=== PATIENT | male | born 1935 | race Caucasian/White ===

== ENCOUNTER 2018-09-14 08:37 | Inpatient (IN) | payer MEDICARE, OTHER, SELFPAY ==
[2018-09-14] VITALS (10 sets, daily range): BP systolic 147–177; BP diastolic 73–97; PULSE 48–57; RESP 14–16; TEMP 36.1–36.8; O2SAT 94–97; BMI 30.5; BMI 29.3
--- NOTE | 2018-09-14 08:51 | ED.RN ---
off balance, lightheaded with standing. denies while sitting or at rest.
--- NOTE | 2018-09-14 08:58 | CT_ITS ---
STUDY: CT BRAIN WITHOUT CONTRAST REASON FOR EXAM: Male, 82 years old. Dizziness. RADIATION DOSAGE (If Supplied By Facility): CTDIvol = ( 44.99 ) mGy, DLP = ( 846.73 ) mGycm TECHNIQUE: Transaxial CT imaging of the brain was performed without administration of intravenous contrast material. Individualized dose optimization techniques were used for this CT. COMPARISON: None. FINDINGS: Normal soft tissue structures. Normal calvarium. There is mild cerebral atrophy with widening of the extra-axial spaces and ventricular dilatation. Normal white matter tracts of the cerebral hemispheres. Normal basal ganglia and thalami. Normal brainstem. Normal cerebellum. There is no intracranial hemorrhage. There are no findings of an acute ischemic infarction. Dense calcification of the vertebral arteries bilaterally. Atherosclerotic calcification of the cavernous portions of the internal carotid arteries bilaterally. Result thickening of the right maxillary sinus. Partial opacification of the ethmoid sinuses. Mucosal thickening of the sphenoid sinus. CT/Brain/Head without Contrast IMPRESSION: Chronic involutional changes of the brain. Sinusitis as described. Electronically Signed: Martin Chavez MD at 9:34 EST Tel [phone], Service support ,
--- NOTE | 2018-09-14 08:58 | EKG12_ITS ---
Test Reason : DIZZINESS Blood Pressure : / mmHG Vent. Rate : 051 BPM Atrial Rate : 051 BPM P-R Int : 176 ms QRS Dur : 090 ms QT Int : 392 ms P-R-T Axes : 019 -02 037 degrees QTc Int : 361 ms Sinus bradycardia Otherwise normal ECG Confirmed by ALEC WORKMAN, DEVYN ([id number]), international editorial producer NATHALIE DOMINGUEZ ([id number]) on 09/17/2018 9:41:48 AM Referred By: SHANON Confirmed By:DEVYN MICHAEL MD
[2018-09-14 09:23] LABS: Absolute Lymphocyte Count 1.29 X10^3/ul (0.83-4.51); Basophil# 0.04 X10^3/uL; Basophil% 0.8 % (0-1); Eosinophil# 0.37 X10^3/uL; Eosinophils% 7.1 % (0-5); Hematocrit 39.5 % (40-54); Hemoglobin 13.6 g/dl (13.0-16.5); Lymphocyte # 1.29 X10^3/ul (4.0); Lymphocyte % 24.6 % (19-41); Mean Corp Hgb Conc 34.4 g/gl (32-36); Mean Corpuscular Hgb 31.9 pg (27.0-32.0); Mean Corpuscular Volume 92.5 fL (80-94); Mean Platelet Vol. 9.5 fl (6.2-12.0); Monocyte# 0.56 X10^3/uL; Monocyte% 10.7 % (0-10); Neutrophil # 2.97 X10^3/uL (2.7-7.7); Neutrophil % 56.6 % (47-70); POSITIVE COUNT NO; POSITIVE DIFFERENTIAL NO; POSITIVE MORPHOLOGY NO; Platelet Count 185 K/mm3 (150-450); RBC Distribution Width CV 13.5 % (11.6-14.6); RBC Distribution Width SD 44.6 fl (35.1-43.9); Red Blood Count 4.27 M/mm3 (4.6-6.2); White Blood Count 5.2 K/mm3 (4.4-11.0)
--- NOTE | 2018-09-14 09:25 | RAD_ITS ---
STUDY: X-RAY CHEST REASON FOR EXAM: Male, 82 years old. Dizziness. TECHNIQUE: Single AP portable view of the chest. COMPARISON: None. FINDINGS: EKG electrodes are seen. Hyperinflation. There is no demonstrated pleural abnormality. Normal size heart. Normal mediastinum and queta. Normal visualized pulmonary arteries. Normal visualized aortic arch and descending thoracic aorta. Normal visualized thoracic spine. Normal visualized ribs, clavicles, and shoulders. There is no demonstrated abnormality of the visualized soft tissue structures of the upper abdomen. RAD/Chest 1 View IMPRESSION: Normal x-ray examination of the chest. Electronically Signed: Martin Chavez MD at 9:38 EST Tel [phone], Service support ,
[2018-09-14 09:32] LABS: Partial Thromboplast Time 31.8 Seconds (24.1-36.2); Prothrombin Time (Protime)PT. 13.3 SECONDS (11.7-14.9)
[2018-09-14 09:51] LABS: BUN 14 mg/dL (7-18); BUN/Creat Ratio 14.9 RATIO (10-20); Creatinine, Serum 0.94 mg/dL (0.70-1.30); EST Glomerular Filtration Rate 82 mL/min (>60); Est Glom Filt Rate - Afr Amer 99 mL/min (>60); Estimated Creatinine Clearance 64.72 ml/min; Glucose 113 mg/dL (74-106)
[2018-09-14 09:52] LABS: Anion Gap 7 (5-15); Calcium,Total 9.5 mg/dL (8.5-10.1); Chloride 105 mmol/L (98-107); Sodium Level 140 mmol/L (136-145)
--- NOTE | 2018-09-14 10:12 | ED.DCSUM_ITS ---
- ER Visit Summary Date of Service: 09/14/18 Chief Complaint: Lightheaded History of Present Illness: The patient is a 82 M with lightheadedness that started Monday evening. He felt off balance when he stood up, and he has to hold onto something when he walks. Symptoms started Monday evening and then were worse yesterday and then even worse this morning. He attributed it to starting a muscle relaxer that he took Monday and Monday and . He did not take any today, but his symptoms persisted. He called 911 is having trouble getting around. He never had this before. He denies any other associated symptoms like vision changes, weakness, numbness, speech changes, or facial droop. No chest pain. No vertigo symptoms. No hearing changes or ear symptoms. No fevers or recent illness. No neck pain or trauma. Physical Examination: Patient is afebrile. Blood pressure 177/73 and heart rate 55. Otherwise vitals normal. He is alert and oriented and in no acute distress. Head and neck are atraumatic. Neck is nontender. Good range of motion. Cranial nerves grossly intact. Heart regular. Lungs clear. Abdomen soft. Moves all extremities. Good strength and sensation. NIH stroke scale is 0. Patient exhibits ataxia when ambulating. Test Results: EKG showed sinus rhythm at a rate of 51. CBC, BMP, coags, troponin normal. Chest x-ray and CT brain unremarkable except for chronic changes and sinusitis on the CT. Emergency Department Course and Treatment: Patient presents with ataxia. No vertigo symptoms. Normal NIH. I was concerned for stroke. He presents with bradycardia which is new for him. I also considered that this could be related to his medications, but I thought this might be less likely because he stopped taking his muscle relaxer yesterday. His workup was unremarkable except for some sinus bradycardia on the EKG and monitor. He had chronic CT brain changes. He does have objective ataxia. He is doing well when he is sitting down, but he has difficulty ambulating. I called the hospitalist for admission for further care. Treatment Plan: As above Disposition: Admission Impression: 1. Ataxia 2. Bradycardia This note was generated with [employer] software. It may contain incorrect words, spelling, and punctuation that were not noted in review of the chart prior to signing ED Disposition - Plan for ED Patient: Chief Complaint: Dizziness Referrals: Ang Vickers MD [Primary Care Provider] -
--- NOTE | 2018-09-14 10:29 | NURSING ---
PCU OBS DIZZINESS PAINTSIL
--- NOTE | 2018-09-14 10:36 | HP.PCM_ITS ---
Problem List (1) TIA (transient ischemic attack) Status: Acute (2) Hypertension Status: Chronic Qualifiers: Hypertension type: essential hypertension Qualified Code(s): I10 - Essential (primary) hypertension (3) Hyperlipidemia Status: Chronic Qualifiers: Hyperlipidemia type: unspecified Qualified Code(s): E78.5 - Hyperlipidemia, unspecified (4) BPH associated with nocturia Status: Chronic History of Present Illness Date of Admission: 09/14/18 Chief Complaint: Dizziness - 3 days The patient is a 82 year old M with past medical history of hypertension, hyperlipidemia, BPH who comes in with complaints of dizziness ongoing for 3 days. Since his dizziness started 3 nights ago, worse with movement, had problems with his balance. [place] as if he was drunk. Denied any room spinning. Did not have any focal weakness or numbness. Lasted for a few minutes and went away. He had it again a care in the next day. And subsequently on the day of admission. His called the EMS because she was worried that if he falls she will not be able to get him up. At time of examination, patient denied any complaints, says her dizziness has improved. Feels this gone down because he is not moving much. Denied any nausea or dizziness. Denied having any episodes like this before. Denied any recent upper respiratory infection or diarrhea. Denied any ringing in his ears. Vitals in the ED showed a BP of 90 8.1F, heart rate 55, blood pressure 177/73 with respiratory rate 16, SPO2 95% on room air. His admitting blood work showed RBC count 5.2, hemoglobin 13.8, platelet count 185, INR 1.0, APTT 31.8, sodium 140, potassium 4.0, chloride 105, bicarbonate 28, BUN 14, creatinine 0.94. HgBA1c 5.7. Troponins x2-, TSH 1.26. Check CT scan of the brain was negative, chest x-ray was unremarkable. Past Medical History Past Medical History (Chronic Problems): Chronic Problems Hypertension (Chronic) Hyperlipidemia (Chronic) BPH associated with nocturia (Chronic) Allergies No Known Allergies Allergy (Verified 09/14/18 08:45) Home Medications: Ambulatory Orders Medication Instructions Recorded Baclofen 20 mg PO TID PRN PRN 09/14/18 Finasteride 5 mg PO DAILY 09/14/18 Lisinopril/Hydrochlorothiazide 1 each PO DAILY 09/14/18 [Lisinopril-Hctz 20-12.5 mg Tab] Multivitamin [Once Daily] 1 each PO DAILY 09/14/18 Naproxen [Naprosyn] 500 mg PO BID 09/14/18 Simvastatin [Zocor] 40 mg PO QHS 09/14/18 Surgical History: rotator cuff repair - right, total hip arthroplasty - left, total knee arthroplasty - right, tonsillectomy Psychiatric History: No pertinent psych hx Lives: Spouse/ Significant Other Smoking Status: Former smoker Tobacco Use: Non-smoker Alcohol: Heavy Drugs: None - *Family History Maternal History Items: No pertinent history Paternal History Items: Heart Disease - CHF Review of Systems Constitutional: Denies: Anorexia, Chills, Fever, Malaise, Weakness, Weight Change Eyes: Denies: Blurred vision, Cataracts, Conjunctivae Inflammation, Pain, Redness, Vision Change HEENT: Denies: Difficulty Hearing, Difficulty Swallowing, Head Aches, Hearing Changes, Sinus Congestion, Sinus Drainage Cardiovascular: Reports: Light Headedness. Denies: Chest Pain, Claudication, Orthopnea, Palpitations Respiratory: Denies: Cough, Hemoptysis, Shortness of breath at rest, Shortness of breath upon exertion, Sputum production Gastrointestinal: Denies: Abdominal Pain, Constipation, Hematemesis, Hematochezia, Nausea, Vomiting Genitourinary: Denies: Dysuria Musculoskeletal: Denies: Joint Pain, Joint stiffness, Joint swelling, Joint Tenderness Skin: Denies: Rash, Wounds Neurological: Reports: Balance problems. Denies: Focal weakness, Numbness, Tingling Psychiatric: Denies: Anxiety, Depression, Homicidal Ideations, Suicidal Ideations Hematologic/ Lymphatic: Denies: Easy Bruising, Easy Bleeding VTE Information - Inpt Only VTE Present on Admission: No VTE Pharm Prophylaxis ordered?: Yes Patient Problems: Active and Suspected Problems TIA (transient ischemic attack) (Acute) Dizziness (Acute) - Physical Exam General: Alert, Oriented x3, Cooperative HEENT: Atraumatic, PERRLA, EOMI, Normocephalic Neck: Supple, No JVD, Negative Carotid Bruits Lungs: Clear to auscultation, Normal air movement Cardiovascular: Regular rate, No murmurs Abdomen: Bowel Sounds Present, Soft, Non Tender Extremities: No edema, Capillary Refill Less than 3 Seconds Skin: No rashes, No breakdown Musculoskeletal: No Tenderness to Palpation of Joints or Extremities Neurological: Cranial nerves II-XII grossly intact Psych/Mental Status: Normal Affect, Appropriate Vital Signs Temp Pulse Resp BP Pulse Ox 98.1 F 52 L 16 158/75 H 95 09/14/18 08:38 09/14/18 08:57 09/14/18 08:38 09/14/18 08:57 09/14/18 08:38 Oxygen Flow Rate (L/min) 2 Oxygen Delivery Method Nasal Cannula Weight: 96.5 kg Body Mass Index (BMI) 30.5 Laboratory Tests Past 24 Hrs 09/14/18 09/14/18 09/14/18 09:05 09:05 09:05 WBC 5.2 RBC 4.27 L Hgb 13.6 Hct 39.5 L MCV 92.5 MCH 31.9 MCHC 34.4 RDW 13.5 RDW Differential 44.6 H Plt Count 185 MPV 9.5 Immature Gran % (Auto) 0.200 Neut % (Auto) 56.6 Lymph % (Auto) 24.6 [place] % (Auto) 10.7 H Eos % (Auto) 7.1 H Baso % (Auto) 0.8 Absolute Neuts (auto) 3.0 Absolute Lymphs (auto) 1.29 Total Counted Not Reportable PT 13.3 INR 1.0 APTT 31.8 Sodium 140 Potassium 4.0 Chloride 105 Carbon Dioxide 28.0 Anion Gap 7 BUN 14 Creatinine 0.94 Estim Creat Clear Calc 64.72 Est GFR (MDRD) Af Amer 99 Est GFR (MDRD) Non-Af 82 BUN/Creatinine Ratio 14.9 Glucose 113 H Calcium 9.5 Troponin I < 0.015 Assessment/Plan All Active Problems TIA (transient ischemic attack) (Acute) Dizziness (Acute) 82 year old M with past medical history of hypertension, hyperlipidemia, BPH who comes in with complaints of dizziness ongoing for 3 days. Since his dizziness started 3 nights ago, worse with movement, had problems with his balance. [place] as if he was drunk. Denied any room spinning. Did not have any focal weakness or numbness. 1. Dizziness, suspicious for possible posterior circulation CVA vs BPPV, in a patient with multiple risk factors Plan: Admit to PCU, keep on a monitored bed, monitor on telemetry, neurology consult, MRI of the brain, MRA of the head and neck, aspirin 81 mg p.o. daily, monitor. Protocol with NIH SS, 2D echo, PT, OT, ST consults 2. Hypertension, uncontrolled, continue home regimen, her vitals closely 3. Hyperlipidemia, on statin 4. BPH, on finasteride 5. DVT prophylaxis with Lovenox Sc Code Visit OBSV E&M: [id number] Initial observation care L3
--- NOTE | 2018-09-14 10:56 | MRI_ITS ---
STUDY: MRA NECK WITH AND WITHOUT CONTRAST REASON FOR EXAM: Male, 82 years old. Lightheaded and dizziness TECHNIQUE: 3-D nsvo-wl-kdnfec (TOF) imaging was performed in an 1.5 T MRI scanner. 10 ml of Gadavist was administered for the contrast enhanced images. COMPARISON: None. FINDINGS: RIGHT CAROTID ARTERIES: Normal right common carotid artery (CCA). Normal right common carotid bulb. Normal origin of the right internal carotid (ICA) artery without a hemodynamically significant stenosis. Normal visualized cervical portion of the right internal carotid artery. Normal origin of the right external carotid artery (ECA). LEFT CAROTID ARTERIES: Normal left common carotid artery (CCA). Normal left common carotid bulb. Normal origin of the left internal carotid (ICA) artery without a hemodynamically significant stenosis. Normal visualized cervical portion of the left internal carotid artery. Normal origin of the left external carotid artery (ECA). VERTEBRAL ARTERIES: Left vertebral artery is severely narrowed throughout the V3 segment. Right vertebral artery is dominant and normal. MRI/MRA Neck WITH Contrast IMPRESSION: Severely narrowed distal left vertebral artery otherwise unremarkable exam Electronically Signed: Ricardo Copeland MD at 16:59 EST , Service support ,
--- NOTE | 2018-09-14 10:56 | MRI_ITS ---
STUDY: MRA OF THE HEAD WITHOUT CONTRAST REASON FOR EXAM: Male, 82 years old. Lightheaded and dizzy since Monday TECHNIQUE: 3-D hnzb-hn-tzzfym (TOF) imaging was performed with MIPs. The study was performed unenhanced. COMPARISON: CT the brain from today FINDINGS: Normal bilateral petrous carotid arteries. Normal right cavernous carotid artery with a normal supraclinoid bifurcation. Normal left cavernous carotid artery with a normal supraclinoid bifurcation. Normal right A1 segments of the anterior cerebral artery. Normal left A1 segments of the anterior cerebral artery. Normal intact anterior communicating artery (ACOM). Normal bilateral A2 segments of the anterior cerebral arteries. Normal right M1 and M2 segments of the middle cerebral arteries, with a normal M1 bifurcation. Normal left M1 and M2 segments of the middle cerebral arteries, with a normal M1 bifurcation. Normal right posterior communicating artery (PCOM). Normal left posterior communicating artery (PCOM). Narrowed left vertebral artery distally. Right vertebral artery is visualized and appears normal. There is tortuosity with elongation of the basilar artery. The visualized bilateral superior cerebellar (SCA) arteries are normal. Normal bilateral P1, P2 and visualized P3 segments of the posterior cerebral arteries. There is no demonstrated aneurysm of the [place] of [place]. There is no major vessel occlusion or hemodynamically significant stenosis. There is no demonstrated abnormality of the visualized brain. 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 Tortuous basilar artery. Otherwise unremarkable exam. Electronically Signed: Ricardo Copeland MD at 16:23 EST , Service support ,
--- NOTE | 2018-09-14 10:56 | MRI_ITS ---
STUDY: MRI BRAIN WITHOUT CONTRAST REASON FOR EXAM: Male, 82 years old. Lightheaded and dizzy since Monday TECHNIQUE: Standardized multiplanar fat and water weighted pulse sequences were obtained. COMPARISON: CT brain from today FINDINGS: There is mild cerebral atrophy with widening of the extra-axial spaces and ventricular dilatation. There are a limited number of small white matter hyperintensities, distributed throughout the deep white matter tracts of the cerebral hemispheres, consistent with mild chronic white matter ischemic changes. There is no evidence for recent intracranial ischemia or other cause of cytotoxic edema on diffusion weighted imaging (DWI). Normal bilateral basal ganglia. Normal thalami. There is no extra-axial fluid accumulation. Normal flow voids within the major intracranial circulation suggesting patency by spin echo criteria. Normal sella turcica, pituitary gland, infundibular stalk, optic chiasm and hypothalamus. Normal tectal plate and pineal gland. Normal midbrain, ash[place] and medulla. Normal cerebellum. Normal basal cisterns. Normal bilateral temporal bones. Normal bilateral internal auditory canals. Scleral banding left globe. Normal visualized paranasal sinuses. Normal calvarium and skull base. Normal visualized soft tissue structures. Normal visualized upper cervical spine. MRI/Brain without Contrast IMPRESSION: Involutional changes of the brain, as described above. Electronically Signed: Ricardo Copeland MD at 16:15 EST , Service support ,
--- NOTE | 2018-09-14 10:56 | ECHOD_ITS ---
Reason For Study: TIA/CVA Procedure This was a 2D Doppler, Color Flow transthoracic echocardiogram. Exam performed portable in patient room. Left Ventricle Normal LV size. Left ventricular systolic function is normal. The estimated ejection fraction is 60 %. Stage 1 diastolic dysfunction. No regional wall motion abnormalities noted. Right Ventricle Normal RV size. Normal systolic function. Atria Normal left atrium. Normal right atrium. Bubble contrast study negative for right to left interatrial shunt. Mitral Valve Normal mitral valve. Tricuspid Valve Normal tricuspid valve. Aortic Valve Normal aortic valve. Trisinus/trileaflet aortic valve. Pulmonic Valve Normal pulmonic valve. Great Vessels Normal aortic root. The pulmonary artery is normal size. Normal inferior vena cava. Pericardium/Pleural No pericardial effusion. Medication Performed a rapid injection of agitated mix of 9 cc saline and 1cc air to assess for atrial septal defect. MMode/2D Measurements & Calculations LVIDd: 4.7 cm IVSd: 1.6 cm LVOT diam: 2.0 cm LVIDs: 2.5 cm LVPWd: 1.2 cm RVDd: 4.4 cm FS: 45.8 % LVOT area: 3.2 cm2 Ao root diam: 3.8 cm LAV(MOD-bp): 76.5 ml LVAd ap4: 35.8 cm2 LA dimension: 4.9 cm LAV(MOD-bp) Indexed: 36.8 ml/m2 EDV(MOD-sp4): 127.0 ml LAV(MOD-sp2): 71.4 ml EDV(sp4-el): 128.6 ml LAV(MOD-sp4): 75.9 ml LVAs ap4: 17.9 cm2 ESV(MOD-sp4): 40.5 ml ESV(sp4-el): 41.2 ml EF(MOD-sp4): 68.1 % EF(sp4-el): 67.9 % SV(MOD-sp4): 86.4 ml SV(sp4-el): 87.4 ml LA A4 area: 23.1 cm2 RA A4 area: 23.2 cm2 Time Measurements MV dec time: 0.20 sec Doppler Measurements & Calculations MV E max mateo: 79.3 cm/sec Lat Peak E' Mateo: 8.1 cm/sec Med Peak E' Mateo: 6.8 cm/sec MV A max mateo: 64.7 cm/sec E/E' lat: 9.7 E/E' med: 11.6 MV E/A: 1.2 MV V2 max: 86.1 cm/sec MV P1/2t max mateo: 87.6 cm/sec Ao V2 max: 163.1 cm/sec MV max P.0 mmHg MV P1/2t: 69.2 msec Ao max P.6 mmHg MV V2 mean: 45.2 cm/sec MV dec slope: 370.9 cm/sec2 Ao V2 mean: 95.1 cm/sec MV mean P.97 mmHg MVA(P1/2t): 3.2 cm2 Ao mean P.4 mmHg MV V2 VTI: 28.9 cm Ao V2 VTI: 30.1 cm MVA(VTI): 2.5 cm2 SJ(I,D): 2.4 cm2 SJ(V,D): 1.8 cm2 LV V1 max: 91.2 cm/sec SV(LVOT): 73.4 ml PA V2 max: 89.6 cm/sec LV V1 max P.3 mmHg LV V1 mean P.6 mmHg LV V1 mean: 58.5 cm/sec LV V1 VTI: 22.7 cm TR max mateo: 266.3 cm/sec TR max P.4 mmHg Interpretation Summary Normal LV size. Left ventricular systolic function is normal. The estimated ejection fraction is 60 %. Stage 1 diastolic dysfunction. Bubble contrast study negative for right to left interatrial shunt. Ordering Physician: Donna Fowler Referring Physician: Ang Vickers M.D. Performed By: Rodolfo Mcpherson RCS
[2018-09-14 11:40] LABS: Thyroid Stim Hormone (TSH) 1.26 uIU/mL (0.358-3.74)
[2018-09-14 12:03] LABS: Hemoglobin A1c 5.7 % (4.2-6.3)
--- NOTE | 2018-09-14 15:00 | CON.PCM_ITS ---
Problem List (1) Dizziness Status: Acute Reason for Consult Date of Consultation: 09/14/18 Reason for Consultation: Dizziness History of Present Illness: The patient is a 82 year old M with PMH HTN, HLD, BPH admitted with dizziness. Per patient he started feeling dizzy since last night, woke up this morning and later again felt her was dizzy and light headed, felt had balance issues, was wobbly and had to hold to on to things. Denies any room spinning sensation. Denies any focal motor weakness, sensory loss, PERALTA, visual disturbances or speech disturbances, He was recently started on Baclofen for his hip issues and that is the only new medication he is taking per patient. Denies any ear ache or tinnitus. Dizziness occurs while walking per patient. Lives with , denies any frequent falls, dose not use cane or walker to ambulate, does drive and does not need any assistance for his ADLs. CT head done on admission did not report to show anything acute. [] Past Medical History Past Medical History (Chronic Problems): Chronic Problems Hypertension (Chronic) Allergies No Known Allergies Allergy (Verified 09/14/18 08:45) Home Medications: Ambulatory Orders Medication Instructions Recorded Baclofen 20 mg PO TID PRN PRN 09/14/18 Finasteride 5 mg PO DAILY 09/14/18 Lisinopril/Hydrochlorothiazide 1 each PO DAILY 09/14/18 [Lisinopril-Hctz 20-12.5 mg Tab] Multivitamin [Once Daily] 1 each PO DAILY 09/14/18 Naproxen [Naprosyn] 500 mg PO BID 09/14/18 Simvastatin [Zocor] 40 mg PO QHS 09/14/18 Lives: Spouse/ Significant Other Smoking Status: Former smoker Alcohol: None Drugs: None Review of Systems Constitutional: Reports: - - complete ROS negative except as documented in HPI Patient Problems: Active and Suspected Problems TIA (transient ischemic attack) (Acute) Hyperlipidemia (Acute) Dizziness (Acute) - Physical Exam General: Alert HEENT: Normocephalic Neck: Supple Lungs: Clear to auscultation Cardiovascular: Normal S1, Normal S2 Abdomen: Bowel Sounds Present Extremities: No cyanosis Neurological: - - consious, awake, AoA x3, CN 2-12 grossly intact, power 5/5 all 4 extremities, no sensory loss, no cerebellar signs, Reflexes + B/L B/S/T/k/A, gait deferred, No nystagmus, no NR Psych/Mental Status: Normal Affect Vital Signs Temp Pulse Resp BP Pulse Ox 97.7 F L 51 L 16 157/78 H 95 09/14/18 12:09 09/14/18 12:09 09/14/18 12:09 09/14/18 12:09 09/14/18 12:09 Oxygen Flow Rate (L/min) 2 Oxygen Delivery Method Room Air Weight: 92.7 kg Body Mass Index (BMI) 29.3 Laboratory Tests Past 24 Hrs 09/14/18 09/14/18 09/14/18 09:05 09:05 09:05 WBC 5.2 RBC 4.27 L Hgb 13.6 Hct 39.5 L MCV 92.5 MCH 31.9 MCHC 34.4 RDW 13.5 RDW Differential 44.6 H Plt Count 185 MPV 9.5 Immature Gran % (Auto) 0.200 Neut % (Auto) 56.6 Lymph % (Auto) 24.6 [place] % (Auto) 10.7 H Eos % (Auto) 7.1 H Baso % (Auto) 0.8 Absolute Neuts (auto) 3.0 Absolute Lymphs (auto) 1.29 Total Counted Not Reportable PT 13.3 INR 1.0 APTT 31.8 Sodium 140 Potassium 4.0 Chloride 105 Carbon Dioxide 28.0 Anion Gap 7 BUN 14 Creatinine 0.94 Estim Creat Clear Calc 64.72 Est GFR (MDRD) Af Amer 99 Est GFR (MDRD) Non-Af 82 BUN/Creatinine Ratio 14.9 Glucose 113 H Hemoglobin A1c Calcium 9.5 Troponin I < 0.015 TSH 09/14/18 09/14/18 09/14/18 09:05 09:05 12:20 WBC RBC Hgb Hct MCV MCH MCHC RDW RDW Differential Plt Count MPV Immature Gran % (Auto) Neut % (Auto) Lymph % (Auto) [place] % (Auto) Eos % (Auto) Baso % (Auto) Absolute Neuts (auto) Absolute Lymphs (auto) Total Counted PT INR APTT Sodium Potassium Chloride Carbon Dioxide Anion Gap BUN Creatinine Estim Creat Clear Calc Est GFR (MDRD) Af Amer Est GFR (MDRD) Non-Af BUN/Creatinine Ratio Glucose Hemoglobin A1c 5.7 Calcium Troponin I < 0.015 TSH 1.26 Assessment/Plan All Active Problems TIA (transient ischemic attack) (Acute) Hyperlipidemia (Acute) Dizziness (Acute) The patient is a 82 year old M with PMH HTN, HLD, BPH admitted with dizziness. Per patient he started feeling dizzy since last night, woke up this morning and later again felt her was dizzy and light headed, felt had balance issues, was wobbly and had to hold to on to things. Denies any room spinning sensation. Denies any focal motor weakness, sensory loss, PERALTA, visual disturbances or speech disturbances, He was recently started on Baclofen for his hip issues and that is the only new medication he is taking per patient. Denies any ear ache or tinnitus. Dizziness occurs while walking per patient. Lives with , denies any frequent falls, dose not use cane or walker to ambulate, does drive and does not need any assistance for his ADLs. CT head done on admission did not report to show anything acute. Impression Dizziness- R/O posterior circulation stroke vs peripheral etiology Less likely to be TIA Plan -On ASA -Check MRI brain w/o contrast -Check MRA head/neck -Check TTE/LDL/ and Hba1c -Frequent neuro checks -Stroke risk factors discussed and stroke education provided -If neuroimaging negative then would consider vestibular therapy and ENT consult -Orthostatic vitals -Fall precautions -GI/DVT prophylaxis -PT/OT and ST -Further medical management per hospitalist team -Neurology follow up in 4 weeks as outpatient -Please call with questions if any -Thank you for allowing us to participate in patient's are and management Code Visit Inpatient E&M: [id number] Init Hosp L3
[2018-09-14] MEDS: hydroCHLOROthiazide 12.5mg 12.5 MG PO (16:11)
[2018-09-14] MEDS: Finasteride 5 MG Tablet PO (16:11)
[2018-09-14] MEDS: Lisinopril 20 MG Tablet PO (16:11)
[2018-09-14] MEDS: Multivitamins,Therapeutic Tablet 1 TABLET PO (16:11)
[2018-09-14] MEDS: Aspirin 81 MG TAB.CHEW PO (16:16)
[2018-09-14] MEDS: Atorvastatin Calcium 20 MG Tablet PO (21:25)
[2018-09-15 02:18] VITALS: BP 144/76; PULSE 55; RESP 16; TEMP 36.9; O2SAT 97
[2018-09-15 02:21] VITALS: BP 144/76; BP 156/91; BP 157/68; PULSE 55; PULSE 68; PULSE 69
[2018-09-15 02:58] VITALS: PULSE 56
[2018-09-15 06:35] VITALS: BP 158/82; PULSE 55; RESP 16; TEMP 36.9; O2SAT 95
[2018-09-15 06:41] LABS: Anion Gap 4 (5-15); BUN 14 mg/dL (7-18); BUN/Creat Ratio 14.2 RATIO (10-20); Calcium,Total 8.9 mg/dL (8.5-10.1); Chloride 106 mmol/L (98-107); Cholesterol 148 mg/dL (200); Creatinine, Serum 0.99 mg/dL (0.70-1.30); EST Glomerular Filtration Rate 78 mL/min (>60); Est Glom Filt Rate - Afr Amer 94 mL/min (>60); Estimated Creatinine Clearance 61.45 ml/min; Glucose 96 mg/dL (74-106); High Density Lipoprotein 52 mg/dL; Potassium 4.2 mmol/L (3.5-5.1); Sodium Level 139 mmol/L (136-145); Triglycerides 113 mg/dL; Very Low Density Lipoprotein 23 mg/dL (5-40)
[2018-09-15 07:00] VITALS: PULSE 60
[2018-09-15] MEDS: Aspirin 81 MG TAB.CHEW PO (08:30)
[2018-09-15] MEDS: Enoxaparin 40 MG/0.4 ML Syringe SC (08:30)
[2018-09-15] MEDS: hydroCHLOROthiazide 12.5mg 12.5 MG PO (08:30)
[2018-09-15] MEDS: Multivitamins,Therapeutic Tablet 1 TABLET PO (08:30)
[2018-09-15] MEDS: Finasteride 5 MG Tablet PO (08:31)
[2018-09-15] MEDS: Lisinopril 20 MG Tablet PO (08:31)
[2018-09-15 08:33] VITALS: BP 155/88; PULSE 56; RESP 12; TEMP 36.9; O2SAT 97
--- NOTE | 2018-09-15 10:50 | PCM.DC ---
- Discharge Diagnoses Current Active Problems: Current Active and Chronic Problems Hypertension (Chronic) Hyperlipidemia (Chronic) Dizziness (Acute) BPH associated with nocturia (Chronic) You will use the following diet at home:: Cardiac Discharge Activity: Return to Normal Activity Call your doctor if you observe: Numbness or Tingling, Shortness of breath, Dizziness, Fainting spells Allergies/Adverse Reactions: Allergies No Known Allergies Allergy (Verified 09/14/18 08:45) Medications to take at Discharge Finasteride 5 mg PO DAILY 09/14/18 Lisinopril/Hydrochlorothiazide [Lisinopril-Hctz 20-12.5 mg Tab] 1 each PO DAILY 09/14/18 Multivitamin [Once Daily] 1 each PO DAILY 09/14/18 Naproxen [Naprosyn] 500 mg PO BID 09/14/18 Aspirin [Aspirin, Baby] 81 mg PO DAILY@0800 #30 tab.chew 09/15/18 Atorvastatin Calcium 40 mg PO QHS #30 tablet 09/15/18 The following prescriptions were given: Aspirin [Aspirin, Baby] 81 mg PO DAILY@0800 #30 tab.chew Atorvastatin Calcium 40 mg PO QHS #30 tablet Primary Care Physician: Ang Vickers MD [Primary Care Provider] - Please follow up with your Primary Care Physician in: 1 Week Test Results: Test results from this visit will be discussed in further detail at your follow-up appointment, if applicable. Please Follow Up With: Rancho Brown MD When: 4 weeks Please Follow Up With: Guero Ray MD - ENT, When: Next week, as soon as possible Proposed Discharge Date: 09/15/18
--- NOTE | 2018-09-15 10:55 | DCINST_ITS ---
- Discharge Diagnoses Current Active Problems: Current Active and Chronic Problems Hypertension (Chronic) Hyperlipidemia (Chronic) Dizziness (Acute) BPH associated with nocturia (Chronic) You will use the following diet at home:: Cardiac Discharge Activity: Return to Normal Activity Call your doctor if you observe: Numbness or Tingling, Shortness of breath, Dizziness, Fainting spells Allergies/Adverse Reactions: Allergies No Known Allergies Allergy (Verified 09/14/18 08:45) Medications to take at Discharge Finasteride 5 mg PO DAILY 09/14/18 Lisinopril/Hydrochlorothiazide [Lisinopril-Hctz 20-12.5 mg Tab] 1 each PO DAILY 09/14/18 Multivitamin [Once Daily] 1 each PO DAILY 09/14/18 Naproxen [Naprosyn] 500 mg PO BID 09/14/18 Aspirin [Aspirin, Baby] 81 mg PO DAILY@0800 #30 tab.chew 09/15/18 Atorvastatin Calcium 40 mg PO QHS #30 tablet 09/15/18 The following prescriptions were given: Aspirin [Aspirin, Baby] 81 mg PO DAILY@0800 #30 tab.chew Atorvastatin Calcium 40 mg PO QHS #30 tablet Primary Care Physician: Ang Vickers MD [Primary Care Provider] - Please follow up with your Primary Care Physician in: 1 Week Test Results: Test results from this visit will be discussed in further detail at your follow- up appointment, if applicable. Please Follow Up With: Rancho Brown MD When: 4 weeks Please Follow Up With: Guero Ray MD - ENT, When: Next week, as soon as possible Proposed Discharge Date: 09/15/18
--- NOTE | 2018-09-15 14:08 | PCM.DC.SUM ---
<Lisa Howard - Last Filed: 09/15/18 14:14> Discharge Date and Diagnosis Date of Admission: 09/14/18 Date of Discharge: 09/15/18 - Primary Discharge Diagnosis 1. Suspected BPPV, CVA ruled out 2. Distal left vertebral artery stenosis 3. Hypertension 4. Hyperlipidemia 5. BPH - Secondary Discharge Diagnosis Chronic Problems Hypertension (Chronic) Hyperlipidemia (Chronic) BPH associated with nocturia (Chronic) Hospital Course and Treatment Imaging Results: Diagnostic Data Brain CT 09/14/18 08:58 IMPRESSION: Chronic involutional changes of the brain. Sinusitis as described. Electronically Signed: Martin Chavez MD at 9:34 EST Tel [phone], Service support , Chest X-Ray 09/14/18 09:25 IMPRESSION: Normal x-ray examination of the chest. Electronically Signed: Martin Chavez MD at 9:38 EST Tel [phone], Service support , Brain MRI 09/14/18 10:56 IMPRESSION: Involutional changes of the brain, as described above. Electronically Signed: Ricardo Copeland MD at 16:15 EST , Service support , Head MRA 09/14/18 10:56 IMPRESSION: Moderate stenosis distal vertebral artery on the left. Tortuous basilar artery. Otherwise unremarkable exam. Electronically Signed: Ricardo Copeland MD at 16:23 EST , Service support , Neck MRA 09/14/18 10:56 IMPRESSION: Severely narrowed distal left vertebral artery otherwise unremarkable exam Electronically Signed: Ricardo Copeland MD at 16:59 EST , Service support , Dr. Brown- Neurology Operations: None Procedures: 2-D Echocardiogram Summary of Care Provided: The patient is a 82 year old M admitted 09/14/2018 due to dizziness times 3 days. 1. Suspected BPPV, CVA ruled out-MRI of brain without acute infarct. Echocardiogram shows an EF of 60%, stage I diastolic dysfunction. Dizziness reproducible. Neurology suspects peripheral etiology. Patient referred to ENT at discharge for vestibular therapy. Orthostatic vitals negative. Follow-up with neurology in 4 weeks. 2. Distal left vertebral artery stenosis-MRA of neck showed severely narrowed distal left vertebral artery. Patient's statin regimen changed to atorvastatin 40 mg p.o. nightly. 3. Hypertension-elevated on admission, improved. Continue home lisinopril/HCTZ regimen. 4. Hyperlipidemia-continue statin. Changed to atorvastatin as noted above. 5. BPH-continue finasteride regimen. General: Alert, Oriented x3, Cooperative, no acute distress HEENT: Atraumatic, PERRLA, EOMI, Normocephalic Neck: Supple, No JVD, Negative Carotid Bruits Lungs: Clear to auscultation, Normal air movement Cardiovascular: Regular rate, No murmurs Abdomen: Bowel Sounds Present, Soft, Non Tender Extremities: No edema, Capillary Refill Less than 3 Seconds Skin: No rashes, No breakdown Musculoskeletal: No Tenderness to Palpation of Joints or Extremities Neurological: Cranial nerves II-XII grossly intact, neuro grossly intact Psych/Mental Status: Normal Affect, Appropriate Patient seen and examined prior to discharge. Physical assessment as noted above. Patient is stable for discharge with follow up recommendations as noted above. This patient was seen by JANA Driver under the supervision of Dr. Fowler. - Physical Exam Vital Signs Temp Pulse Resp BP Pulse Ox 98.4 F 56 L 12 155/88 H 97 09/15/18 08:33 09/15/18 08:33 09/15/18 08:33 09/15/18 08:33 09/15/18 08:33 Oxygen Flow Rate (L/min) 2 Oxygen Delivery Method Room Air Weight: 205 lb 0.478 oz Body Mass Index (BMI) 29.3 Intake and Output for Last 24 Hours 09/13/18 09/14/18 09/15/18 23:59 23:59 23:59 Intake Total 400 / 400 120 / 120 Output Total 450 / 450 Balance 400 / 400 -330 / -330 Laboratory Tests Past 24 Hrs 09/14/18 09/15/18 15:50 06:05 Sodium 139 Potassium 4.2 Chloride 106 Carbon Dioxide 29.0 Anion Gap 4 L BUN 14 Creatinine 0.99 Estim Creat Clear Calc 61.45 Est GFR (MDRD) Af Amer 94 Est GFR (MDRD) Non-Af 78 BUN/Creatinine Ratio 14.2 Glucose 96 Calcium 8.9 Troponin I 0.017 Triglycerides 113 Cholesterol 148 LDL Cholesterol 73 VLDL Cholesterol 23 HDL Cholesterol 52 Discharge Diet: Low fat/ Low Cholesterol Discharge Activity: Return to Normal Activity Call your doctor if you observe: Numbness or Tingling, Shortness of breath, Dizziness, Fainting spells Home Medications: Medications to take at Discharge Finasteride 5 mg PO DAILY 09/14/18 Lisinopril/Hydrochlorothiazide [Lisinopril-Hctz 20-12.5 mg Tab] 1 each PO DAILY 09/14/18 Multivitamin [Once Daily] 1 each PO DAILY 09/14/18 Naproxen [Naprosyn] 500 mg PO BID 09/14/18 Aspirin [Aspirin, Baby] 81 mg PO DAILY@0800 #30 tab.chew 09/15/18 Atorvastatin Calcium 40 mg PO QHS #30 tablet 09/15/18 Following Prescrptions Were Given to Patient: Aspirin [Aspirin, Baby] 81 mg PO DAILY@0800 #30 tab.chew Atorvastatin Calcium 40 mg PO QHS #30 tablet Primary Care Physician: Ang Vickers MD [Primary Care Provider] - Please follow up with your Primary Care Physician in: 1 Week Please Follow Up With: Rancho Brown MD When: 4 weeks Please Follow Up With: Guero Ray MD When: Next week, as soon as possible Disposition: Home Minutes spent on discharge:: 35 Patient Condition:: Stable Medical Necessity - Tobacco Use Smoking Status: Former smoker Tobacco Use: Non-smoker Meaningful Use Info Meaningful Use Diagnoses (Choose all that apply): None applicable <Donna Fowler - Last Filed: 09/16/18 11:47> Discharge Date and Diagnosis - Secondary Discharge Diagnosis Chronic Problems Hypertension (Chronic) Hyperlipidemia (Chronic) BPH associated with nocturia (Chronic) Hospital Course and Treatment Summary of Care Provided: This patient was seen in conjunction with Lisa Howard NP. I have independently interviewed and examined the patient and reviewed pertinent historical, laboratory, and other data. Please refer to her note for patient's presentation, findings, and recommendations. In summary, The patient is a 82 year old M past medical history of hypertension, hyperlipidemia, BPH who comes in with a 3-day history of dizziness that is worse with movement resulting in problems with his balance. Patient was admitted to the telemetry bed, monitored on telemetry with no acute events. Neurology was consulted. MRI of the brain as well as MRA of the head and neck was essential negative. It did show some incidental distal left vertebral artery stenosis. Patient continued to be mildly dizzy. Was seen by PT and OT. Patient was felt to have possible BPPV. CVA was ruled out. He was given a prescription for follow-up with outpatient vestibular therapy. He was discharged on aspirin and statin. Subjective: The day of discharge, patient was seen and examined. He feels much improved. No acute events overnight. No acute events on telemetry. He has very mild dizziness on working with physical therapy. Discussed patient's negative MRI results in detail with him and his family. All questions were answered. Objective: Physical Exam General: Alert, Oriented x3, Cooperative HEENT: Atraumatic, PERRLA, EOMI, Normocephalic Neck: Supple, No JVD, Negative Carotid Bruits Lungs: Clear to auscultation, Normal air movement Cardiovascular: Regular rate, No murmurs Abdomen: Bowel Sounds Present, Soft, Non Tender Extremities: No edema, Capillary Refill Less than 3 Seconds Skin: No rashes, No breakdown Musculoskeletal: No Tenderness to Palpation of Joints or Extremities Neurological: Cranial nerves II-XII grossly intact Psych/Mental Status: Normal Affect, Appropriate - Physical Exam Vital Signs Temp Pulse Resp BP Pulse Ox 98.4 F 56 L 12 155/88 H 97 09/15/18 08:33 09/15/18 08:33 09/15/18 08:33 09/15/18 08:33 09/15/18 08:33 Oxygen Flow Rate (L/min) 2 Oxygen Delivery Method Room Air Weight: 93 kg Body Mass Index (BMI) 29.3 Intake and Output for Last 24 Hours 09/14/18 09/15/18 09/16/18 23:59 23:59 23:59 Intake Total 400 / 400 120 / 120 Output Total 450 / 450 Balance 400 / 400 -330 / -330 Code Visit OBSV E&M: 57782 Observation care discharge
--- NOTE | 2018-09-15 14:14 | DS.PCM_ITS ---
<Lisa Howard - Last Filed: 09/15/18 14:14> Discharge Date and Diagnosis Date of Admission: 09/14/18 Date of Discharge: 09/15/18 - Primary Discharge Diagnosis 1. Suspected BPPV, CVA ruled out 2. Distal left vertebral artery stenosis 3. Hypertension 4. Hyperlipidemia 5. BPH - Secondary Discharge Diagnosis Chronic Problems Hypertension (Chronic) Hyperlipidemia (Chronic) BPH associated with nocturia (Chronic) Hospital Course and Treatment Imaging Results: Diagnostic Data Brain CT 09/14/18 08:58 IMPRESSION: Chronic involutional changes of the brain. Sinusitis as described. Electronically Signed: Martin Chavez MD at 9:34 EST Tel [phone], Service support , Chest X-Ray 09/14/18 09:25 IMPRESSION: Normal x-ray examination of the chest. Electronically Signed: Martin Chavez MD at 9:38 EST Tel [phone], Service support , Brain MRI 09/14/18 10:56 IMPRESSION: Involutional changes of the brain, as described above. Electronically Signed: Ricardo oCpeland MD at 16:15 EST , Service support , Head MRA 09/14/18 10:56 IMPRESSION: Moderate stenosis distal vertebral artery on the left. Tortuous basilar artery. Otherwise unremarkable exam. Electronically Signed: Ricardo Copeland MD at 16:23 EST , Service support , Neck MRA 09/14/18 10:56 IMPRESSION: Severely narrowed distal left vertebral artery otherwise unremarkable exam Electronically Signed: Ricardo Copeland MD at 16:59 EST , Service support , Dr. Brown- Neurology Operations: None Procedures: 2-D Echocardiogram Summary of Care Provided: The patient is a 82 year old M admitted 09/14/2018 due to dizziness times 3 days. 1. Suspected BPPV, CVA ruled out-MRI of brain without acute infarct. Echocardiogram shows an EF of 60%, stage I diastolic dysfunction. Dizziness reproducible. Neurology suspects peripheral etiology. Patient referred to ENT at discharge for vestibular therapy. Orthostatic vitals negative. Follow-up with neurology in 4 weeks. 2. Distal left vertebral artery stenosis-MRA of neck showed severely narrowed distal left vertebral artery. Patient's statin regimen changed to atorvastatin 40 mg p.o. nightly. 3. Hypertension-elevated on admission, improved. Continue home lisinopril/HCTZ regimen. 4. Hyperlipidemia-continue statin. Changed to atorvastatin as noted above. 5. BPH-continue finasteride regimen. General: Alert, Oriented x3, Cooperative, no acute distress HEENT: Atraumatic, PERRLA, EOMI, Normocephalic Neck: Supple, No JVD, Negative Carotid Bruits Lungs: Clear to auscultation, Normal air movement Cardiovascular: Regular rate, No murmurs Abdomen: Bowel Sounds Present, Soft, Non Tender Extremities: No edema, Capillary Refill Less than 3 Seconds Skin: No rashes, No breakdown Musculoskeletal: No Tenderness to Palpation of Joints or Extremities Neurological: Cranial nerves II-XII grossly intact, neuro grossly intact Psych/Mental Status: Normal Affect, Appropriate Patient seen and examined prior to discharge. Physical assessment as noted above. Patient is stable for discharge with follow up recommendations as noted above. This patient was seen by JANA Driver under the supervision of Dr. Fowler. - Physical Exam Vital Signs Temp Pulse Resp BP Pulse Ox 98.4 F 56 L 12 155/88 H 97 09/15/18 08:33 09/15/18 08:33 09/15/18 08:33 09/15/18 08:33 09/15/18 08:33 Oxygen Flow Rate (L/min) 2 Oxygen Delivery Method Room Air Weight: 205 lb 0.478 oz Body Mass Index (BMI) 29.3 Intake and Output for Last 24 Hours 09/13/18 09/14/18 09/15/18 23:59 23:59 23:59 Intake Total 400 / 400 120 / 120 Output Total 450 / 450 Balance 400 / 400 -330 / -330 Laboratory Tests Past 24 Hrs 09/14/18 09/15/18 15:50 06:05 Sodium 139 Potassium 4.2 Chloride 106 Carbon Dioxide 29.0 Anion Gap 4 L BUN 14 Creatinine 0.99 Estim Creat Clear Calc 61.45 Est GFR (MDRD) Af Amer 94 Est GFR (MDRD) Non-Af 78 BUN/Creatinine Ratio 14.2 Glucose 96 Calcium 8.9 Troponin I 0.017 Triglycerides 113 Cholesterol 148 LDL Cholesterol 73 VLDL Cholesterol 23 HDL Cholesterol 52 Discharge Diet: Low fat/ Low Cholesterol Discharge Activity: Return to Normal Activity Call your doctor if you observe: Numbness or Tingling, Shortness of breath, Dizziness, Fainting spells Home Medications: Medications to take at Discharge Finasteride 5 mg PO DAILY 09/14/18 Lisinopril/Hydrochlorothiazide [Lisinopril-Hctz 20-12.5 mg Tab] 1 each PO DAILY 09/14/18 Multivitamin [Once Daily] 1 each PO DAILY 09/14/18 Naproxen [Naprosyn] 500 mg PO BID 09/14/18 Aspirin [Aspirin, Baby] 81 mg PO DAILY@0800 #30 tab.chew 09/15/18 Atorvastatin Calcium 40 mg PO QHS #30 tablet 09/15/18 Following Prescrptions Were Given to Patient: Aspirin [Aspirin, Baby] 81 mg PO DAILY@0800 #30 tab.chew Atorvastatin Calcium 40 mg PO QHS #30 tablet Primary Care Physician: Ang Vickers MD [Primary Care Provider] - Please follow up with your Primary Care Physician in: 1 Week Please Follow Up With: Rancho Brown MD When: 4 weeks Please Follow Up With: Guero Ray MD When: Next week, as soon as possible Disposition: Home Minutes spent on discharge:: 35 Patient Condition:: Stable Medical Necessity - Tobacco Use Smoking Status: Former smoker Tobacco Use: Non-smoker Meaningful Use Info Meaningful Use Diagnoses (Choose all that apply): None applicable <Donna Fowler - Last Filed: 09/16/18 11:47> Discharge Date and Diagnosis - Secondary Discharge Diagnosis Chronic Problems Hypertension (Chronic) Hyperlipidemia (Chronic) BPH associated with nocturia (Chronic) Hospital Course and Treatment Summary of Care Provided: This patient was seen in conjunction with Lisa Howard NP. I have independently interviewed and examined the patient and reviewed pertinent historical, laboratory, and other data. Please refer to her note for patient's p resentation, findings, and recommendations. In summary, The patient is a 82 year old M past medical history of hypertension, hyperlipidemia, BPH who comes in with a 3-day history of dizziness that is worse with movement resulting in problems with his balance. Patient was admitted to the telemetry bed, monitored on telemetry with no acute events. Neurology was consulted. MRI of the brain as well as MRA of the head and neck was essential negative. It did show some incidental distal left vertebral artery stenosis. Patient continued to be mildly dizzy. Was seen by PT and OT. Patient was felt to have possible BPPV. CVA was ruled out. He was given a prescription for follow-up with outpatient vestibular therapy. He was discharged on aspirin and statin. Subjective: The day of discharge, patient was seen and examined. He feels much improved. No acute events overnight. No acute events on telemetry. He has very mild dizziness on working with physical therapy. Discussed patient's negative MRI results in detail with him and his family. All questions were answered. Objective: Physical Exam General: Alert, Oriented x3, Cooperative HEENT: Atraumatic, PERRLA, EOMI, Normocephalic Neck: Supple, No JVD, Negative Carotid Bruits Lungs: Clear to auscultation, Normal air movement Cardiovascular: Regular rate, No murmurs Abdomen: Bowel Sounds Present, Soft, Non Tender Extremities: No edema, Capillary Refill Less than 3 Seconds Skin: No rashes, No breakdown Musculoskeletal: No Tenderness to Palpation of Joints or Extremities Neurological: Cranial nerves II-XII grossly intact Psych/Mental Status: Normal Affect, Appropriate - Physical Exam Vital Signs Temp Pulse Resp BP Pulse Ox 98.4 F 56 L 12 155/88 H 97 09/15/18 08:33 09/15/18 08:33 09/15/18 08:33 09/15/18 08:33 09/15/18 08:33 Oxygen Flow Rate (L/min) 2 Oxygen Delivery Method Room Air Weight: 93 kg Body Mass Index (BMI) 29.3 Intake and Output for Last 24 Hours 09/14/18 09/15/18 09/16/18 23:59 23:59 23:59 Intake Total 400 / 400 120 / 120 Output Total 450 / 450 Balance 400 / 400 -330 / -330 Code Visit OBSV E&M: 56613 Observation care discharge
--- NOTE | 2018-09-26 10:18 | CASEMGMT ---
Per Dr. Ricardo, pt/family called the hospitalist office with concerns that they cannot get into to see Neurology until December. Dr. Ricardo requested that this RN CM call Neuro office and attempt to get sooner appt for pt at this time. Call to [facility], their PEDIATRIC CRITICAL CARE NURSE recently left and they have a new one hired but they do not have her schedule yet. She states that once they have her schedule they will be able to get pt in to see them in the next 4 weeks but states that they cannot schedule a sooner appt yet for pt at this time. As of now, she states they have pt down for January 02, 2019 but that they will call pt and schedule sooner appt. This RN CM spoke with pt at this time and updated on all, voices understanding. This RN CM did advise pt to keep calling if he does not hear from [facility], pt voices understanding. Dr. Ricardo updated at this time, voices understanding. Gay HUSAIN CM
--- OUTSIDE RECORDS SUMMARY | 2018-11-18 16:07 | XMS RPT_ITS ---
:1935 Author Organization OHIP Care Team Providers Name Role Phone ANG SMITH Referring Unavailable ANG SMITH Attending Unavailable ANG SMITH Referring Unavailable ANG SMITH Referring Unavailable ANG SMITH Attending Unavailable ANG SMITH Attending Unavailable Ang Smith Primary Care Unavailable Paintsil, Dingess Admitting Unavailable Paintsil, Dingess Attending Unavailable Lindy Brownh S. Consulting Unavailable Paintsil, Dingess Admitting Unavailable Jarrodtsil, Dingess Attending Unavailable Ang Smith Primary Care Unavailable Sean Brownnath S. Consulting Unavailable Paintsil, Dingess Consulting Unavailable Paintsil, Dingess Admitting Unavailable DAYRON DriverC Attending Unavailable Ang Smith Primary Care Unavailable Rancho Brown Consulting Unavailable Paintsil, Dingess Consulting Unavailable JANA Driver Attending Unavailable Ang Smith Primary Care Unavailable JANA Driver Referring Unavailable PROBLEMS PROBLEMS DATE TYPE CONDITION / CODE ATTENDING STATUS SOURCE 09/12/2018 Active Unknown / SARAH, Javid [facility] UNK(Unknown) SUSANA [facility] Repository 12/05/2017 Active Other rn long term care NA Active [facility] (current) drug [facility] therapy / Repository Z79.899(ICD-10) PROCEDURES PROCEDURES No Procedure Records FoundRESULTS RESULTS CONSULTATION Observed: 09/21/2018 Status: F Source: [place] 1:49 PM [facility] REPOSITORY [facility] Medical Records Department [address] [place] [address] Consultation 09/14/18 1455 MR#: [id number] Acct: [id number] Name: ELYSE MUNIZ Rep #: [id number] : 1935 82 From: Rancho Brown MD PCP: Ang Smith MD Status: DIS IN Y [facility] Problem List (1) Dizziness Status: Acute Reason for Consult Date of Consultation: 09/14/18 Reason for Consultation: Dizziness History of Present Illness: The patient is a 82 year old M with PMH HTN, HLD, BPH admitted with dizziness. Per patient he started feeling dizzy since last night, woke up this morning and later again felt her was dizzy and light headed, felt had balance issues, was wobbly and had to hold to on to things. Denies any room spinning sensation. Denies any focal motor weakness, sensory loss, PERALTA, visual disturbances or speech disturbances, He was recently started on Baclofen for his hip issues and that is the only new medication he is taking per patient. Denies any ear ache or tinnitus. Dizziness occurs while walking per patient. Lives with , denies any frequent falls, dose not use cane or walker to ambulate, does drive and does not need any assistance for his ADLs. CT head done on admission did not report to show anything acute. [] Past Medical History Past Medical History (Chronic Problems): Chronic Problems Hypertension (Chronic) Allergies No Known Allergies Allergy (Verified 09/14/18 08:45) Home Medications: Ambulatory Orders Medication Instructions Recorded Baclofen 20 mg PO TID PRN PRN 09/14/18 Finasteride 5 mg PO DAILY 09/14/18 Lisinopril/Hydrochlorothiazide 1 each PO DAILY 09/14/18 Lives: Spouse/ Significant Other Smoking Status: Former smoker Alcohol: None Drugs: None Review of Systems Constitutional: Reports: - - complete ROS negative except as documented in HPI Patient Problems: Active and Suspected Problems TIA (transient ischemic attack) (Acute) Hyperlipidemia (Acute) Dizziness (Acute) - Physical Exam General: Alert HEENT: Normocephalic Neck: Supple Lungs: Clear to auscultation Cardiovascular: Normal S1, Normal S2 Abdomen: Bowel Sounds Present Extremities: No cyanosis Neurological: - - consious, awake, AoA x3, CN 2-12 grossly intact, power 5/5 all 4 extremities, no sensory loss, no cerebellar signs, Reflexes + B/L B/S/T/k/A, gait deferred, No nystagmus, no NR Psych/Mental Status: Normal Affect Vital Signs Temp Pulse Resp BP Pulse Ox 97.7 F L 51 L 16 157/78 H 95 09/14/18 12:09 09/14/18 12:09 09/14/18 12:09 09/14/18 12:09 09/14/18 12:09 Oxygen Flow Rate (L/min) 2 Oxygen Delivery Method Room Air Weight: 92.7 kg Body Mass Index (BMI) 29.3 Laboratory Tests Past 24 Hrs WBC 5.2 RBC 4.27 L WBC RBC Hgb Hct MCV Assessment/Plan All Active Problems TIA (transient ischemic attack) (Acute) Hyperlipidemia (Acute) Dizziness (Acute) The patient is a 82 year old M with PMH HTN, HLD, BPH admitted with dizziness. Per patient he started feeling dizzy since last night, woke up this morning and later again felt her was dizzy and light headed, felt had balance issues, was wobbly and had to hold to on to things. Denies any room spinning sensation. Denies any focal motor weakness, sensory loss, PERALTA, visual disturbances or speech disturbances, He was recently started on Baclofen for his hip issues and that is the only new medication he is taking per patient. Denies any ear ache or tinnitus. Dizziness occurs while walking per patient. Lives with , denies any frequent falls, dose not use cane or walker to ambulate, does drive and does not need any assistance for his ADLs. CT head done on admission did not report to show anything acute. Impression Dizziness- R/O posterior circulation stroke vs peripheral etiology Less likely to be TIA Plan -On ASA -Check MRI brain w/o contrast -Check MRA head/neck -Check TTE/LDL/ and Hba1c -Frequent neuro checks -Stroke risk factors discussed and stroke education provided -If neuroimaging negative then would consider vestibular therapy and ENT consult -Orthostatic vitals -Fall precautions -GI/DVT prophylaxis -PT/OT and ST -Further medical management per hospitalist team -Neurology follow up in 4 weeks as outpatient -Please call with questions if any -Thank you for allowing us to participate in patient's are and management Code Visit Inpatient E AND M: [id number] Init Hosp L3 09/21/18 1349 <Electronically signed by Rancho Brown MD> Date Rancho Brown MD Cosigner Signature (if applicable): Date CC: Latoya Brown MD; Ang Smith MD Signed INITAL EVALUATION (1) Observed: 09/19/2018 Status: F Source: [place] - PT 7:09 AM [facility] REPOSITORY [facility] [place] [address] / REHABILITATION SERVICES INITIAL EVALUATION MR#: [id number] Acct: [id number] Name: ELYSE MUNIZ Rep #: [id number] : 1935 82 From: Guero De Los Santos DPT, OCS, CSCS Referring DrWanda: JANA Howard Status: REG RCR Insurance: MEDICARE PART A B COMMERCIAL OTHER Patient's Visit Information ELYSE MUNIZ is a 82 year old M referred to Physical Therapy by JANA Driver with a diagnosis of BPPV. Date of Evaluation: 09/18/18 Physical Therapist: Guero De Los Santos, DPT, OCS, CSCS - Visit Plan Plan: No PT required at this point. No vestibular cause to dizzyness noted, possibly medication induced as he started muscle relaxers prior to onset - Subjective Findings: One week ago got LBP and went to doctor to get muscle relaxers, felt woozy getting up Monday night. alexia went out and had busy day, during the night got worse woozyness/unsteadyness. Went to ER via squad and had HTN. 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 Therapy girls saw him and did Isabella maneuver. Sent for therapy here adn will see ENT next week. Will f/u with his family doctor. Currently feels much better. Used cane for the weekend but has gotten rid of it. 90% BETTER. Steady enough to get around, no falls. Sleeping OK. No spinnign, just unsteady. Activities are pretty normal. says he acannot drive yet. - Objective Walks well adn trasnfers without UE today. C/s AROM is WFL and without symptoms today. - B hallpike. - roll test. Oculomotor is unremarkable: - skew eye deviation. convergence looks OK. pursuit,saccades adn VOR are normal and asymptomatic. - head thrust. Balance is about normal for age or well above normal today on FGA. - Balance Scores Functional Gait Assessment Score: 28 % Disability: 6.6700 CATSIB Score (Max score 120 seconds): 98 - Rehabilitation Potential Physical Therapy Diagnosis: No vestibular cause to dizzyness noted, possibly medication induced as he started muscle relaxers prior to onset - Anticipated Interventions Thank you for the opportunity to evaluate your patient. For Medicare and Medicare HMO plans, please review the plan of care and approve it. It will need to be FAXED BACK to us at [phone] for Medicare purposes. For Medicare only, by signing this I certify the plan of care. Please let me know if there are questions or concerns regarding this plan of care. Physician Signature: Date: <Electronically signed by Guero De Los Santos DPT, OCS, CSCS> 09/19/18 0709 CC: JANA Howard; Ang Smith MD EBG Signed 12 LEAD ELECTROCARDIOGRAM Observed: 09/17/2018 Status: F Source: [place] 9:42 AM [facility] REPOSITORY [facility] Cardiovascular Services [address] [place] [address] 12 Lead EKG 09/14/18 0901 MR#: [id number] Acct: [id number] Name: ELYSE MUNIZ Rep #: [id number] : 1935 82 From: Newton Palmer MD Attending Dr: Donna Fowler MD Status: DIS IN Ordering Dr: Marck Ho MD Date: 09/14/18 Location: [facility] Sex: M C Admitted: 09/14/18 Test Reason : DIZZINESS Blood Pressure : / mmHG Vent. Rate : 051 BPM Atrial Rate : 051 BPM P-R Int : 176 ms QRS Dur : 090 ms QT Int : 392 ms P-R-T Axes : 019 -02 037 degrees QTc Int : 361 ms Sinus bradycardia Otherwise normal ECG Confirmed by ALEC WORKMAN, NEWTON ([id number]), associate editor NATHALIE DOMINGUEZ ([id number]) on 09/17/2018 9:41:48 AM Referred By: SHANON Confirmed By:NEWTON PALMER MD 09/17/18 0941 Date Newton Palmer MD CC: Donna Fowler MD; Marck Ho MD; nAg Smith MD Signed DISCHARGE SUMMARY Observed: 09/16/2018 Status: F Source: [place] 11:48 AM [facility] Medical Records Department [address] [place] [address] Discharge Summary 09/15/18 1408 MR#: [id number] Acct: [id number] Name: ELYSE MUNIZ Rep #: [id number] : 1935 82 From: Lisa BATES PCP: Ang Smith MD Status: DIS IN Y Location: [place] [address] <Lisa Howard - Last Filed: 09/15/18 14:14> Discharge Date and Diagnosis Date of Admission: 09/14/18 Date of Discharge: 09/15/18 - Primary Discharge Diagnosis 1. Suspected BPPV, CVA ruled out 2. Distal left vertebral artery stenosis 3. Hypertension 4. Hyperlipidemia 5. BPH - Secondary Discharge Diagnosis Chronic Problems Hypertension (Chronic) Hyperlipidemia (Chronic) BPH associated with nocturia (Chronic) Hospital Course and Treatment Imaging Results: Diagnostic Data Brain CT 09/14/18 08:58 IMPRESSION: Chronic involutional changes of the brain. Sinusitis as described. Electronically Signed: Martin Chavez MD at 9:34 EST Tel [phone], Service support , Chest X-Ray 09/14/18 09:25 IMPRESSION: Normal x-ray examination of the chest. Electronically Signed: Martin Chavez MD at 9:38 EST Tel [phone], Service support , Brain MRI 09/14/18 10:56 IMPRESSION: Involutional changes of the brain, as described above. Electronically Signed: Ricardo Copeland MD at 16:15 EST , Service support , Head MRA 09/14/18 10:56 IMPRESSION: Moderate stenosis distal vertebral artery on the left. Tortuous basilar artery. Otherwise unremarkable exam. Electronically Signed: Ricardo Copeland MD at 16:23 EST , Service support , Neck MRA 09/14/18 10:56 IMPRESSION: Severely narrowed distal left vertebral artery otherwise unremarkable exam Electronically Signed: Ricardo Copeland MD at 16:59 EST , Service support , Dr. Brown- Neurology Operations: None Procedures: 2-D Echocardiogram Summary of Care Provided: The patient is a 82 year old M admitted 09/14/2018 due to dizziness times 3 days. 1. Suspected BPPV, CVA ruled out-MRI of brain without acute infarct. Echocardiogram shows an EF of 60%, stage I diastolic dysfunction. Dizziness reproducible. Neurology suspects peripheral etiology. Patient referred to ENT at discharge for vestibular therapy. Orthostatic vitals negative. Follow-up with neurology in 4 weeks. 2. Distal left vertebral artery stenosis-MRA of neck showed severely narrowed distal left vertebral artery. Patient's statin regimen changed to atorvastatin 40 mg p.o. nightly. 3. Hypertension-elevated on admission, improved. Continue home lisinopril/HCTZ regimen. 4. Hyperlipidemia-continue statin. Changed to atorvastatin as noted above. 5. BPH-continue finasteride regimen. General: Alert, Oriented x3, Cooperative, no acute distress HEENT: Atraumatic, PERRLA, EOMI, Normocephalic Neck: Supple, No JVD, Negative Carotid Bruits Lungs: Clear to auscultation, Normal air movement Cardiovascular: Regular rate, No murmurs Abdomen: Bowel Sounds Present, Soft, Non Tender Extremities: No edema, Capillary Refill Less than 3 Seconds Skin: No rashes, No breakdown Musculoskeletal: No Tenderness to Palpation of Joints or Extremities Neurological: Cranial nerves II-XII grossly intact, neuro grossly intact Psych/Mental Status: Normal Affect, Appropriate Patient seen and examined prior to discharge. Physical assessment as noted above. Patient is stable for discharge with follow up recommendations as noted above. This patient was seen by JANA Driver under the supervision of Dr. Fowler. - Physical Exam Vital Signs Temp Pulse Resp BP Pulse Ox 98.4 F 56 L 12 155/88 H 97 09/15/18 08:33 09/15/18 08:33 09/15/18 08:33 09/15/18 08:33 09/15/18 08:33 Oxygen Flow Rate (L/min) 2 Oxygen Delivery Method Room Air Weight: 205 lb 0.478 oz Body Mass Index (BMI) 29.3 Intake and Output for Last 24 Hours Intake Total 400 / 400 120 / 120 Output Total 450 / 450 Balance 400 / 400 -330 / -330 Laboratory Tests Past 24 Hrs Sodium 139 Discharge Diet: Low fat/ Low Cholesterol Discharge Activity: Return to Normal Activity Call your doctor if you observe: Numbness or Tingling, Shortness of breath, Dizziness, Fainting spells Home Medications: Medications to take at Discharge Finasteride 5 mg PO DAILY 09/14/18 Lisinopril/Hydrochlorothiazide [Lisinopril-Hctz 20-12.5 mg Tab] 1 each PO DAILY 09/14/18 Multivitamin [Once Daily] 1 each PO DAILY 09/14/18 Naproxen [Naprosyn] 500 mg PO BID 09/14/18 Aspirin [Aspirin, Baby] 81 mg PO DAILY@0800 #30 tab.chew 09/15/18 Atorvastatin Calcium 40 mg PO QHS #30 tablet 09/15/18 Following Prescrptions Were Given to Patient: Aspirin [Aspirin, Baby] 81 mg PO DAILY@0800 #30 tab.chew Atorvastatin Calcium 40 mg PO QHS #30 tablet Primary Care Physician: Ang Smith MD [Primary Care Provider] - Please follow up with your Primary Care Physician in: 1 Week Please Follow Up With: Rancho Brown MD When: 4 weeks Please Follow Up With: Guero Ray MD When: Next week, as soon as possible Disposition: Home Minutes spent on discharge:: 35 Patient Condition:: Stable Medical Necessity - Tobacco Use Smoking Status: Former smoker Tobacco Use: Non-smoker Meaningful Use Info Meaningful Use Diagnoses (Choose all that apply): None applicable <Paintsil,Dingess - Last Filed: 09/16/18 11:47> Discharge Date and Diagnosis - Secondary Discharge Diagnosis Chronic Problems Hypertension (Chronic) Hyperlipidemia (Chronic) BPH associated with nocturia (Chronic) Hospital Course and Treatment Summary of Care Provided: This patient was seen in conjunction with Lisa Howard NP. I have independently interviewed and examined the patient and reviewed pertinent historical, laboratory, and other data. Please refer to her note for patient's presentation, findings, and recommendations. In summary, The patient is a 82 year old M past medical history of hypertension, hyperlipidemia, BPH who comes in with a 3-day history of dizziness that is worse with movement resulting in problems with his balance. Patient was admitted to the telemetry bed, monitored on telemetry with no acute events. Neurology was consulted. MRI of the brain as well as MRA of the head and neck was essential negative. It did show some incidental distal left vertebral artery stenosis. Patient continued to be mildly dizzy. Was seen by PT and OT. Patient was felt to have possible BPPV. CVA was ruled out. He was given a prescription for follow-up with outpatient vestibular therapy. He was discharged on aspirin and statin. Subjective: The day of discharge, patient was seen and examined. He feels much improved. No acute events overnight. No acute events on telemetry. He has very mild dizziness on working with physical therapy. Discussed patient's negative MRI results in detail with him and his family. All questions were answered. Objective: Physical Exam General: Alert, Oriented x3, Cooperative HEENT: Atraumatic, PERRLA, EOMI, Normocephalic Neck: Supple, No JVD, Negative Carotid Bruits Lungs: Clear to auscultation, Normal air movement Cardiovascular: Regular rate, No murmurs Abdomen: Bowel Sounds Present, Soft, Non Tender Extremities: No edema, Capillary Refill Less than 3 Seconds Skin: No rashes, No breakdown Musculoskeletal: No Tenderness to Palpation of Joints or Extremities Neurological: Cranial nerves II-XII grossly intact Psych/Mental Status: Normal Affect, Appropriate - Physical Exam Vital Signs Temp Pulse Resp BP Pulse Ox 98.4 F 56 L 12 155/88 H 97 09/15/18 08:33 09/15/18 08:33 09/15/18 08:33 09/15/18 08:33 09/15/18 08:33 Oxygen Flow Rate (L/min) 2 Oxygen Delivery Method Room Air Weight: 93 kg Body Mass Index (BMI) 29.3 Intake and Output for Last 24 Hours Intake Total 400 / 400 120 / 120 Output Total 450 / 450 Balance 400 / 400 -330 / -330 Code Visit OBSV E AND M: [id number] Observation care discharge 09/15/18 1834 <Electronically signed by Lisa BATES> Date Lisa Howard HORSE RACING ANALYST-C 09/16/18 1148<Electronically signed by Donna Fowler MD> Cosigner Signature (if applicable): Date Donna Fowler MD CC: HORSE RACING ANALYSTUnruly Howard; Donna Fowler MD; Guero Ray MD; Ang Smith MD Signed DISCHARGE INSTRUCTION Observed: 09/15/2018 Status: F Source: [place] 10:58 [facility] REPOSITORY [facility] Medical Records Department [address] [place] [address] Instructions for Home/Discharge Instructions 09/15/18 1050 MR#: [id number] Acct: [id number] Name: ELYSE MUNIZ Eliane Rep #: [id number] : 1935 82 From: Lisa BATES PCP: Ang Smith MD Status: ADM IN - Discharge Diagnoses Current Active Problems: Current Active and Chronic Problems Hypertension (Chronic) Hyperlipidemia (Chronic) Dizziness (Acute) BPH associated with nocturia (Chronic) You will use the following diet at home:: Cardiac Discharge Activity: Return to Normal Activity Call your doctor if you observe: Numbness or Tingling, Shortness of breath, Dizziness, Fainting spells Allergies/Adverse Reactions: Allergies No Known Allergies Allergy (Verified 09/14/18 08:45) Medications to take at Discharge Finasteride 5 mg PO DAILY 09/14/18 Lisinopril/Hydrochlorothiazide [Lisinopril-Hctz 20-12.5 mg Tab] 1 each PO DAILY 09/14/18 Multivitamin [Once Daily] 1 each PO DAILY 09/14/18 Naproxen [Naprosyn] 500 mg PO BID 09/14/18 Aspirin [Aspirin, Baby] 81 mg PO DAILY@0800 #30 tab.chew 09/15/18 Atorvastatin Calcium 40 mg PO QHS #30 tablet 09/15/18 The following prescriptions were given: Aspirin [Aspirin, Baby] 81 mg PO DAILY@0800 #30 tab.chew Atorvastatin Calcium 40 mg PO QHS #30 tablet Primary Care Physician: Ang Smith MD [Primary Care Provider] - Please follow up with your Primary Care Physician in: 1 Week Test Results: Test results from this visit will be discussed in further detail at your follow-up appointment, if applicable. Please Follow Up With: Rancho Brown MD When: 4 weeks Please Follow Up With: Guero Ray MD - ENT, When: Next week, as soon as possible Proposed Discharge Date: 09/15/18 09/15/18 1058 <Electronically signed by Lisa PADGETTC> Date Lisa BATES CC: Latoya Brown MD; Ang Smith MD Signed BASIC METABOLIC Collected: 09/15/2018 Status: F Source: [place] PROFILE (BMP) 6:05 AM [facility] REPOSITORY TYPE CODE TESTS RESULT OUT OF RANGE REFERENCE UNITS LAB L501.0100 74-106 mg/dL Normal GLU 96 Result Comment: Please note revised GLUCOSE reference range effective 2017. LAB L501.1000 7-18 mg/dL Normal BUN 14 LAB L501.1100 0.70-1.30 mg/dL Normal CREAT,SERUM 0.99 Result Comment: The validity of the calculated GFR AND GFRAA in patients over 70 years has not been determined. Clinical correlation is essential. LAB L501.1110 >60 mL/min Normal EST GFR 78 Result Comment: Non- GFR Calc LAB L501.1115 >60 mL/min Normal EST GFR - AA 94 Result Comment: GFR Calc LAB L501.1255 ml/min Normal Estimated CRCL 61.45 LAB L501.1300 10-20 RATIO Normal BUN/CRE 14.2 LAB L501.2200 8.5-10 mg/dL Normal .1 CA 8.9 LAB L501.5300 136-14 mmol/L Normal 5 NA 139 LAB L501.5600 3.5-5. mmol/L Normal 1 K 4.2 LAB L501.5900 98-107 mmol/L Normal CL 106 LAB L501.6100 21.0-3 mmol/L Normal 2.0 CO2 29.0 LAB L501.6200 5-15 Low GAP 4 Performed By: #### L500.2500, L500.4100 #### [facility] [address] [place], [address] LIPID PROFILE Collected: 09/15/2018 Status: F Source: [place] 6:05 AM [facility] REPOSITORY TYPE CODE TESTS RESULT OUT OF RANGE REFERENCE UNITS LAB L501.4900 200 mg/dL Normal CHOL 148 Result Comment: <200 mg/dL Desirable 200-240 mg/dL Borderline >240 mg/dL High Risk LAB L501.5000 mg/dL Normal TRIG 113 Result Comment: The drugs N-Acetylcysteine and Metamizole may falsely depress this assay. Serum Triglycerides Reference Interval Normal <150 mg/dL Borderline high 150 - 199 mg/dL High 200 - 499 mg/dL Very High > or = 500 mg/dL LAB L501.6400 mg/dL Normal HDL 52 Result Comment: The drugs N-Acetylcysteine and Metamizole may falsely depress this assay. Reference Range HDL <40 mg/dL Low HDL Cholesterol HDL >or= 60 mg/dL High HDL Cholesterol LAB L501.6500 0-130 mg/dL Normal LDL 73 LAB L501.6600 5-40 mg/dL Normal VLDL 23 Performed By: #### L500.2500, L500.4100 #### [facility] [address] [facility] [place], [address] HISTORY AND PHYSICAL Observed: 09/14/2018 Status: F Source: [place] EXAM 4:56 PM [facility] REPOSITORY [facility] Medical Records Department [address] [place] [address] History and Physical 09/14/18 1034 MR#: [id number] Acct: [id number] Name: ELYSE MUNIZ Rep #: [id number] : 1935 82 From: Donna Fowler MD PCP: Ang Smith MD Status: ADM IN Y Location: [place] [address] Problem List (1) TIA (transient ischemic attack) Status: Acute (2) Hypertension Status: Chronic Qualifiers: Hypertension type: essential hypertension Qualified Code(s): I10 - Essential (primary) hypertension (3) Hyperlipidemia Status: Chronic Qualifiers: Hyperlipidemia type: unspecified Qualified Code(s): E78.5 - Hyperlipidemia, unspecified (4) BPH associated with nocturia Status: Chronic History of Present Illness Date of Admission: 09/14/18 Chief Complaint: Dizziness - 3 days The patient is a 82 year old M with past medical history of hypertension, hyperlipidemia, BPH who comes in with complaints of dizziness ongoing for 3 days. Since his dizziness started 3 nights ago, worse with movement, had problems with his balance. [place] as if he was drunk. Denied any room spinning. Did not have any focal weakness or numbness. Lasted for a few minutes and went away. He had it again a care in the next day. And subsequently on the day of admission. His called the EMS because she was worried that if he falls she will not be able to get him up. At time of examination, patient denied any complaints, says her dizziness has improved. Feels this gone down because he is not moving much. Denied any nausea or dizziness. Denied having any episodes like this before. Denied any recent upper respiratory infection or diarrhea. Denied any ringing in his ears. Vitals in the ED showed a BP of 90 8.1F, heart rate 55, blood pressure 177/73 with respiratory rate 16, SPO2 95% on room air. His admitting blood work showed RBC count 5.2, hemoglobin 13.8, platelet count 185, INR 1.0, APTT 31.8, sodium 140, potassium 4.0, chloride 105, bicarbonate 28, BUN 14, creatinine 0.94. HgBA1c 5.7. Troponins x2-, TSH 1.26. Check CT scan of the brain was negative, chest x-ray was unremarkable. Past Medical History Past Medical History (Chronic Problems): Chronic Problems Hypertension (Chronic) Hyperlipidemia (Chronic) BPH associated with nocturia (Chronic) Allergies No Known Allergies Allergy (Verified 09/14/18 08:45) Home Medications: Ambulatory Orders Medication Instructions Recorded Baclofen 20 mg PO TID PRN PRN 09/14/18 Finasteride 5 mg PO DAILY 09/14/18 Lisinopril/Hydrochlorothiazide 1 each PO DAILY 09/14/18 Surgical History: rotator cuff repair - right, total hip arthroplasty - left, total knee arthroplasty - right, tonsillectomy Psychiatric History: No pertinent psych hx Lives: Spouse/ Significant Other Smoking Status: Former smoker Tobacco Use: Non-smoker Alcohol: Heavy Drugs: None - *Family History Maternal History Items: No pertinent history Paternal History Items: Heart Disease - CHF Review of Systems Constitutional: Denies: Anorexia, Chills, Fever, Malaise, Weakness, Weight Change Eyes: Denies: Blurred vision, Cataracts, Conjunctivae Inflammation, Pain, Redness, Vision Change HEENT: Denies: Difficulty Hearing, Difficulty Swallowing, Head Aches, Hearing Changes, Sinus Congestion, Sinus Drainage Cardiovascular: Reports: Light Headedness. Denies: Chest Pain, Claudication, Orthopnea, Palpitations Respiratory: Denies: Cough, Hemoptysis, Shortness of breath at rest, Shortness of breath upon exertion, Sputum production Gastrointestinal: Denies: Abdominal Pain, Constipation, Hematemesis, Hematochezia, Nausea, Vomiting Genitourinary: Denies: Dysuria Musculoskeletal: Denies: Joint Pain, Joint stiffness, Joint swelling, Joint Tenderness Skin: Denies: Rash, Wounds Neurological: Reports: Balance problems. Denies: Focal weakness, Numbness, Tingling Psychiatric: Denies: Anxiety, Depression, Homicidal Ideations, Suicidal Ideations Hematologic/ Lymphatic: Denies: Easy Bruising, Easy Bleeding VTE Information - Inpt Only VTE Present on Admission: No VTE Pharm Prophylaxis ordered?: Yes Patient Problems: Active and Suspected Problems TIA (transient ischemic attack) (Acute) Dizziness (Acute) - Physical Exam General: Alert, Oriented x3, Cooperative HEENT: Atraumatic, PERRLA, EOMI, Normocephalic Neck: Supple, No JVD, Negative Carotid Bruits Lungs: Clear to auscultation, Normal air movement Cardiovascular: Regular rate, No murmurs Abdomen: Bowel Sounds Present, Soft, Non Tender Extremities: No edema, Capillary Refill Less than 3 Seconds Skin: No rashes, No breakdown Musculoskeletal: No Tenderness to Palpation of Joints or Extremities Neurological: Cranial nerves II-XII grossly intact Psych/Mental Status: Normal Affect, Appropriate Vital Signs Temp Pulse Resp BP Pulse Ox 98.1 F 52 L 16 158/75 H 95 09/14/18 08:38 09/14/18 08:57 09/14/18 08:38 09/14/18 08:57 09/14/18 08:38 Oxygen Flow Rate (L/min) 2 Oxygen Delivery Method Nasal Cannula Weight: 96.5 kg Body Mass Index (BMI) 30.5 Laboratory Tests Past 24 Hrs Assessment/Plan All Active Problems TIA (transient ischemic attack) (Acute) Dizziness (Acute) 82 year old M with past medical history of hypertension, hyperlipidemia, BPH who comes in with complaints of dizziness ongoing for 3 days. Since his dizziness started 3 nights ago, worse with movement, had problems with his balance. [place] as if he was drunk. Denied any room spinning. Did not have any focal weakness or numbness. 1. Dizziness, suspicious for possible posterior circulation CVA vs BPPV, in a patient with multiple risk factors Plan: Admit to PCU, keep on a monitored bed, monitor on telemetry, neurology consult, MRI of the brain, MRA of the head and neck, aspirin 81 mg p.o. daily, monitor. Protocol with NIH SS, 2D echo, PT, OT, ST consults 2. Hypertension, uncontrolled, continue home regimen, her vitals closely 3. Hyperlipidemia, on statin 4. BPH, on finasteride 5. DVT prophylaxis with Lovenox Sc Code Visit OBSV E AND M: [id number] Initial observation care L3 09/14/18 1656 <Electronically signed by Donna Fowler MD> Date Donna Fowler MD Cosigner Signature: Date (if applicable) CC: Donna Fowler MD; Ang Smith MD Signed TROPONIN-I Collected: 09/14/2018 Status: F Source: [place] 3:50 PM [facility] REPOSITORY Order Comment: 'TROP' Serial specimen #1, #2 or #3: 3 TYPE CODE TESTS RESULT OUT OF RANGE REFERENCE UNITS LAB L501.4010 <0.045 ng/mL Normal 0.017 TROPONIN-I Result Comment: TROPONIN-I EXPECTED VALUES <0.045 Negative 0.045 - 0.590 Consistent with Cardiac Damage > OR = 0.600 Critical Value Not every elevated troponin is indicative of CO. These values should be used with clinical judgement in examining the patient's clinical picture for diagnosis. To establish a diagnosis of CO versus myocardial injury, there must be a demonstrated rise and/or fall in the troponin values, in addition to ischemic symptoms, EKG changes, new regional wall motion abnormality, and/or angiographical evidence. PLEASE NOTE: REFERENCE RANGES EDITED 18 Performed By: #### L501.4010 #### [facility] [address] [facility] [place], [address] EMERGENCY DEPARTMENT Observed: 09/14/2018 Status: F Source: [place] SUMMARY 3:45 PM [facility] REPOSITORY [facility] Medical Records Department [address] [facility] [place] [address] Emergency Department Summary 09/14/18 1008 MR#: [id number] Acct: [id number] Name: ELYSE MUNIZ Rep #: [id number] : 1935 82 From: Marck Ho MD PCP: Ang Smith MD Status: ADM IN - ER Visit Summary Date of Service: 09/14/18 Chief Complaint: Lightheaded History of Present Illness: The patient is a 82 M with lightheadedness that started Monday evening. He felt off balance when he stood up, and he has to hold onto something when he walks. Symptoms started Monday evening and then were worse yesterday and then even worse this morning. He attributed it to starting a muscle relaxer that he took Monday and Monday and . He did not take any today, but his symptoms persisted. He called 911 is having trouble getting around. He never had this before. He denies any other associated symptoms like vision changes, weakness, numbness, speech changes, or facial droop. No chest pain. No vertigo symptoms. No hearing changes or ear symptoms. No fevers or recent illness. No neck pain or trauma. Physical Examination: Patient is afebrile. Blood pressure 177/73 and heart rate 55. Otherwise vitals normal. He is alert and oriented and in no acute distress. Head and neck are atraumatic. Neck is nontender. Good range of motion. Cranial nerves grossly intact. Heart regular. Lungs clear. Abdomen soft. Moves all extremities. Good strength and sensation. NIH stroke scale is 0. Patient exhibits ataxia when ambulating. Test Results: EKG showed sinus rhythm at a rate of 51. CBC, BMP, coags, troponin normal. Chest x-ray and CT brain unremarkable except for chronic changes and sinusitis on the CT. Emergency Department Course and Treatment: Patient presents with ataxia. No vertigo symptoms. Normal NIH. I was concerned for stroke. He presents with bradycardia which is new for him. I also considered that this could be related to his medications, but I thought this might be less likely because he stopped taking his muscle relaxer yesterday. His workup was unremarkable except for some sinus bradycardia on the EKG and monitor. He had chronic CT brain changes. He does have objective ataxia. He is doing well when he is sitting down, but he has difficulty ambulating. I called the hospitalist for admission for further care. Treatment Plan: As above Disposition: Admission Impression: 1. Ataxia 2. Bradycardia This note was generated with [employer] dictation software. It may contain incorrect words, spelling, and punctuation that were not noted in review of the chart prior to signing ED Disposition - Plan for ED Patient: Chief Complaint: Dizziness Referrals: Ang Smith MD [Primary Care Provider] - What to do if you have Problems For any increased pain, shortness of breath, bleeding, nausea or vomiting, chest pain, or any unexpected problems, contact your Primary Care Provider. Call [facility] ([phone]) or report to the closest Emergency Room. Call 911 if necessary. 09/14/18 1545 <Electronically signed by Marck Ho MD> Date Marck Ho MD Cosigner Signature (If Indicated): Date CC: Ang Smith MD ECHOCARDIOGRAM COMPLETE Observed: 09/14/2018 Status: F Source: [place] 2:50 PM [facility] REPOSITORY [facility] Cardiovascular Services [address] [place] [address] Echo Complete 09/14/18 1340 MR#: [id number] Acct: [id number] Name: ELYSE MUNIZ Rep #: [id number] : 1935 82 From: Newton Palmer MD Attending Dr: Donna Fowler MD Status: ADM IN Ordering Dr: Donna Fowler MD Date: 09/14/18 Location: [facility] Sex: M C Admitted: 09/14/18 Reason For Study: TIA/CVA Procedure This was a 2D Doppler, Color Flow transthoracic echocardiogram. Exam performed portable in patient room. Left Ventricle Normal LV size. Left ventricular systolic function is normal. The estimated ejection fraction is 60 %. Stage 1 diastolic dysfunction. No regional wall motion abnormalities noted. Right Ventricle Normal RV size. Normal systolic function. Atria Normal left atrium. Normal right atrium. Bubble contrast study negative for right to left interatrial shunt. Mitral Valve Normal mitral valve. Tricuspid Valve Normal tricuspid valve. Aortic Valve Normal aortic valve. Trisinus/trileaflet aortic valve. Pulmonic Valve Normal pulmonic valve. Great Vessels Normal aortic root. The pulmonary artery is normal size. Normal inferior vena cava. Pericardium/Pleural No pericardial effusion. Medication Performed a rapid injection of agitated mix of 9 cc saline and 1cc air to assess for atrial septal defect. MMode/2D Measurements AND Calculations LVIDd: 4.7 cm IVSd: 1.6 cm LVOT diam: 2.0 cm LVIDs: 2.5 cm LVPWd: 1.2 cm RVDd: 4.4 cm FS: 45.8 % LVOT area: 3.2 cm2 Ao root diam: 3.8 cm LAV(MOD-bp): 76.5 ml LVAd ap4: 35.8 cm2 LA dimension: 4.9 cm LAV(MOD-bp) Indexed: 36.8 ml/m2 EDV(MOD-sp4): 127.0 ml LAV(MOD-sp2): 71.4 ml EDV(sp4-el): 128.6 ml LAV(MOD-sp4): 75.9 ml LVAs ap4: 17.9 cm2 ESV(MOD-sp4): 40.5 ml ESV(sp4-el): 41.2 ml EF(MOD-sp4): 68.1 % EF(sp4-el): 67.9 % SV(MOD-sp4): 86.4 ml SV(sp4-el): 87.4 ml LA A4 area: 23.1 cm2 RA A4 area: 23.2 cm2 Time Measurements MV dec time: 0.20 sec Doppler Measurements AND Calculations MV E max mateo: 79.3 cm/sec Lat Peak E' Mateo: 8.1 cm/sec Med Peak E' Mateo: 6.8 cm/sec MV A max mateo: 64.7 cm/sec E/E' lat: 9.7 E/E' med: 11.6 MV E/A: 1.2 MV V2 max: 86.1 cm/sec MV P1/2t max mateo: 87.6 cm/sec Ao V2 max: 163.1 cm/sec MV max P.0 mmHg MV P1/2t: 69.2 msec Ao max P.6 mmHg MV V2 mean: 45.2 cm/sec MV dec slope: 370.9 cm/sec2 Ao V2 mean: 95.1 cm/sec MV mean P.97 mmHg MVA(P1/2t): 3.2 cm2 Ao mean P.4 mmHg MV V2 VTI: 28.9 cm Ao V2 VTI: 30.1 cm MVA(VTI): 2.5 cm2 SJ(I,D): 2.4 cm2 SJ(V,D): 1.8 cm2 LV V1 max: 91.2 cm/sec SV(LVOT): 73.4 ml PA V2 max: 89.6 cm/sec LV V1 max P.3 mmHg LV V1 mean P.6 mmHg LV V1 mean: 58.5 cm/sec LV V1 VTI: 22.7 cm TR max mateo: 266.3 cm/sec TR max P.4 mmHg Interpretation Summary Normal LV size. Left ventricular systolic function is normal. The estimated ejection fraction is 60 %. Stage 1 diastolic dysfunction. Bubble contrast study negative for right to left interatrial shunt. Ordering Physician: Donna Fowler Referring Physician: Ang Smith M.D. Performed By: Rodolfo Mcpherson RCS 09/14/18 1450 Date Newton Palmer MD CC: Donna Fowler MD; Ang Smith MD Date Dictated: 09/14/18 1340 Date Transcribed: 09/14/181449 Predatory Game Hunter: Signed TROPONIN-I Collected: 09/14/2018 Status: F Source: [place] 12:20 PM [facility] REPOSITORY Order Comment: 'TROP' Serial specimen #1, #2 or #3: 2 TYPE CODE TESTS RESULT OUT OF RANGE REFERENCE UNITS LAB L501.4010 <0.045 ng/mL Normal < 0.015 TROPONIN-I Result Comment: TROPONIN-I EXPECTED VALUES <0.045 Negative 0.045 - 0.590 Consistent with Cardiac Damage > OR = 0.600 Critical Value Not every elevated troponin is indicative of CO. These values should be used with clinical judgement in examining the patient's clinical picture for diagnosis. To establish a diagnosis of CO versus myocardial injury, there must be a demonstrated rise and/or fall in the troponin values, in addition to ischemic symptoms, EKG changes, new regional wall motion abnormality, and/or angiographical evidence. PLEASE NOTE: REFERENCE RANGES EDITED 18 Performed By: #### L501.4010 #### [facility] [address] [place], [address] BRAIN WITHOUT Observed: 09/14/2018 Status: F Source: [place] CONTRAST 10:57 AM [facility] REPOSITORY [facility] Imaging Services [address] [place] [address] Brain without Contrast MR#: [id number] Acct: [id number] Name: ELYSE MUNIZ Rep #: [id number] : 1935 M 82 From: Ricardo Copeland MD PCP: Ang Smith MD Status: ADM IN Study: Brain without Contrast Date of Exam: 09/14/18 Exam# [id number] Ordering Dr: Donna Fowler MD STUDY: MRI BRAIN WITHOUT CONTRAST REASON FOR EXAM: Male, 82 years old. Lightheaded and dizzy since Monday TECHNIQUE: Standardized multiplanar fat and water weighted pulse sequences were obtained. COMPARISON: CT brain from today FINDINGS: There is mild cerebral atrophy with widening of the extra- axial spaces and ventricular dilatation. There are a limited number of small white matter hyperintensities, distributed throughout the deep white matter tracts of the cerebral hemispheres, consistent with mild chronic white matter ischemic changes. There is no evidence for recent intracranial ischemia or other cause of cytotoxic edema on diffusion weighted imaging (DWI). Normal bilateral basal ganglia. Normal thalami. There is no extra-axial fluid accumulation. Normal flow voids within the major intracranial circulation suggesting patency by spin echo criteria. Normal sella turcica, pituitary gland, infundibular stalk, optic chiasm and hypothalamus. Normal tectal plate and pineal gland. Normal midbrain, ash[place] and medulla. Normal cerebellum. Normal basal cisterns. Normal bilateral temporal bones. Normal bilateral internal auditory canals. Scleral banding left globe. Normal visualized paranasal sinuses. Normal calvarium and skull base. Normal visualized soft tissue structures. Normal visualized upper cervical spine. MRI/Brain without Contrast IMPRESSION: Involutional changes of the brain, as described above. Electronically Signed: Ricardo Copeland MD at 16:15 EST , Service support , CC: Donna Fwoler MD; Ang Smith MD Predatory Game Hunter: Signed MRA HEAD ONLY WITHOUT Observed: 09/14/2018 Status: F Source: [place] CONTRAST 10:57 AM [facility] REPOSITORY [facility] Imaging Services [address] [place] [address] MRA Head ONLY without Contrast MR#: [id number] Acct: [id number] Name: ELYSE MUNIZ Rep #: [id number] : 1935 M 82 From: Ricardo Copeland MD PCP: Ang Smith MD Status: ADM IN Study: MRA Head ONLY without Contrast Date of Exam: 09/14/18 Exam# [id number] Ordering Dr: Donna Fowler MD STUDY: MRA OF THE HEAD WITHOUT CONTRAST REASON FOR EXAM: Male, 82 years old. Lightheaded and dizzy since Monday TECHNIQUE: 3-D hftc-rv-ewsmmf (TOF) imaging was performed with MIPs. The study was performed unenhanced. COMPARISON: CT the brain from today FINDINGS: Normal bilateral petrous carotid arteries. Normal right cavernous carotid artery with a normal supraclinoid bifurcation. Normal left cavernous carotid artery with a normal supraclinoid bifurcation. Normal right A1 segments of the anterior cerebral artery. Normal left A1 segments of the anterior cerebral artery. Normal intact anterior communicating artery (ACOM). Normal bilateral A2 segments of the anterior cerebral arteries. Normal right M1 and M2 segments of the middle cerebral arteries, with a normal M1 bifurcation. Normal left M1 and M2 segments of the middle cerebral arteries, with a normal M1 bifurcation. Normal right posterior communicating artery (PCOM). Normal left posterior communicating artery (PCOM). Narrowed left vertebral artery distally. Right vertebral artery is visualized and appears normal. There is tortuosity with elongation of the basilar artery. The visualized bilateral superior cerebellar (SCA) arteries are normal. Normal bilateral P1, P2 and visualized P3 segments of the posterior cerebral arteries. There is no demonstrated aneurysm of the [place] of [place]. There is no major vessel occlusion or hemodynamically significant stenosis. There is no demonstrated abnormality of the visualized brain. 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 Tortuous basilar artery. Otherwise unremarkable exam. Electronically Signed: Ricardo Copeland MD at 16:23 EST , Service support , CC: Donna Fowler MD; Ang Smith MD Predatory Game Hunter: Signed MRA NECK WITH Observed: 09/14/2018 Status: F Source: [place] CONTRAST 10:57 AM [facility] REPOSITORY [facility] Imaging Services [address] [place] [address] MRA Neck WITH Contrast MR#: [id number] Acct: [id number] Name: ELYSE MUNIZ Rep #: [id number] : 1935 M 82 From: Ricardo Copeland MD PCP: Ang Smith MD Status: ADM IN Study: MRA Neck WITH Contrast Date of Exam: 09/14/18 Exam# [id number] Ordering Dr: Donna Fowler MD STUDY: MRA NECK WITH AND WITHOUT CONTRAST REASON FOR EXAM: Male, 82 years old. Lightheaded and dizziness TECHNIQUE: 3-D rhdq-ez-pnucmn (TOF) imaging was performed in an 1.5 T MRI scanner. 10 ml of Gadavist was administered for the contrast enhanced images. COMPARISON: None. FINDINGS: RIGHT CAROTID ARTERIES: Normal right common carotid artery (CCA). Normal right common carotid bulb. Normal origin of the right internal carotid (ICA) artery without a hemodynamically significant stenosis. Normal visualized cervical portion of the right internal carotid artery. Normal origin of the right external carotid artery (ECA). LEFT CAROTID ARTERIES: Normal left common carotid artery (CCA). Normal left common carotid bulb. Normal origin of the left internal carotid (ICA) artery without a hemodynamically significant stenosis. Normal visualized cervical portion of the left internal carotid artery. Normal origin of the left external carotid artery (ECA). VERTEBRAL ARTERIES: Left vertebral artery is severely narrowed throughout the V3 segment. Right vertebral artery is dominant and normal. MRI/MRA Neck WITH Contrast IMPRESSION: Severely narrowed distal left vertebral artery otherwise unremarkable exam Electronically Signed: Ricardo Copeland MD at 16:59 EST , Service support , CC: Donna Fowler MD; Ang Smith MD Predatory Game Hunter: Signed CBC W/DIFF, AUTOMATED Collected: 09/14/2018 Status: F Source: [place] 9:05 AM [facility] REPOSITORY TYPE CODE TESTS RESULT OUT OF RANGE REFERENCE UNITS LAB L100.1000 4.4-11.0 K/mm3 Normal WBC 5.2 LAB L100.1200 4.6-6.2 M/mm3 Low RBC 4.27 LAB L100.1300 13.0-16.5 g/dl Normal HGB 13.6 LAB L100.1400 40-54 % Low HCT 39.5 LAB L100.1500 80-94 fL Normal MCV 92.5 LAB L100.1600 27.0-32.0 pg Normal MCH 31.9 LAB L100.1700 32-36 g/gl Normal MCHC 34.4 LAB L100.1810 11.6-14.6 % Normal RDW CV 13.5 LAB L100.1820 35.1-43.9 fl High RDW SD 44.6 LAB L100.1900 150-450 K/mm3 Normal PLT 185 LAB L100.2000 6.2-12.0 fl Normal MPV 9.5 LAB L100.2100 47-70 % Normal NEUT% 56.6 LAB L100.2200 19-41 % Normal LY% 24.6 LAB L100.2300 0-10 % High MONO% 10.7 LAB L100.2400 0-5 % High EO% 7.1 LAB L100.2500 0-1 % Normal BASO% 0.8 LAB L100.2550 0.0-0.9 % Normal IM GRAN % 0.200 Result Comment: IG% - Immature Granulocytes (promyelocytes, myelocytes and metamyelocytes) > 1% indicates that a LEFT SHIFT is Present. LAB L100.2620 2.0-7.7 X10 3/uL Normal Absolute Neut 3.0 LAB L100.2720 0.83-4.51 X10 3/ul Normal Absolute Lymph 1.29 Performed By: #### L100.0100 #### [facility] [address] [place], [address] PROTHROMBIN TIME W/INR Collected: 09/14/2018 Status: F Source: [place] 9:05 AM [facility] REPOSITORY TYPE CODE TESTS RESULT OUT OF RANGE REFERENCE UNITS LAB L300.4150 11.7-14.9 SECONDS Normal PROTIME 13.3 LAB L300.4200 Normal INR 1.0 Performed By: #### L300.3900, L300.4310 #### [facility] [address] [facility] [place], [address] PARTIAL THROMBOPLAST Collected: 09/14/2018 Status: F Source: [place] TIME 9:05 AM [facility] REPOSITORY TYPE CODE TESTS RESULT OUT OF RANGE REFERENCE UNITS LAB L300.4310 24.1-36.2 Seconds Normal PTT 31.8 Performed By: #### L300.3900, L300.4310 #### [facility] [address] [facility] [facility] [address] BASIC METABOLIC Collected: 09/14/2018 Status: F Source: [place] PROFILE (BMP) 9:05 AM [facility] REPOSITORY TYPE CODE TESTS RESULT OUT OF RANGE REFERENCE UNITS LAB L501.0100 74-106 mg/dL High GLU 113 Result Comment: Fasting Glucose result from 100 to 125 mg/dL suggests IMPAIRED HOMEOSTASIS per A.D.A. criteria. Please note revised GLUCOSE reference range effective 2017. LAB L501.1000 7-18 mg/dL Normal BUN 14 LAB L501.1100 0.70-1.30 mg/dL Normal CREAT,SERUM 0.94 Result Comment: The validity of the calculated GFR AND GFRAA in patients over 70 years has not been determined. Clinical correlation is essential. LAB L501.1110 >60 mL/min Normal EST GFR 82 Result Comment: Non- GFR Calc LAB L501.1115 >60 mL/min Normal EST GFR - AA 99 Result Comment: GFR Calc LAB L501.1255 ml/min Normal Estimated CRCL 64.72 LAB L501.1300 10-20 RATIO Normal BUN/CRE 14.9 LAB L501.2200 8.5-10 mg/dL Normal .1 CA 9.5 LAB L501.5300 136-14 mmol/L Normal 5 NA 140 LAB L501.5600 3.5-5. mmol/L Normal 1 K 4.0 LAB L501.5900 98-107 mmol/L Normal CL 105 LAB L501.6100 21.0-3 mmol/L Normal 2.0 CO2 28.0 LAB L501.6200 5-15 Normal GAP 7 Performed By: #### L500.2500, L501.4010 #### [facility] [address] [facility] [place], [place], [id number] TROPONIN-I Collected: 09/14/2018 Status: F Source: [place] 9:05 AM [facility] REPOSITORY TYPE CODE TESTS RESULT OUT OF RANGE REFERENCE UNITS LAB L501.4010 <0.045 ng/mL Normal < 0.015 TROPONIN-I Result Comment: TROPONIN-I EXPECTED VALUES <0.045 Negative 0.045 - 0.590 Consistent with Cardiac Damage > OR = 0.600 Critical Value Not every elevated troponin is indicative of CO. These values should be used with clinical judgement in examining the patient's clinical picture for diagnosis. To establish a diagnosis of CO versus myocardial injury, there must be a demonstrated rise and/or fall in the troponin values, in addition to ischemic symptoms, EKG changes, new regional wall motion abnormality, and/or angiographical evidence. PLEASE NOTE: REFERENCE RANGES EDITED 18 Performed By: #### L500.2500, L501.4010 #### [facility] [address] [place], [place], [id number] THYROID STIM HORMONE Collected: 09/14/2018 Status: F Source: [place] (TSH) 9:05 AM [facility] REPOSITORY Order Comment: Comments: as add on test TYPE CODE TESTS RESULT OUT OF RANGE REFERENCE UNITS LAB L501.9520 0.358-3.74 uIU/mL Normal TSH 1.26 Performed By: #### L501.9520 #### [facility] [address] [place], [address] HEMOGLOBIN A1C Collected: 09/14/2018 Status: F Source: [place] 9:05 AM [facility] REPOSITORY Order Comment: Comments: as add on test TYPE CODE TESTS RESULT OUT OF RANGE REFERENCE UNITS LAB L501.9985 4.2-6.3 % Normal HGB A1C 5.7 Performed By: #### L501.9985 #### [facility] [address] [place], [address] BRAIN/HEAD WITHOUT Observed: 09/14/2018 Status: F Source: [place] CONTRAST 9:00 AM [facility] REPOSITORY [facility] Imaging Services [address] [place] [address] Brain/Head without Contrast MR#: [id number] Acct: [id number] Name: ELYSE MUNIZ Rep #: [id number] : 1935 M 82 From: Martin Chavez MD PCP: Ang Smith MD Status: REG ER Study: Brain/Head without Contrast Date of Exam: 09/14/18 Exam# [id number] Ordering Dr: Marck Ho MD STUDY: CT BRAIN WITHOUT CONTRAST REASON FOR EXAM: Male, 82 years old. Dizziness. RADIATION DOSAGE (If Supplied By Facility): CTDIvol = ( 44.99 ) mGy, DLP = ( 846.73 ) mGycm TECHNIQUE: Transaxial CT imaging of the brain was performed without administration of intravenous contrast material. Individualized dose optimization techniques were used for this CT. COMPARISON: None. FINDINGS: Normal soft tissue structures. Normal calvarium. There is mild cerebral atrophy with widening of the extra- axial spaces and ventricular dilatation. Normal white matter tracts of the cerebral hemispheres. Normal basal ganglia and thalami. Normal brainstem. Normal cerebellum. There is no intracranial hemorrhage. There are no findings of an acute ischemic infarction. Dense calcification of the vertebral arteries bilaterally. Atherosclerotic calcification of the cavernous portions of the internal carotid arteries bilaterally. Result thickening of the right maxillary sinus. Partial opacification of the ethmoid sinuses. Mucosal thickening of the sphenoid sinus. CT/Brain/Head without Contrast IMPRESSION: Chronic involutional changes of the brain. Sinusitis as described. Electronically Signed: Martin Chavez MD at 9:34 EST Tel [phone], Service support , CC: Marck Ho MD; Ang Smith MD Predatory Game Hunter: Signed CHEST 1 VIEW Observed: 09/14/2018 Status: F Source: [place] 9:00 AM [facility] REPOSITORY [facility] Imaging Services [facility] [place] [address] Chest 1 View MR#: [id number] Acct: [id number] Name: ELYSE MUNIZ Rep #: [id number] : 1935 [facility] From: Martin Chavez MD PCP: Ang Smith MD Status: REG ER Study: Chest 1 View Date of Exam: 09/14/18 Exam# [id number] Ordering Dr: Marck Ho MD STUDY: X-RAY CHEST REASON FOR EXAM: Male, 82 years old. Dizziness. TECHNIQUE: Single AP portable view of the chest. COMPARISON: None. FINDINGS: EKG electrodes are seen. Hyperinflation. There is no demonstrated pleural abnormality. Normal size heart. Normal mediastinum and queta. Normal visualized pulmonary arteries. Normal visualized aortic arch and descending thoracic aorta. Normal visualized thoracic spine. Normal visualized ribs, clavicles, and shoulders. There is no demonstrated abnormality of the visualized soft tissue structures of the upper abdomen. RAD/Chest 1 View IMPRESSION: Normal x-ray examination of the chest. Electronically Signed: Martin Chavez MD at 9:38 EST Tel [phone], Service support , CC: Marck Ho MD; Ang Smith MD Predatory Game Hunter: Signed PROGRESS Observed: 09/12/2018 Status: COMPLETED Source: [place] 12:50 PM [facility] [place] REPOSITORY HNO ID: [id number] Author: Ang Smith Service: (none) Author Type: Physician Type: Progress Notes Filed: 09/12/2018 1:01 PM Note Text: This note was created using Aura XM. Subjective Patient presents with: Right shoulder pain: x4 days Left Hip Pain Elyse Muniz returned from helping a friend reorganize a plant in [place]. He was walking around, moving some things, but did not feel he overdid any thing or hurt himself. He drove back 5 days ago, then woke up with right shoulder ache with certain movements, with increased right shoulder abduction weakness. He had chronic mild weakness in the past from rotator cuff tear 20 years ago. What was more bothersome was that he also developed sharp left posterolateral hip pain aggravated by getting up and standing. Sitting or slight shifts in his trunk forward or backward relieved the pain. He felt the pain was muscular, and he was limping at times. He had not taken any medication for his symptoms. His hypertension was historically controlled. 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 Dx: ICD9: 327.23, ICD10: G47.33 COMPOUNDED PRESCRIPTION replacment cpap machine with heated humifier, replacemnt mask and supplies. set presssure at 6 cm and H2o. ISAAC dx. FOSINOPRIL-HYDROCHLOROTHIAZIDE 20 MG-12.5 MG TAB Take one(1) tablet daily. [facility] medication. ZOCOR 40 MG ORAL TAB Take one(1) tablet daily. MULTIVITAMIN ORAL TAB Take one(1) tablet daily. naproxen (NAPROSYN) 500 mg tablet Take 1 tablet by mouth twice daily with meals for 10 days. Take with food. baclofen (LIORESAL) 20 mg tablet Take 1 tablet by mouth three times daily as needed (muscle spasms). No current facility-administered medications for this visit. Review of Systems Constitutional: Negative for fatigue, fever and unexpected weight change. Gastrointestinal: Negative. Genitourinary: Negative. Musculoskeletal: Positive for arthralgias. Negative for back pain. Skin: Negative. Neurological: Negative for numbness and headaches. Objective BP 148/74 (BP Site: Left Arm, BP Position: Sitting, BP Cuff Size: Regular Adult) Pulse 64 Temp 36.8 ?C (98.2 ?F) (Temporal Artery) Resp 12 Wt 91.6 kg (202 lb) BMI 29.83 kg/m? Physical Exam Constitutional: He is oriented to person, place, and time. No distress. Musculoskeletal: Right shoulder: He exhibits tenderness and decreased strength. He exhibits normal range of motion, no swelling, no crepitus and no deformity. Left hip: He exhibits normal range of motion, normal strength, no tenderness, no bony tenderness, no swelling and no deformity. Lumbar back: He exhibits no tenderness and no pain. Neurological: He is alert and oriented to person, place, and time. He has normal strength. No sensory deficit. Gait abnormal. Antalgic gait. Assessment and Plan 1. Acute pain of left hip - ICD9: 719.45, ICD10: M25.552 (primary diagnosis) Myofascial pain. - NAPROXEN 500 MG TABLET - BACLOFEN 20 MG TABLET Discussed medication dosage, usage, goals of therapy, and side effects. 2. Rotator cuff disorder, right - ICD9: 726.10, ICD10: M67.911 - NAPROXEN 500 MG TABLET - BACLOFEN 20 MG TABLET 3. Essential hypertension - ICD9: 401.9, ICD10: I10 Elevated due to pain. - Recheck BP later. Ang Smith MD CNOV Observed: 09/12/2018 Status: COMPLETED Source: [place] 11:[address] [facility] REPOSITORY Office Visit (INTMWS) ELYSE MUNIZ ([id number]) 1935 M Date Time Provider Department 09/12/18 11:00 AM ANG SMITH During your visit today, we recorded the following information about you: Temperature Pulse Respiration Blood pressure 98.2 degrees 64/minute 12/minute 148/74 Weight 91.6 kg Ang Smith MD 09/12/2018 1:01 PM Signed This note was created using Ortho-tagriter. Subjective Patient presents with: Right shoulder pain: x4 days Left Hip Pain Elyse Muniz returned from helping a friend reorganize a plant in [place]. He was walking around, moving some things, but did not feel he overdid any thing or hurt himself. He drove back 5 days ago, then woke up with right shoulder ache with certain movements, with increased right shoulder abduction weakness. He had chronic mild weakness in the past from rotator cuff tear 20 years ago. What was more bothersome was that he also developed sharp left posterolateral hip pain aggravated by getting up and standing. Sitting or slight shifts in his trunk forward or backward relieved the pain. He felt the pain was muscular, and he was limping at times. He had not taken any medication for his symptoms. His hypertension was historically controlled. 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 Dx: ICD9: 327.23, ICD10: G47.33 COMPOUNDED PRESCRIPTION replacment cpap machine with heated humifier, replacemnt mask and supplies. set presssure at 6 cm and H2o. ISAAC dx. FOSINOPRIL-HYDROCHLOROTHIAZIDE 20 MG-12.5 MG TAB Take one(1) tablet daily. [facility] medication. ZOCOR 40 MG ORAL TAB Take one(1) tablet daily. MULTIVITAMIN ORAL TAB Take one(1) tablet daily. naproxen (NAPROSYN) 500 mg tablet Take 1 tablet by mouth twice daily with meals for 10 days. Take with food. baclofen (LIORESAL) 20 mg tablet Take 1 tablet by mouth three times daily as needed (muscle spasms). No current facility-administered medications for this visit. Review of Systems Constitutional: Negative for fatigue, fever and unexpected weight change. Gastrointestinal: Negative. Genitourinary: Negative. Musculoskeletal: Positive for arthralgias. Negative for back pain. Skin: Negative. Neurological: Negative for numbness and headaches. Objective BP 148/74 (BP Site: Left Arm, BP Position: Sitting, BP Cuff Size: Regular Adult) Pulse 64 Temp 36.8 ?C (98.2 ?F) (Temporal Artery) Resp 12 Wt 91.6 kg (202 lb) BMI 29.83 kg/m? Physical Exam Constitutional: He is oriented to person, place, and time. No distress. Musculoskeletal: Right shoulder: He exhibits tenderness and decreased strength. He exhibits normal range of motion, no swelling, no crepitus and no deformity. Left hip: He exhibits normal range of motion, normal strength, no tenderness, no bony tenderness, no swelling and no deformity. Lumbar back: He exhibits no tenderness and no pain. Neurological: He is alert and oriented to person, place, and time. He has normal strength. No sensory deficit. Gait abnormal. Antalgic gait. Assessment and Plan 1. Acute pain of left hip - ICD9: 719.45, ICD10: M25.552 (primary diagnosis) Myofascial pain. - NAPROXEN 500 MG TABLET - BACLOFEN 20 MG TABLET Discussed medication dosage, usage, goals of therapy, and side effects. 2. Rotator cuff disorder, right - ICD9: 726.10, ICD10: M67.911 - NAPROXEN 500 MG TABLET - BACLOFEN 20 MG TABLET 3. Essential hypertension - ICD9: 401.9, ICD10: I10 Elevated due to pain. - Recheck BP later. Ang Smith MD Referring Provider: SELF [200] Allergies As of Date: 09/12/2018 (No Known Allergies) Date Reviewed: 09/12/2018 Reviewed by: Elaine Jackson LPN - Fully Assessed Reason for Visit: Right shoulder pain [Other] Cmt: x4 days Left Hip Pain [1555] Primary Visit Diagnosis:Acute pain of left hip [M25.552] Other Visit Diagnoses:Rotator cuff disorder, right [M67.911] Essential hypertension [I10] Order(s):naproxen (NAPROSYN) 500 mg tabletTake 1 tablet by mouth twice daily with meals for 10 days. Take with food.Disp: 20 tabletRfl: 0 baclofen (LIORESAL) 20 mg tabletTake 1 tablet by mouth three times daily as needed (muscle spasms).Disp: 21 tabletRfl: 0 Prescriptions as of 09/12/2018 Sig: COMPOUNDED PRESCRIPTION CPAP mask, tubing, and suppli* * COMPOUNDED PRESCRIPTION replacment cpap machine with * * FOSINOPRIL 20 MG-HYDROCHLOROT* Take one(1) tablet daily. [facility]* * ZOCOR 40 MG TABLET Take one(1) tablet daily. * MULTIVITAMIN TABLET Take one(1) tablet daily. NAPROXEN 500 MG TABLET Take 1 tablet by mouth twice * BACLOFEN 20 MG TABLET Take 1 tablet by mouth three * Problem List As Of Date 09/12/2018 Noted Resolved Pure Hypercholesterolemia [E78.00] INVALID FOR* Essential hypertension [I10] INVALID FOR* Diverticulosis of colon (without mention of hem*INVALID FOR*06/07/2017 Unspecified sleep apnea [G47.30] INVALID FOR*05/25/2011 More... 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 Actinic skin damage [L57.8] INVALID FOR*06/07/2017 Other seborrheic keratosis [L82.1] INVALID FOR* Postinflammatory skin changes [R23.4] INVALID FOR*06/07/2017 Prescriptions ordered this encounter Disp Refills Start End NAPROXEN 500 MG TABLET 20 t* 0 09/12/2018 09/22/2018 Route: ORAL Sig: Take 1 tablet by mouth twice daily with meals for 10 days. Take with food. BACLOFEN 20 MG TABLET 21 t* 0 09/12/2018 Route: ORAL Sig: Take 1 tablet by mouth three times daily as needed (muscle spasms). Disposition: Return if symptoms worsen or fail to improve. Follow-up and Disposition History Recorded Encounter Status:Closed by ANG SMITH MD on 09/12/18 PROGRESS Observed: 06/28/2018 Status: COMPLETED Source: [place] 5:11 PM [facility] REPOSITORY HNO ID: [id number] Author: Ang Smith Service: (none) Author Type: Physician Type: Progress Notes Filed: 06/28/2018 5:17 PM Note Text: This note was created using Aura XM. Subjective Elyse Muniz was doing well. [facility] His hypertension was controlled. Lipids improved from last year. He was using his CPAP nightly with good results. 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 Dx: ICD9: 327.23, ICD10: G47.33 COMPOUNDED PRESCRIPTION replacment cpap machine with heated humifier, replacemnt mask and supplies. set presssure at 6 cm and H2o. ISAAC dx. FOSINOPRIL-HYDROCHLOROTHIAZIDE 20 MG-12.5 MG TAB Take one(1) tablet daily. VA medication. ZOCOR 40 MG ORAL TAB Take one(1) tablet daily. MULTIVITAMIN ORAL TAB Take one(1) tablet daily. No current facility-administered medications for this visit. Review of Systems Constitutional: Negative. Respiratory: Negative. Cardiovascular: Negative. Neurological: Negative. Objective BP 120/62 (BP Site: Left Arm, BP Position: Sitting, BP Cuff Size: Large Adult) Pulse 68 Temp 36.4 ?C (97.6 ?F) (Left Tympanic) Resp 18 Wt 92.6 kg (204 lb 3.2 oz) BMI 30.16 kg/m? Physical Exam Constitutional: No distress. Cardiovascular: Normal rate, regular rhythm and normal heart sounds. Exam reveals no gallop. No murmur heard. Pulmonary/Chest: Breath sounds normal. Abdominal: There is no tenderness. Musculoskeletal: He exhibits no edema. Cholesterol, Total (mg/dL) Date Value 06/26/2018 169 05/26/2017 179 HDL Cholesterol (mg/dL) Date Value 06/26/2018 56 05/26/2017 53 LDL Cholesterol (mg/dL) Date Value 06/26/2018 93 05/26/2017 102 Triglyceride (mg/dL) Date Value 06/26/2018 102 05/26/2017 118 Assessment and Plan 1. Essential hypertension - ICD9: 401.9, ICD10: I10 (primary diagnosis) - good control - Continue current medication(s) 2. Pure hypercholesterolemia - ICD9: 272.0, ICD10: E78.00 - good control - Continue current medication. 3. Obstructive sleep apnea - ICD9: 327.23, ICD10: G47.33 Controlled, compliant with CPAP use. Ang Smith MD CNOV Observed: 06/28/2018 Status: COMPLETED Source: [place] 4:[address] [facility] REPOSITORY Office Visit (INTMWS) ELYSE MUNIZ ([id number]) 1935 M Date Time Provider Department 06/28/18 4:20 PM ANG SMITH INTJenniferWS During your visit today, we recorded the following information about you: Temperature Pulse Respiration Blood pressure 97.6 degrees 68/minute 18/minute 120/62 Weight 92.6 kg Ang Smith MD 06/28/2018 5:17 PM Signed This note was created using NoteWriter. Subjective Elyse Muniz was doing well. [facility] His hypertension was controlled. Lipids improved from last year. He was using his CPAP nightly with good results. 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 Dx: ICD9: 327.23, ICD10: G47.33 COMPOUNDED PRESCRIPTION replacment cpap machine with heated humifier, replacemnt mask and supplies. set presssure at 6 cm and H2o. ISAAC dx. FOSINOPRIL-HYDROCHLOROTHIAZIDE 20 MG-12.5 MG TAB Take one(1) tablet daily. VA medication. ZOCOR 40 MG ORAL TAB Take one(1) tablet daily. MULTIVITAMIN ORAL TAB Take one(1) tablet daily. No current facility-administered medications for this visit. Review of Systems Constitutional: Negative. Respiratory: Negative. Cardiovascular: Negative. Neurological: Negative. Objective BP 120/62 (BP Site: Left Arm, BP Position: Sitting, BP Cuff Size: Large Adult) Pulse 68 Temp 36.4 ?C (97.6 ?F) (Left Tympanic) Resp 18 Wt 92.6 kg (204 lb 3.2 oz) BMI 30.16 kg/m? Physical Exam Constitutional: No distress. Cardiovascular: Normal rate, regular rhythm and normal heart sounds. Exam reveals no gallop. No murmur heard. Pulmonary/Chest: Breath sounds normal. Abdominal: There is no tenderness. Musculoskeletal: He exhibits no edema. Cholesterol, Total (mg/dL) Date Value 06/26/2018 169 05/26/2017 179 HDL Cholesterol (mg/dL) Date Value 06/26/2018 56 05/26/2017 53 LDL Cholesterol (mg/dL) Date Value 06/26/2018 93 05/26/2017 102 Triglyceride (mg/dL) Date Value 06/26/2018 102 05/26/2017 118 Assessment and Plan 1. Essential hypertension - ICD9: 401.9, ICD10: I10 (primary diagnosis) - good control - Continue current medication(s) 2. Pure hypercholesterolemia - ICD9: 272.0, ICD10: E78.00 - good control - Continue current medication. 3. Obstructive sleep apnea - ICD9: 327.23, ICD10: G47.33 Controlled, compliant with CPAP use. Ang Smith MD Referring Provider: SELF [200] Allergies As of Date: 06/28/2018 (No Known Allergies) Date Reviewed: 06/28/2018 Reviewed by: Wen Quintero LPN - Fully Assessed Reason for Visit: Recheck [92] Cmt: 6 month follow up labwork Primary Visit Diagnosis:Essential hypertension [I10] Other Visit Diagnoses:Pure hypercholesterolemia [E78.00] Obstructive sleep apnea [G47.33] Prescriptions as of 06/28/2018 Sig: COMPOUNDED PRESCRIPTION CPAP mask, tubing, and suppli* * COMPOUNDED PRESCRIPTION replacment cpap machine with * * FOSINOPRIL 20 MG-HYDROCHLOROT* Take one(1) tablet daily. VA* * ZOCOR 40 MG TABLET Take one(1) tablet daily. * MULTIVITAMIN TABLET Take one(1) tablet daily. Problem List As Of Date 06/28/2018 Noted Resolved Pure Hypercholesterolemia [E78.00] INVALID FOR* Essential hypertension [I10] INVALID FOR* Diverticulosis of colon (without mention of hem*INVALID FOR*06/07/2017 Unspecified sleep apnea [G47.30] INVALID FOR*05/25/2011 More... 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 Actinic skin damage [L57.8] INVALID FOR*06/07/2017 Other seborrheic keratosis [L82.1] INVALID FOR* Postinflammatory skin changes [R23.4] INVALID FOR*06/07/2017 Disposition: Return in about 6 months (around 12/26/2018). Follow-up and Disposition History Recorded Encounter Status:Closed by ANG SMITH MD on 06/28/18 LIPID PANEL, BASIC Collected: 06/26/2018 Status: F Source: [place] 7:48 AM [facility] REPOSIT[facility] TYPE CODE TESTS RESULT OUT OF REFERENCE UNITS RANGE LAB CHOL <200 mg/dL Cholesterol 169 Result Comment: <200 mg/dL, Desirable 200-239 mg/dL, Borderline high >239 mg/dL, High LAB TRIGLY <150 mg/dL Triglyceride 102 Result Comment: <150 mg/dL, Normal 150-199 mg/dL, Borderline high 200-499 mg/dL, High >499 mg/dL, Very high LAB HDL >39 mg/dL HDL-Cholesterol 56 Result Comment: 40-59 mg/dL, Acceptable >59 mg/dL, High: Negative risk factor for coronary heart disease <40 mg/dL, Low: Positive risk factor for coronary heart disease LAB LDL <100 mg/dL LDL-Cholesterol 93 Result Comment: <100 mg/dL, Optimal 100-129 mg/dL, Near optimal/above optimal 130-159 mg/dL, Borderline high 160-189 mg/dL, High >189 mg/dL, Very high Secondary prevention optimal LDL Cholesterol levels are recommended to be < 70 mg/dL LAB NONHDL <130 mg/dL Non HDL Cholesterol 113 Result Comment: <130 mg/dL, Optimal 130-159 mg/dL, Near optimal/above optimal 160-189 mg/dL, Borderline high 190-219 mg/dL, High >219 mg/dL, Very high Secondary prevention optimal non HDL Cholesterol levels are recommended to be < 100 mg/dL LAB FT hrs Fasting Time 12 LAB VLDL <30 mg/dL VLDL Cholesterol 20 LAB TCHDL <5.10 TC:HDL Ratio 3.02 LAB LDLHDL <2.54 LDL:HDL Ratio 1.66 Result Comment: Reference: 1. National Cholesterol Education Program ATP III Guideline At-A-Glance Quick Desk Reference: National Heart, Lung, and Blood [place]. National Institutes of Health. 2001: NIH Publication No. 01-3305. 2. An International Atherosclerosis Society position paper: global recommendations for the management of dyslipidemia: executive summary, Atherosclerosis. 2014: 232(2):410-413. Performed By: #### LIPB #### [facility] [address] [place] [address] CNPTOUTREAINES Observed: 06/12/2018 Status: COMPLETED Source: [place] 12:[address] [facility] REPOSITORY Patient Outreach (FAMPST) ELYSE MUNIZ ([id number]) 1935 M Date Time Provider Department 06/12/18 [facility] During your visit today, we recorded the following information about you: Allergies As of Date: 06/12/2018 (No Known Allergies) Date Reviewed: 12/06/2017 Reviewed by: Elaine Jackson LPN - Fully Assessed Visit Diagnosis:Medication management [Z79.899] Order(s):LIPID PANEL BASIC [SQLIPB] Order #: [id number] FUTURE Prescriptions as of 06/12/2018 Sig: COMPOUNDED PRESCRIPTION CPAP mask, tubing, and suppli* * COMPOUNDED PRESCRIPTION replacment cpap machine with * * FOSINOPRIL 20 MG-HYDROCHLOROT* Take one(1) tablet daily. [facility]* * ZOCOR 40 MG TABLET Take one(1) tablet daily. * MULTIVITAMIN TABLET Take one(1) tablet daily. Problem List As Of Date 06/12/2018 Noted Resolved Pure Hypercholesterolemia [E78.00] INVALID FOR* Essential hypertension [I10] INVALID FOR* Diverticulosis of colon (without mention of hem*INVALID FOR*06/07/2017 Unspecified sleep apnea [G47.30] INVALID FOR*05/25/2011 More... 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 Actinic skin damage [L57.8] INVALID FOR*06/07/2017 Other seborrheic keratosis [L82.1] INVALID FOR* Postinflammatory skin changes [R23.4] INVALID FOR*06/07/2017 Encounter Status:Closed by Mofibo PRODUSER on 07/13/18 PROGRESS Observed: 12/06/2017 Status: COMPLETED Source: [place] 6:24 PM [facility] RE[facility] HNO ID: [id number] Author: Ang Smith Service: (none) Author Type: Physician Type: Progress Notes Filed: 12/06/2017 6:26 PM Note Text: This note was created using Ortho-tagriter. Subjective Elyse Muniz is a 82 year old male here for follow up. He was doing well. He was no longer taking finasteride. All his medications are from the [facility] in [place]. He was asking about PSA testing. I advised him that this is probably being done at the [facility]. His hypertension, lipids, and obstructive sleep apnea were controlled. 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 Dx: ICD9: 327.23, ICD10: G47.33 COMPOUNDED PRESCRIPTION replacment cpap machine with heated humifier, replacemnt mask and supplies. set presssure at 6 cm and H2o. ISAAC dx. FOSINOPRIL-HYDROCHLOROTHIAZIDE 20 MG-12.5 MG TAB Take one(1) tablet daily. [facility] medication. ZOCOR 40 MG ORAL TAB Take one(1) tablet daily. MULTIVITAMIN ORAL TAB Take one(1) tablet daily. No current facility-administered medications for this visit. Review of Systems Constitutional: Negative. Respiratory: Negative. Cardiovascular: Negative. Genitourinary: Negative. Neurological: Negative. Objective BP 132/70 (BP Site: Right Arm, BP Position: Sitting, BP Cuff Size: Regular Adult) Pulse 68 Temp 36.5 ?C (97.7 ?F) (Left Tympanic) Resp 18 Wt 91.2 kg (201 lb) BMI 29.68 kg/m2 Physical Exam Constitutional: He appears well-nourished. Cardiovascular: Normal heart sounds. Exam reveals no gallop. No murmur heard. Pulmonary/Chest: Breath sounds normal. Musculoskeletal: He exhibits no edema. Assessment and Plan ASSESSMENT/PLAN: 1. Essential hypertension - ICD9: 401.9, ICD10: I10 (primary diagnosis) - good control 2. Pure hypercholesterolemia - ICD9: 272.0, ICD10: E78.00 - good control - Continue current medication. 3. BPH with obstruction/lower urinary tract symptoms - ICD9: 600.01, 599.69, ICD10: N40.1, N13.8 Asymptomatic. 4. Obstructive sleep apnea - ICD9: 327.23, ICD10: G47.33 Controlled. See printed instructions or information. Ang Smith MD CNOV Observed: 12/06/2017 Status: COMPLETED Source: [place] 4:[address] [facility] REPOSITORY Office Visit (INTMWS) ELYSE MUNIZ ([id number]) 1935 M Date Time Provider Department 12/06/17 4:40 PM ANG SMITH INTJenniferWS During your visit today, we recorded the following information about you: Temperature Pulse Respiration Blood pressure 97.7 degrees 68/minute 18/minute 132/70 Weight 91.2 kg Ang Smith MD 12/06/2017 5:03 PM Signed Have [facility] lab results and medication record sent here or bring with you when you come for follow up. Ang Smith MD 12/06/2017 6:26 PM Signed This note was created using Ortho-tagriter. Subjective Elyes Muniz is a 82 year old male here for follow up. He was doing well. He was no longer taking finasteride. All [facility] are from [facility] [place]. He was asking about PSA testing. I advised him that this is probably being done at the [facility]. His hypertension, lipids, and obstructive sleep apnea were controlled. 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 Dx: ICD9: 327.23, ICD10: G47.33 COMPOUNDED PRESCRIPTION replacment cpap machine with heated humifier, replacemnt mask and supplies. set presssure at 6 cm and H2o. ISAAC dx. FOSINOPRIL-HYDROCHLOROTHIAZIDE 20 MG-12.5 MG TAB Take one(1) tablet daily. VA medication. ZOCOR 40 MG ORAL TAB Take one(1) tablet daily. MULTIVITAMIN ORAL TAB Take one(1) tablet daily. No current facility-administered medications for this visit. Review of Systems Constitutional: Negative. Respiratory: Negative. Cardiovascular: Negative. Genitourinary: Negative. Neurological: Negative. Objective BP 132/70 (BP Site: Right Arm, BP Position: Sitting, BP Cuff Size: Regular Adult) Pulse 68 Temp 36.5 ?C (97.7 ?F) (Left Tympanic) Resp 18 Wt 91.2 kg (201 lb) BMI 29.68 kg/m2 Physical Exam Constitutional: He appears well-nourished. Cardiovascular: Normal heart sounds. Exam reveals no gallop. No murmur heard. Pulmonary/Chest: Breath sounds normal. Musculoskeletal: He exhibits no edema. Assessment and Plan ASSESSMENT/PLAN: 1. Essential hypertension - ICD9: 401.9, ICD10: I10 (primary diagnosis) - good control 2. Pure hypercholesterolemia - ICD9: 272.0, ICD10: E78.00 - good control - Continue current medication. 3. BPH with obstruction/lower urinary tract symptoms - ICD9: 600.01, 599.69, ICD10: N40.1, N13.8 Asymptomatic. 4. Obstructive sleep apnea - ICD9: 327.23, ICD10: G47.33 Controlled. See printed instructions or information. Ang Smith MD Referring Provider: ANG SMITH [[id number]] Allergies As of Date: 12/06/2017 (No Known Allergies) Date Reviewed: 12/06/2017 Reviewed by: Elaine Jackson LPN - Fully Assessed Reason for Visit: F/U 6 Month [444] Primary Visit Diagnosis:Essential hypertension [I10] Other Visit Diagnoses:Pure hypercholesterolemia [E78.00] BPH with obstruction/lower urinary tract symptoms [N40.1, N13.8] Obstructive sleep apnea [G47.33] Prescriptions as of 12/06/2017 Sig: COMPOUNDED PRESCRIPTION CPAP mask, tubing, and suppli* * COMPOUNDED PRESCRIPTION replacment cpap machine with * * FOSINOPRIL 20 MG-HYDROCHLOROT* Take one(1) tablet daily. VA* * ZOCOR 40 MG TABLET Take one(1) tablet daily. * MULTIVITAMIN TABLET Take one(1) tablet daily. Problem List As Of Date 12/06/2017 Noted Resolved Pure Hypercholesterolemia [E78.00] INVALID FOR* Essential hypertension [I10] INVALID FOR* Diverticulosis of colon (without mention of hem*INVALID FOR*06/07/2017 Unspecified sleep apnea [G47.30] INVALID FOR*05/25/2011 More... 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 Actinic skin damage [L57.8] INVALID FOR*06/07/2017 Other seborrheic keratosis [L82.1] INVALID FOR* Postinflammatory skin changes [R23.4] INVALID FOR*06/07/2017 Other instructions from your clinician: Have [facility] lab results and medication record sent here or bring with you when you come for follow up. Medications Discontinued During This Encounter finasteride (PROSCAR) 5 mg tablet 90 t* 4 12/17/2015 12/06/2017 Route: ORAL Sig: Take 1 tablet by mouth once daily. Disc: Course of therapy completed Disposition: Return in about 6 months (around 06/07/2018). Follow-up and Disposition History Recorded Encounter Status:Closed by ANG SMITH MD on 12/06/17 BASIC METABOLIC PANL Collected: 12/05/2017 Status: F Source: [place] 12:02 PM [facility] REPOSITORY TYPE CODE TESTS RESULT OUT OF REFERENCE UNITS RANGE LAB GLU 74-99 mg/dL Glucose 98 Result Comment: The [place] Diabetes Association (ADA) provides guidance for cutoff values for fasting glucose and random glucose. The ADA defines fasting as no caloric intake for at least 8 hours. Fas ting plasma glucose results between 100 to 125 mg/dL indicate increased risk for diabetes (prediabetes). Fasting plasma glucose results greater than or equal to 126 mg/dL meet the criteria for diagnosis of diabetes. In the absence of unequivocal hyperglycemia, results should be confirmed by repeat testing. In a patient with classic symptoms of hyperglycemia or hyperglycemic crisis, random plasma glucose results greater than or equal to 200 mg/dL meet the criteria for diagnosis of diabetes. Reference: Standards of Medical Care in Diabetes 2016, [place] [employer] Association. Diabetes Care. 2016.39(Suppl 1). LAB BUN 9-24 mg/dL BUN 21 LAB CRET 0.73-1.22 mg/dL Creatinine 1.05 LAB NA 136-144 mmol/L Sodium 138 LAB K 3.7-5.1 mmol/L Potassium 4.6 LAB CL 97-105 mmol/L Chloride 99 LAB CO2 22-30 mmol/L CO2 25 LAB AGAP 9-18 mmol/L Anion Gap 14 LAB CA 8.5-10.2 mg/dL Calcium, Total 9.8 LAB GFRAA eGFR- Amer. >60 LAB GFRNAA . eGFR-All Other Races >60 Result Comment: eGFR (Estimated GFR) Units of measure: mL/min/1.73 meters squared eGFR is derived from the reexpressed MDRD Study equation using the following parameters: serum creatinine, age, gender and race. The creatinine assay has been calibrated to be traceable to IDAK. An eGFR <60 mL/min/1.73m2 for >3 months is consistent with chronic kidney disease. Refer to KDOQI guidelines for clinical interpretation. In patients with unstable renal function, e.g. those with acute kidney injury, the eGFR may not accurately reflect actual GFR. Performed By: #### BMP #### [facility] [address] [place] [address] CAITLINTOUTREACH Observed: 11/21/2017 Status: COMPLETED Source: [place] 12:[address] [facility] REPOSITORY Patient Outreach (INTMWH) ELYSE MUNIZ ([id number]) 1935 M Date Time Provider Department 11/21/17 ANG SMITH [facility] During your visit today, we recorded the following information about you: Allergies As of Date: 11/21/2017 (No Known Allergies) Date Reviewed: 06/07/2017 Reviewed by: Krissy Holden LPN - Fully Assessed Visit Diagnosis:Medication management [Z79.899] Order(s):BASIC METABOLIC PNL [SQBMP] Order #: [id number] FUTURE Prescriptions as of 11/21/2017 Sig: COMPOUNDED PRESCRIPTION CPAP mask, tubing, and suppli* X FINASTERIDE 5 MG TABLET Take 1 tablet by mouth once d* * COMPOUNDED PRESCRIPTION replacment cpap machine with * * FOSINOPRIL 20 MG-HYDROCHLOROT* Take one(1) tablet daily. VA* * ZOCOR 40 MG TABLET Take one(1) tablet daily. * MULTIVITAMIN TABLET Take one(1) tablet daily. Problem List As Of Date 11/21/2017 Noted Resolved Pure Hypercholesterolemia [E78.00] INVALID FOR* Essential hypertension [I10] INVALID FOR* Diverticulosis of colon (without mention of hem*INVALID FOR*06/07/2017 Unspecified sleep apnea [G47.30] INVALID FOR*05/25/2011 More... 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 Actinic skin damage [L57.8] INVALID FOR*06/07/2017 Other seborrheic keratosis [L82.1] INVALID FOR* Postinflammatory skin changes [R23.4] INVALID FOR*06/07/2017 Encounter Status:Closed by AFIA VIDAL on 06/08/18 CNCO Observed: 10/13/2017 Status: COMPLETED Source: [place] 12:00 AM [facility] REPOSITORY Letter Text [address] [place] [address] [phone] 10/13/2017 Elyse Muniz [address] [place] [address] Dear Mr. Muniz: Due to a change in the provider's schedule, it has been necessary to reschedule your appointment. Enclosed please find a new appointment reminder that will replace the one previously sent to you. If this appointment is not convenient for you, please contact our office at [phone]. Thank you for choosing the [facility] as your Healthcare Provider. Sincerely, Appointment Office Department of Internal Medicine Enclosure ALLERGIES ALLERGIES DATE TYPE / CODE NAME / CODE REACTION SEVERITY SOURCE 09/14/2018 Drug No Known Unknown [facility] Allergy/416 Allergies/J05468 Hospital 676447(SNOM 0388(RXNORM) Repository ED CT) Drug NO KNOWN [facility] Class/46410 ALLERGIES Main Critz 1003(SNOMED Repository CT) ENCOUNTERS ENCOUNTERS ADMIT/DISCHARGE ACCOUNT ADMITTING ENCOUNTER LOCATION SOURCE NUMBER CLASS 09/18/2018 [id number] Ambulatory [facility] ing:PT Repository 09/14/2018/09/15/19 [id number] [place] Inpatient [place] 19 Encounter [facility] ing:PCURoom: Repository KEM083Lds: 1 09/14/2018 [id number] [place] Ambulatory BMSBuilding:Nani [place] MS[facility] Repository 09/14/2018 [id number] [place] Ambulatory BMSBuilding:Nani [place] MS[facility] Repository 09/12/2018/09/13/19 [id number] Ambulatory [address] Repository 06/28/2018/06/29/20 [id number] Ambulatory [address] Repository 06/26/2018/06/26/20 [id number] Ambulatory [address] Repository 12/06/2017/12/07/19 [id number] Ambulatory [address] Repository 12/05/2017 [id number] Ambulatory [facility] Repository PAYERS PAYERS ENCOUNTER GUARANTOR PAYER SUBSCRIBER SOURCE 09/18/2018 ELYSE J Primary ELYSE J [place] [id number] [place] Insurance:MEDICARE SHEADOB: [facility] CITLALI KUMAR, PART A BPolicy [id number] [address]Gaq: Number: Repository [id number] () Date:2002-11-26 09/18/2018 Secondary ELYSE J [place] Insurance:GOVERNMENT SHEADOB: Community PERSONNEL [id number] Number: Repository [id number] Date:2018-09-17 [address], [place] [address]MJ: 09/18/2018 Tertiary NOT GIVENUNK [place] Insurance:SELF PAY [facility] Number: Effective Repository Date:2018-09-17 09/14/2018 ELYSE J Primary ELYSE J [place] [id number] [place] Insurance:MEDICARE SHEADOB: [facility], PART A [facility] [id number]-Canonc[facility] [address]Jkb: Number: Repository [id number] (HP) Date:2018-09-14 09/14/2018 Secondary ELYSE J [place] Insurance:GOVERNMENT SHEADOB: [facility] [id number] Hospital Number: Repository [id number] Date:2018-09-14[address], [place] [address]NB: 09/14/2018 Tertiary NOT GIVENUNK [place] Insurance:SELF PAY [facility] Number: Effective Repository Date:2018-09-14 09/14/2018 ELYSE J Primary ELYSE J [place] [id number] [place] Insurance:MEDICARE SHEADOB: [facility], PART A [facility] [id number]-Canonc[facility] [address]Ejc: Number: Repository [id number] (HP) Date:2018-09-14 09/14/2018 Secondary ELYSE J [place] Insurance:GOVERNMENT [facility] [id number] Hospital Number: Repository [id number] Date:2018-09-14 [address], [place] [address]PD: 09/14/2018 Tertiary NOT GIVENUNK [place] Insurance:SELF PAY [facility] Number: Effective Repository Date:2018-09-14 09/14/2018 ELYSE J Primary ELYSE J [place] [id number] [place] Insurance:MEDICARE SHEADOB: [facility], PART A [facility] [id number]-Canonc[facility] [address]Auc: Number: Repository [id number] (HP) Date:2018-09-14 09/14/2018 Secondary ELYSE J [place] Insurance:GOVERNMENT [facility]HEADOB[facility] [id number] Hospital Number: Repository [id number] Date:2018-09-14P [address] [address]NA: 09/14/2018 Tertiary NOT GIVENUNK [place] Insurance:SELF PAY [facility] Number: Effective Repository Date:2018-09-14
== END 2018-09-15 11:19 | disposition home or self-care (01) | DRG 149 ==
LOC: ED 09:10 → PCU 10:48
PROVIDERS: Admitting Provider Internal Medicine; Emergency Provider Emergency Medicine; Family Provider Internal Medicine; PCP Internal Medicine; Visit Provider Internal Medicine
DX: H81.10 Benign paroxysmal vertigo, unspecified ear (principal); I65.02 Occlusion and stenosis of left vertebral artery; E78.5 Hyperlipidemia, unspecified; I10 Essential (primary) hypertension; N40.1 Benign prostatic hyperplasia with lower urinary tract symptoms; R35.1 Nocturia; Z87.891 Personal history of nicotine dependence
CPT/HCPCS: 36415; 70450; 70544; 70548; 70551; 71045; 80048; 80061; 83036; 84443; 84484; 85025; 85610; 85730; 93005; 93306; 97161; 97166; 97802; 99285; A9585; Q9957; A4216

== ENCOUNTER 2018-09-18 15:20 | Outpatient (RCR) | payer MEDICARE, OTHER, SELFPAY ==
[2018-09-14 22:13] VITALS: BMI 29.3
--- NOTE | 2018-09-18 15:57 | HP.PTEVAL_ITS ---
Patient's Visit Information ELYSE MALONEY is a 82 year old M referred to Physical Therapy by JANA Driver with a diagnosis of BPPV. Date of Evaluation: 09/18/18 Physical Therapist: Guero De Los Santos, ORACIOT, OCS, CSCS - Visit Plan Plan: No PT required at this point. No vestibular cause to dizzyness noted, possibly medication induced as he started muscle relaxers prior to onset - Subjective Findings: One week ago got LBP and went to doctor to get muscle relaxers, felt woozy getting up Monday night. alexia went out and had busy day, during the night got worse woozyness/unsteadyness. Went to ER via squad and had HTN. 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 Therapy girls saw him and did Isabella maneuver. Sent for therapy here adn will see ENT next week. Will f/u with his family doctor. Currently feels much better. Used cane for the weekend but has gotten rid of it. 90% BETTER. Steady enough to get around, no falls. Sleeping OK. No spinnign, just unsteady. Activities are pretty normal. says he acannot drive yet. - Objective Walks well adn trasnfers without UE today. C/s AROM is WFL and without symptoms today. - B hallpike. - roll test. Oculomotor is unremarkable: - skew eye deviation. convergence looks OK. pursuit,saccades adn VOR are normal and asymptomatic. - head thrust. Balance is about normal for age or well above normal today on FGA. - Balance Scores Functional Gait Assessment Score: 28 % Disability: 6.6700 CATSIB Score (Max score 120 seconds): 98 - Rehabilitation Potential Physical Therapy Diagnosis: No vestibular cause to dizzyness noted, possibly medication induced as he started muscle relaxers prior to onset - Anticipated Interventions Thank you for the opportunity to evaluate your patient. For Medicare and Medicare HMO plans, please review the plan of care and approve it. It will need to be FAXED BACK to us at [phone] for Medicare purposes. For Medicare only, by signing this I certify the plan of care. Please let me know if there are questions or concerns regarding this plan of care. Physician Signature: ____Date:
--- OUTSIDE RECORDS SUMMARY | 2018-11-20 21:33 | XMS RPT_ITS ---
:1935 Author Organization OHIP Care Team Providers Name Role Phone ANG SMITH Referring Unavailable ANG SMITH Attending Unavailable ANG SMITH Referring Unavailable ANG SMITH Referring Unavailable ANG SMITH Attending Unavailable ANG SMITH Attending Unavailable Ang Smith Primary Care Unavailable [place] Admitting Unavailable [place], [place] Attending Unavailable Lindy Brownh S. Consulting Unavailable [place], [place] Admitting Unavailable Jarrodtsil, [place] Attending Unavailable Ang Smith Primary Care Unavailable Sean Brownnath S. Consulting Unavailable [place], [place] Consulting Unavailable [place], [place] Admitting Unavailable DAYRON DriverC Attending Unavailable Ang Smith Primary Care Unavailable Rancho Brown Consulting Unavailable [place], [place] Consulting Unavailable JANA Driver Attending Unavailable Ang Smith Primary Care Unavailable JANA Driver Referring Unavailable PROBLEMS PROBLEMS DATE TYPE CONDITION / CODE ATTENDING STATUS SOURCE 09/12/2018 Active Unknown / SARAH, Javid [facility] UNK(Unknown) SUSANA [facility] [place] Repository 12/05/2017 Active Other hot oiler NA Active [facility] (current) drug [facility] [place] therapy / Repository Z79.899(ICD-10) PROCEDURES PROCEDURES No Procedure Records FoundRESULTS RESULTS CONSULTATION Observed: 09/21/2018 Status: F Source: [place] 1:49 PM [facility] REPOSITORY [facility] Medical Records Department [address] [place] [address] Consultation 09/14/18 1455 MR#: [id number] Acct: [id number] Name: ELYSE MUNIZ Rep #: [id number] : 1935 82 From: Rancho Brown MD PCP: Ang Smith MD Status: DIS IN Y [id number] Problem List (1) Dizziness Status: Acute Reason [...] management Code Visit Inpatient E AND M: 52383 Init Hosp L3 09/21/18 1349 <Electronically signed by Rancho Brown MD> Date Rancho Brown MD Cosigner Signature (if applicable): Date CC: Latoya Brown MD; Ang Smith MD Signed INITAL EVALUATION (1) Observed: 09/19/2018 Status: F Source: [place] - PT 7:09 AM [facility] REPOSITORY [facility] Physical Therapy [address] [place] [address] / REHABILITATION SERVICES INITIAL EVALUATION MR#: [id number] Acct: [id number] Name: ELYSE MUNIZ Rep #: [id number] : 1935 82 From: Guero De Los [...] to be FAXED BACK to us at [phone] for Medicare purposes. For Medicare only, by [...] 09/17/2018 Status: F Source: [place] 9:42 AM [facility] REPOSITORY [facility] Cardiovascular Services [address] [place] [address] 12 Lead EKG 09/14/18 0901 MR#: [id number] Acct: [id number] Name: ELYSE MUNIZ Rep #: [id number] : 1935 82 From: Newton Palmer MD Attending Dr: Donna Fowler MD Status: DIS IN Ordering Dr: Marck Ho MD Date: 09/14/18 Location: [facility] Sex: M C Admitted: 09/14/18 Test Reason : DIZZINESS Blood Pressure : / mmHG Vent. Rate : 051 BPM Atrial Rate : 051 BPM P-R Int : 176 ms QRS Dur : 090 ms QT Int : 392 ms P-R-T Axes : 019 -02 037 degrees QTc Int : 361 ms Sinus bradycardia Otherwise normal ECG Confirmed by ALEC WORKMAN, NEWTON ([id number]), mapping editor NATHALIE DOMINGUEZ ([id number]) on 09/17/2018 9:41:48 AM Referred By: SHANON Confirmed By:NEWTON PALMER MD 09/17/18 0941 Date Newton Palmer MD CC: Donna Fowler MD; Marck Ho MD; Ang Smith MD Signed DISCHARGE SUMMARY Observed: 09/16/2018 Status: F Source: [place] 11:48 AM [facility] Medical Records Department [address] [place] [address] Discharge Summary 09/15/18 1408 MR#: [id number] Acct: [id number] Name: ELYSE MUNIZ Rep #: [id number] : 1935 82 From: iLsa BATES PCP: Ang Smith MD Status: DIS IN Y Location: [place] [address] <Lisa Howard - Last Filed: 09/15/18 14:14> [...] Martin Chavez MD at 9:34 EST Tel [phone], Service support , Chest X-Ray 09/14/18 09:25 IMPRESSION: Normal x-ray examination of the chest. Electronically Signed: Martin Chavez MD at 9:38 EST Tel [phone], Service support , Brain MRI 09/14/18 10:56 [...] Diagnoses (Choose all that apply): None applicable <[place] - Last Filed: 09/16/18 11:47> Discharge Date [...] -330 Code Visit OBSV E AND M: 31390 Observation care discharge 09/15/18 5065 <Electronically signed by Lisa BATES> Date Lisa Howard SCANNING SUPERVISOR-C 09/16/18 1148<Electronically signed by Donna Fowler MD> Cosigner Signature (if applicable): Date Donna Fowler MD CC: SCANNING SUPERVISORUnruly Howard; Donna Fowler MD; Guero Ray MD; Ang Smith MD Signed DISCHARGE INSTRUCTION Observed: 09/15/2018 Status: F Source: [place] 10:58 [facility] REPOSITORY [facility] Medical Records Department [address] [place] [address] Instructions for Home/Discharge Instructions 09/15/18 1050 MR#: [id number] Acct: [id number] Name: ELYSE MUNIZ Eliane Rep #: [id number] : 1935 82 From: Lisa BATES PCP: [...] F Source: [place] PROFILE (BMP) 6:05 AM [facility] REPOSITORY TYPE CODE TESTS RESULT OUT OF [...] 4 Performed By: #### L500.2500, L500.4100 #### [facility] Laboratory [address] [place], [address] LIPID PROFILE Collected: 09/15/2018 Status: F Source: [place] 6:05 AM [facility] REPOSITORY TYPE CODE TESTS RESULT OUT OF [...] 23 Performed By: #### L500.2500, L500.4100 #### [facility] Laboratory [address] [facility] [place], [address] HISTORY AND PHYSICAL Observed: 09/14/2018 Status: F Source: [place] EXAM 4:56 PM [facility] REPOSITORY [facility] Medical Records Department [address] [place] [address] History and Physical 09/14/18 1034 MR#: [id number] Acct: [id number] Name: ELYSE MUNIZ Rep #: [id number] : 1935 82 From: Donna Fowler MD PCP: Ang Smith MD Status: ADM IN Y Location: [place] [address] Problem List (1) TIA (transient ischemic attack) [...] with movement, had problems with his balance. [place] as if he was drunk. Denied any [...] with movement, had problems with his balance. [place] as if he was drunk. Denied any [...] Sc Code Visit OBSV E AND M: 26854 Initial observation care L3 09/14/18 1656 <Electronically signed by Donna Fowler MD> Date Donna Fowler MD Cosigner Signature: Date (if applicable) CC: Donna Fowler MD; Ang Smith MD Signed TROPONIN-I Collected: 09/14/2018 Status: F Source: [place] 3:50 PM [facility] REPOSITORY Order Comment: 'TROP' Serial specimen #1, #2 or #3: 3 TYPE CODE TESTS RESULT OUT OF RANGE REFERENCE UNITS LAB L501.4010 <0.045 ng/mL Normal 0.017 TROPONIN-I Result Comment: TROPONIN-I EXPECTED VALUES <0.045 Negative 0.045 - 0.590 Consistent with Cardiac Damage > OR = 0.600 Critical Value Not every elevated troponin is indicative of OK. These values should be used with clinical judgement in examining the patient's clinical picture for diagnosis. To establish a diagnosis of OK versus myocardial injury, there must be a demonstrated rise and/or fall in the troponin values, in addition to ischemic symptoms, EKG changes, new regional wall motion abnormality, and/or angiographical evidence. PLEASE NOTE: REFERENCE RANGES EDITED 18 Performed By: #### L501.4010 #### [facility] Laboratory [address] [facility] [place], [address] EMERGENCY DEPARTMENT Observed: 09/14/2018 Status: F Source: [place] SUMMARY 3:45 PM [facility] REPOSITORY [facility] Medical Records Department [address] [facility] [place] [address] Emergency Department Summary 09/14/18 1008 MR#: [id number] Acct: [id number] Name: ELYSE MUNIZ Rep #: [id number] : 1935 82 From: Marck Ho MD [...] 2. Bradycardia This note was generated with Telepo dictation software. It may contain incorrect words, [...] your Primary Care Provider. Call [facility] ([phone]) or report to the closest Emergency Room. Call 911 if necessary. 09/14/18 1545 <Electronically signed by Marck Ho MD> Date Marck Ho MD Cosigner Signature (If Indicated): Date CC: Ang Smith MD ECHOCARDIOGRAM COMPLETE Observed: 09/14/2018 Status: F Source: [place] 2:50 PM [facility] REPOSITORY [facility] Cardiovascular Services [address] [place] [address] Echo Complete 09/14/18 1340 MR#: [id number] Acct: [id number] Name: ELYSE MUNIZ Rep #: [id number] : 1935 82 From: Newton Palmer MD Attending Dr: Donna Fowler MD Status: ADM IN Ordering Dr: Donna Fowler MD Date: 09/14/18 Location: [facility] Sex: M C Admitted: 09/14/18 Reason For [...] Date Dictated: 09/14/18 1340 Date Transcribed: 09/14/181449 Web Systems Developer: Signed TROPONIN-I Collected: 09/14/2018 Status: F Source: [place] 12:20 PM [facility] REPOSITORY Order Comment: 'TROP' Serial specimen #1, #2 or #3: 2 TYPE CODE TESTS RESULT OUT OF RANGE REFERENCE UNITS LAB L501.4010 <0.045 ng/mL Normal < 0.015 TROPONIN-I Result Comment: TROPONIN-I EXPECTED VALUES <0.045 Negative 0.045 - 0.590 Consistent with Cardiac Damage > OR = 0.600 Critical Value Not every elevated troponin is indicative of OK. These values should be used with clinical judgement in examining the patient's clinical picture for diagnosis. To establish a diagnosis of OK versus myocardial injury, there must be a demonstrated rise and/or fall in the troponin values, in addition to ischemic symptoms, EKG changes, new regional wall motion abnormality, and/or angiographical evidence. PLEASE NOTE: REFERENCE RANGES EDITED 18 Performed By: #### L501.4010 #### [facility] Laboratory [address] [place], [address] BRAIN WITHOUT Observed: 09/14/2018 Status: F Source: [place] CONTRAST 10:57 AM [facility] REPOSITORY [facility] Imaging Services [address] [place] [address] Brain without Contrast MR#: [id number] Acct: [id number] Name: ELYSE MUNIZ Rep #: [id number] : 1935 M 82 From: Ricardo Copeland MD PCP: Ang Smith MD Status: ADM IN Study: Brain without Contrast Date of Exam: 09/14/18 Exam# [id number] Ordering Dr: Donna Fowler MD STUDY: MRI [...] CC: Donna Fowler MD; Ang Smith MD Web Systems Developer: Signed MRA HEAD ONLY WITHOUT Observed: 09/14/2018 Status: F Source: [place] CONTRAST 10:57 AM [facility] REPOSITORY [facility] Imaging Services [address] [place] [address] MRA Head ONLY without Contrast MR#: [id number] Acct: [id number] Name: ELYSE MUNIZ Rep #: [id number] : 1935 M 82 From: Ricardo Copeland MD PCP: Ang Smith MD Status: ADM IN Study: MRA Head ONLY without Contrast Date of Exam: 09/14/18 Exam# [id number] Ordering Dr: Donna Fowler MD STUDY: MRA OF THE HEAD WITHOUT CONTRAST REASON FOR EXAM: Male, 82 years old. Lightheaded and dizzy since Monday TECHNIQUE: 3-D qnmm-vy-ztilsz (TOF) imaging was performed with MIPs. The [...] There is no demonstrated aneurysm of the venetie ira of [place]. There is no major vessel occlusion or hemodynamically significant stenosis. There is no demonstrated abnormality of the visualized brain. 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 Tortuous basilar artery. Otherwise unremarkable exam. Electronically Signed: Ricardo Copeland MD at 16:23 EST , Service support , CC: Donna Fowler MD; Ang Smith MD Web Systems Developer: Signed MRA NECK WITH Observed: 09/14/2018 Status: F Source: [place] CONTRAST 10:57 AM [facility] REPOSITORY [facility] Imaging Services [address] [place] [address] MRA Neck WITH Contrast MR#: [id number] Acct: [id number] Name: ELYSE MUNIZ Rep #: [id number] : 1935 M 82 From: Ricardo Copeland MD PCP: Ang Smith MD Status: ADM IN Study: MRA Neck WITH Contrast Date of Exam: 09/14/18 Exam# [id number] Ordering Dr: Donna Fowler MD STUDY: MRA NECK WITH AND WITHOUT CONTRAST REASON FOR EXAM: Male, 82 years old. Lightheaded and dizziness TECHNIQUE: 3-D tsdd-sr-dgnpna (TOF) imaging was performed in an 1.5 [...] CC: Donna Fowler MD; Ang Smith MD Web Systems Developer: Signed CBC W/DIFF, AUTOMATED Collected: 09/14/2018 Status: F Source: [place] 9:05 AM [facility] REPOSITORY TYPE CODE TESTS RESULT OUT OF [...] Lymph 1.29 Performed By: #### L100.0100 #### [facility] Laboratory [address] [place], [address] PROTHROMBIN TIME W/INR Collected: 09/14/2018 Status: F Source: [place] 9:05 AM [facility] REPOSITORY TYPE CODE TESTS RESULT OUT OF RANGE REFERENCE UNITS LAB L300.4150 11.7-14.9 SECONDS Normal PROTIME 13.3 LAB L300.4200 Normal INR 1.0 Performed By: #### L300.3900, L300.4310 #### [facility] Laboratory [address] [facility] [place], [address] PARTIAL THROMBOPLAST Collected: 09/14/2018 Status: F Source: [place] TIME 9:05 AM [facility] REPOSITORY TYPE CODE TESTS RESULT OUT OF RANGE REFERENCE UNITS LAB L300.4310 24.1-36.2 Seconds Normal PTT 31.8 Performed By: #### L300.3900, L300.4310 #### [facility] Laboratory [address] [facility] [address] BASIC METABOLIC Collected: 09/14/2018 Status: F Source: [place] PROFILE (BMP) 9:05 AM [facility] REPOSITORY TYPE CODE TESTS RESULT OUT OF [...] 7 Performed By: #### L500.2500, L501.4010 #### [facility] Laboratory [address] [place], [place], [address] TROPONIN-I Collected: 09/14/2018 Status: F Source: [place] 9:05 AM [facility] REPOSITORY TYPE CODE TESTS RESULT OUT OF RANGE REFERENCE UNITS LAB L501.4010 <0.045 ng/mL Normal < 0.015 TROPONIN-I Result Comment: TROPONIN-I EXPECTED VALUES <0.045 Negative 0.045 - 0.590 Consistent with Cardiac Damage > OR = 0.600 Critical Value Not every elevated troponin is indicative of OK. These values should be used with clinical judgement in examining the patient's clinical picture for diagnosis. To establish a diagnosis of [place] versus myocardial injury, there must be a demonstrated rise and/or fall in the troponin values, in addition to ischemic symptoms, EKG changes, new regional wall motion abnormality, and/or angiographical evidence. PLEASE NOTE: REFERENCE RANGES EDITED 18 Performed By: #### L500.2500, L501.4010 #### [facility] Laboratory [address] [place], [place], [address] THYROID STIM HORMONE Collected: 09/14/2018 Status: F Source: [place] (TSH) 9:05 AM [facility] REPOSITORY Order Comment: Comments: as add on test TYPE CODE TESTS RESULT OUT OF RANGE REFERENCE UNITS LAB L501.9520 0.358-3.74 uIU/mL Normal TSH 1.26 Performed By: #### L501.9520 #### [facility] Laboratory [address] [place], [address] HEMOGLOBIN A1C Collected: 09/14/2018 Status: F Source: [place] 9:05 AM [facility] REPOSITORY Order Comment: Comments: as add on test TYPE CODE TESTS RESULT OUT OF RANGE REFERENCE UNITS LAB L501.9985 4.2-6.3 % Normal HGB A1C 5.7 Performed By: #### L501.9985 #### [facility] Laboratory [address] [place], [address] BRAIN/HEAD WITHOUT Observed: 09/14/2018 Status: F Source: [place] CONTRAST 9:00 AM [facility] REPOSITORY [facility] Imaging Services [address] [place] [address] Brain/Head without Contrast MR#: [id number] Acct: [id number] Name: ELYSE MUNZI Rep #: [id number] : 1935 M 82 From: Martin Chavez MD PCP: Ang Smith MD Status: REG ER Study: Brain/Head without Contrast Date of Exam: 09/14/18 Exam# [id number] Ordering Dr: Marck Ho MD STUDY: CT [...] Martin Chavez MD at 9:34 EST Tel [phone], Service support , CC: Marck Ho MD; Ang Smith MD Web Systems Developer: Signed CHEST 1 VIEW Observed: 09/14/2018 Status: F Source: [place] 9:00 AM [facility] REPOSITORY [facility] Imaging Services [facility] [place] [address] Chest 1 View MR#: [id number] Acct: [id number] Name: ELYSE MUNIZ Rep #: [id number] : 1935 [facility] From: Martin Chavez MD PCP: Ang Smith MD Status: REG ER Study: Chest 1 View Date of Exam: 09/14/18 Exam# [id number] Ordering Dr: Marck Ho MD STUDY: X-RAY [...] Martin Chavez MD at 9:38 EST Tel [phone], Service support , CC: Marck Ho MD; Ang Smith MD Web Systems Developer: Signed PROGRESS Observed: 09/12/2018 Status: COMPLETED Source: [place] 12:50 PM [facility] [place] REPOSITORY HNO ID: [id number] Author: Ang Smith Service: (none) Author Type: Physician Type: Progress Notes Filed: 09/12/2018 1:01 PM Note Text: This note was created using Tablo. Subjective Patient presents with: Right shoulder pain: [...] MD CNOV Observed: 09/12/2018 Status: COMPLETED Source: [place] 11:00 AM [facility] REPOSITORY Office Visit (INTMWS) ELYSE MUNIZ ([id number]) 1935 M Date Time Provider Department 09/12/18 11:00 AM ANG SMITH During your visit today, we recorded the following information about you: Temperature Pulse Respiration Blood pressure 98.2 degrees 64/minute 12/minute 148/74 Weight 91.6 kg Ang Smith MD 09/12/2018 1:01 PM Signed This note was created using GridCureriter. Subjective Patient presents with: Right shoulder pain: [...] 09/12/18 PROGRESS Observed: 06/28/2018 Status: COMPLETED Source: [place] 5:11 PM [facility] REPOSITORY HNO ID: [id number] Author: Ang Smith Service: (none) Author Type: Physician Type: Progress Notes Filed: 06/28/2018 5:17 PM Note Text: This note was created using Tablo. Subjective Elyse Muniz was doing well. His [...] MD CNOV Observed: 06/28/2018 Status: COMPLETED Source: [place] 4:20 PM [facility] REPOSITORY Office Visit (INTMWS) ELYSE MUNIZ ([id number]) 1935 M Date Time Provider Department 06/28/18 [...] PANEL, BASIC Collected: 06/26/2018 Status: F Source: [place] 7:48 AM [facility] REPOSITORY TYPE [...] Desk Reference: National Heart, Lung, and Blood [place]. National Institutes of Health. 2001: NIH Publication No. 01-3305. 2. An International Atherosclerosis Society position paper: global recommendations for the management of dyslipidemia: executive summary, Atherosclerosis. 2014: 232(2):410-413. Performed By: #### LIPB #### [facility] [address] [place] [address] CNPTOUTREAINES Observed: 06/12/2018 Status: COMPLETED Source: [place] 12:00 AM [facility] REPOSITORY Patient Outreach (FAMPST) ELYSE MUNIZ ([id number]) 1935 M Date Time Provider Department 06/12/18 [facility] SMITH [facility] During your visit today, we recorded the following information about you: Allergies As of Date: 06/12/2018 (No Known Allergies) Date Reviewed: 12/06/2017 Reviewed by: Elaine Jackson LPN - Fully Assessed Visit Diagnosis:Medication management [Z79.899] Order(s):LIPID PANEL BASIC [SQLIPB] Order #: [id number] FUTURE Prescriptions as of 06/12/2018 Sig: COMPOUNDED [...] changes [R23.4] INVALID FOR*06/07/2017 Encounter Status:Closed by [employer] PRODUSER on 07/13/18 PROGRESS Observed: 12/06/2017 Status: COMPLETED Source: [place] 6:24 PM [facility] REPOSITORY HNO ID: [id number] Author: Ang Smith Service: (none) Author Type: Physician Type: Progress Notes Filed: 12/06/2017 6:26 PM Note Text: This note was created using GridCureriter. Subjective Elyse Muniz is a 82 year old male here for follow up. He was doing well. He was no longer taking finasteride. All his medications are from the [facility] in [place]. He was asking about PSA testing. I advised him that this is probably being done at the [facility]. His hypertension, lipids, and obstructive sleep apnea [...] MD CNOV Observed: 12/06/2017 Status: COMPLETED Source: [place] 4:40 PM [facility] REPOSITORY Office Visit (INTMWS) ELYSE MUNIZ ([id number]) 1935 M Date Time Provider Department 12/06/17 4:40 PM ANG SMITH INTJenniferWS During your visit today, we recorded the following information about you: Temperature Pulse Respiration Blood pressure 97.7 degrees 68/minute 18/minute 132/70 Weight 91.2 kg Ang Smith MD 12/06/2017 5:03 PM Signed Have [facility] lab results and medication record sent here or bring with you when you come for follow up. Ang Smith MD 12/06/2017 6:26 PM Signed This note was created using GridCureriter. Subjective Elyse Muniz is a 82 year old male here for follow up. He was doing well. He was no longer taking finasteride. All his medications are from the [facility] in [place]. He was asking about PSA testing. I advised him that this is probably being done at the [facility]. His hypertension, lipids, and obstructive sleep apnea [...] Ang Smith MD Referring Provider: ANG SMITH [[id number]] Allergies As of Date: 12/06/2017 (No Known [...] FOR*06/07/2017 Other instructions from your clinician: Have [facility] lab results and medication record sent here [...] METABOLIC PANL Collected: 12/05/2017 Status: F Source: [place] 12:02 PM [facility] REPOSITORY TYPE CODE TESTS RESULT OUT OF REFERENCE UNITS RANGE LAB GLU 74-99 mg/dL Glucose 98 Result Comment: The [place] Diabetes Association (ADA) provides guidance for cutoff [...] Standards of Medical Care in Diabetes 2016, [place] Diabetes Association. Diabetes Care. 2016.39(Suppl 1). LAB [...] has been calibrated to be traceable to IDTN. An eGFR <60 mL/min/1.73m2 for >3 months is consistent with chronic kidney disease. Refer to KDOQI guidelines for clinical interpretation. In patients with unstable renal function, e.g. those with acute kidney injury, the eGFR may not accurately reflect actual GFR. Performed By: #### BMP #### [facility] [address] [place] [address] CAITLINTOUTREACH Observed: 11/21/2017 Status: COMPLETED Source: [place] 12:00 AM [facility] REPOSITORY Patient Outreach (INTMWH) ELYSE MUNIZ ([id number]) 1935 M Date Time Provider Department 11/21/17 ANG SMITH [facility] During your visit today, we recorded the following information about you: Allergies As of Date: 11/21/2017 (No Known Allergies) Date Reviewed: 06/07/2017 Reviewed by: Krissy Holden LPN - Fully Assessed Visit Diagnosis:Medication management [Z79.899] Order(s):BASIC METABOLIC PNL [SQBMP] Order #: [id number] FUTURE Prescriptions as of 11/21/2017 Sig: COMPOUNDED [...] [R23.4] INVALID FOR*06/07/2017 Encounter Status:Closed by AFIA IVDAL on 06/08/18 CNCO Observed: 10/13/2017 Status: COMPLETED Source: [place] 12:00 AM [facility] REPOSITORY Letter Text [address] [place] [address] [phone] 10/13/2017 Elyse Muniz [address] [address] Dear Mr. Muniz: Due to a change in the provider's schedule, it has been necessary to reschedule your appointment. Enclosed please find a new appointment reminder that will replace the one previously sent to you. If this appointment is not convenient for you, please contact our office at [phone]. Thank you for choosing the [facility] as your Healthcare Provider. Sincerely, Appointment Office Department of Internal Medicine Enclosure ALLERGIES ALLERGIES DATE TYPE / CODE NAME / CODE REACTION SEVERITY SOURCE 09/14/2018 Drug No Known Unknown [facility] Allergy/416 Allergies/[id number] Hospital [id number](SNOM 0388(RXNORM) Repository ED CT) Drug NO KNOWN [facility] [facility] Class/73611 ALLERGIES Main [place] 1003(SNOMED Repository CT) ENCOUNTERS ENCOUNTERS ADMIT/DISCHARGE ACCOUNT ADMITTING ENCOUNTER LOCATION SOURCE NUMBER CLASS 09/18/2018 [id number] Ambulatory [facility] ing:PT Repository 09/14/2018/09/15/19 [id number] [place] 19 Encounter [facility] ing:PCURoom: Repository [id number]: 1 09/14/2018 [id number] [place] Ambulatory BMSBuilding:Nani Arnold MS.[facility] Repository 09/14/2018 [id number] [place] Ambulatory BMSBuilding:Nani Arnold MS.[facility] Repository 09/12/2018/09/13/19 [id number] Ambulatory [address] Repository 06/28/2018/06/29/20 [id number] Ambulatory [address] Repository 06/26/2018/06/26/20 [id number] Ambulatory [address] Repository 12/06/2017/12/07/19 [id number] Ambulatory [address] Repository 12/05/2017 [id number] Ambulatory [facility] Repository PAYERS PAYERS ENCOUNTER GUARANTOR PAYER SUBSCRIBER SOURCE 09/18/2018 ELYSE J Primary ELYSE J [place] [id number] DEER Insurance:MEDICARE SHEADOB: [facility] CITLALI KUMAR, PART A BPolicy [id number] [address]Ogo: Number: Repository [id number] () Date:2002-11-26 09/18/2018 Secondary ELYSE J [place] Insurance:GOVERNMENT SHEADOB: Community PERSONNEL [id number] Repository [id number] Date:2018-09-17 [address], [place] [address]RP: 09/18/2018 Tertiary NOT GIVENUNK [place] Insurance:SELF PAY [facility] Number: Effective Repository Date:2018-09-17 09/14/2018 ELYSE J Primary ELYSE J [place] [id number] DEER Insurance:MEDICARE SHEADOB: [facility], PART A [facility] [id number] General Hospital [address]Eob: Number: Repository [id number] (HP) Date:2018-09-14 09/14/2018 Secondary ELYSE J [place] Insurance:GOVERNMENT SHEADOB: [facility] [id number] Hospital Number: Repository [id number] Date:2018-09-14[address], [place] [address]MW: 09/14/2018 Tertiary NOT GIVENUNK [place] Insurance:SELF PAY [facility] Number: Effective Repository Date:2018-09-14 09/14/2018 ELYSE J Primary ELYSE J [place] [id number] DEER Insurance:MEDICARE SHEADOB: [facility], PART A [facility] [id number] General Hospital [address]Vvh: Number: Repository [id number] (HP) Date:2018-09-14 09/14/2018 Secondary ELYSE J [place] Insurance:[facility]ERNMENT [facility] [id number] Hospital Number: Repository [id number] Date:2018-09-14 [address], [place] [address]ZX: 09/14/2018 Tertiary NOT GIVENUNK [place] Insurance:SELF PAY [facility] Number: Effective Repository Date:2018-09-14 09/14/2018 ELYSE J Primary ELYSE J [place] [id number] DEER Insurance:MEDICARE SHEADOB: [facility], PART A [facility] [id number] General Hospital [address]Fvk: Number: Repository [id number] (HP) Date:2018-09-14 09/14/2018 Secondary ELYSE J [place] Insurance:GOVERNMENT [facility]HEADOB[facility] [id number] Hospital Number: Repository [id number] Date:2018-09-14[address] [address]TN: 09/14/2018 Tertiary NOT GIVENUNK [place] Insurance:SELF PAY [facility] Number: Effective Repository Date:2018-09-14
== END 2018-09-18 19:00 | disposition home or self-care (01) ==
LOC: PT 15:20
PROVIDERS: Family Provider Internal Medicine; PCP Internal Medicine; Visit Provider Internal Medicine
DX: H81.10 Benign paroxysmal vertigo, unspecified ear (principal)
CPT/HCPCS: 97161

== ENCOUNTER → 2020-04-10 08:35 | Outpatient (CLI) | payer MEDICARE, OTHER, SELFPAY ==
[2018-09-14 22:13] VITALS: BMI 29.3
--- NOTE | 2020-04-10 09:58 | NEURO ---
NCS and/or EMG Patient Report Ordering Doctor: Elliot Wu DATE OF SERVICE: 04/10/20 Indication: Approximately 5 years of pain and intermittent numbness involving the first 3 digits of the left hand. 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 Evaluate for median neuropathy across the left wrist. Findings: Nerve conduction studies were performed in the left upper extremity. The left median motor study recording the abductor pollicis brevis showed a normal amplitude, prolonged distal latency and mildly slowed conduction velocity. The left ulnar motor study recording the abductor digiti minimi showed a normal amplitude, normal distal latency and normal conduction velocity. No conduction block or focal slowing was present across the elbow. The left median sensory response recording digit two showed a reduced amplitude, prolonged latency and borderline conduction velocity. The left ulnar sensory response recording digit five showed a normal amplitude, latency and conduction velocity. The left radial sensory response recording over the extensor snuff box showed a normal amplitude, latency and conduction velocity. Left median-ulnar mixed palmar latencies showed a normal median latency compared to the ulnar. Needle EMG of the left upper extremity and cervical paraspinal muscles was performed. Active denervation was present in the left abductor pollicis brevis. No denervation was seen in any other muscle. The left abductor pollicis brevis muscle demonstrated motor units which were large amplitude, long duration, and mildly polyphasic with a slightly reduced recruitment pattern. All other motor unit morphology, activation and recruitment patterns were normal. Impression: This is an abnormal study. 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 The pathophysiology primarily demyelination with some secondary axonal loss. These findings would be compatible with a clinical diagnosis of carpal tunnel syndrome. In addition, there is no electrophysiologic evidence of superimposed cervical radiculopathy or other entrapment neuropathy in either upper extremity. Jeffery Drew D.O.
== END ==
PROVIDERS: PCP Internal Medicine; Referring Provider Physician Assistant; Visit Provider Physician Assistant
DX: R20.2 Paresthesia of skin (principal)
CPT/HCPCS: 95886; 95910

== ENCOUNTER → 2020-04-29 08:36 | Outpatient (CLI) | payer MEDICARE, OTHER, SELFPAY ==
[2018-09-14 22:13] VITALS: BMI 29.3
--- NOTE | 2020-04-29 08:39 | EKG12_ITS ---
Test Reason : PRE OP Blood Pressure : / mmHG Vent. Rate : 101 BPM Atrial Rate : 125 BPM P-R Int : 000 ms QRS Dur : 080 ms QT Int : 304 ms P-R-T Axes : 000 005 057 degrees QTc Int : 394 ms Atrial fibrillation with premature ventricular or aberrantly conducted complexes Abnormal ECG Confirmed by ALEC WORKMAN, DEVYN ([id number]), purchasing expeditor LISSY GLEZ ([id number]) on 04/30/2020 11:00:39 AM Referred By: Altaf Zaidi Confirmed By:DEVYN MICHAEL MD
== END ==
PROVIDERS: PCP Internal Medicine; Referring Provider Orthopaedic Surgery; Visit Provider Orthopaedic Surgery
DX: Z01.810 Encounter for preprocedural cardiovascular examination (principal); Z01.818 Encounter for other preprocedural examination
CPT/HCPCS: 93005

== ENCOUNTER 2020-04-29 09:06 | Emergency (ER) | payer MEDICARE, OTHER, SELFPAY ==
[2018-09-14 22:13] VITALS: BMI 29.3
[2020-04-29 09:07] VITALS: BP 159/87; PULSE 108; RESP 18; TEMP 36.6; O2SAT 99; BMI 28.3
--- NOTE | 2020-04-29 09:16 | RAD_ITS ---
STUDY: X-RAY CHEST REASON FOR EXAM: Male, 84 years old. Patient was here for pre surgery screening and they found him in A-FIB, sent him to the ER TECHNIQUE: Single AP portable view of the chest. COMPARISON: Comparison is made with prior examination dated 09/14/2018. FINDINGS: EKG electrodes are seen. Stable minimal increased markings at the left lung base suggests left linear scarring. There is no demonstrated pleural abnormality. There is mild cardiac enlargement. Normal mediastinum and queta. Normal visualized pulmonary arteries. There is atherosclerotic tortuosity of the aortic arch and descending thoracic aorta. Normal visualized thoracic spine. Normal visualized ribs, clavicles, and shoulders. There is no demonstrated abnormality of the visualized soft tissue structures of the upper abdomen. RAD/Chest 1 View (Portable) IMPRESSION: Mild cardiomegaly. Mild stable scarring at the left lung base. Electronically Signed: Martin Chavez, at 9:57 EDT , Service support ,
--- NOTE | 2020-04-29 09:28 | ED.DCSUM_ITS ---
- ER Visit Summary Date of Service: 04/29/20 Chief Complaint: Atrial fibrillation History of Present Illness: The patient is a [address] Vickers. He went to a preop visit today for a left carpal tunnel surgery scheduled in [address] Nieto. He was found to be in atrial fibrillation. Patient does not have a history of this. He denies any associated chest pain or shortness of breath. No nausea or vomiting. He is not experiencing palpitations. Review of systems: General: No fever, chills, cold sweats. Cardiovascular: No chest pain, palpitations. Respiratory: No cough, shortness of breath, dyspnea on exertion. Gastrointestinal: No abdominal pain, nausea, vomiting, diarrhea, melena, or hematochezia. Genitourinary: No dysuria, frequency, hematuria. Skin: No rash. Neuro: No headache, numbness, weakness. Physical Examination: Vitals: Stable. Afebrile. General: Well-nourished and well-developed. Head: Normocephalic atraumatic. Neck: Supple, no lymphadenopathy. No JVD. Nontender. Cardiovascular: Tachycardic irregular rhythm. No murmurs. Respiratory: No respiratory distress. Clear to auscultation bilaterally. Abdominal: Soft, nontender, nondistended, normal bowel sounds. No guarding, rebound, or peritoneal signs. Back: Nontender. Extremities: Nontender, no edema. Skin: Normal color, no rash. Neurologic: Alert and oriented ?3. Cranial nerves II through XII are intact. Normal strength and sensation. Psych: Normal affect. Test Results: EKG shows A. fib at 101 with a PVC and nonspecific ST changes. It is changed from August of last year. At that time he was in sinus rhythm. CBC shows eosinophils of 6. Chem-7 shows a BUN of 19 and glucose 108. TSH is normal. Troponin is negative. Clinical Impression(s) from Imaging Studies Chest X-Ray 04/29/20 09:16 IMPRESSION: Mild cardiomegaly. Mild stable scarring at the left lung base. Electronically Signed: Martin Chavez, at 9:57 EDT , Service support , Emergency Department Course and Treatment: Patient had an IV placed. He was given 5 mg of Lopressor IV and 25 mg of Lopressor p.o. He was given aspirin p.o. heart rate is now in the 70s. However, he remains in atrial fibrillation. Blood pressure is 137/97. Treatment Plan: Patient was discussed with Dr. Palmer. He has a chads 2 score of 2. At this time we will hold anticoagulation. He will be discharged on Toprol- XL 25 mg daily. He scheduled for an appointment with May 08 at 10:45 AM. Return to the emergency department for any worsening symptoms. Disposition: To home in improved and stable condition. Impression: 1. Atrial fibrillation. 2. Mild cardiomegaly. This note was generated with [employer] dictation software. It may contain incorrect words, spelling, and punctuation that were not noted in review of the chart prior to signing ED Disposition - Plan for ED Patient: Instructions: ED Paroxysmal Atrial Flutter Prescriptions: Metoprolol Succinate [Toprol Xl] 25 mg PO DAILY #30 tab.er.24h Referrals: Newton Palmer MD [STAFF PHYSICIAN] - 05/08/20 10:45 am
[2020-04-29 09:37] VITALS: O2SAT 100
[2020-04-29 09:56] LABS: Absolute Lymphocyte Count 1.46 X10^3/uL (0.83-4.51); Absolute Neutrophil Count 4.1 X10^3/uL (2.0-7.7); Basophil# 0.07 X10^3/uL; Eosinophils% 5.9 % (0-5); Hematocrit 40.5 % (40-54); Hemoglobin 14.3 g/dL (13.0-16.5); Lymphocyte # 1.46 X10^3/ul (4.0); Lymphocyte % 21.7 % (19-41); Mean Corp Hgb Conc 35.3 g/dL (32-36); Mean Corpuscular Hgb 32.7 pg (27.0-32.0); Mean Corpuscular Volume 92.7 fL (80-94); Mean Platelet Vol. 9.5 fl (6.2-12.0); Monocyte# 0.66 X10^3/uL; Monocyte% 9.8 % (0-10); NRBC Flagged by Analyzer 0 % (0-5); Platelet Count 194 K/mm3 (150-450); RBC Distribution Width CV 13.2 % (11.6-14.6); Red Blood Count 4.37 M/mm3 (4.6-6.2); White Blood Count 6.7 K/mm3 (4.4-11.0)
[2020-04-29] MEDS: Metoprolol Tartrate 25 MG Tablet PO (09:58)
[2020-04-29] MEDS: Metoprolol Tartrate 5 MG/5 ML Vial IV (09:58)
[2020-04-29] MEDS: Aspirin 81 MG TAB.CHEW 324 MG PO (09:58)
[2020-04-29 10:07] VITALS: BP 137/97; PULSE 71; RESP 16; O2SAT 96
[2020-04-29 10:12] LABS: Anion Gap 4 (5-15); BUN 19 mg/dL (7-18); BUN/Creat Ratio 18.4 RATIO (10-20); Calcium,Total 9.6 mg/dL (8.5-10.1); Chloride 103 mmol/L (98-107); Creatinine, Serum 1.03 mg/dL (0.70-1.30); EST Glomerular Filtration Rate 73 mL/min (>60); Est Glom Filt Rate - Afr Amer 89 mL/min (>60); Estimated Creatinine Clearance 57.09 ml/min; Glucose 108 mg/dL (74-106); Potassium 4.1 mmol/L (3.5-5.1); Sodium Level 137 mmol/L (136-145)
[2020-04-29 10:51] VITALS: BP 137/97; PULSE 71; RESP 16; O2SAT 96
== END 2020-04-29 10:51 | disposition home or self-care (01) ==
LOC: ED 09:32
PROVIDERS: Emergency Provider Emergency Medicine; PCP Internal Medicine
DX: I48.91 Unspecified atrial fibrillation (principal); I51.7 Cardiomegaly; Z79.82 Long term (current) use of aspirin; Z01.810 Encounter for preprocedural cardiovascular examination; Z01.818 Encounter for other preprocedural examination
CPT/HCPCS: 71045; 80048; 84443; 84484; 85025; 93005; 99285; A4216

== ENCOUNTER → 2020-05-15 06:00 | Outpatient (CLI) | payer MEDICARE, OTHER, SELFPAY ==
[2020-05-06 08:51] VITALS: BMI 29.2
--- NOTE | 2020-05-15 06:00 | ECHOD_ITS ---
Reason For Study: AFib/Flutter Procedure This was a 2D Doppler, Color Flow transthoracic echocardiogram. Exam performed in department. Left Ventricle Normal LV size. The estimated ejection fraction is 50 %. Left ventricular systolic function is lower limits of normal. Mid-Posterior: Mildly hypokinetic. Basal inferoseptal: Hypokinetic. Posterior- Basal: Hypokinetic. Mid-Inferior: Mildly hypokinetic. Infero-Basal: Severely Hypokinetic. Right Ventricle Normal RV size. Normal systolic function. Atria The left atrium is mildly enlarged. The right atrium is mildly enlarged. Mitral Valve Mild focal mitral valve calcification. Mild (1+) eccentric mitral valve insufficiency. Tricuspid Valve Normal tricuspid valve. Mild (1+) tricuspid valve insufficiency. Pulmonary artery systolic pressure is 37 mmHg. Aortic Valve Trisinus/trileaflet aortic valve. Great Vessels Normal aortic root. The pulmonary artery is normal size. Normal inferior vena cava. Pericardium/Pleural No pericardial effusion. MMode/2D Measurements & Calculations LVIDd: 4.9 cm IVSd: 0.91 cm Ao root diam: 3.9 cm LVIDs: 3.4 cm LVPWd: 1.2 cm LA dimension: 4.6 cm RVDd: 3.2 cm FS: 31.2 % LAV(MOD-bp): 82.7 ml LA A4 area: 24.1 cm2 RA A4 area: 20.7 cm2 LAV(MOD-bp) Indexed: 39.3 ml/m2 LAV(MOD-sp2): 87.0 ml LAV(MOD-sp4): 77.8 ml Doppler Measurements & Calculations MV E max rachael: 76.0 cm/sec MV V2 max: 87.4 cm/sec MV P1/2t max rachael: 87.1 cm/sec MV max P.1 mmHg MV P1/2t: 62.0 msec MV V2 mean: 46.4 cm/sec MV mean P.0 mmHg MV dec slope: 411.2 cm/sec2 MV V2 VTI: 19.8 cm MVA(P1/2t): 3.5 cm2 Ao V2 max: 106.7 cm/sec LV V1 max: 70.2 cm/sec MR max rachael: 504.7 cm/sec Ao max P.6 mmHg LV V1 max P.0 mmHg MR max P.9 mmHg MR mean rachael: 389.6 cm/sec MR mean P.5 mmHg MR VTI: 174.6 cm PA V2 max: 92.2 cm/sec PI end-d rachael: 124.2 cm/sec TR max rachael: 287.8 cm/sec TR max P.1 mmHg Interpretation Summary Normal LV size. The estimated ejection fraction is 50 %. Left ventricular systolic function is lower limits of normal. The left atrium is mildly enlarged. Mild (1+) eccentric mitral valve insufficiency. Pulmonary artery systolic pressure is 37 mmHg. Ordering Physician: Newton Palmer Referring Physician: Ang Vickers M.D. Performed By: Rodolfo Mcpherson RCS
--- NOTE | 2020-05-15 11:30 | STRESSREP ---
Stress Test Report Pharmacologic myocardial perfusion stress test. 84-year-old man with a history of atrial fibrillation. Stress protocol: Resting EKG demonstrates atrial fibrillation with a rate of 81 bpm normal intervals are noted resting blood pressure is 142/88 mmHg. 0.4 mg of regadenoson was infused per usual protocol. The maximum heart rate attained was 93 bpm which was in atrial fibrillation. The maximum workload was 1 metabolic equivalent. At rest there were no ST or T wave changes noted to suggest abnormal flow reserve and at peak infusion nonspecific ST-T wave changes were noted with no meet the criteria for ischemia. The resting blood pressure was 142/88 with a final blood pressure 130/80 mmHg. Myocardial perfusion protocol. 11.8 mCi of technetium 99m sestamibi was injected at rest. 0.4 mg of regadenoson was infused per usual protocol. At peak infusion 33.3 mCi of technetium 99m sestamibi was injected stress images were obtained stress and rest images were reconstructed and compared in the short axis vertical long horizontal long axis. Gated images were also obtained. Perfusion SPECT analysis: Review of the stress images demonstrate normal perfusion noted in the septum anterior wall and lateral wall. There is a small area of reduced perfusion noted in the inferior wall with mild improvement suggestive of possible mild mid inferior ischemia. The rest of the cross appear to be well perfused. Gated SPECT analysis: The gated ejection fraction is 59%. Conclusion: Abnormal pharmacologic stress test with mild mid inferior ischemia present. Preserved ejection fraction.
== END ==
PROVIDERS: PCP Internal Medicine; Referring Provider Internal Medicine Cardiovascular Disease; Visit Provider Internal Medicine Cardiovascular Disease
DX: I48.91 Unspecified atrial fibrillation (principal); I48.92 Unspecified atrial flutter; R06.00 Dyspnea, unspecified
CPT/HCPCS: 78452; 93017; 93306; A9500; A4216; J2785

== ENCOUNTER 2020-05-25 07:32 | Day surgery (SDC) | payer MEDICARE, OTHER, SELFPAY ==
[2020-05-06 08:51] VITALS: BMI 29.2
[2020-05-22 09:20] VITALS: BMI 29.2
--- NOTE | 2020-05-25 11:03 | CL.D_ITS ---
Patient Name: ELYSE MALONEY Study Date: 05/25/2020 Performing: Newton Palmer MD Ht: 70.07 inches 178 cm : 1935 Wt: 205.03 lbs 93 kg Age: 84 Gender: male BSA: 2.11 PROCEDURE(S) PERFORMED TQ75-ZOP/COR/LV CLINICAL PROFILE AND INDICATIONS Indications: Suspected CAD Heart Failure: None Stress/Imaging Date: 05/15/2020Stress Test with SPECT MPI: Positive Intermediate Risk CAD Presentations: No Sxs, no angina. CONCLUSIONS Moderate calcification noted of the left anterior descending artery. RECOMMENDATIONS Medical therapy Patient can proceed with carpal tunnel surgery. After that the patient will be seen electively, plac ed on anticoagulation, and considered for DC cardioversion DESCRIPTION OF PROCEDURE The patient arrived to the procedure lab. The risks and benefits of the procedure as well as a full d escription of our services here and current unavailability of surgical backup were fully explained to the patient and/or their significant other prior to the catheterization. The Timeout was completed, verifying the correct patient and procedure. The patient's procedural site was prepped and draped in the usual fashion. Local anesthetic was given subcutaneously to right radial region with Lidocaine 2% . Using a modified Seldinger technique, arterial access was obtained via the right radial artery, a 6 Fr sheath was inserted. Left Coronary Artery selective angiography was performed in multiple views u sing a 5 Fr. 4.0 [place] catheter. Right Coronary Artery selective angiography was then performed in mu ltiple views using a 5 Fr. 4.0 [place] catheter. Left Ventriculography was performed in CHAVEZ projection using a 5 Fr. Pigtail catheter. LV to AO pullback pressures were then recorded.The arterial sheath was pulled and a TR Band was applied for hemostasis 9cc air CORONARY ANGIOGRAPHY DOMINANCE: Right Dominant LEFT HEART ASSESSMENT Left Ventricular Ejection Fraction: by LV Gram 55 % Normal LV wall motion Normal Left Ventricular systolic function LEFT MAIN: Mild calcification LEFT ANTERIOR DESCENDING ARTERY: Diffusely diseased up to 60 % MID LAD: Moderate calcification DIAGONAL 1: Proximal - Moderate luminal irregularities up to 50% CIRCUMFLEX ARTERY: Mild luminal irregularities less than 30% RIGHT CORONARY ARTERY: Mild luminal irregularities less than 30% COMPLICATIONS No Complications PROCEDURE MEDICATIONS Fentanyl 50 mcg IV Versed 1 mg IV Oxygen: 2 L/min via nasal cannula Heparin diluted in 23cc Heparinized saline. Patient given 10cc IA of this solution. 05/25/2020 10:36: 17 Verapamil 2.5mg, Ntg 100mcgs, 2000 units of Heparin diluted in 23cc Heparinized saline. Patient give n 10cc IA of this solution. 05/25/2020 10:36:17 SUMMARY OF HEMODYNAMIC DATA Time AIR REST ECG 07:54:17 AO 121/79 (96) SA 10:39:29 LV 128/3, 9 10:48:08 LV 128/0, 5 10:48:13 LV 119/6, 9 10:48:58 LVp 122/8, 12 10:49:09 AOp 130/75 (100) 10:49:14 Signed By Newton Palmer MD On 05/25/2020 11:02:29 Newton Palmer MD
== END 2020-05-25 12:40 | disposition home or self-care (01) ==
LOC: CLSP 07:33
PROVIDERS: PCP Internal Medicine; Referring Provider Internal Medicine Cardiovascular Disease; Visit Provider Internal Medicine Cardiovascular Disease
DX: I25.10 Atherosclerotic heart disease of native coronary artery without angina pectoris (principal); I48.91 Unspecified atrial fibrillation; I10 Essential (primary) hypertension; E78.5 Hyperlipidemia, unspecified; M19.90 Unspecified osteoarthritis, unspecified site; N40.1 Benign prostatic hyperplasia with lower urinary tract symptoms; R35.1 Nocturia; G47.33 Obstructive sleep apnea (adult) (pediatric); Z79.82 Long term (current) use of aspirin; Z79.02 Long term (current) use of antithrombotics/antiplatelets; Z79.899 Other long term (current) drug therapy; Z87.891 Personal history of nicotine dependence; Z96.642 Presence of left artificial hip joint
CPT/HCPCS: 93458; 99152; 99153; J7040; C1769; C1894; Q9967

== ENCOUNTER 2020-07-13 10:24 | Day surgery (SDC) | payer MEDICARE, OTHER, SELFPAY ==
[2020-07-08 15:37] VITALS: BMI 29.2
[2020-07-10 08:33] VITALS: BMI 29.2
--- NOTE | 2020-07-13 06:51 | HP_ITS ---
HPI HPI History of Present Illness Surgical H&P: Yes Details: Pleasant 84-year-old man who was scheduled for carpal tunnel surgery. He was noted on preoperative testing to be in atrial fibrillation with a ventricular response rate of 101 bpm. This was completely unbeknownst to him. An EKG in August 2018 demonstrated him to be in sinus rhythm. He does have evidence of a previous possible TIA, ISAAC with CPAP therapy, hypertension, and hyperlipidemia. He did have an episode of dizziness in 2019. He denies chest, arm, jaw, or neck discomfort. His exercise tolerance is stable. He denies symptoms of CHF, palpitations, lightheadedness, dizziness, near syncope, or syncopal episodes. He denies edema or claudication issues. He denies orthopnea, PND, fever, chills, blood in urine, blood in stool, myalgia, or unexplainable fatigue. Intake Vital Signs 07/08/20 Height 5 ft 10 in 07/08/20 Weight: 204 lb 07/08/20 BP 140/70 H 07/08/20 Blood Pressure Location Lt brachial 07/08/20 Position Sitting 07/08/20 Respiration 14 07/08/20 Pulse 84 07/08/20 Pulse Source Monitor Intake Visit Reasons: 6 wk f/up Allergies No Known Allergies Allergy (Verified 05/06/20 08:51) Medications Finasteride 5 mg PO DAILY 09/14/18 [History Confirmed 07/08/20] Multivitamin [Once Daily] 1 ea PO DAILY 09/14/18 [History Confirmed 07/08/20] simvastatin 40 mg tablet 40 mg PO QHS 05/05/20 [History Confirmed 07/08/20] lisinopril 20 mg-hydrochlorothiazide 12.5 mg tablet 1 tab PO BID tab 05/06/20 [History Confirmed 07/08/20] metoprolol succinate 50 mg tablet,extended release 24 hr 50 mg PO DAILY #90 tab 05/13/20 [Rx Confirmed 07/08/20] aspirin 81 mg chewable tablet 81 mg PO DAILY@0800 #30 tab 05/18/20 [Rx Confirmed 07/08/20] apixaban 5 mg tablet 5 mg PO BID #60 tab 06/15/20 [Rx Confirmed 07/08/20] PFS Medical History Atherosclerotic heart disease of [place] coronary artery without angina pectoris (Chronic) New onset atrial fibrillation (Acute 04/29/20) Essential (primary) hypertension (Chronic) Hyperlipidemia (Chronic) Actinic keratoses (Chronic) BPH associated with nocturia (Chronic) Carpal tunnel syndrome (Chronic) Obstructive sleep apnea (Chronic) Osteoarthritis (Chronic) 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) TIA (transient ischemic attack) (Ruled-out 09/14/18) Surgical History History of left heart catheterization (Resolved 05/25/20) History of repair of rotator cuff (Resolved) History of total knee arthroplasty (Resolved) History of total left hip replacement (Resolved 2011) Family History Father Heart disease Social History (Updated 07/09/20 @ 08:36 by Aguilar Carrion NP, ROOFER APPRENTICE-C) Smoking Status: Former smoker alcohol intake: current ROS Const Const: Negative for fatigue, weakness, body ache, fever(s) or chills ENT ENT: Negative for dizziness Cardio Chest Pain: No Palpitations: No Edema: None Muscle aches with walking: None Resp Respiratory: Negative for SOB with activity, SOB at rest, SOB orthopnea\SOB lying down or paroxysmal nocturnal dyspnea GI GI: Negative nausea, vomiting blood/hematemesis, bright, red blood in stools or black,tarry stools : Negative for hematuria or frequent nighttime urination/ nocturia Musc Musc: Negative for muscle aches/ myalgia Skin Skin: Negative non-healing lesions or rash Neuro Neuro: Negative for dizziness, lightheadedness, near syncope, syncope, orthostatic symptoms or weakness Endo Endo: Negative for fatigue Allergy Allergy/Immunology: Negative for rash Cardiology Exam Const Appearance: cooperative, healthy appearing, comfortable and no acute distress Nutritional Appearance: well nourished and overweight Orientation: alert, awake and oriented x3 Head Head: normal to inspection Ears: hearing grossly normal bilaterally Nose: external nose normal Face and Sinus: face symmetric Mouth: oral mucosae normal Eyes General: appearance normal, both eyes and all related structures Eyelids: eyelids normal EOM: EOM intact bilaterally Neck Neck: normal visual inspection and no JVD Carotids: normal carotid upstroke Chest Chest inspection: normal inspection of the chest, symmetric chest movement and normal respiratory effort; negative cough Auscultation: Bilateral: Clear to Auscultation Cardio Rate: regular rate Rhythm: irregularly irregular Heart sounds: S1 normal and S2 normal; negative rub, gallop or murmur GI GI: normal to inspection Neuro General: alert, awake, oriented x3 and CN's II-XI intact bilaterally Skin Skin: no rashes or lesions noted Extremities Pulses: Normal: Right Posterior Tibial Pulse, Left Posterior Tibial Pulse, Right Radial Pulse, Left Radial Pulse Lower Extremity Edema: None: Bilateral Psych Psychological: normal affect Assessment & Plan 1. New onset atrial fibrillation I48.91 Plan Patient's EKG continues show atrial fibrillation. His rate today was noted be 84 bpm. He has been on oral anticoagulation consistently for a minimum of 3 weeks without interruption. His most recent echocardiogram in April 2020 showed ejection fraction of 50% and mildly enlarged left and right atrium. He is relatively asymptomatic from an atrial fibrillation standpoint. However, he is willing to proceed with cardioversion in an attempt to maintain sinus rhythm. He recent underwent laboratory testing from [facility]. These labs will be requested in preparation of cardioversion. He return to office in approximately 1 month to evaluate overall progress. Orders Orders: 12 Lead EKG performed by [facility] 07/08/20 Cardioversion 07/08/20 2. Atherosclerosis of [place] coronary artery of [place] heart without angina pectoris I25.10 Plan Patient underwent a stress test in April 2020 that was considered to be abnormal. He proceeded to undergo a heart catheterization on 05/25/2020 that showed ejection fraction of 55% and moderate calcification noted of the LAD. No intervention was carried out. Patient denies any chest pain, arm pain, jaw pain, neck pain, shortness of breath, or fatigue suggestive of angina at this time. We will continue to monitor. We will not make any medication regimen changes and will continue risk factor modification. Orders Orders: Cardioversion 07/08/20 3. Essential hypertension I10 Plan Patient's blood pressure is well-controlled. We will continue to monitor. We will not make any medication regimen changes. Orders Orders: Cardioversion 07/08/20 4. Hyperlipidemia, unspecified hyperlipidemia type E78.5 Plan He will continue current statin medication. Orders Orders: Cardioversion 07/08/20 Plan Detail Other Medications New: apixaban 5 mg PO BID 60 tabs 12RF Additional Comments Thank you for allowing us to participate in the patients plan of care, if you have any questions please do not hesitate to call. This note was generated using a voice recognition system and there may be incorrect words, spelling or punctuation that were not noted when reviewing the office note prior to saving. 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 transplanted heart: [place] heart Essential hypertension I10 Hyperlipidemia, unspecified hyperlipidemia type E78.5 ??Hyperlipidemia type: unspecified Coding Level of Care Code Off vis,est,level 4 Diagnoses New onset atrial fibrillation I48.91 Atherosclerosis of [place] coronary artery of [place] heart without angina pectoris I25.10 ??[place] vs. transplanted heart: [place] heart Essential hypertension I10 Hyperlipidemia, unspecified hyperlipidemia type E78.5 ??Hyperlipidemia type: unspecified Supplemental Info Supplemental Information Heart catheterization from 05/25/2020: CONCLUSIONS Moderate calcification noted of the left anterior descending artery. RECOMMENDATIONS Medical therapy Patient can proceed with carpal tunnel surgery. After that the patient will be seen electively, placed on anticoagulation, and considered for DC cardioversion CORONARY ANGIOGRAPHY DOMINANCE: Right Dominant LEFT HEART ASSESSMENT Left Ventricular Ejection Fraction: by LV Gram 55 % Normal LV wall motion Normal Left Ventricular systolic function LEFT MAIN: Mild calcification LEFT ANTERIOR DESCENDING ARTERY: Diffusely diseased up to 60 % MID LAD: Moderate calcification DIAGONAL 1: Proximal - Moderate luminal irregularities up to 50% CIRCUMFLEX ARTERY: Mild luminal irregularities less than 30% RIGHT CORONARY ARTERY: Mild luminal irregularities less than 30% Echocardiogram from 05/15/2020: Interpretation Summary Normal LV size. The estimated ejection fraction is 50 %. Left ventricular systolic function is lower limits of normal. The left atrium is mildly enlarged. Mild (1+) eccentric mitral valve insufficiency. Pulmonary artery systolic pressure is 37 mmHg. Stress test on 05/15/2020: Conclusion: Abnormal pharmacologic stress test with mild mid inferior ischemia present. Preserved ejection fraction. Diagnostics Electrocardiogram 07/08/20 Echocardiogram 05/15/20 Stress Test Nuclear Medicine 05/15/20 Stress Test 05/15/20 Cardiac Catheterization 05/25/20 Chest X-Ray 04/29/20
--- NOTE | 2020-07-13 12:12 | CARDIOVERS ---
Cardioversion Cardioversion: DC cardioversion. 84-year-old man with a history of chronic persistent atrial fibrillation. The patient was brought to the cardiac catheterization lab in the postabsorptive nonsedated state. It was confirmed that the patient had been compliant with his anticoagulation. He was seen by Dr. Wang of the critical care division. Informed consent was obtained. Anterior posterior pads were applied. The patient was then administered 40 mg of intravenous propofol. 200 J of synchronized DC cardioversion energy were applied with prompt reversal to sinus rhythm. EKG confirmed the above. Conclusion: Successful DC cardioversion to sinus rhythm. Continue current medication including anticoagulation. Follow-up in my office.
--- NOTE | 2020-07-13 12:14 | PRO.PCM_ITS ---
Procedure Report Date of Procedure: 07/13/20 CONSCIOUS SEDATION REPORT DATE OF SERVICE: July 13, 2020 BRIEF HISTORY OF PRESENT ILLNESS: The patient is an 84-year-old male who presented to [facility] for an elective outpatient cardioversion due to underlying atrial fibrillation. The patient denies ever having undergone a prior cardioversion. He denies any known adverse reactions to anesthesia in the past. He is systemically anticoagulated on Eliquis. His last surface echocardiogram revealed an ejection fraction of approximately 50%. The patient does have a known history of obstructive sleep apnea, but reports compliance with the use of nocturnal CPAP therapy. PHYSICAL EXAMINATION: VITAL SIGNS: Reviewed and were acceptable. GENERAL: The patient is a male, in no apparent distress, speaking in full sentences. HEENT: Normocephalic, atraumatic. Mucous membranes are moist and pink. Good mouth opening noted. Trachea is midline. Good neck mobility. CHEST: S1, S2 irregularly irregular. No murmurs, rubs or gallops were noted. LUNGS: Clear to auscultation bilaterally without appreciable wheezes, rales or rhonchi. ABDOMEN: Soft, nontender, nondistended. Positive bowel sounds. EXTREMITIES: There is no clubbing, cyanosis or edema. ASA Class: II DESCRIPTION OF PROCEDURE: After confirmation of informed consent, the patient's anesthesia plan was reviewed in detail. Propofol was chosen. Risks and benefits were reviewed and the patient agreed to proceed. At 1202, the patient was given 40 mg of propofol. The patient achieved an appropriate level of sedation and was given a 200 joule synchronized cardioversion by Dr. Palmer at the bedside. This was successful in achieving normal sinus rhythm. The patient was monitored until 1213, at which time he reached his baseline mental status and function. The patient tolerated the procedure well. COMPLICATIONS: None ESTIMATED BLOOD LOSS: None RECOMMENDATIONS: Okay to recover in usual fashion. [id number]: Other Procedure See Report - [id number]
== END 2020-07-13 13:15 | disposition home or self-care (01) ==
LOC: CLSP 10:25
PROVIDERS: PCP Internal Medicine; Referring Provider Internal Medicine Cardiovascular Disease; Visit Provider Internal Medicine Cardiovascular Disease
DX: I48.91 Unspecified atrial fibrillation (principal); I25.10 Atherosclerotic heart disease of native coronary artery without angina pectoris; I10 Essential (primary) hypertension; E78.5 Hyperlipidemia, unspecified; N40.1 Benign prostatic hyperplasia with lower urinary tract symptoms; R35.1 Nocturia; G47.33 Obstructive sleep apnea (adult) (pediatric); Z79.82 Long term (current) use of aspirin; Z79.01 Long term (current) use of anticoagulants; Z87.891 Personal history of nicotine dependence; Z96.642 Presence of left artificial hip joint
CPT/HCPCS: 92960; 93005; J7040

== ENCOUNTER 2021-06-05 08:29 | Emergency (ER) | payer MEDICARE, OTHER, SELFPAY ==
[2021-06-05 08:31] VITALS: BP 142/89; PULSE 83; RESP 16; TEMP 36.1; O2SAT 93; BMI 27.9
--- NOTE | 2021-06-05 09:03 | CT_ITS ---
STUDY: CT BRAIN WITHOUT CONTRAST REASON FOR EXAM: Male, 85 years old. Weakness RADIATION DOSAGE (If Supplied By Facility): CTDIvol = ( 44.99 ) mGy, DLP = ( 829.85 ) mGycm TECHNIQUE: Transaxial CT imaging of the brain was performed without administration of intravenous contrast material. Individualized dose optimization techniques were used for this CT. COMPARISON: No relevant priors. FINDINGS: Normal soft tissue structures. Normal calvarium. There is mild cerebral atrophy with widening of the extra-axial spaces and ventricular dilatation. Normal white matter tracts of the cerebral hemispheres. Normal basal ganglia and thalami. Normal brainstem. Normal cerebellum. There is no intracranial hemorrhage. There are no findings of an acute ischemic infarction. Mucosal thickening of the cross of the right maxillary sinus consistent with chronic sinusitis. CT/Brain/Head without Contrast IMPRESSION: Chronic involutional changes of the brain. Electronically Signed: Eliseo Han MD at 9:56 EDT Tel , Service support ,
--- NOTE | 2021-06-05 09:04 | EKG12_ITS ---
Test Reason : Blood Pressure : / mmHG Vent. Rate : 072 BPM Atrial Rate : 054 BPM P-R Int : 000 ms QRS Dur : 094 ms QT Int : 362 ms P-R-T Axes : 000 -05 029 degrees QTc Int : 396 ms Atrial fibrillation Abnormal ECG Confirmed by ALEC WORKMAN, DEVYN ([id number]), photograph editor LISSY GLEZ ([id number]) on 06/08/2021 9:38:05 AM Referred By: BERNICE Confirmed By:DEVYN MICHAEL MD
--- NOTE | 2021-06-05 09:06 | EX.ED.DYSGE1 ---
HPI History of Present Illness Chief Complaint: Dizziness Informant: patient Onset/Context/Timing Onset: Yesterday Context: Gradual Onset Timing: Continuous Quality: Off balance Location: Generalized Worsened by: Nothing Relieved by: Nothing Narrative Narrative: Patient presents with lightheadedness and off-balance feeling that began last night. Patient states he was helping his son-in-law work on a deck. Patient states he was doing a lot of bending and crawling. Patient states that later that evening he started feeling off balance when he got up to walk to the bathroom. Patient denies any headaches. Patient states nothing makes it worse and nothing makes it better. Patient denies any spinning sensation. Patient denies any tinnitus or hearing changes. 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) TIA (transient ischemic attack) (09/14/18) Home Medications finasteride 5 mg PO DAILY 09/14/18 [History Last Taken 09/13/18] multivitamin 1 ea PO DAILY 09/14/18 [History Last Taken 09/13/18] simvastatin 40 mg tablet 40 mg PO QHS 05/05/20 [History Last Taken Unknown] lisinopril 20 mg-hydrochlorothiazide 12.5 mg tablet 1 tab PO BID tab 05/06/20 [History Last Taken 07/13/20] metoprolol succinate 50 mg tablet,extended release 24 hr 50 mg PO DAILY #90 tab 05/13/20 [Rx Last Taken 07/13/20] aspirin 81 mg chewable tablet 81 mg PO DAILY@0800 #30 tab 05/18/20 [Rx Last Taken 07/13/20] apixaban 5 mg tablet 5 mg PO BID #60 tab 06/15/20 [Rx Last Taken 07/13/20] diazepam 2 mg PO TID PRN PRN #10 tablet 06/05/21 [Rx Last Taken Unknown] tamsulosin [Flomax] 0.4 mg PO DAILY 06/05/21 [History Last Taken Unknown] Allergy/AdvReac Type Severity Reaction Status Date / Time No Known Allergies Allergy Verified 06/05/21 08:31 Family History Father Heart disease Surgical History History of cardioversion (07/13/20) History of carpal tunnel release (10/2020) History of left heart catheterization (05/25/20) History of repair of rotator cuff History of total knee arthroplasty History of total left hip replacement (2011) Social History Smoking Status: Never smoker alcohol intake: current ROS ROS ED Constitutional Constitutional ED: Denies chills or fever(s) Eyes Eyes: Denies blurry vision or change in vision ENT ENT ED: Denies rhinorrhea or sore throat Cardiovascular Cardiovascular: Denies chest pain or palpitations Respiratory/Chest Respiratory/Chest: Denies cough or dyspnea Gastrointestinal Gastrointestinal: Denies nausea or vomiting Genitourinary Genitourinary ED: Denies dysuria or hematuria Musculoskeletal Musculoskeletal: Denies back pain or neck pain Integumentary Denies abscess or rash Neurologic Neurologic: Denies headache(s) or weakness Allergic/Immunologic Allergic/Immunologic ED: Denies mouth swelling or urticaria EXAM Physical Exam Const Vital Signs: 06/05/21 08:31 06/05/21 08:46 06/05/21 09:21 Temperature 97 F L Temperature Source Temporal Pulse Rate 83 Pulse Rate [Lying] 70 Pulse Rate [Sitting] 76 Pulse Rate [Standing] 83 Respiratory Rate 16 Respiratory Effort Normal Non-Labored Respiratory Pattern Normal Blood Pressure 142/89 H Blood Pressure [Lying] 116/78 Blood Pressure [Sitting] 129/87 H Blood Pressure [Standing] 125/86 H Blood Pressure Mean 106 Blood Pressure Mean [Lying] 90 Blood Pressure Mean [Sitting] 101 Blood Pressure Mean [Standing] 99 Pulse Ox 93 Oxygen Delivery Method Room Air 06/05/21 11:52 Temperature Temperature Source Pulse Rate 68 Pulse Rate [Lying] Pulse Rate [Sitting] Pulse Rate [Standing] Respiratory Rate 14 Respiratory Effort Respiratory Pattern Blood Pressure 140/79 H Blood Pressure [Lying] Blood Pressure [Sitting] Blood Pressure [Standing] Blood Pressure Mean 99 Blood Pressure Mean [Lying] Blood Pressure Mean [Sitting] Blood Pressure Mean [Standing] Pulse Ox 98 Oxygen Delivery Method Room Air Positive well nourished and well developed General Appearance ED: well developed HEENT Reports moist mucous membranes Eyes PERRL Eyes Narrative: There is some nystagmus noted with lateral gaze to the right Neck supple and no JVD Resp normal respiratory effort and clear to auscultation bilaterally Cardio regular rate, regular rhythm and no murmurs GI normal to inspection, nondistended, normoactive bowel sounds and non-tender Palpation: soft Extremity normal to inspection General Extremety ED: Negative for edema or tenderness General Extremity: Negative for edema Neuro oriented x3, CN's II-XII intact bilaterally and no sensory deficits noted Neuro Narrative: Savita-Hallpike maneuver was negative. Sensorium / Orientation: alert Motor Exam: strength 5/5 throughout Psych mental status grossly normal Skin no rashes or lesions noted MDM MDM MDM Narrative Medical decision making narrative: Patient was given IV fluids. Patient was given a dose of meclizine here. CT scan of the brain was obtained. There is no acute intracranial abnormality noted. CBC and comprehensive metabolic profile was within normal limits. Patient was still unsteady on his feet. Patient's talked to her daughter who is a nurse and requested that a magnesium test be done. This was ordered and was normal. Patient was given a dose of Valium. Patient was able to stand and ambulate without difficulty. Patient was given a prescription for Valium to take as needed. Patient was instructed to follow-up with his primary care physician in 5 to 7 days. Patient was instructed to stand up slowly. Patient understood and was agreeable with the plan. All questions were answered. Lab Data Attestation: I reviewed the patient's lab results. Labs: Laboratory Results - last 24 hr 06/05/21 06/05/21 06/05/21 08:50 08:50 10:56 WBC 5.9 RBC 4.29 L Hgb 13.6 Hct 40.1 MCV 93.5 MCH 31.7 MCHC 33.9 RDW Std Deviation 44.3 H RDW Coeff of Riccardo 13.0 Plt Count 216 MPV 9.6 Immature Gran % (Auto) 0.500 Neut % (Auto) 57.2 Lymph % (Auto) 24.9 [place] % (Auto) 9.6 Eos % (Auto) 6.8 H Baso % (Auto) 1.0 Absolute Neuts (auto) 3.4 Absolute Lymphs (auto) 1.47 Nucleated RBC % 0 Sodium 138 Potassium 4.3 Chloride 104 Carbon Dioxide 27.0 Anion Gap 7 BUN 22 H Creatinine 1.03 Estim Creat Clear Calc 56.11 Est GFR (MDRD) Af Amer 89 Est GFR (MDRD) Non-Af 73 BUN/Creatinine Ratio 21.4 H Glucose 111 H Calcium 9.6 Magnesium 2.0 Total Bilirubin 0.50 AST 17 ALT 22 Alkaline Phosphatase 87 Troponin I High Sens 16 Total Protein 7.1 Albumin 3.1 L Globulin 4.0 Albumin/Globulin Ratio 0.8 L POC Glucose 06/05/21 12:08 WBC RBC Hgb Hct MCV MCH MCHC RDW Std Deviation RDW Coeff of Riccardo Plt Count MPV Immature Gran % (Auto) Neut % (Auto) Lymph % (Auto) [place] % (Auto) Eos % (Auto) Baso % (Auto) Absolute Neuts (auto) Absolute Lymphs (auto) Nucleated RBC % Sodium Potassium Chloride Carbon Dioxide Anion Gap BUN Creatinine Estim Creat Clear Calc Est GFR (MDRD) Af Amer Est GFR (MDRD) Non-Af BUN/Creatinine Ratio Glucose Calcium Magnesium Total Bilirubin AST ALT Alkaline Phosphatase Troponin I High Sens Total Protein Albumin Globulin Albumin/Globulin Ratio POC Glucose 105 Radiography Diagnostic Testing: Clinical Impression(s) from Imaging Studies Brain CT 06/05/21 09:03 IMPRESSION: Chronic involutional changes of the brain. Electronically Signed: Eliseo Han MD at 9:56 EDT Tel , Service support , EKG Initial EKG: Attestation: I personally reviewed and interpreted this EKG as follows: Interpretation: No Acute Injury Pattern and Atrial Fibrillation (72) Prior EKG tracings: available for review Prior: Unchanged (07/20/2020) Discharge Plan Triage Chief Complaint: Dizziness ED Provider: Guero Escalera Dx/Rx/DC Orders Clinical Impression: Vertigo Instructions: ED Vertigo, Unspecified Prescriptions: New diazepam [diazepam] 2 MG tablet 2 mg PO TID PRN PRN (Reason: Vertigo) Qty: 10 RF: 0 No Action simvastatin 40 mg tablet 40 mg PO QHS RF: 0 multivitamin 1 EACH tablet 1 ea PO DAILY RF: 0 finasteride 5 MG tablet 5 mg PO DAILY RF: 0 lisinopril-hydrochlorothiazide 20-12.5 mg tablet 1 tab PO BID RF: 0 aspirin 81 mg tablet,chewable 81 mg PO DAILY@0800 Qty: 30 RF: 1 tamsulosin [Flomax] 0.4 mg Capsule 0.4 mg PO DAILY RF: 0 metoprolol succinate [Toprol XL] 50 mg tablet extended release 24 hr 50 mg PO DAILY Qty: 90 RF: 3 Eliquis 5 mg tablet 5 mg PO BID Qty: 60 RF: 12 Primary Care Provider: Ang Vickers Referrals: Ang Vickers MD [Primary Care Provider] - 3-5 Days Disposition Disposition: Home, Self Care
[2021-06-05 09:11] LABS: Absolute Lymphocyte Count 1.47 X10^3/uL (0.83-4.51); Absolute Neutrophil Count 3.4 X10^3/uL (2.0-7.7); Basophil# 0.06 X10^3/uL; Eosinophils% 6.8 % (0-5); Hematocrit 40.1 % (40-54); Hemoglobin 13.6 g/dL (13.0-16.5); Lymphocyte # 1.47 X10^3/ul (0.83-4.51); Lymphocyte % 24.9 % (19-41); Mean Corp Hgb Conc 33.9 g/dL (32-36); Mean Corpuscular Hgb 31.7 pg (27.0-32.0); Mean Corpuscular Volume 93.5 fL (80-94); Mean Platelet Vol. 9.6 fl (6.2-12.0); Monocyte# 0.57 X10^3/uL; Monocyte% 9.6 % (0-10); NRBC Flagged by Analyzer 0 % (0-5); Neutrophil # 3.38 X10^3/uL (2.7-7.7); Neutrophil % 57.2 % (47-70); Platelet Count 216 K/mm3 (150-450); RBC Distribution Width SD 44.3 fl (35.1-43.9); Red Blood Count 4.29 M/mm3 (4.6-6.2); White Blood Count 5.9 K/mm3 (4.4-11.0)
[2021-06-05] MEDS: Meclizine HCl 25 MG Tablet PO (09:12)
[2021-06-05 09:21] VITALS: BP 116/78; BP 125/86; BP 129/87; PULSE 70; PULSE 76; PULSE 83
[2021-06-05 09:25] LABS: ALB/GLOB Ratio 0.8 RATIO (0.9-2.4); AST(SGOT) 17 U/L (15-37); Alanine Aminotransfer ALT/SGPT 22 U/L (16-61); Albumin, Serum 3.1 g/dL (3.2-5.0); Alkaline Phosphatase 87 U/L (45-117); Anion Gap 7 (5-15); BUN 22 mg/dL (7-18); BUN/Creat Ratio 21.4 RATIO (10-20); Calcium,Total 9.6 mg/dL (8.5-10.1); Chloride 104 mmol/L (98-107); Creatinine, Serum 1.03 mg/dL (0.70-1.30); EST Glomerular Filtration Rate 73 mL/min (>60); Est Glom Filt Rate - Afr Amer 89 mL/min (>60); Estimated Creatinine Clearance 56.11 ml/min; Glucose 111 mg/dL (74-106); Potassium 4.3 mmol/L (3.5-5.1); Protein, Total 7.1 g/dL (6.4-8.2); Sodium Level 138 mmol/L (136-145); Troponin-I HS 16 pg/mL (3.0-78.0)
--- NOTE | 2021-06-05 11:16 | ED.RN ---
Pt. ambulated in room. Upon standing, reports still feeling lightheaded.
[2021-06-05 11:52] VITALS: BP 140/79; PULSE 68; RESP 14; O2SAT 98
[2021-06-05 12:10] LABS: Bedside Glucose 105 mg/dL (70-110)
[2021-06-05] MEDS: diazePAM 5 MG Tablet PO (12:14)
[2021-06-05 14:23] VITALS: BP 141/68
== END 2021-06-05 14:15 | disposition home or self-care (01) ==
PROVIDERS: Emergency Provider Emergency Medicine; PCP Internal Medicine
DX: R42 Dizziness and giddiness (principal); I25.10 Atherosclerotic heart disease of native coronary artery without angina pectoris; I48.11 Longstanding persistent atrial fibrillation; I10 Essential (primary) hypertension; E78.5 Hyperlipidemia, unspecified; M19.90 Unspecified osteoarthritis, unspecified site; N40.1 Benign prostatic hyperplasia with lower urinary tract symptoms; R35.1 Nocturia; Z79.01 Long term (current) use of anticoagulants; Z79.82 Long term (current) use of aspirin; Z79.899 Other long term (current) drug therapy; G47.33 Obstructive sleep apnea (adult) (pediatric); Z86.73 Personal history of transient ischemic attack (TIA), and cerebral infarction without residual deficits; Z96.642 Presence of left artificial hip joint
CPT/HCPCS: 70450; 80053; 82962; 83735; 84484; 85025; 93005; 96360; 99285; J7030; A4216

== ENCOUNTER 2022-02-08 11:19 | Emergency (ER) | payer MEDICARE, OTHER, SELFPAY ==
[2022-02-08 11:20] VITALS: BP 151/113; PULSE 87; RESP 18; TEMP 36.9; O2SAT 98; BMI 29.4
[2022-02-08 12:27] LABS: Erythrocyte Sedimentation Rate 24 mm/hr (0-20)
[2022-02-08 12:30] LABS: Absolute Neutrophil Count 6.9 X10^3/uL (2.0-7.7); Basophil# 0.04 X10^3/uL; Basophil% 0.4 % (0-1); Eosinophil# 0.23 X10^3/uL; Eosinophils% 2.5 % (0-5); Hematocrit 39.8 % (40-54); Hemoglobin 13.2 g/dL (13.0-16.5); Mean Corp Hgb Conc 33.2 g/dL (32-36); Mean Corpuscular Volume 96.6 fL (80-94); Mean Platelet Vol. 10.7 fl (6.2-12.0); Monocyte# 0.89 X10^3/uL; Monocyte% 9.8 % (0-10); NRBC Flagged by Analyzer 0 % (0-5); Neutrophil # 6.89 X10^3/uL (2.7-7.7); Platelet Count 192 K/mm3 (150-450); RBC Distribution Width CV 14.1 % (11.6-14.6); RBC Distribution Width SD 49.8 fl (35.1-43.9); Red Blood Count 4.12 M/mm3 (4.6-6.2); White Blood Count 9.1 K/mm3 (4.4-11.0)
[2022-02-08 12:36] LABS: Anion Gap 3 (5-15); BUN 16 mg/dL (7-18); BUN/Creat Ratio 17.1 RATIO (10-20); Chloride 104 mmol/L (98-107); Creatinine, Serum 0.94 mg/dL (0.70-1.30); EST Glomerular Filtration Rate 82 mL/min (>60); Est Glom Filt Rate - Afr Amer 99 mL/min (>60); Glucose 93 mg/dL (74-106); Potassium 4.9 mmol/L (3.5-5.1); Sodium Level 135 mmol/L (136-145)
--- NOTE | 2022-02-08 13:37 | EX.ED.DYSGE1 ---
HPI History of Present Illness Chief Complaint: Cellulitis Informant: patient and spouse/S.O. Onset/Context/Timing Onset: Days Context: Gradual Onset Narrative Narrative: Patient presents secondary to cellulitis of his left leg. 8 days ago patient was fishing in [place]. He fell on a wooden dock causing an injury to his left anterior lower banuelos. He has a 7 cm long abrasion. He was seen at urgent care yesterday for surrounding erythema. Tib-fib x-rays were obtained that were unremarkable. He was started on doxycycline. Patient had slight increase in redness today and was brought in for evaluation. He has had no fever. He otherwise feels well. 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) TIA (transient ischemic attack) (09/14/18) Home Medications finasteride 5 mg PO DAILY 09/14/18 [History Last Taken 09/13/18] multivitamin 1 ea PO DAILY 09/14/18 [History Last Taken 09/13/18] simvastatin 40 mg tablet 40 mg PO QHS 05/05/20 [History Last Taken Unknown] lisinopril 20 mg-hydrochlorothiazide 12.5 mg tablet 1 tab PO BID tab 05/06/20 [History Last Taken 07/13/20] metoprolol succinate 50 mg tablet,extended release 24 hr 50 mg PO DAILY #90 tab 05/13/20 [Rx Last Taken 07/13/20] aspirin 81 mg chewable tablet 81 mg PO DAILY@0800 #30 tab 05/18/20 [Rx Last Taken 07/13/20] apixaban 5 mg tablet 5 mg PO BID #60 tab 06/15/20 [Rx Last Taken 07/13/20] diazepam 2 mg PO TID PRN PRN #10 tablet 06/05/21 [Rx Last Taken Unknown] tamsulosin [Flomax] 0.4 mg PO DAILY 06/05/21 [History Last Taken Unknown] Allergy/AdvReac Type Severity Reaction Status Date / Time No Known Allergies Allergy Verified 02/08/22 11:22 Family History Father Heart disease Surgical History History of cardioversion (07/13/20) History of carpal tunnel release (10/2020) History of left heart catheterization (05/25/20) History of repair of rotator cuff History of total knee arthroplasty History of total left hip replacement (2011) Social History Smoking Status: Former smoker alcohol intake: current ROS ROS ED Constitutional Constitutional ED: Denies chills or fever(s) Eyes Eyes: Denies change in vision ENT ENT ED: Denies sore throat Cardiovascular Cardiovascular: Denies chest pain Respiratory/Chest Respiratory/Chest: Denies cough or dyspnea Gastrointestinal Gastrointestinal: Denies abdominal pain, diarrhea, nausea or vomiting Genitourinary Genitourinary ED: Denies dysuria Musculoskeletal Musculoskeletal: Denies back pain or neck pain Integumentary Reports Abrasions and rash Neurologic Neurologic: Denies headache(s) or weakness Allergic/Immunologic Allergic/Immunologic ED: Denies urticaria EXAM Physical Exam Const Vital Signs: 02/08/22 11:20 Temperature 98.4 F Temperature Source Temporal Pulse Rate 87 Respiratory Rate 18 Blood Pressure 151/113 H Blood Pressure Mean 125 Pulse Ox 98 Oxygen Delivery Method Room Air Positive well nourished and well developed General Appearance ED: well developed HEENT Reports moist mucous membranes Eyes PERRL and EOMs intact bilaterally Neck supple Chest Wall inspection of chest normal and palpation of chest normal Resp normal respiratory effort and clear to auscultation bilaterally Cardio regular rate and regular rhythm GI non-tender Palpation: soft Extremity Extremity Narrative: 7 cm long abrasion over the left anterior lower banuelos. Mild serosanguineous drainage. Surrounding erythema measuring 20 x 14 cm. Some ecchymosis is noted on the foot. No bony tenderness. Neuro oriented x3 Sensorium / Orientation: alert Psych mental status grossly normal MDM MDM MDM Narrative Medical decision making narrative: Lab work is obtained. I did review the x-ray results from [facility] urgent care. Lab Data Attestation: I reviewed the patient's lab results. Labs: Laboratory Results - last 24 hr 02/08/22 02/08/22 11:40 11:40 WBC 9.1 RBC 4.12 L Hgb 13.2 Hct 39.8 L MCV 96.6 H MCH 32.0 MCHC 33.2 RDW Std Deviation 49.8 H RDW Coeff of Riccardo 14.1 Plt Count 192 MPV 10.7 Immature Gran % (Auto) 0.300 Neut % (Auto) 76.0 H Lymph % (Auto) 11.0 L Wayne % (Auto) 9.8 Eos % (Auto) 2.5 Baso % (Auto) 0.4 Absolute Neuts (auto) 6.9 Absolute Lymphs (auto) 1.00 Nucleated RBC % 0 ESR 24 H Sodium 135 L Potassium 4.9 Chloride 104 Carbon Dioxide 28.0 Anion Gap 3 L BUN 16 Creatinine 0.94 Estim Creat Clear Calc 60.40 Est GFR (MDRD) Af Amer 99 Est GFR (MDRD) Non-Af 82 BUN/Creatinine Ratio 17.1 Glucose 93 Calcium 10.0 C-React Prot Ext Range 13.50 H Treatment and Re-Evaluation Narrative: Patient has a normal white count with very minimal left shift. Chemistry studies unremarkable. Sed rate is 24 and CRP is 13.5. Patient does have surrounding erythema, however it is mild in intensity. He has only had 24 hours of antibiotics. At this time I have outlined the area of erythema. The wound is cleansed and dressed. He will continue his doxycycline. If the erythema spreads beyond the marked after 48 to 72 hours of antibiotics or he develops fever he is to return. Patient and voiced understanding. Discharge Plan Triage Chief Complaint: Cellulitis ED Provider: Neda Moore Dx/Rx/DC Orders Clinical Impression: Cellulitis Instructions: ED Cellulitis Prescriptions: No Action simvastatin 40 mg tablet 40 mg PO QHS RF: 0 multivitamin 1 EACH tablet 1 ea PO DAILY RF: 0 finasteride 5 MG tablet 5 mg PO DAILY RF: 0 lisinopril-hydrochlorothiazide 20-12.5 mg tablet 1 tab PO BID RF: 0 aspirin 81 mg tablet,chewable 81 mg PO DAILY@0800 Qty: 30 RF: 1 tamsulosin [Flomax] 0.4 mg Capsule 0.4 mg PO DAILY RF: 0 diazepam [diazepam] 2 MG tablet 2 mg PO TID PRN PRN (Reason: Vertigo) Qty: 10 RF: 0 metoprolol succinate [Toprol XL] 50 mg tablet extended release 24 hr 50 mg PO DAILY Qty: 90 RF: 3 Eliquis 5 mg tablet 5 mg PO BID Qty: 60 RF: 12 Primary Care Provider: Ang Vickers Referrals: Ang Vickers MD [Primary Care Provider] - 1 Week Activity Restrictions/Additional Instructions: Area of redness was outlined today. Please continue your antibiotics. If the erythema has extended beyond this line after another 24 to 40 hours of antibiotics you need to be seen again. Please return for thick drainage, increasing redness or pain, fever. Disposition Disposition: Home, Self Care Discharge Date/Time: 02/08/22 14:08
== END 2022-02-08 14:08 | disposition home or self-care (01) ==
PROVIDERS: Emergency Provider Emergency Medicine; PCP Internal Medicine; Visit Provider Emergency Medicine
DX: L03.116 Cellulitis of left lower limb (principal); I48.11 Longstanding persistent atrial fibrillation; S80.812A Abrasion, left lower leg, initial encounter; W18.30XA Fall on same level, unspecified, initial encounter; I25.10 Atherosclerotic heart disease of native coronary artery without angina pectoris; I10 Essential (primary) hypertension; E78.5 Hyperlipidemia, unspecified; G47.33 Obstructive sleep apnea (adult) (pediatric); Z79.82 Long term (current) use of aspirin; Z79.01 Long term (current) use of anticoagulants; Z79.899 Other long term (current) drug therapy; Z86.73 Personal history of transient ischemic attack (TIA), and cerebral infarction without residual deficits; Z87.891 Personal history of nicotine dependence
CPT/HCPCS: 80048; 85025; 85652; 86140; 87040; 99283; A4216

== ENCOUNTER → 2023-10-04 | Outpatient (CLI) | payer MEDICARE, OTHER, SELFPAY ==
[2023-10-04 13:05] LABS: AST(SGOT) 22 U/L (15-37); Alanine Aminotransfer ALT/SGPT 26 U/L (16-61); Albumin, Serum 3.2 g/dL (3.2-5.0); Alkaline Phosphatase 97 U/L (45-117); Bilirubin, Direct 0.29 mg/dL (0.00-0.30); Globulin 3.9 g/dL (2.2-4.2); Protein, Total 7.1 g/dL (6.4-8.2)
== END | disposition home or self-care (01) ==
LOC: LAB 11:27
PROVIDERS: PCP Internal Medicine; Referring Provider Student in an Organized Health Care Education/Training Program; Visit Provider Student in an Organized Health Care Education/Training Program
DX: B35.1 Tinea unguium (principal)
CPT/HCPCS: 36415; 80076

== ENCOUNTER → 2023-11-16 | Outpatient (CLI) | payer MEDICARE, OTHER, SELFPAY ==
--- NOTE | 2023-11-16 12:56 | STRESSREP ---
Stress Test Report Pharmacologic myocardial perfusion stress test. 87-year-old man with a history of coronary disease and atrial fibrillation Resting EKG demonstrates atrial fibrillation with a rate of 63 bpm. Resting blood pressure is 150/98 mmHg. 0.4 mg of regadenoson was infused per usual protocol followed by rapid intravenous saline flush injection. Continuous EKG monitoring was performed. The maximum heart rate was 79 bpm which was 58% of max impacted heart rate the maximum workload was 1 metabolic equivalent. At rest there were no ST or T wave changes noted to suggest ischemia and at peak infusion nonspecific ST changes were noted which did not meet the criteria for ischemia. No clinical angina is noted. The final blood pressure was 140/84 mmHg. Myocardial perfusion protocol. 11 point mCi of technetium 99m sestamibi was injected at rest. 0.4 mg of regadenoson was infused per usual protocol. At peak infusion 33.8 mCi of technetium 99m sestamibi was injected stress images were obtained stress and rest images were reconstructed and compared in the short axis vertical long and horizontal long axis. Gated images were also obtained. Perfusion SPECT analysis: Review of the stress images demonstrate normal uptake of tracer noted in all areas of the myocardium. The resting images similar demonstrated normal uptake of tracer noted in all areas of the myocardium. No areas of reversibility are noted to suggest ischemia and no previous infarct is noted. Gated SPECT analysis: The gated ejection fraction is 56%. Conclusion: Normal pharmacologic myocardial perfusion stress test. Preserved ejection fraction.
== END | disposition home or self-care (01) ==
LOC: CVS 06:01
PROVIDERS: PCP Internal Medicine; Referring Provider Nurse Practitioner Family; Visit Provider Nurse Practitioner Family
DX: I10 Essential (primary) hypertension (principal); I47.29 Other ventricular tachycardia; I48.11 Longstanding persistent atrial fibrillation; I25.10 Atherosclerotic heart disease of native coronary artery without angina pectoris; E78.5 Hyperlipidemia, unspecified
CPT/HCPCS: 78452; 93017; A9500; A4216; J2785

== ENCOUNTER → 2023-11-21 | Outpatient (CLI) | payer MEDICARE, OTHER, SELFPAY ==
--- NOTE | 2023-11-21 12:39 | ECHOD_ITS ---
Reason For Study: SYNCOPE Procedure This was a 2D Doppler, Color Flow transthoracic echocardiogram. Exam performed in department. Left Ventricle Normal LV size. Left ventricular systolic function is normal. The left ventricular ejection fraction is 55 %. No regional wall motion abnormalities noted. Right Ventricle Normal RV size. Normal systolic function. Atria The left atrium is mildly enlarged. There is mild biatrial dilatation. The right atrium is mildly enlarged. Mitral Valve Normal mitral valve. Tricuspid Valve Normal tricuspid valve. Mild tricuspid valve insufficiency. Pulmonary artery systolic pressure is 30 mmHg. Aortic Valve Trisinus/trileaflet aortic valve. Pulmonic Valve Normal pulmonic valve. Great Vessels Normal aortic root. The pulmonary artery is normal size. Normal inferior vena cava. Pericardium/Pleural No pericardial effusion. MMode/2D Measurements & Calculations LVIDd: 4.8 cm IVSd: 1.4 cm LVOT diam: 2.0 cm LVIDs: 3.8 cm LVPWd: 0.93 cm LVOT area: 3.0 cm2 RVDd: 4.2 cm FS: 20.4 % Ao root diam: 3.5 cm LAV(MOD-bp): 90.0 ml LVAd ap4: 28.2 cm2 LAV(MOD-bp) Indexed: 44.5 ml/m2 LVLd ap4: 7.9 cm LAV(MOD-sp2): 103.6 ml EDV(MOD-sp4): 83.8 ml LAV(MOD-sp4): 74.1 ml EDV(sp4-el): 85.2 ml LVAs ap4: 17.9 cm2 LVLs ap4: 6.7 cm ESV(MOD-sp4): 42.5 ml ESV(sp4-el): 40.8 ml EF(MOD-sp4): 49.3 % EF(sp4-el): 52.1 % LVAd ap2: 33.5 cm2 SV(MOD-sp4): 41.3 ml SV(MOD-sp2): 55.3 ml LVLd ap2: 8.6 cm EDV(MOD-sp2): 112.5 ml EDV(sp2-el): 110.2 ml LVAs ap2: 22.1 cm2 LVLs ap2: 7.3 cm ESV(MOD-sp2): 57.1 ml ESV(sp2-el): 56.6 ml EF(MOD-sp2): 49.2 % SV(sp4-el): 44.4 ml LA dimension(2D): 5.8 cm LA A4 area: 23.6 cm2 RA A4 area: 20.3 cm2 TAPSE: 1.9 cm Time Measurements MV dec time: 0.18 sec Doppler Measurements & Calculations MV E max matoe: 71.9 cm/sec Lat Peak E' Mateo: 7.8 cm/sec Med Peak E' Mateo: 6.2 cm/sec E/E' lat: 9.2 E/E' med: 11.7 Ao V2 max: 156.5 cm/sec LV V1 max: 78.9 cm/sec SV(LVOT): 49.0 ml Ao max P.9 mmHg LV V1 max P.5 mmHg Ao V2 mean: 106.0 cm/sec LV V1 mean P.4 mmHg Ao mean P.2 mmHg LV V1 mean: 54.2 cm/sec Ao V2 VTI: 33.0 cm LV V1 VTI: 16.3 cm AV (velocity ratio): 0.50 SJ(I,D): 1.5 cm2 SJ(V,D): 1.5 cm2 PA V2 max: 73.0 cm/sec TR max mateo: 258.0 cm/sec PA max PG (full): 0.44 mmHg TR max P.6 mmHg ECHO/Echo Complete Interpretation Summary Left ventricular systolic function is normal. The left ventricular ejection fraction is 55 %. Normal LV size. There is mild biatrial dilatation. Ordering Physician: Chapis Carlson Referring Physician: Ang Vickers M.D. Performed By: Shweta Bauer RDCS
== END | disposition home or self-care (01) ==
PROVIDERS: PCP Internal Medicine; Referring Provider Nurse Practitioner Family; Visit Provider Nurse Practitioner Family
DX: I25.10 Atherosclerotic heart disease of native coronary artery without angina pectoris (principal); I48.11 Longstanding persistent atrial fibrillation; R55 Syncope and collapse
CPT/HCPCS: 93306

== ENCOUNTER → 2024-04-04 | Outpatient (CLI) | payer MEDICARE, OTHER, SELFPAY ==
[2024-04-04 11:00] LABS: Absolute Lymphocyte Count 1.13 X10^3/uL (0.83-4.51); Absolute Neutrophil Count 6.7 X10^3/uL (2.0-7.7); Basophil# 0.05 X10^3/uL; Basophil% 0.6 % (0-1); Eosinophils% 2.3 % (0-5); Hematocrit 38.2 % (40-54); Hemoglobin 12.7 g/dL (13.0-16.5); Lymphocyte # 1.13 X10^3/ul (0.83-4.51); Lymphocyte % 12.8 % (19-41); Mean Corp Hgb Conc 33.2 g/dL (32-36); Mean Corpuscular Hgb 32.4 pg (27.0-32.0); Mean Corpuscular Volume 97.4 fL (80-94); Mean Platelet Vol. 10.4 fl (6.2-12.0); Monocyte# 0.64 X10^3/uL; Monocyte% 7.3 % (0-10); NRBC Flagged by Analyzer 0 % (0-5); Neutrophil # 6.73 X10^3/uL (2.7-7.7); Neutrophil % 76.4 % (47-70); Platelet Count 185 K/mm3 (150-450); RBC Distribution Width CV 14.6 % (11.6-14.6); RBC Distribution Width SD 52.8 fl (35.1-43.9); Red Blood Count 3.92 M/mm3 (4.6-6.2); White Blood Count 8.8 K/mm3 (4.4-11.0)
[2024-04-04 11:20] LABS: BNP,B-Type NATRIURETIC PEPTIDE 670.7 pg/mL (0-100)
[2024-04-04 11:27] LABS: Anion Gap 1 (5-15); BUN 17 mg/dL (7-18); BUN/Creat Ratio 19.1 RATIO (10-20); Calcium,Total 10.2 mg/dL (8.5-10.1); Chloride 103 mmol/L (98-107); Creatinine, Serum 0.89 mg/dL (0.70-1.30); EST Glomerular Filtration Rate 86 mL/min (>60); Est Glom Filt Rate - Afr Amer 104 mL/min (>60); Glucose 102 mg/dL (74-106); Potassium 4.5 mmol/L (3.5-5.1); Sodium Level 137 mmol/L (136-145); Thyroid Stim Hormone (TSH) 1.12 uIU/mL (0.358-3.74)
== END | disposition home or self-care (01) ==
LOC: LAB 09:56
PROVIDERS: PCP Internal Medicine; Referring Provider Nurse Practitioner Gerontology; Visit Provider Nurse Practitioner Gerontology
DX: R06.09 Other forms of dyspnea (principal); R53.83 Other fatigue
CPT/HCPCS: 36415; 80048; 83880; 84443; 85025

== ENCOUNTER → 2024-04-12 | Outpatient (CLI) | payer MEDICARE, OTHER, SELFPAY ==
[2024-04-12 10:40] LABS: Anion Gap 5 (5-15); BUN 23 mg/dL (7-18); BUN/Creat Ratio 22.8 RATIO (10-20); Calcium,Total 10.1 mg/dL (8.5-10.1); Chloride 106 mmol/L (98-107); Creatinine, Serum 1.01 mg/dL (0.70-1.30); EST Glomerular Filtration Rate 74 mL/min (>60); Est Glom Filt Rate - Afr Amer 90 mL/min (>60); Glucose 103 mg/dL (74-106); Potassium 4.7 mmol/L (3.5-5.1); Sodium Level 139 mmol/L (136-145)
== END | disposition home or self-care (01) ==
LOC: LAB 09:48
PROVIDERS: PCP Internal Medicine; Referring Provider Nurse Practitioner Gerontology; Visit Provider Nurse Practitioner Gerontology
DX: R06.09 Other forms of dyspnea (principal)
CPT/HCPCS: 36415; 80048

== ENCOUNTER 2025-04-01 22:17 | Emergency (ER) | payer MEDICARE, OTHER, SELFPAY ==
[2025-04-01 22:18] VITALS: BP 140/71; PULSE 43; RESP 16; TEMP 36.8; O2SAT 97; BMI 22.6
[2025-04-01 22:25] VITALS: PULSE 70; RESP 18; O2SAT 96
--- OUTSIDE RECORDS SUMMARY | 2025-04-01 22:36 | XMS RPT_ITS | CCD ---
Author Organization [facility] Care Team Providers Care Customer Care Associate Name Role Phone Ang Vickers MD Primary Care Provider Dr. Ang Vickers Primary Care Provider Dr. Ang Vickers Referring Provider Roof CRIMINALIST, CRIMINALIST-C Aguilar Crowder Attending Provider Dr. Ang Vickers Primary Care Provider Dr. Ang Vickers Referring Provider Roof CRIMINALIST, CRIMINALIST-C Aguilar Crowder Attending Provider Dr. Newton Palmer Attending Provider Roof CRIMINALIST, CRIMINALIST-C Aguilar Crowder Referring Provider Roof CRIMINALIST, CRIMINALIST-C Aguilar Crowder Other Provider Ang Vickers MD Primary Care Provider Ang Vickers MD Primary Care Provider [phone] Isadora [employer]FISHING VESSEL DECKHAND, Daniela M Unavailable Roof CRIMINALIST, Aguilar Crowder Attending Unavailable Roof CRIMINALIST, Aguilar Crowder Referring Unavailable Ang Vickers Primary Care Unavailable Roof CRIMINALIST, Aguilar Crowder Attending Unavailable Roof CRIMINALIST, Aguilar Crowder Referring Unavailable Ang Vickers Primary Care Unavailable Ang Vickers Referring Unavailable Meneses AMA, Kristi Attending Unavailable Ang Vickers Primary Care Unavailable Ang Vickers Referring Unavailable Ang Vickers Primary Care Unavailable Roof CRIMINALIST, Aguilar Crowder Attending Unavailable Roof CRIMINALIST, Aguilar Crowder Referring Unavailable Newton Palmer Attending Unavailable Ang Vickers Primary Care Unavailable Roof CRIMINALIST, Aguilar H Consulting Unavailable Newton Palmer Attending Unavailable Vickers, Ang Primary Care Unavailable Vickers, Ang Primary Care Unavailable Gideon CRIMINALIST, Kristi Attending Unavailable Gideon CRIMINALIST, Kristi Referring Unavailable Vickers, Ang Primary Care Unavailable Gideon CRIMINALIST, Kristi Attending Unavailable Gideon CRIMINALIST, Kristi Referring Unavailable VICKERS, SUSANA Primary Care Unavailable QUEENER, MARSHA Referring Unavailable JORDIN, DOMINICK Attending Unavailable VICKERS, SUSANA Primary Care Unavailable QUEENER, MARSHA Referring Unavailable JORDIN, DOMINICK Attending Unavailable VICKERS, SUSANA Primary Care Unavailable QUEENER, MARSHA Referring Unavailable JORDIN, DOMINICK Attending Unavailable VICKERS, SUSANA Primary Care Unavailable QUEENER, MARSHA Referring Unavailable JORDIN, DOMINICK Attending Unavailable VICKERS, SUSANA Primary Care Unavailable QUEENER, MARSHA Referring Unavailable VICKERS, SUSANA Primary Care Unavailable QUEENER, MARSHA Attending Unavailable VICKERS, SUSANA Primary Care Unavailable VICKERS, SUSANA Attending Unavailable VICKERS, SUSANA Primary Care Unavailable YAJAIRA, MARSHA Referring Unavailable VICKERS, SUSANA Primary Care Unavailable VICKERS, SUSANA Attending Unavailable VICKERS, SUSANA Primary Care Unavailable QUEENER, MARSHA Referring Unavailable VICKERS, SUSANA Primary Care Unavailable QUEENER, MARSHA Attending Unavailable VICKERS, SUSANA Primary Care Unavailable VICKERS, SUSANA Attending Unavailable VICKERS, SUSANA Attending Unavailable VICKERS, SUSANA Primary Care Unavailable VICKERS, SUSANA Referring Unavailable VICKERS, SUSANA Primary Care Unavailable VICKERS, SUSANA Primary Care Unavailable BRUCE WALKER Referring Unavailable VICKERS, SUSANA Primary Care Unavailable BRUCE WALKER Attending Unavailable VICKERS, SUSANA Primary Care Unavailable MARLENE OLIVEIRA Attending Unavailable QUEENER, MARSHA Referring Unavailable VICKERS, SUSANA Primary Care Unavailable QUEENER, MARSHA Referring Unavailable DOMINICK CAMPOS Attending Unavailable Allergies Allergy Classification Reported Allergen(s) Allergy Type Date of Onset Reaction(s) Facility Baclofen (1 source) Baclofen Drug Allergy 10-02-2018 Other: See Comments [facility] Work Phone: (20 sources) Baclofen; Translations: [BACLOFEN] Drug Allergy 10-02-2018 Other: See Comments [facility] Work Phone: Medications Current Medications Medication Drug Class(es) Dates Sig (Normalized) Sig (Original) apixaban 5 mg oral tablet (20 sources) Factor Xa Inhibitor Start: 06-11-2020 End: 06-15-2020 take 1 tablet by mouth twice daily Apixaban (Eliquis) 5 mg tablet Active 5 MG PO TWICE A DAY June 15, 2020 10:31am Comment on above: Take 5 mg by mouth t wice daily. atorvastatin 40 mg oral tablet (20 sources) HMG-CoA Reductase Inhibitor Start: 09-28-2022 take 1 tablet by mouth once daily at bedtime for hyperlipidemia atorvastatin (LIPITOR) 40 mg tablet Take 1 tablet by mouth daily at bedtime. For cholesterol. AL medication. 09/28/2022 Active Start: 09-21-2020 End: 09-28-2022 take 1 tablet by mouth once daily at bedtime for hyperlipidemia atorvastatin (LIPITOR) 20 mg tablet Indications: Pure hypercholesterolemia , Atherosclerosis of coronary artery of [place] heart without angina pectoris, unspecified vessel or lesion type Take 1 tablet by mouth daily at bedtime. For cholesterol to replace SIMVASTATIN. 90 tablet 3 09/21/2020 09/28/2022 Discontinued Start: 09-15-2018 End: 05-05-2020 take 40 mg by mouth at bedtime Atorvastatin Discontinu ed 40 MG PO AT BEDTIME September 15, 2018 1:00am May 05, 2020 8:36pm Comment on above: Take 1 tablet by yuli th daily at bedtime. For cholesterol to replace SIMVASTATIN. Take 1 tablet by yuli th daily at bedtime. For cholesterol. AL medication. COMPOUNDED PRESCRIPTION (20 sources) Start: 06-26-2017 COMPOUNDED PRESCRIPTION Indications: Obstructive sleep apnea CPAP mask, tubing, and supplies. Dx: ICD9: 327.23, ICD10: G47.33 1 Each 06/26/2017 Active Start: 06-26-2017 COMPOUNDED PRE SCRIPTION Indications: Obstructive sleep apnea CPAP mask, tubing, and supplies. Dx: ICD9: 327.23, ICD10: G47.33 1 Each 0 06/26/2017 Active Start: 08-16-2010 COMPOUNDED PRE SCRIPTION replacment cpap machine with heated humifier, replacemnt mask and supplies. set presssure at 6 cm and H2o. ISAAC dx. 1 Each 11 08/16/2010 Active Comment on above: replacment cpap mach ine with heated humifier, replacemnt mask and supplies. set presssure at 6 cm and H2o. ISAAC dx. CPAP mask, tubing, a nd supplies. Dx: ICD9: 327.23, ICD10: G47.33 CPAP (20 sources) Start: 09-24-2021 CPAP Indications: Obstructive sleep apnea Initiate CPAP @ 6 cm of water with humidification. Mask (per patient preference) optional chin strap (if indicated) , filters, tubing, humidifier and lifetime supplies. 1 Each 09/24/2021 Active Start: 09-24-2021 CPAP Indicatio ns: Obstructive sleep apnea Initiate CPAP @ 6 cm of water with humidification. Mask (per patient preference) optional chin strap (if indicated) , filters, tubing, humidifier and lifetime supplies. 1 Each 0 09/24/2021 Active Comment on above: Initiate CPAP @ 6 cm of water with humidification. Mask (per patient preference) optional chin strap (if indicated) , filters, tubing, humidifier and lifetime supplies. doxycycline hyclate 100 mg oral tablet (5 sources) Tetracycline-class Drug Start: 02-12-20 End: 02-17-20 take 1 tablet by mouth twice daily doxycycline (VIBRA-TABS) 100 mg tablet Indications: Abrasion of left lower leg with infection, subsequent encounter , Cellulitis of left lower extremity Take 1 tablet by mouth twice daily for 5 days. 10 tablet 0 02/11/2022 02/16/2022 Active Start: 02-07-2022 End: 02-14-2022 take 1 tablet by mouth twice daily doxycycline monohydrate 100 mg tablet Take 1 tablet by mouth twice daily for 7 days. 14 tablet 02/07/2022 02/14/2022 Comment on above: Take 1 tablet by yuli th twice daily for 7 days. Take 1 tablet by yuli th twice daily for 5 days. finasteride 5 mg oral tablet (20 sources) 5-alpha Reductase Inhibitor Start: take 1 tablet by mouth once daily finasteride (PROSCAR) 5 mg tablet Indications: BPH with obstruction/lower urinary tract symptoms Take 1 tablet by mouth once daily. [facility] medication. 01/01/2020 Active Comment on above: Take 1 tablet by yuli th once daily. [facility] medication. furosemide 40 mg oral tablet (20 sources) Loop Diuretic Start: take 1 tablet by mouth every other day furosemide (LASIX) 40 mg tablet Indications: Essential hypertension Take 1 tablet by mouth every other day. 05/20/2024 Active Start: 10-02-2023 take 1 tablet by yuli th every other day Furosemide (Lasix) 20 mg tablet Active 20 MG PO every other day 45 October 02, 2023 10:44am Start: 03-15-2023 End: 09-26-2023 take 1 tablet by mouth once daily Furosemide (Lasix) 20 mg tablet Discontinued 20 MG PO DAILY March 15, 2023 12:00am September 26, 2023 3:04pm Start: 09-28-2022 End: 05-20-2024 take 1 tablet by mouth three times weekly furosemide (LASIX) 20 mg tablet Take 1 tablet by mouth three times a week. Mon, Mon, Monday. [facility] medication. 09/28/2022 05/20/2024 Discontinued (Dosage adjustment) Comment on above: Take 1 tablet by yuli th three times a week. Mon, Mon, Monday. VA medication. iv contrast (will be provided with radiology test) (2 sources) Start: End: 024 inject 1 dose intravenously once iv contrast (will be provided with radiology test) MRI Brain Inject, intravenously, once for 1 dose.No IV access, insert saline lock prior to beginning of sedation, infusion, injection of imaging exam.Discontinue saline lock post exam. If Pt. has a central line or IVAD, may access for administration according to line specific nursing protocol.Once exam is complete flush line and de-access according to line specific nursing protocol in the MR contrast administration guidelines link 1 Each 0 12/05/2023 12/06/2023 Active Comment on above: MRI Brain Inject, in travenously, once for 1 dose.No IV access, insert saline lock prior to beginning of sedation, infusion, injection of imaging exam.Discontinue saline lock post exam. If Pt. has a central line or IVAD, may access for administration according to line specific nursing protocol.Once exam is complete flush line and de-access according to line specific nursing protocol in the MR contrast administration guidelines link lisinopril 40 mg oral tablet (20 sources) Angiotensin Converting Enzyme Inhibitor Start: 023 take 1 tablet by mouth once daily lisinopril (ZESTRIL, PRINIVIL) 40 mg tablet Take 1 tablet by mouth once daily. [facility] medication. 09/28/2022 Active Comment on above: Take 1 tablet by yuli th once daily. [facility] medication. 24 hr metoprolol succinate 100 mg extended release oral tablet (20 sources) beta-Adrenergic Henry Start: take 1 tablet by mouth once daily metoprolol succinate ER (TOPROL XL) 100 mg Indications: Atherosclerosis of [place] coronary artery of [place] heart without angina pectoris Take 1 tablet by mouth once daily. 05/20/2024 Active Start: 11-22-2023 End: 05-20-2024 take 75 mg by mouth once daily metoprolol succinate ER (TOPROL XL) 100 mg Indications: Atherosclerosis of [place] coronary artery of [place] heart without angina pectoris Take 75 mg by mouth once daily. 11/22/2023 05/20/2024 Discontinued Start: 09-26-2023 take 1 tablet by yuli th once daily metoprolol succinate ER (TOPROL XL) 100 mg Indications: Atherosclerosis of [place] coronary artery of [place] heart without angina pectoris Take 1 tablet by mouth once daily. 0 11/22/2023 Active Start: 04-29-2020 End: 05-06-2020 take 25 mg by mouth once daily Metoprolol Succinate Discontinued 25 MG PO DAILY April 29, 2020 12:00am May 06, 2020 9:59am Start: 02-26-2020 End: 09-25-2023 take 1 tablet by mouth once daily metoprolol succinate ER (TOPROL XL) 50 mg 24 hr tablet Indications: Longstanding persistent atrial fibrillation (HCC) Take 100 mg by mouth once daily. 02/26/2020 09/25/2023 Discontinued Start: 02-26-2020 End: 09-26-2023 take 1 tablet by mouth once daily Metoprolol Succinate (Toprol Xl) 50 mg tablet extended release 24 hr Discontinued 50 MG PO DAILY May 13, 2020 1:05pm September 26, 2023 3:04pm Comment on above: Take 1 tablet by yuli th once daily. MULTIVITAMIN ORAL TAB (20 sources) Start: 04-05-2005 take 1 tablet by mouth once daily MULTIVITAMIN ORAL TAB Take one(1) tablet daily. 0 04/05/2005 Active Comment on above: Take one(1) tablet d aily. Multivitamin preparation (4 sources) Start: 09-14-2018 Multivitamin Active 1 EACH PO DAILY September 14, 2018 9:46am Start: 09-14-2018 Multivitamin A ctive 1 EACH PO DAILY September 14, 2018 1:00am Start: 09-14-2018 Multivitamin A ctive 1 EACH PO DAILY September 14, 2018 12:00am tamsulosin hydrochloride 0.4 mg oral capsule (20 sources) alpha-Adrenergic Henry Start: 03-24-2021 take 1 capsule by mouth once daily at bedtime tamsulosin (FLOMAX) 0.4 mg Indications: BPH with obstruction/lower urinary tract symptoms Take 1 capsule by mouth daily at bedtime. 30 capsule 2 03/24/2021 Active Comment on above: Take 1 capsule by mo [facility] daily at bedtime. vit A/vit C/vit E/zinc/copper (PRESERVISION AREDS ORAL) (6 sources) vit A/vit C/vit E/zinc/copper (PRESERVISION AREDS ORAL) Take by mouth. Active Vitamins A,C,F-Ksdu-Vpedln (Preservision Areds) 4,296 mcg-226 mg-90 mg capsule (3 sources) Start: 09-26-2023 take 1 capsule by mouth twice daily Vitamins A,C,G-Btbh-Fqlfym (Preservision Areds) 4,296 mcg-226 mg-90 mg capsule Active 1 CAP PO TWICE A DAY September 26, 2023 1:00am Start: 09-26-2023 take 1 capsule by mo ut twice daily Vitamins A,C,H-Zyjs-Tyiuwu (Preservision Areds) 4,296 mcg-226 mg-90 mg capsule Active 1 CAP PO TWICE A DAY September 26, 2023 12:00am Completed/Discontinued Medications Medication Drug Class(es) Dates Sig (Normalized) Sig (Original) aspirin 81 mg chewable tablet (8 sources) Platelet Aggregation Inhibitor, Nonsteroidal Anti-inflammatory Drug Start: 09-15-2018 End: 03-15-2023 take 81 mg by mouth once daily Aspirin Discontinued 81 MG PO DAILY@0800 30 May 18, 2020 9:56am March 15, 2023 8:33am baclofen 20 mg oral tablet (4 sources) gamma-Aminobutyric Acid-ergic Agonist Start: 09-14-2018 End: 09-15-2018 take 20 mg by mouth three times daily as needed Baclofen Discontinued 20 MG PO 3 TIMES DAILY NEEDED September 14, 2018 1:00am September 15, 2018 11:49am clopidogrel 75 mg oral tablet (4 sources) [id number] Platelet Inhibitor Start: 05-18-2020 End: 05-30-2020 take 1 tablet by mouth once daily Clopidogrel (Plavix) 75 mg tablet Discontinued 75 MG PO DAILY May 18, 2020 12:00am May 30, 2020 4:42pm diazePAM 2 mg oral tablet (4 sources) Benzodiazepine Start: 06-05-2021 End: 09-26-2023 take 2 mg by mouth three times daily as needed Diazepam Discontinued 2 MG PO 3 TIMES DAILY NEEDED June 05, 2021 12:00am September 26, 2023 3:05pm gabapentin 300 mg oral capsule (4 sources) Anti-epileptic Agent Start: 08-17-2020 End: 02-23-2021 take 300 mg by mouth once daily Gabapentin Discontinued 300 MG PO DAILY August 17, 2020 1:00am February 23, 2021 10:41am hydroCHLOROthiazide 12.5 mg / lisinopril 20 mg oral tablet (19 sources) Thiazide Diuretic, Angiotensin Converting Enzyme Inhibitor Start: 05-06-2020 End: 03-15-2023 take 1 tablet by mouth twice daily Lisinopril-Tama chlorothiazide Discontinued 1 TABLET PO TWICE A DAY May 06, 2020 9:38am March 15, 2023 8:32am Start: 01-01-2020 End: 09-28-2022 take 2 tablets by mouth once daily lisinopril-hydrochlorothiazide (PRINZIDE,ZESTORETIC) 20-12.5 mg per tablet Indications: Essential hypertension Take 2 tablets by mouth once daily. AL medication. 01/01/2020 09/28/2022 Discontinued Start: 09-14-2018 End: 05-06-2020 Lisinopril-Hydrochlorothiazi de Discontinued 1 EACH PO DAILY September 14, 2018 1:00am May 06, 2020 9:39am Comment on above: Take 2 tablets by mo [facility] once daily. [facility] medication. LOW-DOSE ASPIRIN ORAL (14 sources) End: 11-22-2023 LOW-DOSE ASPIRIN ORAL Indications: Vertebral artery stenosis, left Take 81 mg by mouth. Patient not taking on regular basis. Dr Palmer 11/22/2023 Discontinued LOW-DOSE ASPIRIN ORAL Indications: Vertebral artery stenosis, left Take 81 mg by mouth. Patient not taking on regular basis. Dr Palmer 0 Active take 81 mg by mouth every other day LOW-DOSE ASPIRIN ORAL Indications: Vertebral artery stenosis, left Take 81 mg by mouth. Every other day. Dr Palmer. 0 Active take 81 mg by mouth once daily L OW-DOSE ASPIRIN ORAL Indications: Vertebral artery stenosis, left Take 81 mg by mouth once daily. 0 Active Comment on above: Take 81 mg by mouth once daily. Take 81 mg by mouth. Every other day. Dr Palmer. Take 81 mg by mouth. Patient not taking on regular basis. Dr Palmer magnesium oxide 400 mg oral tablet (8 sources) Start: 2 End: 3 magnesium oxide 400 mg magnesium tab Indications: Hypomagnesemia Take 420 mg by mouth once daily. 0 02/18/2022 10/26/2022 Discontinued Comment on above: Take 420 mg by mouth once daily. naproxen 500 mg oral tablet (4 sources) Nonsteroidal Anti-inflammatory Drug Start: 9 End: 0 take 500 mg by mouth twice daily Naproxen Discontinued 500 MG PO TWICE A DAY September 14, 2018 1:00am May 05, 2020 8:37pm OTC PRODUCT (20 sources) End: 5 take 1 tablet by mouth twice daily OTC PRODUCT Take 1 tablet by mouth twice daily. PreserVision 11/22/2024 Discontinued take 1 tablet by mouth twice diogo ly OTC PRODUCT Take 1 tablet by mouth twice daily. PreserVision Active take 1 tablet by mouth twice diogo ly OTC PRODUCT Take 1 tablet by mouth twice daily. [facility]er[facility]ision 0 Active Comment on above: Take 1 tablet by yuli th twice daily. PreserVision simvastatin 40 mg oral tablet (8 sources) HMG-CoA Reductase Inhibitor Start: 0 End: 3 take 40 mg by mouth at bedtime Simvastatin Discontinued 40 MG PO AT BEDTIME May 05, 2020 12:00am March 15, 2023 8:32am Start: 09-14-2018 End: 09-15-2018 take 40 mg by mouth at bedtime Simvastatin Discontinue d 40 MG PO AT BEDTIME September 14, 2018 1:00am September 15, 2018 11:49am Problems Active Problems Problem Classification Problem Date Documented Da te Episodic/Chronic Cardiac dysrhythmias (20 sources) Atrial fibrillation; Translations: [Unspecified atrial fibrillation] Onset: 04-29-2020 09-21-2020 Chronic Coronary atherosclerosis and other heart disease (20 sources) Coronary atherosclerosis; Translations: [Atherosclerotic heart disease of [place] coronary artery without angina pectoris] Onset: 09-21-2020 09-21-2020 Chronic Deficiency and other anemia (2 sources) Anemia; Translations: [Anemia, unspecified] Episodic Disorders of lipid metabolism (20 sources) Pure hypercholesterolemia ; Translations: [Pure hypercholesterolemia , unspecified] Onset: 04-05-2005 07-12-2013 Chronic E Codes: Fall (1 source) Fall on same level from slipping, tripping or stumbling ; Translations: [Fall on same level from slipping, tripping and stumbling without subsequent striking against object, initial encounter] Episodic Essential hypertension (20 sources) Essential hypertension; Translations: [Essential (primary) hypertension] Onset: 04-05-2005 01-11-2019 Chronic Hyperplasia of prostate (20 sources) Benign prostatic hypertrophy with outflow obstruction; Translations: [Benign prostatic hyperplasia with lower urinary tract symptoms] Onset: 05-21-2010 06-07-2017 Chronic Immunizations and screening for infectious disease (6 sources) Patient encounter status; Translations: [Encounter for immunization] Episodic Occlusion or stenosis of precerebral arteries (20 sources) Stenosis of left vertebral artery; Translations: [Occlusion and stenosis of left vertebral artery] Onset: 10-08-2018 10-08-2018 Chronic Open wounds of extremities (1 source) Disorder of lower extremity; Translations: [Unspecified open wound, left lower leg, initial encounter] Episodic Other connective tissue disease (1 source) Pain in left lower limb; Translations: [Pain in left leg] Episodic Other connective tissue disease (1 source) Muscle weakness; Translations: [Muscle weakness (generalized)] 01-19-2024 Episodic Other diseases of kidney and ureters (1 source) Renal impairment; Translations: [Disorder of kidney and ureter, unspecified] Episodic Other gastrointestinal disorders (1 source) Diarrhea; Translations: [Diarrhea, unspecified] 06-12-2023 Episodic Other inflammatory condition of skin (20 sources) Chronic lichenoid pityriasis; 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] Onset: 08-15-2010 Resolved: 07-12-2013 07-12-2013 Chronic Other lower respiratory disease (4 sources) Dyspnea on exertion; Translations: [Dyspnea, unspecified] 02-22-2021 Episodic Other male genital disorders (2 sources) Swelling of testicle; Translations: [Other specified disorders of the male genital organs] Episodic Other nervous system disorders (3 sources) Neuropathy; Translations: [Polyneuropathy, unspecified] 12-05-2023 Chronic Other nervous system disorders (1 source) Polyneuropathy, unspecified; Translations: [Neuropathy] Onset: 05-22-2024 Chronic Other nervous system disorders (1 source) Paresthesia; Translations: [Paresthesia of skin] 01-19-2024 Episodic Other nervous system disorders (1 source) Multifactorial gait problem; Translations: [Other abnormalities of gait and mobility] 09-19-2024 Episodic Other nutritional; endocrine; and metabolic disorders (2 sources) Hypercalcemia; Translations: [Hypercalcemia] Chronic Other skin disorders (1 source) Eruption; Translations: [Rash and other nonspecific skin eruption] 01-09-2025 Episodic Other skin disorders (1 source) Rash and other nonspecific skin eruption; Translations: [Rash] Onset: 01-09-2025 Episodic Residual codes; unclassified (20 sources) Obstructive sleep apnea syndrome; Translations: [Obstructive sleep apnea (adult) (pediatric)] Onset: 08-16-2010 08-23-2021 Chronic Residual codes; unclassified (1 source) Other specified health status; Translations: [Other specified conditions influencing health status] Episodic Skin and subcutaneous tissue infections (8 sources) Cellulitis of left lower limb; Translations: [Cellulitis of left lower limb] Episodic Superficial injury; contusion (2 sources) Abrasion, left lower leg, subsequent encounter; Translations: [Other specified aftercare] Episodic Unclassified (1 source) Parkinsonism; Translations: [Parkinsonism, unspecified Parkinsonism type (HCC)] 07-23-2024 Chronic Unclassified (1 source) Longstanding persistent atrial fibrillation; Translations: [Longstanding persistent atrial fibrillation] Onset: 02-08-2024 Unclassified (1 source) Other ventricular tachycardia; Translations: [Other ventricular tachycardia] Onset: 02-08-2024 Past or Other Problems Problem Classification Problem Date Documented Date Episodic/Chronic Allergic reactions (20 sources) Psoriasiform eczema; Translations: [Other specified dermatitis] Onset: 08-15-2010 Resolved: 06-07-2017 07-12-2013 Episodic Conditions associated with dizziness or vertigo (20 sources) Dizziness; Translations: [Dizziness and giddiness] Onset: 05-31-2022 Resolved: 05-20-2024 Episodic Diabetes mellitus without complication (20 sources) Impaired fasting glycemia; Translations: [Impaired fasting glucose] Onset: 02-18-2022 Episodic Diverticulosis and diverticulitis (20 sources) Diverticulosis of colon; Translations: [Diverticulosis of large intestine without perforation or abscess without bleeding] Onset: 04-05-2005 Resolved: 06-07-2017 06-07-2017 Chronic Genitourinary symptoms and ill-defined conditions (2 sources) Proteinuria; Translations: [Proteinuria, unspecified] Onset: 10-09-2024 10-09-2024 Episodic Malaise and fatigue (1 source) Other fatigue; Translations: [Other fatigue] Onset: 04-04-2024 Episodic Other and unspecified benign neoplasm (20 sources) Melanocytic nevus of trunk; Translations: [Melanocytic nevi of trunk] Onset: 08-15-2010 Resolved: 07-12-2013 07-12-2013 Episodic Other and unspecified benign neoplasm (20 sources) Melanocytic nevus of upper limb; Translations: [Melanocytic nevi of unspecified upper limb, including shoulder] Onset: 08-15-2010 Resolved: 07-12-2013 07-12-2013 Episodic Other inflammatory condition of skin (20 sources) Parapsoriasis; 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, unspecified] Onset: 08-15-2010 Resolved: 07-12-2013 07-12-2013 Chronic Other injuries and conditions due to external causes (12 sources) At risk for falls ; Translations: [History of falling] Onset: 05-20-2024 05-20-2024 Episodic Other lower respiratory disease (1 source) Other forms of dyspnea; Translations: [Other forms of dyspnea] Onset: 05-01-2024 Episodic Other nervous system disorders (20 sources) Abnormal gait; Translations: [Unspecified abnormalities of gait and mobility] Onset: 11-22-2023 12-05-2023 Episodic Other nervous system disorders (20 sources) Unsteady when standing; Translations: [Unsteadiness on feet] Onset: 02-07-2024 01-26-2024 Episodic Other nervous system disorders (2 sources) Unspecified abnormalities of gait and mobility; Translations: [Abnormality of gait] Onset: 11-22-2023 Episodic Other nervous system disorders (1 source) Unsteadiness on feet; Translations: [Unsteadiness on feet] Onset: 02-07-2024 Episodic Other nutritional; endocrine; and metabolic disorders (20 sources) Hypomagnesemia; Translations: [Hypomagnesemia] Onset: 02-18-2022 Resolved: 05-24-2023 Chronic Other screening for suspected conditions (not mental disorders or infectious disease) (1 source) Encounter for screening for diabetes mellitus; Translations: [Screening for diabetes mellitus (DM)] Onset: 09-19-2024 Episodic Other skin disorders (20 sources) Actinic keratosis; Translations: [Actinic keratosis] Onset: 08-15-2010 02-18-2013 Episodic Other skin disorders (20 sources) Seborrheic keratosis; Translations: [Other seborrheic keratosis] Onset: 02-19-2013 02-19-2013 Episodic Other skin disorders (20 sources) Solar lentigo; Translations: [Other melanin hyperpigmentation] Onset: 08-15-2010 Resolved: 06-07-2017 06-07-2017 Episodic Other skin disorders (20 sources) Changes in skin texture; Translations: [Other skin changes] Onset: 05-16-2013 Resolved: 06-07-2017 06-07-2017 Episodic Residual codes; unclassified (20 sources) Sleep apnea; Translations: [Sleep apnea, unspecified] Onset: 12-29-2008 Resolved: 05-25-2011 08-23-2021 Chronic Spondylosis; intervertebral disc disorders; other back problems (20 sources) Spinal stenosis of lumbar region; Translations: [Spinal stenosis, lumbar region without neurogenic claudication] Onset: 01-24-2024 01-19-2024 Episodic Syncope (4 sources) Syncope; Translations: [Syncope and collapse] Onset: 02-08-2024 09-26-2023 Episodic Results Test Name Value Interpretation Reference Range Facility [facility] 01-09-2025 CNOV Office Visit (INTMWS ) ELYSE MALONEY ([id number]) 1935 M Date Time Provider Department 01/09/25 10:20 AM ANG VICKERS INTMWS During your visit today, we recorded the following information about you: Temperature Pulse Respiration Blood pressure 97.3 degrees 64/minute 12/minute 130/76 Weight 86.1 kg Ang Vickers MD 01/09/2025 10:44 AM Signed This note was created using [employer]. Subjective Patient presents with: Derm Problem Elyse Maloney is a 89 year old male. Recording using [employer] software for draft documentation of the visit was discussed with the patient/authorized event marketing representative; all questions welcomed and answered. Patient/authorized event marketing representative agreed to proceed Elyse is a 89-year-old male presenting with a discoloration on the right side of his face. Onset of a discoloration on his face approximately 11 days ago, initially noticed by his . The discoloration began as a purple area about the size of a quarter or silver dollar and has since faded in color but spread slightly towards his cheekbone and mouth. He denies any pruritus, pain, or inflammation associated with the discoloration and does not recall any insect bites or trauma to the area. He also denies any recent changes in shaving habits or exposure to irritants. He denies fever or difficulty opening his mouth. Review of Systems Per HPI. 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 furosemide (LASIX) 40 mg tablet Take 1 tablet by mouth every other day. metoprolol succinate ER (TOPROL XL) 100 mg Take 1 tablet by mouth once daily. atorvastatin (LIPITOR) 40 mg tablet Take 1 tablet by mouth daily at bedtime. For cholesterol. VA medication. lisinopril (ZESTRIL, PRINIVIL) 40 mg tablet Take 1 tablet by mouth once daily. VA medication. CPAP Initiate CPAP @ 6 cm of water with humidification. Mask (per patient preference) optional chin strap (if indicated) , filters, tubing, humidifier and lifetime supplies. tamsulosin (FLOMAX) 0.4 mg Take 1 capsule by mouth daily at bedtime. apixaban (ELIQUIS) 5 mg tab(s) Take 5 mg by mouth twice daily. finasteride (PROSCAR) 5 mg tablet Take 1 tablet by mouth once daily. VA medication. COMPOUNDED PRESCRIPTION CPAP mask, tubing, and supplies. Dx: ICD9: 327.23, ICD10: G47.33 COMPOUNDED PRESCRIPTION replacment cpap machine with heated humifier, replacemnt mask and supplies. set presssure at 6 cm and H2o. ISAAC dx. MULTIVITAMIN ORAL TAB Take one(1) tablet daily. No current facility-administered medications for this visit. Objective BP 130/76 (BP Site: Left Arm, BP Position: Sitting, BP Cuff Size: Large Adult) Pulse 64 Temp 36.3 ?C (97.3 ?F) (Temporal) Resp 12 Wt 86.1 kg (189 lb 13.1 oz) BMI 27.24 kg/m? Physical Exam HENT: Head: Comments: Ecchymotic ovoid rash with indistinct borders, non raised, non tender, no warmth, 1 x 1.5 cm on right pre auricular/mandibular angle area. Right Ear: External ear normal. Musculoskeletal: Cervical back: No tenderness. Lymphadenopathy: Cervical: No cervical adenopathy. Assessment and Plan 1. Rash - ICD9: 782.1, ICD10: R21 Non specific, probably resolving. Observe. Try OTC HCC. Return if not better. MD Rancho Newton Victor H, MD 01/09/2025 10:38 AM Signed We discussed the discoloration and rash on your face: - This appears to be some type of dermatitis or skin irritation. It does not show signs of infection. - Please apply an xahp-jzp-ulyrjaa topical corticosteroid cream to the affected area as directed on the product label. - Avoid scratching the area to prevent further irritation. - The discoloration should fade over time. If it worsens, spreads significantly, or develops new symptoms such as pain, swelling, or itching, please contact our office for further evaluation. Allergies As of Date: 01/09/2025 (No Active Allergies) Date Reviewed: 01/09/2025 Reviewed by: Elaine Jackson LPN - Fully Assessed Reason for Visit: Derm Problem [33] Primary Visit Diagnosis:Rash [R21] Prescriptions as of 01/09/2025 - vit A/vit C/vit E/zinc/copper (PRESERVISION AREDS ORAL) Take by mouth. - furosemide (LASIX) 40 mg tablet Take 1 tablet by mouth every other day. - metoprolol succinate ER (TOPROL XL) 100 mg Take 1 tablet by mouth once daily. - atorvastatin (more content not included)... Normal [facility] CNOVon 11-22-2024 CNOV Office Visit (INTMWS ) MALONEYELYSE ([id number]) 1935 M Date Time Provider Department 11/22/24 2:20 PM ANG VICKERS INTMWS During your visit today, we recorded the following information about you: Temperature Pulse Respiration Blood pressure 96.6 degrees 71/minute 14/minute 124/58 Weight Height 88 kg 1.778 m Ang Vickers MD 11/22/2024 3:31 PM Signed Elyse Del Rio Cristy is a 88 year old male here for a Medicare wellness visit. Medicare Health Risk Assessment General Health Good Exercise: Minutes/Day 20 min Exercise: Days/Week 3 days Alcohol: Daily Use 2-3 times a week Alcohol: Drinks/Day 1 or 2 Alcohol: 6 or more drinks Never Feel off balance Yes Concerns: Teeth/Dentures No Concerns: Sexual function No Troubled by feelings None of the above Frequency: Eating healthy diet Nearly every day ADLs requiring help None of the above Safety precautions in home/vehicle Yes Smoke, vape, chews tobacco No Difficulty hearing Yes, I wear a hearing aid Difficulty seeing No Current Providers Specialists: I have reviewed specialist-related care of the patient in the medical record. Current care team: Patient Care Team: Ang Vickers MD as PCP - General Daniela Muir APRN.FISHING VESSEL DECKHAND as Sample Taker Operator (Internal Medicine) Bruce Walker MD (Neurology) Marlene Oliveira MD (Neurology) Outside specialists seen: Dr. Newton Palmer, cardiology. Dr. Carlos Soto, dermatology. Dr. Dino Liriano, ophthalmology. Dr. Eneida Wellington, Pulmonary and Sleep Medicine. Dr. Guero Christine, Spine Surgery [facility] KHALIDA Madrigal-FISHING VESSEL DECKHAND ([facility]) [employer] for CPAP supplies. Medical/Family history review Reviewed and updated problem list, medical/surgical/family /social history, medications, and allergies. Opioid use review Opioid Medications (last 90 days) No data to display Anxiety/Depression screening PHQ-2 Score: 0 (Lower risk for depression) CHEY-7 Score: 0. Recommendation: no further intervention at this time Cognitive screening Mini Cog Score: 5 Cognitive screening reviewed and No further action needed (score 3-5). Functional Observation Was the patient's Timed Up AND Go test unsteady or >= 12 seconds? No Advance Care Planning Surrogate decision maker and/or advance care plan documented Measurements BP 136/74 Pulse 71 Temp (!) 35.9 ?C (96.6 ?F) (Temporal) Resp 14 Ht 177.8 cm (5' 10) Wt 88 kg (194 lb 0.1 oz) SpO2 99% BMI 27.84 kg/m? Vision Screening: Follows with optometry/ophthalmology Assessment/Plan Medicare annual wellness visit, subsequent (Z00.00) - Counseled on healthy diet and regular exercise - Fall avoidance information provided - Personalized prevention plan provided - Discussed need for and benefit of weight loss. BMI 27.84 kg/(m2) Ang Vickers MD 11/22/2024 3:31 PM Signed This note was created using NoteWriter. Subjective Elyse Maloney is a 88 year old male. He was doing reasonably well at this time. No falls were noted. He was referred to neurology for possible Parkinsonism and gait abnormality. His gait abnormality was felt to be multifactorial. He was seeing a spine surgeon at [facility] for spinal stenosis, and conservative management was recommended. His hypertension, hyperlipidemia, BPH, CAD, and atrial fibrillation were controlled. Review of Systems Constitutional: Negative for appetite change, fatigue and unexpected weight change. HENT: Negative for congestion. Eyes: Negative for visual disturbance. Respiratory: Negative for cough and shortness of breath. Cardiovascular: Positive for leg swelling. Negative for chest pain and palpitations. Gastrointestinal: Negative for abdominal pain, constipation and diarrhea. Genitourinary: Negative for difficulty urinating and dysuria. Musculoskeletal: Negative for arthralgias, back pain and neck pain. Neurological: Negative for dizziness, syncope and headaches. 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) Obstructive Sleep Apnea Other Seborrheic Keratosis Vertebral Artery Stenosis, Left Atrial Fibrillation (Hcc) Coronary Atherosclerosis Impaired Fasting Glucose Abnormal Gait Spinal Stenosis of Lumbar Region Unsteadiness On Feet Cervical Stenosis of Spinal Canal At Risk for Falling Social History Tobacco Use Smoking status: Former Current packs/day: 0.00 Average packs/day: 0.5 packs/day for 20.0 years (10.0 ttl pk-yrs) Types: Cigarettes Start date: 08/28/1957 Quit date: 08/28/1977 Years since quittin.2 Smokeless tobacco: Never Substance Use Topics Alcohol use: Yes Alcohol/week: 3.3 standard drinks of alcohol Types: 2 Cans of Beer (12oz), 1 Martini/Manhattan Drinks per week Drug use: No Current Ou (more content not included)... Normal [facility] Urinalysis complete panel (U )on 10-09-2024 Bacteria LM.HPF (Urine sed) [#/Area] Negative Normal Negative [facility] Comment on above: Order Comment: Speci men Type: URINE SPECIMENOrdering Facility: [facility] Address: [address] [place] [address] Performed By: #### 2 4356-8 ####[facility] LABCLIA [id number] [place] [address] [place] Bilirubin Ql (U) Negative Normal Negative [facility] Comment on above: Order Comment: Speci men Type: URINE SPECIMENOrdering Facility: [facility] Address: [address] [place] [address] Performed By: #### 2 4356-8 ####[facility] LABCLIA [id number] [place] [address] [place] Clarity (Unsp spec) Clear Normal Clear [facility] Comment on above: Order Comment: Speci men Type: URINE SPECIMENOrdering Facility: [facility] Address: [address] [place] [address] Performed By: #### 2 4356-8 ####[facility] LABCLIA [id number] [place] [address] [place] Color (U) Yellow Normal Yellow [facility] Comment on above: Order Comment: Speci men Type: URINE SPECIMENOrdering Facility: [facility] Address: [address] [place] [address] Performed By: #### 2 4356-8 ####[facility] LABCLIA [id number] [place] [address] [place] Epithelial cells LM.HPF (Urine sed) [#/Area] None Seen Normal [facility] Comment on above: Order Comment: Speci men Type: URINE SPECIMENOrdering Facility: [facility] Address: [address] [place] [address] Performed By: #### 2 4356-8 ####[facility] LABCLIA [id number] [place] [address] [place] Glucose Test strip (U) [Mass/Vol] Negative Normal Negative [facility] Comment on above: Order Comment: Speci men Type: URINE SPECIMENOrdering Facility: [facility] Address: [address] [place] [address] Performed By: #### 2 4356-8 ####[facility] LABCLIA [id number] [place] [address] [place] Hemoglobin Ql (U) Negative Normal Negative [facility] Comment on above: Order Comment: Speci men Type: URINE SPECIMENOrdering Facility: [facility] Address: [address] [place] [address] Performed By: #### 2 4356-8 ####[facility] LABCLIA [id number] [place] [address] [place] Hyaline casts (Urine sed) [#/Area] 0 /[LPF] Normal 0 /LPF [facility] Comment on above: Order Comment: Speci men Type: URINE SPECIMENOrdering Facility: [facility] Address: [address] [place] [address] Performed By: #### 2 4356-8 ####[facility] LABCLIA [id number] [place] [address] [place] Ketones Ql (U) Negative Normal Negative [facility] Comment on above: Order Comment: Speci men Type: URINE SPECIMENOrdering Facility: [facility] Address: [address] [place] [address] Performed By: #### 2 4356-8 ####[facility] LABCLIA [id number] [place] [address] [place] Leukocyte esterase Test strip Ql (U) Negative Normal Negative [facility] Comment on above: Order Comment: Speci men Type: URINE SPECIMENOrdering Facility: [facility] Address: [address] [place] [address] Performed By: #### 2 4356-8 ####[facility] LABCLIA [id number] [place] [address] [place] Nitrite Ql (U) Negative Normal Negative [facility] Comment on above: Order Comment: Speci men Type: URINE SPECIMENOrdering Facility: [facility] Address: [address] [place] [address] Performed By: #### 2 4356-8 ####[facility] LABCLIA [id number] [place] [address] [place] pH (U) 7.0 [pH] Normal <8.5 [facility] Comment on above: Order Comment: Speci men Type: URINE SPECIMENOrdering Facility: [facility] Address: [address] [place] [address] Performed By: #### 2 4356-8 ####[facility] LABIA [id number] [place] [address] [place] Protein (U) [Mass/Vol] 1+ Abnormal Negative [facility] Comment on above: Order Comment: Speci men Type: URINE SPECIMENOrdering Facility: [facility] Address: [address] [place] [address] Performed By: #### 2 4356-8 ####[facility] LABIA [id number] [place] [address] [place] RBC LM.HPF (Urine sed) [#/Area] 0-2 /HPF Normal 0-2 /HPF [facility] Comment on above: Order Comment: Speci men Type: URINE SPECIMENOrdering Facility: [facility] Address: [address] [place] [address] Performed By: #### 2 4356-8 ####[facility] LABIA [id number] [place] [address] [place] Specific gravity (U) [Rel density] 1.019 Normal 1.005-1.030 [facility] Comment on above: Order Comment: Speci men Type: URINE SPECIMENOrdering Facility: [facility] Address: [address] [place] [address] Performed By: #### 2 4356-8 ####[facility] LABIA [id number] [place] [address] [place] Urobilinogen Ql (U) 0.2 EU/dL Normal 0.2-1.0 EU/dL [facility] Comment on above: Order Comment: Speci men Type: URINE SPECIMENOrdering Facility: [facility] Address: [address] [place] [address] Performed By: #### 2 4356-8 ####[facility] LABIA [id number] [place] [id number] [place] WBC LM.HPF (Urine sed) [#/Area] 0-5 /HPF Normal 0-5 /HPF [facility] Comment on above: Order Comment: Speci men Type: URINE SPECIMENOrdering Facility: [facility] Address: [address] [place], [place] [address] Performed By: #### 2 4356-8 ####[facility] [id number] [place] [address] [place] Cardiology Visit Reporton Cardiology Visit Report [facility] [address] [place] [address] OFFICE VISIT Date of Service: 10/03/24 MR#: [id number] Acct: [id number] Name: ELYSE MALONEY Rep #: [id number] : 1935 Provider: JANA marquis Age/Sex: 88/M Location: [facility] Status: Signed HPI HPI History of Present Illness Details: This is a pleasant 88-year-old man who presents for a cardiovascular follow-up visit. He had been scheduled for carpal tunnel surgery and was noted to be in atrial fibrillation with a controlled ventricular response rate. He underwent DC cardioversion but did not maintain sinus rhythm. He has been compliant with his medications. He remember his coronary angiogram in April 2020 demonstrated no significant obstructive coronary disease and his echocardiogram demonstrated mildly reduced left ventricular ejection fraction of 50%. He states that he has been following with Neurology from [facility] for balance issues and completed PT. He denies chest, arm, jaw, or neck discomfort. He denies palpitations. He denies bilateral lower extremity edema. He denies claudication. He denies shortness of breath with activity, shortness of breath at rest, orthopnea, or PND. He denies chronic cough. He denies significant, sudden weight gain. He denies lightheadedness, dizziness, near-syncope, or syncope. He denies blood in urine, blood in stool, or epistaxis. He denies fever with chills. He denies myalgia. He denies fatigue. His exercise level has remained stable. Intake Vital Signs 04/04/24 09:20 10/03/24 09:19 Height 5 ft 10 in 5 ft 10 in Weight: 190 lb 186 lb BMI 27.2 26.6 BP 164/94 H 175/91 H Blood Pressure Location Lt brachial Lt brachial Position Sitting Sitting Respiration 18 16 Pulse 67 73 Pulse Source Monitor NIBP Pulse Oximetry (%) 96 Intake Visit Reasons: 6 M FU Mail Inserter Required: No Is patient in pain?: No Allergies No Known Allergies Allergy (Verified 10/03/24 09:28) Medications ???Medication ???Instructions ???Recorded ???Confirmed ???Type finasteride 5 mg tablet 5 mg PO DAILY prostate 09/14/18 History multivitamin 1 ea PO DAILY vitamin 09/14/1802/19 History apixaban 5 mg tablet (Eliquis) 5 mg PO BID #60 tabs 06/15/2002/19 Rx tamsulosin 0.4 mg capsule (Flomax) 0.4 mg PO DAILY 06/05/21 5 History atorvastatin 40 mg tablet 40 mg PO DAILY 03/15/23 10/03/24 H istory lisinopril 40 mg tablet 40 mg PO DAILY 03/15/23 10/03/24 H istory vitamins A,C,Q-wadf-ayqnjn 4,296 1 cap PO BID 09/26/23 10/03/24 His tory mcg-226 mg-90 mg capsule (PreserVision AREDS) furosemide 40 mg tablet 40 mg PO Q OTHER DAY #45 tabs 04/2810/03/24 Rx metoprolol succinate 100 mg 100 mg PO DAILY 10/03/24 10/03/24 History tablet,extended release 24 hr Ejection fraction %: 55 Have you fallen in the past year?: No PFSH Medical History Syncope Longstanding persistent atrial fibrillation Atherosclerotic heart disease of [place] coronary artery without angina pectoris Actinic keratoses New onset atrial fibrillation (04/29/20) Carpal tunnel syndrome Obstructive sleep apnea Osteoarthritis 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) Essential (primary) hypertension BPH associated with nocturia Hyperlipidemia TIA (transient ischemic attack) (09/14/18) Surgical History History of carpal tunnel release (10/2020) History of cardioversion (07/13/20) History of left heart catheterization (05/25/20) History of total knee arthroplasty History of repair of rotator cuff History of total left hip replacement (2011) Family History Father Heart disease Social History Smoking Status: Former smoker how long ago did patient quit smokin alcohol intake: current alcohol intake frequency: a few times a week substance use type: does not use caffeine: Yes Type: coffee Number of servings: 1 ROS Const Const: Negative for fatigue or weakness Eyes Eyes: Negative for change in vision ENT ENT: Positive for balance problems; Negative for dizziness Cardio Chest Pain: No Palpitations: No Edema: None Muscle aches with walking: None Resp Respiratory: Negative for SOB with activity, SOB at rest or SOB orthopnea SOB lying down GI GI: Negative nausea or heartburn : Negative for hematuria or frequent nighttime urination/ nocturia Musc Musc: Positive for balance problems Skin Skin: Negative non-healing lesions or rash Neuro Neuro: Positive for other (Unstable); Negative for dizziness, lightheadedness, near syncope, syncope or weakness Endo Endo: Negative for fatigue (more content not included)... Normal [facility] JONATHON BY IFA WITH REFLEXon Nuclear Ab pattern (S) [Interp] Nuclear homogeneous Normal [facility] Comment on above: Order Comment: Speci men Type: BLOOD SPECIMENOrdering Facility: [facility] Address: [address] [place] [address] Performed By: #### 1 6570-4, 38718-3, ANAIFR, 95569-3, 55378-5, 73811-7, 88234-2, 28492-9, 09222-1, 57629-9 ####[facility] LABIA [id number] [place] [address] [place] Nuclear Ab Ql (S) Positive Abnormal Negative [facility] Comment on above: Order Comment: Speci men Type: BLOOD SPECIMENOrdering Facility: [facility] Address: [address] [place] [address] Result Comment: Anti -nuclear antibody test is used as an aid in diagnosis of systemic autoimmune diseases. Where positive and clinically warranted, follow-up using disease-specific testing is recommended. Low positive titers are not uncommon with advanced age, certain chronic infections, and malignancies among others. Test methodology: Indirect fluorescence immunoassay (IFA) using HEp-2 cells. 1:80 Performed By: #### 1 6570-4, 26388-4, ANAIFR, 44796-6, 82512-6, 43770-9, 44628-7, 12191-2, 15477-0, 62203-0 ####[facility] LABIA [id number] [place] [id number] [place] CBC W Auto Differential pane l (Bld)on 09-19-2024 Basophils (Bld) [#/Vol] 0.03 10*3/uL [facility] Basophils/100 WBC (Bld) 0.3 % [facility] Differential cell count method Nom (Bld) Auto [facility] Eosinophils (Bld) [#/Vol] 0.26 10*3/uL [facility] Eosinophils/100 WBC (Bld) 2.8 % [facility] Erythrocyte distribution width (RBC) [Ratio] 14.0 % 11.5 - 15.0 % [facility] Hematocrit (Bld) [Volume fraction] 37.9 % Low 39.0 - 51.0 % [facility] Hemoglobin (Bld) [Mass/Vol] 12.5 g/dL Low 13.0 - 17.0 g/dL [facility] Immature granulocytes (Bld) [#/Vol] 0.07 10*3/uL [facility] Immature granulocytes/100 WBC (Bld) 0.8 % [facility] Interpretation and review of laboratory results Abnormal [facility] Lymphocytes (Bld) [#/Vol] 1.23 10*3/uL [facility] Lymphocytes/100 WBC (Bld) 13.2 % [facility] MCH (RBC) [Entitic mass] 33.0 pg 26.0 - 34.0 pg [facility] MCHC (RBC) [Mass/Vol] 33.0 g/dL 30.5 - 36.0 g/dL [facility] MCV (RBC) [Entitic vol] 100.0 fL 80.0 - 100.0 fL [facility] Monocytes (Bld) [#/Vol] 0.76 10*3/uL [facility] Monocytes/100 WBC (Bld) 8.2 % [facility] Neutrophils (Bld) [#/Vol] 6.96 10*3/uL [facility] Neutrophils/100 WBC (Bld) 74.7 % [facility] Nucleated RBC (Bld) [#/Vol] [facility] Nucleated RBC/100 WBC (Bld) [Ratio] 0.0 % /100 WBC [facility] Platelet mean volume (Bld) [Entitic vol] 10.6 fL 9.0 - 12.7 fL [facility] Platelets (Bld) [#/Vol] 186 10*3/uL [facility] RBC (Bld) [#/Vol] 3.79 10*6/uL Low 4.20 - 6.0 0 m/uL [facility] WBC (Bld) [#/Vol] 9.31 10*3/uL [facility] Basophils (Bld) [#/Vol] 0.03 10*3/uL Normal <0.11 [facility] Comment on above: Order Comment: Speci men Type: BLOOD SPECIMENOrdering Facility: [facility] Address: [address] [place] [address] Performed By: #### 5 7021-8 ####[facility] LABCLIA [id number] [place] [address] [place] Basophils/100 WBC (Bld) 0.3 % Normal [facility] Comment on above: Order Comment: Speci men Type: BLOOD SPECIMENOrdering Facility: [facility] Address: [address] [place] [address] Performed By: #### 5 7021-8 ####[facility] LABCLIA [id number] [place] [address] [place] Differential cell count method Nom (Bld) Auto Normal [facility] Comment on above: Order Comment: Speci men Type: BLOOD SPECIMENOrdering Facility: [facility] Address: [address] [place] [address] Performed By: #### 5 7021-8 ####[facility] LABCLIA [id number] [place] [address] [place] Eosinophils (Bld) [#/Vol] 0.26 10*3/uL Normal <0.46 [facility] Comment on above: Order Comment: Speci men Type: BLOOD SPECIMENOrdering Facility: [facility] Address: [address] [place] [address] Performed By: #### 5 7021-8 ####[facility] LABCLIA [id number] [place] [address] [place] Eosinophils/100 WBC (Bld) 2.8 % Normal [facility] Comment on above: Order Comment: Speci men Type: BLOOD SPECIMENOrdering Facility: [facility] Address: [address] [place] [address] Performed By: #### 5 7021-8 ####[facility] LABCLIA [id number] [place] [address] [place] Erythrocyte distribution width (RBC) [Ratio] 14.0 % Normal 11.5-15.0 [facility] Comment on above: Order Comment: Speci men Type: BLOOD SPECIMENOrdering Facility: [facility] Address: [address] [place] [address] Performed By: #### 5 7021-8 ####[facility] LABCLIA [id number] [place] [address] [place] Hematocrit (Bld) [Volume fraction] 37.9 % Low 39.0-51.0 [facility] Comment on above: Order Comment: Speci men Type: BLOOD SPECIMENOrdering Facility: [facility] Address: [address] [place] [address] Performed By: #### 5 7021-8 ####[facility] LABCLIA [id number] [place] [address] [place] Hemoglobin (Bld) [Mass/Vol] 12.5 g/dL Low 13.0-17.0 [facility] Comment on above: Order Comment: Speci men Type: BLOOD SPECIMENOrdering Facility: [facility] Address: [address] [place] [address] Performed By: #### 5 7021-8 ####[facility] LABCLIA [id number] [place] [address] [place] Immature granulocytes (Bld) [#/Vol] 0.07 10*3/uL Normal <0.10 [facility] Comment on above: Order Comment: Speci men Type: BLOOD SPECIMENOrdering Facility: [facility] Address: [address] [place] [address] Performed By: #### 5 7021-8 ####[facility] LABIA [id number] [place] [address] [place] Immature granulocytes/100 WBC (Bld) 0.8 % Normal [facility] Comment on above: Order Comment: Speci men Type: BLOOD SPECIMENOrdering Facility: [facility] Address: [address] [place] [address] Performed By: #### 5 7021-8 ####[facility] LABIA [id number] [place] [address] [place] Lymphocytes (Bld) [#/Vol] 1.23 10*3/uL Normal 1.00-4.00 [facility] Comment on above: Order Comment: Speci men Type: BLOOD SPECIMENOrdering Facility: [facility] Address: [address] [place] [address] Performed By: #### 5 7021-8 ####[facility] LABCLIA [id number] [place] [address] [place] Lymphocytes/100 WBC (Bld) 13.2 % Normal [facility] Comment on above: Order Comment: Speci men Type: BLOOD SPECIMENOrdering Facility: [facility] Address: [address] [place] [address] Performed By: #### 5 7021-8 ####[facility] LABIA [id number] [place] [address] [place] MCH (RBC) [Entitic mass] 33.0 pg Normal 26.0-34.0 [facility] Comment on above: Order Comment: Speci men Type: BLOOD SPECIMENOrdering Facility: [facility] Address: [address] [place] [address] Performed By: #### 5 7021-8 ####[facility] LABIA [id number] [place] [address] [place] MCHC (RBC) [Mass/Vol] 33.0 g/dL Normal 30.5-36.0 [facility] Comment on above: Order Comment: Speci men Type: BLOOD SPECIMENOrdering Facility: [facility] Address: [address] [place] [address] Performed By: #### 5 7021-8 ####[facility] LABIA [id number] [place] [address] [place] MCV (RBC) [Entitic vol] 100.0 fL Normal 80.0-100.0 [facility] Comment on above: Order Comment: Speci men Type: BLOOD SPECIMENOrdering Facility: [facility] Address: [address] [place] [address] Performed By: #### 5 7021-8 ####[facility] LABIA [id number] [place] [address] [place] Monocytes (Bld) [#/Vol] 0.76 10*3/uL Normal <0.87 [facility] Comment on above: Order Comment: Speci men Type: BLOOD SPECIMENOrdering Facility: [facility] Address: [address] [place] [address] Performed By: #### 5 7021-8 ####[facility] LABCLIA [id number] [place] [address] [place] Monocytes/100 WBC (Bld) 8.2 % Normal [facility] Comment on above: Order Comment: Speci men Type: BLOOD SPECIMENOrdering Facility: [facility] Address: [address] [place] [address] Performed By: #### 5 7021-8 ####[facility] LABCLIA [id number] [place] [address] [place] Neutrophils (Bld) [#/Vol] 6.96 10*3/uL Normal 1.45-7.50 [facility] Comment on above: Order Comment: Speci men Type: BLOOD SPECIMENOrdering Facility: [facility] Address: [address] [place] [address] Performed By: #### 5 7021-8 ####[facility] LABCLIA [id number] [place] [address] [place] Neutrophils/100 WBC (Bld) 74.7 % Normal [facility] Comment on above: Order Comment: Speci men Type: BLOOD SPECIMENOrdering Facility: [facility] Address: [address] [place] [address] Performed By: #### 5 7021-8 ####[facility] LABCLIA [id number] [place] [address] [place] Nucleated RBC (Bld) [#/Vol] 10*3/uL Normal <0.01 [facility] Comment on above: Order Comment: Speci men Type: BLOOD SPECIMENOrdering Facility: [facility] Address: [address] [place], [place] [address] Performed By: #### 5 7021-8 ####[facility] LABCLIA [id number] [place] [address] [place] Nucleated RBC/100 WBC (Bld) [Ratio] 0.0 /100 WBC Normal [facility] Comment on above: Order Comment: Speci men Type: BLOOD SPECIMENOrdering Facility: [facility] Address: [address] [place] [address] Performed By: #### 5 7021-8 ####[facility] LABCLIA [id number] [place] [address] [place] Platelet mean volume (Bld) [Entitic vol] 10.6 fL Normal 9.0-12.7 [facility] Comment on above: Order Comment: Speci men Type: BLOOD SPECIMENOrdering Facility: [facility] Address: [address] [place] [address] Performed By: #### 5 7021-8 ####[facility] LABCLIA [id number] [place] [address] [place] Platelets (Bld) [#/Vol] 186 10*3/uL Normal 150-400 [facility] Comment on above: Order Comment: Speci men Type: BLOOD SPECIMENOrdering Facility: [facility] Address: [address] [place] [address] Performed By: #### 5 7021-8 ####[facility] LABCLIA [id number] [place] [address] [place] RBC (Bld) [#/Vol] 3.79 10*6/uL Low 4.20-6.00 [facility] Comment on above: Order Comment: Speci men Type: BLOOD SPECIMENOrdering Facility: [facility] Address: [address] [place] [address] Performed By: #### 5 7021-8 ####[facility] LABCLIA [id number] [place] [address] [place] WBC (Bld) [#/Vol] 9.31 10*3/uL Normal 3.70-11.00 [facility] Comment on above: Order Comment: Speci men Type: BLOOD SPECIMENOrdering Facility: [facility] Address: [address] [place] [address] Performed By: #### 5 7021-8 ####[facility] LABCLIA [id number] [place] [address] [place] B[place] CNOVon 09-19-2024 CNOV Office Visit (NREUS2 ) MALONEYELYSE Bañuelos ([id number]) 1935 M Date Time Provider Department 09/19/24 8:30 AM BRUCE WALKER NREUS2 During your visit today, we recorded the following information about you: Weight Height 83.9 kg 1.778 m Bruce Walker MD 09/19/2024 11:21 AM Signed [facility] - Follow Up Visit [facility] Neurologist: Bruce Walker MD [facility] JOANNA: No referring provider defined for this encounter. Ang Vickers MD [address] [facility] [id number] Dear : I had the pleasure of evaluating Mr. Maloney to our clinic today. As you know he is a 88 year old right-handed male who is seen in consultation for evaluation of balance issues since 2021. He is seen with several relatives. Subjective HISTORY OF PRESENT ILLNESS: Reason for visit is gait impairment. Has seen neurology SANDRA Arias on 05/22/[address] Oliveira as well. Patient is 88 yo with PMH significant for A-fib on Eliquis, hypertension, hyperlipidemia, CAD, ISAAC, orthostatic dizziness, EMG with evidence of lumbar radiculopathy, low B12 levels, significant stenosis in cervical spine as well. In addition, he has left rotator cuff tear s/p repair, left hip replacement, left knee replacement. Concern for balance issues started around 2021, where he starts to feel dizzy and lightheaded. If he grabs a chair handle, everything is ok. He has trouble standing still for periods of time. He describes dizziness: no room spinning. He feels the bottoms of his feet are not planted. He does not feel like he is going to faint. It is fine when he starts to walk. It gets more difficult when he closes his eyes. He walks very carefully/gingerly. He has lost his sense of smell and taste. There is no RBD, no constipation. He was in PT at [facility] Denies neuropathy sensations in his feet. Denies any pain. He has an ache in his lower back. He has found himself leaning slightly forward when walking. When he stars leaning forward he finds he shuffles. No tremor. No muscle stiffness. He's fallen, three times in last 3 years. The most recent fall was when he tripped with right foot on a chair leg. February 2024. He had another fall in Apr 2024 where he missed a step. He did have pesticide exposure in his earlier years. MRI lumbar spine from December 2023 reviewed, there is stenosis at multiple levels, moderate to severe at L1-L2, moderate at L3-L4. MRI cervical spine with mild to moderate stenosis with normal cord signal. Memory: good Urine control issues: denies Vision problems: has macular degeneration. EMG report from 01/19/2024: 1. The residuals of an old intraspinal canal lesion (ie: motor radiculopathy) at the left L5 root or segment, moderate to severe in degree electrically. 2. An active/ongoing on remote/chronic intraspinal canal lesion (ie: motor radiculopathy) at the left S1 root or segment, mild in degree electrically. 3. The residuals of an old intraspinal canal lesion (ie: motor radiculopathy) at the left C8 root or segment, mild in degree electrically. 4. Evidence of a left median mononeuropathy at or distal to the wrist (ie: carpal tunnel syndrome), mild in degree electrically. 5. In the setting of #1 and 2 above, an axonal large fiber polyneuropathy cannot be reliably determined on today's study as the absent sensory responses in the lower limb could be normal for a patient of this age. There is no convincing electrodiagnostic evidence to support the presence of neuropathy, but it cannot be reliably excluded either. Questionnaires: In addition, the following activities of daily living that may be affected by tremors were evaluated: Speaking: Feeding: Bringing Liquids to Mouth: Hygiene: Dressing: Not affected Writing: Not affected Working: Number of falls in the Last Month: 0 Mood/Behavior Depression: PHQ-9 Score: 0 usually representing no significant (0-4) depression. Anxiety: CHEY-7 Total Score: 0 usually representing no significant (0-4) anxiety. Finally, the following table shows the patient's overall global physical and mental health using the PROMIS scale: PROMIS-10 Flowsheet Row Office Visit from 09/19/2024 in [facility] Office Visit from 06/28/2024 in Neurology Global Physical Health T Score 50.8 50.8 Global Mental Health T Score -- 56 0-10 Standard Pain Scale 4 4 *PROMIS-10 scoring scale: mean = 50, over 50 is above average, under 50 is below average Review of Systems All other systems reviewed and are negative. ALLERGIES No Active Allergies Current Outpatient Medications Medication Sig vit A/vit C/vit E/zinc/copper (PRESERVISION AREDS ORAL) Take by mouth. furosemide (LASIX) 40 mg tablet Take 1 tablet by mouth every other day. metoprolol succinate ER (TOPROL XL) 100 mg Take 1 tablet by mouth once charles (more content not included)... Normal [facility] COPPER BLOODon 09-19-2024 Copper [Mass/Vol] 128 ug/dL Normal 70-140 [facility] Comment on above: Order Comment: Speci men Type: BLOOD SPECIMENOrdering Facility: [facility] Address: [address] [place] [address] Result Comment: This test was developed, and its performance characteristics determined by the [facility] Department of Pathology and Laboratory Medicine. It has not been cleared or approved by the FDA. The [facility] Department of Pathology and Laboratory Medicine is regulated under CLIA as qualified to perform high-complexity testing. This test is used for clinical purposes. It should not be regarded as investigational or for research. Performed By: #### C SARAH, 5763-8 ####[facility] LABIA [id number] [place] [address] [place] Centromere Ab IF Ql (S)on Centromere Ab Qn (S) <0.2 Normal <1.[address] [facility] Comment on above: Order Comment: Speci men Type: BLOOD SPECIMENOrdering Facility: [facility] Address: [address] [place] [address] Result Comment: Anti -centromere antibody is used as in aid in diagnosis of systemic sclerosis. Clinical correlation is required. Test Methodology: Multiplex flow immunoassay. Performed By: #### 1 6570-4, 83561-0, ANAIFR, 73375-8, 90470-6, 63596-6, 64586-9, 61728-5, 88715-3, 38594-7 ####[facility] LABIA [id number] [place] [address] [place] CENTROMERE AB QUAL Negative Normal Negative [facility] Comment on above: Order Comment: Speci men Type: BLOOD SPECIMENOrdering Facility: [facility] Address: [address] [place] [address] Performed By: #### 1 6570-4, 47555-7, ANAIFR, 76740-7, 35100-6, 99522-1, 67586-9, 61019-5, 21880-6, 70882-9 ####[facility] LABIA [id number] [place] [address] [place] Chromatin Ab Qnon 09-19-2024 CHROMATIN AB QUAL Negative Normal Negative [facility] Comment on above: Order Comment: Speci men Type: BLOOD SPECIMENOrdering Facility: [facility] Address: [address] [place] [address] Performed By: #### 1 6570-4, 53994-4, ANAIFR, 37059-0, 94741-1, 76399-2, 07911-2, 37517-2, 79632-8, 95229-5 ####[facility] LABCLIA [id number] [place] [address] [place] Chromatin Ab SerPl-aCncon Chromatin Ab Qn <0.2 Normal <1.0 [facility] Comment on above: Order Comment: Speci men Type: BLOOD SPECIMENOrdering Facility: [facility] Address: [address] [place] [address] Result Comment: Test Methodology: Multiplex flow immunoassay. Performed By: #### 1 6570-4, 05655-2, ANAIFR, 01547-1, 35190-7, 62590-1, 35175-0, 98688-2, 17258-1, 08025-4 ####[facility] LABCLIA [id number] [place] [address] [place] Comprehensive metabolic 2000 panelon 09-19-2024 Albumin [Mass/Vol] 4.2 g/dL Normal 3.9-4.9 [facility] Comment on above: Order Comment: Speci men Type: BLOOD SPECIMENOrdering Facility: [facility] Address: [address] [place] [address] Performed By: #### 2 284-8, 63990-5, 2131-9, 6-3 ####[facility] LABCLIA [id number] [place] [address] [place] ALP [Catalytic activity/Vol] 114 U/L High 38-113 [facility] Comment on above: Order Comment: Speci men Type: BLOOD SPECIMENOrdering Facility: [facility] Address: [address] [place] [address] Performed By: #### 2 284-8, 43156-7, 2131-9, 6-3 ####[facility] LABCLIA [id number] [place] [address] [place] ALT [Catalytic activity/Vol] 20 U/L Normal 10-54 [facility] Comment on above: Order Comment: Speci men Type: BLOOD SPECIMENOrdering Facility: [facility] Address: [address] [place] [address] Performed By: #### 2 284-8, 77208-9, 2131-9, 6-3 ####[facility] LABCLIA [id number] [place] [address] [place] Anion gap [Moles/Vol] 8 mmol/L Normal 8-15 [facility] Comment on above: Order Comment: Speci men Type: BLOOD SPECIMENOrdering Facility: [facility] Address: [address] [place] [address] Performed By: #### 2 284-8, 40943-0, 2131-9, 6-3 ####[facility] LABCLIA [id number] [place] [address] [place] AST [Catalytic activity/Vol] 18 U/L Normal 14-40 [facility] Comment on above: Order Comment: Speci men Type: BLOOD SPECIMENOrdering Facility: [facility] Address: [address] [place] [address] Performed By: #### 2 284-8, 58669-3, 2131-9, 6-3 ####[facility] LABCLIA [id number] [place] [address] [place] Bilirubin [Mass/Vol] 0.9 mg/dL Normal 0.2-1.[address] [facility] Comment on above: Order Comment: Speci men Type: BLOOD SPECIMENOrdering Facility: [facility] Address: [address] [place] [address] Performed By: #### 2 284-8, 45524-7, 2131-9, 3016-3 ####[facility] LABCLIA [id number] [place] [address] [place] Calcium [Mass/Vol] 10.4 mg/dL High 8.5-10.2 [facility] Comment on above: Order Comment: Speci men Type: BLOOD SPECIMENOrdering Facility: [facility] Address: [address] [place] [address] Performed By: #### 2 284-8, 60667-5, 2131-9, 6-3 ####[facility] LABCLIA [id number] [place] [address] [place] Chloride [Moles/Vol] 103 mmol/L Normal 98-[address] [facility] Comment on above: Order Comment: Speci men Type: BLOOD SPECIMENOrdering Facility: [facility] Address: [address] [place] [address] Performed By: #### 2 284-8, 07490-8, 2131-9, 6-3 ####[facility] LABCLIA [id number] [place] [address] [place] CO2 [Moles/Vol] 30 mmol/L Normal 22-30 [facility] Comment on above: Order Comment: Speci men Type: BLOOD SPECIMENOrdering Facility: [facility] Address: [address] [place] [address] Performed By: #### 2 284-8, 24739-3, 2131-9, 6-3 ####[facility] LABCLIA [id number] [place] [address] [place] Creatinine [Mass/Vol] 0.87 mg/dL Normal 0.73-1.22 [facility] Comment on above: Order Comment: Speci men Type: BLOOD SPECIMENOrdering Facility: [facility] Address: [address] [place] [address] Performed By: #### 2 284-8, 61813-9, 2131-9, 6-3 ####[facility] LABCLIA [id number] [place] [address] [place] Creatinine and Glomerular filtration rate.predicted panel (S/P/Bld) 84 mL/min/1.73m??? Normal >=60 [facility] Comment on above: Order Comment: Speci men Type: BLOOD SPECIMENOrdering Facility: [facility] Address: [address] [place] [address] Result Comment: Brianda mated Glomerular Filtration Rate (eGFR) is calculated using the 2020 CKD-EPI creatinine equation. This equation utilizes serum creatinine, sex, and age as parameters. The creatinine assay has traceable calibration to isotope dilution-mass spectrometry. Refer to KDIGO guidelines for clinical interpretation. In patients with unstable renal function, e.g. those with acute kidney injury, the eGFR may not accurately reflect actual GFR. Performed By: #### 2 284-8, 52428-8, 2132-04, 6-3 ####[facility] LABCLIA [id number] [place] [address] [place] Glucose [Mass/Vol] 100 mg/dL High 74-99 [facility] Comment on above: Order Comment: Luna herndon Type: BLOOD SPECIMENOrdering Facility: [facility] Address: [address] [place] [address] Result Comment: The [place] [employer] (ADA) provides guidance for cutoff values for fasting glucose and random glucose. The ADA defines fasting as no caloric intake for at least 8 hours. Fasting plasma glucose results between 100 to 125 [...] Standards of Medical Care in Diabetes 2016, [place] [employer]. Diabetes Care. 2016.39(Suppl 1). Performed By: #### 2 284-8, 85165-0, 2131-9, 6-3 ####[facility] LABCLIA [id number] [place] [id number] [place] Potassium [Moles/Vol] 4.4 mmol/L Normal 3.7-5.1 [facility] Comment on above: Order Comment: Luna herndon Type: BLOOD SPECIMENOrdering Facility: [facility] Address: [address] [place], [place] [address] Performed By: #### 2 284-8, 72328-0, 2131-9, 6-3 ####[facility] LABCLIA [id number] [address] [address] [place] Protein [Mass/Vol] 6.6 g/dL Normal 6.3-8.0 [facility] Comment on above: Order Comment: Speci men Type: BLOOD SPECIMENOrdering Facility: [facility] Address: [address] [place] [address] Performed By: #### 2 284-8, 19947-5, 9, 6-3 ####[facility] LABIA [id number] [place] [address] [place] Sodium [Moles/Vol] 141 mmol/L Normal 136-144 [facility] Comment on above: Order Comment: Speci men Type: BLOOD SPECIMENOrdering Facility: [facility] Address: [address] [place] [address] Performed By: #### 2 284-8, 50151-3, 9, 6-3 ####[facility] LABIA [id number] [place] [id number] [place] Urea nitrogen [Mass/Vol] 22 mg/dL Normal 9-24 [facility] Comment on above: Order Comment: Speci men Type: BLOOD SPECIMENOrdering Facility: [facility] Address: [address] [place] [address] Performed By: #### 2 284-8, 10888-9, 2131-9, 6-3 ####[facility] LABIA [id number] [place] [id number] [place] DNA double strand Ab IA Qn ( S)on 09-19-2024 DNA ANTIBODY 15 IU/mL Normal <=200 [facility] Comment on above: Order Comment: Speci men Type: BLOOD SPECIMENOrdering Facility: [facility] Address: [address] [place] [address] Result Comment: Nega tive: <200 IU/mL Equivocal: 201-300 IU/mL Moderate Positive: 301-800 IU/mL Strong Positive: >801 IU/mL Performed By: #### 1 6570-4, 10392-0, ANAIFR, 57448-6, 05894-8, 75452-8, 51002-3, 31988-6, 82907-5, 57413-0 ####[facility] LABCLIA [id number] [place] [address] [place] DNA ANTIBODY QUALITATIVE INTERPRETATION Negative Normal Negative [facility] Comment on above: Order Comment: Speci men Type: BLOOD SPECIMENOrdering Facility: [facility] Address: [address] [place] [address] Performed By: #### 1 6570-4, 16735-8, ANAIFR, 58674-7, 13988-8, 50520-5, 58940-5, 99224-0, 90627-4, 79613-3 ####[facility] LABCLIA [id number] [place] [address] [place] B[place] ALEXANDER Jo1 Ab Ser-aCncon 2024 Amanda-1 extractable nuclear Ab Qn (S) <0.2 Normal <1.0 [facility] Comment on above: Order Comment: Speci men Type: BLOOD SPECIMENOrdering Facility: [facility] Address: [address] [place] [address] Performed By: #### 1 6570-4, 30933-4, ANAIFR, 22100-8, 72416-7, 56269-4, 75978-0, 85319-5, 71960-9, 50011-1 ####[facility] LABCLIA [id number] [place] [address] [place] B[place] ALEXANDER WORLD RENOWNED CHEF AND [employer]AUR[employer] OWNER Ab Ser-aCncon 2024 Ribonucleoprotein extractable nuclear Ab Qn (S) <0.2 Normal <1.0 [facility] Comment on above: Order Comment: Speci men Type: BLOOD SPECIMENOrdering Facility: [facility] Address: [address] [place] [address] Performed By: #### 1 6570-4, 16843-4, ANAIFR, 94030-7, 96552-2, 52479-8, 06065-4, 18298-3, 93679-7, 63374-9 ####[facility] LABCLIA [id number] [place] [address] [place] ALEXANDER SM IgG Ser-aCncon 2024 Elder extractable nuclear IgG Qn (S) <0.2 Normal <1.0 [facility] Comment on above: Order Comment: Speci men Type: BLOOD SPECIMENOrdering Facility: [facility] Address: [address] [place] [address] Performed By: #### 1 6570-4, 30022-3, ANAIFR, 20774-5, 59191-2, 37889-2, 76065-4, 05357-1, 92985-7, 96865-3 ####[facility] LABIA [id number] [place] [address] [place] ALEXANDER SS-A Ab Ser-aCncon 09-19 Sjogrens syndrome-A extractable nuclear Ab Qn (S) <0.2 Normal <1.0 [facility] Comment on above: Order Comment: Speci men Type: BLOOD SPECIMENOrdering Facility: [facility] Address: [address] [place] [address] Result Comment: Test Methodology: Multiplex flow immunoassay. Performed By: #### 1 6570-4, 28602-1, ANAIFR, 98682-5, 10205-4, 45831-1, 06911-9, 45071-6, 22144-3, 05612-2 ####[facility] LABCLIA [id number] [place] [address] [place] ALEXANDER SS-B Ab Ser-aCncon 09-19 Sjogrens syndrome-B extractable nuclear Ab Qn (S) <0.2 Normal <1.0 [facility] Comment on above: Order Comment: Luna herndon Type: BLOOD SPECIMENOrdering Facility: [facility] Address: [address] [place] [address] Result Comment: Anti -SSB (anti-La) antibody is used as an aid in diagnosis of a variety of systemic autoimmune diseases, especially for Sjogren's syndrome and systemic lupus erythematosus. Clinical correlation is required. Test Methodology: Multiplex flow immunoassay. Performed By: #### 1 6570-4, 37280-5, ANAIFR, 75948-5, 94824-3, 28091-4, 00854-9, 51757-5, 84413-2, 70879-5 ####[facility] LABCLIA [id number] [place] [address] [place] Folate SerPl-mCncon 09-19-19 Folate [Mass/Vol] ng/mL Normal >4.7 [facility] Comment on above: Order Comment: Speci katrina Type: BLOOD SPECIMENOrdering Facility: [facility] Address: [address] [place] [address] Result Comment: A re sult of > 20 ng/mL is not necessarily indicative of a pathologic or treatable condition: it reflects a limitation of the test methodology. Assay reference range: 4.8 to 24.2 ng/mL. Suitable for detection of folate deficiency. Reference: Folate III (Folate III) [package insert V 1.0 Gambian]. [facility], [place], [place]: June 2015. Performed By: #### 2 284-8, 08363-2, 2132-9, 3016-3 ####[facility] LABCLIA [id number] [place] [address] [place] HOMOCYSTEINEon 09-19-2024 Homocysteine [Moles/Vol] 10.4 umol/L NINF - 15.1 umol/L [facility] HbA1c (Bld)on 09-19-2024 Average glucose Estimated from glycated hemoglobin (Bld) [Mass/Vol] 120 mg/dL [facility] Comment on above: eAG: (Estimated aver age glucose) is a calculated value from HgbA1c and is event marketing representative of the average blood glucose level in the last 2-3 month period. HbA1c (Bld) [Mass fraction] 5.8 % High 4.3 - 5.6 % [facility] Comment on above: [place] Diabetes As sociation guidelines indicate that patients with HgbA1c in the range 5.7-6.4% are at increased risk for development of diabetes, and intervention by lifestyle modification may be beneficial. HgbA1c greater or equal to 6.5% is considered diagnostic of diabetes. Interpretation and review of laboratory results Abnormal [facility] Average glucose Estimated from glycated hemoglobin (Bld) [Mass/Vol] 120 mg/dL Normal [facility] Comment on above: Order Comment: Luna herndon Type: BLOOD SPECIMENOrdering Facility: [facility] Address: [address] [place] [address] Result Comment: eAG: (Estimated average glucose) is a calculated value from HgbA1c and is event marketing representative of the average blood glucose level in the last 2-3 month period. Performed By: #### 5 5454-3 ####[facility] LABCLIA [id number] [place] [address] [place] HbA1c (Bld) [Mass fraction] 5.8 % High 4.3-5.6 [facility] Comment on above: Order Comment: Luna herndon Type: BLOOD SPECIMENOrdering Facility: [facility] Address: [address] [place] [address] Result Comment: [place] Diabetes Association guidelines indicate that patients with HgbA1c in the range 5.7-6.4% are at increased risk for development of diabetes, and intervention by lifestyle modification may be beneficial. HgbA1c greater or equal to 6.5% is considered diagnostic of diabetes. Performed By: #### 5 5454-3 ####[facility] LABCLIA [id number] [place] [address] [place] Hcys SerPl-sCncon 09-19-2024 Homocysteine [Moles/Vol] 10.4 umol/L Normal <15.1 [facility] Comment on above: Order Comment: Speci men Type: BLOOD SPECIMENOrdering Facility: [facility] Address: [address] [place] [address] Performed By: #### 1 3965-9 ####[facility] LABCLIA [id number] [place] [address] [place] Homocysteine [Moles/Vol]on 0 09-19-2024 Interpretation and review of laboratory results Normal [facility] Amanda-1 extractable nuclear Ab Qn (S)on 09-19-2024 AMANDA 1 ANTIBODY QUAL Negative Normal Negative [facility] Comment on above: Order Comment: Speci men Type: BLOOD SPECIMENOrdering Facility: [facility] Address: [address] [place] [address] Result Comment: Anti -AMANDA-1 antibody is used as an aid in diagnosis of polymyositis and dermatomyositis especially with pulmonary involvement. A negative result cannot rule out polymyositis or dermatomyositis. Clinical correlation is required. Test Methodology: Multiplex flow immunoassay. Performed By: #### 1 6570-4, 69762-3, ANAIFR, 01484-0, 91467-2, 66986-7, 16543-4, 08678-9, 24198-7, 84632-4 ####[facility] LABIA [id number] [place] [address] [place] Prot Ur-mCncon 09-19-2024 Protein (U) [Mass/Vol] 128 mg/dL High 0-20 [facility] Comment on above: Order Comment: Speci men Type: URINE SPECIMENOrdering Facility: [facility] Address: [address] [place] [address] Performed By: #### 2 888-6 ####[facility] LABIA [id number] [place] [address] [place] Ribonucleoprotein extractabl e nuclear Ab Qn (S)on 09-19-2024 ANTI-WORLD RENOWNED CHEF [employer]NER QUAL Negative Normal Negative [facility] Comment on above: Order Comment: Speci men Type: BLOOD SPECIMENOrdering Facility: [facility] Address: [address] [place] [address] Performed By: #### 1 6570-4, 34013-1, ANAIFR, 64281-5, 89930-6, 95136-3, 18459-7, 53131-1, 71057-3, 52676-4 ####[facility] LABCLIA [id number] [place] [address] [place] RIBOSOMAL WORLD RENOWNED CHEF AND [employer] OWNER QUAL Negative Normal Negative [facility] Comment on above: Order Comment: Speci men Type: BLOOD SPECIMENOrdering Facility: [facility] Address: [address] [place] [address] Result Comment: Anti -Ribosomal RNA (Ribosomal P) antibody is used as an aid in diagnosis of systemic autoimmune diseases especially systemic lupus erythematosus and mixed connective tissue disease. Cross-reactivity with Anti-elder antibody is not uncommon. Clinical correlation is required. Test Methodology: Multiplex flow immunoassay. Performed By: #### 1 6570-4, 37745-0, ANAIFR, 98985-4, 02016-1, 68235-9, 76942-7, 39965-2, 04099-4, 22919-9 ####[facility] LABCLIA [id number] [place] [address] [place] SCL-70 extractable nuclear I gG IA Qn (S)on 09-19-2024 SCLERODERMA AB QUAL Negative Normal Negative [facility] Comment on above: Order Comment: Speci men Type: BLOOD SPECIMENOrdering Facility: [facility] Address: [address] [place] [address] Performed By: #### 1 6570-4, 52961-8, ANAIFR, 29803-6, 44562-9, 55538-6, 34853-1, 89612-6, 12478-2, 31833-3 ####[facility] LABCLIA [id number] [place] [address] [place] SCLERODERMA IGG AB <0.2 Normal <1.0 [facility] Comment on above: Order Comment: Speci men Type: BLOOD SPECIMENOrdering Facility: [facility] Address: [address] [place] [address] Result Comment: Scl- 70/Scleroderma antibody test is used as an aid in diagnosis of systemic sclerosis especially the diffuse cutaneous form. A negative result cannot rule out systemic sclerosis. The final interpretation should consider clinical picture and other test results such as anti-centromere antibody. Test Methodology: Multiplex flow immunoassay. Performed By: #### 1 6570-4, 91569-8, ANAIFR, 83335-9, 97122-4, 66394-6, 57218-0, 46523-2, 38604-2, 56731-6 ####[facility] LABIA [id number] [place] [address] [place] Sjogrens syndrome-A extracta ble nuclear Ab Qn (S)on 09-19-2024 SSA ANTIBODY QUAL Negative Normal Negative [facility] Comment on above: Order Comment: Speci katrina Type: BLOOD SPECIMENOrdering Facility: [facility] Address: [address] [place] [address] Performed By: #### 1 6570-4, 51943-7, ANAIFR, 94675-2, 94434-1, 33637-4, 98786-2, 78851-8, 70969-9, 01198-3 ####[facility] LABIA [id number] [place] [address] [place] Sjogrens syndrome-B extracta ble nuclear Ab Qn (S)on 09-19-2024 SSB ANTIBODY QUAL Negative Normal Negative [facility] Comment on above: Order Comment: Mervati katrina Type: BLOOD SPECIMENOrdering Facility: [facility] Address: [address] [place] [address] Performed By: #### 1 6570-4, 34198-6, ANAIFR, 29019-1, 27837-7, 00071-9, 53021-7, 69793-6, 97851-5, 50294-5 ####[facility] LABIA [id number] [place] [address] [place] Elder extractable nuclear Ig G Qn (S)on 09-19-2024 SM ANTIBODY QUAL Negative Normal Negative [facility] Comment on above: Order Comment: Speci men Type: BLOOD SPECIMENOrdering Facility: [facility] Address: [address] [place] [address] Result Comment: Anti -Sm (Elder) antibody is used as an aid in diagnosis of systemic lupus erythematosus and its presence is associated with renal disease. A negative result cannot rule out systemic lupus erythematosus. Clinical correlation is required. Test Methodology: Multiplex flow immunoassay. Performed By: #### 1 6570-4, 57742-2, ANAIFR, 71763-5, 02434-8, 43809-5, 66261-8, 64410-3, 70041-2, 90303-0 ####[facility] [id number] [place] [address] [place] TSH SerPl-aCncon 09-19-2024 TSH Qn 1.320 m[IU]/L Normal 0.270-4.200 [facility] Comment on above: Order Comment: Speci men Type: BLOOD SPECIMENOrdering Facility: [facility] Address: [address] [place] [address] Performed By: #### 2 284-8, 28126-4, 2132-9, 3016-3 ####[facility] [id number] [place] [address] [place] URINE PROTEIN ELECTROPHORESI S RANDOM (P)on 09-19-2024 Albumin Elph (U) [Mass fraction] 70.89 % Normal [facility] Comment on above: Order Comment: Speci men Type: URINE SPECIMENOrdering Facility: [facility] Address: [address] [place] [address] Performed By: #### L [id number] ####[facility] LABIA [id number] [place] [address] [place] Alpha 1 globulin Elph (U) [Mass fraction] 5.67 % Normal [facility] Comment on above: Order Comment: Speci men Type: URINE SPECIMENOrdering Facility: [facility] Address: [address] [place] [address] Performed By: #### L [id number] ####[facility] LABIA [id number] [place] [address] [place] Alpha 2 globulin Elph (U) [Mass fraction] 5.73 % Normal [facility] Comment on above: Order Comment: Speci men Type: URINE SPECIMENOrdering Facility: [facility] Address: [address] [place] [address] Performed By: #### L [id number] ####[facility] LABIA [id number] [place] [address] [place] Beta globulin Elph (U) [Mass fraction] 10.25 % Normal [facility] Comment on above: Order Comment: Speci men Type: URINE SPECIMENOrdering Facility: [facility] Address: [address] [place] [address] Performed By: #### L [id number] ####[facility] LABIA [id number] [place] [address] [place] Gamma globulin Elph (U) [Mass fraction] 7.46 % Normal [facility] Comment on above: Order Comment: Speci men Type: URINE SPECIMENOrdering Facility: [facility] Address: [address] [place] [address] Performed By: #### L [id number] ####[facility] LABIA [id number] [place] [address] [place] Protein Fractions Elph Jerry (U) [Interp] No definitive M protein is identified on protein electrophoresis. Normal No definitive M protein is identified on protein electrophore sis. [facility] Comment on above: Order Comment: Speci men Type: URINE SPECIMENOrdering Facility: [facility] Address: [address] [place] [address] Performed By: #### L [id number] ####[facility] LABIA [id number] [place] [id number] [facility] STAFF REVIEW (URINE ELECTRO) Reviewed by Pamela Abbott M.D., Ph.D Normal [facility] Comment on above: Order Comment: Speci men Type: URINE SPECIMENOrdering Facility: [facility] Address: [address] [place] [address] Performed By: #### L [id number] ####[facility] [id number] VITAMIN B6/PYRIDOXINon 09-19 VITAMIN B6 46.4 nmol/L Normal 20.0-125.0 [facility] Comment on above: Order Comment: Speci men Type: BLOOD SPECIMENOrdering Facility: [facility] Address: [address] [place] [address] Result Comment: INTE RPRETIVE INFORMATION: Vitamin B6 (Pyridoxal 5-Phosphate) Pyridoxal 5'-phosphate measured in a specimen collected following an 8-hour or overnight fast accurately indicates vitamin B6 nutritional status. Non-fasting specimen concentration reflects recent vitamin intake. This test was developed and its performance characteristics determined by [facility] [employer]. It has not been cleared or approved by the US Food and Drug Administration. This test was performed in a CLIA certified laboratory and is intended for clinical purposes. Performed By: [facility] [address] [place] [address] Entry Level Installation Technician: Marv Engel MD, PhD CLIA Number: [id number] Performed By: #### V [id number] ####[facility] LABORATORIESIA [id number] [place] [address] Vit B12 SerPl-mCncon 025 Cobalamin (Vitamin B12) [Mass/Vol] 882 pg/mL Normal 232-1245 [facility] Comment on above: Order Comment: Speci men Type: BLOOD SPECIMENOrdering Facility: [facility] Address: [address] [place] [address] Performed By: #### 2 284-8, 07994-5, 2132-9, 3016-3 ####[facility] [id number] [place] [address] [place] Zinc SerPl-mCncon 09-19-2024 Zinc [Mass/Vol] 68 ug/dL Normal 60-120 [facility] Comment on above: Order Comment: Speci men Type: BLOOD SPECIMENOrdering Facility: [facility] Address: [facility] [place] [address] Result Comment: This test was developed, and its performance characteristics determined by the [facility] Department of Pathology and Laboratory Medicine. It has not been cleared or approved by the FDA. The [facility] Department of Pathology and Laboratory Medicine is regulated under CLIA as qualified to perform high-complexity testing. This test is used for clinical purposes. It should not be regarded as investigational or for research. Performed By: #### C SARAH, 5763-8 ####[facility] LABCLIA [id number] [place] [address] [place] CNPTamiko 08-01-2024 CNPN Telephone (NIQ) ELYSE MALONEY ([id number]) 1935 M Date Time Provider Department 08/01/24 NEUROLOGY PROVIDER NIQ During your visit today, we recorded the following information about you: Erika Maria 08/01/2024 12:15 PM Signed Referral source: Guero Christine MD ([facility]) Reason for visit: gait issues, opinion on Parkinson's disease External records: Sent with referral Triage: Not required Financial clearance: Not required to schedule Patient already completed a recent movement disorders consult with Dr. Marlene Oliveira. Allergies As of Date: 08/01/2024 (No Active Allergies) Date Reviewed: 06/28/2024 Reviewed by: Osiris Hyde MA - Fully Assessed Reason for Visit: Received Outside Medical Records [3576] Cmt: External referral to [facility] [place] Prescriptions as of 08/01/2024 - furosemide (LASIX) 40 mg tablet Take 1 tablet by mouth every other day. - metoprolol succinate ER (TOPROL XL) 100 mg Take 1 tablet by mouth once daily. - OTC PRODUCT Take 1 tablet by mouth twice daily. PreserVision - atorvastatin (LIPITOR) 40 mg tablet Take 1 tablet by mouth daily at bedtime. For cholesterol. VA medication. - lisinopril (ZESTRIL, PRINIVIL) 40 mg tablet Take 1 tablet by mouth once daily. VA medication. - CPAP Initiate CPAP @ 6 cm of water with humidification. Mask (per patient preference) optional chin strap (if indicated) , filters, tubing, humidifier and lifetime supplies. - tamsulosin (FLOMAX) 0.4 mg Take 1 capsule by mouth daily at bedtime. - apixaban (ELIQUIS) 5 mg tab(s) Take 5 mg by mouth twice daily. - finasteride (PROSCAR) 5 mg tablet Take 1 tablet by mouth once daily. VA medication. - COMPOUNDED PRESCRIPTION CPAP mask, tubing, and supplies. Dx: ICD9: 327.23, ICD10: G47.33 - COMPOUNDED PRESCRIPTION replacment cpap machine with heated humifier, replacemnt mask and supplies. set presssure at 6 cm and H2o. ISAAC dx. - MULTIVITAMIN ORAL TAB Take one(1) tablet daily. 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10] 09/21/2020 Hypomagnesemia [E83.42] 02/18/2022 05/24/2023 Impaired fasting glucose [R73.01] 02/18/2022 Vertigo [R42] 05/31/2022 11/22/2023 Orthostatic dizziness [R42] 11/22/2023 05/20/2024 Abnormal gait [R26.9] 11/22/2023 Spinal stenosis of lumbar region [M48.061] 02/07/2024 Unsteadiness on feet [R26.81] 02/07/2024 Cervical stenosis of spinal canal [M48.02] 02/07/2024 At risk for falling [Z91.81] 05/20/2024 Encounter Status:Closed by ERIKA MARIA on 08/01/24 [facility] Joanne 07-08-2024 TRI Telephone (KRYSTIAN) ELYSE MALONEY ([id number]) 1935 M Date Time Provider Department 07/08/24 MARSHA ARIAS During your visit today, we recorded the following information about you: Raheem Oliver LPN 07/08/2024 4:30 PM Signed calling to request a disk for pt's MRI done on 01-24-24. Pt has apt with Dr. Guero Christine Orthopedic surgeon on 07-10-24 at [facility]. Please advise when ready for worm picker. ALEX Kumari Erica, RIVERA 07/08/2024 4:39 PM Signed CD READY FOR HEADING REPAIRER AT [facility] Pt is aware Allergies As of Date: 07/08/2024 (No Active Allergies) Date Reviewed: 06/28/2024 Reviewed by: Osiris Hyde MA - Fully Assessed Reason for Visit: requesting a disk [Other] Cmt: MRI disk being requested Prescriptions as of 07/09/2024 - furosemide (LASIX) 40 mg tablet Take 1 tablet by mouth every other day. - metoprolol succinate ER (TOPROL XL) 100 mg Take 1 tablet by mouth once daily. - OTC PRODUCT Take 1 tablet by mouth twice daily. PreserVision - atorvastatin (LIPITOR) 40 mg tablet Take 1 tablet by mouth daily at bedtime. For cholesterol. VA medication. - lisinopril (ZESTRIL, PRINIVIL) 40 mg tablet Take 1 tablet by mouth once daily. VA medication. - CPAP Initiate CPAP @ 6 cm of water with humidification. Mask (per patient preference) optional chin strap (if indicated) , filters, tubing, humidifier and lifetime supplies. - tamsulosin (FLOMAX) 0.4 mg Take 1 capsule by mouth daily at bedtime. - apixaban (ELIQUIS) 5 mg tab(s) Take 5 mg by mouth twice daily. - finasteride (PROSCAR) 5 mg tablet Take 1 tablet by mouth once daily. VA medication. - COMPOUNDED PRESCRIPTION CPAP mask, tubing, and supplies. Dx: ICD9: 327.23, ICD10: G47.33 - COMPOUNDED PRESCRIPTION replacment cpap machine with heated humifier, replacemnt mask and supplies. set presssure at 6 cm and H2o. ISAAC dx. - MULTIVITAMIN ORAL TAB Take one(1) tablet daily. 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10] 09/21/2020 Hypomagnesemia [E83.42] 02/18/2022 05/24/2023 Impaired fasting glucose [R73.01] 02/18/2022 Vertigo [R42] 05/31/2022 11/22/2023 Orthostatic dizziness [R42] 11/22/2023 05/20/2024 Abnormal gait [R26.9] 11/22/2023 Spinal stenosis of lumbar region [M48.061] 02/07/2024 Unsteadiness on feet [R26.81] 02/07/2024 Cervical stenosis of spinal canal [M48.02] 02/07/2024 At risk for falling [Z91.81] 05/20/2024 Encounter Status:Closed by RAHEEM OLIVER on 07/09/24 [facility] CNOVon 06-28-2024 CNOV Office Visit ([facility] ) ELYSE MALONEY ([id number]) 1935 M Date Time Provider Department 06/28/24 8:30 AM MARLENE OLIVEIRA [facility] During your visit today, we recorded the following information about you: Pulse Blood pressure Weight Height 58/minute 133/66 88 kg 1.778 m Marlene Oliveira MD 07/23/2024 11:45 PM Signed NEW PATIENT EVALUATION Subjective HPI Elyse Maloney is a 88 year old ambidextrous / right handed male who presents for evaluation of gait impairment. Marsha Arias PA-C is the referring provider. Dr. Ang Vickers MD is the PCP. Started with a feeling of swaying while standing. Doesn't seem to pick his feet up enough while walking. Has fallen a few times. - February tripped on the leg of a table - Missed a step [place] baseball stadium and didn't see a step - Tripped on a step coming into the house from the garage His is concerned about PD after reading about it because for the past 6-12 months has lost his smell and taste, though he notes this is has been present for several years. Recently she was cooking ribs in the house all day and he couldn't smell them. His hands are a little bit numb and not as strong. No problems with manual dexterity. Doesn't notice numbness in his feet. No constipation. No dream enactment, uses CPAP for ISAAC. Sleeps from [id number] but then at night might fall asleep when watching TV. Medications: Current Outpatient Medications Medication Sig Dispense Refill furosemide (LASIX) 40 mg tablet Take 1 tablet by mouth every other day. metoprolol succinate ER (TOPROL XL) 100 mg Take 1 tablet by mouth once daily. OTC PRODUCT Take 1 tablet by mouth twice daily. PreserVision atorvastatin (LIPITOR) 40 mg tablet Take 1 tablet by mouth daily at bedtime. For cholesterol. VA medication. lisinopril (ZESTRIL, PRINIVIL) 40 mg tablet Take 1 tablet by mouth once daily. VA medication. CPAP Initiate CPAP @ 6 cm of water with humidification. Mask (per patient preference) optional chin strap (if indicated) , filters, tubing, humidifier and lifetime supplies. 1 Each 0 tamsulosin (FLOMAX) 0.4 mg Take 1 capsule by mouth daily at bedtime. 30 capsule 2 apixaban (ELIQUIS) 5 mg tab(s) Take 5 mg by mouth twice daily. finasteride (PROSCAR) 5 mg tablet Take 1 tablet by mouth once daily. VA medication. COMPOUNDED PRESCRIPTION CPAP mask, tubing, and supplies. Dx: ICD9: 327.23, ICD10: G47.33 1 Each 0 COMPOUNDED PRESCRIPTION replacment cpap machine with heated humifier, replacemnt mask and supplies. set presssure at 6 cm and H2o. ISAAC dx. 1 Each 11 MULTIVITAMIN ORAL TAB Take one(1) tablet daily. 0 No current facility-administered medications for this visit. ROS ROS: His ROS was positive for that mentioned in the HPI. Otherwise a 10-point ROS was completed and was negative. ALLERGIES No Active Allergies Past Medical History: PAST MEDICAL HISTORY Diagnosis Date Acquired left foot drop 1998 Atrial fibrillation (HCC) 04/29/2020 Diverticulosis of colon (without mention of hemorrhage) 04/05/2005 Herniated lumbar intervertebral disc 1998 Left foot drop Hydrocele, bilateral 06/20/2022 Obstructive sleep apnea 08/16/2010 Pure hypercholesterolemia 04/05/2005 SLEEP APNEA NOS 12/29/2008 Wearing CPAP 8 hours a night as of 01-03 Last sleep study about age 70 Unspecified essential hypertension 04/05/2005 Unspecified hyperplasia of prostate without urinary obstruction and other lower urinary tract symptoms (LUTS) 05/21/2010 Family History: FAMILY HISTORY Problem Relation Age of Onset Hypertension Mother dec. age 88 Heart Father dec. age 83, CHF Diabetes Father None Sister Sister diagnosed with AD 2 years ago Social History: Social History Tobacco Use Smoking status: Former Current packs/day: 0.00 Average packs/day: 0.5 packs/day for 20.0 years (10.0 ttl pk-yrs) Types: Cigarettes Start date: 08/28/1957 Quit date: 08/28/1977 Years since quittin.8 Smokeless tobacco: Never Substance Use Topics Alcohol use: Yes Alcohol/week: 3.3 standard drinks of alcohol Types: 2 Cans of Beer (12oz), 1 Martini/Manhattan Drinks per week Drug use: No Never a heavy drinker Objective 06/28/24 0817 BP: 133/66 BP Site: Right Arm BP Position: Sitting BP Cuff Size: Regular Adult Pulse: (!) 58 SpO2: 97% Weight: 88 kg (194 lb 0.1 oz) Height: 177.8 cm (5' 10) Physical Examination General Appearance: Well appearing, alert, in no acute distress, well-hydrated, well nourished. Head: Normocephalic Neck: Supple Heart: RRR Peripheral Pulses: Normal Neurologic Examination Mental Status: He is alert. He is fully oriented. Attention is intact. Recent and remote memory is intact. Language shows normal comprehension and fluency. Praxis is normal. Affect is appropriate. Cranial Nerves: Pupils are equal and reactive to light. Extraocular mov (more content not included)... Normal [facility] CNOVon 05-22-2024 CNOV Office Visit ([facility] ) ELYSE MALONEY ([id number]) 1935 M Date Time Provider Department 05/22/24 3:30 PM MARSHA ARIAS During your visit today, we recorded the following information about you: Pulse Respiration Blood pressure Weight 56/minute 16/minute 149/80 85.8 kg Marsha Arias PA-C 05/22/2024 4:37 PM Signed ESTABLISHED PATIENT VISIT Last visit: 01/26/24 ASSESSMENT/PLAN: 1. Unsteadiness on feet - ICD9: 781.2, ICD10: R26.81 (primary diagnosis) 2. Spinal stenosis of lumbar region, unspecified whether neurogenic claudication present - ICD9: 724.02, ICD10: M48.061 3. Cervical stenosis of spinal canal - ICD9: 723.0, ICD10: M48.02 4. Orthostatic dizziness - ICD9: 780.4, ICD10: R42 Patient with persistent orthostatic dizziness. Described as an unsteadiness, denies any presyncope or room spinning sensation. MRI of the brain shows no significant etiology, EMG showed significant and diffuse lumbar radiculopathy, difficulty assessing presence of neuropathy. Patient was found to have low B12 level and has been supplementing this, is unsure if there is any benefit. MRI of the cervical and lumbar spine show significant degeneration, both with central stenosis as well as foraminal stenosis. Did refer to spine, but patient deferring this as he has no interest in future surgeries. Discussed referral to physical therapy for both dizziness, formal stenosis in the cervical and lumbar region. Patient is agreeable and will schedule this today. Patient without any recent falls, no bowel bladder changes or saddle anesthesia. Encouraged supplementing B12 for 6 months and then will redraw at that time. Encouraged conservative therapy including water intake, slow transitions from sitting to standing. No new symptoms or concerns at this time that would warrant additional workup. Patient and family agreeable to treatment plan of care this time, questions were answered. Patient follow-up in 3 months or sooner should any symptoms change or worsen. Marsha Arias PA-C CHIEF COMPLAINT: follow up HISTORY OF PRESENT ILLNESS: Elyse Maloney is a 88 year old male, There were no vitals taken for this visit. with a PMH significant for A-fib on Eliquis, hypertension, hyperlipidemia, CAD, ISAAC . Last seen on 01/26/24 for unsteadiness, dizziness. MRI brain normal, did have low B12 and lumbar radiculopathy. MRI of the cervical and lumbar spine showing significant degeneration in the lumbar spine. Deferred spinal referral due to not wanting surgeries. PCP would like referral to movement due to concerns for atypical parkinsonism. Patient presents with his for follow-up appointment. Notes that he has had 2 falls since last appointment, first of which was when he was at a baseball game, went to step down from his seat and did not realize there was a step missing and he fell onto his left side injuring his ribs and left upper extremity. Did not hit his head. Had a second fall on February 28 when he was at his daughter's house and tripped causing him to fall forward and hitting his head. Due to being on Eliquis he was sent to the emergency department where CT of the head was negative at that time. He has not fallen since, but does have difficulty His feet which is very concerning to his . She is concerned that he is going to fall again, notes he goes up and down stairs frequently and she does not feel comfortable with him doing this. Uses a walking cane to get around the house, does have a walker but does not like to use it. Did go to physical therapy and felt his legs improved in strength but was unsure if it was helpful for his gait. Of note, still compliant with B12 supplementation. At Reports primary concern today is Parkinson's disease. Saw primary care and they are concerned that gait abnormality was secondary to parkinsonism. Patient without any history of tremor, no REM sleep disorder, no constipation, no positional lightheadedness orthostatic symptoms, no family history of parkinsonism. No micrographia, hallucinations, no voice change. Patient denies any apathy, notes that he is going out with family doing things he likes to do. However, does note that he used to like doing puzzles but no longer does this more. Does report some anosmia over the last few years, this was just brought to his 's attention when she asked him if something tasted different. He states that he would be able to tell her and believes this has been the case for the last few years. Also notes he was exposed to pesticides as he [place] up [place] farm when he was younger. REVIEW OF SYSTEMS GENERAL:No weight loss, malaise or fevers. HEENT:Negative for frequent or significant headaches, No changes in hearing or vision, no nose bleeds or other nasal problems NECK:Negative for lumps, goiter, pain and significant neck swelling RESPI (more content not included)... Normal [facility] CNOVon 05-20-2024 CNOV Office Visit ([facility] ) ELYSE MALONEY ([id number]) 1935 M Date Time Provider Department 05/20/24 12:40 PM ANG VICKERS [facility] During your visit today, we recorded the following information about you: Temperature Pulse Respiration Blood pressure 96.8 degrees 72/minute 12/minute 151/76 Weight 85.6 kg Ang Vickers MD 05/20/2024 1:41 PM Signed This note was created using [employer]. Subjective Elyse Maloney is a 88 year old male. He continued to have gait and stance unsteadiness and falls. He had no dizziness. 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 He was seen in the ED for closed head injury 02/27/24. He fell and went to the local urgent care 05/05/24 where he had contusion of the left knee and left chest. Review of Systems Constitutional: Negative for fatigue and fever. Respiratory: Negative for shortness of breath. Cardiovascular: Positive for leg swelling. Negative for chest pain and palpitations. Musculoskeletal: Positive for gait problem. Neurological: Positive for weakness. Negative for dizziness, tremors and headaches. 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) Obstructive Sleep Apnea Other Seborrheic Keratosis Vertebral Artery Stenosis, Left Atrial Fibrillation (Hcc) Coronary Atherosclerosis Impaired Fasting Glucose Abnormal Gait Spinal Stenosis of Lumbar Region Unsteadiness On Feet Cervical Stenosis of Spinal Canal At Risk for Falling Social History Tobacco Use Smoking status: Former Current packs/day: 0.00 Average packs/day: 0.5 packs/day for 20.0 years (10.0 ttl pk-yrs) Types: Cigarettes Start date: 08/28/1957 Quit date: 08/28/1977 Years since quittin.7 Smokeless tobacco: Never Substance Use Topics Alcohol use: Yes Alcohol/week: 3.3 standard drinks of alcohol Types: 2 Cans of Beer (12oz), 1 Martini/Manhattan Drinks per week Drug use: No Current Outpatient Medications Medication Sig metoprolol succinate ER (TOPROL XL) 100 mg Take 75 mg by mouth once daily. OTC PRODUCT Take 1 tablet by mouth twice daily. PreserVision atorvastatin (LIPITOR) 40 mg tablet Take 1 tablet by mouth daily at bedtime. For cholesterol. VA medication. furosemide (LASIX) 20 mg tablet Take 1 tablet by mouth three times a week. Mon, Mon, Monday. VA medication. (Patient taking differently: Take 40 mg by mouth three times a week. Mon, Mon, Monday. VA medication.) lisinopril (ZESTRIL, PRINIVIL) 40 mg tablet Take 1 tablet by mouth once daily. VA medication. CPAP Initiate CPAP @ 6 cm of water with humidification. Mask (per patient preference) optional chin strap (if indicated) , filters, tubing, humidifier and lifetime supplies. tamsulosin (FLOMAX) 0.4 mg Take 1 capsule by mouth daily at bedtime. apixaban (ELIQUIS) 5 mg tab(s) Take 5 mg by mouth twice daily. finasteride (PROSCAR) 5 mg tablet Take 1 tablet by mouth once daily. VA medication. COMPOUNDED PRESCRIPTION CPAP mask, tubing, and supplies. Dx: ICD9: 327.23, ICD10: G47.33 COMPOUNDED PRESCRIPTION replacment cpap machine with heated humifier, replacemnt mask and supplies. set presssure at 6 cm and H2o. ISAAC dx. MULTIVITAMIN ORAL TAB Take one(1) tablet daily. No current facility-administered medications for this visit. Objective BP 151/76 (BP Site: Left Arm, BP Position: Sitting, BP Cuff Size: Large Adult) Pulse 72 Temp 36 ?C (96.8 ?F) (Temporal) Resp 12 Wt 85.6 kg (188 lb 11.4 oz) BMI 28.69 kg/m? Physical Exam Constitutional: General: He is not in acute distress. HENT: Head: Atraumatic. Cardiovascular: Rate and Rhythm: Normal rate and regular rhythm. Heart sounds: No murmur heard. No gallop. Pulmonary: Breath sounds: Normal breath sounds. Musculoskeletal: Right lower le+ Pitting Edema present. Left lower le+ Pitting Edema present. Neurological: General: No focal deficit present. Mental Status: He is alert. Motor: Abnormal muscle tone present. No tremor. Gait: Gait abnormal. Assessment and Plan 1. At risk for falling - ICD9: V15.88, ICD10: Z91.81 (primary diagnosis) - I strongly recommended using his preferred assistive device (walking stick) at all times. - I will recommended movement disorder clinic to neurology provider. 2. Need for influenza vaccination - ICD9: V04.81, ICD10: Z23 - INFLUENZA VACCINE, PRSV FREE, AGE 65+ YR, HIGH DOSE, TRIVALENT (FLUZONE HIGH-DOSE) 3. Unsteadiness on feet - ICD9: 781.2, ICD10: R26.81 See #1. 4. Longstanding persistent atrial fibrillation (HCC) - ICD9: 427.31, ICD10: I48.11 Controlled. 5. Essential hypertension - ICD9: 401.9, ICD10: I10 Fair. - Continue per cardiology. Medication list updated per VA information. - FUROSEMIDE (more content not included)... Normal [facility] Basic Metabolic Profile (BMP )on 04-12-2024 BUN/CRE 22.8 RATIO High 10-20 [facility] Comment on above: Performed By: #### L 500.2500 #### [facility] [address] [place], [place], [id number] (844 CA,Total 10.1 mg/dL Normal 8.5-10.1 [facility] Comment on above: Performed By: #### L 500.2500 #### [facility] [address] [place], [address] Chloride [Moles/Vol] 106 mmol/L Normal 98-107 [facility] Comment on above: Performed By: #### L 500.2500 #### [facility] [address] [place], [address] CO2 [Moles/Vol] 28.0 mmol/L Normal 21.0-32.0 [facility] Comment on above: Performed By: #### L 500.2500 #### [facility] [address] [place], [address] Creatinine [Mass/Vol] 1.01 mg/dL Normal 0.70-1.30 [facility] Comment on above: Result Comment: The validity of the calculated GFR GFRAA in patients over 70 years has not been determined. Clinical correlation is essential. Performed By: #### L 500.2500 #### [facility] [address] [place], [address] EST GFR - AA 90 mL/min Normal >60 [facility] Comment on above: Result Comment: Afri can Tunisian GFR Calc Performed By: #### L 500.2500 #### [facility] [address] [place], [address] GAP 5 Normal 5-15 [facility] Comment on above: Performed By: #### L 500.2500 #### [facility] [address] [place], [address] GFR/1.73 sq M.predicted among non-blacks MDRD (S/P/Bld) [Vol rate/Area] 74 mL/min/{1.73_m2} Normal >60 [facility] Comment on above: Result Comment: Non- GFR Calc Performed By: #### L 500.2500 #### [facility] [address] [place], [address] Glucose [Mass/Vol] 103 mg/dL Normal 74-106 [facility] Comment on above: Result Comment: Fast ing Glucose result from 100 to 125 mg/dL suggests IMPAIRED HOMEOSTASIS per A.D.A. criteria. Performed By: #### L 500.2500 #### [facility] [address] [place], [address] Potassium [Moles/Vol] 4.7 mmol/L Normal 3.5-5.1 [facility] Comment on above: Performed By: #### L 500.2500 #### [facility] [address] [place], [address] Sodium [Moles/Vol] 139 mmol/L Normal 136-145 [facility] Comment on above: Performed By: #### L 500.2500 #### [facility] [address] [place], [address] Urea nitrogen [Mass/Vol] 23 mg/dL High 7-18 [facility] Comment on above: Performed By: #### L 500.2500 #### [facility] [address] [place], [address] BNP,B-Type NATRIURETIC PEPTI Esa 04-04-2024 Natriuretic peptide B (Bld) [Mass/Vol] 670.7 pg/mL High 0-100 [facility] Comment on above: Performed By: #### L 501.9520, L100.0100, L503.6620, L500.2500 #### [facility] [address] [place], [address] Basic Metabolic Profile (BMP )on 04-04-2024 BUN/CRE 19.1 RATIO Normal 10-20 [facility] Comment on above: Performed By: #### L 501.9520, L100.0100, L503.6620, L500.2500 #### [facility] [address] [place], [address] CA,Total 10.2 mg/dL High 8.5-10.1 [facility] Comment on above: Performed By: #### L 501.9520, L100.0100, L503.6620, L500.2500 #### [facility] [address] [place], [address] Chloride [Moles/Vol] 103 mmol/L Normal 98-107 [facility] Comment on above: Performed By: #### L 501.9520, L100.0100, L503.6620, L500.2500 #### [facility] [address] [place], [address] CO2 [Moles/Vol] 33.0 mmol/L High 21.0-32.0 [facility] Comment on above: Performed By: #### L 501.9520, L100.0100, L503.6620, L500.2500 #### [facility] [address] [place], [address] Creatinine [Mass/Vol] 0.89 mg/dL Normal 0.70-1.30 [facility] Comment on above: Result Comment: The validity of the calculated GFR GFRAA in patients over 70 years has not been determined. Clinical correlation is essential. Performed By: #### L 501.9520, L100.0100, L503.6620, L500.2500 #### [facility] [address] [place], [address] EST GFR - AA 104 mL/min Normal >60 [facility] Comment on above: Result Comment: Afri can Tunisian GFR Calc Performed By: #### L 501.9520, L100.0100, L503.6620, L500.2500 #### [facility] [address] [place], [address] GAP 1 Low 5-15 [facility] Comment on above: Performed By: #### L 501.9520, L100.0100, L503.6620, L500.2500 #### [facility] [address] [place], [address] GFR/1.73 sq M.predicted among non-blacks MDRD (S/P/Bld) [Vol rate/Area] 86 mL/min/{1.73_m2} Normal >60 [facility] Comment on above: Result Comment: Non- GFR Calc Performed By: #### L 501.9520, L100.0100, L503.6620, L500.2500 #### [facility] [address] [place], [address] Glucose [Mass/Vol] 102 mg/dL Normal 74-106 [facility] Comment on above: Result Comment: Fast ing Glucose result from 100 to 125 mg/dL suggests IMPAIRED HOMEOSTASIS per A.D.A. criteria. Performed By: #### L 501.9520, L100.0100, L503.6620, L500.2500 #### [facility] [address] [place], [address] Potassium [Moles/Vol] 4.5 mmol/L Normal 3.5-5.1 [facility] Comment on above: Performed By: #### L 501.9520, L100.0100, L503.6620, L500.2500 #### [facility] [address] [place], [address] Sodium [Moles/Vol] 137 mmol/L Normal 136-145 [facility] Comment on above: Performed By: #### L 501.9520, L100.0100, L503.6620, L500.2500 #### [facility] [address] [place], [address] Urea nitrogen [Mass/Vol] 17 mg/dL Normal 7-18 [facility] Comment on above: Performed By: #### L 501.9520, L100.0100, L503.6620, L500.2500 #### [facility] [address] [place], [address] CBC W/Diff, Automatedon 08-0 8-2023 Absolute Lymph 1.13 X10 3/uL Normal 0.83-4.51 [facility] Comment on above: Performed By: #### L [id number], L100.0100, L503.6620, L500.2500 #### [facility] [address] [place], [address] Absolute Neut 6.7 X10 3/uL Normal 2.0-7.7 [facility] Comment on above: Performed By: #### L 501.9520, L100.0100, L503.6620, L500.2500 #### [facility] [address] [place], [address] Basophils/100 WBC (Bld) 0.6 % Normal 0-1 [facility] Comment on above: Performed By: #### L 501.9520, L100.0100, L503.6620, L500.2500 #### [facility] [address] [place], [address] Eosinophils/100 WBC (Bld) 2.3 % Normal 0-5 [facility] Comment on above: Performed By: #### L 501.9520, L100.0100, L503.6620, L500.2500 #### [facility] [address] [place], [address] Erythrocyte distribution width (RBC) [Ratio] 14.6 % Normal 11.6-14.6 [facility] Comment on above: Performed By: #### L 501.9520, L100.0100, L503.6620, L500.2500 #### [facility] [address] [place], [address] Hematocrit (Bld) [Volume fraction] 38.2 % Low 40-54 [facility] Comment on above: Performed By: #### L 501.9520, L100.0100, L503.6620, L500.2500 #### [facility] [address] [place], [address] Hemoglobin (Bld) [Mass/Vol] 12.7 g/dL Low 13.0-16.5 [facility] Comment on above: Performed By: #### L 501.9520, L100.0100, L503.6620, L500.2500 #### [facility] [address] [place], [address] IG% 0.600 Normal 0.0-0.9 [facility] Comment on above: Result Comment: IG% - Immature Granulocytes (promyelocytes, myelocytes and metamyelocytes) > 1% indicates that a LEFT SHIFT is Present. Performed By: #### L 501.9520, L100.0100, L503.6620, L500.2500 #### [facility] [address] [place], [address] Lymphocytes/100 WBC (Bld) 12.8 % Low 19-41 [facility] Comment on above: Performed By: #### L 501.9520, L100.0100, L503.6620, L500.2500 #### [facility] [address] [place], [address] MCH (RBC) [Entitic mass] 32.4 pg High 27.0-32.0 [facility] Comment on above: Performed By: #### L 501.9520, L100.0100, L503.6620, L500.2500 #### [facility] [address] [place], [address] MCHC (RBC) [Mass/Vol] 33.2 g/dL Normal 32-36 [facility] Comment on above: Performed By: #### L 501.9520, L100.0100, L503.6620, L500.2500 #### [facility] [address] [place], [address] MCV (RBC) [Entitic vol] 97.4 fL High 80-94 [facility] Comment on above: Performed By: #### L 501.9520, L100.0100, L503.6620, L500.2500 #### [facility] [address] [place], [address] Monocytes/100 WBC (Bld) 7.3 % Normal 0-10 [facility] Comment on above: Performed By: #### L 501.9520, L100.0100, L503.6620, L500.2500 #### [facility] [address] [place], [address] Neutrophils/100 WBC (Bld) 76.4 % High 47-70 [facility] Comment on above: Performed By: #### L 501.9520, L100.0100, L503.6620, L500.2500 #### [facility] [address] [place], [address] Nucleated RBC (Bld) [#/Vol] 0 10*3/uL Normal 0-5 [facility] Comment on above: Performed By: #### L 501.9520, L100.0100, L503.6620, L500.2500 #### [facility] [address] [place], [address] Platelet mean volume (Bld) [Entitic vol] 10.4 fL Normal 6.2-12.0 [facility] Comment on above: Performed By: #### L 501.9520, L100.0100, L503.6620, L500.2500 #### [facility] [address] [place], [address] Platelets (Bld) [#/Vol] 185 10*3/uL Normal 150-450 [facility] Comment on above: Performed By: #### L 501.9520, L100.0100, L503.6620, L500.2500 #### [facility] [address] [place], [address] RBC (Bld) [#/Vol] 3.92 10*6/uL Low 4.6-6.2 [facility] Comment on above: Performed By: #### L 501.9520, L100.0100, L503.6620, L500.2500 #### [facility] [address] [place], [address] RDW SD 52.8 fl High 35.1-43.9 [facility] Comment on above: Performed By: #### L 501.9520, L100.0100, L503.6620, L500.2500 #### [facility] [address] [place], [address] WBC (Bld) [#/Vol] 8.8 10*3/uL Normal 4.4-11.0 [facility] Comment on above: Performed By: #### L 501.9520, L100.0100, L503.6620, L500.2500 #### [facility] [address] [place], [address] Cardiology Visit Reporton Cardiology Visit Report [facility] [address] [place], [place] [address] OFFICE VISIT Date of Service: 04/04/24 MR#: [id number] Acct: [id number] Name: ELYSE MALONEY Rep #: [id number] : 1935 Provider: JANA staley Age/Sex: 88/M Location: [facility] Status: Signed HPI [facility] History of Present Illness Details: This is a pleasant 88-year-old man who presents for a cardiovascular follow-up visit. He had been scheduled for carpal tunnel surgery and was noted to be in atrial fibrillation with a controlled ventricular response rate. He underwent DC cardioversion but did not maintain sinus rhythm. He has been compliant with his medications. He remember his coronary angiogram in April 2020 demonstrated no significant obstructive coronary disease and his echocardiogram demonstrated mildly reduced left ventricular ejection fraction of 50%. He states that he has been following with Neurology from [facility] for balance issues. He states that he has just finished PT. From a cardiac standpoint, the patient is doing well. He denies any palpitations, chest pain, pressure or heaviness. He does have SOB with exertion- this is newer. He denies Orthopnea, and PND. He does wear a CPAP nightly. He does not have bleeding issues; no blood in urine, stool or nosebleeds. He does acknowledge a decrease in energy level-his states that he sleeps more than usual. He denies myalgias, or claudication. He does not have edema, or sudden weight gain. He does acknowledge dizziness/lightheadedne ss with positional changes. He denies syncopal or near syncopal episodes, and headaches. He states that he does monitor his blood pressures at home 130-140/70-80. Intake Vital Signs 09/26/23 13:55 04/04/24 09:20 Height 5 ft 10 in 5 ft 10 in Weight: 190 lb BMI 27.2 BP 164/94 H Blood Pressure Location Lt brachial Position Sitting Respiration 18 Pulse 67 Pulse Source Monitor Pulse Oximetry (%) 96 Intake Visit Reasons: 1 Y FU Mail Inserter Required: No Is patient in pain?: No Allergies No Known Allergies Allergy (Verified 04/04/24 09:27) Medications ???Medication ???Instructions ???Recorded ???Confirmed ???Type finasteride 5 mg tablet 5 mg PO DAILY prostate 09/14/18 04/04/24 History multivitamin 1 ea PO DAILY vitamin 09/14/18 04/04/24 History apixaban 5 mg tablet (Eliquis) 5 mg PO BID #60 tabs 06/15/20 04/04/24 Rx tamsulosin 0.4 mg capsule (Flomax) 0.4 mg PO DAILY 06/05/21 04/04/24 History atorvastatin 40 mg tablet 40 mg PO DAILY 03/15/23 04/04/24 History lisinopril 40 mg tablet 40 mg PO DAILY 03/15/23 04/04/24 History vitamins A,C,Z-vtir-dhnmmu 4,296 1 cap PO BID 09/26/23 04/04/24 History mcg-226 mg-90 mg capsule (PreserVision AREDS) furosemide 20 mg tablet (Lasix) 20 mg PO Q OTHER DAY #45 tabs 10/02/23 04/04/24 Rx metoprolol succinate 100 mg 75 mg PO DAILY 04/04/24 04/04/24 History tablet,extended release 24 hr Have you fallen in the past year?: No PFSH Medical History Syncope Longstanding persistent atrial fibrillation Atherosclerotic heart disease of [place] coronary artery without angina pectoris Actinic keratoses New onset atrial fibrillation (04/29/20) Carpal tunnel syndrome Obstructive sleep apnea Osteoarthritis 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) Essential (primary) hypertension BPH associated with nocturia Hyperlipidemia TIA (transient ischemic attack) (09/14/18) Surgical History History of carpal tunnel release (10/2020) History of cardioversion (07/13/20) History of left heart catheterization (05/25/20) History of total knee arthroplasty History of repair of rotator cuff History of total left hip replacement (2011) Family History Father Heart disease Social History Smoking Status: Former smoker how long ago did patient quit smokin alcohol intake: current alcohol intake frequency: a few times a week substance use type: does not use caffeine: Yes Type: coffee Number of servings: 1 ROS Const Const: Positive for fatigue; Negative for weakness, fever(s), headache(s), chills, frequent falls, weight gain or weight loss Eyes Eyes: Negative for blind spots, loss of peripheral vision, transient loss of vision, blurry vision, change in vision, double vision, floaters or tunnel vision ENT ENT: Positive for dizziness; Negative for headache(s), Nosebleed/epistaxis, balance problems or neck pain Cardio Chest Pain: No Palpitations: No Edema: None Muscle aches with walking: None Resp Respiratory: Positive for SOB with activity; Negative for SOB at (more content not included)... Normal [facility] Thyroid Stim Hormone (TSH)on 04-04-2024 TSH 1.12 uIU/mL Normal 0.358-3.74 [facility] Comment on above: Performed By: #### L 501.9520, L100.0100, L503.6620, L500.2500 #### [facility] [address] [place], [address] CNTHERAPYon 04-03-2024 CNTHERAPY OT/PT/Speech Visit (PTWS) ELYSE MLAONEY ([id number]) 1935 M Date Time Provider Department 04/03/24 8:15 AM DOMINICK CAMPOS PTWS Date Time Provider Department [place] 04/03/2024 8:15 AM [id number], SEAN PTWS [place] [id number] Reason for Visit: PT Discharge [752] Primary Visit Diagnosis:Unsteadiness on feet [R26.81] Other Visit Diagnoses:Orthostatic dizziness [R42] Spinal stenosis of lumbar region without neurogenic claudication [M48.061] Cervical stenosis of spinal canal [M48.02] Allergies As of Date: 04/03/2024 Noted Allergy Reaction BACLOFEN 10/02/2018 14 - Other: See Comments Comments: vertigo Date Reviewed: 01/26/2024 Reviewed by: Marsha Arias PA-C - Fully Assessed Prescriptions as of 04/05/2024 - metoprolol succinate ER (TOPROL XL) 100 mg Take 1 tablet by mouth once daily. - OTC PRODUCT Take 1 tablet by mouth twice daily. PreserVision - atorvastatin (LIPITOR) 40 mg tablet Take 1 tablet by mouth daily at bedtime. For cholesterol. VA medication. - furosemide (LASIX) 20 mg tablet Take 1 tablet by mouth three times a week. Mon, Mon, Monday. VA medication. - lisinopril (ZESTRIL, PRINIVIL) 40 mg tablet Take 1 tablet by mouth once daily. VA medication. - CPAP Initiate CPAP @ 6 cm of water with humidification. Mask (per patient preference) optional chin strap (if indicated) , filters, tubing, humidifier and lifetime supplies. - tamsulosin (FLOMAX) 0.4 mg Take 1 capsule by mouth daily at bedtime. - apixaban (ELIQUIS) 5 mg tab(s) Take 5 mg by mouth twice daily. - finasteride (PROSCAR) 5 mg tablet Take 1 tablet by mouth once daily. VA medication. - COMPOUNDED PRESCRIPTION CPAP mask, tubing, and supplies. Dx: ICD9: 327.23, ICD10: G47.33 - COMPOUNDED PRESCRIPTION replacment cpap machine with heated humifier, replacemnt mask and supplies. set presssure at 6 cm and H2o. ISAAC dx. - MULTIVITAMIN ORAL TAB Take one(1) tablet daily. Relocation Services Specialist: Addendum Therapy (PT/OT/Speech/Resp) ID: [id number] 04/03/2024 8:49 AM Author: DOMINICK CAMPOS Signed by DOMINICK CAMPOS PT on 04/03/2024 at 8:49 AM * * * This document replaces document [id number] * * * Document text: Program_ID:[id number] Access Code: [email or web address] URL: [email or web address]/ Date: 04-03-2024 Prepared By: Dominick Campos Program Notes Exercises - Sidelying Hip Abduction - 1 x daily - 7 x weekly - 3 sets - 10 reps - Sit to Stand with Arms Crossed - 1 x daily - 7 x weekly - 3 sets - 10 reps - Heel Raises with Counter Support - 1 x daily - 7 x weekly - 3 sets - 10 reps - Standing Hip Abduction with Counter Support - 1 x daily - 7 x weekly - 3 sets - 10 reps - Seated Heel Toe Raises - 1 x daily - 7 x weekly - 3 sets - 10 reps - Supine Active Straight Leg Raise - 1 x daily - 7 x weekly - 3 sets - 10 reps - Heel Toe Raises with Counter Support - 1 x daily - 7 x weekly - 3 sets - 10 reps Normal [facility] THERAPY NTon 04-03-2024 THERAPY NT HNO ID: [id number] Author: DOMINICK CAMPOS PT Service: ? Author Type: Physical Therapist Type: Therapy (PT/OT/Speech/Resp) Filed: 04/03/2024 08:49 Note Text: Program_ID:[id number] Access Code: [email or web address] URL: [email or web address] [email or web address] .[employer]/ Date: 04-03-2024 Prepared By: Dominick Campos Program Notes Exercises - Sidelying Hip Abduction - 1 x daily - 7 x weekly - 3 sets - 10 reps - Sit to Stand with Arms Crossed - 1 x daily - 7 x weekly - 3 sets - 10 reps - Heel Raises with Counter Support - 1 x daily - 7 x weekly - 3 sets - 10 reps - Standing Hip Abduction with Counter Support - 1 x daily - 7 x weekly - 3 sets - 10 reps - Seated Heel Toe Raises - 1 x daily - 7 x weekly - 3 sets - 10 reps - Supine Active Straight Leg Raise - 1 x daily - 7 x weekly - 3 sets - 10 reps - Heel Toe Raises with Counter Support - 1 x daily - 7 x weekly - 3 sets - 10 reps Normal [facility] CNTHERAPYon 03-29-2024 CNTHERAPY OT/PT/Speech Visit (PTWS) ELYSE MALONEY ([id number]) 1935 M Date Time Provider Department 03/29/24 8:00 AM SONALI HOFFMAN Date Time Provider Department Center 03/29/2024 8:00 AM [id number] HOFFMAN Reason for Visit: Physical Therapy [503] Primary Visit Diagnosis:Unsteadiness on feet [R26.81] Other Visit Diagnoses:Orthostatic dizziness [R42] Spinal stenosis of lumbar region without neurogenic claudication [M48.061] Cervical stenosis of spinal canal [M48.02] Allergies As of Date: 03/29/2024 Noted Allergy Reaction BACLOFEN 10/02/2018 14 - Other: See Comments Comments: vertigo Date Reviewed: 01/26/2024 Reviewed by: Marsha Arias PA-C - Fully Assessed Prescriptions as of 03/29/2024 - metoprolol succinate ER (TOPROL XL) 100 mg Take 1 tablet by mouth once daily. - OTC PRODUCT Take 1 tablet by mouth twice daily. PreserVision - atorvastatin (LIPITOR) 40 mg tablet Take 1 tablet by mouth daily at bedtime. For cholesterol. VA medication. - furosemide (LASIX) 20 mg tablet Take 1 tablet by mouth three times a week. Mon, Mon, Monday. VA medication. - lisinopril (ZESTRIL, PRINIVIL) 40 mg tablet Take 1 tablet by mouth once daily. VA medication. - CPAP Initiate CPAP @ 6 cm of water with humidification. Mask (per patient preference) optional chin strap (if indicated) , filters, tubing, humidifier and lifetime supplies. - tamsulosin (FLOMAX) 0.4 mg Take 1 capsule by mouth daily at bedtime. - apixaban (ELIQUIS) 5 mg tab(s) Take 5 mg by mouth twice daily. - finasteride (PROSCAR) 5 mg tablet Take 1 tablet by mouth once daily. VA medication. - COMPOUNDED PRESCRIPTION CPAP mask, tubing, and supplies. Dx: ICD9: 327.23, ICD10: G47.33 - COMPOUNDED PRESCRIPTION replacment cpap machine with heated humifier, replacemnt mask and supplies. set presssure at 6 cm and H2o. ISAAC dx. - MULTIVITAMIN ORAL TAB Take one(1) tablet daily. Normal [facility] CNTHERAPYon 03-20-2024 CNTHERAPY OT/PT/Speech Visit (PTWS) ELYSE MALONEY ([id number]) 1935 M Date Time Provider Department 03/20/24 8:15 AM DOMINICK CAMPOS PTWS Date Time Provider Department Center 03/20/2024 8:15 AM [id number], SEAN PTWS [place] Christy Reason for Visit: Physical Therapy [503] Primary Visit Diagnosis:Unsteadiness on feet [R26.81] Other Visit Diagnoses:Orthostatic dizziness [R42] Spinal stenosis of lumbar region without neurogenic claudication [M48.061] Cervical stenosis of spinal canal [M48.02] Allergies As of Date: 03/20/2024 Noted Allergy Reaction BACLOFEN 10/02/2018 14 - Other: See Comments Comments: vertigo Date Reviewed: 01/26/2024 Reviewed by: Marsha Arias PA-C - Fully Assessed Prescriptions as of 03/20/2024 - metoprolol succinate ER (TOPROL XL) 100 mg Take 1 tablet by mouth once daily. - OTC PRODUCT Take 1 tablet by mouth twice daily. PreserVision - atorvastatin (LIPITOR) 40 mg tablet Take 1 tablet by mouth daily at bedtime. For cholesterol. VA medication. - furosemide (LASIX) 20 mg tablet Take 1 tablet by mouth three times a week. Mon, Mon, Monday. VA medication. - lisinopril (ZESTRIL, PRINIVIL) 40 mg tablet Take 1 tablet by mouth once daily. VA medication. - CPAP Initiate CPAP @ 6 cm of water with humidification. Mask (per patient preference) optional chin strap (if indicated) , filters, tubing, humidifier and lifetime supplies. - tamsulosin (FLOMAX) 0.4 mg Take 1 capsule by mouth daily at bedtime. - apixaban (ELIQUIS) 5 mg tab(s) Take 5 mg by mouth twice daily. - finasteride (PROSCAR) 5 mg tablet Take 1 tablet by mouth once daily. VA medication. - COMPOUNDED PRESCRIPTION CPAP mask, tubing, and supplies. Dx: ICD9: 327.23, ICD10: G47.33 - COMPOUNDED PRESCRIPTION replacment cpap machine with heated humifier, replacemnt mask and supplies. set presssure at 6 cm and H2o. ISAAC dx. - MULTIVITAMIN ORAL TAB Take one(1) tablet daily. Normal [facility] CNTHERAPYon 03-13-2024 CNTHERAPY OT/PT/Speech Visit (PTWS) ELYSE MALONEY ([id number]) 1935 M Date Time Provider Department 03/13/24 8:15 AM DOMINICK CAMPOS Date Time Provider Department Center 03/13/2024 8:15 AM [id number], SEAN PTRETA Christy Reason for Visit: Physical Therapy [503] Primary Visit Diagnosis:Unsteadiness on feet [R26.81] Other Visit Diagnoses:Orthostatic dizziness [R42] Spinal stenosis of lumbar region without neurogenic claudication [M48.061] Cervical stenosis of spinal canal [M48.02] Allergies As of Date: 03/13/2024 Noted Allergy Reaction BACLOFEN 10/02/2018 14 - Other: See Comments Comments: vertigo Date Reviewed: 01/26/2024 Reviewed by: Marsha Arias PA-C - Fully Assessed Prescriptions as of 03/13/2024 - metoprolol succinate ER (TOPROL XL) 100 mg Take 1 tablet by mouth once daily. - OTC PRODUCT Take 1 tablet by mouth twice daily. PreserVision - atorvastatin (LIPITOR) 40 mg tablet Take 1 tablet by mouth daily at bedtime. For cholesterol. VA medication. - furosemide (LASIX) 20 mg tablet Take 1 tablet by mouth three times a week. Mon, Mon, Monday. VA medication. - lisinopril (ZESTRIL, PRINIVIL) 40 mg tablet Take 1 tablet by mouth once daily. VA medication. - CPAP Initiate CPAP @ 6 cm of water with humidification. Mask (per patient preference) optional chin strap (if indicated) , filters, tubing, humidifier and lifetime supplies. - tamsulosin (FLOMAX) 0.4 mg Take 1 capsule by mouth daily at bedtime. - apixaban (ELIQUIS) 5 mg tab(s) Take 5 mg by mouth twice daily. - finasteride (PROSCAR) 5 mg tablet Take 1 tablet by mouth once daily. VA medication. - COMPOUNDED PRESCRIPTION CPAP mask, tubing, and supplies. Dx: ICD9: 327.23, ICD10: G47.33 - COMPOUNDED PRESCRIPTION replacment cpap machine with heated humifier, replacemnt mask and supplies. set presssure at 6 cm and H2o. ISAAC dx. - MULTIVITAMIN ORAL TAB Take one(1) tablet daily. Normal [facility] CNTHERAPYon 03-06-2024 CNTHERAPY OT/PT/Speech Visit (PTWS) ELYSE MALONEY ([id number]) 1935 M Date Time Provider Department 03/06/24 9:45 AM DOMINICK CAMPOS Date Time Provider Department Center 03/06/2024 9:45 AM [id number] CAMPOS [place] Reason for Visit: Physical Therapy [503] Primary Visit Diagnosis:Unsteadiness on feet [R26.81] Other Visit Diagnoses:Orthostatic dizziness [R42] Spinal stenosis of lumbar region without neurogenic claudication [M48.061] Cervical stenosis of spinal canal [M48.02] Allergies As of Date: 03/06/2024 Noted Allergy Reaction BACLOFEN 10/02/2018 14 - Other: See Comments Comments: vertigo Date Reviewed: 01/26/2024 Reviewed by: Marsha Arias PA-C - Fully Assessed Prescriptions as of 03/06/2024 - metoprolol succinate ER (TOPROL XL) 100 mg Take 1 tablet by mouth once daily. - OTC PRODUCT Take 1 tablet by mouth twice daily. PreserVision - atorvastatin (LIPITOR) 40 mg tablet Take 1 tablet by mouth daily at bedtime. For cholesterol. VA medication. - furosemide (LASIX) 20 mg tablet Take 1 tablet by mouth three times a week. Mon, Mon, Monday. VA medication. - lisinopril (ZESTRIL, PRINIVIL) 40 mg tablet Take 1 tablet by mouth once daily. VA medication. - CPAP Initiate CPAP @ 6 cm of water with humidification. Mask (per patient preference) optional chin strap (if indicated) , filters, tubing, humidifier and lifetime supplies. - tamsulosin (FLOMAX) 0.4 mg Take 1 capsule by mouth daily at bedtime. - apixaban (ELIQUIS) 5 mg tab(s) Take 5 mg by mouth twice daily. - finasteride (PROSCAR) 5 mg tablet Take 1 tablet by mouth once daily. VA medication. - COMPOUNDED PRESCRIPTION CPAP mask, tubing, and supplies. Dx: ICD9: 327.23, ICD10: G47.33 - COMPOUNDED PRESCRIPTION replacment cpap machine with heated humifier, replacemnt mask and supplies. set presssure at 6 cm and H2o. ISAAC dx. - MULTIVITAMIN ORAL TAB Take one(1) tablet daily. Normal [facility] [id number] 02-07-2024 [id number] HNO ID: [id number] Author: DOMINICK CAMPOS PT Service: ? Author Type: Physical Therapist Type: [id number] Filed: 02/07/2024 16:58 Note Text: [facility] Physical Therapy Plan of Care Certification Patient Name: Elyse Maloney : 1935 [facility] #: [id number] Date: 02/07/2024 To: Marsha Arias PA-C From Therapist: Dominick Campos PT RE: Patient Certification/ Recertification Your review, approval and electronic signature are required in order to comply with Payor: MEDICARE / Plan: MEDICARE A AND B / Product Type: Medicare / regulations. The identified Physical Therapy PLAN OF CARE for the patient is as follows: M48.061 Spinal stenosis of lumbar region, unspecified whether neurogenic claudication present (primary encounter diagnosis) M48.02 Cervical stenosis of spinal canal R26.81 Unsteadiness on feet R42 Orthostatic dizziness PLAN OF CARE: Assessment: Elyse Maloney presents with chief complaint of unsteady gait that interferes with standing, walking, heavy exertion, physical activities, recreational activities . He presents with impairments in ADL's, balance, gait, overall function, strength, and symptom management. PROMIS? (Patient-Reported Outcomes Measurement Information System) scores were reviewed and identified as a rehabilitation concern. Prognosis for therapy is Good due to: current objective clinical presentation, good overall health status, positive past response to therapy, good support system/ coping skills . He will benefit from skilled therapy services to meet the goals established for this plan of care as noted below. Assessment Fall Risk : Active low risk Goals for Episode of Care: created on 02/07/24 through 04/08/24 Patient will report no falls. Improve score on Timed Up and Go Test to 10 seconds to reflect decreased fall risk. Improve score on 30 Second Chair Stand to 12 repetitions to reflect decreased fall risk. Improve performance on 4 Stage Balance Test to 10 seconds in SLS and tandem to reflect decreased fall risk. [place] in home exercise program including cardiovascular exercise. Planned Interventions, Frequency, and Duration: Current Frequency: 1x/week Duration: 8 weeks Total Number of Visits Planned: 8 Planned Treatment Interventions: Therapeutic exercise (59204), Neuromuscular re-education (03836), Manual therapy (85939), Therapeutic activities (38454), Self-snf management (11725), Gait Training (43124), Patient/Family/Caregive r Education, Body Mechanics Training PLAN FOR NEXT VISIT: balance training, progress HEP per tolerance. Focus on hip strength and L4-S1 myotomes Patient demonstrates good understanding of plan of care and treatment. The above goals and plan of care were discussed and agreed upon by patient/family. For further details regarding this patient refer to the Physical Therapy electronically documented visit dated 02/07/2024. Provider Attestation I have reviewed the treatment plan for Elyse Maloney, [facility]# [id number] for the period of 02/07/24 -- 04/08/24, established on 02/07/2024. Signature certifies the need for therapy services. Normal [facility] CNTHERAPYon 02-07-2024 CNTHERAPY OT/PT/Speech Visit (PTWS) ELYSE MALONEY ([id number]) 1935 M Date Time Provider Department 02/07/24 9:00 AM DOMINICK CAMPOS PTRETA Date Time Provider Department Center 02/07/2024 9:00 AM [id number] CAMPOS Reason for Visit: PT Eval [747] Primary Visit Diagnosis:Spinal stenosis of lumbar region, unspecified whether neurogenic claudication present [M48.061] Other Visit Diagnoses:Cervical stenosis of spinal canal [M48.02] Unsteadiness on feet [R26.81] Orthostatic dizziness [R42] Allergies As of Date: 02/07/2024 Noted Allergy Reaction BACLOFEN 10/02/2018 14 - Other: See Comments Comments: vertigo Date Reviewed: 01/26/2024 Reviewed by: Marsha Arias PA-C - Fully Assessed Prescriptions as of 02/07/2024 - metoprolol succinate ER (TOPROL XL) 100 mg Take 1 tablet by mouth once daily. - OTC PRODUCT Take 1 tablet by mouth twice daily. PreserVision - atorvastatin (LIPITOR) 40 mg tablet Take 1 tablet by mouth daily at bedtime. For cholesterol. [facility] medication. - furosemide (LASIX) 20 mg tablet Take 1 tablet by mouth three times a week. Mon, Mon, Monday. [facility] medication. - lisinopril (ZESTRIL, PRINIVIL) 40 mg tablet Take 1 tablet by mouth once daily. [facility] medication. - CPAP Initiate CPAP @ 6 cm of water with humidification. Mask (per patient preference) optional chin strap (if indicated) , filters, tubing, humidifier and lifetime supplies. - tamsulosin (FLOMAX) 0.4 mg Take 1 capsule by mouth daily at bedtime. - apixaban (ELIQUIS) 5 mg tab(s) Take 5 mg by mouth twice daily. - finasteride (PROSCAR) 5 mg tablet Take 1 tablet by mouth once daily. [facility] medication. - COMPOUNDED PRESCRIPTION CPAP mask, tubing, and supplies. Dx: ICD9: 327.23, ICD10: G47.33 - COMPOUNDED PRESCRIPTION replacment cpap machine with heated humifier, replacemnt mask and supplies. set presssure at 6 cm and H2o. ISAAC dx. - MULTIVITAMIN ORAL TAB Take one(1) tablet daily. Relocation Services Specialist: Therapy (PT/OT/Speech/Resp) ID: [id number] 02/07/2024 9:37 AM Author: DOMINICK CAMPOS Signed by DOMINICK CAMPOS PT on 02/07/2024 at 9:37 AM Document text: Program_ID:[id number] Access Code: [email or web address] URL: https://Command Information/ Date: 02-07-2024 Prepared By: Dominick Campos Program Notes Exercises - Sidelying Hip Abduction - 1 x daily - 7 x weekly - 3 sets - 10 reps - Sit to Stand with Arms Crossed - 1 x daily - 7 x weekly - 3 sets - 10 reps - Heel Raises with Counter Support - 1 x daily - 7 x weekly - 3 sets - 10 reps - Standing Hip Abduction with Counter Support - 1 x daily - 7 x weekly - 3 sets - 10 reps - Seated Heel Toe Raises - 1 x daily - 7 x weekly - 3 sets - 10 reps Normal [facility] THERAPY NTon 02-07-2024 THERAPY NT HNO ID: [id number] Author: DOMINICK CAMPOS PT Service: ? Author Type: Physical Therapist Type: Therapy (PT/OT/Speech/Resp) Filed: 02/07/2024 09:37 Note Text: Program_ID:[id number] Access Code: [email or web address] URL: https://Command Information/ Date: 02-07-2024 Prepared By: Dominick Campos Program Notes Exercises - Sidelying Hip Abduction - 1 x daily - 7 x weekly - 3 sets - 10 reps - Sit to Stand with Arms Crossed - 1 x daily - 7 x weekly - 3 sets - 10 reps - Heel Raises with Counter Support - 1 x daily - 7 x weekly - 3 sets - 10 reps - Standing Hip Abduction with Counter Support - 1 x daily - 7 x weekly - 3 sets - 10 reps - Seated Heel Toe Raises - 1 x daily - 7 x weekly - 3 sets - 10 reps Normal [facility] CNOVon 01-26-2024 CNOV Office Visit ([facility] ) ELYSE MALONEY ([id number]) 1935 M Date Time Provider Department 01/26/24 1:00 PM MARSHA ARIAS [facility] During your visit today, we recorded the following information about you: Pulse Respiration Blood pressure Weight 87/minute 16/minute 159/91 86.2 kg Marsha Arias PA-C 01/26/2024 1:59 PM Signed ESTABLISHED PATIENT VISIT Last visit: 12/05/23 Assessment AND Plan: Elyse Maloney is a 88 year old right-handed male with a history of A-fib on Eliquis, hypertension, hyperlipidemia, CAD, ISAAC. His examination demonstrates sensory changes in a stocking glove fashion with absent Achilles reflex and diminished patellar reflex. Weakness on the left lower extremity and minimally on the left upper extremity. Some left-sided drooping of the eyelid, but otherwise facial muscles are intact. Significantly hard of hearing. Patient with 2 to 3 years of constant unsteadiness with standing. Worse when he is in the shower washing his hair, but now worse at a certain time of day or after eating. Orthostatics were negative. Patient with signs and symptoms of neuropathy in his lower extremities and in his fingertips. No history of diabetes or other risk factors for neuropathy. Patient also with some weakness in the left upper and lower extremity, minimally left facial weakness. CT of the brain was negative, but will obtain MRI of the brain to rule out any stroke contributing patient's symptoms. However, primary concern is neuropathy, will obtain EMG of the upper and lower extremity to evaluate for any signs of neuropathy or other neuromuscular etiology. Will obtain basic blood work as well to look for common causes of neuropathy. Did discuss alpha lipoic acid to prevent further worsening of symptoms as patient reporting some numbness and tingling in his fingertips over the last few months. Encouraged adequate fluid hydration as well throughout the day however patient is not orthostatic today. No signs or symptoms of cord compression, negative [place] bilaterally, no hyperreflexia noted. Discussed red flag signs symptoms that would warrant going to the emergency department. Patient and family agreeable to treatment plan of care at this time, questions were answered. Patient to follow-up after completion of studies. Elyse was seen today for new patient. Diagnoses and all orders for this visit: Neuropathy - C-REACTIVE PROTEIN (CRP); Future - SED RATE WESTERGREN; Future - METHYLMALONIC ACID; Future - PROT ELECT SERUM WITH VINCENZO AND INTERP; Future - VITAMIN B12 BLOOD; Future Orthostatic dizziness - CONSULT TO NEUROLOGY - MRI BRAIN WO IVCON; Future - PROT ELECT SERUM WITH VINCENZO AND INTERP; Future Abnormal gait - CONSULT TO NEUROLOGY - EMG(NEURO/NI); Future - MRI BRAIN WO IVCON; Future Other orders - iv contrast (will be provided with radiology test); MRI Brain Inject, intravenously, once for 1 dose.No IV access, insert saline lock prior to beginning of sedation, infusion, injection of imaging exam.Discontinue saline lock post exam. If Pt. has a central line or IVAD, may access for administration according to line specific nursing protocol.Once exam is complete flush line and de-access according to line specific nursing protocol in the MR contrast administration guidelines link He should return to see me in 3 months. CHIEF COMPLAINT: follow up HISTORY OF PRESENT ILLNESS: Elyse Maloney is a 88 year old male, There were no vitals taken for this visit. with a PMH significant for A-fib on Eliquis, hypertension, hyperlipidemia, CAD, ISAAC . Patient with gait abnormality and unsteadiness for 2-3 years, MRI cervical spine and lumbar spine show degeneration and encouraged to see spine. EMG unable to determine neuropathy due to lumbar radiculopathy. B12 was also slightly low at 349, encouraged to supplement. 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 Patient with no change in dizziness since last appointment. Denies presyncope, syncope, room spinning dizziness. States that as soon as he stands up or for long period of time after standing he will start to sway and feels very unsteady. No falls since last appointment. Notes he drinks plenty of water at the day and is fairly active. notes that she is concerned because if he walks for a limited distance he needs to sit down due to the unsteadiness. Has been supplementing B12 as instructed but does not feel there is any benefit with this. No new concerns today. REVIEW OF SYSTEMS GENERAL:No weight loss, malaise or fevers. HEENT:Negative for frequent or significant headaches, No changes in hearing or vision, no nose bleeds or other nasal problems NECK:Negative for lumps, goiter, pain and significant neck swelling RESPIRATORY: Negative for cough, wheezing or shortness of breath. CARDIOVASCULAR: Neg (more content not included)... [facility] ELYSE MALONEY ([id number]) 1935 M Date Time Provider Department 01/25/24 MARSHA ARIAS [facility] During your visit today, we recorded the following information about you: Marsha Arias PA-C 01/25/2024 9:41 AM Signed MRI of the cervical spine and lumbar spine show significant degeneration that may be causing gait issues. Will need to see a spinal specialist, referral placed. LILIAN Madera Lorinda, LPN 01/25/2024 3:58 PM Signed Phone all placed to patient advised of provider results, recommendations. Patient became upset requested an office visit with Lon Arias and Dr. Vickers at the same time to discuss testing and results, new referrals. Advised that we are unable to schedule with two providers at the same time. Office visit scheduled with Lon Arias on 01/26/2024 in [place] patient reported he didn't mind travel, agreeable to further discuss MRI results with provider, declined to schedule with biometrics specialist at this time. Patient verbalized understanding, agreed with plan of care. Allergies As of Date: 01/25/2024 Noted Allergy Reaction BACLOFEN 10/02/2018 14 - Other: See Comments Comments: vertigo Date Reviewed: 01/23/2024 Reviewed by: Rachana Vidal MA - Fully Assessed Reason for Visit: Results [95] Primary Visit Diagnosis:Spinal stenosis of lumbar region, unspecified whether neurogenic claudication present [M48.061] Other Visit Diagnosis:Cervical stenosis of spinal canal [M48.02] Order(s):CONSULT TO NEUROLOGY [5191] Order #: [id number]: 1 FUTURE Prescriptions as of 01/25/2024 - metoprolol succinate ER (TOPROL XL) 100 mg Take 1 tablet by mouth once daily. - OTC PRODUCT Take 1 tablet by mouth twice daily. PreserVision - atorvastatin (LIPITOR) 40 mg tablet Take 1 tablet by mouth daily at bedtime. For cholesterol. [facility] medication. - furosemide (LASIX) 20 mg tablet Take 1 tablet by mouth three times a week. Mon, Mon, Monday. VA medication. - lisinopril (ZESTRIL, PRINIVIL) 40 mg tablet Take 1 tablet by mouth once daily. [facility] medication. - CPAP Initiate CPAP @ 6 cm of water with humidification. Mask (per patient preference) optional chin strap (if indicated) , filters, tubing, humidifier and lifetime supplies. - tamsulosin (FLOMAX) 0.4 mg Take 1 capsule by mouth daily at bedtime. - apixaban (ELIQUIS) 5 mg tab(s) Take 5 mg by mouth twice daily. - finasteride (PROSCAR) 5 mg tablet Take 1 tablet by mouth once daily. VA medication. - COMPOUNDED PRESCRIPTION CPAP mask, tubing, and supplies. Dx: ICD9: 327.23, ICD10: G47.33 - COMPOUNDED PRESCRIPTION replacment cpap machine with heated humifier, replacemnt mask and supplies. set presssure at 6 cm and H2o. ISAAC dx. - MULTIVITAMIN ORAL TAB Take one(1) tablet daily. 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] 08/15/2010 07/12/2013 Solar Lentigines [L81.4] 08/15/2010 06/07/2017 Melanocytic Nevus moles of trunk: chest and sangeeta*08/15/2010 07/12/2013 Melanocytic Nevus moles of arms: forearms [D22.*08/15/2010 07/12/2013 Obstructive sleep apnea [G47.33] 08/16/2010 Actinic skin damage [L57.8] 02/19/2013 06/07/2017 Other seborrheic keratosis [L82.1] 02/19/2013 Postinflammatory skin changes [R23.8] 05/16/2013 06/07/2017 Vertebral artery stenosis, left [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] 10/08/2018 Atrial fibrillation (HCC) [I48.91] 04/29/2020 Coronary atherosclerosis [I25.10] 09/21/2020 Hypomagnesemia [E83.42] 02/18/2022 05/24/2023 Impaired fasting glucose [R73.01] 02/18/2022 Vertigo [R42] 05/31/2022 11/22/2023 Orthostatic dizziness [R42] 11/22/2023 Abnormal gait [R26.9] 11/22/2023 Encounter Status:Closed by MARSHA ARIAS on 01/25/24 Normal [facility] MR Cervical spine WO contras ton 01-24-2024 * * *Final Report* * * DATE OF EXAM: Jan 24 2024 2:17PM [facility] [id number] - MRI CERVICAL SPINE WO IVCON / PROCEDURE REASON: multiple diagnoses * * * * Physician Interpretation * * * * EXAMINATION: MRI LUMBAR SPINE WO IVCON, MRI CERVICAL SPINE WO IVCON CLINICAL HISTORY: Spinal stenosis of lumbar region, unspecified whether neurogenic claudication present - Abnormal gait TECHNIQUE: Routine cervical and lumbosacral spine MR protocol without gadolinium. MQ: [id number]_1 COMPARISON: None. RESULT: CERVICAL: Motion degraded images. Counting reference: Craniocervical junction. Anatomic Variants: None. Localizer images: No significant findings. Alignment: Alignment is anatomic. Craniocervical junction: Craniocervical junction is normal. Cord: Levels of cord approximation due to spondylotic changes, further detailed below. No intramedullary signal abnormality. Bone marrow signal/fracture: No evidence of pathologic marrow infiltration. No evidence of prior fracture. Soft tissues: The paraspinal soft tissues are within normal limits. C2-C3: Disc/osteophyte complex, dorsal ligamentous hypertrophy, uncovertebral and facet hypertrophy; mild canal stenosis with cord approximation/abutment, moderate bilateral foraminal stenosis. C3-C4: Diffuse disc bulging, dorsal ligamentous hypertrophy, uncovertebral and facet hypertrophy; mild/moderate canal stenosis with cord approximation/abutment, moderate bilateral foraminal stenosis. C4-C5: Shallow disc/osteophyte complex and dorsal ligamentous hypertrophy without significant cord impact. Mild-moderate right and moderate left foraminal stenosis. C5-C6: Shallow disc bulging approximating the ventral cord. At least mild right and moderate left foraminal stenosis. C6-C7: Diffuse disc bulging approximating the ventral cord. At least moderate bilateral foraminal stenosis. C7-T1: At least moderate bilateral foraminal stenosis. Patent canal. No high-grade canal or foraminal compromise in the imaged thoracic spine to the level of T3-4. LUMBAR: Counting reference: Craniocervical and lumbosacral junctions For the purposes of this report, L4-5 is considered the level of the iliac crest and assume there are 5 lumbar-type vertebrae. Anatomic variant: None. Localizer images: Mild lumbar levocurvature centered at L2-3. Grade 1 degenerative spondylolisthesis at L3-4. Multilevel mild to moderate intervertebral disc space narrowing. Alignment: Alignment is anatomic. Bone marrow signal/fracture: No evidence of pathologic marrow infiltration. No evidence of prior fracture. Conus: The conus is within normal limits of signal intensity and morphology. Soft tissues: Paraspinal soft tissues are within normal limits. Lower thoracic spine: At T10-11, moderate bilateral foraminal stenosis. At T11-T12, mild right and at least moderate left foraminal stenosis. At T12-L1, diffuse disc bulging and facet and ligamentous hypertrophy approximating the conus, and moderate bilateral foraminal stenosis. Diffuse relative lumbar canal and foraminal narrowing on a developmental basis due to short pedicles. L1-L2: Diffuse disc bulging with superimposed broad-based disc protrusion, moderate facet and ligamentous hypertrophy, short pedicles; moderate-severe canal stenosis, severe right and moderate left foraminal stenosis. L2-L3: Shallow disc bulging, facet and ligamentous hypertrophy, short pedicles; mild canal stenosis with narrowing of each subarticular zone, at least moderate right and mild left foraminal stenosis. L3-L4: Spondylolisthesis, diffuse disc bulging, facet and ligamentous hypertrophy, short pedicles; moderate canal stenosis, moderate bilateral foraminal stenosis. L4-L5: Diffuse disc bulging with superimposed broad-based shallow disc protrusion, facet arthropathy, ligamentous hypertrophy, short pedicles; patent canal with narrowing of each subarticular zone, at least moderate right and moderate-severe left foraminal stenosis. L5-S1: Diffuse disc bulging, facet hypertrophy, short pedicles; patent canal and foramina. Sacrum and iliac wings: The visualized sacrum and iliac wings are within normal limits. The presacral soft tissues are normal in appearance. DIVISION OF RADIOLOGY Provider, [facility] - 01/24/2024 * * *Final Report* * * DATE OF EXAM: Jan 24 2024 2:17PM [facility] [id number] - MRI CERVICAL SPINE WO IVCON / PROCEDURE REASON: multiple diagnoses * * * * Physician Interpretation * * * * EXAMINATION: MRI LUMBAR SPINE WO IVCON, MRI CERVICAL SPINE WO IVCON CLINICAL HISTORY: Spinal stenosis of lumbar region, unspecified whether neurogenic claudication present - Abnormal gait TECHNIQUE: Routine cervical and lumbosacral spine MR protocol without gadolinium. MQ: MRCLWO_1 COMPARISON: None. RESULT: CERVICAL: Motion degraded images. Counting reference: Craniocervical junction. Anatomic Variants: None. Localizer images: No significant findings. Alignment: Alignment is anatomic. Craniocervical junction: Craniocervical junction is normal. Cord: Levels of cord approximation due to spondylotic changes, further detailed below. No intramedullary signal abnormality. Bone marrow signal/fracture: No evidence of pathologic marrow infiltration. No evidence of prior fracture. Soft tissues: The paraspinal soft tissues are within normal limits. C2-C3: Disc/osteophyte complex, dorsal ligamentous hypertrophy, uncovertebral and facet hypertrophy; mild canal stenosis with cord approximation/abutment, moderate bilateral foraminal stenosis. C3-C4: Diffuse disc bulging, dorsal ligamentous hypertrophy, uncovertebral and facet hypertrophy; mild/moderate canal stenosis with cord approximation/abutment, moderate bilateral foraminal stenosis. C4-C5: Shallow disc/osteophyte complex and dorsal ligamentous hypertrophy without significant cord impact. Mild-moderate right and moderate left foraminal stenosis. C5-C6: Shallow disc bulging approximating the ventral cord. At least mild right and moderate left foraminal stenosis. C6-C7: Diffuse disc bulging approximating the ventral cord. At least moderate bilateral foraminal stenosis. C7-T1: At least moderate bilateral foraminal stenosis. Patent canal. No high-grade canal or foraminal compromise in the imaged thoracic spine to the level of T3-4. LUMBAR: Counting reference: Craniocervical and lumbosacral junctions For the purposes of this report, L4-5 is considered the level of the iliac crest and assume there are 5 lumbar-type vertebrae. Anatomic variant: None. Localizer images: Mild lumbar levocurvature centered at L2-3. Grade 1 degenerative spondylolisthesis at L3-4. Multilevel mild to moderate intervertebral disc space narrowing. Alignment: Alignment is anatomic. Bone marrow signal/fracture: No evidence of pathologic marrow infiltration. No evidence of prior fracture. Conus: The conus is within normal limits of signal intensity and morphology. Soft tissues: Paraspinal soft tissues are within normal limits. Lower thoracic spine: At T10-11, moderate bilateral foraminal stenosis. At T11-T12, mild right and at least moderate left foraminal stenosis. At T12-L1, diffuse disc bulging and facet and ligamentous hypertrophy approximating the conus, and moderate bilateral foraminal stenosis. Diffuse relative lumbar canal and foraminal narrowing on a developmental basis due to short pedicles. L1-L2: Diffuse disc bulging with superimposed broad-based disc protrusion, moderate facet and ligamentous hypertrophy, short pedicles; moderate-severe canal stenosis, severe right and moderate left foraminal stenosis. L2-L3: Shallow disc bulging, facet and ligamentous hypertrophy, short pedicles; mild canal stenosis with narrowing of each subarticular zone, at least moderate right and mild left foraminal stenosis. L3-L4: Spondylolisthesis, diffuse disc bulging, facet and ligamentous hypertrophy, short pedicles; moderate canal stenosis, moderate bilateral foraminal stenosis. L4-L5: Diffuse disc bulging with superimposed broad-based shallow disc protrusion, facet arthropathy, ligamentous hypertrophy, short pedicles; patent canal with narrowing of each subarticular zone, at least moderate right and moderate-severe left foraminal stenosis. L5-S1: Diffuse disc bulging, facet hypertrophy, short pedicles; patent canal and foramina. Sacrum and iliac wings: The visualized sacrum and iliac wings are within normal limits. The presacral soft tissues are normal in appearance. IMPRESSION IMPRESSION: Moderate cervical spondylosis, as detailed. Multilevel cord approximation/abutment without intramedullary signal abnormality. Lumbar spondylosis superimposed on developmentally short pedicles, as detailed. Cervical Anatomic Variant: None. Assume 7 cervical vertebrae with counting from the craniocervical junction. Anatomic Lumbar Variant: None. L4-5 is considered the level of the iliac crest and assume there are 5 lumbar-type vertebrae. Datawarehouse Developer: CARA Transcribe Date/Time: Jan 24 2024 2:21P (more content not included)... [facility] MR Lumbar spine WO contrasto n 01-24-2024 * * *Final Report* * * DATE OF EXAM: Jan 24 2024 2:17PM [facility] [id number] - MRI LUMBAR SPINE WO IVCON / PROCEDURE REASON: multiple diagnoses * * * * Physician Interpretation * * * * EXAMINATION: MRI LUMBAR SPINE WO IVCON, MRI CERVICAL SPINE WO IVCON CLINICAL HISTORY: Spinal stenosis of lumbar region, unspecified whether neurogenic claudication present - Abnormal gait TECHNIQUE: Routine cervical and lumbosacral spine MR protocol without gadolinium. MQ: MRCLWO_1 COMPARISON: None. RESULT: CERVICAL: Motion degraded images. Counting reference: Craniocervical junction. Anatomic Variants: None. Localizer images: No significant findings. Alignment: Alignment is anatomic. Craniocervical junction: Craniocervical junction is normal. Cord: Levels of cord approximation due to spondylotic changes, further detailed below. No intramedullary signal abnormality. Bone marrow signal/fracture: No evidence of pathologic marrow infiltration. No evidence of prior fracture. Soft tissues: The paraspinal soft tissues are within normal limits. C2-C3: Disc/osteophyte complex, dorsal ligamentous hypertrophy, uncovertebral and facet hypertrophy; mild canal stenosis with cord approximation/abutment, moderate bilateral foraminal stenosis. C3-C4: Diffuse disc bulging, dorsal ligamentous hypertrophy, uncovertebral and facet hypertrophy; mild/moderate canal stenosis with cord approximation/abutment, moderate bilateral foraminal stenosis. C4-C5: Shallow disc/osteophyte complex and dorsal ligamentous hypertrophy without significant cord impact. Mild-moderate right and moderate left foraminal stenosis. C5-C6: Shallow disc bulging approximating the ventral cord. At least mild right and moderate left foraminal stenosis. C6-C7: Diffuse disc bulging approximating the ventral cord. At least moderate bilateral foraminal stenosis. C7-T1: At least moderate bilateral foraminal stenosis. Patent canal. No high-grade canal or foraminal compromise in the imaged thoracic spine to the level of T3-4. LUMBAR: Counting reference: Craniocervical and lumbosacral junctions For the purposes of this report, L4-5 is considered the level of the iliac crest and assume there are 5 lumbar-type vertebrae. Anatomic variant: None. Localizer images: Mild lumbar levocurvature centered at L2-3. Grade 1 degenerative spondylolisthesis at L3-4. Multilevel mild to moderate intervertebral disc space narrowing. Alignment: Alignment is anatomic. Bone marrow signal/fracture: No evidence of pathologic marrow infiltration. No evidence of prior fracture. Conus: The conus is within normal limits of signal intensity and morphology. Soft tissues: Paraspinal soft tissues are within normal limits. Lower thoracic spine: At T10-11, moderate bilateral foraminal stenosis. At T11-T12, mild right and at least moderate left foraminal stenosis. At T12-L1, diffuse disc bulging and facet and ligamentous hypertrophy approximating the conus, and moderate bilateral foraminal stenosis. Diffuse relative lumbar canal and foraminal narrowing on a developmental basis due to short pedicles. L1-L2: Diffuse disc bulging with superimposed broad-based disc protrusion, moderate facet and ligamentous hypertrophy, short pedicles; moderate-severe canal stenosis, severe right and moderate left foraminal stenosis. L2-L3: Shallow disc bulging, facet and ligamentous hypertrophy, short pedicles; mild canal stenosis with narrowing of each subarticular zone, at least moderate right and mild left foraminal stenosis. L3-L4: Spondylolisthesis, diffuse disc bulging, facet and ligamentous hypertrophy, short pedicles; moderate canal stenosis, moderate bilateral foraminal stenosis. L4-L5: Diffuse disc bulging with superimposed broad-based shallow disc protrusion, facet arthropathy, ligamentous hypertrophy, short pedicles; patent canal with narrowing of each subarticular zone, at least moderate right and moderate-severe left foraminal stenosis. L5-S1: Diffuse disc bulging, facet hypertrophy, short pedicles; patent canal and foramina. Sacrum and iliac wings: The visualized sacrum and iliac wings are within normal limits. The presacral soft tissues are normal in appearance. DIVISION OF RADIOLOGY Provider, [facility] - 01/24/2024 * * *Final Report* * * DATE OF EXAM: Jan 24 2024 2:17PM [facility] 0303 - MRI LUMBAR SPINE WO IVCON / PROCEDURE REASON: multiple diagnoses * * * * Physician Interpretation * * * * EXAMINATION: MRI LUMBAR SPINE WO IVCON, MRI CERVICAL SPINE WO IVCON CLINICAL HISTORY: Spinal stenosis of lumbar region, unspecified whether neurogenic claudication present - Abnormal gait TECHNIQUE: Routine cervical and lumbosacral spine MR protocol without gadolinium. MQ: MRCLWO_1 COMPARISON: None. RESULT: CERVICAL: Motion degraded images. Counting reference: Craniocervical junction. Anatomic Variants: None. Localizer images: No significant findings. Alignment: Alignment is anatomic. Craniocervical junction: Craniocervical junction is normal. Cord: Levels of cord approximation due to spondylotic changes, further detailed below. No intramedullary signal abnormality. Bone marrow signal/fracture: No evidence of pathologic marrow infiltration. No evidence of prior fracture. Soft tissues: The paraspinal soft tissues are within normal limits. C2-C3: Disc/osteophyte complex, dorsal ligamentous hypertrophy, uncovertebral and facet hypertrophy; mild canal stenosis with cord approximation/abutment, moderate bilateral foraminal stenosis. C3-C4: Diffuse disc bulging, dorsal ligamentous hypertrophy, uncovertebral and facet hypertrophy; mild/moderate canal stenosis with cord approximation/abutment, moderate bilateral foraminal stenosis. C4-C5: Shallow disc/osteophyte complex and dorsal ligamentous hypertrophy without significant cord impact. Mild-moderate right and moderate left foraminal stenosis. C5-C6: Shallow disc bulging approximating the ventral cord. At least mild right and moderate left foraminal stenosis. C6-C7: Diffuse disc bulging approximating the ventral cord. At least moderate bilateral foraminal stenosis. C7-T1: At least moderate bilateral foraminal stenosis. Patent canal. No high-grade canal or foraminal compromise in the imaged thoracic spine to the level of T3-4. LUMBAR: Counting reference: Craniocervical and lumbosacral junctions For the purposes of this report, L4-5 is considered the level of the iliac crest and assume there are 5 lumbar-type vertebrae. Anatomic variant: None. Localizer images: Mild lumbar levocurvature centered at L2-3. Grade 1 degenerative spondylolisthesis at L3-4. Multilevel mild to moderate intervertebral disc space narrowing. Alignment: Alignment is anatomic. Bone marrow signal/fracture: No evidence of pathologic marrow infiltration. No evidence of prior fracture. Conus: The conus is within normal limits of signal intensity and morphology. Soft tissues: Paraspinal soft tissues are within normal limits. Lower thoracic spine: At T10-11, moderate bilateral foraminal stenosis. At T11-T12, mild right and at least moderate left foraminal stenosis. At T12-L1, diffuse disc bulging and facet and ligamentous hypertrophy approximating the conus, and moderate bilateral foraminal stenosis. Diffuse relative lumbar canal and foraminal narrowing on a developmental basis due to short pedicles. L1-L2: Diffuse disc bulging with superimposed broad-based disc protrusion, moderate facet and ligamentous hypertrophy, short pedicles; moderate-severe canal stenosis, severe right and moderate left foraminal stenosis. L2-L3: Shallow disc bulging, facet and ligamentous hypertrophy, short pedicles; mild canal stenosis with narrowing of each subarticular zone, at least moderate right and mild left foraminal stenosis. L3-L4: Spondylolisthesis, diffuse disc bulging, facet and ligamentous hypertrophy, short pedicles; moderate canal stenosis, moderate bilateral foraminal stenosis. L4-L5: Diffuse disc bulging with superimposed broad-based shallow disc protrusion, facet arthropathy, ligamentous hypertrophy, short pedicles; patent canal with narrowing of each subarticular zone, at least moderate right and moderate-severe left foraminal stenosis. L5-S1: Diffuse disc bulging, facet hypertrophy, short pedicles; patent canal and foramina. Sacrum and iliac wings: The visualized sacrum and iliac wings are within normal limits. The presacral soft tissues are normal in appearance. IMPRESSION IMPRESSION: Moderate cervical spondylosis, as detailed. Multilevel cord approximation/abutment without intramedullary signal abnormality. Lumbar spondylosis superimposed on developmentally short pedicles, as detailed. Cervical Anatomic Variant: None. Assume 7 cervical vertebrae with counting from the craniocervical junction. Anatomic Lumbar Variant: None. L4-5 is considered the level of the iliac crest and assume there are 5 lumbar-type vertebrae. Datawarehouse Developer: [employer] Transcribe Date/Time: Jan 24 2024 2:21P (more content not included)... [facility] MRI CERVICAL SPINE WO IVCONo n 01-24-2024 MRI CERVICAL SPINE WO IVCON * * *Final Report* * * DATE OF EXAM: Jan 24 2024 2:17PM [facility] 0297 - MRI CERVICAL SPINE WO IVCON / PROCEDURE REASON: multiple diagnoses * * * * Physician Interpretation * * * * EXAMINATION: MRI LUMBAR SPINE WO IVCON, MRI CERVICAL SPINE WO IVCON CLINICAL HISTORY: Spinal stenosis of lumbar region, unspecified whether neurogenic claudication present - Abnormal gait TECHNIQUE: Routine cervical and lumbosacral spine MR protocol without gadolinium. MQ: MRCLWO_1 COMPARISON: None. RESULT: CERVICAL: Motion degraded images. Counting reference: Craniocervical junction. Anatomic Variants: None. Localizer images: No significant findings. Alignment: Alignment is anatomic. Craniocervical junction: Craniocervical junction is normal. Cord: Levels of cord approximation due to spondylotic changes, further detailed below. No intramedullary signal abnormality. Bone marrow signal/fracture: No evidence of pathologic marrow infiltration. No evidence of prior fracture. Soft tissues: The paraspinal soft tissues are within normal limits. C2-C3: Disc/osteophyte complex, dorsal ligamentous hypertrophy, uncovertebral and facet hypertrophy; mild canal stenosis with cord approximation/abutment, moderate bilateral foraminal stenosis. C3-C4: Diffuse disc bulging, dorsal ligamentous hypertrophy, uncovertebral and facet hypertrophy; mild/moderate canal stenosis with cord approximation/abutment, moderate bilateral foraminal stenosis. C4-C5: Shallow disc/osteophyte complex and dorsal ligamentous hypertrophy without significant cord impact. Mild-moderate right and moderate left foraminal stenosis. C5-C6: Shallow disc bulging approximating the ventral cord. At least mild right and moderate left foraminal stenosis. C6-C7: Diffuse disc bulging approximating the ventral cord. At least moderate bilateral foraminal stenosis. C7-T1: At least moderate bilateral foraminal stenosis. Patent canal. No high-grade canal or foraminal compromise in the imaged thoracic spine to the level of T3-4. LUMBAR: Counting reference: Craniocervical and lumbosacral junctions For the purposes of this report, L4-5 is considered the level of the iliac crest and assume there are 5 lumbar-type vertebrae. Anatomic variant: None. Localizer images: Mild lumbar levocurvature centered at L2-3. Grade 1 degenerative spondylolisthesis at L3-4. Multilevel mild to moderate intervertebral disc space narrowing. Alignment: Alignment is anatomic. Bone marrow signal/fracture: No evidence of pathologic marrow infiltration. No evidence of prior fracture. Conus: The conus is within normal limits of signal intensity and morphology. Soft tissues: Paraspinal soft tissues are within normal limits. Lower thoracic spine: At T10-11, moderate bilateral foraminal stenosis. At T11-T12, mild right and at least moderate left foraminal stenosis. At T12-L1, diffuse disc bulging and facet and ligamentous hypertrophy approximating the conus, and moderate bilateral foraminal stenosis. Diffuse relative lumbar canal and foraminal narrowing on a developmental basis due to short pedicles. L1-L2: Diffuse disc bulging with superimposed broad-based disc protrusion, moderate facet and ligamentous hypertrophy, short pedicles; moderate-severe canal stenosis, severe right and moderate left foraminal stenosis. L2-L3: Shallow disc bulging, facet and ligamentous hypertrophy, short pedicles; mild canal stenosis with narrowing of each subarticular zone, at least moderate right and mild left foraminal stenosis. L3-L4: Spondylolisthesis, diffuse disc bulging, facet and ligamentous hypertrophy, short pedicles; moderate canal stenosis, moderate bilateral foraminal stenosis. L4-L5: Diffuse disc bulging with superimposed broad-based shallow disc protrusion, facet arthropathy, ligamentous hypertrophy, short pedicles; patent canal with narrowing of each subarticular zone, at least moderate right and moderate-severe left foraminal stenosis. L5-S1: Diffuse disc bulging, facet hypertrophy, short pedicles; patent canal and foramina. Sacrum and iliac wings: The visualized sacrum and iliac wings are within normal limits. The presacral soft tissues are normal in appearance. IMPRESSION: Moderate cervical spondylosis, as detailed. Multilevel cord approximation/abutment without intramedullary signal abnormality. Lumbar spondylosis superimposed on developmentally short pedicles, as detailed. Cervical Anatomic Variant: None. Assume 7 cervical vertebrae with counting from the craniocervical junction. Anatomic Lumbar Variant: None. L4-5 is considered the level of the iliac crest and assume there are 5 lumbar-type vertebrae. Datawarehouse Developer: P[employer] Transcribe Date/Time: Jan 24 2024 2:21P Dictated by : BANDAR HELM MD This examination was interpreted and the report reviewed and electronically signed by: BANDAR HELM MD on Jan 24 2024 2:27PM (more content not included)... Normal [facility] MRI LUMBAR SPINE WO IVCONon 01-24-2024 MRI LUMBAR SPINE WO IVCON * * *Final Report* * * DATE OF EXAM: Jan 24 2024 2:17PM [facility] 0303 - MRI LUMBAR SPINE WO IVCON / PROCEDURE REASON: multiple diagnoses * * * * Physician Interpretation * * * * EXAMINATION: MRI LUMBAR SPINE WO IVCON, MRI CERVICAL SPINE WO IVCON CLINICAL HISTORY: Spinal stenosis of lumbar region, unspecified whether neurogenic claudication present - Abnormal gait TECHNIQUE: Routine cervical and lumbosacral spine MR protocol without gadolinium. MQ: MRCLWO_1 COMPARISON: None. RESULT: CERVICAL: Motion degraded images. Counting reference: Craniocervical junction. Anatomic Variants: None. Localizer images: No significant findings. Alignment: Alignment is anatomic. Craniocervical junction: Craniocervical junction is normal. Cord: Levels of cord approximation due to spondylotic changes, further detailed below. No intramedullary signal abnormality. Bone marrow signal/fracture: No evidence of pathologic marrow infiltration. No evidence of prior fracture. Soft tissues: The paraspinal soft tissues are within normal limits. C2-C3: Disc/osteophyte complex, dorsal ligamentous hypertrophy, uncovertebral and facet hypertrophy; mild canal stenosis with cord approximation/abutment, moderate bilateral foraminal stenosis. C3-C4: Diffuse disc bulging, dorsal ligamentous hypertrophy, uncovertebral and facet hypertrophy; mild/moderate canal stenosis with cord approximation/abutment, moderate bilateral foraminal stenosis. C4-C5: Shallow disc/osteophyte complex and dorsal ligamentous hypertrophy without significant cord impact. Mild-moderate right and moderate left foraminal stenosis. C5-C6: Shallow disc bulging approximating the ventral cord. At least mild right and moderate left foraminal stenosis. C6-C7: Diffuse disc bulging approximating the ventral cord. At least moderate bilateral foraminal stenosis. C7-T1: At least moderate bilateral foraminal stenosis. Patent canal. No high-grade canal or foraminal compromise in the imaged thoracic spine to the level of T3-4. LUMBAR: Counting reference: Craniocervical and lumbosacral junctions For the purposes of this report, L4-5 is considered the level of the iliac crest and assume there are 5 lumbar-type vertebrae. Anatomic variant: None. Localizer images: Mild lumbar levocurvature centered at L2-3. Grade 1 degenerative spondylolisthesis at L3-4. Multilevel mild to moderate intervertebral disc space narrowing. Alignment: Alignment is anatomic. Bone marrow signal/fracture: No evidence of pathologic marrow infiltration. No evidence of prior fracture. Conus: The conus is within normal limits of signal intensity and morphology. Soft tissues: Paraspinal soft tissues are within normal limits. Lower thoracic spine: At T10-11, moderate bilateral foraminal stenosis. At T11-T12, mild right and at least moderate left foraminal stenosis. At T12-L1, diffuse disc bulging and facet and ligamentous hypertrophy approximating the conus, and moderate bilateral foraminal stenosis. Diffuse relative lumbar canal and foraminal narrowing on a developmental basis due to short pedicles. L1-L2: Diffuse disc bulging with superimposed broad-based disc protrusion, moderate facet and ligamentous hypertrophy, short pedicles; moderate-severe canal stenosis, severe right and moderate left foraminal stenosis. L2-L3: Shallow disc bulging, facet and ligamentous hypertrophy, short pedicles; mild canal stenosis with narrowing of each subarticular zone, at least moderate right and mild left foraminal stenosis. L3-L4: Spondylolisthesis, diffuse disc bulging, facet and ligamentous hypertrophy, short pedicles; moderate canal stenosis, moderate bilateral foraminal stenosis. L4-L5: Diffuse disc bulging with superimposed broad-based shallow disc protrusion, facet arthropathy, ligamentous hypertrophy, short pedicles; patent canal with narrowing of each subarticular zone, at least moderate right and moderate-severe left foraminal stenosis. L5-S1: Diffuse disc bulging, facet hypertrophy, short pedicles; patent canal and foramina. Sacrum and iliac wings: The visualized sacrum and iliac wings are within normal limits. The presacral soft tissues are normal in appearance. IMPRESSION: Moderate cervical spondylosis, as detailed. Multilevel cord approximation/abutment without intramedullary signal abnormality. Lumbar spondylosis superimposed on developmentally short pedicles, as detailed. Cervical Anatomic Variant: None. Assume 7 cervical vertebrae with counting from the craniocervical junction. Anatomic Lumbar Variant: None. L4-5 is considered the level of the iliac crest and assume there are 5 lumbar-type vertebrae. Datawarehouse Developer: [facility] Transcribe Date/Time: Jan 24 2024 2:21P Dictated by : BANDAR HELM MD This examination was interpreted and the report reviewed and electronically signed by: BANDAR HELM MD on Jan 24 2024 2:27PM E (more content not included)... Normal [facility] No Panel Informationon 01-23 IMPRESSION: Moderate cervical spondylosis, as detailed. Multilevel cord approximation/abutment without intramedullary signal abnormality. Lumbar spondylosis superimposed on developmentally short pedicles, as detailed. Cervical Anatomic Variant: None. Assume 7 cervical vertebrae with counting from the craniocervical junction. Anatomic Lumbar Variant: None. L4-5 is considered the level of the iliac crest and assume there are 5 lumbar-type vertebrae. Datawarehouse Developer: [facility] Transcribe Date/Time: Jan 24 2024 2:21P Dictated by : BANDAR HELM MD This examination was interpreted and the report reviewed and electronically signed by: BANDAR HELM MD on Jan 24 2024 2:27PM EST DIVISION OF RADIOLOGY Radiology Study observation (narrative) [facility] No Panel InformationOrdered By: [facility] Provider on 01-24-2024 [facility] CNOVon 01-23-2024 CNOV Office Visit (INTMWS ) ELYSE MALONEY ([id number]) 1935 M Date Time Provider Department 01/23/24 10:20 AM [facility] INTMWS During your visit today, we recorded the following information about you: Pulse Respiration Blood pressure Weight 64/minute 16/minute 148/82 86.2 kg Ang Vickers MD 01/24/2024 7:13 AM Signed This note was created using [employer]. Subjective Elyse Maloney is a 88 year old male was here for follow up. Symptoms of orthostatic dizziness, loss of hand coordination, unsteady gati, and blank stares were stable. He resisted the use of assistive devices for preventing falls. He's seen neurology [facility] and initial concern was neuropathy. Parkinsonism was felt less likely. Brain MRI showed diffuse small vessel disease. EMG showed cervical and lumbar radiculopathy. Neuropathy was not demonstrated but cannot be excluded. MRI of cervical spine and lumbar spine was scheduled. Review of Systems No change. 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) Obstructive Sleep Apnea Other Seborrheic Keratosis Vertebral Artery Stenosis, Left Atrial Fibrillation (Hcc) Coronary Atherosclerosis Impaired Fasting Glucose Orthostatic Dizziness Abnormal Gait Social History Tobacco Use Smoking status: Former Packs/day: 0.50 Years: 20.00 Additional pack years: 0.00 Total pack years: 10.00 Types: Cigarettes Quit date: 08/28/1977 Years since quittin.4 Smokeless tobacco: Never Substance Use Topics Alcohol use: Yes Alcohol/week: 3.3 standard drinks of alcohol Types: 2 Cans of Beer (12oz), 1 Martini/Manhattan Drinks per week Drug use: No Current Outpatient Medications Medication Sig metoprolol succinate ER (TOPROL XL) 100 mg Take 1 tablet by mouth once daily. OTC PRODUCT Take 1 tablet by mouth twice daily. PreserVision atorvastatin (LIPITOR) 40 mg tablet Take 1 tablet by mouth daily at bedtime. For cholesterol. [facility] medication. furosemide (LASIX) 20 mg tablet Take 1 tablet by mouth three times a week. Mon, Mon, Monday. VA medication. lisinopril (ZESTRIL, PRINIVIL) 40 mg tablet Take 1 tablet by mouth once daily. [facility] medication. CPAP Initiate CPAP @ 6 cm of water with humidification. Mask (per patient preference) optional chin strap (if indicated) , filters, tubing, humidifier and lifetime supplies. tamsulosin (FLOMAX) 0.4 mg Take 1 capsule by mouth daily at bedtime. apixaban (ELIQUIS) 5 mg tab(s) Take 5 mg by mouth twice daily. finasteride (PROSCAR) 5 mg tablet Take 1 tablet by mouth once daily. [facility] medication. COMPOUNDED PRESCRIPTION CPAP mask, tubing, and supplies. Dx: ICD9: 327.23, ICD10: G47.33 COMPOUNDED PRESCRIPTION replacment cpap machine with heated humifier, replacemnt mask and supplies. set presssure at 6 cm and H2o. ISAAC dx. MULTIVITAMIN ORAL TAB Take one(1) tablet daily. No current facility-administered medications for this visit. Objective BP 148/82 Pulse 64 Resp 16 Wt 86.2 kg (190 lb) BMI 28.89 kg/m? Physical Exam Constitutional: General: He is not in acute distress. Appearance: He is not ill-appearing. Neurological: General: No focal deficit present. Gait: Gait abnormal. Test results pertinent to today's visit were reviewed and discussed with the patient. Assessment and Plan 1. Abnormal gait - ICD9: 781.2, ICD10: R26.9 (primary diagnosis) - He asks for coordination with neurology after this round of testing. 2. Orthostatic dizziness - ICD9: 780.4, ICD10: R42 - Stable. Fall precautions and use of cane encouraged. 3. Essential hypertension - ICD9: 401.9, ICD10: I10 Fair. Time was spent mostly for review and discussion. We will wait for neurology recommendations after his spine MRI. Ang Vickers MD Allergies As of Date: 01/23/2024 Noted Allergy Reaction BACLOFEN 10/02/2018 14 - Other: See Comments Comments: vertigo Date Reviewed: 01/23/2024 Reviewed by: Rachana Vidal MA - Fully Assessed Reason for Visit: Follow Up [171] Primary Visit Diagnosis:Abnormal gait [R26.9] Other Visit Diagnoses:Orthostatic dizziness [R42] Essential hypertension [I10] Prescriptions as of 01/24/2024 - metoprolol succinate ER (TOPROL XL) 100 mg Take 1 tablet by mouth once daily. - OTC PRODUCT Take 1 tablet by mouth twice daily. PreserVision - atorvastatin (LIPITOR) 40 mg tablet Take 1 tablet by mouth daily at bedtime. For cholesterol. [facility] medication. - furosemide (LASIX) 20 mg tablet Take 1 tablet by mouth three times a week. Mon, Mon, Monday. [facility] medication. - lisinopril (ZESTRIL, PRINIVIL) 40 mg tablet Take 1 tablet by mouth once daily. [facility] medication. - CPAP Initiate CPAP @ 6 cm of water with humidification. Mask (per patient preference) optional chin strap (if indicated) , filters, tubi (more content not included)... Normal [facility] 01-19-2024 [facility] Telephone ([facility]) ELYSE MALONEY ([id number]) 1935 M Date Time Provider Department 01/19/24 MARSHA ARIAS [facility] During your visit today, we recorded the following information about you: Marsha Arias PA-C 01/19/2024 11:35 AM Signed EMG of the upper and lower extremity show likely degeneration of the spine contributing to patient's symptoms. Would like patient to have MRI of the cervical and lumbar spine performed. LILIAN Madera Jessica, LPN 01/19/2024 2:18 PM Signed TC to pt with no answer. Left VM to return call. ALEX Villatoro M Robin, RODRIGUE 01/19/2024 3:01 PM Signed Pt returned call and given provider's message below with verbalized understanding. Pt asking if provider wants him to schedule f/u appt? Transferred to pss to schedule MRI. Allergies As of Date: 01/19/2024 Noted Allergy Reaction BACLOFEN 10/02/2018 14 - Other: See Comments Comments: vertigo Date Reviewed: 12/05/2023 Reviewed by: Marsha Arias PA-C - Fully Assessed Reason for Visit: Results [95] Primary Visit Diagnosis:Spinal stenosis of lumbar region, unspecified whether neurogenic claudication present [M48.061] Other Visit Diagnoses:Spinal stenosis of cervical region [M48.02] Abnormal gait [R26.9] Order(s):MRI LUMBAR SPINE WO IVCON [[id number]] Order #: [id number] FUTURE MRI CERVICAL SPINE WO IVCON [[id number]] Order #: [id number] FUTURE Prescriptions as of 01/23/2024 - metoprolol succinate ER (TOPROL XL) 100 mg Take 1 tablet by mouth once daily. - OTC PRODUCT Take 1 tablet by mouth twice daily. PreserVision - atorvastatin (LIPITOR) 40 mg tablet Take 1 tablet by mouth daily at bedtime. For cholesterol. [facility] medication. - furosemide (LASIX) 20 mg tablet Take 1 tablet by mouth three times a week. Mon, Mon, Monday. [facility] medication. - lisinopril (ZESTRIL, PRINIVIL) 40 mg tablet Take 1 tablet by mouth once daily. [facility] medication. - CPAP Initiate CPAP @ 6 cm of water with humidification. Mask (per patient preference) optional chin strap (if indicated) , filters, tubing, humidifier and lifetime supplies. - tamsulosin (FLOMAX) 0.4 mg Take 1 capsule by mouth daily at bedtime. - apixaban (ELIQUIS) 5 mg tab(s) Take 5 mg by mouth twice daily. - finasteride (PROSCAR) 5 mg tablet Take 1 tablet by mouth once daily. [facility] medication. - COMPOUNDED PRESCRIPTION CPAP mask, tubing, and supplies. Dx: ICD9: 327.23, ICD10: G47.33 - COMPOUNDED PRESCRIPTION replacment cpap machine with heated humifier, replacemnt mask and supplies. set presssure at 6 cm and H2o. ISAAC dx. - MULTIVITAMIN ORAL TAB Take one(1) tablet daily. 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] 08/15/2010 07/12/2013 Solar Lentigines [L81.4] 08/15/2010 06/07/2017 Melanocytic Nevus moles of trunk: chest and sangeeta*08/15/2010 07/12/2013 Melanocytic Nevus moles of arms: forearms [D22.*08/15/2010 07/12/2013 Obstructive sleep apnea [G47.33] 08/16/2010 Actinic skin damage [L57.8] 02/19/2013 06/07/2017 Other seborrheic keratosis [L82.1] 02/19/2013 Postinflammatory skin changes [R23.8] 05/16/2013 06/07/2017 Vertebral artery stenosis, left [I65.02] 10/08/2018 Atrial fibrillation (HCC) [I48.91] 04/29/2020 Coronary atherosclerosis [I25.10] 09/21/2020 Hypomagnesemia [E83.42] 02/18/2022 05/24/2023 Impaired fasting glucose [R73.01] 02/18/2022 Vertigo [R42] 05/31/2022 11/22/2023 Orthostatic dizziness [R42] 11/22/2023 Abnormal gait [R26.9] 11/22/2023 Encounter Status:Closed by MARSHA ARIAS on 01/19/24 Normal [facility](NEURO/NI)on 01-19-2024 Results can be seen in attached scanned documents. If you are a patient reviewing this test result, call the doctor who ordered the test with any questions. [facility] MR Brain WO contraston 12-17 IMPRESSION: No acute intracranial abnormality. 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 Datawarehouse Developer: [email or web address] Transcribe Date/Time: Dec 18 2023 11:42A Dictated by : CLAIRE WILKINSON MD This examination was interpreted and the report reviewed and electronically signed by: CLAIRE WILKINSON MD on Dec 18 2023 11:45AM [facility] DIVISION OF RADIOLOGY * * *Final Report* * * DATE OF EXAM: Dec 18 2023 11:41AM [facility] 0294 - MRI BRAIN WO IVCON / PROCEDURE REASON: multiple diagnoses * * * * Physician Interpretation * * * * EXAMINATION: MRI BRAIN WO IVCON CLINICAL HISTORY: Dizziness TECHNIQUE: Routine noncontrast MRI protocol including diffusion images. MQ: [id number]_2 COMPARISON: Head CT 11/24/2023 RESULT: Acute Change: There is no evidence of restricted diffusion to suggest an acute infarct. Hemorrhage: No evidence of intraparenchymal hemorrhage. Mass Lesion/ Mass Effect: No evidence of an intracranial mass or extra-axial fluid collection. No significant mass effect. Chronic Change: Patchy T2 FLAIR hyperintensities in the bilateral cerebral white matter compatible sequelae of chronic small vessel disease. Small remote infarct is present in the right cerebellar hemisphere. Parenchyma: Diffuse age advanced brain volume loss without lobar predominance. Ventricles: No hydrocephalus. Skull Base: Hypothalamic and pituitary region are grossly normal. Craniocervical junction is normal. No significant marrow replacement process. Vasculature: Major intracranial arterial structures, and dural venous sinuses show typical flow void, suggesting patency by spin echo criteria. Other: Scattered mucosal thickening and retention cysts in the bilateral paranasal sinuses without air-fluid levels. Left scleral banding. DIVISION OF RADIOLOGY Provider, [facility] - 12/18/2023 * * *Final Report* * * DATE OF EXAM: Dec 18 2023 11:41AM [facility] 0294 - MRI BRAIN WO IVCON / PROCEDURE REASON: multiple diagnoses * * * * Physician Interpretation * * * * EXAMINATION: MRI BRAIN WO IVCON CLINICAL HISTORY: Dizziness TECHNIQUE: Routine noncontrast MRI protocol including diffusion images. MQ: [id number]_2 COMPARISON: Head CT 11/24/2023 RESULT: Acute Change: There is no evidence of restricted diffusion to suggest an acute infarct. Hemorrhage: No evidence of intraparenchymal hemorrhage. Mass Lesion/ Mass Effect: No evidence of an intracranial mass or extra-axial fluid collection. No significant mass effect. Chronic Change: Patchy T2 FLAIR hyperintensities in the bilateral cerebral white matter compatible sequelae of chronic small vessel disease. Small remote infarct is present in the right cerebellar hemisphere. Parenchyma: Diffuse age advanced brain volume loss without lobar predominance. Ventricles: No hydrocephalus. Skull Base: Hypothalamic and pituitary region are grossly normal. Craniocervical junction is normal. No significant marrow replacement process. Vasculature: Major intracranial arterial structures, and dural venous sinuses show typical flow void, suggesting patency by spin echo criteria. Other: Scattered mucosal thickening and retention cysts in the bilateral paranasal sinuses without air-fluid levels. Left scleral banding. IMPRESSION IMPRESSION: No acute intracranial abnormality. 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 Datawarehouse Developer: CARA Transcribe Date/Time: Dec 18 2023 11:42A Dictated by : CLAIRE WILKINSON MD This examination was interpreted and the report reviewed and electronically signed by: CLAIRE WILKINSON MD on Dec 18 2023 11:45AM EST [facility] Radiology Study observation (narrative) [facility] MR Brain WO contrastOrdered By: [facility] Provider on 12-18-2023 [facility] Echo Completeon 11-21-2023 Echo Complete [facility] [address] [place] [address] Echo Complete 11/21/23 1240 MR#: [id number] Acct: [id number] Name: ELYSE MALONEY Rep #: [id number] : 1935 87 From: Newton Palmer MD Attending Dr: Aguilar Carrion, CRIMINALIST-C Status: REG CLI Ordering Dr: Chapis Carlson Date: 10/27 02/18 Location: CVS Sex: M C Admitted: Reason For Study: SYNCOPE Procedure This was a 2D Doppler, Color Flow transthoracic echocardiogram. Exam performed in department. Left Ventricle Normal LV size. Left ventricular systolic function is normal. The left ventricular ejection fraction is 55 %. No regional wall motion abnormalities noted. Right Ventricle Normal RV size. Normal systolic function. Atria The left atrium is mildly enlarged. There is mild biatrial dilatation. The right atrium is mildly enlarged. Mitral Valve Normal mitral valve. Tricuspid Valve Normal tricuspid valve. Mild tricuspid valve insufficiency. Pulmonary artery systolic pressure is 30 mmHg. Aortic Valve Trisinus/trileaflet aortic valve. Pulmonic Valve Normal pulmonic valve. Great Vessels Normal aortic root. The pulmonary artery is normal size. Normal inferior vena cava. Pericardium/Pleural No pericardial effusion. MMode/2D Measurements Calculations LVIDd: 4.8 cm IVSd: 1.4 cm LVOT diam: 2.0 cm LVIDs: 3.8 cm LVPWd: 0.93 cm LVOT area: 3.0 cm2 RVDd: 4.2 cm FS: 20.4 % Ao root diam: 3.5 cm LAV(MOD-bp): 90.0 ml LVAd ap4: 28.2 cm2 LAV(MOD-bp) Indexed: 44.5 ml/m2 LVLd ap4: 7.9 cm LAV(MOD-sp2): 103.6 ml EDV(MOD-sp4): 83.8 ml LAV(MOD-sp4): 74.1 ml EDV(sp4-el): 85.2 ml LVAs ap4: 17.9 cm2 LVLs ap4: 6.7 cm ESV(MOD-sp4): 42.5 ml ESV(sp4-el): 40.8 ml EF(MOD-sp4): 49.3 % EF(sp4-el): 52.1 % LVAd ap2: 33.5 cm2 SV(MOD-sp4): 41.3 ml SV(MOD-sp2): 55.3 ml LVLd ap2: 8.6 cm EDV(MOD-sp2): 112.5 ml EDV(sp2-el): 110.2 ml LVAs ap2: 22.1 cm2 LVLs ap2: 7.3 cm ESV(MOD-sp2): 57.1 ml ESV(sp2-el): 56.6 ml EF(MOD-sp2): 49.2 % SV(sp4-el): 44.4 ml LA dimension(2D): 5.8 cm LA A4 area: 23.6 cm2 RA A4 area: 20.3 cm2 TAPSE: 1.9 cm Time Measurements MV dec time: 0.18 sec Doppler Measurements Calculations MV E max rachael: 71.9 cm/sec Lat Peak E' Rachael: 7.8 cm/sec Med Peak E' Rachael: 6.2 cm/sec E/E' lat: 9.2 E/E' med: 11.7 Ao V2 max: 156.5 cm/sec LV V1 max: 78.9 cm/sec SV(LVOT): 49.0 ml Ao max P.9 mmHg LV V1 max P.5 mmHg Ao V2 mean: 106.0 cm/sec LV V1 mean P.4 mmHg Ao mean P.2 mmHg LV V1 mean: 54.2 cm/sec Ao V2 VTI: 33.0 cm LV V1 VTI: 16.3 cm AV (velocity ratio): 0.50 SJ(I,D): 1.5 cm2 SJ(V,D): 1.5 cm2 PA V2 max: 73.0 cm/sec TR max rachael: 258.0 cm/sec PA max PG (full): 0.44 mmHg TR max P.6 mmHg ECHO/Echo Complete Interpretation Summary Left ventricular systolic function is normal. The left ventricular ejection fraction is 55 %. Normal LV size. There is mild biatrial dilatation. Ordering Physician: Chapis Carlson Referring Physician: Ang Vickers M.D. Performed By: Shweta Bauer RDCS 11/21/23 1423 Date Newton Palmer MD CC: JANA Carrion; Dr. Ang Vickers MD; SANDRA Rios Date Dictated: 11/21/23 1240 Date Transcribed: 11/21/23 1423 Datawarehouse Developer: Signed Normal [facility] Stress Reporton 11-16-2023 Stress Report [facility] [address] [place] [address] MR#: [id number] Acct: [id number] Name: ELYSE MALONEY Rep #: [id number] : 1935 87 From: Newton Palmer MD Primary Care: Dr. Ang Vickers MD Status: REG CLI Referring Dr: Aguilar Carrion NP Sex: M C Stress Test Report Pharmacologic myocardial perfusion stress test. 87-year-old man with a history of coronary disease and atrial fibrillation Resting EKG demonstrates atrial fibrillation with a rate of 63 bpm. Resting blood pressure is 150/98 mmHg. 0.4 mg of regadenoson was infused per usual protocol followed by rapid intravenous saline flush injection. Continuous EKG monitoring was performed. The maximum heart rate was 79 bpm which was 58% of max impacted heart rate the maximum workload was 1 metabolic equivalent. At rest there were no ST or T wave changes noted to suggest ischemia and at peak infusion nonspecific ST changes were noted which did not meet the criteria for ischemia. No clinical angina is noted. The final blood pressure was 140/84 mmHg. Myocardial perfusion protocol. 11 point mCi of technetium 99m sestamibi was injected at rest. 0.4 mg of regadenoson was infused per usual protocol. At peak infusion 33.8 mCi of technetium 99m sestamibi was injected stress images were obtained stress and rest images were reconstructed and compared in the short axis vertical long and horizontal long axis. Gated images were also obtained. Perfusion SPECT analysis: Review of the stress images demonstrate normal uptake of tracer noted in all areas of the myocardium. The resting images similar demonstrated normal uptake of tracer noted in all areas of the myocardium. No areas of reversibility are noted to suggest ischemia and no previous infarct is noted. Gated SPECT analysis: The gated ejection fraction is 56%. Conclusion: Normal pharmacologic myocardial perfusion stress test. Preserved ejection fraction. 11/16/23 1257 Date Newton Palmer MD CC: JANA Carrion; Dr. Ang Vickers MD Date Dictated: 11/16/23 1256 Date Transcribed: 11/16/231255 Datawarehouse Developer: [place] Signed Normal [facility] Basophil percentageOrdered B y: Altaf Manning on 10-04-2023 Bilirubin [Mass/Vol] 0.90 mg/dL 0.20-1.00 [facility] Comment on above: For patients on eltr ombopag therapy, use of Dimension [place] TBIL is not recommended. Protein [Mass/Vol] 7.1 g/dL 6.4-8.2 [facility] Direct bilirubinOrdered By: Altaf Manning on 10-04-2023 Bilirubin.direct [Mass/Vol] 0.29 mg/dL 0.00-0.30 [facility] Laboratory - Chemistry and C hemistry - challengeOrdered By: Altaf Manning on 10-04-2023 ALP [Catalytic activity/Vol] 97 U/L 45-117 [facility] ALT [Catalytic activity/Vol] 26 U/L 16-61 [facility] Globulin (S) [Mass/Vol] 3.9 g/dL 2.2-4.2 [facility] Thin prep Papanicolaou smear with manual screeningOrdered By: Altaf Maninng on 10-04-2023 Thin prep Papanicolaou smear with manual screening 3.2 g/dL 3.2-5.0 [facility] Thin prep Papanicolaou smear with manual screening 22 U/L 15-37 [facility] No Panel Informationon 05-31 [facility] Absolute lymphocyte counton 02-08-2022 Lymphocytes Auto (Unsp spec) [#/Vol] 1.00 10*3/uL 0.83-4.51 [facility] Work Phone: Basophil percentageon 2021 Basophils/100 WBC (Bld) 0.4 % 0-1 [facility] Work Phone: Chloride [Moles/Vol] 104 mmol/L 98-107 [facility] Work Phone: Eosinophils/100 WBC (Bld) 2.5 % 0-5 [facility] Work Phone: Glucose [Mass/Vol] 93 mg/dL 74-106 [facility] Work Phone: Neutrophils (Bld) [#/Vol] 6.9 10*3/uL 2.0-7.7 [facility] Work Phone: Neutrophils/100 WBC (Bld) 76.0 % 47-70 [facility] Work Phone: Potassium [Moles/Vol] 4.9 mmol/L 3.5-5.1 [facility] Work Phone: Comment on above: Moderate Hemolysis, Result may be falsely increased. Sodium [Moles/Vol] 135 mmol/L 136-145 [facility] Work Phone: WBC (Bld) [#/Vol] 9.1 10*3/uL 4.4-11.0 [facility] Work Phone: Blood erythrocytes count (nu mber/volume)on 02-08-2022 RBC (Bld) [#/Vol] 4.12 10*6/uL 4.6-6.2 [facility] Work Phone: Blood hemoglobin measurement (mass/volume)on 02-08-2022 Hemoglobin (Bld) [Mass/Vol] 13.2 g/dL 13.0-16.5 [facility] Work Phone: Blood lymphocytes/100 leukoc yteson 02-08-2022 Lymphocytes/100 WBC (Bld) 11.0 % 19-41 [facility] Work Phone: Blood monocytes/100 leukocyt eson 02-08-2022 Monocytes/100 WBC (Bld) 9.8 % 0-10 [facility] Work Phone: Blood platelet mean volumeon 02-08-2022 Platelet mean volume (Bld) [Entitic vol] 10.7 fL 6.2-12.0 [facility] Work Phone: Determination of erythrocyte mean corpuscular volume (MCV)on 02-08-2022 MCV (RBC) [Entitic vol] 96.6 fL 80-94 [facility] Work Phone: Erythrocyte sedimentation ra gabriela 02-08-2022 ESR (Bld) [Velocity] 24 mm/h 0-20 [facility]: Hematocrit Auto (Bld) [Volum e fraction]on 02-08-2022 Hematocrit (Bld) [Volume fraction] 39.8 % 40-54 [facility] Work Phone: Laboratory - Chemistry and C hemistry - challengeon 02-08-2022 CO2 [Moles/Vol] 28.0 mmol/L 21.0-32.0 [facility] Work Phone: Urea nitrogen/Creatinine [Mass ratio] 17.1 mg/mg 10-20 [facility] Work Phone: Laboratory - Hematology and Cell countson 02-08-2022 Erythrocyte distribution width (RBC) [Entitic vol] 49.8 fL 35.1-43.9 [facility] Work Phone: Erythrocyte distribution width (RBC) [Ratio] 14.1 % 11.6-14.6 [facility] Work Phone: Immature granulocytes/100 WBC (Bld) 0.300 % 0.0-0.9 [facility] Work Phone: Comment on above: IG% - Immature Granu locytes (promyelocytes, myelocytes and metamyelocytes) > 1% indicates that a LEFT SHIFT is Present. MCH (RBC) [Entitic mass] 32.0 pg 27.0-32.0 [facility] Work Phone: Nucleated RBC/100 WBC (Bld) [Ratio] 0 % 0-5 [facility] Work Phone: MCHC Auto (RBC) [Mass/Vol]on 02-08-2022 MCHC (RBC) [Mass/Vol] 33.2 g/dL 32-36 [facility] Work Phone: No Panel Informationon 02-08 Estimated Creatinine Clearance Calc 60.40 ml/min [facility] Work Phone: Estimated GFR (MDRD) Amer 99 mL/min >60 [facility] Work Phone: Comment on above: GFR Calc Estimated GFR (MDRD) Non-Af Amer 82 mL/min >60 [facility] Work Phone: Comment on above: Non- GFR Calc Platelets bldon 02-08-2022 Platelets (Bld) [#/Vol] 192 10*3/uL 150-450 [facility] Work Phone: Serum or plasma C reactive p rotein measurement (mass/volume)on 02-08-2022 CRP [Mass/Vol] 13.50 mg/L 0.0-3.0 [facility] Work Phone: Comment on above: C-Reactive Protein ( CRP) provides useful information for thediagnosis, therapy and monitoring of inflammatory processesand associated diseases. For the evaluation of Relative Riskfor Cardiovascular Disease, a High Sensitivity CRP (HSCRP)should be ordered. Serum or plasma calcium paula urement (mass/volume)on 02-08-2022 Calcium [Mass/Vol] 10.0 mg/dL 8.5-10.1 [facility] Work Phone: Serum or plasma creatinine m easurement (mass/volume)on 02-08-2022 Creatinine [Mass/Vol] 0.94 mg/dL 0.70-1.30 [facility] Work Phone: Comment on above: The validity of the calculated GFR & GFRAA in patients over 70 years has not been determined. Clinical correlation is essential. Serum or plasma urea nitroge n measurement (mass/volume)on 02-08-2022 Urea nitrogen [Mass/Vol] 16 mg/dL 7-18 [facility] Work Phone: Thin prep Papanicolaou smear with manual screeningon 02-08-2022 Thin prep Papanicolaou smear with manual screening 3 5-15 [facility] Work Phone: XR TIBIA FIBULA 2V AP/LAT LE FTon 02-07-2022 [facility] XR Tibia and Fibula - left A P and Lateralon 02-07-2022 IMPRESSION: Soft tissue swelling without radiographic evidence of acute osseous abnormality. Datawarehouse Developer: CARA Transcribe Date/Time: Feb 07 2022 9:58A Dictated by : KYREE DOS SANTOS MD This examination was interpreted and the report reviewed and electronically signed by: KYREE DOS SANTOS MD on Feb 07 2022 9:59AM EST [facility]_DO_NOT_USE _DIVISION OF RADIOLOGY * * *Final Report* * * DATE OF EXAM: Feb 07 2022 9:51AM [facility] [id number] - XR TIBIA FIBULA 2V AP/LAT LT / PROCEDURE REASON: Cellulitis of left leg * * * * Physician Interpretation * * * * CLINICAL INDICATION: Cellulitis of the left leg TECHNIQUE: AP and lateral radiographs of the left tibia/fibula COMPARISON: None FINDINGS: No acute fracture or dislocation identified. Status post medial knee compartment arthroplasty. No radiographic evidence of destructive osseous lesion. Plantar and miniscule dorsal calcaneal enthesophytes. Atherosclerotic calcification of the vasculature. Soft tissue swelling about the calf. [email or web address]_NOT_USE _DIVISION OF RADIOLOGY Provider, [facility] - 02/07/2022 * * *Final Report* * * DATE OF EXAM: Feb 07 2022 9:51AM [id number] - XR TIBIA FIBULA 2V AP/LAT LT / PROCEDURE REASON: Cellulitis of left leg * * * * Physician Interpretation * * * * CLINICAL INDICATION: Cellulitis of the left leg TECHNIQUE: AP and lateral radiographs of the left tibia/fibula COMPARISON: None FINDINGS: No acute fracture or dislocation identified. Status post medial knee compartment arthroplasty. No radiographic evidence of destructive osseous lesion. Plantar and miniscule dorsal calcaneal enthesophytes. Atherosclerotic calcification of the vasculature. Soft tissue swelling about the calf. IMPRESSION IMPRESSION: Soft tissue swelling without radiographic evidence of acute osseous abnormality. Datawarehouse Developer: [email or web address] Transcribe Date/Time: Feb 07 2022 9:58A Dictated by : KYREE DOS SANTOS MD This examination was interpreted and the report reviewed and electronically signed by: KYREE DOS SANTOS MD on Feb 07 2022 9:59AM EST [facility] Radiology Study observation (narrative) [facility] XR Tibia and Fibula - left A P and LateralOrdered By: [facility] Provider on 02-07-2022 [facility] Vital Signs Date Time Vital Sign Value Performing Clinician Facility 01-09-2025 10:21-0400 Body mass index (BMI) [Ratio] 27.24 kg/m2 Ang Vickers MD Work Phone: [facility] 01-09-2025 10:21-0400 Body temperature 97.3 [degF] Ang Vickers MD Work Phone: [facility] 01-09-2025 10:21-0400 Body weight 86.1 kg Ang Vickers MD Work Phone: [facility] 01-09-2025 10:21-0400 Diastolic blood pressure 76 mm[Hg] Ang Vickers MD Work Phone: [facility] 01-09-2025 10:21-0400 Heart rate 64 /min Ang Vickers MD Work Phone: [facility] 01-09-2025 10:21-0400 Respiratory rate 12 /min Ang Vickers MD Work Phone: [facility] 01-09-2025 10:21-0400 Systolic blood pressure 130 mm[Hg] Ang Vickers MD Work Phone: [facility] 11-22-2024 14:27-0400 Diastolic blood pressure 58 mm[Hg] Ang Vickers MD Work Phone: [facility] 11-22-2024 14:27-0400 Systolic blood pressure 124 mm[Hg] Ang Vickers MD Work Phone: [facility] 11-22-2024 14:00-0400 Body height 177.8 cm Ang Vickers MD Work Phone: [facility] 11-22-2024 14:00-0400 Body mass index (BMI) [Ratio] 27.84 kg/m2 Ang Vickers MD Work Phone: [facility] 11-22-2024 14:00-0400 Body temperature 96.6 [degF] Ang Vickers MD Work Phone: [facility] 11-22-2024 14:00-0400 Body weight 88 kg Ang Vickers MD Work Phone: [facility] 11-22-2024 14:00-0400 Heart rate 71 /min Ang Vickers MD Work Phone: [facility] 11-22-2024 14:00-0400 Respiratory rate 14 /min Ang Vickers MD Work Phone: [facility] 11-22-2024 14:00-0400 SaO2% (BldA) [Mass fraction] 99 % Ang Vickers MD Work Phone: [facility] 09-19-2024 08:19-0500 Body height 177.8 cm Bruce Walker MD Work Phone: [facility] 09-19-2024 08:19-0500 Body mass index (BMI) [Ratio] 26.54 kg/m2 Bruce Walker MD Work Phone: [facility] 09-19-2024 08:19-0500 Body weight 83.92 kg Bruce Walker MD Work Phone: [facility] 09-19-2024 08:19-0500 SaO2% (BldA) [Mass fraction] 97 % Bruce Walker MD Work Phone: [facility] 06-28-2024 08:17-0400 Body height 177.8 cm Marlene Oliveira MD Work Phone: [facility] 06-28-2024 08:17-0400 Body mass index (BMI) [Ratio] 27.84 kg/m2 Marlene Oliveira MD Work Phone: [facility] 06-28-2024 08:17-0400 Body weight 88 kg Marlene Oliveira MD Work Phone: [facility] 06-28-2024 08:17-0400 Diastolic blood pressure 66 mm[Hg] Marlene Oliveira MD Work Phone: [facility] 06-28-2024 08:17-0400 Heart rate 58 /min Marlene Oliveira MD Work Phone: [facility] 06-28-2024 08:17-0400 SaO2% (BldA) [Mass fraction] 97 % Marlene Oliveira MD Work Phone: [facility] 06-28-2024 08:17-0400 Systolic blood pressure 133 mm[Hg] Marlene Oliveira MD Work Phone: [facility] 05-22-2024 15:25-0400 Body mass index (BMI) [Ratio] 28.77 kg/m2 Marsha Queener PA-C Work Phone: [facility] 05-22-2024 15:25-0400 Body weight 85.82 kg Marsha Queener PA-C Work Phone: [facility] 05-22-2024 15:25-0400 Diastolic blood pressure 80 mm[Hg] Marsha Queener PA-C Work Phone: [facility] 05-22-2024 15:25-0400 Heart rate 56 /min Marsha Queener PA-C Work Phone: [facility] 05-22-2024 15:25-0400 Respiratory rate 16 /min Marsha Queener PA-C Work Phone: [facility] 05-22-2024 15:25-0400 SaO2% (BldA) [Mass fraction] 97 % Marsha Queener PA-C Work Phone: [facility] 05-22-2024 15:25-0400 Systolic blood pressure 149 mm[Hg] Marsha Queener PA-C Work Phone: [facility] 05-20-2024 12:49-0400 Diastolic blood pressure 76 mm[Hg] Ang Vickers MD Work Phone: [facility] 05-20-2024 12:49-0400 Heart rate 72 /min Ang Vickers MD Work Phone: [facility] 05-20-2024 12:49-0400 Systolic blood pressure 151 mm[Hg] Ang Vickers MD Work Phone: [facility] 05-20-2024 12:38-0400 Body mass index (BMI) [Ratio] 28.69 kg/m2 Ang Vickers MD Work Phone: [facility] 05-20-2024 12:38-0400 Body temperature 96.8 [degF] Ang Vickers MD Work Phone: [facility] 05-20-2024 12:38-0400 Body weight 85.6 kg Ang Vickers MD Work Phone: [facility] 05-20-2024 12:38-0400 Respiratory rate 12 /min Ang Vickers MD Work Phone: [facility] 01-26-2024 13:07-0400 Body mass index (BMI) [Ratio] 28.89 kg/m2 Marsha Queener PA-C Work Phone: [facility] 01-26-2024 13:07-0400 Body weight 86.18 kg Marsha Queener PA-C Work Phone: [facility] 01-26-2024 13:07-0400 Diastolic blood pressure 91 mm[Hg] Marsha Queener PA-C Work Phone: [facility] 01-26-2024 13:07-0400 Heart rate 87 /min Marsha Queener PA-C Work Phone: [facility] 01-26-2024 13:07-0400 Respiratory rate 16 /min Marsha Queener PA-C Work Phone: [facility] 01-26-2024 13:07-0400 SaO2% (BldA) [Mass fraction] 100 % Marsha Queener PA-C Work Phone: [facility] 01-26-2024 13:07-0400 Systolic blood pressure 159 mm[Hg] Marsha Queener PA-C Work Phone: [facility] 01-23-2024 10:22-0400 Body mass index (BMI) [Ratio] 28.89 kg/m2 Ang Vickers MD Work Phone: [facility] 01-23-2024 10:22-0400 Body weight 86.18 kg Ang Vickers MD Work Phone: [facility] 01-23-2024 10:22-0400 Diastolic blood pressure 82 mm[Hg] Ang Vickers MD Work Phone: [facility] 01-23-2024 10:22-0400 Heart rate 64 /min Ang Vickers MD Work Phone: [facility] 01-23-2024 10:22-0400 Respiratory rate 16 /min Ang Vickers MD Work Phone: [facility] 01-23-2024 10:22-0400 Systolic blood pressure 148 mm[Hg] Ang Vickers MD Work Phone: [facility] 12-05-2023 07:07-0400 Respiratory rate 16 /min Marsha Beaverer PA-C Work Phone: [facility] 12-05-2023 07:07-0400 SaO2% (BldA) [Mass fraction] 97 % Marsha Beaverer PA-C Work Phone: [facility] 12-05-2023 07:03-0400 Body weight 88.36 kg Marsha Arias PA-C Work Phone: [facility] 09-26-2023 14:19-0500 Diastolic blood pressure 77 mm[Hg] Dr. Ang Vickers Work Phone: [facility] 09-26-2023 14:19-0500 Heart rate 70 /min Dr. Ang Vickers Work Phone: [facility] 09-26-2023 14:19-0500 Respiratory rate 16 /min Dr. Ang Vickers Work Phone: [facility] 09-26-2023 14:19-0500 Systolic blood pressure 150 mm[Hg] Dr. Ang Vickers Work Phone: [facility] 09-26-2023 13:55-0500 Body height 177.[address] Ang Vickers Work Phone: [facility] 09-26-2023 13:55-0500 Body mass index (BMI) [Ratio] 27.8 kg/m2 Dr. Ang Vickers Work Phone: [facility] 09-26-2023 13:55-0500 Body weight 87.[address] Ang Vickers Work Phone: [facility] 06-12-2023 18:47-0400 Diastolic blood pressure 73 mm[Hg] Ang Vickers MD Work Phone: [facility] 06-12-2023 18:47-0400 Heart rate 74 /min Ang Vickers MD Work Phone: [facility] 06-12-2023 18:47-0400 Systolic blood pressure 156 mm[Hg] Ang Vickers MD Work Phone: [facility] 06-12-2023 18:44-0400 Body temperature 97.5 [degF] Ang Vickers MD Work Phone: [facility] 06-12-2023 18:44-0400 Body weight 89.13 kg Ang Vickers MD Work Phone: [facility] 06-12-2023 18:44-0400 Respiratory rate 16 /min Ang Vickers MD Work Phone: [facility] 06-12-2023 18:44-0400 SaO2% (BldA) [Mass fraction] 97 % Ang Vickers MD Work Phone: [facility] 10-26-2022 13:06-0500 Diastolic blood pressure 72 mm[Hg] Ang Vickers MD Work Phone: [facility] 10-26-2022 13:06-0500 Heart rate 67 /min Ang Vickers MD Work Phone: [facility] 10-26-2022 13:06-0500 Systolic blood pressure 128 mm[Hg] Ang Vickers MD Work Phone: [facility] 03-01-2023 12:57-0500 Body temperature 97.11 [degF] Ang Vickers MD Work Phone: [facility] 10-26-2022 12:57-0500 Body weight 89.81 kg Ang Vickers MD Work Phone: [facility] 09-28-2022 08:43-0500 Diastolic blood pressure 74 mm[Hg] Ang Vickers MD Work Phone: [facility] 09-28-2022 08:43-0500 Heart rate 65 /min Ang Vickers MD Work Phone: [facility] 09-28-2022 08:43-0500 Systolic blood pressure 149 mm[Hg] Ang Vickers MD Work Phone: [facility] 09-28-2022 08:31-0500 Body height 175.3 cm Ang Vickers MD Work Phone: [facility] 09-28-2022 08:31-0500 Body temperature 96.8 [degF] Ang Vickers MD Work Phone: [facility] 09-28-2022 08:31-0500 Body weight 91.17 kg Ang Vickers MD Work Phone: [facility] 09-28-2022 08:31-0500 Respiratory rate 16 /min Ang Vickers MD Work Phone: [facility] 05-09-2022 14:11-0400 Body weight 89.81 kg Mehrdad Victor MD Work Phone: [facility] 05-09-2022 14:11-0400 Diastolic blood pressure 72 mm[Hg] Mehrdad Victor MD Work Phone: [facility] 05-09-2022 14:11-0400 Heart rate 76 /min Mehrdad Victor MD Work Phone: [facility] 05-09-2022 14:11-0400 Systolic blood pressure 132 mm[Hg] Mehrdad Victor MD Work Phone: [facility] 03-28-2022 09:43-0400 Diastolic blood pressure 70 mm[Hg] Daniela Older [employer] Work Phone: [facility] 03-28-2022 09:43-0400 Systolic blood pressure 150 mm[Hg] Daniela Older [employer] Work Phone: [facility] 03-28-2022 08:39-0400 Body weight 89.81 kg Daniela Older [employer] Work Phone: [facility] 03-28-2022 08:39-0400 Heart rate 90 /min Daniela Older [employer] Work Phone: [facility] 03-28-2022 08:39-0400 Respiratory rate 14 /min Daniela Older [employer] Work Phone: [facility] 02-11-2022 16:35-0400 Body height 176.5 cm Ang Vickers MD Work Phone: [facility] 02-11-2022 16:35-0400 Body temperature 98.01 [degF] Ang Vickers MD Work Phone: [facility] 02-11-2022 16:35-0400 Body weight 91.17 kg Ang Vickers MD Work Phone: [facility] 02-11-2022 16:35-0400 Diastolic blood pressure 60 mm[Hg] Ang Vickers MD Work Phone: [facility] 02-11-2022 16:35-0400 Heart rate 95 /min Ang Vickers MD Work Phone: [facility] 02-11-2022 16:35-0400 Respiratory rate 12 /min Ang Vickers MD Work Phone: [facility] 02-11-2022 16:35-0400 SaO2% (BldA) [Mass fraction] 95 % Ang Vickers MD Work Phone: [facility] 02-11-2022 16:35-0400 Systolic blood pressure 142 mm[Hg] Ang Vickers MD Work Phone: [facility] 02-08-2022 11:20-0400 Body height 177.8 cm [facility] Work Phone: 02-08-2022 11:20-0400 Body mass index (BMI) [Ratio] 29.4 kg/m2 [facility] Work Phone: 02-08-2022 11:20-0400 Body temperature 98.4 [degF] [facility] Work Phone: 02-08-2022 11:20-0400 Body weight 92.98 kg [facility] Work Phone: 02-08-2022 11:20-0400 Diastolic blood pressure 113 mm[Hg] [facility] Work Phone: 02-08-2022 11:20-0400 Heart rate 87 /min [facility] Work Phone: 02-08-2022 11:20-0400 Respiratory rate 18 /min [facility] Work Phone: 02-08-2022 11:20-0400 SaO2% (BldA) [Mass fraction] 98 % [facility] Work Phone: 02-08-2022 11:20-0400 Systolic blood pressure 151 mm[Hg] [facility] Work Phone: 02-07-2022 09:22-0400 Body temperature 97.7 [degF] Lisa Brantley [employer] Work Phone: [facility] 02-07-2022 09:22-0400 Body weight 93.35 kg Lisa Brantley [employer] Work Phone: [facility] 02-07-2022 09:22-0400 Diastolic blood pressure 90 mm[Hg] Lisa Brantley [employer] Work Phone: [facility] 02-07-2022 09:22-0400 Heart rate 65 /min Lisa Brantley [employer] Work Phone: [facility] 02-07-2022 09:22-0400 Respiratory rate 26 /min Lisa Paynegs [employer] Work Phone: [facility] 02-07-2022 09:22-0400 SaO2% (BldA) [Mass fraction] 97 % Lisa Paynegs [employer] Work Phone: [facility] 02-07-2022 09:22-0400 Systolic blood pressure 158 mm[Hg] Lisa Karon [employer] Work Phone: [facility] Encounters Encounter Date Encounter Type Care Provider Facility Start: 01-09-2025 End: 01-09-2025 Office outpatient visit 10 minutes Ang Vickers MD Work Phone: [facility] [place] Comment on above: Rash (Primary Dx) Start: 01-09-2025 End: 01-09-2025 ambulatory Ang Vickers MD Work Phone: [facility] [place] Comment on above: Rash Start: 11-22-2024 End: 11-22-2024 ambulatory ANG VICKERS Facility:[facility] Start: 11-22-2024 End: 11-22-2024 Patient encounter procedure Ang Vickers MD Work Phone: [facility] [place] Comment on above: Medicare annual well ness visit, subsequent (Primary Dx); Longstanding persistent atrial fibrillation (HCC); Essential hypertension; Atherosclerosis of [place] coronary artery of [place] heart without angina pectoris; Abnormal gait; Impaired fasting glucose; Pure Hypercholesterolemia Start: 10-10-2024 End: 12-10-2024 Follow-up encounter Ang Vickers MD Work Phone: [facility] [place] Start: 10-09-2024 End: 10-09-2024 ambulatory ANG VICKERS Facility:[facility] Start: 10-09-2024 End: 10-09-2024 E-mail encounter from caregiver Ang Vickers MD Work Phone: [facility] [place] Start: 10-09-2024 End: 10-09-2024 Follow-up encounter Ang Vickers MD Work Phone: [facility] [place] Comment on above: Lab follow up. Start: 10-03-2024 End: 10-03-2024 ambulatory Ang Vickers Facility:[facility] Start: 09-19-2024 End: 09-19-2024 ambulatory ANG MCNAIRQUEZ Facility:[facility] Start: 09-19-2024 End: 09-19-2024 ambulatory ANG MCNAIRQUEZ Facility:[facility] Start: 09-19-2024 End: 09-19-2024 Office outpatient visit 40 minutes Bruce Walker MD Work Phone: [facility] Comment on above: Multifactorial gait disorder (Primary Dx); Abnormal gait; Spinal stenosis of lumbar region, unspecified whether neurogenic claudication present; Neuropathy; Hypertension, unspecified type; Screening for diabetes mellitus (DM) Start: 08-01-2024 End: 08-01-2024 Telephone encounter Neurology Provider Neurology Comment on above: Received Outside [facility] (External referral to Neurological [place]/) Start: 07-08-2024 End: 07-09-2024 Telephone encounter Marsha Arias PA-C Work Phone: Neurology Comment on above: requesting a disk (M [place] disk being requested) Start: 06-28-2024 End: 06-28-2024 ambulatory SUSANA RANCHO Facility:[facility] Start: 06-28-2024 End: 06-28-2024 Patient encounter procedure Marlene Oliveira MD Work Phone: Neurology Comment on above: Spinal stenosis of l umbar region, unspecified whether neurogenic claudication present (Primary Dx); Abnormality of gait; Parkinsonism, unspecified Parkinsonism type (HCC) Start: 05-22-2024 End: 05-22-2024 Patient encounter procedure Marsha Arias PA-C Work Phone: Neurology Comment on above: Abnormality of gait (Primary Dx); Orthostatic dizziness; Abnormal gait; Neuropathy; Spinal stenosis of lumbar region without neurogenic claudication Start: 05-22-2024 End: 05-22-2024 ambulatory ANG Crowder RANCHO Facility:[facility] Start: 05-20-2024 End: 05-20-2024 ambulatory ANG Crowder VICKERS Facility:[facility] Start: 05-20-2024 End: 05-20-2024 Office outpatient visit 25 minutes Ang Vickers MD Work Phone: [facility] [place] Comment on above: At risk for falling (Primary Dx); Need for influenza vaccination; Unsteadiness on feet; Longstanding persistent atrial fibrillation (HCC); Essential hypertension; Atherosclerosis of [place] coronary artery of [place] heart without angina pectoris; Screening for depression; Encounter for screening examination for other mental health and behavioral disorders Start: 04-12-2024 End: 04-12-2024 ambulatory Ang Vickers Facility:[facility] Start: 04-04-2024 End: 04-04-2024 ambulatory Ang Vickers Facility:[facility] Start: 04-03-2024 End: 04-04-2024 ambulatory Dominick Campos [facility] Comment on above: Unsteadiness on feet (Primary Dx); Orthostatic dizziness; Spinal stenosis of lumbar region without neurogenic claudication; Cervical stenosis of spinal canal Start: 03-29-2024 End: 03-29-2024 ambulatory Sonali Hoffman PTA Work Phone: [facility] Comment on above: Unsteadiness on feet (Primary Dx); Orthostatic dizziness; Spinal stenosis of lumbar region without neurogenic claudication; Cervical stenosis of spinal canal Start: 03-20-2024 End: 03-20-2024 ambulatory Dominick Campos [facility] Comment on above: Unsteadiness on feet (Primary Dx); Orthostatic dizziness; Spinal stenosis of lumbar region without neurogenic claudication; Cervical stenosis of spinal canal Start: 03-13-2024 End: 03-13-2024 ambulatory Dominick Campos [facility] Comment on above: Unsteadiness on feet (Primary Dx); Orthostatic dizziness; Spinal stenosis of lumbar region without neurogenic claudication; Cervical stenosis of spinal canal Start: 03-06-2024 End: 03-07-2024 ambulatory Dominick Campos [facility] Comment on above: Unsteadiness on feet (Primary Dx); Orthostatic dizziness; Spinal stenosis of lumbar region without neurogenic claudication; Cervical stenosis of spinal canal Start: 02-07-2024 End: 02-07-2024 ambulatory Dominick Arnold [facility] Comment on above: Spinal stenosis of l umbar region, unspecified whether neurogenic claudication present (Primary Dx); Cervical stenosis of spinal canal; Unsteadiness on feet; Orthostatic dizziness Start: 01-26-2024 End: 01-26-2024 ambulatory ANG VICKERS Facility:[facility] Start: 01-26-2024 End: 01-26-2024 Patient encounter procedure Marsha Arias PA-C Work Phone: Neurology Comment on above: Unsteadiness on feet (Primary Dx); Spinal stenosis of lumbar region, unspecified whether neurogenic claudication present; Cervical stenosis of spinal canal; Orthostatic dizziness Start: 01-25-2024 Telephone encounter Marsha sánchez PA-C Work Phone: Neurology Comment on above: Results Start: 01-24-2024 End: 01-24-2024 ambulatory ANG VICKERS Facility:[facility] Start: 01-24-2024 End: 01-24-2024 Subsequent hospital visit by physician [employer] [employer] [facility] (I-Stat/1.5t) Work Phone: Radiology Comment on above: Spinal stenosis of l umbar region, unspecified whether neurogenic claudication present [M48.061] Start: 01-23-2024 End: 01-23-2024 ambulatory ANG VICKERS Facility:[facility] Start: 01-23-2024 End: 01-23-2024 Patient encounter procedure Ang Vickers MD Work Phone: [facility] [place] Comment on above: Abnormal gait (Prima ry Dx); Orthostatic dizziness; Essential hypertension Start: 01-19-2024 Telephone encounter Marsha sánchez PA-C Work Phone: Neurology Comment on above: Results Start: 01-19-2024 End: 01-19-2024 ambulatory ANG VICKERS Neurology [facility] Comment on above: Procedure Start: 01-19-2024 End: 01-19-2024 Patient encounter procedure Emg 1 Neur [facility] Guy (Max Weight 400) Neurology [facility] Start: 12-18-2023 End: 12-18-2023 Subsequent hospital visit by physician [employer] [facility] (I-Stat/1.5t) Work Phone: Radiology Comment on above: Orthostatic dizzines s [R42] Start: 12-05-2023 Telephone encounter Parul Rodriguez MD Work Phone: Neurology Comment on above: EMG BLOOD THINNER PO LICY Start: 12-05-2023 End: 12-05-2023 Patient encounter procedure Marsha Arias PA-C Work Phone: Neurology Comment on above: Neuropathy (Primary Dx); Orthostatic dizziness; Abnormal gait Start: 11-28-2023 Telephone encounter Ang jain MD Work Phone: [facility] [place] Comment on above: Results Start: 11-21-2023 Non-patient / Non-visit Dr. Yola Vickers Work Phone: [facility] Start: 11-21-2023 End: 11-21-[address] Ang Vickers Work Phone: [facility] Work Phone: Start: 11-21-2023 End: 11-21-[address] [facility] Start: 11-21-2023 End: 11-21-2023 ambulatory Aguilar Carrion CRIMINALIST Facility:[facility] Start: 11-16-2023 ambulatory Aguilar Carrion CRIMINALIST Facility :[facility] Start: 11-16-2023 Non-patient / Non-visit Dr. Yola Vickers Work Phone: [facility] Start: 11-16-2023 End: 11-16-[address] Ang Vickers Work Phone: [facility] Work Phone: Start: 11-16-2023 End: 11-16-[address] Ang Vickers Work Phone: [facility] Work Phone: Start: 11-16-2023 End: 11-16-2023 ambulatory Aguilar Carrion NP Facility:[facility] Start: 10-04-2023 End: 10-04-[address] Ang Vickers Work Phone: [facility] Work Phone: Start: 10-04-2023 End: 10-04-[address] Ang Vickers Work Phone: [facility] Work Phone: Start: 10-03-2023 Non-patient / Non-visit Dr. Yola Vickers Work Phone: [facility] Work Phone: Start: 10-03-[address] Ang Vickers Work Phone: [facility] Work Phone: Start: 09-26-2023 End: 09-26-[address] Ang Vickers Work Phone: [facility] Work Phone: Start: 06-12-2023 End: 06-12-2023 Nurse Triage Ang Vickers MD Work Phone: [facility] [place] Comment on above: Orders; Diarrhea Diarrhea, unspecifie d type (Primary Dx); Essential hypertension Start: 10-26-2022 End: 10-26-2022 Patient encounter procedure Ang Vickers MD Work Phone: [facility] [place] Comment on above: Impaired fasting glu cose (Primary Dx); Essential hypertension; Hypomagnesemia; Pure hypercholesterolemia Start: 09-28-2022 End: 09-28-2022 Patient encounter procedure Ang Vickers MD Work Phone: [facility] [place] Comment on above: Medicare annual well ness visit, subsequent (Primary Dx); Essential hypertension; Longstanding persistent atrial fibrillation (HCC); Atherosclerosis of [place] coronary artery of [place] heart without angina pectoris; Hypomagnesemia; Impaired fasting glucose; Hypercalcemia; Pure hypercholesterolemia; Need for COVID-19 vaccine Start: 05-31-2022 End: 05-31-2022 Subsequent hospital visit by physician [facility] Work Phone: Radiology Comment on above: Testicular swelling [N50.89] Start: 05-31-2022 End: 05-31-2022 ambulatory Lisa Moss'Eran PT [facility] Comment on above: Vertigo (Primary Dx) Start: 05-10-2022 Telephone encounter Mehrdad Victor MD Work Phone: [facility] [place] Comment on above: Results Start: 05-09-2022 End: 05-09-2022 Patient encounter procedure Mehrdad Victor MD Work Phone: [facility] [place] Comment on above: Lightheaded (Primary Dx); Testicular swelling; Vertigo Start: 03-28-2022 End: 03-28-2022 Patient encounter procedure Daniela Serena [employer] Work Phone: [facility] [place] Comment on above: Essential hypertensi on (Primary Dx); Longstanding persistent atrial fibrillation (HCC); Impaired fasting glucose; Anemia, unspecified type; Obstructive sleep apnea Start: 02-18-2022 End: 02-18-2022 Patient encounter procedure Ang Vickers MD Work Phone: [facility] [place] Comment on above: Abrasion of left low er leg with infection, subsequent encounter (Primary Dx); Essential hypertension; Impaired fasting glucose; Hypomagnesemia; Anemia, unspecified type Start: 02-11-2022 End: 02-11-2022 Office outpatient visit 25 minutes Ang Vickers MD Work Phone: [facility] [place] Comment on above: Abrasion of left low er leg with infection, subsequent encounter (Primary Dx); Cellulitis of left lower extremity; Essential hypertension Start: 02-08-2022 End: 02-08-2022 Emergency department patient visit [facility] Start: 02-08-2022 End: 02-08-2022 Patient encounter procedure Lisa Brantley [employer] Work Phone: [facility] Comment on above: Cellulitis of left l eg (Primary Dx); Failure of outpatient treatment Start: 02-07-2022 End: 02-07-2022 Subsequent hospital visit by physician Preeti [facility] [place] Work Phone: Radiology Comment on above: Cellulitis of left l eg [L03.116] Start: 02-07-2022 End: 02-07-2022 Patient encounter procedure Lisa Brantley [employer] Work Phone: [facility] Comment on above: Cellulitis of left l eg (Primary Dx); Left leg pain; Fall on same level from slipping, tripping or stumbling, initial encounter; Encounter for immunization; Wound of left lower extremity, initial encounter Procedures Date Procedure Procedure Detail Performing Clinician Start: 05-20-2024 Adult depression scr eening assessment Ang Vickers MD Work Phone: Start: 01-24-2024 Mri spinal canal cer vical w/o contrast matrl Marsha Arias PA-C Work Phone: Start: 01-19-2024 Nerve conduction mariluz dies 5-6 studies Marsha Arias PA-C Work Phone: Start: 12-18-2023 Mri brain brain stem w/o contrast material Marsha Arias PA-C Work Phone: Start: 11-16-2023 Cardiovascular stres s test using pharmacologic stress agent Dr. Ang Vickers Work Phone: Start: 09-28-2022 [employer] COVI D-19 BIVALENT BOOSTER VACCINE, AGE 12+ YR Ang Vickers MD Work Phone: Start: 05-31-2022 Dup-scan artl heike abdl/pel/scrot&/rpr orgn com Mehrdad Victor MD Work Phone: Start: 05-31-2022 Us scrotum & contents W tano Victor MD Work Phone: Start: 02-07-2022 Radiologic examinati on tibia & fibula 2 views Lisa Brantley APRN.[employer] Work Phone: Plan of Treatment Date Care Activity Detail Author Start: 02-22-2033 Urine microalbumin profile DTaP,Tdap,Td Vaccine (4 - Td or Tdap) [facility] Start: 02-08-2032 Urine microalbumin profile [facility] Start: 09-19-2027 Diabetes Screening Diabetes Screening [facility] Start: 05-04-2026 Diabetes Screening Diabetes Screening [facility] Start: 09-30-2025 DIABETES SCREEN DIABETES SCREEN [facility] Start: 09-09-2025 Hepatitis B surface antibody level LDL Cholesterol [facility] Start: 06-30-2025 End: 06-30-2025 Patient encounter procedure 06/30/2025 10:30 AM EST Office Visit Neurology [address] [place] [id number] Marlene Oliveira MD [address] [place] [address] 1y follow up Neurology Comment on above: 1y follow up Start: 05-27-2025 End: 05-27-2025 Patient encounter procedure 05/27/2025 10:00 AM EDT Office Visit [facility] [place] [address] [place] [address] Agn Vickers MD [address] [place], [place] [id number] 6 month follow up [facility] [place] Comment on above: 6 month follow up Start: 05-20-2025 Anxiety Screening Anxiety Screening [facility] Start: 05-20-2025 Covid-19 Vaccine ( season) Covid-19 Vaccine () [facility] Comment on above: Postponed from 04/28/2024 (Declined at t his time) Start: 05-20-2025 Depression Screening Depression Screening [facility] Start: 05-17-2025 DIABETES SCREEN DIABETES SCREEN [facility] Start: 05-09-2025 DIABETES SCREEN DIABETES SCREEN [facility] Start: 11-22-2024 End: 11-22-2024 Patient encounter procedure 11/22/2024 2:20 PM EDT Office Visit [facility] [place] [address] [place] [address] Ang Vickers MD [address] [place] [address] Annual Medicare Wellness w/6 month follow-up Internal [facility] Comment on above: Annual Medicare Wellness w/6 month follo w-up Start: 11-21-2024 Covid-19 Vaccine () Covid-19 Vaccine () [facility] Comment on above: Postponed from 04/28/2023 (Declined at t his time) Start: 11-21-2024 RSV Vaccine (1 - 1-dose 60+ series) RSV Vaccine (1 - 1-dose 60+ series) [facility] Comment on above: Postponed from 1997 (Declined at t his time) Start: 11-21-2024 RSV Vaccine (1 - 1-dose 75+ series) RSV Vaccine (1 - 1-dose 75+ series) [facility] Comment on above: Postponed from 2012 (Declined at t his time) Start: 10-09-2024 End: 01-08-2025 Urinalysis complete panel - Urine [facility] Work Phone: Comment on above: Expected: 10/09/2024, Expires: Start: 09-19-2024 End: 12-19-2024 JONATHON BY IFA WITH REFLEX [facility] Work Phone: Comment on above: Expected: 09/19/2024, Expires: Start: 09-19-2024 End: 12-19-2024 Cobalamin (Vitamin B12) [Mass/volume] in Serum or Plasma [facility] Comment on above: Expected: 09/19/2024, Expires: Start: 09-19-2024 End: 12-19-2024 Comprehensive metabolic 2000 panel - Serum or Plasma [facility] Comment on above: Expected: 09/19/2024, Expires: Start: 09-19-2024 End: 12-19-2024 COPPER BLOOD [facility] Comment on above: Expected: 09/19/2024, Expires: Start: 09-19-2024 End: 12-19-2024 Folate [Mass/volume] in Serum or Plasma [facility] Comment on above: Expected: 09/19/2024, Expires: Start: 09-19-2024 End: 12-19-2024 Methylmalonate [Moles/volume] in Serum or Plasma [facility] Comment on above: Expected: 09/19/2024, Expires: Start: 09-19-2024 End: 12-19-2024 PROTEIN ELECT RND UR W/INTERP [facility] Comment on above: Expected: 09/19/2024, Expires: Start: 09-19-2024 End: 12-19-2024 Pyridoxine [Mass/volume] in Serum or Plasma [facility] Comment on above: Expected: 09/19/2024, Expires: Start: 09-19-2024 End: 12-19-2024 Thyrotropin [Units/volume] in Serum or Plasma [facility] Comment on above: Expected: 09/19/2024, Expires: Start: 09-19-2024 End: 12-19-2024 Zinc [Mass/volume] in Serum or Plasma [facility] Comment on above: Expected: 09/19/2024, Expires: Start: 09-17-2024 DIABETES SCREEN DIABETES SCREEN [facility] Start: 09-11-2024 End: 09-11-2024 Patient encounter procedure 09/11/2024 11:30 AM EST Office Visit Neurology [address], [place] [id number] Marsha Arias PA-C [address] [place], [place] [phone] 3 month follow up Neurology Comment on above: 3 month follow up Start: 08-30-2024 Hepatitis B surface antibody level LDL Cholesterol [facility] Start: 08-28-2024 Advance Directive Discussion Advance Directive Discussion [facility] Start: 07-24-2024 End: 07-24-2024 Patient encounter procedure 07/24/2024 4:00 PM EST Office Visit Neurology [address] [facility] [place] [id number] Marlene Oliveira MD [address] [facility] [place] [place] [address] Abnormality of gait [R26.9] Neurology Comment on above: Abnormality of gait [R26.9] Start: 05-22-2024 End: 05-22-2024 Patient encounter procedure 05/22/2024 3:30 PM EDT Office Visit Neurology [address] [facility] [place] [address] Marsha Arias PA-C [address] [facility] [place] [place] [address] 3m follow up Neurology Comment on above: 3m follow up Start: 05-20-2024 End: 05-20-2024 Patient encounter procedure 05/20/2024 12:40 PM EDT Office Visit [facility] [place] [address] [facility] [place] [address] Ang Vickers MD [address] [place] [address] 4 mo follow up [facility] [place] Comment on above: 4 mo follow up Start: 04-28-2024 Influenza vaccination Influenza Vaccine (#1) [facility] Start: 04-24-2024 End: 04-24-2024 ambulatory 04/24/2024 8:15 AM EDT OT/PT/Speech Visit [facility] [address] [place] [address] Dominick Campos, PT M48.061 (ICD-10-CM) - Spinal stenosis of lumbar region, unspecified whether neurogenic claudication present [facility] Comment on above: M48.061 (ICD-10-CM) - Spinal stenosis of lumbar region, unspecified whether neurogenic claudication present Start: 04-17-2024 End: 04-17-2024 ambulatory 04/17/2024 8:15 AM EDT OT/PT/Speech Visit [facility] [address] [place] [address] Dominick Campos, PT M48.061 (ICD-10-CM) - Spinal stenosis of lumbar region, unspecified whether neurogenic claudication present [facility] Comment on above: M48.061 (ICD-10-CM) - Spinal stenosis of lumbar region, unspecified whether neurogenic claudication present Start: 04-10-2024 End: 04-10-2024 ambulatory 04/10/2024 8:15 AM EDT OT/PT/Speech Visit [facility] [address] [place] [address] Dominick Campos, PT M48.061 (ICD-10-CM) - Spinal stenosis of lumbar region, unspecified whether neurogenic claudication present [facility] Comment on above: M48.061 (ICD-10-CM) - Spinal stenosis of lumbar region, unspecified whether neurogenic claudication present Start: 04-03-2024 End: 04-03-2024 ambulatory 04/03/2024 8:15 AM EDT OT/PT/Speech Visit [facility] [address] [place] [address] Dominick Campos, PT M48.061 (ICD-10-CM) - Spinal stenosis of lumbar region, unspecified whether neurogenic claudication present [facility] Comment on above: M48.061 (ICD-10-CM) - Spinal stenosis of lumbar region, unspecified whether neurogenic claudication present Start: 03-29-2024 End: 03-29-2024 ambulatory 03/29/2024 8:00 AM EDT OT/PT/Speech Visit [facility] [address] [place] [address] Sonali Hoffman, ELECTRONICS TECHNOLOGY DEPARTMENT CHAIR [address] [place] [address] M48.061 (ICD-10-CM) - Spinal stenosis of lumbar region, unspecified whether neurogenic claudication present [facility] Comment on above: M48.061 (ICD-10-CM) - Spinal stenosis of lumbar region, unspecified whether neurogenic claudication present Start: 03-27-2024 End: 03-27-2024 ambulatory 03/27/2024 8:15 AM EDT OT/PT/Speech Visit [facility] [address] [place] [address] Dominick Campos, PT M48.061 (ICD-10-CM) - Spinal stenosis of lumbar region, unspecified whether neurogenic claudication present [facility] Comment on above: M48.061 (ICD-10-CM) - Spinal stenosis of lumbar region, unspecified whether neurogenic claudication present Start: 03-20-2024 End: 03-20-2024 ambulatory 03/20/2024 8:15 AM EDT OT/PT/Speech Visit [facility] [address] [place] [address] Dominick Campos, PT M48.061 (ICD-10-CM) - Spinal stenosis of lumbar region, unspecified whether neurogenic claudication present [facility] Comment on above: M48.061 (ICD-10-CM) - Spinal stenosis of lumbar region, unspecified whether neurogenic claudication present Start: 03-13-2024 End: 03-13-2024 ambulatory 03/13/2024 8:15 AM EDT OT/PT/Speech Visit [facility] [address] [place] [address] Dominick Campos, PT M48.061 (ICD-10-CM) - Spinal stenosis of lumbar region, unspecified whether neurogenic claudication present [facility] Comment on above: M48.061 (ICD-10-CM) - Spinal stenosis of lumbar region, unspecified whether neurogenic claudication present Start: 03-06-2024 End: 03-06-2024 ambulatory 03/06/2024 9:45 AM EDT OT/PT/Speech Visit [facility] [address] [place] [address] Dominick Campos, PT M48.061 (ICD-10-CM) - Spinal stenosis of lumbar region, unspecified whether neurogenic claudication present [facility] Comment on above: M48.061 (ICD-10-CM) - Spinal stenosis of lumbar region, unspecified whether neurogenic claudication present Start: 02-07-2024 End: 02-07-2024 ambulatory 02/07/2024 9:00 AM EDT OT/PT/Speech Visit [facility] [address] [place] [address] Dominick Campos, PT Spinal stenosis of lumbar region, unspecified whether neurogenic claudication present [M48.061]; Cervical stenosis of spinal canal [M48.02]; Unsteadiness on feet [R26.81]; Orthostatic dizziness [R42] [facility] Comment on above: Spinal stenosis of lumbar region, unspec ified whether neurogenic claudication present [M48.061]; Cervical stenosis of spinal canal [M48.02]; Unsteadiness on feet [R26.81]; Orthostatic dizziness [R42] Start: 01-26-2024 End: 01-26-2024 Patient encounter procedure 01/26/2024 1:00 PM EDT Office Visit Neurology [address] [place] [address] [place] [id number] Marsha Arias PA-C [address] [place], [place] [phone] Folow up MRI results Neurology Comment on above: Folow up MRI results Start: 01-24-2024 End: 01-24-2024 Patient encounter procedure 01/24/2024 1:40 PM EDT Appointment Radiology [address] [place], [place] [phone] Spinal stenosis of cervical region [M48.02] Radiology Comment on above: Spinal stenosis of cervical region [M48. 02] Start: 01-24-2024 Subsequent hospital visit by physician 01/24/2024 1:40 PM EDT Hospital Encounter Radiology [address] [place], [place] [phone] Spinal stenosis of lumbar region, unspecified whether neurogenic claudication present [M48.061] Radiology Comment on above: Spinal stenosis of lumbar region, unspec ified whether neurogenic claudication present [M48.061] Start: 01-23-2024 End: 01-23-2024 Patient encounter procedure 01/23/2024 10:20 AM EDT Office Visit Internal Medicine [place] [address] [place] [address] Ang Vickers MD [address] [place] [address] 2 month follow-up [facility] [place] Comment on above: 2 month follow-up Start: 01-19-2024 End: 01-19-2024 ambulatory 01/19/2024 9:25 AM EDT Procedure Neurology [address] [facility] [place] [address] Abnormal gait [R26.9] Neurology Comment on above: Abnormal gait [R26.9] Start: 12-05-2023 End: 03-05-2024 C reactive protein [Mass/volume] in Serum or Plasma [facility] Work Phone: Comment on above: Expected: 12/05/2023, Expires: 4 Start: 12-05-2023 End: 03-05-2024 Cobalamin (Vitamin B12) [Mass/volume] in Serum or Plasma [facility] Work Phone: Comment on above: Expected: 12/05/2023, Expires: 4 Start: 12-05-2023 End: 03-05-2024 Erythrocyte sedimentation rate [facility] Work Phone: Comment on above: Expected: 12/05/2023, Expires: 4 Start: 12-05-2023 End: 03-05-2024 Methylmalonate [Moles/volume] in Serum or Plasma [facility] Work Phone: Comment on above: Expected: 12/05/2023, Expires: 4 Start: 12-05-2023 End: 03-05-2024 PROT ELECT SERUM WITH VINCENZO AND INTERP [facility] Work Phone: Comment on above: Expected: 12/05/2023, Expires: 4 Start: 09-30-2023 Hepatitis B surface antibody level LDL CHOLESTEROL [facility] Start: 08-28-2023 Behavioral Health Screening Behavioral Health Screening [facility] Start: 04-28-2023 End: 06-28-2023 Basic metabolic 2000 panel - Serum or Plasma BASIC METABOLIC PNL Lab Routine Impaired fasting glucose Expected: 04/28/2023, Expires: 06/28/2023 [facility] Work Phone: Comment on above: Expected: 04/28/2023, Expires: 3 Start: 04-28-2023 Covid-19 Vaccine () Covid-19 Vaccine () [facility] Start: 04-28-2023 End: 06-28-2023 Hemoglobin A1c in Blood HGB A1C Lab Routine Impaired fasting glucose Expected: 04/28/2023, Expires: 06/28/2023 [facility] Work Phone: Comment on above: Expected: 04/28/2023, Expires: 3 Start: 04-28-2023 End: 06-28-2023 Magnesium [Mass/volume] in Serum or Plasma MAGNESIUM BLD Lab Routine Hypomagnesemia Expected: 04/28/2023, Expires: 06/28/2023 [facility] Work Phone: Comment on above: Expected: 04/28/2023, Expires: 3 Start: 09-29-2022 End: 11-29-2022 Basic metabolic 2000 panel - Serum or Plasma BASIC METABOLIC PNL Lab Routine Hypercalcemia Expected: 09/29/2022, Expires: 11/29/2022 [facility] Work Phone: Comment on above: Expected: 09/29/2022, Expires: 3 Start: 09-29-2022 End: 11-29-2022 Hemoglobin A1c in Blood HGB A1C Lab Routine Impaired fasting glucose Expected: 09/29/2022, Expires: 11/29/2022 [facility] Work Phone: Comment on above: Expected: 09/29/2022, Expires: 3 Start: 09-29-2022 End: 11-29-2022 Lipid 1996 panel - Serum or Plasma LIPID PANEL BASIC Lab Routine Pure hypercholesterolemia Expected: 09/29/2022, Expires: 11/29/2022 [facility] Work Phone: Comment on above: Expected: 09/29/2022, Expires: 3 Start: 09-29-2022 End: 11-29-2022 Magnesium [Mass/volume] in Serum or Plasma MAGNESIUM BLD Lab Routine Hypomagnesemia Expected: 09/29/2022, Expires: 11/29/2022 [facility] Work Phone: Comment on above: Expected: 09/29/2022, Expires: Start: 09-29-2022 End: 11-29-2022 Parathyrin.intact [Mass/volume] in Serum or Plasma PTH INTACT BLD Lab Routine Hypercalcemia Expected: 09/29/2022, Expires: 11/29/2022 [facility] Work Phone: Comment on above: Expected: 09/29/2022, Expires: 3 Start: 09-17-2022 Hepatitis B surface antibody level LDL CHOLESTEROL [facility] Start: 05-10-2022 End: 05-10-2023 25-hydroxyvitamin D3 [Mass/volume] in Serum or Plasma VITAMIN D 25 HYDROXY Lab Routine Renal insufficiency Hypercalcemia Expected: 05/10/2022, Expires: 05/10/2023 [facility] Work Phone: Comment on above: Expected: 05/10/2022, Expires: 3 Start: 05-10-2022 End: 07-10-2022 Basic metabolic 2000 panel - Serum or Plasma BASIC METABOLIC PNL Lab Routine Renal insufficiency Hypercalcemia Expected: 05/10/2022, Expires: 07/10/2022 [facility] Work Phone: Comment on above: Expected: 05/10/2022, Expires: 2 Start: 05-10-2022 End: 05-10-2023 Calcium.ionized [Moles/volume] in Blood CALCIUM IONIZED BLOOD Lab Routine Renal insufficiency Hypercalcemia Expected: 05/10/2022, Expires: 05/10/2023 [facility] Work Phone: Comment on above: Expected: 05/10/2022, Expires: 3 Start: 05-10-2022 End: 05-10-2023 Parathyrin.intact [Mass/volume] in Serum or Plasma PTH INTACT BLD Lab Routine Renal insufficiency Hypercalcemia Expected: 05/10/2022, Expires: 05/10/2023 [facility] Work Phone: Comment on above: Expected: 05/10/2022, Expires: 3 Start: 05-10-2022 End: 07-10-2022 Urinalysis complete panel - Urine URINALYSIS, WITH MICROSCOPIC Lab Routine Renal insufficiency Hypercalcemia Expected: 05/10/2022, Expires: 07/10/2022 [facility] Work Phone: Comment on above: Expected: 05/10/2022, Expires: 2 Start: 05-09-2022 End: 07-09-2022 Basic metabolic 2000 panel - Serum or Plasma [facility] Work Phone: Comment on above: Expected: 05/09/2022, Expires: 2 Start: 05-09-2022 End: 07-09-2022 CBC W Auto Differential panel - Blood [facility] Work Phone: Comment on above: Expected: 05/09/2022, Expires: 2 Start: 04-28-2022 Influenza vaccination INFLUENZA (#1) [facility] Start: 02-14-2022 COVID-19 VACCINE (5 - Booster for Pfizer series) COVID-19 VACCINE (5 - Booster for Pfizer series) [facility] Start: 02-08-2022 Bacteria identified in Blood by Culture Blood Culture [facility] Work Phone: Start: 02-08-2022 Urine microalbumin profile DTAP,TDAP,TD (1 - Tdap) [facility] Start: 10-02-2021 COVID-19 VACCINE (4 - Booster for Pfizer series) COVID-19 VACCINE (4 - Booster for Pfizer series) [facility] Start: 08-28-2021 ADVANCE DIRECTIVE DISCUSSION ADVANCE DIRECTIVE DISCUSSION [facility] Start: 08-28-2021 DEPRESSION ASSESSMENT DEPRESSION ASSESSMENT [facility] Start: 2012 RSV Vaccine (1 - 1-dose 75+ series) RSV Vaccine (1 - 1-dose 75+ series) [facility] Start: 12-03-1953 Anxiety Screening Anxiety Screening [facility] Start: 12-03-1953 Depression Screening Depression Screening [facility] Cardiac event recording [facility] Clostridioides difficile toxin genes [Presence] in Stool by BLAYNE with probe detection C. DIFFICILE PCR Lab Routine Diarrhea, unspecified type Ordered: 06/12/2023 [facility] Work Phone: Comment on above: Ordered: 06/12/2023 End: 12-04-2024 EMG(NEURO/NI) EMG(NEURO/NI) EMG Routine Abnormal gait 1 Occurrences starting 12/05/2023 until 12/04/2024 [facility] Work Phone: Comment on above: 1 Occurrences starting 12/05/2023 until 12/04/2024 FECAL LACTOFERRIN/LEUKOCYTES FECAL LACTOFERRIN/LEUKOCYTES Lab Routine Diarrhea, unspecified type Ordered: 06/12/2023 [facility] Work Phone: Comment on above: Ordered: 06/12/2023 End: 01-03-2025 MR Brain WO contrast MRI BRAIN WO IVCON Radiology Routine Orthostatic dizziness Abnormal gait 1 Occurrences starting 12/05/2023 until 01/03/2025 [facility] Work Phone: Comment on above: 1 Occurrences starting 12/05/2023 until 01/03/2025 End: 02-17-2025 MR Cervical spine WO contrast MRI CERVICAL SPINE WO IVCON Radiology Routine Spinal stenosis of cervical region Abnormal gait 1 Occurrences starting 01/19/2024 until 02/17/2025 [facility] Comment on above: 1 Occurrences starting 01/19/2024 until 02/17/2025 End: 02-17-2025 MR Lumbar spine WO contrast MRI LUMBAR SPINE WO IVCON Radiology Routine Spinal stenosis of lumbar region, unspecified whether neurogenic claudication present Abnormal gait 1 Occurrences starting 01/19/2024 until 02/17/2025 [facility] Work Phone: Comment on above: 1 Occurrences starting 01/19/2024 until 02/17/2025 Patient Education ED [facility] Work Phone: Patient referral [facility] Work Phone: PT PLAN OF CARE CERTIFICATION PT PLAN OF CARE CERTIFICATION Procedures Routine Vertigo Ordered: 05/31/2022 [facility] Comment on above: Ordered: 05/31/2022 End: 06-08-2023 Us scrotum & contents US SCROTUM AND CONTENTS Radiology Routine Testicular swelling 1 Occurrences starting 05/09/2022 until 06/08/2023 [facility] Work Phone: Comment on above: 1 Occurrences starting 05/09/2022 until 06/08/2023 [facility] Immunizations Immunization Date Immunization Notes Care Provider Shari ye 05-20-2024 influenza, high dose seasonal, preservative-free Ang Vickers MD Work Phone: [facility] 05-24-2023 influenza (HD-IIV4) vaccine, age 65+ yr, high dose, quadrivalent, PF (FLUZONE HIGH-DOSE) Ang Vickers MD Work Phone: [facility] Work Phone: 05-24-2023 influenza virus vacc ine, unspecified formulation Dominick Campos PT [facility] 09-28-2022 COVID-19 booster vaccine, age 12+ yr, bivalent (PFIZER-BIONTInvoiceSharing) Ang Vickers MD Work Phone: [facility] Work Phone: 07-04-2022 influenza (aIIV4) vaccine, age 65+ yr, quadrivalent, PF (FLUAD QUADRIVALENT) Ang Vickers MD Work Phone: [facility] Work Phone: 02-07-2022 tetanus and diphther ia toxoids, adsorbed, preservative free, for adult use (5 Lf of tetanus toxoid and 2 Lf of diphtheria toxoid) Lisapop Brantley [employer]ISHING VESSEL DECKHAND Work Phone: [facility] Work Phone: 02-07-2022 TD(adult) unspecifie d formulation Lisa Brantley [employer]KHAND Work Phone: [facility] Work Phone: 12-20-2021 COVID-19 vaccine (UNSPECIFIED) Daniela Lyons [employer] Work Phone: [facility] 05-26-2021 influenza, high-dose , quadrivalent vaccine (FLUZONE HIGH DOSE QUADRIVALENT) Lisapop Brantley [employer] DECKHAND Work Phone: [facility] 10-13-2020 COVID-19 vaccine, ag e 12+ yr (PFIZER-BIONTECH - PURPLE TOP) Lisapop Brantley [employer].[facility] Work Phone: [facility] Work Phone: 09-22-2020 COVID-19 vaccine, ag e 12+ yr (PFIZER-BIONTECH - PURPLE TOP) Lisapop Brantley [employer].[facility] Work Phone: [facility] Work Phone: 06-26-2020 influenza, high dose seasonal, preservative-free Lisa Brantley [employer]KHAND Work Phone: [facility] Work Phone: 07-01-2019 influenza, high dose seasonal, preservative-free Lisa Brantley [employer] Work Phone: [facility] Work Phone: 07-01-2019 pneumococcal polysaccharide vaccine, 23 valent Lisapop Brantley [employer] Work Phone: [facility] Work Phone: 09-11-2018 zoster vaccine recombinant Lisa Brantley [employer].[facility] Work Phone: [facility] Work Phone: 06-25-2018 zoster vaccine recombinant Lisa Brantley [employer] Work Phone: [facility] 06-12-2018 influenza virus vacc ine, unspecified formulation Lisa Brantley [employer].[facility] Work Phone: [facility] Work Phone: 06-11-2018 Influenza virus vaccine [facility] 06-07-2018 influenza, high dose seasonal, preservative-free Lisa Brantley [employer].[facility] Work Phone: [facility] 05-25-2017 influenza, high dose seasonal, preservative-free Lisa Brantley [employer].[facility] Work Phone: [facility] Work Phone: 05-24-2017 influenza, seasonal, injectable Lisa Brantley [employer] Work Phone: [facility] 07-15-2016 influenza, high dose seasonal, preservative-free Lisa Brantley [employer].[facility] Work Phone: [facility] Work Phone: 07-28-2015 pneumococcal conjuga te vaccine, 13 valent Lisa Brantley [employer].[facility] Work Phone: [facility] Work Phone: 07-19-2013 diphtheria, tetanus toxoids and acellular pertussis vaccine, unspecified formulation Daniela Older [employer] Work Phone: [facility] 07-12-2013 influenza virus vacc ine, unspecified formulation Lisa Brantley [employer] Work Phone: [facility] Work Phone: 08-28-2012 tetanus and diphther ia toxoids, adsorbed, preservative free, for adult use (2 Lf of tetanus toxoid and 2 Lf of diphtheria toxoid) Lisa Brantley [employer] Work Phone: [facility] Work Phone: 05-22-2012 influenza virus vacc ine, unspecified formulation Lisa Brantley [employer] Work Phone: [facility] Work Phone: 05-25-2011 influenza virus vacc ine, unspecified formulation Lisa Brantley [employer].[facility]ISHING [employer]ESSEL DEC[place]AND Work Phone: [facility] Work Phone: 07-02-2008 influenza virus vacc ine, unspecified formulation Lisa Brantley [employer] Work Phone: [facility] Work Phone: 08-25-2006 tetanus and diphther ia toxoids, adsorbed, preservative free, for adult use (2 Lf of tetanus toxoid and 2 Lf of diphtheria toxoid) Lisa Brantley [employer] Work Phone: [facility] Work Phone: 06-28-2003 pneumococcal polysaccharide vaccine, 23 valent Lisa Brantley [employer] Work Phone: [facility] Payers Date Payer Category Payer Self-pay [id number] 2023 Unknown [id number] 2023 Unknown [id number] 2023 Private Health Insurance [facility] [id number] 2023 Unknown [id number] 2021 Unknown [employer] SUPPLEMENT [id number] 2021-Present [phone] [address] [place] [address] Indemnity [id number] 2021 Unknown [id number] 2009 Unknown [id number] 2002 Medicare MEDICARE MEDICAR E A AND B [id number] 2002-Present [phone] [address] [address] [place] [address] Medicare [id number] 2002 Medicare [id number] 2002 Medicare [id number] Private Health Insurance [employer] [id number] Unknown SELF PAY INSURANCE [id number] Unknown [id number] Unknown [id number] Unknown [id number] Unknown [id number] Unknown [id number] Unknown [id number] Unknown [id number] Unknown [id number] Social History Date Type Detail Facility Start: 05-09-2022 End: 05-20-2024 Tobacco smoking status NHIS Ex-smoker [facility] Start: [birth year]-28-1955 End: 08-28-1977 History of tobacco use Current smoker [facility] Start: 08-28-1957 End: 08-28-1977 History of tobacco use Cigarette Smoker [facility] Start: 02-07-2022 End: 11-22-2024 Alcohol intake Current drinker of alcohol (finding) [facility] Start: 02-07-2022 End: 05-18-2023 Alcohol intake [facility] Start: 09-24-2021 End: 02-10-2022 History SDOH Alcohol Frequency 4 [facility] Start: 09-24-2021 End: 02-10-2022 History SDOH Alcohol Std Drinks 1 [facility] Start: 12-25-2019 End: 02-10-2022 History SDOH Social Connections Get Together 3 [facility] Start: 09-24-2021 End: 02-10-2022 History SDOH Physical Activity MPS 5 [facility] Start: 12-25-2019 End: 02-10-2022 History SDOH Transport Med 2 [facility] Start: 12-25-2019 Education 16 [facility] Start: 1935 Sex Assigned At Not on file [facility] Start: 01-28-2022 End: 05-09-2022 Exposure to SARS-CoV-2 (event) Not sure [facility] Work Phone: Start: 02-08-2022 End: 09-26-2023 Tobacco smoking status DCIS Unknown if ever smoked [facility] Start: 09-14-2018 Heavy [facility] Start: 09-14-2018 None [facility] Start: 09-14-2018 Spouse/ Significant Other [facility] Start: 09-15-2018 Non-smoker [facility] Start: 1935 Sex Assigned At Male [facility] Start: 05-09-2022 End: 05-20-2024 Tobacco use and exposure Smokeless tobacco non-user [facility] Start: 05-18-2023 End: 05-13-2024 Social connection and isolation panel [facility] Do you belong to any clubs or organizations such as taoism groups, unions, fraternal or athletic groups, or school groups? Yes [facility] Are you now , , , , never or living with a partner? [facility] How often to you hav e a drink containing alcohol? 2-4 times a month [facility] How many standard dr inks containing alcohol do you have on a typical day? 1 or 2 [facility] How often do you hav e 6 or more drinks on 1 occasion? Never [facility] How hard is it for y ou to pay for the very basics like food, housing, medical care, and heating Not hard at all [facility] Do you feel stress - tense, restless, nervous, or anxious, or unable to sleep at night because your mind is troubled all the time - these days [OSQ] Not at all [facility] (I/We) worried buster er (my/our) food would run out before (I/we) got money to buy more. Never true [facility] In the past 12 month s, was there a time when you were not able to pay the mortgage or rent on time? No [facility] Start: 12-26-2019 Gender identity Identifies as male gender (finding) [facility] Work Phone: How often to you hav e a drink containing alcohol? 2-3 time sa week [facility] Functional Status Date Assessment Result Facility 11-15-2024 Total score [AUDIT-C] 3 11/16/19 25 3:36 PM EDT Jess Mares [facility] 11-15-2024 How often to you hav e a drink containing alcohol? 2-3 times a week 11/15/2024 3:36 PM EDT UserJess 2-3 time sa week [facility] 11-15-[address] inks containing alcohol do you have on a typical day? 1 or 2 11/15/2024 3:36 PM EDT User, Jess 1 or 2 [facility] 11-15-2024 How often do you hav e 6 or more drinks on 1 occasion? Never 11/15/2024 3:36 PM EDT User, Shakeelt Never [facility] 2014 Are you deaf, or do you have serious difficulty hearing No 2014 11:31 AM EDT Stacie Lockwood LPN No [facility] 2014 Are you blind, or do you have serious difficulty seeing, even when wearing glasses No 2014 11:31 AM PRESTONT Stacie Lockwood LPN No [facility] 2014 Do you have serious difficulty walking or climbing stairs No 2014 11:31 AM PRESTONT Stacie Lockwood LPN No [facility] 2014 Do you have difficul ty dressing or bathing No 2014 11:31 AM EDT Stacie Locwkood LPN No [facility] 2014 Because of a physica l, mental, or emotional condition, do you have difficulty doing errands alone such as visiting a physician's office or shopping No 2014 11:31 AM PRESTONT Stacie Lockwood LPN No [facility] Mental Status Date Assessment Result Facility 2014 Because of a physica l, mental, or emotional condition, do you have serious difficulty concentrating, remembering, or making decisions No 2014 11:31 AM EDT Stacie Lockwood LPN No [facility] Clinical Notes 05-16-2013 to 01-09-2025 Patient InstructionsAng Vickers MD - 01/09/2025 10:32 AM EDTTelephone Encounter - Renetta Gonzalez RN - 01/09/2025 9:21 AM EDTPatient InstructionsPatient InstructionsPatient Instructions Note Date & Type Note Facility 01-09-2025 Instructions Ang Vickers MD - 01/09/2025 10:38 AM EDT We discussed the discoloration and rash on your face: - This appears to be some type of dermatitis or skin irritation. It does not show signs of infection. - Please apply an bpuw-mza-bzerkel topical corticosteroid cream to the affected area as directed on the product label. - Avoid scratching the area to prevent further irritation. - The discoloration should fade over time. If it worsens, spreads significantly, or develops new symptoms such as pain, swelling, or itching, please contact our office for further evaluation. documented in this encounter [facility] 01-09-2025 Note HNO ID: [id number] Author: ANG VICKERS MD Service: ? Author Type: Physician Type: Progress Notes Filed: 01/09/2025 10:44 Note Text: This note was created using [employer]. Subjective Patient presents with: Derm Problem Elyse Maloney is a 89 year old male. Recording using [employer] software for draft documentation of the visit was discussed with the patient/authorized event marketing representative; all questions welcomed and answered. Patient/authorized event marketing representative agreed to proceed Elyse is a 89-year-old male presenting with a discoloration on the right side of his face. Onset of a discoloration on his face approximately 11 days ago, initially noticed by his . The discoloration began as a purple area about the size of a quarter or silver dollar and has since faded in color but spread slightly towards his cheekbone and mouth. He denies any pruritus, pain, or inflammation associated with the discoloration and does not recall any insect bites or trauma to the area. He also denies any recent changes in shaving habits or exposure to irritants. He denies fever or difficulty opening his mouth. Review of Systems Per HPI. 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 furosemide (LASIX) 40 mg tablet Take 1 tablet by mouth every other day. metoprolol succinate ER (TOPROL XL) 100 mg Take 1 tablet by mouth once daily. atorvastatin (LIPITOR) 40 mg tablet Take 1 tablet by mouth daily at bedtime. For cholesterol. VA medication. lisinopril (ZESTRIL, PRINIVIL) 40 mg tablet Take 1 tablet by mouth once daily. VA medication. CPAP Initiate CPAP @ 6 cm of water with humidification. Mask (per patient preference) optional chin strap (if indicated) , filters, tubing, humidifier and lifetime supplies. tamsulosin (FLOMAX) 0.4 mg Take 1 capsule by mouth daily at bedtime. apixaban (ELIQUIS) 5 mg tab(s) Take 5 mg by mouth twice daily. finasteride (PROSCAR) 5 mg tablet Take 1 tablet by mouth once daily. VA medication. COMPOUNDED PRESCRIPTION CPAP mask, tubing, and supplies. Dx: ICD9: 327.23, ICD10: G47.33 COMPOUNDED PRESCRIPTION replacment cpap machine with heated humifier, replacemnt mask and supplies. set presssure at 6 cm and H2o. ISAAC dx. MULTIVITAMIN ORAL TAB Take one(1) tablet daily. No current facility-administered medications for this visit. Objective BP 130/76 (BP Site: Left Arm, BP Position: Sitting, BP Cuff Size: Large Adult) Pulse 64 Temp 36.3 ?C (97.3 ?F) (Temporal) Resp 12 Wt 86.1 kg (189 lb 13.1 oz) BMI 27.24 kg/m? Physical Exam HENT: Head: Comments: Ecchymotic ovoid rash with indistinct borders, non raised, non tender, no warmth, 1 x 1.5 cm on right pre auricular/mandibular angle area. Right Ear: External ear normal. Musculoskeletal: Cervical back: No tenderness. Lymphadenopathy: Cervical: No cervical adenopathy. Assessment and Plan 1. Rash - ICD9: 782.1, ICD10: R21 Non specific, probably resolving. Observe. Try OTC HCC. Return if not better. Ang Vickers MD [facility] 01-09-2025 History of Present illness Narrative This note was created using NoteWriter. Subjective Patient presents with: Derm Problem Elyse Maloney is a 89 year old male. Recording using [employer] software for draft documentation of the visit was discussed with the patient/authorized event marketing representative; all questions welcomed and answered. Patient/authorized event marketing representative agreed to proceed Elyse is a 89-year-old male presenting with a discoloration on the right side of his face. Onset of a discoloration on his face approximately 11 days ago, initially noticed by his . The discoloration began as a purple area about the size of a quarter or silver dollar and has since faded in color but spread slightly towards his cheekbone and mouth. He denies any pruritus, pain, or inflammation associated with the discoloration and does not recall any insect bites or trauma to the area. He also denies any recent changes in shaving habits or exposure to irritants. He denies fever or difficulty opening his mouth. Review of Systems Per HPI. 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 furosemide (LASIX) 40 mg tablet Take 1 tablet by mouth every other day. metoprolol succinate ER (TOPROL XL) 100 mg Take 1 tablet by mouth once daily. atorvastatin (LIPITOR) 40 mg tablet Take 1 tablet by mouth daily at bedtime. For cholesterol. VA medication. lisinopril (ZESTRIL, PRINIVIL) 40 mg tablet Take 1 tablet by mouth once daily. VA medication. CPAP Initiate CPAP @ 6 cm of water with humidification. Mask (per patient preference) optional chin strap (if indicated) , filters, tubing, humidifier and lifetime supplies. tamsulosin (FLOMAX) 0.4 mg Take 1 capsule by mouth daily at bedtime. apixaban (ELIQUIS) 5 mg tab(s) Take 5 mg by mouth twice daily. finasteride (PROSCAR) 5 mg tablet Take 1 tablet by mouth once daily. VA medication. COMPOUNDED PRESCRIPTION CPAP mask, tubing, and supplies. Dx: ICD9: 327.23, ICD10: G47.33 COMPOUNDED PRESCRIPTION replacment cpap machine with heated humifier, replacemnt mask and supplies. set presssure at 6 cm and H2o. ISAAC dx. MULTIVITAMIN ORAL TAB Take one(1) tablet daily. No current facility-administered medications for this visit. Objective BP 130/76 (BP Site: Left Arm, BP Position: Sitting, BP Cuff Size: Large Adult) Pulse 64 Temp 36.3 C (97.3 F) (Temporal) Resp 12 Wt 86.1 kg (189 lb 13.1 oz) BMI 27.24 kg/m Physical Exam HENT: Head: Comments: Ecchymotic ovoid rash with indistinct borders, non raised, non tender, no warmth, 1 x 1.5 cm on right pre auricular/mandibular angle area. Right Ear: External ear normal. Musculoskeletal: Cervical back: No tenderness. Lymphadenopathy: Cervical: No cervical adenopathy. Assessment and Plan 1. Rash - ICD9: 782.1, ICD10: R21 Non specific, probably resolving. Observe. Try OTC HCC. Return if not better. Ang Vickers MD documented in this encounter [facility] 01-09-2025 Telephone encounter Note Protocol recommends see provider in 4 hours. Pt scheduled with Dr Vickers today at 1020. Care plan reviewed with patient. Patient voices understanding. Advised patient that if symptoms get worse to be evaluated in Urgent Care or ER. Reason for Disposition [1] Localized purple or blood-colored spots or dots AND [2] not from injury or friction AND [3] no fever Answer Assessment - Initial Assessment Questions 1. APPEARANCE of RASH: Dark purple-red rash, flat. 2. LOCATION: R cheekbone to R jaw bone. 3. NUMBER: One spot the size of a chap stick 4. SIZE: The size of a chap stick. 5. ONSET: The rash started last 01/02/25. 6. ITCHING: Does not itch. 7. PAIN: - NONE (0): No pain - MILD (1-3): Doesn't interfere with normal activities - MODERATE (4-7): Interferes with normal activities or awakens from sleep - SEVERE (8-10): Excruciating pain, unable to do any normal activities Denies pain. 8. OTHER SYMPTOMS: Denies fever or any other symptoms. 9. : N/A Protocols used: Rash or Redness - [id number] [facility] 01-09-2025 Miscellaneous Notes Protocol recommends see provider in 4 hours. Pt scheduled with Dr Vickers today at 1020. Care plan reviewed with patient. Patient voices understanding. Advised patient that if symptoms get worse to be evaluated in Urgent Care or ER. Reason for Disposition [1] Localized purple or blood-colored spots or dots AND [2] not from injury or friction AND [3] no fever Answer Assessment - Initial Assessment Questions 1. APPEARANCE of RASH: Dark purple-red rash, flat. 2. LOCATION: R cheekbone to R jaw bone. 3. NUMBER: One spot the size of a chap stick 4. SIZE: The size of a chap stick. 5. ONSET: The rash started last 01/02/25. 6. ITCHING: Does not itch. 7. PAIN: - NONE (0): No pain - MILD (1-3): Doesn't interfere with normal activities - MODERATE (4-7): Interferes with normal activities or awakens from sleep - SEVERE (8-10): Excruciating pain, unable to do any normal activities Denies pain. 8. OTHER SYMPTOMS: Denies fever or any other symptoms. 9. : N/A Protocols used: Rash or Redness - [id number] documented in this encounter [facility] 11-22-2024 Instructions Ang Vickers MD - 11/22/2024 2:50 PM EDT Screening schedule The following prevention plan is recommended: RSV Vaccine(1 - 1-dose 75+ series) Never done Advance Directive Discussion due on 08/28/2024 WHAT YOU CAN DO TO PREVENT FALLS Many falls can be prevented. By making some changes, you can lower your chances of falling. Four things YOU can do to prevent falls for you* and your caregiver 1. Begin a regular exercise program Exercise is one of the most important ways to lower your chances of falling. It makes you stronger and helps you feel better. Exercises that improve balance and coordination (like Edwin [employer]) are the most helpful. Lack of exercise leads to weakness and increases your chances of falling. Ask your doctor or health care provider about the best type of exercise program for you. 2. Have your health care provider review your medicines Have your doctor or pharmacist review all the medicines you take, even klvk-nnt-mtzerxk medicines. As you get older, the way medicines work in your body can change. Some medicines, or combinations of medicines, can make you sleepy or dizzy and can cause you to fall. 3. Have your vision checked Have your eyes checked by an eye doctor at least once a year. You may be wearing the wrong glasses or have a condition like glaucoma or cataracts that limits your vision. Poor vision can increase your chances of falling. 4. Make your home safer About half of all falls happen at home. To make your home safer: Remove things you can trip over (like papers, books, clothes, and shoes) from stairs and places where you walk. Remove small throw rugs or use double-sided tape to keep the rugs from slipping. Keep items you use often in cabinets you can reach easily without using a step stool. Have grab bars put in next to your toilet and in the tub or shower. Use non-slip mats in the bathtub and on shower floors. Improve the lighting in your home. As you get older, you need brighter lights to see well. Hang light-weight curtains or shades to reduce glare. Have handrails and lights put in on all staircases. Wear shoes both inside and outside the house. Avoid going barefoot or wearing slippers. For more information, contact: Centers for Disease Control and Prevention www.cdc.gov/injury * This information may not apply if you have certain medical conditions. documented in this encounter [facility] 11-22-2024 Note HNO ID: [id number] Author: ANG VICKERS MD Service: ? Author Type: Physician Type: Progress Notes Filed: 11/22/2024 15:31 Note Text: This note was created using [employer]. Subjective Elyse Maloney is a 88 year old male. He was doing reasonably well at this time. No falls were noted. He was referred to neurology for possible Parkinsonism and gait abnormality. His gait abnormality was felt to be multifactorial. He was seeing a spine surgeon at [facility] for spinal stenosis, and conservative management was recommended. His hypertension, hyperlipidemia, BPH, CAD, and atrial fibrillation were controlled. Review of Systems Constitutional: Negative for appetite change, fatigue and unexpected weight change. HENT: Negative for congestion. Eyes: Negative for visual disturbance. Respiratory: Negative for cough and shortness of breath. Cardiovascular: Positive for leg swelling. Negative for chest pain and palpitations. Gastrointestinal: Negative for abdominal pain, constipation and diarrhea. Genitourinary: Negative for difficulty urinating and dysuria. Musculoskeletal: Negative for arthralgias, back pain and neck pain. Neurological: Negative for dizziness, syncope and headaches. 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) Obstructive Sleep Apnea Other Seborrheic Keratosis Vertebral Artery Stenosis, Left Atrial Fibrillation (Hcc) Coronary Atherosclerosis Impaired Fasting Glucose Abnormal Gait Spinal Stenosis of Lumbar Region Unsteadiness On Feet Cervical Stenosis of Spinal Canal At Risk for Falling Social History Tobacco Use Smoking status: Former Current packs/day: 0.00 Average packs/day: 0.5 packs/day for 20.0 years (10.0 ttl pk-yrs) Types: Cigarettes Start date: 08/28/1955 Quit date: 08/28/1977 Years since quittin.2 Smokeless tobacco: Never Substance Use Topics Alcohol use: Yes Alcohol/week: 3.3 standard drinks of alcohol Types: 2 Cans of Beer (12oz), 1 Martini/Manhattan Drinks per week Drug use: No Current Outpatient Medications Medication Sig vit A/vit C/vit E/zinc/copper (PRESERVISION AREDS ORAL) Take by mouth. furosemide (LASIX) 40 mg tablet Take 1 tablet by mouth every other day. metoprolol succinate ER (TOPROL XL) 100 mg Take 1 tablet by mouth once daily. atorvastatin (LIPITOR) 40 mg tablet Take 1 tablet by mouth daily at bedtime. For cholesterol. VA medication. lisinopril (ZESTRIL, PRINIVIL) 40 mg tablet Take 1 tablet by mouth once daily. VA medication. CPAP Initiate CPAP @ 6 cm of water with humidification. Mask (per patient preference) optional chin strap (if indicated) , filters, tubing, humidifier and lifetime supplies. tamsulosin (FLOMAX) 0.4 mg Take 1 capsule by mouth daily at bedtime. apixaban (ELIQUIS) 5 mg tab(s) Take 5 mg by mouth twice daily. finasteride (PROSCAR) 5 mg tablet Take 1 tablet by mouth once daily. VA medication. COMPOUNDED PRESCRIPTION CPAP mask, tubing, and supplies. Dx: ICD9: 327.23, ICD10: G47.33 COMPOUNDED PRESCRIPTION replacment cpap machine with heated humifier, replacemnt mask and supplies. set presssure at 6 cm and H2o. ISAAC dx. MULTIVITAMIN ORAL TAB Take one(1) tablet daily. OTC PRODUCT Take 1 tablet by mouth twice daily. PreserVision (Patient not taking: Reported on 11/22/2024) No current facility-administered medications for this visit. Objective BP 124/58 (BP Site: Left Arm, BP Position: Sitting) Pulse 71 Temp (!) 35.9 ?C (96.6 ?F) (Temporal) Resp 14 Ht 177.8 cm (5' 10) Wt 88 kg (194 lb 0.1 oz) SpO2 99% BMI 27.84 kg/m? Physical Exam Constitutional: General: He is not in acute distress. Appearance: He is not ill-appearing. HENT: Head: Normocephalic. Eyes: Conjunctiva/sclera: Conjunctivae normal. Cardiovascular: Rate and Rhythm: Normal rate. Rhythm irregularly irregular. Heart sounds: S1 normal and S2 normal. No murmur heard. Pulmonary: Breath sounds: Normal breath sounds. Abdominal: General: There is no distension. Tenderness: There is no abdominal tenderness. Musculoskeletal: Right lower le+ Pitting Edema present. Left lower le+ Pitting Edema present. Neurological: General: No focal deficit present. Mental Status: He is alert. Mental status is at baseline. Gait: Gait abnormal. Comments: Ambulatory with cane. Assessment and Plan 1. Medicare annual wellness visit, subsequent - ICD9: V70.0, ICD10: Z00.00 (primary diagnosis) - See wellness visit. 2. Longstanding persistent atrial fibrillation (HCC) - ICD9: 427.31, ICD10: I48.11 - Controlled. 3. Essential hypertension - ICD9: 401.9, ICD10: I10 - Controlled 4. Atherosclerosis of [place] coronary artery of [place] heart without angina pectoris - ICD9: 414.01, ICD10: I25.10 - Asymptomatic. 5. Abnormal gait - ICD9: 781.2, ICD10: R26.9 - Fall prec (more content not included)... [facility] 11-22-2024 History of Present illness Narrative This note was created using Applits. Subjective Elyse Maloney is a 88 year old male. He was doing reasonably well at this time. No falls were noted. He was referred to neurology for possible Parkinsonism and gait abnormality. His gait abnormality was felt to be multifactorial. He was seeing a spine surgeon at [facility] for spinal stenosis, and conservative management was recommended. His hypertension, hyperlipidemia, BPH, CAD, and atrial fibrillation were controlled. Review of Systems Constitutional: Negative for appetite change, fatigue and unexpected weight change. HENT: Negative for congestion. Eyes: Negative for visual disturbance. Respiratory: Negative for cough and shortness of breath. Cardiovascular: Positive for leg swelling. Negative for chest pain and palpitations. Gastrointestinal: Negative for abdominal pain, constipation and diarrhea. Genitourinary: Negative for difficulty urinating and dysuria. Musculoskeletal: Negative for arthralgias, back pain and neck pain. Neurological: Negative for dizziness, syncope and headaches. 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) Obstructive Sleep Apnea Other Seborrheic Keratosis Vertebral Artery Stenosis, Left Atrial Fibrillation (Hcc) Coronary Atherosclerosis Impaired Fasting Glucose Abnormal Gait Spinal Stenosis of Lumbar Region Unsteadiness On Feet Cervical Stenosis of Spinal Canal At Risk for Falling Social History Tobacco Use Smoking status: Former Current packs/day: 0.00 Average packs/day: 0.5 packs/day for 20.0 years (10.0 ttl pk-yrs) Types: Cigarettes Start date: 08/28/1957 Quit date: 08/28/1977 Years since quittin.2 Smokeless tobacco: Never Substance Use Topics Alcohol use: Yes Alcohol/week: 3.3 standard drinks of alcohol Types: 2 Cans of Beer (12oz), 1 Martini/Manhattan Drinks per week Drug use: No Current Outpatient Medications Medication Sig vit A/vit C/vit E/zinc/copper (PRESERVISION AREDS ORAL) Take by mouth. furosemide (LASIX) 40 mg tablet Take 1 tablet by mouth every other day. metoprolol succinate ER (TOPROL XL) 100 mg Take 1 tablet by mouth once daily. atorvastatin (LIPITOR) 40 mg tablet Take 1 tablet by mouth daily at bedtime. For cholesterol. [facility] medication. lisinopril (ZESTRIL, PRINIVIL) 40 mg tablet Take 1 tablet by mouth once daily. VA medication. CPAP Initiate CPAP @ 6 cm of water with humidification. Mask (per patient preference) optional chin strap (if indicated) , filters, tubing, humidifier and lifetime supplies. tamsulosin (FLOMAX) 0.4 mg Take 1 capsule by mouth daily at bedtime. apixaban (ELIQUIS) 5 mg tab(s) Take 5 mg by mouth twice daily. finasteride (PROSCAR) 5 mg tablet Take 1 tablet by mouth once daily. VA medication. COMPOUNDED PRESCRIPTION CPAP mask, tubing, and supplies. Dx: ICD9: 327.23, ICD10: G47.33 COMPOUNDED PRESCRIPTION replacment cpap machine with heated humifier, replacemnt mask and supplies. set presssure at 6 cm and H2o. ISAAC dx. MULTIVITAMIN ORAL TAB Take one(1) tablet daily. OTC PRODUCT Take 1 tablet by mouth twice daily. PreserVision (Patient not taking: Reported on 11/22/2024) No current facility-administered medications for this visit. Objective BP 124/58 (BP Site: Left Arm, BP Position: Sitting) Pulse 71 Temp (!) 35.9 C (96.6 F) (Temporal) Resp 14 Ht 177.8 cm (5' 10) Wt 88 kg (194 lb 0.1 oz) SpO2 99% BMI 27.84 kg/m Physical Exam Constitutional: General: He is not in acute distress. Appearance: He is not ill-appearing. HENT: Head: Normocephalic. Eyes: Conjunctiva/sclera: Conjunctivae normal. Cardiovascular: Rate and Rhythm: Normal rate. Rhythm irregularly irregular. Heart sounds: S1 normal and S2 normal. No murmur heard. Pulmonary: Breath sounds: Normal breath sounds. Abdominal: General: There is no distension. Tenderness: There is no abdominal tenderness. Musculoskeletal: Right lower le+ Pitting Edema present. Left lower le+ Pitting Edema present. Neurological: General: No focal deficit present. Mental Status: He is alert. Mental status is at baseline. Gait: Gait abnormal. Comments: Ambulatory with cane. Assessment and Plan 1. Medicare annual wellness visit, subsequent - ICD9: V70.0, ICD10: Z00.00 (primary diagnosis) - See wellness visit. 2. Longstanding persistent atrial fibrillation (HCC) - ICD9: 427.31, ICD10: I48.11 - Controlled. 3. Essential hypertension - ICD9: 401.9, ICD10: I10 - Controlled 4. Atherosclerosis of [place] coronary artery of [place] heart without angina pectoris - ICD9: 414.01, ICD10: I25.10 - Asymptomatic. 5. Abnormal gait - ICD9: 781.2, ICD10: R26.9 - Fall precautions. 6. Impaired fasting glucose - ICD9: 790.21, ICD10: R73.01 - Monitored. 7. Pure Hypercholesterolemia - ICD9: 272.0, ICD10: E78.00 - Controlled. [facility] here. Ang Vickers MD Images from the original note were not included. Elyse Maloney is a 88 year old male here for a Medicare wellness visit. Medicare Health Risk Assessment General Health Good Exercise: Minutes/Day 20 min Exercise: Days/Week 3 days Alcohol: Daily Use 2-3 times a week Alcohol: Drinks/Day 1 or 2 Alcohol: 6 or more drinks Never Feel off balance Yes Concerns: Teeth/Dentures No Concerns: Sexual function No Troubled by feelings None of the above Frequency: Eating healthy diet Nearly every day ADLs requiring help None of the above Safety precautions in home/vehicle Yes Smoke, vape, chews tobacco No Difficulty hearing Yes, I wear a hearing aid Difficulty seeing No Current Providers Specialists: I have reviewed specialist-related care of the patient in the medical record. Current care team: Patient Care Team: Ang Vickers MD as PCP - General Daniela Muir, [employer] as Sample Taker Operator (Internal Medicine) Bruce Walker MD (Neurology) Marlene Oliveira MD (Neurology) Outside specialists seen: Dr. Newton Palmer, cardiology. Dr. Carlos Soto, dermatology. Dr. Dino Liriano, ophthalmology. Dr. Eneida Wellington, Pulmonary and Sleep Medicine. Dr. Guero Christine, Spine Surgery [facility] Kaitlin, [employer] DECKHAND ([facility] [place]) [employer] for CPAP supplies. Medical/Family history review Reviewed and updated problem list, medical/surgical/family/social history, medications, and allergies. Opioid use review Opioid Medications (last 90 days) No data to display Anxiety/Depression screening PHQ-2 Score: 0 (Lower risk for depression) CHEY-7 Score: 0. Recommendation: no further intervention at this time Cognitive screening Mini Cog Score: 5 Cognitive screening reviewed and No further action needed (score 3-5). Functional Observation Was the patient's Timed Up & Go test unsteady or >= 12 seconds? No Advance Care Planning Surrogate decision maker and/or advance care plan documented Measurements BP 136/74 Pulse 71 Temp (!) 35.9 C (96.6 F) (Temporal) Resp 14 Ht 177.8 cm (5' 10) Wt 88 kg (194 lb 0.1 oz) SpO2 99% BMI 27.84 kg/m Vision Screening: Follows with optometry/ophthalmology Assessment/Plan Medicare annual wellness visit, subsequent (Z00.00) - Counseled on healthy diet and regular exercise - Fall avoidance information provided - Personalized prevention plan provided - Discussed need for and benefit of weight loss. BMI 27.84 kg/(m^2) documented in this encounter [facility] 11-22-2024 Note HNO ID: [id number] Author: ANG VICKERS MD Service: ? Author Type: Physician Type: Progress Notes Filed: 11/22/2024 15:31 Note Text: Elyse Maloney is a 88 year old male here for a Medicare wellness visit. Medicare Health Risk Assessment General Health Good Exercise: Minutes/Day 20 min Exercise: Days/Week 3 days Alcohol: Daily Use 2-3 times a week Alcohol: Drinks/Day 1 or 2 Alcohol: 6 or more drinks Never Feel off balance Yes Concerns: Teeth/Dentures No Concerns: Sexual function No Troubled by feelings None of the above Frequency: Eating healthy diet Nearly every day ADLs requiring help None of the above Safety precautions in home/vehicle Yes Smoke, vape, chews tobacco No Difficulty hearing Yes, I wear a hearing aid Difficulty seeing No Current Providers Specialists: I have reviewed specialist-related care of the patient in the medical record. Current care team: Patient Care Team: Ang Vickers MD as PCP - General Daniela Muir APRN.[employer] as Sample Taker Operator (Internal Medicine) Bruce Walker MD (Neurology) Marlene Oliveira MD (Neurology) Outside specialists seen: Dr. Newton Palmer, cardiology. Dr. Carlos Soto, dermatology. Dr. Dino Liriano, ophthalmology. Dr. Eneida Wellington, Pulmonary and Sleep Medicine. [facility], [employer] ([facility]) [employer] for CPAP supplies. Medical/Family history review Reviewed and updated problem list, medical/surgical/family/social history, medications, and allergies. Opioid use review Opioid Medications (last 90 days) No data to display Anxiety/Depression screening PHQ-2 Score: 0 (Lower risk for depression) CHEY-7 Score: 0. Recommendation: no further intervention at this time Cognitive screening Mini Cog Score: 5 Cognitive screening reviewed and No further action needed (score 3-5). Functional Observation Was the patient's Timed Up AND Go test unsteady or >= 12 seconds? No Advance Care Planning Surrogate decision maker and/or advance care plan documented Measurements BP 136/74 Pulse 71 Temp (!) 35.9 ?C (96.6 ?F) (Temporal) Resp 14 Ht 177.8 cm (5' 10) Wt 88 kg (194 lb 0.1 oz) SpO2 99% BMI 27.84 kg/m? Vision Screening: Follows with optometry/ophthalmology Assessment/Plan Medicare annual wellness visit, subsequent (Z00.00) - Counseled on healthy diet and regular exercise - Fall avoidance information provided - Personalized prevention plan provided - Discussed need for and benefit of weight loss. BMI 27.84 kg/(m2) [facility] 09-19-2024 Instructions Bruce Walker MD - 09/19/2024 9:45 AM EST It was a pleasure to see you today. We addressed the following diagnoses: Abnormal gait (primary encounter diagnosis) Neuropathy Hypertension, unspecified type Screening for diabetes mellitus (dm) My recommendations are as follows: 09/19/2024 Visit: I would like to see the MRI T spine images. If you have a way of sending them to us, that would be useful. More labwork for reversible/treatable causes of neuropathy It is possible to do a DATscan which is ~95% accurate at ruling out Parkinson Disease. We can consider this if your other providers would find this information useful. I will send my final note to Dr. Christine at [facility] [phone], Orthopaedic Spine surgery. For now, plan to follow up in 12 months. Or, equivalently, you could follow with Dr. Oliveira. Patient's perception of importance for healthcare provider to let them know of research trials for which they may be eligible? Very Important No follow-ups on file. If there are any concerns before your next visit, please call or you can send a message through [facility]. You can also now schedule and select appointments through [facility]. Bruce Walker MD documented in this encounter [facility] 09-19-2024 History of Present illness Narrative [facility] - Follow Up Visit Primary Movement Disorders Neurologist: Bruce Walker MD Primary Movement Disorders JOANNA: No referring provider defined for this encounter. Ang Vickers MD [id number] [facility] [id number] Dear : I had the pleasure of evaluating Mr. Maloney to our clinic today. As you know he is a 88 year old right-handed male who is seen in consultation for evaluation of balance issues since 2021. He is seen with several relatives. Subjective HISTORY OF PRESENT ILLNESS: Reason for visit is gait impairment. Has seen neurology PA Marsha Arias on 05/22/[address] Oliveira as well. Patient is 88 yo with PMH significant for A-fib on Eliquis, hypertension, hyperlipidemia, CAD, ISAAC, orthostatic dizziness, EMG with evidence of lumbar radiculopathy, low B12 levels, significant stenosis in cervical spine as well. In addition, he has left rotator cuff tear s/p repair, left hip replacement, left knee replacement. Concern for balance issues started around 2021, where he starts to feel dizzy and lightheaded. If he grabs a chair handle, everything is ok. He has trouble standing still for periods of time. He describes dizziness: no room spinning. He feels the bottoms of his feet are not planted. He does not feel like he is going to faint. It is fine when he starts to walk. It gets more difficult when he closes his eyes. He walks very carefully/gingerly. He has lost his sense of smell and taste. There is no RBD, no constipation. He was in PT at [facility] Denies neuropathy sensations in his feet. Denies any pain. He has an ache in his lower back. He has found himself leaning slightly forward when walking. When he stars leaning forward he finds he shuffles. No tremor. No muscle stiffness. He's fallen, three times in last 3 years. The most recent fall was when he tripped with right foot on a chair leg. February 2024. He had another fall in Apr 2024 where he missed a step. He did have pesticide exposure in his earlier years. MRI lumbar spine from December 2023 reviewed, there is stenosis at multiple levels, moderate to severe at L1-L2, moderate at L3-L4. MRI cervical spine with mild to moderate stenosis with normal cord signal. Memory: good Urine control issues: denies Vision problems: has macular degeneration. EMG report from 01/19/2024: 1. The residuals of an old intraspinal canal lesion (ie: motor radiculopathy) at the left L5 root or segment, moderate to severe in degree electrically. 2. An active/ongoing on remote/chronic intraspinal canal lesion (ie: motor radiculopathy) at the left S1 root or segment, mild in degree electrically. 3. The residuals of an old intraspinal canal lesion (ie: motor radiculopathy) at the left C8 root or segment, mild in degree electrically. 4. Evidence of a left median mononeuropathy at or distal to the wrist (ie: carpal tunnel syndrome), mild in degree electrically. 5. In the setting of #1 and 2 above, an axonal large fiber polyneuropathy cannot be reliably determined on today's study as the absent sensory responses in the lower limb could be normal for a patient of this age. There is no convincing electrodiagnostic evidence to support the presence of neuropathy, but it cannot be reliably excluded either. Questionnaires: In addition, the following activities of daily living that may be affected by tremors were evaluated: Speaking: Feeding: Bringing Liquids to Mouth: Hygiene: Dressing: Not affected Writing: Not affected Working: Number of falls in the Last Month: 0 Mood/Behavior Depression: PHQ-9 Score: 0 usually representing no significant (0-4) depression. Anxiety: CHEY-7 Total Score: 0 usually representing no significant (0-4) anxiety. Finally, the following table shows the patient's overall global physical and mental health using the PROMIS scale: PROMIS-10 Flowsheet Row Office Visit from 09/19/2024 in [facility] Office Visit from 06/28/2024 in Neurology Global Physical Health T Score 50.8 50.8 Global Mental Health T Score -- 56 0-10 Standard Pain Scale 4 4 *PROMIS-10 scoring scale: mean = 50, over 50 is above average, under 50 is below average Review of Systems All other systems reviewed and are negative. ALLERGIES No Active Allergies Current Outpatient Medications Medication Sig vit A/vit C/vit E/zinc/copper (PRESERVISION AREDS ORAL) Take by mouth. furosemide (LASIX) 40 mg tablet Take 1 tablet by mouth every other day. metoprolol succinate ER (TOPROL XL) 100 mg Take 1 tablet by mouth once daily. atorvastatin (LIPITOR) 40 mg tablet Take 1 tablet by mouth daily at bedtime. For cholesterol. VA medication. lisinopril (ZESTRIL, PRINIVIL) 40 mg tablet Take 1 tablet by mouth once daily. VA medication. CPAP Initiate CPAP @ 6 cm of water with humidification. Mask (per patient preference) optional chin strap (if indicated) , filters, tubing, humidifier and lifetime supplies. tamsulosin (FLOMAX) 0.4 mg Take 1 capsule by mouth daily at bedtime. apixaban (ELIQUIS) 5 mg tab(s) Take 5 mg by mouth twice daily. finasteride (PROSCAR) 5 mg tablet Take 1 tablet by mouth once daily. VA medication. COMPOUNDED PRESCRIPTION CPAP mask, tubing, and supplies. Dx: ICD9: 327.23, ICD10: G47.33 COMPOUNDED PRESCRIPTION replacment cpap machine with heated humifier, replacemnt mask and supplies. set presssure at 6 cm and H2o. ISAAC dx. MULTIVITAMIN ORAL TAB Take one(1) tablet daily. OTC PRODUCT Take 1 tablet by mouth twice daily. PreserVision No current facility-administered medications for this visit. Past Medical and Surgical History: has a past medical history of Acquired left foot drop (1998), Atrial fibrillation (HCC) (04/29/2020), Diverticulosis of colon (without mention of hemorrhage) (04/05/2005), Herniated lumbar intervertebral disc (1998), Hydrocele, bilateral (06/20/2022), Obstructive sleep apnea (08/16/2010), Pure hypercholesterolemia (04/05/2005), SLEEP APNEA NOS (12/29/2008), Unspecified essential hypertension (04/05/2005), and Unspecified hyperplasia of prostate without urinary obstruction and other lower urinary tract symptoms (LUTS) (05/21/2010). has a past surgical history that includes colonoscopy flx dx w/collj spec when pfrmd (03/31/2003); arthroscopy knee diagnostic w/wo synovial bx spx (08/28/2007); arthrotomy w/meniscus repair knee (10/2008); rpr complex retina detach vitrect &membrane peel (11/26/2010); arthrp acetblr/prox fem prostc agrft/algrft (05/22/2012); cystourethroscopy (06/28/2012); colonoscopy flx dx w/collj spec when pfrmd (09/05/2013); revise median n/carpal tunnel surg (Left, 06/10/2020); and left heart cath,percutaneous (05/25/2020). Social History Tobacco Use Smoking status: Former Current packs/day: 0.00 Average packs/day: 0.5 packs/day for 20.0 years (10.0 ttl pk-yrs) Types: Cigarettes Start date: 08/28/1957 Quit date: 08/28/1977 Years since quittin.0 Smokeless tobacco: Never Substance Use Topics Alcohol use: Yes Alcohol/week: 3.3 standard drinks of alcohol Types: 2 Cans of Beer (12oz), 1 Martini/Manhattan Drinks per week Drug use: No Family History: family history includes Diabetes in his father; Heart in his father; Hypertension in his mother; None in his sister. Objective Vital Signs: Ht 177.8 cm (5' 10) Wt 83.9 kg (185 lb) SpO2 97% BMI 26.54 kg/m Orthostatic Vitals: Sitting: BP 156/84 Pulse 63 Standing: BP 160/72 Pulse 69 Weight: 83.9 kg (185 lb) Height: 177.8 cm (5' 10) No LMP for male patient. Body mass index is 26.54 kg/m . General Physical Examination: General: Awake, alert, interactive, no acute distress, good nutritional status, normal development, well-kept Heart: RRR normal S1S2 no MRG no carotid bruits General Neurological Examination: Neurological Exam Mental Status Awake and alert. Oriented only to person, place, time and situation. Recalls 3 of 3 objects immediately. At 3 minutes recalls 0 of 3 objects. Recalls 0 of 3 objects with prompting. no dysarthria present. Able to name objects, name parts of objects and repeat. Follows two-step commands. Able to spell words backwards. Fund of knowledge is appropriate for level of education. Lisset aguilar all sound fine.. Cranial Nerves CN II: Right visual acuity: Counts fingers. Left visual acuity: Counts fingers. Right normal visual field. Left normal visual field. CN III, IV, : Extraocular movements intact bilaterally. No nystagmus. Hypometric saccades. Normal smooth pursuit. Normal lids and orbits bilaterally. Pupils equal round and reactive to light bilaterally. CN V: Facial sensation is normal. CN VII: Full and symmetric facial movement. CN VIII: Right: Hearing is decreased. Left: Hearing is decreased. CN IX, X: Palate elevates symmetrically CN XI: Shoulder shrug strength is normal. CN XII: Tongue midline without atrophy or fasciculations. Motor Strength is 5/5 in all four extremities except as noted. Left EF and EE is 4/5 Left dorsiflexion is 4-/5 Left Plantar is 5/5 See UPDRS. Sensory Temperature abnormality: Small differences noted at ankles. Vibration abnormality: 10% at toes 100% at knees. Reflexes Right Left Brachioradialis 2+ 2+ Biceps 2+ 2+ Triceps 2+ 2+ Patellar 3+ 3+ Achilles 0 0 Right Plantar: equivocal Left Plantar: equivocal Right pathological reflexes: Trenton's absent. Tromner absent. Suprapatellar present. Crossed adductor present. Left pathological reflexes: Trenton's absent. Tromner absent. Suprapatellar present. Crossed adductor present. Coordination Right: Pkoift-dz-hmbc normal. Atif-jq-hsfn normal.Left: Zcpisk-eo-dgnf normal. Surq-kq-diez normal. Slightly choppy H2S but stays on the correct line See UPDRS Normal finger chasing bilat. Gait Casual gait: Wide stance. Reduced stride length. Hesitant, shuffling and antalgic gait. Normal right arm swing. Reduced left arm swing.Normal toe walking. Normal heel walking. Tandem gait abnormality: Romberg is present. Normal pull test. Able to rise from chair without using arms. He walks with mild anterior flexion at the hip/drunk. Wide base. Left foot turned inward. Has more M-L sway. Right shoulder elevated. Careful turns.. Movement Disorders Scales Performed: MDS-UPDRS Motor subscale condition of exam Medication Off/On/Naiive Drug Naiive Time of UPDRS 0916 Time of Last Medication Last Medication Taken DBS Right N/A DBS Left N/A MDS-UPDRS Motor subscale scores Speech 0-Normal. No speech problems. Facial Expression 0-Normal. Normal facial expression. Rigidity Neck 1-Slight. Rigidity only detected with activation maneuver. (cannot rule out paratonia) Rigidity Right Upper Extremity 0-Normal. No rigidity. (cannot rule out paratonia) Rigidity Left Upper Extremity 0-Normal. No rigidity. (cannot rule out paratonia) Rigidity Right Lower Extremity 0-Normal. No rigidity. Rigidity Left Lower Extremity 0-Normal. No rigidity. Finger Taps Right 0-Normal. No problems. ` Finger Taps Left 1-Slight. a) the regular rhythm is broken with one or two interruptions or hesitations of the tapping movement, b) slight slowing, c) the amplitude decrements near the end of the 10 taps. (dec) Hand Movements Right 1-Slight. a) the regular rhythm is broken with one or two interruptions or hesitations of the movement, b) slight slowing, c) the amplitude decrements near the end of the task. Hand Movements Left 1-Slight. a) the regular rhythm is broken with one or two interruptions or hesitations of the movement, b) slight slowing, c) the amplitude decrements near the end of the task. (dec) Arm Movements Right 1-Slight. a) the regular rhythm is broken with one or two interruptions or hesitations of the movement, b) slight slowing, c) the amplitude decrements near the end of the sequence. Arm Movements Left 2-Mild. a) 3 to 5 interruptions during the movements, b) mild slowing, c) the amplitude decrements midway in the sequence. Toe Taps Right 1-Slight. a) the regular rhythm is broken with one or two interruptions or hesitations of the tapping movement, b) slight slowing, c) the amplitude decrements near the end of the ten taps. Toe Taps Left 2-Mild. a) 3 to 5 interruptions during the tapping movements, b) mild slowing, c) the amplitude decrements midway in the task. Leg Agility Right 1-Slight. a) the regular rhythm is broken with one or two interruptions or hesitations of the movement, b) slight slowing, c) the amplitude decrements near the end of the task. Leg Agility Left 2-Mild. a) 3 to 5 interruptions during the movements, b) mild slowness, c) the amplitude decrements midway in the task. Arise From Chair 1-Slight. Arising is slower than normal, or may need more than one attempt, or may need to move forward in the chair to arise. No need to use the arms of the chair. Gait 1-Slight. Independent walking with minor gait impairment. Gait Freezing 0-Normal. No freezing. Posture Stability 0-Normal. No problems: recovers with one or two steps. Posture 3-Moderate. Stooped posture, scoliosis or leaning to one side that cannot be corrected volitionally to a normal posture by the patient. Body Bradykinesia 0-Normal. No problems. Postural Tremor Hand Right 0-Normal. No tremor. Postural Tremor Hand Left 0-Normal. No tremor. Kinetic Tremor Right 0-Normal. No tremor. Kinetic Tremor Left 0-Normal. No tremor. Rest Tremor Amplitude Right Upper Extremity 0-Normal. No tremor. Rest Tremor Amplitude Left Upper Extremity 0-Normal. No tremor. Rest Tremor Amplitude Right Lower Extremity 0-Normal. No tremor. Rest Tremor Amplitude Left Lower Extremity 0-Normal. No tremor. Rest Tremor Amplitude Lip/Jaw 0-Normal. No tremor. Rest Tremor Constancy 0-Normal. No tremor. MDS-UPDRS Motor subscale totals Left Total 8 Right Total 4 Midline Total 6 Tremor Total / 10 0 PIGD Total / 3 1 Overall Total 18 Change Better/Worse % Change Compared to Last Filed Total Assessment and Plan: Assessment Mr. Maloney is a right-handed 88 year old year old male with Gait and balance disturbance most noticeable when standing still with eyes closed. He feels the ground is moving, but denies lightheadedness or vertigo. He feels left side of body is weaker. Of note comorbidities include lumbar stenosis, cervical spondylosis, L shoulder rotator cuff tear s/p repair, left knee and hip replacement, macular degeneration. On exam, he has hyperreflexia at the knees, sensory loss in the lower legs. Gait is very abnormal, with anterior flexion at the waist, wide base, internally rotated left foot, enhanced M-L sway. Right shoulder elevated. +romberg sign. In terms of parkinsonism, he has interruptions on right, decrement on left. Slow on both sides. UPDRS of 18 (mild neck rigidity, slowness left > right with decrement, no tremor). Has anosmia. I suspect his gait disorder is multifactorial. He has neuropathy, Lspine issues. No clear evidence of cerebellar dysfunction. He does meet criteria for parkinsonism but cannot rule out a contribution of other issues like spine or arthritis to the parkinsonism (in other words, it could be pseudo-parkinsonism). We discussed DATscan as an option to clarify whether there is neurodegenerative parkinsonism. Or, could re-examine him in a year to see if anything has progressed/changed. I will send my final note to Dr. Christine at [facility] [phone], Orthopaedic Spine surgery. The following are the current problems noted and addressed during this visit: Multifactorial gait disorder (primary encounter diagnosis) Abnormal gait Spinal stenosis of lumbar region, unspecified whether neurogenic claudication present Neuropathy Hypertension, unspecified type Screening for diabetes mellitus (dm) Plan 09/19/2024 Visit: I would like to see the MRI T spine images. If you have a way of sending them to us, that would be useful. More labwork for reversible/treatable causes of neuropathy It is possible to do a DATscan which is ~95% accurate at ruling out Parkinson Disease. We can consider this if your other providers would find this useful. I will send my final note to Dr. Christine at [facility] [phone], Orthopaedic Spine surgery. For now, plan to follow up in 12 months. Or, equivalently, you could follow with Dr. Oliveira. Patient's perception of importance for healthcare provider to let them know of research trials for which they may be eligible? Very Important Updated Parkinson's Medication Schedule: Medications Level of service : 03867 (40-68 min). Time spent 61 min on the day of service, which included preparing to see the patient, [id number] patient care, completing clinical documentation, obtaining and/or reviewing separately obtained history, performing a medically appropriate examination, counseling and educating the patient/family/caregiver, and communicating with other HCPs (not separately reported). Thank you for allowing me to be part of the clinical care of this patient! I look forward to continued participation in the patient s care with you. Please do not hesitate to call with any questions. Sincerely, Bruce Walker MD documented in this encounter [facility] 09-19-2024 Note HNO ID: [id number] Author: BRUCE WALKER MD Service: ? Author Type: Physician Type: Progress Notes Filed: 09/19/2024 11:21 Note Text: [facility] - Follow Up Visit Primary Movement Disorders Neurologist: Bruce Walker MD Primary Movement Disorders JOANNA: No referring provider defined for this encounter. Ang Vickers MD [id number] [facility] [id number] Dear : I had the pleasure of evaluating Mr. Maloney to our clinic today. As you know he is a 88 year old right-handed male who is seen in consultation for evaluation of balance issues since 2021. He is seen with several relatives. Subjective HISTORY OF PRESENT ILLNESS: Reason for visit is gait impairment. Has seen neurology PA Marsha Arias on 05/22/[address] Oliveira as well. Patient is 88 yo with PMH significant for A-fib on Eliquis, hypertension, hyperlipidemia, CAD, ISAAC, orthostatic dizziness, EMG with evidence of lumbar radiculopathy, low B12 levels, significant stenosis in cervical spine as well. In addition, he has left rotator cuff tear s/p repair, left hip replacement, left knee replacement. Concern for balance issues started around 2021, where he starts to feel dizzy and lightheaded. If he grabs a chair handle, everything is ok. He has trouble standing still for periods of time. He describes dizziness: no room spinning. He feels the bottoms of his feet are not planted. He does not feel like he is going to faint. It is fine when he starts to walk. It gets more difficult when he closes his eyes. He walks very carefully/gingerly. He has lost his sense of smell and taste. There is no RBD, no constipation. He was in PT at [facility] Denies neuropathy sensations in his feet. Denies any pain. He has an ache in his lower back. He has found himself leaning slightly forward when walking. When he stars leaning forward he finds he shuffles. No tremor. No muscle stiffness. He's fallen, three times in last 3 years. The most recent fall was when he tripped with right foot on a chair leg. February 2024. He had another fall in Apr 2024 where he missed a step. He did have pesticide exposure in his earlier years. MRI lumbar spine from December 2023 reviewed, there is stenosis at multiple levels, moderate to severe at L1-L2, moderate at L3-L4. MRI cervical spine with mild to moderate stenosis with normal cord signal. Memory: good Urine control issues: denies Vision problems: has macular degeneration. EMG report from 01/19/2024: 1. The residuals of an old intraspinal canal lesion (ie: motor radiculopathy) at the left L5 root or segment, moderate to severe in degree electrically. 2. An active/ongoing on remote/chronic intraspinal canal lesion (ie: motor radiculopathy) at the left S1 root or segment, mild in degree electrically. 3. The residuals of an old intraspinal canal lesion (ie: motor radiculopathy) at the left C8 root or segment, mild in degree electrically. 4. Evidence of a left median mononeuropathy at or distal to the wrist (ie: carpal tunnel syndrome), mild in degree electrically. 5. In the setting of #1 and 2 above, an axonal large fiber polyneuropathy cannot be reliably determined on today's study as the absent sensory responses in the lower limb could be normal for a patient of this age. There is no convincing electrodiagnostic evidence to support the presence of neuropathy, but it cannot be reliably excluded either. Questionnaires: In addition, the following activities of daily living that may be affected by tremors were evaluated: Speaking: Feeding: Bringing Liquids to Mouth: Hygiene: Dressing: Not affected Writing: Not affected Working: Number of falls in the Last Month: 0 Mood/Behavior Depression: PHQ-9 Score: 0 usually representing no significant (0-4) depression. Anxiety: CHEY-7 Total Score: 0 usually representing no significant (0-4) anxiety. Finally, the following table shows the patient's overall global physical and mental health using the PROMIS scale: PROMIS-10 Flowsheet Row Office Visit from 09/19/2024 in [facility] Visit from 06/28/2024 in Neurology Global Physical Health T Score 50.8 50.8 Global Mental Health T Score -- 56 0-10 Standard Pain Scale 4 4 *PROMIS-10 scoring scale: mean = 50, over 50 is above average, under 50 is below average Review of Systems All other systems reviewed and are negative. ALLERGIES No Active Allergies Current Outpatient Medications Medication Sig vit A/vit C/vit E/zinc/copper (PRESERVISION AREDS ORAL) Take by mouth. furosemide (LASIX) 40 mg tablet Take 1 tablet by mouth every other day. metoprolol succinate ER (TOPROL XL) 100 mg Take 1 tablet by mouth once daily. atorvastatin (LIPITOR) 40 mg tablet Take 1 tablet by mouth daily at bedtime. For cholesterol. VA medication. lisinopril (ZESTRIL, PRINIVIL) 40 mg tablet Take 1 tablet by mouth once daily. VA medication. CPAP Initia (more content not included)... [facility] 08-01-2024 Telephone encounter Note Referral source: Guero Christine MD ([facility]) Reason for visit: gait issues, opinion on Parkinson's disease External records: Sent with referral Triage: Not required Financial clearance: Not required to schedule Patient already completed a recent movement disorders consult with Dr. Marlene Oliveira. [facility] 08-01-2024 Miscellaneous Notes Referral source: Guero Christine MD ([facility]) Reason for visit: gait issues, opinion on Parkinson's disease External records: Sent with referral Triage: Not required Financial clearance: Not required to schedule Patient already completed a recent movement disorders consult with Dr. Marlene Oliveira. documented in this encounter [facility] 07-08-2024 Telephone encounter Note CD READY FOR HEADING REPAIRER AT [facility] Pt is aware [facility] 07-08-2024 Miscellaneous Notes CD READY FOR HEADING REPAIRER AT [facility] Pt is aware calling to request a disk for pt's MRI done on 01-24-24. Pt has apt with Dr. Guero Christine Orthopedic surgeon on 07-10-24 at [facility]. Please advise when ready for worm picker. Raheem Oliver LPN documented in this encounter [facility] 07-08-2024 Telephone encounter Note calling to request a disk for pt's MRI done on 01-24-24. Pt has apt with Dr. Guero Christine Orthopedic surgeon on 07-10-24 at [facility]. Please advise when ready for worm picker. Raheem Oliver LPN [facility] 06-28-2024 Marlene Rivera MD - 06/28/2024 9:18 AM EDT I think things are primarily from the lumbar stenosis. There are some subtle signs of Parkinson's but nothing definitive. I'll take a look at you in a year to see if it has evolved at all. documented in this encounter [facility] 06-28-2024 Note HNO ID: [id number] Author: MARLENE OLIVEIRA MD Service: ? Author Type: Physician Type: Progress Notes Filed: 07/23/2024 23:45 Note Text: NEW PATIENT EVALUATION Subjective HPI Elyse Maloney is a 88 year old ambidextrous / right handed male who presents for evaluation of gait impairment. Marsha Arias PA-C is the referring provider. Dr. Ang Vickers MD is the PCP. Started with a feeling of swaying while standing. Doesn't seem to pick his feet up enough while walking. Has fallen a few times. - February tripped on the leg of a table - [place] a step at a baseball stadium and didn't see a step - Tripped on a step coming into the house from the garage His is concerned about PD after reading about it because for the past 6-12 months has lost his smell and taste, though he notes this is has been present for several years. Recently she was cooking ribs in the house all day and he couldn't smell them. His hands are a little bit numb and not as strong. No problems with manual dexterity. Doesn't notice numbness in his feet. No constipation. No dream enactment, uses CPAP for ISAAC. Sleeps from [id number] but then at night might fall asleep when watching TV. Medications: Current Outpatient Medications Medication Sig Dispense Refill furosemide (LASIX) 40 mg tablet Take 1 tablet by mouth every other day. metoprolol succinate ER (TOPROL XL) 100 mg Take 1 tablet by mouth once daily. OTC PRODUCT Take 1 tablet by mouth twice daily. PreserVision atorvastatin (LIPITOR) 40 mg tablet Take 1 tablet by mouth daily at bedtime. For cholesterol. VA medication. lisinopril (ZESTRIL, PRINIVIL) 40 mg tablet Take 1 tablet by mouth once daily. VA medication. CPAP Initiate CPAP @ 6 cm of water with humidification. Mask (per patient preference) optional chin strap (if indicated) , filters, tubing, humidifier and lifetime supplies. 1 Each 0 tamsulosin (FLOMAX) 0.4 mg Take 1 capsule by mouth daily at bedtime. 30 capsule 2 apixaban (ELIQUIS) 5 mg tab(s) Take 5 mg by mouth twice daily. finasteride (PROSCAR) 5 mg tablet Take 1 tablet by mouth once daily. VA medication. COMPOUNDED PRESCRIPTION CPAP mask, tubing, and supplies. Dx: ICD9: 327.23, ICD10: G47.33 1 Each 0 COMPOUNDED PRESCRIPTION replacment cpap machine with heated humifier, replacemnt mask and supplies. set presssure at 6 cm and H2o. ISAAC dx. 1 Each 11 MULTIVITAMIN ORAL TAB Take one(1) tablet daily. 0 No current facility-administered medications for this visit. ROS ROS: His ROS was positive for that mentioned in the HPI. Otherwise a 10-point ROS was completed and was negative. ALLERGIES No Active Allergies Past Medical History: PAST MEDICAL HISTORY Diagnosis Date Acquired left foot drop 1998 Atrial fibrillation (HCC) 04/29/2020 Diverticulosis of colon (without mention of hemorrhage) 04/05/2005 Herniated lumbar intervertebral disc 1998 Left foot drop Hydrocele, bilateral 06/20/2022 Obstructive sleep apnea 08/16/2010 Pure hypercholesterolemia 04/05/2005 SLEEP APNEA NOS 12/29/2008 Wearing CPAP 8 hours a night as of 01-03 Last sleep study about age 70 Unspecified essential hypertension 04/05/2005 Unspecified hyperplasia of prostate without urinary obstruction and other lower urinary tract symptoms (LUTS) 05/21/2010 Family History: FAMILY HISTORY Problem Relation Age of Onset Hypertension Mother dec. age 88 Heart Father dec. age 83, CHF Diabetes Father None Sister Sister diagnosed with AD 2 years ago Social History: Social History Tobacco Use Smoking status: Former Current packs/day: 0.00 Average packs/day: 0.5 packs/day for 20.0 years (10.0 ttl pk-yrs) Types: Cigarettes Start date: 08/28/1957 Quit date: 08/28/1977 Years since quittin.8 Smokeless tobacco: Never Substance Use Topics Alcohol use: Yes Alcohol/week: 3.3 standard drinks of alcohol Types: 2 Cans of Beer (12oz), 1 Martini/Manhattan Drinks per week Drug use: No Never a heavy drinker Objective 06/28/24 0817 BP: 133/66 BP Site: Right Arm BP Position: Sitting BP Cuff Size: Regular Adult Pulse: (!) 58 SpO2: 97% Weight: 88 kg (194 lb 0.1 oz) Height: 177.8 cm (5' 10) Physical Examination General Appearance: Well appearing, alert, in no acute distress, well-hydrated, well nourished. Head: Normocephalic Neck: Supple Heart: RRR Peripheral Pulses: Normal Neurologic Examination Mental Status: He is alert. He is fully oriented. Attention is intact. Recent and remote memory is intact. Language shows normal comprehension and fluency. Praxis is normal. Affect is appropriate. Cranial Nerves: Pupils are equal and reactive to light. Extraocular movements show full and smooth pursuits. No nystagmus. Funduscopic exam shows sharp optic discs and normal vasculature. Visual brothers are full to confrontation. Facial sensation is intact. Facial activation is symmetric. Hearing is intact to conversation. Th (more content not included)... [facility] 06-28-2024 History of Present illness Narrative NEW PATIENT EVALUATION Subjective HPI Elyse Maloney is a 88 year old ambidextrous / right handed male who presents for evaluation of gait impairment. Marsha Arias PA-C is the referring provider. Dr. Ang Vickers MD is the PCP. Started with a feeling of swaying while standing. Doesn't seem to pick his feet up enough while walking. Has fallen a few times. - February tripped on the leg of a table - Missed a step at a baseball stadium and didn't see a step - Tripped on a step coming into the house from the garage His is concerned about PD after reading about it because for the past 6-12 months has lost his smell and taste, though he notes this is has been present for several years. Recently she was cooking ribs in the house all day and he couldn't smell them. His hands are a little bit numb and not as strong. No problems with manual dexterity. Doesn't notice numbness in his feet. No constipation. No dream enactment, uses CPAP for ISAAC. Sleeps from [id number] but then at night might fall asleep when watching TV. Medications: Current Outpatient Medications Medication Sig Dispense Refill furosemide (LASIX) 40 mg tablet Take 1 tablet by mouth every other day. metoprolol succinate ER (TOPROL XL) 100 mg Take 1 tablet by mouth once daily. OTC PRODUCT Take 1 tablet by mouth twice daily. PreserVision atorvastatin (LIPITOR) 40 mg tablet Take 1 tablet by mouth daily at bedtime. For cholesterol. VA medication. lisinopril (ZESTRIL, PRINIVIL) 40 mg tablet Take 1 tablet by mouth once daily. VA medication. CPAP Initiate CPAP @ 6 cm of water with humidification. Mask (per patient preference) optional chin strap (if indicated) , filters, tubing, humidifier and lifetime supplies. 1 Each 0 tamsulosin (FLOMAX) 0.4 mg Take 1 capsule by mouth daily at bedtime. 30 capsule 2 apixaban (ELIQUIS) 5 mg tab(s) Take 5 mg by mouth twice daily. finasteride (PROSCAR) 5 mg tablet Take 1 tablet by mouth once daily. VA medication. COMPOUNDED PRESCRIPTION CPAP mask, tubing, and supplies. Dx: ICD9: 327.23, ICD10: G47.33 1 Each 0 COMPOUNDED PRESCRIPTION replacment cpap machine with heated humifier, replacemnt mask and supplies. set presssure at 6 cm and H2o. ISAAC dx. 1 Each 11 MULTIVITAMIN ORAL TAB Take one(1) tablet daily. 0 No current facility-administered medications for this visit. ROS ROS: His ROS was positive for that mentioned in the HPI. Otherwise a 10-point ROS was completed and was negative. ALLERGIES No Active Allergies Past Medical History: PAST MEDICAL HISTORY Diagnosis Date Acquired left foot drop 1998 Atrial fibrillation (HCC) 04/29/2020 Diverticulosis of colon (without mention of hemorrhage) 04/05/2005 Herniated lumbar intervertebral disc 1998 Left foot drop Hydrocele, bilateral 06/20/2022 Obstructive sleep apnea 08/16/2010 Pure hypercholesterolemia 04/05/2005 SLEEP APNEA NOS 12/29/2008 Wearing CPAP 8 hours a night as of 01-03 Last sleep study about age 70 Unspecified essential hypertension 04/05/2005 Unspecified hyperplasia of prostate without urinary obstruction and other lower urinary tract symptoms (LUTS) 05/21/2010 Family History: FAMILY HISTORY Problem Relation Age of Onset Hypertension Mother dec. age 88 Heart Father dec. age 83, CHF Diabetes Father None Sister Sister diagnosed with AD 2 years ago Social History: Social History Tobacco Use Smoking status: Former Current packs/day: 0.00 Average packs/day: 0.5 packs/day for 20.0 years (10.0 ttl pk-yrs) Types: Cigarettes Start date: 08/28/1957 Quit date: 08/28/1977 Years since quittin.8 Smokeless tobacco: Never Substance Use Topics Alcohol use: Yes Alcohol/week: 3.3 standard drinks of alcohol Types: 2 Cans of Beer (12oz), 1 Martini/Manhattan Drinks per week Drug use: No Never a heavy drinker Objective 06/28/24 0817 BP: 133/66 BP Site: Right Arm BP Position: Sitting BP Cuff Size: Regular Adult Pulse: (!) 58 SpO2: 97% Weight: 88 kg (194 lb 0.1 oz) Height: 177.8 cm (5' 10) Physical Examination General Appearance: Well appearing, alert, in no acute distress, well-hydrated, well nourished. Head: Normocephalic Neck: Supple Heart: RRR Peripheral Pulses: Normal Neurologic Examination Mental Status: He is alert. He is fully oriented. Attention is intact. Recent and remote memory is intact. Language shows normal comprehension and fluency. Praxis is normal. Affect is appropriate. Cranial Nerves: Pupils are equal and reactive to light. Extraocular movements show full and smooth pursuits. No nystagmus. Funduscopic exam shows sharp optic discs and normal vasculature. Visual brothers are full to confrontation. Facial sensation is intact. Facial activation is symmetric. Hearing is intact to conversation. There is no hypomimia. There is no hypophonia. There is no dysarthria. Tongue is midline. Palate elevates symmetrically. Shoulder shrug is normal. Motor: Muscle bulk is normal. Rapid alternating movements are normal. Left DF 4+/5, LUE 4+/5 Subtle LUE bradykinesia, mod LLE bradykinesia, none on right, no rigidity. Sensory: Vibration absent feet normal ankles Reflex: Biceps and brachioradialis is 2+ bilaterally. Patellar reflex minimal / possibly surgically absent. Achilles 0 bilaterally. Coordination: Finger to nose is smooth without ataxia. Gait/station: Stooped at low back, favors right leg, reduced foot clearance. DATA REVIEWED Actual films/image/tracing reviewed and summarized as follows: MRI L-spine 01/24/24 severe central stenosis L1-2 MRI C-spine 01/24/24 mild-mod central stenosis without cord compression MRI Brain 12/18/23 global atrophy, more notable in bilateral hippocampi / temporal lobes Old records reviewed and summarized as follows: Reviewed neurology referral records [facility] 01/19/24 1. The residuals of an old intraspinal canal lesion (ie: motor radiculopathy) at the left L5 root or segment, moderate to severe in degree electrically. 2. An active/ongoing on remote/chronic intraspinal canal lesion (ie: motor radiculopathy) at the left S1 root or segment, mild in degree electrically. 3. The residuals of an old intraspinal canal lesion (ie: motor radiculopathy) at the left C8 root or segment, mild in degree electrically. 4. Evidence of a left median mononeuropathy at or distal to the wrist (ie: carpal tunnel syndrome), mild in degree electrically. 5. In the setting of #1 and 2 above, an axonal large fiber polyneuropathy cannot be reliably determined on today's study as the absent sensory responses in the lower limb could be normal for a patient of this B12 349, SPEP neg, ESR 5, CRP neg, MMA 0.17 Assessment/Plan Assessment & Plan: Elyse Maloney is a 88 year old ambidextrous male with a history of Afib and HTN who presents for evaluation of gait impairment. His examination demonstrates numbness in feet, decreased LE reflexes, stooped posture at back, and multifactorial gait impairment. We discussed his presentation. Some mild parkinsonian signs but nothing definitive. He has severe stenosis L1-2 which is compressing the lower cord / nerve roots at that level, probably the biggest source of his gait impairment. Will look at him in a year to see if parkinsonism is evolving or just related to age / back. He should return to see me in 12 months. Marlene Oliveira MD [facility] Neurology documented in this encounter [facility] 05-22-2024 Instructions Marsha Arias PA-C - 05/22/2024 4:08 PM EDT Consult to movement (Dr. Oliveira) Use a walker to get around, avoid steps. Follow up after movement consult documented in this encounter [facility] 05-22-2024 Note HNO ID: [id number] Author: MARSHA ARIAS PA-C Service: ? Author Type: Physician Technical Staff Assistant Type: Progress Notes Filed: 05/22/2024 16:37 Note Text: ESTABLISHED PATIENT VISIT Last visit: 01/26/24 ASSESSMENT/PLAN: 1. Unsteadiness on feet - ICD9: 781.2, ICD10: R26.81 (primary diagnosis) 2. Spinal stenosis of lumbar region, unspecified whether neurogenic claudication present - ICD9: 724.02, ICD10: M48.061 3. Cervical stenosis of spinal canal - ICD9: 723.0, ICD10: M48.02 4. Orthostatic dizziness - ICD9: 780.4, ICD10: R42 Patient with persistent orthostatic dizziness. Described as an unsteadiness, denies any presyncope or room spinning sensation. MRI of the brain shows no significant etiology, EMG showed significant and diffuse lumbar radiculopathy, difficulty assessing presence of neuropathy. Patient was found to have low B12 level and has been supplementing this, is unsure if there is any benefit. MRI of the cervical and lumbar spine show significant degeneration, both with central stenosis as well as foraminal stenosis. Did refer to spine, but patient deferring this as he has no interest in future surgeries. Discussed referral to physical therapy for both dizziness, formal stenosis in the cervical and lumbar region. Patient is agreeable and will schedule this today. Patient without any recent falls, no bowel bladder changes or saddle anesthesia. Encouraged supplementing B12 for 6 months and then will redraw at that time. Encouraged conservative therapy including water intake, slow transitions from sitting to standing. No new symptoms or concerns at this time that would warrant additional workup. Patient and family agreeable to treatment plan of care this time, questions were answered. Patient follow-up in 3 months or sooner should any symptoms change or worsen. Marsha Arias PA-C CHIEF COMPLAINT: follow up HISTORY OF PRESENT ILLNESS: Elyse Maloney is a 88 year old male, There were no vitals taken for this visit. with a PMH significant for A-fib on Eliquis, hypertension, hyperlipidemia, CAD, ISAAC . Last seen on 01/26/24 for unsteadiness, dizziness. MRI brain normal, did have low B12 and lumbar radiculopathy. MRI of the cervical and lumbar spine showing significant degeneration in the lumbar spine. Deferred spinal referral due to not wanting surgeries. PCP would like referral to movement due to concerns for atypical parkinsonism. Patient presents with his for follow-up appointment. Notes that he has had 2 falls since last appointment, first of which was when he was at a baseball game, went to step down from his seat and did not realize there was a step missing and he fell onto his left side injuring his ribs and left upper extremity. Did not hit his head. Had a second fall on February 28 when he was at his daughter's house and tripped causing him to fall forward and hitting his head. Due to being on Eliquis he was sent to the emergency department where CT of the head was negative at that time. He has not fallen since, but does have difficulty His feet which is very concerning to his . She is concerned that he is going to fall again, notes he goes up and down stairs frequently and she does not feel comfortable with him doing this. Uses a walking cane to get around the house, does have a walker but does not like to use it. Did go to physical therapy and felt his legs improved in strength but was unsure if it washelpful for his gait. Of note, still compliant with B12 supplementation. At Reports primary concern today is Parkinson's disease. Saw primary care and they are concerned that gait abnormality was secondary to parkinsonism. Patient without any history of tremor, no REM sleep disorder, no constipation, no positional lightheadedness orthostatic symptoms, no family history of parkinsonism. No micrographia, hallucinations, no voice change. Patient denies any apathy, notes that he is going out with family doing things he likes to do. However, does note that he used to like doing puzzles but no longer does this more. Does report some anosmia over the last few years, this was just brought to his 's attention when she asked him if something tasted different. He states that he would be able to tell her and believes this has been the case for the last few years. Also notes he was exposed to pesticides as he grew up [place] a farm when he was younger. REVIEW OF SYSTEMS GENERAL:No weight loss, malaise or fevers. HEENT:Negative for frequent or significant headaches, No changes in hearing or vision, no nose bleeds or other nasal problems NECK:Negative for lumps, goiter, pain and significant neck swelling RESPIRATORY: Negative for cough, wheezing or shortness of breath. CARDIOVASCULAR: Negative for chest pain, leg swelling or palpitations. GASTROINTESTINAL: Negative for abdominal discomfort, blood in stools or black stools or change in bowel habits GENITOURINARY: (more content not included)... [facility] 05-22-2024 History of Present illness Narrative ESTABLISHED PATIENT VISIT Last visit: 01/26/24 ASSESSMENT/PLAN: 1. Unsteadiness on feet - ICD9: 781.2, ICD10: R26.81 (primary diagnosis) 2. Spinal stenosis of lumbar region, unspecified whether neurogenic claudication present - ICD9: 724.02, ICD10: M48.061 3. Cervical stenosis of spinal canal - ICD9: 723.0, ICD10: M48.02 4. Orthostatic dizziness - ICD9: 780.4, ICD10: R42 Patient with persistent orthostatic dizziness. Described as an unsteadiness, denies any presyncope or room spinning sensation. MRI of the brain shows no significant etiology, EMG showed significant and diffuse lumbar radiculopathy, difficulty assessing presence of neuropathy. Patient was found to have low B12 level and has been supplementing this, is unsure if there is any benefit. MRI of the cervical and lumbar spine show significant degeneration, both with central stenosis as well as foraminal stenosis. Did refer to spine, but patient deferring this as he has no interest in future surgeries. Discussed referral to physical therapy for both dizziness, formal stenosis in the cervical and lumbar region. Patient is agreeable and will schedule this today. Patient without any recent falls, no bowel bladder changes or saddle anesthesia. Encouraged supplementing B12 for 6 months and then will redraw at that time. Encouraged conservative therapy including water intake, slow transitions from sitting to standing. No new symptoms or concerns at this time that would warrant additional workup. Patient and family agreeable to treatment plan of care this time, questions were answered. Patient follow-up in 3 months or sooner should any symptoms change or worsen. Marsha Arias PA-C CHIEF COMPLAINT: follow up HISTORY OF PRESENT ILLNESS: Elyse Maloney is a 88 year old male, There were no vitals taken for this visit. with a PMH significant for A-fib on Eliquis, hypertension, hyperlipidemia, CAD, ISAAC . Last seen on 01/26/24 for unsteadiness, dizziness. MRI brain normal, did have low B12 and lumbar radiculopathy. MRI of the cervical and lumbar spine showing significant degeneration in the lumbar spine. Deferred spinal referral due to not wanting surgeries. PCP would like referral to movement due to concerns for atypical parkinsonism. Patient presents with his for follow-up appointment. Notes that he has had 2 falls since last appointment, first of which was when he was at a baseball game, went to step down from his seat and did not realize there was a step missing and he fell onto his left side injuring his ribs and left upper extremity. Did not hit his head. Had a second fall on February 28 when he was at his daughter's house and tripped causing him to fall forward and hitting his head. Due to being on Eliquis he was sent to the emergency department where CT of the head was negative at that time. He has not fallen since, but does have difficulty His feet which is very concerning to his . She is concerned that he is going to fall again, notes he goes up and down stairs frequently and she does not feel comfortable with him doing this. Uses a walking cane to get around the house, does have a walker but does not like to use it. Did go to physical therapy and felt his legs improved in strength but was unsure if it was helpful for his gait. Of note, still compliant with B12 supplementation. At Reports primary concern today is Parkinson's disease. Saw primary care and they are concerned that gait abnormality was secondary to parkinsonism. Patient without any history of tremor, no REM sleep disorder, no constipation, no positional lightheadedness orthostatic symptoms, no family history of parkinsonism. No micrographia, hallucinations, no voice change. Patient denies any apathy, notes that he is going out with family doing things he likes to do. However, does note that he used to like doing puzzles but no longer does this more. Does report some anosmia over the last few years, this was just brought to his 's attention when she asked him if something tasted different. He states that he would be able to tell her and believes this has been the case for the last few years. Also notes he was exposed to pesticides as he grew up on a farm when he was younger. REVIEW OF SYSTEMS GENERAL:No weight loss, malaise or fevers. HEENT:Negative for frequent or significant headaches, No changes in hearing or vision, no nose bleeds or other nasal problems NECK:Negative for lumps, goiter, pain and significant neck swelling RESPIRATORY: Negative for cough, wheezing or shortness of breath. CARDIOVASCULAR: Negative for chest pain, leg swelling or palpitations. GASTROINTESTINAL: Negative for abdominal discomfort, blood in stools or black stools or change in bowel habits GENITOURINARY: No history of dysuria, frequency or incontinence MUSCULOSKELETAL: Negative for joint pain or swelling, back pain or muscle pain. NEUROLOGIC:Negative for focal numbness or weakness, headaches and dizziness or syncope, vision changes, speech/languag changes - EXCEPT that as per HPI above. SKIN:Negative for lesions, rash, and itching. PSYCHIATRIC: Negative for sleep disturbance, mood disorder and recent psychosocial stressors. HEMATOLOGIC/LYMPHATIC/IMMUNOLOGIC: Negative for prolonged bleeding, bruising easily or swollen nodes. ENDOCRINE: Negative for cold or heat intolerance, polyuria, polydipsia and goiter. The remainder of the ROS was reviewed and is negative. LAB/IMAGING: Those performed since patient's last visit have been reviewed. none MEDICATIONS: furosemide (LASIX) 40 mg tablet Take 1 tablet by mouth every other day. metoprolol succinate ER (TOPROL XL) 100 mg Take 1 tablet by mouth once daily. OTC PRODUCT Take 1 tablet by mouth twice daily. PreserVision atorvastatin (LIPITOR) 40 mg tablet Take 1 tablet by mouth daily at bedtime. For cholesterol. VA medication. lisinopril (ZESTRIL, PRINIVIL) 40 mg tablet Take 1 tablet by mouth once daily. VA medication. CPAP Initiate CPAP @ 6 cm of water with humidification. Mask (per patient preference) optional chin strap (if indicated) , filters, tubing, humidifier and lifetime supplies. tamsulosin (FLOMAX) 0.4 mg Take 1 capsule by mouth daily at bedtime. apixaban (ELIQUIS) 5 mg tab(s) Take 5 mg by mouth twice daily. finasteride (PROSCAR) 5 mg tablet Take 1 tablet by mouth once daily. VA medication. COMPOUNDED PRESCRIPTION CPAP mask, tubing, and supplies. Dx: ICD9: 327.23, ICD10: G47.33 COMPOUNDED PRESCRIPTION replacment cpap machine with heated humifier, replacemnt mask and supplies. set presssure at 6 cm and H2o. ISAAC dx. MULTIVITAMIN ORAL TAB Take one(1) tablet daily. HISTORIES PAST MEDICAL HISTORY Diagnosis Date Acquired left foot drop 1998 Atrial fibrillation (HCC) 04/29/2020 Diverticulosis of colon (without mention of hemorrhage) 04/05/2005 Herniated lumbar intervertebral disc 1998 Left foot drop Hydrocele, bilateral 06/20/2022 Obstructive sleep apnea 08/16/2010 Pure hypercholesterolemia 04/05/2005 SLEEP APNEA NOS 12/29/2008 Wearing CPAP 8 hours a night as of 01-03 Last sleep study about age 70 Unspecified essential hypertension 04/05/2005 Unspecified hyperplasia of prostate without urinary obstruction and other lower urinary tract symptoms (LUTS) 05/21/2010 FAMILY HISTORY Problem Relation Age of Onset Hypertension Mother dec. age 88 Heart Father dec. age 83, CHF Diabetes Father None Sister SOCIAL HISTORY Social History Tobacco Use Smoking status: Former Current packs/day: 0.00 Average packs/day: 0.5 packs/day for 20.0 years (10.0 ttl pk-yrs) Types: Cigarettes Start date: 08/28/1957 Quit date: 08/28/1977 Years since quittin.7 Smokeless tobacco: Never Substance Use Topics Alcohol use: Yes Alcohol/week: 3.3 standard drinks of alcohol Types: 2 Cans of Beer (12oz), 1 Martini/Manhattan Drinks per week Drug use: No PHYSICAL EXAMINATION BP 149/80 Pulse (!) 56 Resp 16 Wt 85.8 kg (189 lb 3.2 oz) SpO2 97% BMI 28.77 kg/m GENERAL EXAM: General appearance: NAD, pleasant. HEENT: NC/AT, nasal congestion absent, no oral lesions, membranes moist. NECK: No masses, supple. Lungs: Breathing comfortably Extr: Moves all extremities without difficulty Skin: Cool to touch. No rash. NEUROLOGICAL EXAM: General: Awake, alert, oriented x3 (person,place,time), speech fluent, no dysarthria; comprehension, naming, repetition intact. Short and shelter memory intact. CN: PERRL, EOMI and without nystagmus, VFF to confrontation, facial sensation and strength are normal and symmetric, hearing is intact to finger rub bilaterally, palate and tongue movements are intact and symmetric. SCM and trapezius strength normal. Motor: No rigidity present, normal bulk. 4/5 strength of the left lower extremity with abduction. Reflexes: poor reflexes in lower extremities. 1/4 to upper extremities. Coordination: No tremors. Left upper and lower extremity slightly slower and rapid alternating movements with certain movements including tapping of the left toes and waving of the left hand, however normal with tapping the entire left foot and finger tapping Sensation: Intact to light touch Gait: Gait is slightly wide-based, right foot is slightly outturned, shuffled gait. Complete to turn in about 2-3 steps, normal arm swing. Negative retropulsion Assessment and Plan: ASSESSMENT/PLAN: 1. Abnormality of gait - ICD9: 781.2, ICD10: R26.9 (primary diagnosis) 2. Orthostatic dizziness - ICD9: 780.4, ICD10: R42 3. Abnormal gait - ICD9: 781.2, ICD10: R26.9 4. Neuropathy - ICD9: 355.9, ICD10: G62.9 5. Spinal stenosis of lumbar region without neurogenic claudication - ICD9: 724.02, ICD10: M48.061 Patient with continued gait normality, shuffled, wide-based and experiencing frequent falls. Found to have moderate to severe lumbar disease but deferred any spinal referral due to lack of interest in surgeries. Patient had 2 falls since last appointment, 1 was missing a step at a baseball game and the second was tripping while walking through his daughters house. Walks with a walking stick at home, is very concerned because he goes up and down the stairs multiple times a day and does not feel safe. Etiology for gait abnormality is unclear, possibly multifactoral. Lumbar stenosis likely contributing, there was some concern for neuropathy, but this was unable to be definitively ruled in or out on EMG testing. Patient's very concerned about possible Parkinson's disease. Patient does have some anosmia but otherwise no other significant signs of Parkinson's including REM sleep abnormalities, constipation, micrographia, hallucinations, dementia, tremor, positional lightheadedness. Does have abnormal gait noted above, slight bradykinesia possibly on the left upper and lower extremity with certain movements. Due to their concern, will refer to movement for further evaluation. In the meantime, encourage patient to use a walker at home as this will likely help with balance and moving around. Additionally, discussed the danger of stairs and avoiding them if possible. Encouraged continued physical exercise to maintain strength. Patient and agreeable to treatment plan of care at this time, questions were answered. Patient to follow-up in 3 to 4 months or sooner. Marsha Arias PA-C I spent a total of 45 minutes on the date of the service which included preparing to see the patient, [id number] patient care, completing clinical documentation, obtaining and/or reviewing separately obtained history, performing a medically appropriate examination, counseling and educating the patient/family/caregiver, and ordering medications, tests, or procedures. This document has been created with the use of voice recognition technology. It may contain inaccuracies: (e.g. misspellings, inaccurate syntax or word sense) that have escaped review. documented in this encounter [facility] 05-20-2024 Note HNO ID: [id number] Author: ANG VICKERS MD Service: ? Author Type: Physician Type: Progress Notes Filed: 05/20/2024 13:41 Note Text: This note was created using [employer]. Subjective Elyse Maloney is a 88 year old male. He continued to have gait and stance unsteadiness and falls. He had no dizziness. 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 He was seen in the ED for closed head injury 02/27/24. He fell and went to the local urgent care 05/05/24 where he had contusion of the left knee and left chest. Review of Systems Constitutional: Negative for fatigue and fever. Respiratory: Negative for shortness of breath. Cardiovascular: Positive for leg swelling. Negative for chest pain and palpitations. Musculoskeletal: Positive for gait problem. Neurological: Positive for weakness. Negative for dizziness, tremors and headaches. 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) Obstructive Sleep Apnea Other Seborrheic Keratosis Vertebral Artery Stenosis, Left Atrial Fibrillation (Hcc) Coronary Atherosclerosis Impaired Fasting Glucose Abnormal Gait Spinal Stenosis of Lumbar Region Unsteadiness On Feet Cervical Stenosis of Spinal Canal At Risk for Falling Social History Tobacco Use Smoking status: Former Current packs/day: 0.00 Average packs/day: 0.5 packs/day for 20.0 years (10.0 ttl pk-yrs) Types: Cigarettes Start date: 08/28/1957 Quit date: 08/28/1977 Years since quittin.7 Smokeless tobacco: Never Substance Use Topics Alcohol use: Yes Alcohol/week: 3.3 standard drinks of alcohol Types: 2 Cans of Beer (12oz), 1 Martini/Manhattan Drinks per week Drug use: No Current Outpatient Medications Medication Sig metoprolol succinate ER (TOPROL XL) 100 mg Take 75 mg by mouth once daily. OTC PRODUCT Take 1 tablet by mouth twice daily. PreserVision atorvastatin (LIPITOR) 40 mg tablet Take 1 tablet by mouth daily at bedtime. For cholesterol. VA medication. furosemide (LASIX) 20 mg tablet Take 1 tablet by mouth three times a week. Mon, Mon, Monday. VA medication. (Patient taking differently: Take 40 mg by mouth three times a week. Mon, Mon, Monday. VA medication.) lisinopril (ZESTRIL, PRINIVIL) 40 mg tablet Take 1 tablet by mouth once daily. VA medication. CPAP Initiate CPAP @ 6 cm of water with humidification. Mask (per patient preference) optional chin strap (if indicated) , filters, tubing, humidifier and lifetime supplies. tamsulosin (FLOMAX) 0.4 mg Take 1 capsule by mouth daily at bedtime. apixaban (ELIQUIS) 5 mg tab(s) Take 5 mg by mouth twice daily. finasteride (PROSCAR) 5 mg tablet Take 1 tablet by mouth once daily. VA medication. COMPOUNDED PRESCRIPTION CPAP mask, tubing, and supplies. Dx: ICD9: 327.23, ICD10: G47.33 COMPOUNDED PRESCRIPTION replacment cpap machine with heated humifier, replacemnt mask and supplies. set presssure at 6 cm and H2o. ISAAC dx. MULTIVITAMIN ORAL TAB Take one(1) tablet daily. No current facility-administered medications for this visit. Objective BP 151/76 (BP Site: Left Arm, BP Position: Sitting, BP Cuff Size: Large Adult) Pulse 72 Temp 36 ?C (96.8 ?F) (Temporal) Resp 12 Wt 85.6 kg (188 lb 11.4 oz) BMI 28.69 kg/m? Physical Exam Constitutional: General: He is not in acute distress. HENT: Head: Atraumatic. Cardiovascular: Rate and Rhythm: Normal rate and regular rhythm. Heart sounds: No murmur heard. No gallop. Pulmonary: Breath sounds: Normal breath sounds. Musculoskeletal: Right lower le+ Pitting Edema present. Left lower le+ Pitting Edema present. Neurological: General: No focal deficit present. Mental Status: He is alert. Motor: Abnormal muscle tone present. No tremor. Gait: Gait abnormal. Assessment and Plan 1. At risk for falling - ICD9: V15.88, ICD10: Z91.81 (primary diagnosis) - I strongly recommended using his preferred assistive device (walking stick) at all times. - I will recommended movement disorder clinic to neurology provider. 2. Need for influenza vaccination - ICD9: V04.81, ICD10: Z23 - INFLUENZA VACCINE, PRSV FREE, AGE 65+ YR, HIGH DOSE, TRIVALENT (FLUZONE HIGH-DOSE) 3. Unsteadiness on feet - ICD9: 781.2, ICD10: R26.81 See #1. 4. Longstanding persistent atrial fibrillation (HCC) - ICD9: 427.31, ICD10: I48.11 Controlled. 5. Essential hypertension - ICD9: 401.9, ICD10: I10 Fair. - Continue per cardiology. Medication list updated per VA information. - FUROSEMIDE 40 MG every other day. 6. Atherosclerosis of [place] coronary artery of [place] heart without angina pectoris - ICD9: 414.01, ICD10: I25.10 Medication list updated. - METOPROLOL SUCCINATE ER 100 MG TABLET,EXTENDED RELEASE 24 HR 7. Screening for depression - ICD9: V79.0, ICD10: Z13.31 - DEPRESSION (more content not included)... [facility] 05-20-2024 History of Present illness Narrative This note was created using [employer]. Subjective Elyse Maloney is a 88 year old male. He continued to have gait and stance unsteadiness and falls. He had no dizziness. 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 He was seen in the ED for closed head injury 02/27/24. He fell and went to the local urgent care 05/05/24 where he had contusion of the left knee and left chest. Review of Systems Constitutional: Negative for fatigue and fever. Respiratory: Negative for shortness of breath. Cardiovascular: Positive for leg swelling. Negative for chest pain and palpitations. Musculoskeletal: Positive for gait problem. Neurological: Positive for weakness. Negative for dizziness, tremors and headaches. 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) Obstructive Sleep Apnea Other Seborrheic Keratosis Vertebral Artery Stenosis, Left Atrial Fibrillation (Hcc) Coronary Atherosclerosis Impaired Fasting Glucose Abnormal Gait Spinal Stenosis of Lumbar Region Unsteadiness On Feet Cervical Stenosis of Spinal Canal At Risk for Falling Social History Tobacco Use Smoking status: Former Current packs/day: 0.00 Average packs/day: 0.5 packs/day for 20.0 years (10.0 ttl pk-yrs) Types: Cigarettes Start date: 08/28/1957 Quit date: 08/28/1977 Years since quittin.7 Smokeless tobacco: Never Substance Use Topics Alcohol use: Yes Alcohol/week: 3.3 standard drinks of alcohol Types: 2 Cans of Beer (12oz), 1 Martini/Manhattan Drinks per week Drug use: No Current Outpatient Medications Medication Sig metoprolol succinate ER (TOPROL XL) 100 mg Take 75 mg by mouth once daily. OTC PRODUCT Take 1 tablet by mouth twice daily. PreserVision atorvastatin (LIPITOR) 40 mg tablet Take 1 tablet by mouth daily at bedtime. For cholesterol. VA medication. furosemide (LASIX) 20 mg tablet Take 1 tablet by mouth three times a week. Mon, Mon, Monday. VA medication. (Patient taking differently: Take 40 mg by mouth three times a week. Mon, Mon, William. VA medication.) lisinopril (ZESTRIL, PRINIVIL) 40 mg tablet Take 1 tablet by mouth once daily. VA medication. CPAP Initiate CPAP @ 6 cm of water with humidification. Mask (per patient preference) optional chin strap (if indicated) , filters, tubing, humidifier and lifetime supplies. tamsulosin (FLOMAX) 0.4 mg Take 1 capsule by mouth daily at bedtime. apixaban (ELIQUIS) 5 mg tab(s) Take 5 mg by mouth twice daily. finasteride (PROSCAR) 5 mg tablet Take 1 tablet by mouth once daily. VA medication. COMPOUNDED PRESCRIPTION CPAP mask, tubing, and supplies. Dx: ICD9: 327.23, ICD10: G47.33 COMPOUNDED PRESCRIPTION replacment cpap machine with heated humifier, replacemnt mask and supplies. set presssure at 6 cm and H2o. ISAAC dx. MULTIVITAMIN ORAL TAB Take one(1) tablet daily. No current facility-administered medications for this visit. Objective BP 151/76 (BP Site: Left Arm, BP Position: Sitting, BP Cuff Size: Large Adult) Pulse 72 Temp 36 C (96.8 F) (Temporal) Resp 12 Wt 85.6 kg (188 lb 11.4 oz) BMI 28.69 kg/m Physical Exam Constitutional: General: He is not in acute distress. HENT: Head: Atraumatic. Cardiovascular: Rate and Rhythm: Normal rate and regular rhythm. Heart sounds: No murmur heard. No gallop. Pulmonary: Breath sounds: Normal breath sounds. Musculoskeletal: Right lower le+ Pitting Edema present. Left lower le+ Pitting Edema present. Neurological: General: No focal deficit present. Mental Status: He is alert. Motor: Abnormal muscle tone present. No tremor. Gait: Gait abnormal. Assessment and Plan 1. At risk for falling - ICD9: V15.88, ICD10: Z91.81 (primary diagnosis) - I strongly recommended using his preferred assistive device (walking stick) at all times. - I will recommended movement disorder clinic to neurology provider. 2. Need for influenza vaccination - ICD9: V04.81, ICD10: Z23 - INFLUENZA VACCINE, PRSV FREE, AGE 65+ YR, HIGH DOSE, TRIVALENT (FLUZONE HIGH-DOSE) 3. Unsteadiness on feet - ICD9: 781.2, ICD10: R26.81 See #1. 4. Longstanding persistent atrial fibrillation (HCC) - ICD9: 427.31, ICD10: I48.11 Controlled. 5. Essential hypertension - ICD9: 401.9, ICD10: I10 Fair. - Continue per cardiology. Medication list updated per [facility] information. - FUROSEMIDE 40 MG every other day. 6. Atherosclerosis of [place] coronary artery of [place] heart without angina pectoris - ICD9: 414.01, ICD10: I25.10 Medication list updated. - METOPROLOL SUCCINATE ER 100 MG TABLET,EXTENDED RELEASE 24 HR 7. Screening for depression - ICD9: V79.0, ICD10: Z13.31 - DEPRESSION SCREENING 8. Encounter for screening examination for other mental health and behavioral disorders - ICD9: V79.8, ICD10: Z13.39 - ANXIETY SCREENING Ang Vickers MD documented in this encounter [facility] 04-05-2024 Note HNO ID: [id number] Author: DOMINICK CAMPOS, PT Service: ? Author Type: Physical Therapist Type: Progress Notes Filed: 04/05/2024 09:17 Note Text: Episode Visit Count: 6 Therapist That Will Accept/Oversee The Plan Of Care: Dominick Campos Start of Care Date: 02/07/24 Onset Date: 08/28/23 Plan of Care Certification Date: 02/07/24 Next Certification Due Date: 04/08/24 REHABILITATION AND SPORTS THERAPY PHYSICAL THERAPY DISCONTINUANCE OF CARE PLAN OF CARE UPDATE: Assessment: Elyse Maloney is discontinued from Physical Therapy services due to goal achievement.. Patient was seen for 6 visits from Start of Care Date: 02/07/24 to 04/05/2024 and treatment included: Therapeutic exercise and Neuromuscular re-education. Goals updated on 04/03/2024. Goals for Episode of Care: created on 02/07/24 through 04/08/24 Patient will report no falls. Met Improve score on Timed Up and Go Test to 10 seconds to reflect decreased fall risk. Met Improve score on 30 Second Chair Stand to 12 repetitions to reflect decreased fall risk. Met Improve performance on 4 Stage Balance Test to 10 seconds in SLS and tandem to reflect decreased fall risk. Met [place] in home exercise program including cardiovascular exercise. Met SUBJECTIVE: Patient doing well overall. He feels he has gotten stronger and more steady, but still feels his balance is off from where he would like it as prolonged standing causes him to feel off. Pain: Pain Pain Level: 0 PROMIS Scales 04/02/2024 03/05/2024 02/05/2024 Higher is Better Phys Func - Score 42 (mild dysfunction) 38 (moderate dysfunction) 38 (moderate dysfunction) Phys Func - Percentile 21 12 12 Self-Eff Symptom - Score 48 (Average) 50 (Average) 50 (Average) Self-Eff Symptom - Percentile 42 50 50 T-scores: mean of general population = 50. 5 points is clinically meaningfully difference Percentiles provide an indication of how the patient's score ranks in relation to the general population. Higher percentile rankings indicate better function/quality of life. 50th percentile is the average of the general population and indicates half of respondents had a worse score. OBJECTIVE MEASURES WITH LEVEL OF FUNCTION: LE Strength L Ankle Dorsiflexion (L4): 4+/5 L Ankle Plantarflexion Functional Strength (S1): 5 L Great Toes Extension (L5, S1): 4+/5 Functional Performance Test Results 30 Second Chair Stand Test: 13 reps Timed Up and Go (sec): 7.81 sec 4 Stage Balance Test Narrow base of support (sec): 30 sec Semi-tandem base of support (sec): 30 sec Tandem base of support (sec): 30 sec Single leg stance - right (sec): 20 sec Single leg stance - left (sec): 12 sec TREATMENT: Therapeutic Exercise: 1: SciFitseat 15 x5 min 2: Objective measures obtained 3: SL hip abduction 2x10/side 4: STS x13 5: Reviewed HEP Skilled Intervention: Patient was educated in proper exercise technique and purpose for exercises. Skilled judgment was used in selection of appropriate interventions. Provided written instruction for home exercise program to facilitate proper performance and compliance. Correct performance of therapeutic exercises was facilitated with verbal and visual cuing. Billing Therapeutic Exercise Treatment Minutes: 43 Skilled Treatment Time Minutes (timed and untimed codes): 43 Total Session Time (minutes): 43 Session Start Time : 814 Session Stop Time : 857 Dominick Campos PT [facility] 04-05-2024 History of Present illness Narrative Images from the original note were not included. Episode Visit Count: 6 Therapist That Will Accept/Oversee The Plan Of Care: Dominick Campos Start of Care Date: 02/07/24 Onset Date: 08/28/23 Plan of Care Certification Date: 02/07/24 Next Certification Due Date: 04/08/24 REHABILITATION AND SPORTS THERAPY PHYSICAL THERAPY DISCONTINUANCE OF CARE PLAN OF CARE UPDATE: Assessment: Elyse Maloney is discontinued from Physical Therapy services due to goal achievement.. Patient was seen for 6 visits from Start of Care Date: 02/07/24 to 04/05/2024 and treatment included: Therapeutic exercise and Neuromuscular re-education. Goals updated on 04/03/2024. Goals for Episode of Care: created on 02/07/24 through 04/08/24 Patient will report no falls. Met Improve score on Timed Up and Go Test to 10 seconds to reflect decreased fall risk. Met Improve score on 30 Second Chair Stand to 12 repetitions to reflect decreased fall risk. Met Improve performance on 4 Stage Balance Test to 10 seconds in SLS and tandem to reflect decreased fall risk. Met [place] in home exercise program including cardiovascular exercise. Met SUBJECTIVE: Patient doing well overall. He feels he has gotten stronger and more steady, but still feels his balance is off from where he would like it as prolonged standing causes him to feel off. Pain: Pain Pain Level: 0 PROMIS Scales 04/02/2024 03/05/2024 02/05/2024 Higher is Better Phys Func - Score 42 (mild dysfunction) 38 (moderate dysfunction) 38 (moderate dysfunction) Phys Func - Percentile 21 12 12 Self-Eff Symptom - Score 48 (Average) 50 (Average) 50 (Average) Self-Eff Symptom - Percentile 42 50 50 T-scores: mean of general population = 50. 5 points is clinically meaningfully difference Percentiles provide an indication of how the patient's score ranks in relation to the general population. Higher percentile rankings indicate better function/quality of life. 50th percentile is the average of the general population and indicates half of respondents had a worse score. OBJECTIVE MEASURES WITH LEVEL OF FUNCTION: LE Strength L Ankle Dorsiflexion (L4): 4+/5 L Ankle Plantarflexion Functional Strength (S1): 5 L Great Toes Extension (L5, S1): 4+/5 Functional Performance Test Results 30 Second Chair Stand Test: 13 reps Timed Up and Go (sec): 7.81 sec 4 Stage Balance Test Narrow base of support (sec): 30 sec Semi-tandem base of support (sec): 30 sec Tandem base of support (sec): 30 sec Single leg stance - right (sec): 20 sec Single leg stance - left (sec): 12 sec TREATMENT: Therapeutic Exercise: 1: SciFitseat 15 x5 min 2: Objective measures obtained 3: SL hip abduction 2x10/side 4: STS x13 5: Reviewed HEP Skilled Intervention: Patient was educated in proper exercise technique and purpose for exercises. Skilled judgment was used in selection of appropriate interventions. Provided written instruction for home exercise program to facilitate proper performance and compliance. Correct performance of therapeutic exercises was facilitated with verbal and visual cuing. Billing Therapeutic Exercise Treatment Minutes: 43 Skilled Treatment Time Minutes (timed and untimed codes): 43 Total Session Time (minutes): 43 Session Start Time : 814 Session Stop Time : 857 Dominick Campos PT Program_ID:[id number] Access Code: [email or web address] URL: [email or web address] Date: 04-03-2024 Prepared By: Dominick Campos Program Notes Exercises - Sidelying Hip Abduction - 1 x daily - 7 x weekly - 3 sets - 10 reps - Sit to Stand with Arms Crossed - 1 x daily - 7 x weekly - 3 sets - 10 reps - Heel Raises with Counter Support - 1 x daily - 7 x weekly - 3 sets - 10 reps - Standing Hip Abduction with Counter Support - 1 x daily - 7 x weekly - 3 sets - 10 reps - Seated Heel Toe Raises - 1 x daily - 7 x weekly - 3 sets - 10 reps - Supine Active Straight Leg Raise - 1 x daily - 7 x weekly - 3 sets - 10 reps - Heel Toe Raises with Counter Support - 1 x daily - 7 x weekly - 3 sets - 10 reps documented in this encounter [facility] 03-29-2024 Note HNO ID: [id number] Author: DOMINICK CAMPOS PT Service: ? Author Type: Physical Therapist Type: Progress Notes Filed: 03/29/2024 09:58 Note Text: Episode Visit Count: 5 Therapist That Will Accept/Oversee The Plan Of Care: Dominick Campos Start of Care Date: 02/07/24 Onset Date: 08/28/23 Plan of Care Certification Date: 02/07/24 Next Certification Due Date: 04/08/24 Patient Identified by Name and Date of : Yes REHABILITATION AND SPORTS THERAPY PHYSICAL THERAPY TREATMENT NOTE ASSESSMENT: Elyse Maloney tolerated the session with fatigue. He demonstrated difficulty with tandem walking on foam beams. The patient will continue to benefit from ongoing skilled physical therapy to progress toward set goals. PLAN FOR NEXT VISIT: PN SUBJECTIVE: Pt states that he is doing pretty good today. Pain: Pain Pain Level: 0 OBJECTIVE MEASURES WITH LEVEL OF FUNCTION: Pt challenged with STS with calf raise and had 1 bout of LOB with Min A provided at gait belt. TREATMENT: Therapeutic Exercise: 1: SciFitseat 12 x5 min (1:1 throughout. Subjective collected.) 2: SL hip abduction 2x10/side Skilled Intervention: Patient was educated in proper exercise technique and purpose for exercises. Skilled judgment was used in selection of appropriate interventions. Correct performance of therapeutic exercises was facilitated with verbal and visual cuing. Neuromuscular Re-Education: 1: Step ups on blue airex pad 2x10 B 2: NBOS x30 seconds 3: Semi-tandem stance x 30 seconds B 4: Tandem stance x 30 seconds B 5: Tandem walking on 2 foam beams with occasional tap on // bars x 2 rounds 6: Side stepping on 2 foam beams without use of UE x 2 passes each direction 7: STS with calf raise at each stand 2x10 (1 bout of LOB with Min A provided at gait belt.) Skilled Intervention: Skilled judgment used to assess appropriate program for balance and coordination activity. Ensured patient safety with use of gait belt. Billing Therapeutic Exercise Treatment Minutes: 10 Neuromuscular Re-Education Treatment Minutes: 31 Skilled Treatment Time Minutes (timed and untimed codes): 41 Total Session Time (minutes): 41 Session Start Time : 757 Session Stop Time : 838 Sonali Hoffman, JASPAL Campos, PT [facility] 03-29-2024 History of Present illness Narrative Episode Visit Count: 5 Therapist That Will Accept/Oversee The Plan Of Care: Dominick Campos Start of Care Date: 02/07/24 Onset Date: 08/28/23 Plan of Care Certification Date: 02/07/24 Next Certification Due Date: 04/08/24 Patient Identified by Name and Date of : Yes REHABILITATION AND SPORTS THERAPY PHYSICAL THERAPY TREATMENT NOTE ASSESSMENT: Elyse Maloney tolerated the session with fatigue. He demonstrated difficulty with tandem walking on foam beams. The patient will continue to benefit from ongoing skilled physical therapy to progress toward set goals. PLAN FOR NEXT VISIT: PN SUBJECTIVE: Pt states that he is doing pretty good today. Pain: Pain Pain Level: 0 OBJECTIVE MEASURES WITH LEVEL OF FUNCTION: Pt challenged with STS with calf raise and had 1 bout of LOB with Min A provided at gait belt. TREATMENT: Therapeutic Exercise: 1: SciFitseat 12 x5 min (1:1 throughout. Subjective collected.) 2: SL hip abduction 2x10/side Skilled Intervention: Patient was educated in proper exercise technique and purpose for exercises. Skilled judgment was used in selection of appropriate interventions. Correct performance of therapeutic exercises was facilitated with verbal and visual cuing. Neuromuscular Re-Education: 1: Step ups on blue airex pad 2x10 B 2: NBOS x30 seconds 3: Semi-tandem stance x 30 seconds B 4: Tandem stance x 30 seconds B 5: Tandem walking on 2 foam beams with occasional tap on // bars x 2 rounds 6: Side stepping on 2 foam beams without use of UE x 2 passes each direction 7: STS with calf raise at each stand 2x10 (1 bout of LOB with Min A provided at gait belt.) Skilled Intervention: Skilled judgment used to assess appropriate program for balance and coordination activity. Ensured patient safety with use of gait belt. Billing Therapeutic Exercise Treatment Minutes: 10 Neuromuscular Re-Education Treatment Minutes: 31 Skilled Treatment Time Minutes (timed and untimed codes): 41 Total Session Time (minutes): 41 Session Start Time : 757 Session Stop Time : 838 JASPAL Kilpatrick PT documented in this encounter [facility] 03-20-2024 Note HNO ID: [id number] Author: DOMINICK CAMPOS PT Service: ? Author Type: Physical Therapist Type: Progress Notes Filed: 03/20/2024 13:38 Note Text: Episode Visit Count: 4 Therapist That Will Accept/Oversee The Plan Of Care: Dominick Campos Start of Care Date: 02/07/24 Onset Date: 08/28/23 Plan of Care Certification Date: 02/07/24 Next Certification Due Date: 04/08/24 REHABILITATION AND SPORTS THERAPY PHYSICAL THERAPY TREATMENT NOTE ASSESSMENT: Elyse Maloney tolerated the session with fatigue and no issues. He demonstrated improvements in balance with cuing for hip flexion to clear hurdles vs hip circumduction, which was causing him to laterally lean and lose balance. The patient will continue to benefit from ongoing skilled physical therapy to progress toward set goals. PLAN FOR NEXT VISIT: Continue balance and exercise progression as tolerated SUBJECTIVE: Patient will be going on a fishing trip next week, feeling confident about his balance Pain: Pain Pain Level: 0 OBJECTIVE MEASURES WITH LEVEL OF FUNCTION: Min to CGA with gait belt for all balance exercises TREATMENT: Therapeutic Exercise: 1: SciFitseat 12 x5 min 2: STS 2x12 3: Standing hip abduction 2x10/side 4: SL hip abduction 2x10/side Skilled Intervention: Patient was educated in proper exercise technique and purpose for exercises. Skilled judgment was used in selection of appropriate interventions. Provided written instruction for home exercise program to facilitate proper performance and compliance. Correct performance of therapeutic exercises was facilitated with verbal, visual, and tactile cuing. Neuromuscular Re-Education: 1: Blue airex pad NBOS, semi tandem, EC and EO x30 sec each 2: Blue airex pad NBOS plus looking up and down, turns each side x10 each 3: Balance board taps x30 each way and static holds x30 sec each way 4: Taps on BOSU ball 2x10/side, cuing for 2 sec hold with taps 5: Step over forward and sideways 6 hurdles 4 passes (cuing for hip flexion to clear hurdles not hip circumduction) Skilled Intervention: Skilled judgment used to assess appropriate program for balance and coordination activity. Patient education as noted. Min to CGA with gait belt Billing Therapeutic Exercise Treatment Minutes: 10 Neuromuscular Re-Education Treatment Minutes: 29 Skilled Treatment Time Minutes (timed and untimed codes): 39 Total Session Time (minutes): 39 Session Start Time : 819 Session Stop Time : 858 Dominick Campos, PT [facility] 03-20-2024 History of Present illness Narrative Episode Visit Count: 4 Therapist That Will Accept/Oversee The Plan Of Care: Dominick Campos Start of Care Date: 02/07/24 Onset Date: 08/28/23 Plan of Care Certification Date: 02/07/24 Next Certification Due Date: 04/08/24 REHABILITATION AND SPORTS THERAPY PHYSICAL THERAPY TREATMENT NOTE ASSESSMENT: Elyse Maloney tolerated the session with fatigue and no issues. He demonstrated improvements in balance with cuing for hip flexion to clear hurdles vs hip circumduction, which was causing him to laterally lean and lose balance. The patient will continue to benefit from ongoing skilled physical therapy to progress toward set goals. PLAN FOR NEXT VISIT: Continue balance and exercise progression as tolerated SUBJECTIVE: Patient will be going on a fishing trip next week, feeling confident about his balance Pain: Pain Pain Level: 0 OBJECTIVE MEASURES WITH LEVEL OF FUNCTION: Min to CGA with gait belt for all balance exercises TREATMENT: Therapeutic Exercise: 1: SciFitseat 12 x5 min 2: STS 2x12 3: Standing hip abduction 2x10/side 4: SL hip abduction 2x10/side Skilled Intervention: Patient was educated in proper exercise technique and purpose for exercises. Skilled judgment was used in selection of appropriate interventions. Provided written instruction for home exercise program to facilitate proper performance and compliance. Correct performance of therapeutic exercises was facilitated with verbal, visual, and tactile cuing. Neuromuscular Re-Education: 1: Blue airex pad NBOS, semi tandem, EC and EO x30 sec each 2: Blue airex pad NBOS plus looking up and down, turns each side x10 each 3: Balance board taps x30 each way and static holds x30 sec each way 4: Taps on BOSU ball 2x10/side, cuing for 2 sec hold with taps 5: Step over forward and sideways 6 hurdles 4 passes (cuing for hip flexion to clear hurdles not hip circumduction) Skilled Intervention: Skilled judgment used to assess appropriate program for balance and coordination activity. Patient education as noted. Min to CGA with gait belt Billing Therapeutic Exercise Treatment Minutes: 10 Neuromuscular Re-Education Treatment Minutes: 29 Skilled Treatment Time Minutes (timed and untimed codes): 39 Total Session Time (minutes): 39 Session Start Time : 819 Session Stop Time : 858 Dominick Campos PT documented in this encounter [facility] 03-13-2024 Note HNO ID: [id number] Author: DOMINICK CAMPOS PT Service: ? Author Type: Physical Therapist Type: Progress Notes Filed: 03/13/2024 09:09 Note Text: Episode Visit Count: 3 Therapist That Will Accept/Oversee The Plan Of Care: Dominick Campos Start of Care Date: 02/07/24 Onset Date: 08/28/23 Plan of Care Certification Date: 02/07/24 Next Certification Due Date: 04/08/24 REHABILITATION AND SPORTS THERAPY PHYSICAL THERAPY TREATMENT NOTE ASSESSMENT: Elyse Maloney tolerated the session with no issues. He demonstrated improvements in balance exercise tolerance. The patient will continue to benefit from ongoing skilled physical therapy to progress toward set goals. PLAN FOR NEXT VISIT: Continue balance training progression. May try foam beams or hurdles SUBJECTIVE: Patient doing well today, no issues to report Pain: Pain Pain Level: 0 OBJECTIVE MEASURES WITH LEVEL OF FUNCTION: CGA to Ann with balance exercises today TREATMENT: Therapeutic Exercise: 1: SciFitseat 12 x5 min (1:1 entire time. Patient provided update and discussed his function and HEP) 2: STS 2x12 3: Standing hip abduction 2x10/side 4: SL hip abduction 2x10/side Skilled Intervention: Patient was educated in proper exercise technique and purpose for exercises. Skilled judgment was used in selection of appropriate interventions. Correct performance of therapeutic exercises was facilitated with verbal and visual cuing. Neuromuscular Re-Education: 1: NBOS 2: Semi tandem 3: Tandem stance 4: Blue airex pad NBOS, semi tandem, EC and EO x30 sec each 5: Blue airex pad NBOS plus looking up and down, turns each side x10 each 6: Balance board taps x30 each way and static holds x30 sec each way 7: Step over 2x4 x10/side 8: Taps on BOSU ball 2x10/side, cuing for 2 sec hold with taps Skilled Intervention: Skilled judgment used to assess appropriate program for balance and coordination activity. Ensured patient safety with use of gait belt Billing Therapeutic Exercise Treatment Minutes: 10 Neuromuscular Re-Education Treatment Minutes: 28 Skilled Treatment Time Minutes (timed and untimed codes): 38 Total Session Time (minutes): 38 Session Start Time : 819 Session Stop Time : 857 Dominick Campos PT [facility] 03-13-2024 History of Present illness Narrative Episode Visit Count: 3 Therapist That Will Accept/Oversee The Plan Of Care: Dominick Campos Start of Care Date: 02/07/24 Onset Date: 08/28/23 Plan of Care Certification Date: 02/07/24 Next Certification Due Date: 04/08/24 REHABILITATION AND SPORTS THERAPY PHYSICAL THERAPY TREATMENT NOTE ASSESSMENT: Elyse Maloney tolerated the session with no issues. He demonstrated improvements in balance exercise tolerance. The patient will continue to benefit from ongoing skilled physical therapy to progress toward set goals. PLAN FOR NEXT VISIT: Continue balance training progression. May try foam beams or hurdles SUBJECTIVE: Patient doing well today, no issues to report Pain: Pain Pain Level: 0 OBJECTIVE MEASURES WITH LEVEL OF FUNCTION: CGA to Ann with balance exercises today TREATMENT: Therapeutic Exercise: 1: SciFitseat 12 x5 min (1:1 entire time. Patient provided update and discussed his function and HEP) 2: STS 2x12 3: Standing hip abduction 2x10/side 4: SL hip abduction 2x10/side Skilled Intervention: Patient was educated in proper exercise technique and purpose for exercises. Skilled judgment was used in selection of appropriate interventions. Correct performance of therapeutic exercises was facilitated with verbal and visual cuing. Neuromuscular Re-Education: 1: NBOS 2: Semi tandem 3: Tandem stance 4: Blue airex pad NBOS, semi tandem, EC and EO x30 sec each 5: Blue airex pad NBOS plus looking up and down, turns each side x10 each 6: Balance board taps x30 each way and static holds x30 sec each way 7: Step over 2x4 x10/side 8: Taps on BOSU ball 2x10/side, cuing for 2 sec hold with taps Skilled Intervention: Skilled judgment used to assess appropriate program for balance and coordination activity. Ensured patient safety with use of gait belt Billing Therapeutic Exercise Treatment Minutes: 10 Neuromuscular Re-Education Treatment Minutes: 28 Skilled Treatment Time Minutes (timed and untimed codes): 38 Total Session Time (minutes): 38 Session Start Time : 819 Session Stop Time : 08 Dominick Campos PT documented in this encounter [facility] 03-06-2024 Note HNO ID: [id number] Author: DOMINICK CAMPOS PT Service: ? Author Type: Physical Therapist Type: Progress Notes Filed: 03/06/2024 12:16 Note Text: Episode Visit Count: 2 Therapist That Will Accept/Oversee The Plan Of Care: Dominick Campos Start of Care Date: 02/07/24 Onset Date: 08/28/23 Plan of Care Certification Date: 02/07/24 Next Certification Due Date: 04/08/24 REHABILITATION AND SPORTS THERAPY PHYSICAL THERAPY TREATMENT NOTE ASSESSMENT: Elyse Maloney tolerated the session with fatigue and no issues. He demonstrated improvements in balance exercise performance today. The patient will continue to benefit from ongoing skilled physical therapy to progress toward set goals. PLAN FOR NEXT VISIT: SUBJECTIVE: Patient returns for first time since eval. Notes he had some trips mixed in and hasn't been able to be back since. Notes he did fall last week but no injury. He caught his foot on a table leg and fell down. He has bene using a walking stick as an AD and this has improved his walking/steadiness Pain: Pain Pain Level: 0 OBJECTIVE MEASURES WITH LEVEL OF FUNCTION: CGA with gait belt for balance exercises today TREATMENT: Therapeutic Exercise: 1: SL hip abduction 3x10/side 2: STS 3x10 3: Standing hip abduction 3x10/side 4: Standing calf raises 3x10/side 5: Seated heel to toe raises 3x10 Skilled Intervention: Patient was educated in proper exercise technique and purpose for exercises. Skilled judgment was used in selection of appropriate interventions. Correct performance of therapeutic exercises was facilitated with verbal cuing. Neuromuscular Re-Education: 1: NBOS 2: Semi tandem 3: Tandem stance 4: Blue airex pad NBOS, semi tandem, EC and EO x30 sec each 5: Balance board taps x30 each way and static holds x30 sec each way Skilled Intervention: Skilled judgment used to assess appropriate program for balance and coordination activity. Ensured patient safety with use of gait belt and CGA Billing Therapeutic Exercise Treatment Minutes: 15 Neuromuscular Re-Education Treatment Minutes: 25 Skilled Treatment Time Minutes (timed and untimed codes): 40 Total Session Time (minutes): 40 Session Start Time : 45 Session Stop Time : 1025 Dominick Campos PT [facility] 03-06-2024 History of Present illness Narrative Episode Visit Count: 2 Therapist That Will Accept/Oversee The Plan Of Care: Dominick Campos Start of Care Date: 02/07/24 Onset Date: 08/28/23 Plan of Care Certification Date: 02/07/24 Next Certification Due Date: 04/08/24 REHABILITATION AND SPORTS THERAPY PHYSICAL THERAPY TREATMENT NOTE ASSESSMENT: Elyse Maloney tolerated the session with fatigue and no issues. He demonstrated improvements in balance exercise performance today. The patient will continue to benefit from ongoing skilled physical therapy to progress toward set goals. PLAN FOR NEXT VISIT: SUBJECTIVE: Patient returns for first time since eval. Notes he had some trips mixed in and hasn't been able to be back since. Notes he did fall last week but no injury. He caught his foot on a table leg and fell down. He has bene using a walking stick as an AD and this has improved his walking/steadiness Pain: Pain Pain Level: 0 OBJECTIVE MEASURES WITH LEVEL OF FUNCTION: CGA with gait belt for balance exercises today TREATMENT: Therapeutic Exercise: 1: SL hip abduction 3x10/side 2: STS 3x10 3: Standing hip abduction 3x10/side 4: Standing calf raises 3x10/side 5: Seated heel to toe raises 3x10 Skilled Intervention: Patient was educated in proper exercise technique and purpose for exercises. Skilled judgment was used in selection of appropriate interventions. Correct performance of therapeutic exercises was facilitated with verbal cuing. Neuromuscular Re-Education: 1: NBOS 2: Semi tandem 3: Tandem stance 4: Blue airex pad NBOS, semi tandem, EC and EO x30 sec each 5: Balance board taps x30 each way and static holds x30 sec each way Skilled Intervention: Skilled judgment used to assess appropriate program for balance and coordination activity. Ensured patient safety with use of gait belt and CGA Billing Therapeutic Exercise Treatment Minutes: 15 Neuromuscular Re-Education Treatment Minutes: 25 Skilled Treatment Time Minutes (timed and untimed codes): 40 Total Session Time (minutes): 40 Session Start Time : 944 Session Stop Time : 1024 Dominick Campos PT documented in this encounter [facility] 02-07-2024 Note HNO ID: [id number] Author: DOMINICK CAMPOS PT Service: ? Author Type: Physical Therapist Type: Progress Notes Filed: 02/07/2024 16:58 Note Text: Episode Visit Count: 1 Therapist That Will Accept/Oversee The Plan Of Care: Dominick Campos Start of Care Date: 02/07/24 Onset Date: 08/28/23 Plan of Care Certification Date: 02/07/24 Next Certification Due Date: 04/08/24 Patient Identified by Name and Date of : Yes REHABILITATION AND SPORTS THERAPY PHYSICAL THERAPY EVALUATION PLAN OF CARE: Assessment: Elyse Maloney presents with chief complaint of unsteady gait that interferes with standing, walking, heavy exertion, physical activities, recreational activities . He presents with impairments in ADL's, balance, gait, overall function, strength, and symptom management. PROMIS? (Patient-Reported Outcomes Measurement Information System) scores were reviewed and identified as a rehabilitation concern. Prognosis for therapy is Good due to: current objective clinical presentation, good overall health status, positive past response to therapy, good support system/ coping skills . He will benefit from skilled therapy services to meet the goals established for this plan of care as noted below. Assessment Fall Risk : Active low risk Goals for Episode of Care: created on 02/07/24 through 04/08/24 Patient will report no falls. Improve score on Timed Up and Go Test to 10 seconds to reflect decreased fall risk. Improve score on 30 Second Chair Stand to 12 repetitions to reflect decreased fall risk. Improve performance on 4 Stage Balance Test to 10 seconds in SLS and tandem to reflect decreased fall risk. [place] in home exercise program including cardiovascular exercise. Planned Interventions, Frequency, and Duration: Current Frequency: 1x/week Duration: 8 weeks Total Number of Visits Planned: 8 Planned Treatment Interventions: Therapeutic exercise (73990), Neuromuscular re-education (96343), Manual therapy (67723), Therapeutic activities (33956), Self-snf management (92894), Gait Training (38469), Patient/Family/Caregiver Education, Body Mechanics Training PLAN FOR NEXT VISIT: balance training, progress HEP per tolerance. Focus on hip strength and L4-S1 myotomes Patient demonstrates good understanding of plan of care and treatment. The above goals and plan of care were discussed and agreed upon by patient/family. 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 His chief complaint today is feeling dizzy which he describes as feeling off balance and unsteady on his feet. Denies false sensation of movement. Walking or standing for longer periods of time brings on symptoms. 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 5 points is clinically meaningfully difference Percentiles provide an indication of how the patient's score ranks in relation to the general population. Higher percentile rankings indicate better function/quality of life. 50th percentile is the average of the general population and indicates half of respondents had a worse score. OBJECTIVE MEASURES WITH LEVEL OF FUNCTION: LE Strength R LE Strength: 4+/5 L LE Strength: 4/5 grossly, exceptions noted below L Ankle Dorsiflexion (L4): 3+/5 L Ankle Plantarflexion Functional Strength (S1): 4- L Great Toes Extension (L5, S1): 4-/5 Gait Gait Observation: decreased SLS time B and trendelenburg on the LLE Functional Performance Test Results 30 Second Chair Stand Test: 10 reps Timed Up and Go (sec): 10.74 sec 4 Stage Balance Test Narrow base of support (sec): 10 sec Semi-tandem base of support (sec): 10 sec Tandem base of support (sec): 8 sec Single leg stance - right (sec): 5 sec Single leg stance - left (sec): 3 sec Education: Education Learning/educational needs: Home exercise program, Plan of Care, Changes in Plan of Care, Gait Training, Body Mechanics, Safety TREATMENT: PT Treatment Interventions: Therapeutic Exercise Evaluation Therapeutic Exercise: 1: *SL hip abduction 3x10/side 2: *STS 3x10 3: *Standing hip abduction 3x10/side 4: *Standing calf raises 3x10/side 5: *Seated heel to toe raises 3x10 Skilled Intervention: Patient was educated in proper exercise technique and purpose for exercis (more content not included)... [facility] 02-07-2024 History of Present illness Narrative Images from the original note were not included. Episode Visit Count: 1 Therapist That Will Accept/Oversee The Plan Of Care: Dominick Campos Start of Care Date: 02/07/24 Onset Date: 08/28/23 Plan of Care Certification Date: 02/07/24 Next Certification Due Date: 04/08/24 Patient Identified by Name and Date of : Yes REHABILITATION AND SPORTS THERAPY PHYSICAL THERAPY EVALUATION PLAN OF CARE: Assessment: Elyse Maloney presents with chief complaint of unsteady gait that interferes with standing, walking, heavy exertion, physical activities, recreational activities . He presents with impairments in ADL's, balance, gait, overall function, strength, and symptom management. PROMIS (Patient-Reported Outcomes Measurement Information System) scores were reviewed and identified as a rehabilitation concern. Prognosis for therapy is Good due to: current objective clinical presentation, good overall health status, positive past response to therapy, good support system/ coping skills . He will benefit from skilled therapy services to meet the goals established for this plan of care as noted below. Assessment Fall Risk : Active low risk Goals for Episode of Care: created on 02/07/24 through 04/08/24 Patient will report no falls. Improve score on Timed Up and Go Test to 10 seconds to reflect decreased fall risk. Improve score on 30 Second Chair Stand to 12 repetitions to reflect decreased fall risk. Improve performance on 4 Stage Balance Test to 10 seconds in SLS and tandem to reflect decreased fall risk. [place] in home exercise program including cardiovascular exercise. Planned Interventions, Frequency, and Duration: Current Frequency: 1x/week Duration: 8 weeks Total Number of Visits Planned: 8 Planned Treatment Interventions: Therapeutic exercise (70111), Neuromuscular re-education (41810), Manual therapy (20115), Therapeutic activities (83973), Self-snf management (36540), Gait Training (65812), Patient/Family/Caregiver Education, Body Mechanics Training PLAN FOR NEXT VISIT: balance training, progress HEP per tolerance. Focus on hip strength and L4-S1 myotomes Patient demonstrates good understanding of plan of care and treatment. The above goals and plan of care were discussed and agreed upon by patient/family. 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 His chief complaint today is feeling dizzy which he describes as feeling off balance and unsteady on his feet. Denies false sensation of movement. Walking or standing for longer periods of time brings on symptoms. 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 5 points is clinically meaningfully difference Percentiles provide an indication of how the patient's score ranks in relation to the general population. Higher percentile rankings indicate better function/quality of life. 50th percentile is the average of the general population and indicates half of respondents had a worse score. OBJECTIVE MEASURES WITH LEVEL OF FUNCTION: LE Strength R LE Strength: 4+/5 L LE Strength: 4/5 grossly, exceptions noted below L Ankle Dorsiflexion (L4): 3+/5 L Ankle Plantarflexion Functional Strength (S1): 4- L Great Toes Extension (L5, S1): 4-/5 Gait Gait Observation: decreased SLS time B and trendelenburg on the LLE Functional Performance Test Results 30 Second Chair Stand Test: 10 reps Timed Up and Go (sec): 10.74 sec 4 Stage Balance Test Narrow base of support (sec): 10 sec Semi-tandem base of support (sec): 10 sec Tandem base of support (sec): 8 sec Single leg stance - right (sec): 5 sec Single leg stance - left (sec): 3 sec Education: Education Learning/educational needs: Home exercise program, Plan of Care, Changes in Plan of Care, Gait Training, Body Mechanics, Safety TREATMENT: PT Treatment Interventions: Therapeutic Exercise Evaluation Therapeutic Exercise: 1: *SL hip abduction 3x10/side 2: *STS 3x10 3: *Standing hip abduction 3x10/side 4: *Standing calf raises 3x10/side 5: *Seated heel to toe raises 3x10 Skilled Intervention: Patient was educated in proper exercise technique and purpose for exercises. Skilled judgment was used in selection of appropriate interventions. Provided written instruction for home exercise program to facilitate proper performance and compliance. Correct performance of therapeutic exercises was facilitated with verbal, visual, and tactile cuing. Billing * Evaluation Low Complexity: 1 Unit Therapeutic Exercise Treatment Minutes: 12 Skilled Treatment Time Minutes (timed and untimed codes): 35 Total Session Time (minutes): 35 Session Start Time : 904 Session Stop Time : 939 Physical Therapy Evaluation Dominick Campos PT Program_ID:[id number] Access Code: [email or web address] URL: [email or web address] Date: 02-07-2024 Prepared By: Dominick Campos Program Notes Exercises - Sidelying Hip Abduction - 1 x daily - 7 x weekly - 3 sets - 10 reps - Sit to Stand with Arms Crossed - 1 x daily - 7 x weekly - 3 sets - 10 reps - Heel Raises with Counter Support - 1 x daily - 7 x weekly - 3 sets - 10 reps - Standing Hip Abduction with Counter Support - 1 x daily - 7 x weekly - 3 sets - 10 reps - Seated Heel Toe Raises - 1 x daily - 7 x weekly - 3 sets - 10 reps documented in this encounter [facility] 01-26-2024 Instructions Marsha Arias PA-C - 01/26/2024 1:44 PM EDT Consult to physical therapy Continue with B12 supplementation Follow up in 3 months documented in this encounter [facility] 01-26-2024 Note HNO ID: [id number] Author: MARSHA ARIAS PA-C Service: ? Author Type: Physician Technical Staff Assistant Type: Progress Notes Filed: 01/26/2024 13:59 Note Text: ESTABLISHED PATIENT VISIT Last visit: 12/05/23 Assessment AND Plan: Elyse Maloney is a 88 year old right-handed male with a history of A-fib on Eliquis, hypertension, hyperlipidemia, CAD, ISAAC. His examination demonstrates sensory changes in a stocking glove fashion with absent Achilles reflex and diminished patellar reflex. Weakness on the left lower extremity and minimally on the left upper extremity. Some left-sided drooping of the eyelid, but otherwise facial muscles are intact. Significantly hard of hearing. Patient with 2 to 3 years of constant unsteadiness with standing. Worse when he is in the shower washing his hair, but now worse at a certain time of day or after eating. Orthostatics were negative. Patient with signs and symptoms of neuropathy in his lower extremities and in his fingertips. No history of diabetes or other risk factors for neuropathy. Patient also with some weakness in the left upper and lower extremity, minimally left facial weakness. CT of the brain was negative, but will obtain MRI of the brain to rule out any stroke contributing patient's symptoms. However, primary concern is neuropathy, will obtain EMG of the upper and lower extremity to evaluate for any signs of neuropathy or other neuromuscular etiology. Will obtain basic blood work as well to look for common causes of neuropathy. Did discuss alpha lipoic acid to prevent further worsening of symptoms as patient reporting some numbness and tingling in his fingertips over the last few months. Encouraged adequate fluid hydration as well throughout the day however patient is not orthostatic today. No signs or symptoms of cord compression, negative [place] bilaterally, no hyperreflexia noted. Discussed red flag signs symptoms that would warrant going to the emergency department. Patient and family agreeable to treatment plan of care at this time, questions were answered. Patient to follow-up after completion of studies. Elyse was seen today for new patient. Diagnoses and all orders for this visit: Neuropathy - C-REACTIVE PROTEIN (CRP); Future - SED RATE WESTERGREN; Future - METHYLMALONIC ACID; Future - PROT ELECT SERUM WITH VINCENZO AND INTERP; Future - VITAMIN B12 BLOOD; Future Orthostatic dizziness - CONSULT TO NEUROLOGY - MRI BRAIN WO IVCON; Future - PROT ELECT SERUM WITH VINCENZO AND INTERP; Future Abnormal gait - CONSULT TO NEUROLOGY - EMG(NEURO/NI); Future - MRI BRAIN WO IVCON; Future Other orders - iv contrast (will be provided with radiology test); MRI Brain Inject, intravenously, once for 1 dose.No IV access, insert saline lock prior to beginning of sedation, infusion, injection of imaging exam.Discontinue saline lock post exam. If Pt. has a central line or IVAD, may access for administration according to line specific nursing protocol.Once exam is complete flush line and de-access according to line specific nursing protocol in the MR contrast administration guidelines link He should return to see me in 3 months. CHIEF COMPLAINT: follow up HISTORY OF PRESENT ILLNESS: Elyse Maloney is a 88 year old male, There were no vitals taken for this visit. with a PMH significant for A-fib on Eliquis, hypertension, hyperlipidemia, CAD, ISAAC . Patient with gait abnormality and unsteadiness for 2-3 years, MRI cervical spine and lumbar spine show degeneration and encouraged to see spine. EMG unable to determine neuropathy due to lumbar radiculopathy. B12 was also slightly low at 349, encouraged to supplement. 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 Patient with no change in dizziness since last appointment. Denies presyncope, syncope, room spinning dizziness. States that as soon as he stands up or for long period of time after standing he will start to sway and feels very unsteady. No falls since last appointment. Notes he drinks plenty of water at the day and is fairly active. notes that she is concerned because if he walks for a limited distance he needs to sit down due to the unsteadiness. Has been supplementing B12 as instructed but does not feel there is any benefit with this. No new concerns today. REVIEW OF SYSTEMS GENERAL:No weight loss, malaise or fevers. HEENT:Negative for frequent or significant headaches, No changes in hearing or vision, no nose bleeds or other nasal problems NECK:Negative for lumps, goiter, pain and significant neck swelling RESPIRATORY: Negative for cough, wheezing or shortness of breath. CARDIOVASCULAR: Negative for chest pain, leg swelling or palpitations. GASTROINTESTINAL: Negative for abdominal discomfort, blood in stools or black stools or change in bowel habits GENITOURINARY: No history of dysuria, frequency or incontinence MUSCULOSKELETAL: Negative f (more content not included)... [facility] 01-26-2024 History of Present illness Narrative ESTABLISHED PATIENT VISIT Last visit: 12/05/23 Assessment & Plan: Elyse Maloney is a 88 year old right-handed male with a history of A-fib on Eliquis, hypertension, hyperlipidemia, CAD, ISAAC. His examination demonstrates sensory changes in a stocking glove fashion with absent Achilles reflex and diminished patellar reflex. Weakness on the left lower extremity and minimally on the left upper extremity. Some left-sided drooping of the eyelid, but otherwise facial muscles are intact. Significantly hard of hearing. Patient with 2 to 3 years of constant unsteadiness with standing. Worse when he is in the shower washing his hair, but now worse at a certain time of day or after eating. Orthostatics were negative. Patient with signs and symptoms of neuropathy in his lower extremities and in his fingertips. No history of diabetes or other risk factors for neuropathy. Patient also with some weakness in the left upper and lower extremity, minimally left facial weakness. CT of the brain was negative, but will obtain MRI of the brain to rule out any stroke contributing patient's symptoms. However, primary concern is neuropathy, will obtain EMG of the upper and lower extremity to evaluate for any signs of neuropathy or other neuromuscular etiology. Will obtain basic blood work as well to look for common causes of neuropathy. Did discuss alpha lipoic acid to prevent further worsening of symptoms as patient reporting some numbness and tingling in his fingertips over the last few months. Encouraged adequate fluid hydration as well throughout the day however patient is not orthostatic today. No signs or symptoms of cord compression, negative [place] bilaterally, no hyperreflexia noted. Discussed red flag signs symptoms that would warrant going to the emergency department. Patient and family agreeable to treatment plan of care at this time, questions were answered. Patient to follow-up after completion of studies. Elyse was seen today for new patient. Diagnoses and all orders for this visit: Neuropathy - C-REACTIVE PROTEIN (CRP); Future - SED RATE WESTERGREN; Future - METHYLMALONIC ACID; Future - PROT ELECT SERUM WITH VINCENZO AND INTERP; Future - VITAMIN B12 BLOOD; Future Orthostatic dizziness - CONSULT TO NEUROLOGY - MRI BRAIN WO IVCON; Future - PROT ELECT SERUM WITH VINCENZO AND INTERP; Future Abnormal gait - CONSULT TO NEUROLOGY - EMG(NEURO/NI); Future - MRI BRAIN WO IVCON; Future Other orders - iv contrast (will be provided with radiology test); MRI Brain Inject, intravenously, once for 1 dose.No IV access, insert saline lock prior to beginning of sedation, infusion, injection of imaging exam.Discontinue saline lock post exam. If Pt. has a central line or IVAD, may access for administration according to line specific nursing protocol.Once exam is complete flush line and de-access according to line specific nursing protocol in the MR contrast administration guidelines link He should return to see me in 3 months. CHIEF COMPLAINT: follow up HISTORY OF PRESENT ILLNESS: Elyse Maloney is a 88 year old male, There were no vitals taken for this visit. with a PMH significant for A-fib on Eliquis, hypertension, hyperlipidemia, CAD, ISAAC . Patient with gait abnormality and unsteadiness for 2-3 years, MRI cervical spine and lumbar spine show degeneration and encouraged to see spine. EMG unable to determine neuropathy due to lumbar radiculopathy. B12 was also slightly low at 349, encouraged to supplement. 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 Patient with no change in dizziness since last appointment. Denies presyncope, syncope, room spinning dizziness. States that as soon as he stands up or for long period of time after standing he will start to sway and feels very unsteady. No falls since last appointment. Notes he drinks plenty of water at the day and is fairly active. notes that she is concerned because if he walks for a limited distance he needs to sit down due to the unsteadiness. Has been supplementing B12 as instructed but does not feel there is any benefit with this. No new concerns today. REVIEW OF SYSTEMS GENERAL:No weight loss, malaise or fevers. HEENT:Negative for frequent or significant headaches, No changes in hearing or vision, no nose bleeds or other nasal problems NECK:Negative for lumps, goiter, pain and significant neck swelling RESPIRATORY: Negative for cough, wheezing or shortness of breath. CARDIOVASCULAR: Negative for chest pain, leg swelling or palpitations. GASTROINTESTINAL: Negative for abdominal discomfort, blood in stools or black stools or change in bowel habits GENITOURINARY: No history of dysuria, frequency or incontinence MUSCULOSKELETAL: Negative for joint pain or swelling, back pain or muscle pain. NEUROLOGIC:Negative for focal numbness or weakness, headaches and dizziness or syncope, vision changes, speech/languag changes - EXCEPT that as per HPI above. SKIN:Negative for lesions, rash, and itching. PSYCHIATRIC: Negative for sleep disturbance, mood disorder and recent psychosocial stressors. HEMATOLOGIC/LYMPHATIC/IMMUNOLOGIC: Negative for prolonged bleeding, bruising easily or swollen nodes. ENDOCRINE: Negative for cold or heat intolerance, polyuria, polydipsia and goiter. The remainder of the ROS was reviewed and is negative. LAB/IMAGING: Those performed since patient's last visit have been reviewed. MRI brain 12/18/23 IMPRESSION: No acute intracranial abnormality. 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 MRI lumbar and cervical spine 01/24/24 IMPRESSION: Moderate cervical spondylosis, as detailed. Multilevel cord approximation/abutment without intramedullary signal abnormality. Lumbar spondylosis superimposed on developmentally short pedicles, as detailed. Cervical Anatomic Variant: None. Assume 7 cervical vertebrae with counting from the craniocervical junction. Anatomic Lumbar Variant: None. L4-5 is considered the level of the iliac crest and assume there are 5 lumbar-type vertebrae. EMG 01/19/24 Study Interpretation Electrodiagnostic examination of the left upper and lower limbs reveals changes most consistent with the followin. The residuals of an old intraspinal canal lesion (ie: motor radiculopathy) at the left L5 root or segment, moderate to severe in degree electrically. 2. An active/ongoing on remote/chronic intraspinal canal lesion (ie: motor radiculopathy) at the left S1 root or segment, mild in degree electrically. 3. The residuals of an old intraspinal canal lesion (ie: motor radiculopathy) at the left C8 root or segment, mild in degree electrically. 4. Evidence of a left median mononeuropathy at or distal to the wrist (ie: carpal tunnel syndrome), mild in degree electrically. 5. In the setting of #1 and 2 above, an axonal large fiber polyneuropathy cannot be reliably determined on today's study as the absent sensory responses in the lower limb could be normal for a patient of this age. There is no convincing electrodiagnostic evidence to support the presence of neuropathy, but it cannot be reliably excluded either. MEDICATIONS: metoprolol succinate ER (TOPROL XL) 100 mg Take 1 tablet by mouth once daily. OTC PRODUCT Take 1 tablet by mouth twice daily. PreserVision atorvastatin (LIPITOR) 40 mg tablet Take 1 tablet by mouth daily at bedtime. For cholesterol. VA medication. furosemide (LASIX) 20 mg tablet Take 1 tablet by mouth three times a week. Mon, Mon, Monday. VA medication. lisinopril (ZESTRIL, PRINIVIL) 40 mg tablet Take 1 tablet by mouth once daily. VA medication. CPAP Initiate CPAP @ 6 cm of water with humidification. Mask (per patient preference) optional chin strap (if indicated) , filters, tubing, humidifier and lifetime supplies. tamsulosin (FLOMAX) 0.4 mg Take 1 capsule by mouth daily at bedtime. apixaban (ELIQUIS) 5 mg tab(s) Take 5 mg by mouth twice daily. finasteride (PROSCAR) 5 mg tablet Take 1 tablet by mouth once daily. VA medication. COMPOUNDED PRESCRIPTION CPAP mask, tubing, and supplies. Dx: ICD9: 327.23, ICD10: G47.33 COMPOUNDED PRESCRIPTION replacment cpap machine with heated humifier, replacemnt mask and supplies. set presssure at 6 cm and H2o. ISAAC dx. MULTIVITAMIN ORAL TAB Take one(1) tablet daily. HISTORIES PAST MEDICAL HISTORY Diagnosis Date Acquired left foot drop 1998 Atrial fibrillation (HCC) 04/29/2020 Diverticulosis of colon (without mention of hemorrhage) 04/05/2005 Herniated lumbar intervertebral disc 1998 Left foot drop Hydrocele, bilateral 06/20/2022 Obstructive sleep apnea 08/16/2010 Pure hypercholesterolemia 04/05/2005 SLEEP APNEA NOS 12/29/2008 Wearing CPAP 8 hours a night as of 01-03 Last sleep study about age 70 Unspecified essential hypertension 04/05/2005 Unspecified hyperplasia of prostate without urinary obstruction and other lower urinary tract symptoms (LUTS) 05/21/2010 FAMILY HISTORY Problem Relation Age of Onset Hypertension Mother dec. age 88 Heart Father dec. age 83, CHF Diabetes Father None Sister SOCIAL HISTORY Social History Tobacco Use Smoking status: Former Packs/day: 0.50 Years: 20.00 Additional pack years: 0.00 Total pack years: 10.00 Types: Cigarettes Quit date: 08/28/1977 Years since quittin.4 Smokeless tobacco: Never Substance Use Topics Alcohol use: Yes Alcohol/week: 3.3 standard drinks of alcohol Types: 2 Cans of Beer (12oz), 1 Martini/Manhattan Drinks per week Drug use: No PHYSICAL EXAMINATION BP 159/91 Pulse 87 Resp 16 Wt 86.2 kg (190 lb) SpO2 100% BMI 28.89 kg/m GENERAL EXAM: General appearance: NAD, pleasant. HEENT: NC/AT, nasal congestion absent, no oral lesions, membranes moist. NECK: No masses, supple. Lungs: Breathing comfortably Extr: Moves all extremities without difficulty Skin: Cool to touch. No rash. NEUROLOGICAL EXAM: General: Awake, alert, oriented x3 (person,place,time), speech fluent, no dysarthria; comprehension, naming, repetition intact. CN: PERRL, EOMI and without nystagmus, VFF to confrontation, facial sensation and strength are normal and symmetric, hearing diminished bilaterally , palate and tongue movements are intact and symmetric. SCM and trapezius strength normal. Motor: Normal tone, bulk. 4+/5 strength at the left tricep and with left hip flexion and left hip abduction. Otherwise full strength throughout Reflexes: 1/4 to the upper and lower extremities bilaterally with exception of Achilles, this was 0/4. Negative [place]. Coordination: FNF intact. No tremors. Sensation: Decreased vibration at the great toe, slightly diminished at the ankle but otherwise intact throughout upper and lower extremities. Decreased temperature sensation to the left leg compared to the right but intact in the upper extremities. Gait: Gait is guarded, mild shuffling. Assessment and Plan: ASSESSMENT/PLAN: 1. Unsteadiness on feet - ICD9: 781.2, ICD10: R26.81 (primary diagnosis) 2. Spinal stenosis of lumbar region, unspecified whether neurogenic claudication present - ICD9: 724.02, ICD10: M48.061 3. Cervical stenosis of spinal canal - ICD9: 723.0, ICD10: M48.02 4. Orthostatic dizziness - ICD9: 780.4, ICD10: R42 Patient with persistent orthostatic dizziness. Described as an unsteadiness, denies any presyncope or room spinning sensation. MRI of the brain shows no significant etiology, EMG showed significant and diffuse lumbar radiculopathy, difficulty assessing presence of neuropathy. Patient was found to have low B12 level and has been supplementing this, is unsure if there is any benefit. MRI of the cervical and lumbar spine show significant degeneration, both with central stenosis as well as foraminal stenosis. Did refer to spine, but patient deferring this as he has no interest in future surgeries. Discussed referral to physical therapy for both dizziness, formal stenosis in the cervical and lumbar region. Patient is agreeable and will schedule this today. Patient without any recent falls, no bowel bladder changes or saddle anesthesia. Encouraged supplementing B12 for 6 months and then will redraw at that time. Encouraged conservative therapy including water intake, slow transitions from sitting to standing. No new symptoms or concerns at this time that would warrant additional workup. Patient and family agreeable to treatment plan of care this time, questions were answered. Patient follow-up in 3 months or sooner should any symptoms change or worsen. Marsha Arias PA-C I spent a total of 45 minutes on the date of the service which included preparing to see the patient, [id number] patient care, completing clinical documentation, obtaining and/or reviewing separately obtained history, performing a medically appropriate examination, counseling and educating the patient/family/caregiver, and ordering medications, tests, or procedures. This document has been created with the use of voice recognition technology. It may contain inaccuracies: (e.g. misspellings, inaccurate syntax or word sense) that have escaped review. documented in this encounter [facility] 01-25-2024 Telephone encounter Note Phone all placed to patient advised of provider results, recommendations. Patient became upset requested an office visit with Lon Arias and Dr. Vickers at the same time to discuss testing and results, new referrals. Advised that we are unable to schedule with two providers at the same time. Office visit scheduled with Lon Arias on 01/26/2024 in [place] patient reported he didn't mind travel, agreeable to further discuss MRI results with provider, declined to schedule with biometrics specialist at this time. Patient verbalized understanding, agreed with plan of care. [facility] 01-25-2024 Miscellaneous Notes Phone all placed to patient advised of provider results, recommendations. Patient became upset requested an office visit with Lon Arias and Dr. Vickers at the same time to discuss testing and results, new referrals. Advised that we are unable to schedule with two providers at the same time. Office visit scheduled with Lon Arias on 01/26/2024 in [place] patient reported he didn't mind travel, agreeable to further discuss MRI results with provider, declined to schedule with biometrics specialist at this time. Patient verbalized understanding, agreed with plan of care. MRI of the cervical spine and lumbar spine show significant degeneration that may be causing gait issues. Will need to see a spinal specialist, referral placed. Marsha Arias PA-C documented in this encounter [facility] 01-25-2024 Telephone encounter Note MRI of the cervical spine and lumbar spine show significant degeneration that may be causing gait issues. Will need to see a spinal specialist, referral placed. Marsha Arias PA-C [facility] 01-24-2024 History of Present illness Narrative Radiology Service Progress Note PATIENT NAME: Elyse Maloney DATE OF SERVICE: January 24, 2024 TIME: 1:48 PM PATIENT IDENTITY VERIFICATION COMPLETED USING TWO (2) IDENTIFIERS: Name and Date of confirmed by patient verbally. FALL SCREENING: Has the patient had 2 falls in the last year or 1 fall with injury or currently using an Ambulatory Assistive Device (Walker, Cane, Wheelchair, Crutches, etc.)? No PATIENT GENDER DATA: Male PATIENT RELEVANT IMPLANT DATA REVIEWED: Yes PATIENT PRESENTS WITH AN IMPLANTABLE OR ATTACHED CAREER DEVELOPER: No RADIOLOGY DEPARTMENT: MR; Exam(s) Completed: Spine: Cervical spine and Lumbar spine PERIPHERAL IV DATA: Not applicable SIGNED BY: RT Sade(R) January 24, 2024 1:48 PM documented in this encounter [facility] 01-24-2024 Note HNO ID: [id number] Author: EMILY LAWTON RT(R) Service: ? Author Type: Technologist Type: Progress Notes Filed: 01/24/2024 13:48 Note Text: Radiology Service Progress Note PATIENT NAME: Elyse Maloney DATE OF SERVICE: January 24, 2024 TIME: 1:48 PM PATIENT IDENTITY VERIFICATION COMPLETED USING TWO (2) IDENTIFIERS: Name and Date of confirmed by patient verbally. FALL SCREENING: Has the patient had 2 falls in the last year or 1 fall with injury or currently using an Ambulatory Assistive Device (Walker, Cane, Wheelchair, Crutches, etc.)? No PATIENT GENDER DATA: Male PATIENT RELEVANT IMPLANT DATA REVIEWED: Yes PATIENT PRESENTS WITH AN IMPLANTABLE OR ATTACHED CAREER DEVELOPER: No RADIOLOGY DEPARTMENT: MR; Exam(s) Completed: Spine: Cervical spine and Lumbar spine PERIPHERAL IV DATA: Not applicable SIGNED BY: RT Sade(R) January 24, 2024 1:48 PM [facility] 01-23-2024 Note HNO ID: [id number] Author: ANG VICKERS MD Service: ? Author Type: Physician Type: Progress Notes Filed: 01/24/2024 07:13 Note Text: This note was created using [employer]. Subjective Elyse Maloney is a 88 year old male was here for follow up. Symptoms of orthostatic dizziness, loss of hand coordination, unsteady gati, and blank stares were stable. He resisted the use of assistive devices for preventing falls. He's seen neurology [facility] VES[facility] DECKHAND and initial concern was neuropathy. Parkinsonism was felt less likely. Brain MRI showed diffuse small vessel disease. EMG showed cervical and lumbar radiculopathy. Neuropathy was not demonstrated but cannot be excluded. MRI of cervical spine and lumbar spine was scheduled. Review of Systems No change. 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) Obstructive Sleep Apnea Other Seborrheic Keratosis Vertebral Artery Stenosis, Left Atrial Fibrillation (Hcc) Coronary Atherosclerosis Impaired Fasting Glucose Orthostatic Dizziness Abnormal Gait Social History Tobacco Use Smoking status: Former Packs/day: 0.50 Years: 20.00 Additional pack years: 0.00 Total pack years: 10.00 Types: Cigarettes Quit date: 08/28/1977 Years since quittin.4 Smokeless tobacco: Never Substance Use Topics Alcohol use: Yes Alcohol/week: 3.3 standard drinks of alcohol Types: 2 Cans of Beer (12oz), 1 Martini/Manhattan Drinks per week Drug use: No Current Outpatient Medications Medication Sig metoprolol succinate ER (TOPROL XL) 100 mg Take 1 tablet by mouth once daily. OTC PRODUCT Take 1 tablet by mouth twice daily. PreserVision atorvastatin (LIPITOR) 40 mg tablet Take 1 tablet by mouth daily at bedtime. For cholesterol. VA medication. furosemide (LASIX) 20 mg tablet Take 1 tablet by mouth three times a week. Mon, Mon, Monday. VA medication. lisinopril (ZESTRIL, PRINIVIL) 40 mg tablet Take 1 tablet by mouth once daily. VA medication. CPAP Initiate CPAP @ 6 cm of water with humidification. Mask (per patient preference) optional chin strap (if indicated) , filters, tubing, humidifier and lifetime supplies. tamsulosin (FLOMAX) 0.4 mg Take 1 capsule by mouth daily at bedtime. apixaban (ELIQUIS) 5 mg tab(s) Take 5 mg by mouth twice daily. finasteride (PROSCAR) 5 mg tablet Take 1 tablet by mouth once daily. VA medication. COMPOUNDED PRESCRIPTION CPAP mask, tubing, and supplies. Dx: ICD9: 327.23, ICD10: G47.33 COMPOUNDED PRESCRIPTION replacment cpap machine with heated humifier, replacemnt mask and supplies. set presssure at 6 cm and H2o. ISAAC dx. MULTIVITAMIN ORAL TAB Take one(1) tablet daily. No current facility-administered medications for this visit. Objective BP 148/82 Pulse 64 Resp 16 Wt 86.2 kg (190 lb) BMI 28.89 kg/m? Physical Exam Constitutional: General: He is not in acute distress. Appearance: He is not ill-appearing. Neurological: General: No focal deficit present. Gait: Gait abnormal. Test results pertinent to today's visit were reviewed and discussed with the patient. Assessment and Plan 1. Abnormal gait - ICD9: 781.2, ICD10: R26.9 (primary diagnosis) - He asks for coordination with neurology after this round of testing. 2. Orthostatic dizziness - ICD9: 780.4, ICD10: R42 - Stable. Fall precautions and use of cane encouraged. 3. Essential hypertension - ICD9: 401.9, ICD10: I10 Fair. Time was spent mostly for review and discussion. We will wait for neurology recommendations after his spine MRI. Ang Vickers MD [facility] 01-23-2024 History of Present illness Narrative This note was created using [employer]. Subjective Elyse Maloney is a 88 year old male was here for follow up. Symptoms of orthostatic dizziness, loss of hand coordination, unsteady gati, and blank stares were stable. He resisted the use of assistive devices for preventing falls. He's seen neurology [facility] DECKHAND and initial concern was neuropathy. Parkinsonism was felt less likely. Brain MRI showed diffuse small vessel disease. EMG showed cervical and lumbar radiculopathy. Neuropathy was not demonstrated but cannot be excluded. MRI of cervical spine and lumbar spine was scheduled. Review of Systems No change. 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) Obstructive Sleep Apnea Other Seborrheic Keratosis Vertebral Artery Stenosis, Left Atrial Fibrillation (Hcc) Coronary Atherosclerosis Impaired Fasting Glucose Orthostatic Dizziness Abnormal Gait Social History Tobacco Use Smoking status: Former Packs/day: 0.50 Years: 20.00 Additional pack years: 0.00 Total pack years: 10.00 Types: Cigarettes Quit date: 08/28/1977 Years since quittin.4 Smokeless tobacco: Never Substance Use Topics Alcohol use: Yes Alcohol/week: 3.3 standard drinks of alcohol Types: 2 Cans of Beer (12oz), 1 Martini/Manhattan Drinks per week Drug use: No Current Outpatient Medications Medication Sig metoprolol succinate ER (TOPROL XL) 100 mg Take 1 tablet by mouth once daily. OTC PRODUCT Take 1 tablet by mouth twice daily. PreserVision atorvastatin (LIPITOR) 40 mg tablet Take 1 tablet by mouth daily at bedtime. For cholesterol. VA medication. furosemide (LASIX) 20 mg tablet Take 1 tablet by mouth three times a week. Mon, Wed, Monday. VA medication. lisinopril (ZESTRIL, PRINIVIL) 40 mg tablet Take 1 tablet by mouth once daily. VA medication. CPAP Initiate CPAP @ 6 cm of water with humidification. Mask (per patient preference) optional chin strap (if indicated) , filters, tubing, humidifier and lifetime supplies. tamsulosin (FLOMAX) 0.4 mg Take 1 capsule by mouth daily at bedtime. apixaban (ELIQUIS) 5 mg tab(s) Take 5 mg by mouth twice daily. finasteride (PROSCAR) 5 mg tablet Take 1 tablet by mouth once daily. VA medication. COMPOUNDED PRESCRIPTION CPAP mask, tubing, and supplies. Dx: ICD9: 327.23, ICD10: G47.33 COMPOUNDED PRESCRIPTION replacment cpap machine with heated humifier, replacemnt mask and supplies. set presssure at 6 cm and H2o. ISAAC dx. MULTIVITAMIN ORAL TAB Take one(1) tablet daily. No current facility-administered medications for this visit. Objective BP 148/82 Pulse 64 Resp 16 Wt 86.2 kg (190 lb) BMI 28.89 kg/m Physical Exam Constitutional: General: He is not in acute distress. Appearance: He is not ill-appearing. Neurological: General: No focal deficit present. Gait: Gait abnormal. Test results pertinent to today's visit were reviewed and discussed with the patient. Assessment and Plan 1. Abnormal gait - ICD9: 781.2, ICD10: R26.9 (primary diagnosis) - He asks for coordination with neurology after this round of testing. 2. Orthostatic dizziness - ICD9: 780.4, ICD10: R42 - Stable. Fall precautions and use of cane encouraged. 3. Essential hypertension - ICD9: 401.9, ICD10: I10 Fair. Time was spent mostly for review and discussion. We will wait for neurology recommendations after his spine MRI. Ang Vickers MD documented in this encounter [facility] 01-19-2024 Telephone encounter Note Pt returned call and given provider's message below with verbalized understanding. Pt asking if provider wants him to schedule f/u appt? Transferred to pss to schedule MRI. [facility] 01-19-2024 Miscellaneous Notes Pt returned call and given provider's message below with verbalized understanding. Pt asking if provider wants him to schedule f/u appt? Transferred to pss to schedule MRI. TC to pt with no answer. Left VM to return call. Lisa Liang LPN EMG of the upper and lower extremity show likely degeneration of the spine contributing to patient's symptoms. Would like patient to have MRI of the cervical and lumbar spine performed. Marsha Arias PA-C documented in this encounter [facility] 01-19-2024 Telephone encounter Note TC to pt with no answer. Left VM to return call. Lisa Liang LPN [facility] 01-19-2024 Telephone encounter Note EMG of the upper and lower extremity show likely degeneration of the spine contributing to patient's symptoms. Would like patient to have MRI of the cervical and lumbar spine performed. Marsha Arias PA-C [facility] 01-19-2024 Note HNO ID: [id number] Author: JUAN C FRIAS, DO Service: ? Author Type: Physician Type: Progress Notes Filed: 01/19/2024 10:45 Note Text: UNIVERSAL PROTOCOL / SAFETY CHECKLIST Procedure to be Performed: EMG Sign In: A Moment of CARE was completed. Personnel directly involved with the procedure wore the appropriate PPE (Personal Protective Equipment). Patient/Surrogate Stated/Verified: PATIENT VERIFIED(optional for EMERGENT procedures): Patient name, Date of , Relevant allergies, and The intended procedure Time Out Communication: Intended patient and procedure match the source documents. Correct side/site marked and visible. Sign Out: SIGN OUT (optional for EMERGENT procedures): Post-procedure follow-up management communicated and Plan of Care Visit completed when applicable. Mayi Aguirre [employer] Tech Juan C Frias DO [facility] 01-19-2024 History of Present illness Narrative UNIVERSAL PROTOCOL / SAFETY CHECKLIST Procedure to be Performed: EMG Sign In: A Moment of CARE was completed. Personnel directly involved with the procedure wore the appropriate PPE (Personal Protective Equipment). Patient/Surrogate Stated/Verified: PATIENT VERIFIED(optional for EMERGENT procedures): Patient name, Date of , Relevant allergies, and The intended procedure Time Out Communication: Intended patient and procedure match the source documents. Correct side/site marked and visible. Sign Out: SIGN OUT (optional for EMERGENT procedures): Post-procedure follow-up management communicated and Plan of Care Visit completed when applicable. Mayi Aguirre EMG Tech Juan C Frias DO documented in this encounter [facility] 12-18-2023 History of Present illness Narrative Radiology Service Progress Note PATIENT NAME: Elyse Maloney DATE OF SERVICE: December 18, 2023 TIME: 11:27 AM PATIENT IDENTITY VERIFICATION COMPLETED USING TWO (2) IDENTIFIERS: Name and Date of confirmed by patient verbally. FALL SCREENING: Has the patient had 2 falls in the last year or 1 fall with injury or currently using an Ambulatory Assistive Device (Walker, Cane, Wheelchair, Crutches, etc.)? No PATIENT GENDER DATA: Male PATIENT RELEVANT IMPLANT DATA REVIEWED: Yes PATIENT PRESENTS WITH AN IMPLANTABLE OR ATTACHED CAREER DEVELOPER: No RADIOLOGY DEPARTMENT: MR; Exam(s) Completed: Head: Routine Brain PERIPHERAL IV DATA: Not applicable SIGNED BY: RT Sade(R) December 18, 2023 11:27 AM documented in this encounter [facility] 12-05-2023 Miscellaneous Notes Spoke with Elyse on 12/05/23 in regards to getting scheduled for his EMG appointment. Patient indicated that he is taking the medication Eliquis. Instructed that this medication is to be held for 24 hours prior to testing. Patient is to reach out to prescribing physician to ensure that it is safe to hold prior to testing. Elyse expressed understanding with these instructions. Mayi EMG Tech documented in this encounter [facility] 12-05-2023 Instructions Marsha Arias PA-C - 12/05/2023 7:45 AM EDT Laboratory studies MRI of the brain EMG of the leg and arm Start alpha lipoic acid 600mg Follow up after testing documented in this encounter [facility] 12-05-2023 History of Present illness Narrative Images from the original note were not included. [facility] Outpatient [facility] Date: December 05, 2023 Patient Name: Elyse Maloney Referring physician: Ang Vickers [address] [phone] Consult requested for dizziness by Dr. Vickers. Recommendations will be communicated via shared medical record or US mail. Primary physician: Ang Vickers [address] [phone] Reason for Evaluation: Dizziness Subjective HPI Elyse Maloney is a 88 year old right-handed male with history of A fib, HTN, HLD, ISAAC, CAD who presents for evaluation of dizziness. Dr. Vickers is the referring physician and PCP. Chart review: Saw PCP on 11/22/23 for check up, noted dizziness. He continued to have orthostatic dizziness even off furosemide, so he resumed the medication. He saw his wood model maker and stress test, echo, and Zio were unremarkable. Other issues noted by were increased somnolence, more difficulty with coordination holding a cup, and episodes of staring at other people or things for no apparent reason. CT brain negative. Patient presents with his family for evaluation of dizziness. Patient notes that a few years ago he is been having some unsteadiness. Denying any room spinning or presyncopal sensation. No syncope or loss of consciousness. Does note that he is fallen twice from this, states that he trips over steps and other things causing him to fall. No serious injury with these. Last fall was about 3 months ago. Patient notes that he only experiences the unsteadiness when he is standing and looking straight ahead, not if he is walking or if he is sitting, laying down. No other triggers, no positional lightheadedness, but more of an unsteadiness. States he feels like he is rocking back and forth but this resolves if he starts walking. Notes that if he lays again something he is also fine and goes away. Notes that it has not significantly worsened since its began about 2 years ago. Denies any paresthesias in the feet, but recently started experiencing some paresthesias in the hands, fingertips. This is constant some weakness in the hands as well. Patient and notes that he started drinking from cups with 2 hands instead of 1. No bowel bladder incontinence, no saddle anesthesia. Patient notes some chronic left lower extremity weakness, attributes this to an old work injury of his low back. Never had any testing for this. No history of back surgeries, chronic neck or back pain. History of carpal tunnel syndrome in the left upper extremity. Does have some difficulty with buttons. No history of diabetes mellitus, no heavy metal exposure, no heavy alcohol use, no chemotherapy, no supplements, no diet restrictions. No tremor, no memory loss, no incontinence, patient is hard of hearing chronically. No history of constipation, no micrographia. Has chronic anosmia, no voice change, no REM sleep disturbance. Notes that the sister was just diagnosed Alzheimer's, but no other neurologic disease in the family. Was diagnosed with A-fib 3 to 4 years ago and is compliant with his Eliquis. Notes that he recently had his blood pressure medications adjusted as there was some thought this may be impacting his symptoms, but this made no change. Also having some shortness of breath with exertion, has been followed with cardiology with negative workup thus far. Overall feels very fatigued as well. Labs/Imaging CT brain 11/24/23 IMPRESSION: No acute findings. No acute infarction, intracranial hemorrhage or intracranial mass lesion. Medications: Current Outpatient Medications Medication Sig Dispense Refill metoprolol succinate ER (TOPROL XL) 100 mg Take 1 tablet by mouth once daily. OTC PRODUCT Take 1 tablet by mouth twice daily. PreserVision atorvastatin (LIPITOR) 40 mg tablet Take 1 tablet by mouth daily at bedtime. For cholesterol. [facility] medication. furosemide (LASIX) 20 mg tablet Take 1 tablet by mouth three times a week. Mon, Wed, Monday. VA medication. lisinopril (ZESTRIL, PRINIVIL) 40 mg tablet Take 1 tablet by mouth once daily. VA medication. CPAP Initiate CPAP @ 6 cm of water with humidification. Mask (per patient preference) optional chin strap (if indicated) , filters, tubing, humidifier and lifetime supplies. 1 Each 0 tamsulosin (FLOMAX) 0.4 mg Take 1 capsule by mouth daily at bedtime. 30 capsule 2 apixaban (ELIQUIS) 5 mg tab(s) Take 5 mg by mouth twice daily. finasteride (PROSCAR) 5 mg tablet Take 1 tablet by mouth once daily. VA medication. COMPOUNDED PRESCRIPTION CPAP mask, tubing, and supplies. Dx: ICD9: 327.23, ICD10: G47.33 1 Each 0 COMPOUNDED PRESCRIPTION replacment cpap machine with heated humifier, replacemnt mask and supplies. set presssure at 6 cm and H2o. ISAAC dx. 1 Each 11 MULTIVITAMIN ORAL TAB Take one(1) tablet daily. 0 iv contrast (will be provided with radiology test) MRI Brain Inject, intravenously, once for 1 dose.No IV access, insert saline lock prior to beginning of sedation, infusion, injection of imaging exam.Discontinue saline lock post exam. If Pt. has a central line or IVAD, may access for administration according to line specific nursing protocol.Once exam is complete flush line and de-access according to line specific nursing protocol in the MR contrast administration guidelines link 1 Each 0 No current facility-administered medications for this visit. ROS ROS: His ROS was positive for that mentioned in the HPI. Otherwise a 10-point ROS was completed and was negative. ALLERGIES Allergen Reactions Baclofen Other: See Comments vertigo Past Medical History: PAST MEDICAL HISTORY Diagnosis Date Acquired left foot drop 1998 Atrial fibrillation (HCC) 04/29/2020 Diverticulosis of colon (without mention of hemorrhage) 04/05/2005 Herniated lumbar intervertebral disc 1998 Left foot drop Hydrocele, bilateral 06/20/2022 Obstructive sleep apnea 08/16/2010 Pure hypercholesterolemia 04/05/2005 SLEEP APNEA NOS 12/29/2008 Wearing CPAP 8 hours a night as of 01-03 Last sleep study about age 70 Unspecified essential hypertension 04/05/2005 Unspecified hyperplasia of prostate without urinary obstruction and other lower urinary tract symptoms (LUTS) 05/21/2010 Family History: FAMILY HISTORY Problem Relation Age of Onset Hypertension Mother dec. age 88 Heart Father dec. age 83, CHF Diabetes Father None Sister Also includes: . Social History: Social History Tobacco Use Smoking status: Former Packs/day: 0.50 Years: 20.00 Additional pack years: 0.00 Total pack years: 10.00 Types: Cigarettes Quit date: 08/28/1977 Years since quittin.3 Smokeless tobacco: Never Substance Use Topics Alcohol use: Yes Alcohol/week: 3.3 standard drinks of alcohol Types: 2 Cans of Beer (12oz), 1 Martini/Manhattan Drinks per week Drug use: No No alcohol use Objective 12/05/23 0703 12/05/23 0706 12/05/23 0707 Orthostatic BP: 154/81 159/83 154/84 Orthostatic Pulse: 71 70 64 Resp: 16 16 16 SpO2: 97% 97% 97% Weight: 88.4 kg (194 lb 12.8 oz) Physical Examination General Appearance: Well appearing, alert, in no acute distress, well-hydrated, well nourished. Head: Normocephalic Pulm: Breathing comfortably Neck: Supple Psych: Cooperative, appropriate affect Neurological Examination: Mental Status: Alert and Oriented to Place, Person, Time and Situation and Patient follows commands.. Language: Is intact to Comprehension, Fluency and Repetition Cranial Nerves: CNII: Visual acuity normal, visual brothers full to confrontation CNIII, IV, : Pupils equal, round and reactive to light, full extraoccular movements, without nystagmus CN V: Facial sensation intact bilaterally to fine touch CN VII: slight asymmetry of the eye lids with some drooping of the left, otherwise equal CN VIII: Poor hearing CN IX: Gag Reflex not examined CN X: Palate elevates symmetrically CN XI: Full strength shoulder shrug bilaterally CN XII: Tongue protrusion full and midline Motor Exam: Tone - Normal Tone noted in all extremities Bulk - Normal bulk noted in all muscles tested. Inspection - Normal, no fasciculations or tremors noted. Power: MUSCLES Upper Extremity RIGHT LEFT Deltoid 12/30 5/5 Biceps 12/30/5 Triceps / 4+/5 Wrist Extension 12/30 5/5 Wrist Flexion 12/30 5/5 Finger Flexion 12/30 5/ Finger Extension 12/30 5/5 Finger Abd /12 30/5 Finger Add 12/30/ MUSCLES Lower Extremity RIGHT LEFT Hip Flexion 12/30 4+/5 Hip Extension 12/30/5 BiFem (Knee Flex) 12/30 12/30 Quads (Knee Ext) 12/30 4+/5 Gastroc (Plantflx) 12/30 12/30 TibAnt (Dorsiflx) 12/30 12/30 FlxHLong (Toe Flex) 12/30 12/30 ExtHLong (Toe Ext) 12/30 12/30 Sensory Examination Absent vibration to the great toe and ankle, diminished at the knee bilaterally. Intact in the upper extremities. Intact proprioception to the upper extremities, positive pseudoathetosis on Romberg testing. Decreased temperature to the lower extremities compared to the upper, decreased pinprick throughout upper and lower extremities. Reflexes: Negative Trenton bilaterally. Absent Achilles reflex bilaterally, 1-/4 to the patella bilaterally. 1/4 to the upper extremities bilaterally. Coordination: finger-to- nose-finger intact bilaterally. Difficulty with [id number] with the left lower extremity Gait: Patient's gait is slowed. Patient hunching over with some shuffling in his gait, normal arm swing. Romberg: Positive DATA REVIEWED Actual films/image/tracing reviewed and summarized as follows: CT brain Old records reviewed and summarized as follows: Primary care Assessment/Plan Assessment & Plan: Elyse Maloney is a 88 year old right-handed male with a history of A-fib on Eliquis, hypertension, hyperlipidemia, CAD, ISAAC. His examination demonstrates sensory changes in a stocking glove fashion with absent Achilles reflex and diminished patellar reflex. Weakness on the left lower extremity and minimally on the left upper extremity. Some left-sided drooping of the eyelid, but otherwise facial muscles are intact. Significantly hard of hearing. Patient with 2 to 3 years of constant unsteadiness with standing. Worse when he is in the shower washing his hair, but now worse at a certain time of day or after eating. Orthostatics were negative. Patient with signs and symptoms of neuropathy in his lower extremities and in his fingertips. No history of diabetes or other risk factors for neuropathy. Patient also with some weakness in the left upper and lower extremity, minimally left facial weakness. CT of the brain was negative, but will obtain MRI of the brain to rule out any stroke contributing patient's symptoms. However, primary concern is neuropathy, will obtain EMG of the upper and lower extremity to evaluate for any signs of neuropathy or other neuromuscular etiology. Will obtain basic blood work as well to look for common causes of neuropathy. Did discuss alpha lipoic acid to prevent further worsening of symptoms as patient reporting some numbness and tingling in his fingertips over the last few months. Encouraged adequate fluid hydration as well throughout the day however patient is not orthostatic today. No signs or symptoms of cord compression, negative Trenton bilaterally, no hyperreflexia noted. Discussed red flag signs symptoms that would warrant going to the emergency department. Patient and family agreeable to treatment plan of care at this time, questions were answered. Patient to follow-up after completion of studies. Elyse was seen today for new patient. Diagnoses and all orders for this visit: Neuropathy - C-REACTIVE PROTEIN (CRP); Future - SED RATE WESTERGREN; Future - METHYLMALONIC ACID; Future - PROT ELECT SERUM WITH VINCENZO AND INTERP; Future - VITAMIN B12 BLOOD; Future Orthostatic dizziness - CONSULT TO NEUROLOGY - MRI BRAIN WO IVCON; Future - PROT ELECT SERUM WITH VINCENZO AND INTERP; Future Abnormal gait - CONSULT TO NEUROLOGY - EMG(NEURO/NI); Future - MRI BRAIN WO IVCON; Future Other orders - iv contrast (will be provided with radiology test); MRI Brain Inject, intravenously, once for 1 dose.No IV access, insert saline lock prior to beginning of sedation, infusion, injection of imaging exam.Discontinue saline lock post exam. If Pt. has a central line or IVAD, may access for administration according to line specific nursing protocol.Once exam is complete flush line and de-access according to line specific nursing protocol in the MR contrast administration guidelines link He should return to see me in 3 months. I spent a total of 55 minutes on the date of the service which included preparing to see the patient, [id number] patient care, completing clinical documentation, obtaining and/or reviewing separately obtained history, performing a medically appropriate examination, counseling and educating the patient/family/caregiver, and ordering medications, tests, or procedures. Marsha Arias PA-C [facility] Neurology This document has been created with the use of voice recognition technology. It may contain inaccuracies: (e.g. misspellings, inaccurate syntax or word sense) that have escaped review. 11/29/2023 Sleep Apnea Probability Snores loudly: No Tired, fatigued or sleepy in daytime: No Stops breathing or choking/gasping during sleep: Yes High blood pressure: Yes Sleep Apnea Probability Score: 78 (Recommend sleep study) documented in this encounter [facility] 11-29-2023 Miscellaneous Notes Called patient and scheduled on 12/01 with Marsha Arias Patient notified of below results/recommendation, verbalized understanding. PSS please contact Patient to schedule consult. Elaine Jackson LPN Brain CT with no acute findings, no signs of stroke, no mass. Chronic findings of volume loss and microvascular ischemia. I referred him to NEUROLOGY. Please schedule consultation. Patient calling to ask if PCP would advise on his recent Brain CT results? Patient states she continues to have dizziness with certain positions and asks what his next steps should be? Thank you. documented in this encounter [facility] 06-12-2023 Instructions Ang Vickers MD - 06/12/2023 7:12 PM EDT AVOID DAIRY UNTIL BETTER. documented in this encounter [facility] 06-12-2023 History of Present illness Narrative This note was created using [employer]. Subjective Diarrhea is described as nonbloody, soft formed, and liquid occuring 2 stools/day on average and usually after a meals for 1.5 weeks. Symptoms are stable. Kaopectate did not help. Flatulence was noted. He denied travel, unusual food intake, eating out. He had predental work antibiotic one dose last week. Review of Systems Constitutional: Negative for appetite change, chills, fatigue, fever and unexpected weight change. HENT: Negative. Respiratory: Negative. Gastrointestinal: Negative for abdominal distention, abdominal pain, blood in stool, nausea, rectal pain and vomiting. Genitourinary: Negative for decreased urine volume. 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 PreserVision atorvastatin (LIPITOR) 40 mg tablet Take 1 tablet by mouth daily at bedtime. For cholesterol. VA medication. furosemide (LASIX) 20 mg tablet Take 1 tablet by mouth three times a week. Mon, Mon, Monday. VA medication. lisinopril (ZESTRIL, PRINIVIL) 40 mg tablet Take 1 tablet by mouth once daily. VA medication. CPAP Initiate CPAP @ 6 cm of water with humidification. Mask (per patient preference) optional chin strap (if indicated) , filters, tubing, humidifier and lifetime supplies. tamsulosin (FLOMAX) 0.4 mg Take 1 capsule by mouth daily at bedtime. apixaban (ELIQUIS) 5 mg tab(s) Take 5 mg by mouth twice daily. metoprolol succinate ER (TOPROL XL) 50 mg 24 hr tablet Take 1 tablet by mouth once daily. finasteride (PROSCAR) 5 mg tablet Take 1 tablet by mouth once daily. VA medication. LOW-DOSE ASPIRIN ORAL Take 81 mg by mouth. Patient not taking on regular basis. Dr Palmer COMPOUNDED PRESCRIPTION CPAP mask, tubing, and supplies. Dx: ICD9: 327.23, ICD10: G47.33 COMPOUNDED PRESCRIPTION replacment cpap machine with heated humifier, replacemnt mask and supplies. set presssure at 6 cm and H2o. ISAAC dx. MULTIVITAMIN ORAL TAB Take one(1) tablet daily. No current facility-administered medications for this visit. Objective BP 156/73 Pulse 74 Temp 36.4 C (97.5 F) (Temporal) Resp 16 Wt 89.1 kg (196 lb 8 oz) SpO2 97% BMI 29.02 kg/m Physical Exam Constitutional: General: He is not in acute distress. Appearance: He is not ill-appearing or diaphoretic. HENT: Mouth/Throat: Mouth: Mucous membranes are moist. Eyes: General: No scleral icterus. Conjunctiva/sclera: Conjunctivae normal. Pulmonary: Effort: Pulmonary effort is normal. Abdominal: General: Bowel sounds are increased. Palpations: Abdomen is soft. There is no mass. Tenderness: There is no abdominal tenderness. Neurological: Mental Status: He is alert. Assessment and Plan 1. Diarrhea, unspecified type - ICD9: 787.91, ICD10: R19.7 (primary diagnosis) Avoid dairy. Further recommendations with results. - C. DIFFICILE PCR - FECAL LACTOFERRIN/LEUKOCYTES 2. Essential hypertension - ICD9: 401.9, ICD10: I10 Elevated due to illness. - Continue current medications - Recommend home blood pressure monitoring, to bring results to next visit - Return if BP staying elevated in 1 month. Ang Vickers MD BP Manual readin/90 Pulse: 64 LEFT arm REGULAR cuff BP Jackelyn Average: 156/73 Pulse: 74 RIGHT arm REGULAR cuff 1. 143/881 Pulse: 84 2. 151/73 Pulse: 80 3. 154/73 Pulse: 69 4. 162/73 Pulse: 75 BP JACKELYN AVERAGE: 156/73 Pulse: 74 documented in this encounter [facility] 06-12-2023 Miscellaneous Notes Patient call in for loose watery stool x 1.5 weeks. Patient has no signs or symptoms of dehydration. Nurse Triage assessment completed with protocol recommending for disposition of see PCP in 3 days. Patient scheduled to see Dr. Vickers this evening. Care advice reviewed with patient, patient stated understanding. Reason for Disposition [1] MILD diarrhea (e.g., 1-3 or more stools than normal in past 24 hours) without known cause AND [2] present > 7 days Answer Assessment - Initial Assessment Questions 1. DIARRHEA SEVERITY: Patient usually has about 2 loose stools a day. 2. ONSET: 1.5 weeks 3. BM CONSISTENCY: Today it has been watery; It has also been klumpy before 4. VOMITING: Anuj 5. ABDOMINAL PAIN: Cramping but not bad. 6. ABDOMINAL PAIN SEVERITY: excruciating pain, doubled over, unable to do any normal activities Rates pain as mild, between a 1 or 2. 7. ORAL INTAKE: Yes, has been drinking 5-6 glasses of water a day 8. HYDRATION: Denies signs of dehydration; Been urinating fine. 9. EXPOSURE: Denies exposure. 10. ANTIBIOTIC USE: Denies 11. OTHER SYMPTOMS: Denies any other symptoms. Protocols used: [id number] Spoke with triage nurse ROLY. She will call to triage pt. Patient verified by name and . Patient states he is experiencing extreme loose stools, hasn't had a solid bowl movement in 1.5 weeks. He would like to know if he can get a stool lab test to figure out what's going on. Review and advise. documented in this encounter [facility] 10-26-2022 History of Present illness Narrative This note was created using [employer]. Subjective Elyse Maloney is a 86 year old male. His hypertension was controlled better. His labs were reviewed and were fine. 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 PreserVision atorvastatin (LIPITOR) 40 mg tablet Take 1 tablet by mouth daily at bedtime. For cholesterol. [facility] medication. furosemide (LASIX) 20 mg tablet Take 1 tablet by mouth three times a week. Mon, Mon, Monday. VA medication. lisinopril (ZESTRIL, PRINIVIL) 40 mg tablet Take 1 tablet by mouth once daily. VA medication. CPAP Initiate CPAP @ 6 cm of water with humidification. Mask (per patient preference) optional chin strap (if indicated) , filters, tubing, humidifier and lifetime supplies. tamsulosin (FLOMAX) 0.4 mg Take 1 capsule by mouth daily at bedtime. apixaban (ELIQUIS) 5 mg tab(s) Take 5 mg by mouth twice daily. metoprolol succinate ER (TOPROL XL) 50 mg 24 hr tablet Take 1 tablet by mouth once daily. finasteride (PROSCAR) 5 mg tablet Take 1 tablet by mouth once daily. VA medication. LOW-DOSE ASPIRIN ORAL Take 81 mg by mouth. Every other day. Dr Palmer. COMPOUNDED PRESCRIPTION CPAP mask, tubing, and supplies. Dx: ICD9: 327.23, ICD10: G47.33 COMPOUNDED PRESCRIPTION replacment cpap machine with heated humifier, replacemnt mask and supplies. set presssure at 6 cm and H2o. ISAAC dx. MULTIVITAMIN ORAL TAB Take one(1) tablet daily. No current facility-administered medications for this visit. Objective BP 128/72 (BP Site: Left Arm, BP Position: Sitting, BP Cuff Size: Large Adult) Pulse 67 Temp 36.2 C (97.1 F) (Temporal) Wt 89.8 kg (198 lb) BMI 29.24 kg/m Physical Exam Constitutional: Appearance: Normal appearance. Component Latest Ref Rng & Units 09/30/2022 Glucose 74 - 99 mg/dL 115 (H) BUN 9 - 24 mg/dL 18 Creatinine 0.73 - 1.22 mg/dL 0.96 Sodium 136 - 144 mmol/L 135 (L) Potassium 3.7 - 5.1 mmol/L 4.4 Chloride 97 - 105 mmol/L 101 CO2 22 - 30 mmol/L 29 Anion Gap 9 - 18 mmol/L 5 (L) Calcium 8.5 - 10.2 mg/dL 9.4 eGFR >=60 mL/min/1.73m 78 Cholesterol, Total <200 mg/dL 119 Triglyceride <150 mg/dL 70 HDL Cholesterol >39 mg/dL 48 Non HDL Cholesterol <130 mg/dL 71 Fasting Time hrs 10 VLDL Cholesterol <30 mg/dL 14 TC:HDL Ratio <5.10 2.48 LDL Cholesterol <100 mg/dL 57 LDL:HDL Ratio <2.54 1.19 Hemoglobin A1C 4.3 - 5.6 % 5.7 (H) Estimated Average Glucose mg/dL 117 PTH, Intact 15 - 65 pg/mL 58 Magnesium 1.7 - 2.3 mg/dL 1.9 Assessment and Plan 1. Impaired fasting glucose - ICD9: 790.21, ICD10: R73.01 (primary diagnosis) Weight loss, exercise, reduce central adiposity. - BASIC METABOLIC PNL - HGB A1C 2. Essential hypertension - ICD9: 401.9, ICD10: I10 - good control 3. Hypomagnesemia - ICD9: 275.2, ICD10: E83.42 Not taking magnesium due to side effects. - MAGNESIUM BLD 4. Pure hypercholesterolemia - ICD9: 272.0, ICD10: E78.00 Controlled. Ang Vickers MD documented in this encounter [facility] 09-28-2022 Instructions Ang Vickers MD - 09/28/2022 9:16 AM EST FASTING BLOOD WORK SOON. documented in this encounter [facility] 09-28-2022 History of Present illness Narrative This note was created using NoteWriter. Subjective Elyse Maloney is a 86 year old male. He felt well. He saw his wood model maker Dr. Estela bañuelos several months ago, and everything was fine. His blood pressure had been elevating here with us for several months. His medications have been changed and I updated his list. [facility] with a notation that his PTH was elevated, and that he will be referred to endocrinology. He has not heard about this consult yet. He was evaluated here for hypercalcemia 4 months ago. It is probable that his [facility] provider changed his hypertension medications especially his diuretic, due to hypercalcemia. Review of Systems Constitutional: Negative. Respiratory: Negative. Cardiovascular: Negative. Gastrointestinal: Negative. Genitourinary: Negative. Musculoskeletal: Negative. Neurological: Negative for dizziness and light-headedness. 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 PreserVision CPAP Initiate CPAP @ 6 cm of water with humidification. Mask (per patient preference) optional chin strap (if indicated) , filters, tubing, humidifier and lifetime supplies. tamsulosin (FLOMAX) 0.4 mg Take 1 capsule by mouth daily at bedtime. apixaban (ELIQUIS) 5 mg tab(s) Take 5 mg by mouth twice daily. metoprolol succinate ER (TOPROL XL) 50 mg 24 hr tablet Take 1 tablet by mouth once daily. finasteride (PROSCAR) 5 mg tablet Take 1 tablet by mouth once daily. VA medication. LOW-DOSE ASPIRIN ORAL Take 81 mg by mouth. Every other day. Dr Palmer. COMPOUNDED PRESCRIPTION CPAP mask, tubing, and supplies. Dx: ICD9: 327.23, ICD10: G47.33 COMPOUNDED PRESCRIPTION replacment cpap machine with heated humifier, replacemnt mask and supplies. set presssure at 6 cm and H2o. ISAAC dx. MULTIVITAMIN ORAL TAB Take one(1) tablet daily. atorvastatin (LIPITOR) 40 mg tablet Take 1 tablet by mouth daily at bedtime. For cholesterol. VA medication. furosemide (LASIX) 20 mg tablet Take 1 tablet by mouth three times a week. Mon, Mon, Monday. [place] medication. lisinopril (ZESTRIL, PRINIVIL) 40 mg tablet Take 1 tablet by mouth once daily. VA medication. magnesium oxide 400 mg magnesium tab Take 420 mg by mouth once daily. (Patient not taking: Reported on 09/28/2022) No current facility-administered medications for this visit. Objective BP 149/74 (BP Site: Left Arm, BP Position: Sitting, BP Cuff Size: Large Adult) Pulse 65 Temp 36 C (96.8 F) (Temporal) Resp 16 Ht 175.3 cm (5' 9) Wt 91.2 kg (201 lb) BMI 29.68 kg/m Physical Exam Constitutional: General: He is not in acute distress. Appearance: He is not ill-appearing. Cardiovascular: Rate and Rhythm: Normal rate. Rhythm irregular. Heart sounds: S1 normal and S2 normal. No murmur heard. No gallop. Pulmonary: Breath sounds: Normal breath sounds. Abdominal: Palpations: Abdomen is soft. Tenderness: There is no abdominal tenderness. Musculoskeletal: Right lower leg: No edema. Left lower leg: No edema. Neurological: General: No focal deficit present. Mental Status: He is alert. Gait: Gait normal. Assessment and Plan 1. Medicare annual wellness visit, subsequent - ICD9: V70.0, ICD10: Z00.00 (primary diagnosis) See wellness note. 2. Essential hypertension - ICD9: 401.9, ICD10: I10 - suboptimal control - Continue current medication(s) - Follow up in 1 month for BP recheck. - Reviewed risks of HTN and principles of treatment - Goal of BP <130/80 3. Longstanding persistent atrial fibrillation (HCC) - ICD9: 427.31, ICD10: I48.11 Controlled, anticoagulated. 4. Atherosclerosis of [place] coronary artery of [place] heart without angina pectoris - ICD9: 414.01, ICD10: I25.10 Stable. 5. Hypomagnesemia - ICD9: 275.2, ICD10: E83.42 Recheck. - MAGNESIUM BLD 6. Impaired fasting glucose - ICD9: 790.21, ICD10: R73.01 Recheck. - HGB A1C 7. Hypercalcemia - ICD9: 275.42, ICD10: E83.52 Recheck. - BASIC METABOLIC PNL - PTH INTACT BLD 8. Pure hypercholesterolemia - ICD9: 272.0, ICD10: E78.00 TBD. - LIPID PANEL BASIC 9. Need for COVID-19 vaccine - ICD9: V04.89, ICD10: Z23 - PFIZER-BIONTECH COVID-19 BIVALENT BOOSTER VACCINE, AGE 12+ YR Ang Vickers MD Elyse Maloney is a 86 year old male here for a Medicare Subsequent Annual Wellness Visit Health Risk Assessment In general, health is: Very good Concerns with balance:Several days Concerns with teeth or dentures:Not at all Concerns with sexual function:Not at all [place] anxious, stressed, angry, irritable, lonely, isolated, or had thoughts of hurting themself: Not at all Has little interest or pleasure in doing things: Not at all Bothered by feeling down, depressed, or hopeless: Not at all Needs help with grocery shopping, cooking, housework, bathing, grooming, dressing, eating, sitting or standing, walking, using the toilet, handling finances, taking medications, using the telephone, or driving: No Following safety precautions in the home environment and vehicle: removed throw rugs from floors, installed grab bars in the bathroom, handrails in stairwells, having adequate lighting, wearing seatbelt at all times?: Yes Smokes cigarettes, vapes, or chew tobacco: No Eats healthy foods including fruits, vegetables, whole grains, and fiber-rich foods: Nearly every day Number of days per week engages in exercise: 3 days Average alcohol consumption: 2-3 times a week Current Providers Dr. Palmer, cardiology. Dr. Carlos Soto, dermatology. Dr. Dino Liriano, ophthalmology. [place] provider, CAITLIN Madrigal. Emily Finn for CPAP supplies. Medical/Family history review Reviewed and updated problem list, medical/surgical/family/social history, medications, and allergies. Opioid use review Patient is not currently using opioids. Depression screening Depression Screening PHQ-2 Score CHEY-2 Total Score 09/24/2021 0 - Depression screening tool completed and reviewed. Based on score and interview, patient is not at risk for depression. Screening tool discussed with patient, and I recommended no further intervention at this time. Cognitive screening Mini Cog Score: 4 Cognitive screening reviewed and no further action needed (score 3-5) Functional Observation Was the patient's timed Up & Go test unsteady or ? 12 seconds? No Advance Care Planning End of Life planning discussed, including patient's advanced directive wishes: Yes Measurements BP 149/74 Pulse 65 Temp (Src) 96.8 (Temporal) Resp 16 Ht 5' 9 (1.75m) Wt 201 lb (91.2kg) BMI 29.67 kg/(m^2). Visual acuity (required for Welcome to Medicare): follows with optometry/ophthalmology and Right: 20/50 Left: 20/ 70 Both: 20/40 Hearing Evaluation: wears hearing aids Assessment/Plan - Counseled on healthy diet and regular exercise - Fall avoidance - Vaccines recommended COVID-19 - Depression screening documented in this encounter [facility] 05-31-2022 History of Past i llness Narrative Problem Noted Date Diagnosed Date Resolved Date Vertigo 05/31/2022 11/22/2023 Hypomagnesemia 02/18/2022 05/24/2023 Postinflammatory skin changes 05/16/2013 06/07/2017 Actinic skin damage 02/19/2013 06/07/20 17 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 08/15/20102012 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 Solar Lentigines 08/15/2010 06/07/2017 Melanocytic Nevus moles of t runk: chest and back 08/15/2010 07/12/2013 Melanocytic Nevus moles of arms: forearms 08/15/2010 07/12/2013 Unspecified sleep apnea 12/29/200804/29 Overview: Wearing CPAP 8 hours a night as of 01-03 Last sleep study about age 70 Diverticulosis of colon (wit hout mention of hemorrhage) 04/05/2005 06/07/2017 documented as of this encounter (statuses as of 12/05/2023) [facility] History of Past illness Narrative* Problem Noted Date Diagnosed Date Resolved Date Vertigo 05/31/2022 11/22/2023 Hypomagnesemia 02/18/2022 05/24/2023 Postinflammatory skin changes 05/16/2013 06/07/2017 Actinic skin damage 02/19/2013 06/07/20 17 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 08/15/20102012 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 Solar Lentigines 08/15/2010 06/07/2017 Melanocytic Nevus moles of t runk: chest and back 08/15/2010 07/12/2013 Melanocytic Nevus moles of arms: forearms 08/15/2010 07/12/2013 Unspecified sleep apnea 12/29/200804/29 Overview: Wearing CPAP 8 hours a night as of 01-03 Last sleep study about age 70 Diverticulosis of colon (wit hout mention of hemorrhage) 04/05/2005 06/07/2017 documented as of this encounter (statuses as of 12/06/2023) [facility] History of Past illness Narrative* Problem Noted Date Diagnosed Date Resolved Date Vertigo 05/31/2022 11/22/2023 Hypomagnesemia 02/18/2022 05/24/2023 Postinflammatory skin changes 05/16/2013 06/07/2017 Actinic skin damage 02/19/2013 06/07/20 17 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 08/15/20102012 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 Solar Lentigines 08/15/2010 06/07/2017 Melanocytic Nevus moles of t runk: chest and back 08/15/2010 07/12/2013 Melanocytic Nevus moles of arms: forearms 08/15/2010 07/12/2013 Unspecified sleep apnea 12/29/200804/29 Overview: Wearing CPAP 8 hours a night as of 01-03 Last sleep study about age 70 Diverticulosis of colon (wit hout mention of hemorrhage) 04/05/2005 06/07/2017 documented as of this encounter (statuses as of 12/08/2023) [facility] History of Present illness Narrative* Lisa Jim, PT - 05/31/2022 9:56 AM EDT Episode Visit Count: 1 Therapist That Will Accept/Oversee The Plan Of Care: Lisa Jim Start of Care Date: 05/31/22 Onset Date: 05/31/21 Plan of Care Certification Date: 05/31/22 Next Certification Due Date: 05/31/22 Patient Identified by Name and Date of : Yes REHABILITATION AND SPORTS THERAPY PHYSICAL THERAPY EVALUATION PLAN OF CARE: Assessment: Elyse Maloney presents with diagnosis of vertigo that interferes with bending;rising from a chair (turning body, not head) . He presents with impairments in ADL's and functional performance testing indicates pt. Is at low risk for falls and he is able to prevent symptoms with safety awareness through slower movements. . Prognosis for therapy is Excellent due to: current objective clinical presentation;good overall health status . He will benefit from skilled therapy services to meet the goals established for this plan of care as noted below. Assessment Fall Risk : Active low risk Goals for Episode of Care: created on 05/31/22 through 05/31/22 Patient will return to prior level of function with all activities of daily living with trace reports of dizziness. Patient Goals: reduce dizziness with movement Planned Interventions, Frequency, and Duration: Current Frequency: 1 visit Duration: 1 visit Total Number of Visits Planned: 1 Planned Treatment Interventions: Neuromuscular re-education (02300);Self-snf management (55889) PLAN FOR NEXT VISIT: 1 visit. Pt. demonstrates low risk for falls and does not express concern or desire to return to PT. Pt. denies desire to continue attending visits for general balance training.Testing for peripheral and central vestibular involvement negative. Pt. is able to complete provokingmovements with minimal symptom intensity, short duration, and without LOB. Patient demonstrates good understanding of plan of care and treatment. The above goals and plan of care were discussed and agreed upon by patient/family. SUBJECTIVE: Elyse Maloney is a 86 year old male seen today for for brief dizziness that onsets with quick transitioning movements including turning, bending forward, and sit <> stand transfers. Pt. describes 2 falls without injury in the last year, most recent being 3 months ago when bendingover quickly in the yard while trimming bushes. Pt. reports brief dizziness that lasted less than 30 sec. Recently pt. notices dizziness with turning while standing or walking that lasts only a moment. He denies nausea, vertigo, or LOB with this activity and has not symptoms when he performs movements slowly. Seated head movements do not provoke symptoms. Mentions history of dizziness that was much more severe about a year ago but resolved quickly within a morning after taking medication in theER. 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 Equipment Owned: Cane;Wheeled Walker Intake Information: Prescription present Previous Treatment: None Falls Interview: Fall without injury in the last year Falls History # of falls in past year: 2 # of falls resulting in an injury in past year: 0 Concussion History of Concussion: No Vestibular Symptoms present for: years Symptom onset: sudden Dizziness: Yes Description: dizziness Rating of current symptoms: 3/10 Frequency: Intermittent Duration: seconds Symptoms worsened by: pivot turns Symptoms improved by: moving slow Imbalance: Yes Imbalance triggered by: Turning;Bending Imbalance Comments: not observed during visit when performing these activities Fall Assessment: History of falls Frequency of falls: Intermittent;Less than monthly When was your most recent fall?: m-3 Did the fall occur inside or outside?: outside How did the fall occur?: trimming bushes Injuries resulting from fall? : no Dizziness during fall?: unsure How often do you lose your balance?: walking reverse and turning Nausea: no Motion Sickness: None Headache: No Neck Symptoms: No Jaw Symptoms: No Ear Symptoms: No Hearing Changes: No recent changes Tinnitus: No recent changes Sleep Affected by Symptoms: Not affected by dizziness History of Syncope: No History of Migraine: No Denies: headaches;visual changes;tremors;focal weakness;neuropathy;paresthesia;neurological complaints Reports: dizziness Pain: Pain Pain Level: 0 Post Treatment Pain Post Treatment Pain Level: 0 Post Treatment Symptoms: denies dizziness PROMIS Scales Higher is Better 12/25/2019 09/19/2020 02/10/2022 GH Physical - Score 61.9 61.9 57.7 (Very Good) GH Physical - Percentile 88 % 88 % 78 % GH Mental - Score 67.6 56 56 (Excellent) GH Mental - Percentile 96 % 73 % 73 % T-scores: mean of general population = 50. 5 points is clinically meaningfully difference Percentiles provide an indication of how the patient's score ranks in relation to the general population. Higher percentile rankings indicate better function/quality of life. 50th percentile is the average of the general population and indicates half of respondents had a worse score. T-scores: mean of general population = 50. 5 points is clinically meaningfully difference Percentiles provide an indication of how the patient's score ranks in relation to the general population. Higher percentile rankings indicate better function/quality of life. 50th percentile is the average of the general population and indicates half of respondents had a worse score. OBJECTIVE MEASURES WITH LEVEL OF FUNCTION: Cognition Cognition: Follows Commands (somewhat impulsive, but without LOB limited mobility/balance) Vision Vision Deficits: Wears corrective lenses Oculomotor Testing Fixation Present Ocular ROM: WNL Spontaneous Nystagmus: No nystagmus Gaze Evoked Nystagmus: Not Present Smooth pursuit: Horizontal, Vertical and Diagonal all WNL Saccadic eye movements: Horizontal, vertical and oblique all WNL. Head Thrusts: Negative VOR cancelation: Negative VOR to slow head movements: Negative Oculomotor Testing Fixation Removed Spontaneous Nystagmus: No nystagmus Gaze Evoked Nystagmus: Not present Head Shake: Negative Positional Testing Right Savita-Hallpike: Asymptomatic;No nystagmus Left Savita-Hallpike: Asymptomatic;No nystagmus Right Ear Down: Asymptomatic;No nystagmus Left Ear Down: Asymptomatic;No nystagmus Cervical Spine ROM Cervical ROM : Limitation AROM Cervical Protrusion AROM: Normal Cervical Retraction AROM: Normal Cervical Flexion AROM: Normal Cervical Extension AROM: Normal Cervical Side-Bend Right AROM: Normal Cervical Side-Bend Left AROM: Normal Cervical Rotation Right AROM: Normal Cervical Rotation Left AROM: Normal Special Tests - Cervical Cervical Special Tests: Vertebral Artery Test Vertebral Artery Test: Negative Mobility Supine To Sit: Comments Supine To Sit Comments: denies dizziness, nystagmus not present Sit to Supine: Comments Sit To Supine Comments : denies dizziness, nystagmus not present Sit To Stand: Modified Independent;Comments Sit To Stand Comments: brief dizziness described as lightheadedness., 1x <5 sec Stand To Sit: Comments;Modified Independent Stand To Sit Comments: denies dizziness, nystagmus not present Mobility Comments: completes 306 degree turn 1x each side < 3 sec with dizziness <1-2 sec andwithout LOB or AD Gait Gait: Independent Gait Distance (feet): 100 Gait Device: None Gait Observation: unremarkable Education: Education Learning Preferences: Explanation Barriers: None Learning/educational needs: Safety;Plan of Care Education Provided: Yes, see treatment interventions for education provided Education Provided To: Patient Education Mode/Type: Explanation/Discussion;Performance Response to Education/Teach Back: States/Identifies;Return Demonstration TREATMENT: PT Treatment Interventions: Self-Skilled Nursing Management Evaluation Evaluation Self-Skilled Nursing Management: 1: *discussed safety awareness with provoking movements 2: *discussed keeping AD availiable should dizziness symptoms become more intense or last a greaterduration 3: *discussed interpretation of vestibular and functional testing results, and how they rule out peripheral and central vestibular involvement Skilled Intervention: Educated the patient regarding recommendations and provided written instruction to facilitate compliance. Reviewed patient specific diagnosis in relation to activities of daily living/home management. Activity progression based on professional judgement. Billing * Evaluation Moderate Complexity: 1 Unit Self-Care/Home Management Treatment Minutes: 15 Total Treatment Time Minutes (timed/untimed): 45 Lisa Jim [facility] Miscellaneous Notes* Telephone Encounter - Rigoberto Galicia LPN - 05/10/2022 1:04 PM EDT TC to pt, notified of results/provider response. Pt states he is taking a calcium supplement (420mgaccording to pt who read the bottle). Pt will be in next week to have labs drawn. He was advised tohold calcium until further notice. * Telephone Encounter - Mehrdad Victor MD - 05/10/2022 12:18 PM EDT His kidney function has worsened slightly and his calcium is up. Recheck labs in one week. Juvenal sure not taking any calcium supplements. [facility] History of Present illness Narrative* Mehrdad Victor MD - 05/09/2022 2:04 PM EDT Patient presents with: swollen testicles Dizziness HPI: Patient presents today for office visit for follow up. Getting up in the morning or up to go the bathroom in the middle of the night will be lightheaded and has to sit on edge of bed for a minute before standing. While talking with friends told there maybe some therapy for this he could do and thought that he should come in to discuss? Had a episode of vertigo years ago that was major but just over the past 1 year to 6 months has noticed this lightheadedness. Did have a fall while trimming pulido recently. Seen in the past for same in ER on 06/17 and diagnosed with vertigo. Has seen Dr. Vickers after for the same. Has noted some lightheadedness periodically with moving his head. Can happen periodically. Lasts only a few minutes. No headache. No head injury. No vision changes No chest pain or shortness of breath. No palpitations. Happens if standing to quickly. Is on bp meds and flomax. Swollen testicles that wants to have checked. No pain. Just thought should be checked. Has been that way for six months or so. No dysuria. No redness of warmth. MEDICATIONS: Current Outpatient Medications Medication Sig magnesium oxide 400 mg magnesium tab Take 420 mg by mouth once daily. CPAP Initiate CPAP @ 6 cm of water with humidification. Mask (per patient preference) optional chinstrap (if indicated) , filters, tubing, humidifier and lifetime supplies. tamsulosin (FLOMAX) 0.4 mg Take 1 capsule by mouth daily at bedtime. apixaban (ELIQUIS) 5 mg tab(s) Take 5 mg by mouth twice daily. atorvastatin (LIPITOR) 20 mg tablet Take 1 tablet by mouth daily at bedtime. For cholesterol to replace SIMVASTATIN. metoprolol succinate ER (TOPROL XL) 50 mg 24 hr tablet Take 1 tablet by mouth once daily. finasteride (PROSCAR) 5 mg tablet Take 1 tablet by mouth once daily. VA medication. lisinopril-hydrochlorothiazide (PRINZIDE,ZESTORETIC) 20-12.5 mg per tablet Take 2 tablets by mouth once daily. VA medication. LOW-DOSE ASPIRIN ORAL Take 81 mg by mouth once daily. COMPOUNDED PRESCRIPTION CPAP mask, tubing, and supplies. Dx: ICD9: 327.23, ICD10: G47.33 COMPOUNDED PRESCRIPTION replacment cpap machine with heated humifier, replacemnt mask and supplies.set presssure at 6 cm and H2o. ISAAC dx. MULTIVITAMIN ORAL TAB Take one(1) tablet daily. No current facility-administered medications for this visit. ALLERGIES: ALLERGIES Allergen Reactions Baclofen Other: See Comments vertigo PAST MEDICAL HISTORY Diagnosis Date Acquired left foot drop 1998 Atrial fibrillation (HCC) 04/29/2020 Diverticulosis of colon (without mention of hemorrhage) 04/05/2005 Herniated lumbar intervertebral disc 1998 Left foot drop Obstructive sleep apnea 08/16/2010 Pure hypercholesterolemia 04/05/2005 SLEEP APNEA NOS 12/29/2008 Wearing CPAP 8 hours a night as of 01-03 Last sleep study about age 70 Unspecified essential hypertension 04/05/2005 Unspecified hyperplasia of prostate without urinary obstruction and other lower urinary tract symptoms (LUTS) 05/21/2010 PAST SURGICAL HISTORY Procedure Laterality Date ARTHROSCOPY KNEE DIAGNOSTIC W/WO SYNOVIAL BX SPX 08/28/2007 Arthroscopy, knee ARTHROTOMY W/MENISCUS REPAIR KNEE 10/2008 Open knee reconstruction, Left ARTHRP ACETBLR/PROX FEM PROSTC AGRFT/ALGRFT 05/22/2012 Hip replacement, total, Left COLONOSCOPY FLX DX W/COLLJ SPEC WHEN PFRMD 03/31/2003 Colonoscopy COLONOSCOPY FLX DX W/COLLJ SPEC WHEN PFRMD 09/05/2013 Colonoscopy CYSTOURETHROSCOPY 06/28/2012 Cystoscopy LEFT HEART CATH,PERCUTANEOUS 05/25/2020 REVISE MEDIAN N/CARPAL TUNNEL SURG Left 06/10/2020 RPR COMPLEX RETINA DETACH VITRECT &MEMBRANE PEEL 11/26/2010 FAMILY HISTORY Problem Relation Age of Onset Hypertension Mother dec. age 88 Heart Father dec. age 83, CHF Diabetes Father None Sister Social History Tobacco Use Smoking status: Former Packs/day: 0.50 Years: 20.00 Pack years: 10.00 Types: Cigarettes Quit date: 08/28/1977 Years since quittin.7 Smokeless tobacco: Never Substance Use Topics Alcohol use: Yes Alcohol/week: 10.0 standard drinks Types: 2 Cans of Beer (12oz), 1 Martini/Manhattan Drinks per week Drug use: No Reviewed current medications, allergies, past medical history, surgical history, family history andsocial history today. REVIEW OF SYSTEMS All other reviewed and negative other than HPI. HEALTH MAINTENANCE: Reviewed health maintenance issues today VITALS: BP 132/72 Pulse 76 Wt 89.8 kg (198 lb) BMI 28.82 kg/m BP w/Orthostatic Vitals Date and Time Orthostatic BP Orthostatic Pulse BP Pulse BP Position BP Site BP Cuff Size 05/09/22 1437 146/88 81 -- -- -- -- -- 05/09/22 1436 148/80 71 -- -- -- -- -- 05/09/22 1411 -- -- 132/72 76 -- -- -- Last 4 Encounter Wt Readings: Date: Wt: 03/28/2022 89.8 kg (198 lb) 02/11/2022 91.2 kg (201 lb) 02/07/2022 93.4 kg (205 lb 12.8 oz) 09/24/2021 90.3 kg (199 lb) PHYSICAL EXAMINATION: General appearance: Well appearing, alert, in no acute distress, well-hydrated, well nourished. Skin: Skin color, texture, turgor normal, no suspicious rashes or lesions Head: Normocephalic, no masses, lesions, tenderness or abnormalities Eyes: Anicteric sclera. Pupils are equally round and reactive to light. Extraocular movements are intact. Ears: External ears normal, canals clear Neck: Supple, no adenopathy; thyroid symmetric, normal size, no bruits Lungs: Lungs clear to auscultation. No wheezing, rhonchi, rales Heart: RRR without murmur, gallop, or rubs. No ectopy Abdomen: Normal abdominal exam, Abdomen soft, non-tender. Bowel sounds normal. No masses, organomegaly Extremities: No deformities, edema, skin discoloration, clubbing or cyanosis. Good capillary refill. Musculoskeletal: No joint swelling, deformity, or tenderness Peripheral pulses: Normal Neuro: Gait normal. Reflexes normal and symmetric. Sensation grossly intact., Negative findings: speech normal, muscle strength normal, no nystagmus. Unable to reproduce today testing hallpike. Testicle no masses. Some enlargement to the scrotum bilaterally. Some positive transillumination. Suspect is hydrocele. No definite hernias. ASSESSMENT/PLAN: 1. Lightheaded - ICD9: 780.4, ICD10: R42 (primary diagnosis) - check cbc, bmp. Can try vestibular therapy. I cannot reproduce today but will check. Follow up with pcp if worsens or does not improve. 2. Testicular swelling - ICD9: 608.86, ICD10: N50.89 - US SCROTUM AND CONTENTS - Red flags for re-assessment reviewed with patient in detail. Mehrdad Victor [facility] History of Present illness Narrative* Daniela Lyons, [employer]FISHING VESSEL DECKHAND - 03/28/2022 9:02 AM EDT CC: Patient presents with: F/U 6 months HPI Elyse Maloney is a 86 year old male who presents today for above. Pt's BP in office today is 158/82. He continues to take metoprolol and lisinopril-hctz for management and follows with cardiology. He denies chest pain/pressure, headache or blurred vision. Recheck of BP was 150/70. Pt states that at home readings are consistent with 140's /70's-80's. 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 Pt was also diagnosed with a-fib about a year ago. He continues to take eliquis twice daily and Asprin once daily. He denies light-headedness, dizziness or heart palpitations. Abrasion on left leg has healed. No redness, swelling or tenderness noted at site. Fasting glucose of 118 and A1C of 5.6 were noted from blood work taken in February. Pt states he maintains a low carb diet and continues to exercise daily. Anemia was noted on blood work done at AL's office and hemoccult blood testing was ordered. Pt states that this has come back negative and [facility]. Pt continues to wear CPAP at night. Denies cough, shortness of breath or wheezing. REVIEW OF SYSTEMS General: no fevers, no chills, no night sweats, no recurrent infections, no change in appetite, no change in energy and no significant changes in weight Respiratory: no cough, no wheezing, no shortness of breath, no hemoptysis Cardiovascular: no chest pain, no chest pressure, no palpitations and no swelling GI: No nausea, vomiting, or diarrhea : No history of dysuria, frequency or incontinence Skin: Negative for lesions, rash, and itching PAST MEDICAL HISTORY Diagnosis Date Acquired left foot drop 1998 Atrial fibrillation (HCC) 04/29/2020 Diverticulosis of colon (without mention of hemorrhage) 04/05/2005 Herniated lumbar intervertebral disc 1998 Left foot drop Obstructive sleep apnea 08/16/2010 Pure hypercholesterolemia 04/05/2005 SLEEP APNEA NOS 12/29/2008 Wearing CPAP 8 hours a night as of 01-03 Last sleep study about age 70 Unspecified essential hypertension 04/05/2005 Unspecified hyperplasia of prostate without urinary obstruction and other lower urinary tract symptoms (LUTS) 05/21/2010 PAST SURGICAL HISTORY Procedure Laterality Date ARTHROSCOPY KNEE DIAGNOSTIC W/WO SYNOVIAL BX SPX 08/28/2007 Arthroscopy, knee ARTHROTOMY W/MENISCUS REPAIR KNEE 10/2008 Open knee reconstruction, Left ARTHRP ACETBLR/PROX FEM PROSTC AGRFT/ALGRFT 05/22/2012 Hip replacement, total, Left COLONOSCOPY FLX DX W/COLLJ SPEC WHEN PFRMD 03/31/2003 Colonoscopy COLONOSCOPY FLX DX W/COLLJ SPEC WHEN PFRMD 09/05/2013 Colonoscopy CYSTOURETHROSCOPY 06/28/2012 Cystoscopy LEFT HEART CATH,PERCUTANEOUS 05/25/2020 REVISE MEDIAN N/CARPAL TUNNEL SURG Left 06/10/2020 RPR COMPLEX RETINA DETACH VITRECT &MEMBRANE PEEL 11/26/2010 ALLERGIES Baclofen MEDICATIONS magnesium oxide 400 mg magnesium tab Take 420 mg by mouth once daily. CPAP Initiate CPAP @ 6 cm of water with humidification. Mask (per patient preference) optional chinstrap (if indicated) , filters, tubing, humidifier and lifetime supplies. tamsulosin (FLOMAX) 0.4 mg Take 1 capsule by mouth daily at bedtime. apixaban (ELIQUIS) 5 mg tab(s) Take 5 mg by mouth twice daily. atorvastatin (LIPITOR) 20 mg tablet Take 1 tablet by mouth daily at bedtime. For cholesterol to replace SIMVASTATIN. metoprolol succinate ER (TOPROL XL) 50 mg 24 hr tablet Take 1 tablet by mouth once daily. finasteride (PROSCAR) 5 mg tablet Take 1 tablet by mouth once daily. [facility] medication. lisinopril-hydrochlorothiazide (PRINZIDE,ZESTORETIC) 20-12.5 mg per tablet Take 2 tablets by mouth once daily. [facility] medication. LOW-DOSE ASPIRIN ORAL Take 81 mg by mouth once daily. COMPOUNDED PRESCRIPTION CPAP mask, tubing, and supplies. Dx: ICD9: 327.23, ICD10: G47.33 COMPOUNDED PRESCRIPTION replacment cpap machine with heated humifier, replacemnt mask and supplies.set presssure at 6 cm and H2o. ISAAC dx. MULTIVITAMIN ORAL TAB Take one(1) tablet daily. FAMILY HISTORY Problem Relation Age of Onset Hypertension Mother dec. age 88 Heart Father dec. age 83, CHF Diabetes Father None Sister Social History Tobacco Use Smoking status: Former Smoker Packs/day: 0.50 Years: 20.00 Pack years: 10.00 Types: Cigarettes Quit date: 08/28/1977 Years since quittin.6 Smokeless tobacco: Never Used Substance Use Topics Alcohol use: Yes Alcohol/week: 10.0 standard drinks Types: 2 Cans of Beer (12oz), 1 Martini/Manhattan Drinks per week Drug use: No PHYSICAL EXAM BP 150/70 Pulse 90 Resp 14 Wt 89.8 kg (198 lb) BMI 28.82 kg/m General Appearance: well appearing, in no acute distress, alert Lungs: Lungs clear to auscultation. No wheezing, rhonchi, rales. Heart: RRR without murmur, gallop, or rubs. No ectopy Health maintenance reviewed with patient: ADVANCE DIRECTIVE DISCUSSION Never done INFLUENZA(1) due on 04/28/2022 LDL CHOLESTEROL due on 09/17/2022 DIABETES SCREEN due on 09/17/2024 DTAP,TDAP,TD(3 - Tdap) due on 02/08/2032 SHINGRIX VACCINE Completed COVID-19 VACCINE Completed PNEUMOCOCCAL: 65+ Completed DATA REVIEWED: Most recent labs and imaging results. ASSESSMENT/PLAN: 1. Essential hypertension - ICD9: 401.9, ICD10: I10 (primary diagnosis) - suboptimal control; patient follows with cardiology who is monitoring and adjusting medications accordingly - Continue current medication(s) - Recommended regular aerobic exercise. - Recommend home blood pressure monitoring, to bring results in on next visit - Goal of BP <130/80 2. Longstanding persistent atrial fibrillation (HCC) - ICD9: 427.31, ICD10: I48.11 - stable - Continue current medications - Patient following with cardiology 3. Impaired fasting glucose - ICD9: 790.21, ICD10: R73.01 - A1C 5.6 and fasting glucose 118 - Continue current diet and exercise regimen 4. Anemia, unspecified type - ICD9: 285.9, ICD10: D64.9 - IFOBT negative - [facility] will continue to monitor 5. Obstructive sleep apnea - ICD9: 327.23, ICD10: G47.33 - compliant with CPAP - Continue use of CPAP Prescription instructions reviewed with patient as applicable. Potential red flag symptoms discussed with the patient. Reviewed appropriate action plan to take if red flag symptoms occur. Patient agreeable to treatment plan. 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 Solar Lentigines 08/15/2010 06/07/2017 Melanocytic Nevus moles of t runk: chest and back 08/15/2010 07/12/2013 Melanocytic Nevus moles of arms: forearms 08/15/2010 07/12/2013 Unspecified sleep apnea 12/29/200804/29 Overview: Wearing CPAP 8 hours a night as of 01-03 Last sleep study about age 70 Diverticulosis of colon (wit hout mention of hemorrhage) 04/05/2005 06/07/2017 documented as of this encounter (statuses as of 06/12/2023) [facility] History of Past illness Narrative* Problem Noted Date Diagnosed Date Resolved Date Hypomagnesemia 02/18/2022 05/24/2023 Postinflammatory skin changes 05/16/2013 06/07/2017 Actinic skin damage 02/19/2013 06/07/20 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 08/15/20102012 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 Solar Lentigines 08/15/2010 06/07/2017 Melanocytic Nevus moles of t runk: chest and back 08/15/2010 07/12/2013 Melanocytic Nevus moles of arms: forearms 08/15/2010 07/12/2013 Unspecified sleep apnea 12/29/200804/29 Overview: Wearing CPAP 8 hours a night as of 01-03 Last sleep study about age 70 Diverticulosis of colon (wit hout mention of hemorrhage) 04/05/2005 06/07/2017 documented as of this encounter (statuses as of 06/13/2023) [facility] of Present illness Narrative* Ang Vickers MD - 02/18/2022 10:30 AM EDT This note was created using [employer]. Subjective Elyse Maloney is a 86 year old male. His cellulitis resolved. Wound was drying up. He was diagnosed with low magnesium and had been on magnesium tablets for one year. [facility] He was also showing glucose intolerance on his labs thru the [facility]. His recent labs showed a mild anemia. IFOBT was ordered thru the [facility]. Review of Systems Constitutional: Negative. Gastrointestinal: Negative for blood in stool. 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 Mask (per patient preference) optional chinstrap (if indicated) , filters, tubing, humidifier and lifetime supplies. tamsulosin (FLOMAX) 0.4 mg Take 1 capsule by mouth daily at bedtime. apixaban (ELIQUIS) 5 mg tab(s) Take 5 mg by mouth twice daily. atorvastatin (LIPITOR) 20 mg tablet Take 1 tablet by mouth daily at bedtime. For cholesterol to replace SIMVASTATIN. metoprolol succinate ER (TOPROL XL) 50 mg 24 hr tablet Take 1 tablet by mouth once daily. finasteride (PROSCAR) 5 mg tablet Take 1 tablet by mouth once daily. [facility] medication. lisinopril-hydrochlorothiazide (PRINZIDE,ZESTORETIC) 20-12.5 mg per tablet Take 2 tablets by mouth once daily. [facility] medication. LOW-DOSE ASPIRIN ORAL Take 81 mg by mouth once daily. COMPOUNDED PRESCRIPTION CPAP mask, tubing, and supplies. Dx: ICD9: 327.23, ICD10: G47.33 COMPOUNDED PRESCRIPTION replacment cpap machine with heated humifier, replacemnt mask and supplies.set presssure at 6 cm and H2o. ISAAC dx. MULTIVITAMIN ORAL TAB Take one(1) tablet daily. magnesium oxide 400 mg magnesium tab Take 420 mg by mouth once daily. No current facility-administered medications for this visit. Objective BP (P) 136/80 (BP Site: Left Arm, BP Position: Sitting, BP Cuff Size: Large Adult) Pulse (P) 66 Temp (!) (P) 35.8 C (96.5 F) (Temporal) Resp (P) 16 Wt (P) 89.8 kg (198 lb) BMI (P) 28.82 kg/m Physical Exam Constitutional: Appearance: He is not ill-appearing. Musculoskeletal: Left lower leg: No edema. Left ankle: Swelling present. No tenderness. Normal range of motion. Left foot: Swelling present. No tenderness or bony tenderness. Skin: Findings: No erythema. Comments: Linear abrasion with minimal moisture. Mild tenderness. Neurological: Mental Status: He is alert. [facility] labs from 02/09/22 sent for scanning. Assessment and Plan 1. Abrasion of left lower leg with infection, subsequent encounter - ICD9: V58.89, ICD10: S80.812D,L08.9 (primary diagnosis) Continue local wound care. No water activities until healed. 2. Essential hypertension - ICD9: 401.9, ICD10: I10 - suboptimal control - Continue current medication(s) - Goal of BP <130/80 3. Impaired fasting glucose - ICD9: 790.21, ICD10: R73.01 Low carb diet. 4. Hypomagnesemia - ICD9: 275.2, ICD10: E83.42 Noted. - MAGNESIUM 400 MG ( MAGNESIUM OXIDE) TABLET 5. Anemia, unspecified type - ICD9: 285.9, ICD10: D64.9 New finding, mild. He was advised to do the IFOBT as recommended by his [facility] provider. Ang Vickers MD documented [facility] History of Present illness Narrative* Ang Vickers MD - 02/14/2022 10:15 AM EDT This note was created using [employer]. Subjective Elyse Maloney is a 86 year old male. He slipped on a wooden dock about 10 days ago, and abraded his left banuelos. He was doing wound care, and his daughter who is a nurse helped with wound care while in [place]. He returned here and developed redness, heat, and swelling of the left leg. He was seen at on 02/04 and started on doxycycline. Tibia fibular xrays were normal. He returned for short term follow up and was referred to the ER 02/08 for possible IV antibiotics. ER felt he should continue oral antibiotic and marked his erythema, which appeared to be stable. WBC was normal. ESR and CRP were elevated. Swelling and tightness was improving. Review of Systems Constitutional: Negative for fever. Respiratory: Negative. Gastrointestinal: Negative. Musculoskeletal: Negative. Objective BP 142/60 (BP Site: Left Arm, BP Position: Sitting, BP Cuff Size: Large Adult) Pulse 95 Temp 36.7 C (98 F) Resp 12 Ht 176.5 cm (5' 9.5) Wt 91.2 kg (201 lb) SpO2 95% BMI 29.26 kg/m Physical Exam Constitutional: General: He is not in acute distress. Appearance: He is not ill-appearing. Pulmonary: Effort: Pulmonary effort is normal. Musculoskeletal: Right lower leg: No edema. Left lower le+ Edema present. Skin: Comments: 7 cm linear abrasion, vertical along tibial shaft, moist, no drainage. Surrounding erythema, tenderness, and swelling stable within marked boundaries. Neurological: Mental Status: He is alert. UC and ER reports were reviewed. Assessment and Plan 1. Abrasion of left lower leg with infection, subsequent encounter - ICD9: V58.89, ICD10: S80.812D,L08.9 (primary diagnosis) - Continue treatment with DOXYCYCLINE HYCLATE 100 MG TABLET. Extend from 7 days to 12 days. 2. Cellulitis of left lower extremity - ICD9: 682.6, ICD10: L03.116 As above. Return sooner if worse. - DOXYCYCLINE HYCLATE 100 MG TABLET 3. Essential hypertension - ICD9: 401.9, ICD10: I10 Elevated due to injury. Ang Vickers MD documented [facility] History of Present illness Narrative* Lisa Brantley APRN.CAITLIN - 02/08/2022 11:18 AM EDT 86 year old male presents for worsening left leg cellulitis. He was seen yesterday by this provider. He had experienced a fall with wound to left lower leg a week ago Area of cellulitis worsening, going outside marked area Increased swelling and pain Failing outpatient, Sent to ED for eval and likely admission for cellulitis and IV ATB usage. documented in [facility] encounter[facility] Instructions* Patient Instructions* Lisa Brantley APRN.CNP - 02/07/2022 10:05 AM EDT [facility] PATIENT INFO SKIN INFECTION OVERVIEW Cellulitis is an infection of the skin and soft tissue of the skin. The infection is usually causedby bacteria that normally live on the skin, such as staphylococci (Staph) or streptococci (Strep). The infection develops when there is a break in the skin, such as a wound or injury, which may be minor. This allows bacteria to enter the skin and grow, causing infection and swelling. Most cases of cellulitis are mild and heal completely with antibiotic treatment. However, the infection can become severe and cause a bodywide infection if left untreated. It is important to seek medical care promptly if you could have a skin infection. SKIN INFECTION RISK FACTORS Certain conditions increase the risk of developing cellulitis. These include: Recent injury to the skin (a wound, abrasion, cut, recent shaving, or injection drug use) Swelling of the skin due to radiation therapy Current skin infection, such as athlete's foot or impetigo Accumulation of fluid (edema) due to poor circulation, heart failure, liver disease, or past surgery to remove lymph nodes Being overweight Chronic skin conditions, such as eczema or psoriasis However, cellulitis can also develop in people who have no known risk factors. SKIN INFECTION SYMPTOMS Cellulitis The most common symptom of cellulitis is pain or tenderness. Other cellulitis symptoms can include swelling, warmth, and redness in a distinct area of skin. These symptoms usually worsen and the redness may expand over the course of a few days. The skin is usually smooth and shiny ratherthan raised or bumpy. Fever and chills are not common. The most common areas of the body for cellulitis to develop include the legs and the arms; it can also develop around the eye, on the abdominal wall, in the mouth, and around the anus. Other skin infections Other types of skin infections include abscesses, furuncles (boils), and carbuncles. These usually cause a collection of pus under the skin. Skin that is raised, reddened, tender, and pus-filled may be caused by a skin infection known as methicillin-resistant Staphylococcus aureus (MRSA). DO I NEED TO BE EXAMINED? There are many types and causes of skin infections, and it is important to know the most likely cause of the infection before beginning treatment. Using the wrong treatment could allow the infection to worsen. To ensure that the correct treatment is used, it is important to be evaluated by a healthcare provider. SKIN INFECTION TREATMENT Cellulitis treatment includes antibiotics as well as treatment of any underlying condition that ledto the skin infection. Elevate the area Elevating the arm or leg above the level of the heart can help to reduce swelling and speed healing. Keep the area clean and dry It is important to keep the infected area clean and dry. You can showeror bathe normally, and pat the area dry with a clean towel. You can use a bandage or gauze to protect the skin, if needed. Do not use any antibiotic ointments or creams. Antibiotics Most people with cellulitis are treated with an antibiotic that is taken by mouth for one to two weeks. The best antibiotic depends upon your situation. If the infection is severe, you may need to be hospitalized and treated with antibiotics given intoa vein (IV). It is important to take the antibiotic exactly as recommended and to finish the entire course of treatment. Skipping doses or ending treatment early could potentially allow the bacteria to become resistant and require longer treatment. Time to heal The swelling, warmth, and redness should begin to improve within one to three days after starting antibiotics, although these symptoms can persist for two weeks. If the reddened area becomes larger, more swollen, or more tender, call your healthcare provider. He or she may want to reexamine you to determine if further testing or an alternate antibiotic are needed. SKIN INFECTION PROGNOSIS In most cases, you will recover completely from an episode of cellulitis without any complications.If you have skin infection risk factors talk to your healthcare provider to determine if there are steps you can take to minimize the risk of infections in the future. documented in this encounter[facility] History of Present illness Narrative* Maria Elena Gutierrez RT(R) - 02/07/2022 9:40 AM EDT Radiology Service Progress Note PATIENT NAME: Elyse Maloney DATE OF SERVICE: February 07, 2022 TIME: 9:41 AM PATIENT IDENTITY VERIFICATION COMPLETED USING TWO (2) IDENTIFIERS: Name and Date of confirmedby patient verbally. FALL SCREENING: Has the patient had 2 falls in the last year or 1 fall with injury or currently using an Ambulatory Assistive Device (Walker, Cane, Wheelchair, Crutches, etc.)? No PATIENT GENDER DATA: Male PATIENT RELEVANT IMPLANT DATA REVIEWED: Not Applicable RADIOLOGY DEPARTMENT: General X-ray: Exam(s) Completed: Lower Extremity X- Ray(s): Tibia Fibula, Left PERIPHERAL IV DATA: Not applicable SIGNED BY: RT Adam(R) February 07, 2022 9:41 AM documented in this encounterEast [facility]06-[facility]22 History of Present illness Narrative* Lisa Brantley APRN.FISHING VESSEL DECKHAND - 02/07/2022 9:30 AM EDT Images from the original note were not included. This note was created using [employer]. Subjective Elyse Maloney is a 86 year old male. 86 year old male with PMH afib( on Eliquis), HTN, hyperlipidemia, ISAAC, BPH, presents for wound leftlower leg. Acute onset one week ago. States he was fishing in [place]. Endorses that he was walking on a dock, which was slippery, and he fell straight forward. Denies LOC. Denies neck or back pain. Denies abdominal pain. Cut left lower leg, but unsure of what he cut it on. States he did not seek medical treatment at that time. Has been wrapping the area up and applying neosporin. at bedside and states we want to make sure it isn't broken and he needs a tetanus The history is provided by the patient. No product safety technician was used. Trauma This is a new problem. The current episode started in the past 7 days. The problem occurs constantly. The problem has been unchanged. Pertinent negatives include no abdominal pain, anorexia, arthralgias, change in bowel habit, chest pain, chills, congestion, coughing, diaphoresis, fatigue, fever, headaches, joint swelling, myalgias, nausea, neck pain, numbness, rash, sore throat, swollen glands, urinary symptoms, vertigo, visual change, vomiting or weakness. Exacerbated by: touching and movement. Treatments tried: bandage and topical ATB. The treatment provided mild relief. PAST MEDICAL HISTORY Diagnosis Date Acquired left foot drop 1998 Atrial fibrillation (HCC) 04/29/2020 Diverticulosis of colon (without mention of hemorrhage) 04/05/2005 Herniated lumbar intervertebral disc 1998 Left foot drop Obstructive sleep apnea 08/16/2010 Pure hypercholesterolemia 04/05/2005 SLEEP APNEA NOS 12/29/2008 Wearing CPAP 8 hours a night as of 01-03 Last sleep study about age 70 Unspecified essential hypertension 04/05/2005 Unspecified hyperplasia of prostate without urinary obstruction and other lower urinary tract symptoms (LUTS) 05/21/2010 PAST SURGICAL HISTORY Procedure Laterality Date ARTHROSCOPY KNEE DIAGNOSTIC W/WO SYNOVIAL BX SPX 08/28/2007 Arthroscopy, knee ARTHROTOMY W/MENISCUS REPAIR KNEE 10/2008 Open knee reconstruction, Left ARTHRP ACETBLR/PROX FEM PROSTC AGRFT/ALGRFT 05/22/2012 Hip replacement, total, Left COLONOSCOPY FLX DX W/COLLJ SPEC WHEN PFRMD 03/31/2003 Colonoscopy COLONOSCOPY FLX DX W/COLLJ SPEC WHEN PFRMD 09/05/2013 Colonoscopy CYSTOURETHROSCOPY 06/28/2012 Cystoscopy LEFT HEART CATH,PERCUTANEOUS 05/25/2020 REVISE MEDIAN N/CARPAL TUNNEL SURG Left 06/10/2020 RPR COMPLEX RETINA DETACH VITRECT &MEMBRANE PEEL 11/26/2010 ALLERGIES Baclofen MEDICATIONS CPAP Initiate CPAP @ 6 cm of water with humidification. Mask (per patient preference) optional chinstrap (if indicated) , filters, tubing, humidifier and lifetime supplies. tamsulosin (FLOMAX) 0.4 mg Take 1 capsule by mouth daily at bedtime. apixaban (ELIQUIS) 5 mg tab(s) Take 5 mg by mouth twice daily. atorvastatin (LIPITOR) 20 mg tablet Take 1 tablet by mouth daily at bedtime. For cholesterol to replace SIMVASTATIN. metoprolol succinate ER (TOPROL XL) 50 mg 24 hr tablet Take 1 tablet by mouth once daily. finasteride (PROSCAR) 5 mg tablet Take 1 tablet by mouth once daily. [facility] medication. lisinopril-hydrochlorothiazide (PRINZIDE,ZESTORETIC) 20-12.5 mg per tablet Take 2 tablets by mouth once daily. [facility] medication. LOW-DOSE ASPIRIN ORAL Take 81 mg by mouth once daily. COMPOUNDED PRESCRIPTION CPAP mask, tubing, and supplies. Dx: ICD9: 327.23, ICD10: G47.33 COMPOUNDED PRESCRIPTION replacment cpap machine with heated humifier, replacemnt mask and supplies.set presssure at 6 cm and H2o. ISAAC dx. MULTIVITAMIN ORAL TAB Take one(1) tablet daily. doxycycline monohydrate 100 mg tablet Take 1 tablet by mouth twice daily for 7 days. FAMILY HISTORY Problem Relation Age of Onset Hypertension Mother dec. age 88 Heart Father dec. age 83, CHF Diabetes Father None Sister Social History Tobacco Use Smoking status: Former Smoker Packs/day: 0.50 Years: 20.00 Pack years: 10.00 Types: Cigarettes Quit date: 08/28/1977 Years since quittin.4 Smokeless tobacco: Never Used Substance Use Topics Alcohol use: Yes Alcohol/week: 10.0 standard drinks Types: 2 Cans of Beer (12oz), 1 Martini/Manhattan Drinks per week Drug use: No Review of Systems Constitutional: Negative for chills, diaphoresis, fatigue and fever. HENT: Negative for congestion and sore throat. Eyes: Negative for photophobia, pain, discharge, redness, itching and visual disturbance. Respiratory: Negative for apnea, cough, choking and chest tightness. Cardiovascular: Negative for chest pain. Gastrointestinal: Negative for abdominal pain, anorexia, change in bowel habit, nausea and vomiting. Musculoskeletal: Negative for arthralgias, joint swelling, myalgias and neck pain. Left lower leg pain Skin: Positive for wound. Negative for rash. Allergic/Immunologic: Negative for environmental allergies, food allergies and immunocompromised state. Neurological: Negative for dizziness, vertigo, facial asymmetry, weakness, numbness and headaches. Hematological: Negative for adenopathy. Does not bruise/bleed easily. Psychiatric/Behavioral: Negative for agitation and behavioral problems. Objective BP 158/90 Pulse 65 Temp 36.5 C (97.7 F) Resp 26 Wt 93.4 kg (205 lb 12.8 oz) SpO2 97% BMI 29.96 kg/m Physical Exam Vitals and nursing note reviewed. Constitutional: General: He is not in acute distress. Appearance: Normal appearance. He is not ill-appearing, toxic-appearing or diaphoretic. HENT: Head: Normocephalic and atraumatic. Right Ear: External ear normal. Left Ear: External ear normal. Nose: Nose normal. No congestion or rhinorrhea. Mouth/Throat: Mouth: Mucous membranes are moist. Pharynx: Oropharynx is clear. No oropharyngeal exudate or posterior oropharyngeal erythema. Eyes: General: Right eye: No discharge. Left eye: No discharge. Extraocular Movements: Extraocular movements intact. Conjunctiva/sclera: Conjunctivae normal. Pupils: Pupils are equal, round, and reactive to light. Cardiovascular: Rate and Rhythm: Normal rate and regular rhythm. Pulses: Normal pulses. Heart sounds: Normal heart sounds. No murmur heard. No friction rub. No gallop. Pulmonary: Effort: Pulmonary effort is normal. No respiratory distress. Breath sounds: Normal breath sounds. No stridor. No wheezing, rhonchi or rales. Chest: Chest wall: No tenderness. Abdominal: General: Abdomen is flat. There is no distension. Palpations: Abdomen is soft. There is no mass. Tenderness: There is no abdominal tenderness. There is no guarding or rebound. Hernia: No hernia is present. Musculoskeletal: General: No swelling, tenderness, deformity or signs of injury. Normal range of motion. Cervical back: Normal range of motion and neck supple. No rigidity or tenderness. Right lower leg: No edema. Left lower leg: No edema. Legs: Lymphadenopathy: Cervical: No cervical adenopathy. Skin: General: Skin is warm and dry. Capillary Refill: Capillary refill takes less than 2 seconds. Coloration: Skin is not jaundiced or pale. Findings: No bruising, lesion or rash. Neurological: General: No focal deficit present. Mental Status: He is alert and oriented to person, place, and time. Cranial Nerves: No cranial nerve deficit. Sensory: No sensory deficit. Motor: No weakness. Coordination: Coordination normal. Gait: Gait normal. Deep Tendon Reflexes: Reflexes normal. Psychiatric: Mood and Affect: Mood normal. Behavior: Behavior normal. Thought Content: Thought content normal. Assessment and Plan ASSESSMENT/PLAN: 1. Cellulitis of left leg - ICD9: 682.6, ICD10: L03.116 (primary diagnosis) - Begin treatment with Doxcyline - No lymphangetic streaking, this was defined for patient to watch for and to seek medical care immediately if appears - Area of cellulitis defined with pen, seek further attention if this area continues to enlarge - Follow up for recheck in two days - XR TIBIA FIBULA 2V AP/LAT LEFT 2. Left leg pain - ICD9: 729.5, ICD10: M79.605 Occurred related to fall Xray negative Patient does have signs of cellulitis and will treat 3. Fall on same level from slipping, tripping or stumbling, initial encounter - ICD9: E885.9, ICD10: W01.0XXA Occurred one week ago while in [place] Denies seeking medical treatment at the time. +wound left lower extremity 4. Encounter for immunization - ICD9: V03.89, ICD10: Z23 Last tetanus patient is unsure of Tenivac administered here in clinic VIS provided 5. Wound of left lower extremity, initial encounter - ICD9: 894.0, ICD10: S81.802A 6 x 1 irregular linear like wound +cellulitis Will cover with Doxycyline Discussed wound care Cleanse twice a day Apply topical ATB Elevate RICE Follow up for wound recheck. 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 Solar Lentigines 08/15/2010 06/07/2017 Melanocytic Nevus moles of trunk: chest and back 08/15/2010 07/12/2013 Melanocytic Nevus moles of arms: forearms 200907/12/2013 Unspecified sleep apnea 12/29/2008 05/25/20 11 Overview: Wearing CPAP 8 hours a night as of 01-03 Last sleep study about age 70 Diverticulosis of colon (without mention of hemo rrhage) 04/05/2005 06/07/2017 documented as of this encounter (statuses as of 02/07/2022) [facility] illness Narrative* Problem Noted Date Resolved Date Postinflammatory skin changes 05/16/2013 Actinic skin damage 02/19/2013 06/07/2017 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 Eczematous dermatitis 08/15/2010 07/12/2013 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 Solar Lentigines 08/15/2010 06/07/2017 Melanocytic Nevus moles of trunk: chest and back 08/15/2010 07/12/2013 Melanocytic Nevus moles of arms: forearms 200907/12/2013 Unspecified sleep apnea 12/29/2008 05/25/20 11 Overview: Wearing CPAP 8 hours a night as of 01-03 Last sleep study about age 70 Diverticulosis of colon (without mention of hemo rrhage) 04/05/2005 06/07/2017 documented as of this encounter (statuses as of 02/08/2022) [facility] illness Narrative* Problem Noted Date Resolved Date Postinflammatory skin changes 05/16/2013 Actinic skin damage 02/19/2013 06/07/2017 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 Eczematous dermatitis 08/15/2010 07/12/2013 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 Solar Lentigines 08/15/2010 06/07/2017 Melanocytic Nevus moles of trunk: chest and back 08/15/2010 07/12/2013 Melanocytic Nevus moles of arms: forearms 200907/12/2013 Unspecified sleep apnea 12/29/2008 05/25/20 11 Overview: Wearing CPAP 8 hours a night as of 01-03 Last sleep study about age 70 Diverticulosis of colon (without mention of hemo rrhage) 04/05/2005 06/07/2017 documented as of this encounter (statuses as of 02/14/2022) [facility] Narrative* Problem Noted Date Resolved Date Postinflammatory skin changes 05/16/2013 Actinic skin damage 02/19/2013 06/07/2017 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 Eczematous dermatitis 08/15/2010 07/12/2013 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 Solar Lentigines 08/15/2010 06/07/2017 Melanocytic Nevus moles of trunk: chest and back 08/15/2010 07/12/2013 Melanocytic Nevus moles of arms: forearms 200907/12/2013 Unspecified sleep apnea 12/29/2008 05/25/20 11 Overview: Wearing CPAP 8 hours a night as of 01-03 Last sleep study about age 70 Diverticulosis of colon (without mention of hemo rrhage) 04/05/2005 06/07/2017 documented as of this encounter (statuses as of 02/18/2022) [facility] Narrative* Problem Noted Date Resolved Date Postinflammatory skin changes 05/16/2013 Actinic skin damage 02/19/2013 06/07/2017 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 Eczematous dermatitis 08/15/2010 07/12/2013 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 Solar Lentigines 08/15/2010 06/07/2017 Melanocytic Nevus moles of trunk: chest and back 08/15/2010 07/12/2013 Melanocytic Nevus moles of arms: forearms 200907/12/2013 Unspecified sleep apnea 12/29/2008 05/25/20 11 Overview: Wearing CPAP 8 hours a night as of 01-03 Last sleep study about age 70 Diverticulosis of colon (without mention of hemo rrhage) 04/05/2005 06/07/2017 documented as of this encounter (statuses as of 03/28/2022) [facility] Narrative* Problem Noted Date Resolved Date Postinflammatory skin changes 05/16/2013 Actinic skin damage 02/19/2013 06/07/2017 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 Eczematous dermatitis 08/15/2010 07/12/2013 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 Solar Lentigines 08/15/2010 06/07/2017 Melanocytic Nevus moles of trunk: chest and back 08/15/2010 07/12/2013 Melanocytic Nevus moles of arms: forearms 200907/12/2013 Unspecified sleep apnea 12/29/2008 05/25/20 11 Overview: Wearing CPAP 8 hours a night as of 01-03 Last sleep study about age 70 Diverticulosis of colon (without mention of hemo rrhage) 04/05/2005 06/07/2017 documented as of this encounter (statuses as of 05/09/2022) [facility] Narrative* Problem Noted Date Resolved Date Postinflammatory skin changes 05/16/2013 Actinic skin damage 02/19/2013 06/07/2017 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 Eczematous dermatitis 08/15/2010 07/12/2013 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 Solar Lentigines 08/15/2010 06/07/2017 Melanocytic Nevus moles of trunk: chest and back 08/15/2010 07/12/2013 Melanocytic Nevus moles of arms: forearms 200907/12/2013 Unspecified sleep apnea 12/29/2008 05/25/20 11 Overview: Wearing CPAP 8 hours a night as of 01-03 Last sleep study about age 70 Diverticulosis of colon (without mention of hemo rrhage) 04/05/2005 06/07/2017 documented as of this encounter (statuses as of 05/12/2022) [facility] Narrative* Problem Noted Date Resolved Date Postinflammatory skin changes 05/16/2013 Actinic skin damage 02/19/2013 06/07/2017 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 Eczematous dermatitis 08/15/2010 07/12/2013 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 Solar Lentigines 08/15/2010 06/07/2017 Melanocytic Nevus moles of trunk: chest and back 08/15/2010 07/12/2013 Melanocytic Nevus moles of arms: forearms 200907/12/2013 Unspecified sleep apnea 12/29/2008 05/25/20 11 Overview: Wearing CPAP 8 hours a night as of 01-03 Last sleep study about age 70 Diverticulosis of colon (without mention of hemo rrhage) 04/05/2005 06/07/2017 documented as of this encounter (statuses as of 05/31/2022) [facility] Narrative* Problem Noted Date Resolved Date Postinflammatory skin changes 05/16/2013 Actinic skin damage 02/19/2013 06/07/2017 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 Eczematous dermatitis 08/15/2010 07/12/2013 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 Solar Lentigines 08/15/2010 06/07/2017 Melanocytic Nevus moles of trunk: chest and back 08/15/2010 07/12/2013 Melanocytic Nevus moles of arms: forearms 200907/12/2013 Unspecified sleep apnea 12/29/2008 05/25/20 11 Overview: Wearing CPAP 8 hours a night as of 01-03 Last sleep study about age 70 Diverticulosis of colon (without mention of hemo rrhage) 04/05/2005 06/07/2017 documented as of this encounter (statuses as of 06/01/2022) [facility] Narrative* Problem Noted Date Resolved Date Postinflammatory skin changes 05/16/2013 Actinic skin damage 02/19/2013 06/07/2017 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 Eczematous dermatitis 08/15/2010 07/12/2013 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 Solar Lentigines 08/15/2010 06/07/2017 Melanocytic Nevus moles of trunk: chest and back 08/15/2010 07/12/2013 Melanocytic Nevus moles of arms: forearms 200907/12/2013 Unspecified sleep apnea 12/29/2008 05/25/20 11 Overview: Wearing CPAP 8 hours a night as of 01-03 Last sleep study about age 70 Diverticulosis of colon (without mention of hemo rrhage) 04/05/2005 06/07/2017 documented as of this encounter (statuses as of 09/28/2022) [facility] Narrative* Problem Noted Date Resolved Date Postinflammatory skin changes 05/16/2013 Actinic skin damage 02/19/2013 06/07/2017 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 Eczematous dermatitis 08/15/2010 07/12/2013 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 Solar Lentigines 08/15/2010 06/07/2017 Melanocytic Nevus moles of trunk: chest and back 08/15/2010 07/12/2013 Melanocytic Nevus moles of arms: forearms 200907/12/2013 Unspecified sleep apnea 12/29/2008 05/25/20 11 Overview: Wearing CPAP 8 hours a night as of 01-03 Last sleep study about age 70 Diverticulosis of colon (without mention of hemo rrhage) 04/05/2005 06/07/2017 documented as of this encounter (statuses as of 10/26/2022) [facility] note* Diagnosis Cellulitis of left leg- Primary Cellulitis and abscess of leg, except foot Left leg pain Pain in limb Fall on same level from slipping, tripping or stumbling, initial encounter Encounter for immunization Need for other specified prophylactic vaccination against single bacterial disease Wound of left lower extremity, initial encounter [facility] noteNo assessment information availableWMorrow [facility] Work Phone: Evaluation note* Diagnosis Cellulitis of left leg- Primary Cellulitis and abscess of leg, except foot Failure of outpatient treatment [facility] Diagnosis Abrasion of left lower leg with infection, subsequent encounter- Primary Cellulitis of left lower extremity Cellulitis and abscess of leg, except foot Essential hypertension Unspecified essential hypertension [facility] Diagnosis Abrasion of left lower leg with infection, subsequent encounter- Primary Essential hypertension Unspecified essential hypertension Impaired fasting glucose Hypomagnesemia Disorders of magnesium metabolism Anemia, unspecified type [facility] Diagnosis Essential hypertension- Primary Unspecified essential hypertension Longstanding persistent atrial fibrillation (HCC) Impaired fasting glucose Anemia, unspecified type Obstructive sleep apnea Obstructive sleep apnea (adult) (pediatric) [facility]* Diagnosis Lightheaded- Primary Dizziness and giddiness Testicular swelling Edema of male genital organs Vertigo Dizziness and giddiness [facility] Diagnosis Renal insufficiency- Primary Unspecified disorder of kidney and ureter Hypercalcemia [facility] Diagnosis Vertigo- Primary Dizziness and giddiness [facility] Diagnosis Testicular swelling Edema of male genital organs [facility]* Diagnosis Medicare annual wellness visit, subsequent- Primary Routine general medical examination at a health care facility Essential hypertension Unspecified essential hypertension Longstanding persistent atrial fibrillation (HCC) Atherosclerosis of [place] coronary artery of [place] heart without angina pectoris Hypomagnesemia Disorders of magnesium metabolism Impaired fasting glucose Hypercalcemia Pure hypercholesterolemia Need for COVID-19 vaccine [facility] Diagnosis Impaired fasting glucose- Primary Essential hypertension Unspecified essential hypertension Hypomagnesemia Disorders of magnesium metabolism Pure hypercholesterolemia [facility] Diagnosis Diarrhea, unspecified type- Primary Essential hypertension Unspecified essential hypertension [facility] Diagnosis Onset Date Resolution Status Atherosclerotic heart diseas e of [place] coronary artery without angina pectoris chronic Essential (primary) hypertension chronic Hyperlipidemia chronic Longstanding persistent atrial fibrillation chronic Dizziness resolved [facility] Work Phone: Evaluation note* Diagnosis Neuropathy- Primary Mononeuritis of unspecified site Orthostatic dizziness Abnormal gait Abnormality of gait [facility] Diagnosis Orthostatic dizziness Abnormal gait Abnormality of gait [facility] Diagnosis Muscle weakness (generalized) [M62.81]- Primary Muscle weakness (generalized) Abnormal gait Abnormality of gait Paresthesia of skin [R20.2] Disturbance of skin sensation [facility] Diagnosis Spinal stenosis of lumbar region, unspecified whether neurogenic claudication present- Primary Spinal stenosis of cervical region Spinal stenosis in cervical region Abnormal gait Abnormality of gait [facility] Diagnosis Abnormal gait- Primary Abnormality of gait Orthostatic dizziness Essential hypertension Unspecified essential hypertension [facility] Diagnosis Spinal stenosis of lumbar region, unspecified whether neurogenic claudication present Abnormal gait Abnormality of gait Spinal stenosis of cervical region Spinal stenosis in cervical region [facility] Spinal stenosis of lumbar region, unspecified whether neurogenic claudication present- Primary Cervical stenosis of spinal canal Spinal stenosis in cervical region [facility] Diagnosis Unsteadiness on feet- Primary Abnormality of gait Spinal stenosis of lumbar region, unspecified whether neurogenic claudication present Cervical stenosis of spinal canal Spinal stenosis in cervical region Orthostatic dizziness [facility] Diagnosis Spinal stenosis of lumbar region, unspecified whether neurogenic claudication present- Primary Cervical stenosis of spinal canal Spinal stenosis in cervical region Unsteadiness on feet Abnormality of gait Orthostatic dizziness [facility] Diagnosis Unsteadiness on feet- Primary Abnormality of gait Orthostatic dizziness Spinal stenosis of lumbar region without neurogenic claudication Spinal stenosis, lumbar region, without neurogenic claudication Cervical stenosis of spinal canal Spinal stenosis in cervical region [facility] Diagnosis Unsteadiness on feet- Primary Abnormality of gait Orthostatic dizziness Spinal stenosis of lumbar region without neurogenic claudication Spinal stenosis, lumbar region, without neurogenic claudication Cervical stenosis of spinal canal Spinal stenosis in cervical region [facility] Diagnosis Unsteadiness on feet- Primary Abnormality of gait Orthostatic dizziness Spinal stenosis of lumbar region without neurogenic claudication Spinal stenosis, lumbar region, without neurogenic claudication Cervical stenosis of spinal canal Spinal stenosis in cervical region [facility] Diagnosis Unsteadiness on feet- Primary Abnormality of gait Orthostatic dizziness Spinal stenosis of lumbar region without neurogenic claudication Spinal stenosis, lumbar region, without neurogenic claudication Cervical stenosis of spinal canal Spinal stenosis in cervical region [facility] Diagnosis At risk for falling- Primary Personal history of fall Need for influenza vaccination Need for prophylactic vaccination and inoculation against influenza Unsteadiness on feet Abnormality of gait Longstanding persistent atrial fibrillation (HCC) Essential hypertension Unspecified essential hypertension Atherosclerosis of [place] coronary artery of [place] heart without angina pectoris Screening for depression Encounter for screening examination for other mental health and behavioral disorders [facility] Diagnosis Abnormality of gait- Primary Orthostatic dizziness Abnormal gait Abnormality of gait Neuropathy Mononeuritis of unspecified site Spinal stenosis of lumbar region without neurogenic claudication Spinal stenosis, lumbar region, without neurogenic claudication [facility] Diagnosis Cellulitis of left leg Cellulitis and abscess of leg, except foot [facility] Diagnosis Spinal stenosis of lumbar region, unspecified whether neurogenic claudication present- Primary Abnormality of gait Parkinsonism, unspecified Parkinsonism type (HCC) [facility] Diagnosis Multifactorial gait disorder- Primary Abnormality of gait Abnormal gait Abnormality of gait Spinal stenosis of lumbar region, unspecified whether neurogenic claudication present Neuropathy Mononeuritis of unspecified site Hypertension, unspecified type Screening for diabetes mellitus (DM) Screening for diabetes mellitus [facility] Diagnosis Proteinuria, unspecified type- Primary [facility] Diagnosis Medicare annual wellness visit, subsequent- Primary Routine general medical examination at a health care facility Longstanding persistent atrial fibrillation (HCC) Essential hypertension Unspecified essential hypertension Atherosclerosis of [place] coronary artery of [place] heart without angina pectoris Abnormal gait Abnormality of gait Impaired fasting glucose Pure Hypercholesterolemia Pure hypercholesterolemia [facility] Diagnosis Rash- Primary Rash and other nonspecific skin eruption [facility] Additional Instructions Area of redness was outlined today. Please continue your antibiotics. If the erythema has extended beyond this line after another 24 to 40 hours of antibiotics you need to be seen again. Please return for thick drainage, increasing redness or pain, fever.[facility] Work Phone: Reason for referral (narrative)* Diagnostic Procedure Only (Urgent) - Closed Specialty Diagnoses / Procedures Referred By Daniel berkowitz Referred To Contact XR IMAGING Diagnoses Cellulitis of left leg Procedures XR TIBIA FIBULA 2V AP/LAT LEFT RADIOLOGIC EXAMINATION TIBIA & FIBULA 2 VIEWS Lisa Brantley APRN.CNP [address] [place] [address] Xr Imaging Referral ID Status Reason Start Date Expiration Date V isits Requested Visits Authorized [id number] Closed Auto-Generate d Referral 02/07/2022 03/09/2023 1 1 [facility] for referral (narrative)* Diagnostic Procedure Only (Routine) - Closed Specialty Diagnoses / Procedures Referred By Taraac t Referred To Contact US IMAGING Diagnoses Testicular swelling Procedures US SCROTUM AND CONTENTS US SCROTUM & CONTENTS Mehrdad Victor MD [address] [place] [address] Us Imaging Referral ID Status Reason Start Date Expiration Date V isits Requested Visits Authorized [id number] Closed Auto-Generate d Referral 05/09/2022 06/08/2023 1 1 [facility] for referral (narrative)* Diagnostic Procedure Only (Urgent) - Closed Specialty Diagnoses / Procedures Referred By Contac t Referred To Contact XR IMAGING Diagnoses Cellulitis of left leg Procedures XR TIBIA FIBULA 2V AP/LAT LEFT RADIOLOGIC EXAMINATION TIBIA & FIBULA 2 VIEWS Lisa Brantley APRN.[employer] [address] [place] [address] [place] [address] Referral ID Status Reason Start Date Expiration Date V isits Requested Visits Authorized [id number] Closed Auto-Generate d Referral 02/07/2022 03/09/2023 1 1 [facility] for visit Narrative* Diagnostic Procedure Only (Routine) - Closed Specialty Diagnoses / Procedures Referred By Daniel berkowitz Referred To Contact US IMAGING Diagnoses Testicular swelling Procedures US SCROTUM AND CONTENTS US SCROTUM & CONTENTS Mehrdad Victor MD [address] [place] [address] Us Imaging Referral ID Status Reason Start Date Expiration Date V isits Requested Visits Authorized [id number] Closed Auto-Generate d Referral 05/09/2022 06/08/2023 1 1 [facility] for visit Narrative* Diagnostic Procedure Only (Urgent) - Closed Specialty Diagnoses / Procedures Referred By Daniel berkowitz Referred To Contact XR IMAGING Diagnoses Cellulitis of left leg Procedures XR TIBIA FIBULA 2V AP/LAT LEFT RADIOLOGIC EXAMINATION TIBIA & FIBULA 2 VIEWS Lisa Brantley APRN.FISHING [employer]SEL [employer] [address] [place] [address] [place] [address] Referral ID Status Reason Start Date Expiration Date V isits Requested Visits Authorized [id number] Closed Auto-Generate d Referral 02/07/2022 03/09/2023 1 1 [facility] Advance Directives No Advanced Directives Records FoundDocuments on File Type Date Recorded Patient Mobile Device Developer Expl anation Advance Directive(s) 09/28/2011 12:00 AM Advance Directive(s) 10/13/2006 12:00 AM Advance Directive Response Recorded Date/ Time Advance Directives Yes June 11:39am Living Will Yes February 08, 2022 11:38am Power of Hemstitching Machine Operator Yes February 08 11:38am Documents on File Type Date Recorded Patient Mobile Device Developer Expl anation Advance Directive(s) 09/28/2011 12:00 AM Advance Directive(s) 10/13/2006 12:00 AM Documents on File Type Date Recorded Patient Mobile Device Developer Expl anation Advance Directive(s) 09/28/2011 Advance Directive(s) 10/13/2006 Documents on File Type Date Recorded Patient Mobile Device Developer Expl anation Advance Directive(s) 09/28/2011 Advance Directive(s) 10/13/2006 Advance Directive Response Recorded Date/ Time Advance Directives Yes June 10:39am Living Will Yes February 08, 2022 10:38am Power of Hemstitching Machine Operator Yes February 08 10:38am Chief Complaint and Reason for Visit Chief Complaint CELLULITIS Chief Complaint Request by Dr. Cristy le; near syncope Reason for Visit Atherosclerotic hear t disease of [place] coronary artery without angina pectoris Essential (primary) hypertension Hyperlipidemia Longstanding persistent atrial fibrillation Dizziness Chief Complaint Request by Dr. Cristy le; near syncope Dizziness ESTELA TO READ 30 DAY MONITOR Longstanding persistent atrial fibrillation Longstanding persistent atrial fibrillation PALP Reason for Visit Atherosclerotic hear t disease of [place] coronary artery without angina pectoris Essential (primary) hypertension Hyperlipidemia Longstanding persistent atrial fibrillation Dizziness Reason for Referral Specialty Diagnoses / Procedures Referred By Daniel t Referred To Contact [facility] Diagnoses Vertigo Procedures CONSULT TO PHYSICAL THERAPY PHYSICAL THERAPY EVALUATION HIGH COMPLEX 45 MINS Mehrdad Victor MD [address] [place] [address] [facility] [address] [place] [address] Referral ID Status Reason Start Date Expiration Date Visits Requested Visits Authorized [id number] Authorized PCP Requested Referral Auto-Generate d Referral 05/09/2022 05/09/2023 99 99 Specialty Diagnoses / Procedures Referred By Daniel t Referred To Contact US IMAGING Diagnoses Testicular swelling Procedures US SCROTUM AND CONTENTS US SCROTUM & CONTENTS Mehrdad Victor MD [address] [place] [address] Us Imaging Referral ID Status Reason Start Date Expiration Date Visits Requested Visits Authorized [id number] Authorized Auto-Generat ed Referral 05/09/2022 06/08/2023 1 1 Specialty Diagnoses / Procedures Referred By Contac t Referred To Contact MR IMAGING Diagnoses Orthostatic dizziness Abnormal gait Procedures MRI BRAIN WO IVCON MRI BRAIN BRAIN STEM W/O CONTRAST MATERIAL Marsha Arias PA-C [address] [place] [address] [place] [address] Referral ID Status Reason Start Date Expiration Date Visits Requested Visits Authorized [id number] Authorized Auto-Generat ed Referral 12/05/2023 01/03/2025 1 1 Specialty Diagnoses / Procedures Referred By Contac t Referred To Contact [facility] Diagnoses Abnormal gait Procedures EMG(NEURO/NI) NERVE CONDUCTION STUDIES 9-10 STUDIES Marsha Arias PA-C [address] [place] [address] [facility] [place] [address] [place] [id number] Referral ID Status Reason Start Date Expiration Date Visits Requested Visits Authorized [id number] Pending Review Auto-Generat ed Referral 12/05/2023 12/04/2024 1 1 Referral ID Status Reason Start Date Expiration Date V isits Requested Visits Authorized [id number] Closed Auto-Generate d Referral 12/05/2023 01/03/2025 1 1 Specialty Diagnoses / Procedures Referred By Contac t Referred To Contact MR IMAGING Diagnoses Spinal stenosis of cervical region Abnormal gait Procedures MRI CERVICAL SPINE WO IVCON MRI SPINAL CANAL CERVICAL W/O CONTRAST MATRL Marsha Arias PA-C [address] [place] [address] [place] [address] Referral ID Status Reason Start Date Expiration Date Visits Requested Visits Authorized [id number] Authorized Auto-Generat ed Referral 01/19/2024 02/17/2025 1 1 Specialty Diagnoses / Procedures Referred By Contac t Referred To Contact MR IMAGING Diagnoses Spinal stenosis of lumbar region, unspecified whether neurogenic claudication present Abnormal gait Procedures MRI LUMBAR SPINE WO IVCON MRI SPINAL CANAL LUMBAR W/O CONTRAST MATERIAL Marsha Arias PA-C [address] [place] [address] [place] [address] Referral ID Status Reason Start Date Expiration Date Visits Requested Visits Authorized [id number] Authorized Auto-Generat ed Referral 01/19/2024 02/17/2025 1 1 Referral ID Status Reason Start Date Expiration Date V isits Requested Visits Authorized [id number] Closed Auto-Generate d Referral 01/19/2024 02/17/2025 1 1 Referral ID Status Reason Start Date Expiration Date V isits Requested Visits Authorized [id number] Closed Auto-Generate d Referral 01/19/2024 02/17/2025 1 1 Specialty Diagnoses / Procedures Referred By Contac t Referred To Contact Neurology Diagnoses Spinal stenosis of lumbar region, unspecified whether neurogenic claudication present Cervical stenosis of spinal canal Procedures CONSULT TO NEUROLOGY OFFICE/OUTPATIENT [facility] 60 MINUTES Marsha Arias PA-C [address] [place] [address] Referral ID Status Reason Start Date Expiration Date Visits Requested Visits Authorized [id number] Authorized PCP Requested Referral 01/25/2024 01/24/2025 1 1 Specialty Diagnoses / Procedures Referred By Contac t Referred To Contact [facility] Diagnoses Spinal stenosis of lumbar region, unspecified whether neurogenic claudication present Cervical stenosis of spinal canal Unsteadiness on feet Orthostatic dizziness Procedures CONSULT TO PHYSICAL THERAPY PHYSICAL THERAPY EVALUATION HIGH COMPLEX 45 MINS Marsha Arias PA-C [address] [place] [address] [facility] [place] [address] [place] [address] Referral ID Status Reason Start Date Expiration Date Visits Requested Visits Authorized [id number] Authorized PCP Requested Referral Auto-Generate d Referral 01/26/2024 01/25/2025 99 99 Specialty Diagnoses / Procedures Referred By Contac t Referred To Contact Neurology Diagnoses Abnormality of gait Procedures CONSULT TO NEUROLOGY OFFICE/OUTPATIENT [facility] 60 MINUTES Marsha Arias PA-C [address] [place] [address] Referral ID Status Reason Start Date Expiration Date Visits Requested Visits Authorized [id number] Authorized PCP Requested Referral 05/22/2024 05/22/2025 1 1 Summary Purpose Family History No Family History Records Found Additional Source Comments Source Comments (unrecognize d section and content) In the event this informatio n is protected by the Federal Confidentiality of Alcohol and Drug Abuse Patient Records regulations: The Federal rules restrict any use of the information to criminally investigate or prosecute any alcohol or drug abuse patient.[facility] the event this information is protected by the Federal Confidentiality of Alcohol and Drug Abuse Patient Records regulations: The Federal rules restrict any use of the information to criminally investigate or prosecute any alcohol or drug abuse patient.[facility] [place] [facility] the event this information is protected by the Federal Confidentiality of Alcohol and Drug Abuse Patient Records regulations: The Federal rules restrict any use of the information to criminally investigate or prosecute any alcohol or drug abuse patient.[facility] [place] [facility] the event this information is protected by the Federal Confidentiality of Alcohol and Drug Abuse Patient Records regulations: The Federal rules restrict any use of the information to criminally investigate or prosecute any alcohol or drug abuse patient.[facility] [place] [facility] the event this information is protected by the Federal Confidentiality of Alcohol and Drug Abuse Patient Records regulations: The Federal rules restrict any use of the information to criminally investigate or prosecute any alcohol or drug abuse patient.[facility] [place] [facility] the event this information is protected by the Federal Confidentiality of Alcohol and Drug Abuse Patient Records regulations: The Federal rules restrict any use of the information to criminally investigate or prosecute any alcohol or drug abuse patient.[facility] [place] [facility] the event this information is protected by the Federal Confidentiality of Alcohol and Drug Abuse Patient Records regulations: The Federal rules restrict any use of the information to criminally investigate or prosecute any alcohol or drug abuse patient.[facility] [place] [facility]In the event this information is protected by the Federal Confidentiality of Alcohol and Drug Abuse Patient Records regulations: The Federal rules restrict any use of the information to criminally investigate or prosecute any alcohol or drug abuse patient.[facility] [place] [facility]In the event this information is protected by the Federal Confidentiality of Alcohol and Drug Abuse Patient Records regulations: The Federal rules restrict any use of the information to criminally investigate or prosecute any alcohol or drug abuse patient.[facility] [place] [facility]In the event this information is protected by the Federal Confidentiality of Alcohol and Drug Abuse Patient Records regulations: The Federal rules restrict any use of the information to criminally investigate or prosecute any alcohol or drug abuse patient.[facility] [place] [facility]In the event this information is protected by the Federal Confidentiality of Alcohol and Drug Abuse Patient Records regulations: The Federal rules restrict any use of the information to criminally investigate or prosecute any alcohol or drug abuse patient.[facility] [place] [facility]In the event this information is protected by the Federal Confidentiality of Alcohol and Drug Abuse Patient Records regulations: The Federal rules restrict any use of the information to criminally investigate or prosecute any alcohol or drug abuse patient.[facility] [place] [facility]In the event this information is protected by the Federal Confidentiality of Alcohol and Drug Abuse Patient Records regulations: The Federal rules restrict any use of the information to criminally investigate or prosecute any alcohol or drug abuse patient.[facility] [place] [facility]In the event this information is protected by the Federal Confidentiality of Alcohol and Drug Abuse Patient Records regulations: The Federal rules restrict any use of the information to criminally investigate or prosecute any alcohol or drug abuse patient.[facility] [place] [facility]In the event this information is protected by the Federal Confidentiality of Alcohol and Drug Abuse Patient Records regulations: The Federal rules restrict any use of the information to criminally investigate or prosecute any alcohol or drug abuse patient.[facility] HospitalIn the event this information is protected by the Federal Confidentiality of Alcohol and Drug Abuse Patient Records regulations: The Federal rules restrict any use of the information to criminally investigate or prosecute any alcohol or drug abuse patient.[facility] [place] [facility] HospitalIn the event this information is protected by the Federal Confidentiality of Alcohol and Drug Abuse Patient Records regulations: The Federal rules restrict any use of the information to criminally investigate or prosecute any alcohol or drug abuse patient.[facility]In the event this information is protected by the Federal Confidentiality of Alcohol and Drug Abuse Patient Records regulations: The Federal rules restrict any use of the information to criminally investigate or prosecute any alcohol or drug abuse patient.[facility] [place] [facility] HospitalIn the event this information is protected by the Federal Confidentiality of Alcohol and Drug Abuse Patient Records regulations: The Federal rules restrict any use of the information to criminally investigate or prosecute any alcohol or drug abuse patient.[facility] HospitalIn the event this information is protected by the Federal Confidentiality of Alcohol and Drug Abuse Patient Records regulations: The Federal rules restrict any use of the information to criminally investigate or prosecute any alcohol or drug abuse patient.[facility]In the event this information is protected by the Federal Confidentiality of Alcohol and Drug Abuse Patient Records regulations: The Federal rules restrict any use of the information to criminally investigate or prosecute any alcohol or drug abuse patient.[facility] [place] [facility]In the event this information is protected by the Federal Confidentiality of Alcohol and Drug Abuse Patient Records regulations: The Federal rules restrict any use of the information to criminally investigate or prosecute any alcohol or drug abuse patient.[facility]In the event this information is protected by the Federal Confidentiality of Alcohol and Drug Abuse Patient Records regulations: The Federal rules restrict any use of the information to criminally investigate or prosecute any alcohol or drug abuse patient.[facility]In the event this information is protected by the Federal Confidentiality of Alcohol and Drug Abuse Patient Records regulations: The Federal rules restrict any use of the information to criminally investigate or prosecute any alcohol or drug abuse patient.[facility]In the event this information is protected by the Federal Confidentiality of Alcohol and Drug Abuse Patient Records regulations: The Federal rules restrict any use of the information to criminally investigate or prosecute any alcohol or drug abuse patient.[facility] [place] [facility]In the event this information is protected by the Federal Confidentiality of Alcohol and Drug Abuse Patient Records regulations: The Federal rules restrict any use of the information to criminally investigate or prosecute any alcohol or drug abuse patient.[facility]In the event this information is protected by the Federal Confidentiality of Alcohol and Drug Abuse Patient Records regulations: The Federal rules restrict any use of the information to criminally investigate or prosecute any alcohol or drug abuse patient.[facility]In the event this information is protected by the Federal Confidentiality of Alcohol and Drug Abuse Patient Records regulations: The Federal rules restrict any use of the information to criminally investigate or prosecute any alcohol or drug abuse patient.[facility]In the event this information is protected by the Federal Confidentiality of Alcohol and Drug Abuse Patient Records regulations: The Federal rules restrict any use of the information to criminally investigate or prosecute any alcohol or drug abuse patient.[facility] HospitalIn the event this information is protected by the Federal Confidentiality of Alcohol and Drug Abuse Patient Records regulations: The Federal rules restrict any use of the information to criminally investigate or prosecute any alcohol or drug abuse patient.[facility] HospitalIn the event this information is protected by the Federal Confidentiality of Alcohol and Drug Abuse Patient Records regulations: The Federal rules restrict any use of the information to criminally investigate or prosecute any alcohol or drug abuse patient.[facility] HospitalIn the event this information is protected by the Federal Confidentiality of Alcohol and Drug Abuse Patient Records regulations: The Federal rules restrict any use of the information to criminally investigate or prosecute any alcohol or drug abuse patient.[facility] [place] [facility] HospitalIn the event this information is protected by the Federal Confidentiality of Alcohol and Drug Abuse Patient Records regulations: The Federal rules restrict any use of the information to criminally investigate or prosecute any alcohol or drug abuse patient.[facility] [place] [facility] HospitalIn the event this information is protected by the Federal Confidentiality of Alcohol and Drug Abuse Patient Records regulations: The Federal rules restrict any use of the information to criminally investigate or prosecute any alcohol or drug abuse patient.[facility] HospitalIn the event this information is protected by the Federal Confidentiality of Alcohol and Drug Abuse Patient Records regulations: The Federal rules restrict any use of the information to criminally investigate or prosecute any alcohol or drug abuse patient.[facility] HospitalIn the event this information is protected by the Federal Confidentiality of Alcohol and Drug Abuse Patient Records regulations: The Federal rules restrict any use of the information to criminally investigate or prosecute any alcohol or drug abuse patient.[facility] [place] [facility] HospitalIn the event this information is protected by the Federal Confidentiality of Alcohol and Drug Abuse Patient Records regulations: The Federal rules restrict any use of the information to criminally investigate or prosecute any alcohol or drug abuse patient.[facility] [place] [facility] HospitalIn the event this information is protected by the Federal Confidentiality of Alcohol and Drug Abuse Patient Records regulations: The Federal rules restrict any use of the information to criminally investigate or prosecute any alcohol or drug abuse patient.[facility] [place] [facility] HospitalIn the event this information is protected by the Federal Confidentiality of Alcohol and Drug Abuse Patient Records regulations: The Federal rules restrict any use of the information to criminally investigate or prosecute any alcohol or drug abuse patient.[facility] [place] [facility] HospitalIn the event this information is protected by the Federal Confidentiality of Alcohol and Drug Abuse Patient Records regulations: The Federal rules restrict any use of the information to criminally investigate or prosecute any alcohol or drug abuse patient.[facility] [place] [facility] HospitalIn the event this information is protected by the Federal Confidentiality of Alcohol and Drug Abuse Patient Records regulations: The Federal rules restrict any use of the information to criminally investigate or prosecute any alcohol or drug abuse patient.[facility] Reason for Visit (unrecogniz ed section and content) Reason Comments Physical Therapy Specialty Diagnoses / Procedures Referred By Daniel berkowitz Referred To Contact [facility] Diagnoses Spinal stenosis of lumbar region, unspecified whether neurogenic claudication present Cervical stenosis of spinal canal Unsteadiness on feet Orthostatic dizziness Procedures CONSULT TO PHYSICAL THERAPY PHYSICAL THERAPY EVALUATION HIGH COMPLEX 45 MINS Marsha Arias PA-C [address] [place] [address] [facility] [address] [place] [address] Referral ID Status Reason Start Date Expiration Date Visits Requested Visits Authorized [id number] Authorized PCP Requested Referral Auto-Generate d Referral 01/26/2024 01/25/2025 99 99 Reason Comments Trauma left leg injury, fel l and cut bottom of leg x 1 week Reason Comments Established Patient hospital follow up- cellulitis left lower leg 02/08 Reason Comments Recheck 1 week follow up Reason Comments F/U 6 months Reason Comments swollen testicles Dizziness Reason Comments Results Reason Comments PT Discharge Specialty Diagnoses / Procedures Referred By Contac t Referred To Contact [facility] Diagnoses Vertigo Procedures CONSULT TO PHYSICAL THERAPY PHYSICAL THERAPY EVALUATION HIGH COMPLEX 45 MINS Mehrdad Victor MD [address] [place] [address] [facility] [place] [address] [place] [address] Referral ID Status Reason Start Date Expiration Date Visits Requested Visits Authorized [id number] Authorized PCP Requested Referral Auto-Generate d Referral 05/09/2022 05/09/2023 99 99 Reason Comments Medicare Wellness Exam Reason Comments 4 week follow-up Reason Comments Orders Diarrhea Reason Comments Diarrhea X 1.5 weeks Reason Comments New Patient New Pt c/o dizziness 1.5 yrs, Hx x2 falls. Specialty Diagnoses / Procedures Referred By Contac t Referred To Contact Neurology Diagnoses Orthostatic dizziness Abnormal gait Procedures CONSULT TO NEUROLOGY OFFICE/OUTPATIENT NEW HIGH MDM 60 MINUTES Ang Vickers MD [address] [place] [address] Referral ID Status Reason Start Date Expiration Date V isits Requested Visits Authorized [id number] Closed PCP Requested Referral 11/22/2023 11/21/2024 1 1 Reason Comments EMG BLOOD THINNER POLICY Specialty Diagnoses / Procedures Referred By Contac t Referred To Contact MR IMAGING Diagnoses Orthostatic dizziness Abnormal gait Procedures MRI BRAIN WO IVCON MRI BRAIN BRAIN STEM W/O CONTRAST MATERIAL Marsha Arias PA-C [address] [place] [address] [place] [address] Referral ID Status Reason Start Date Expiration Date V isits Requested Visits Authorized [id number] Closed Auto-Generate d Referral 12/05/2023 01/03/2025 1 1 Reason Comments Procedure Specialty Diagnoses / Procedures Referred By Contac t Referred To Contact [facility] Diagnoses Abnormal gait Procedures EMG(NEURO/NI) NERVE CONDUCTION STUDIES 9-10 STUDIES Marsha Arias PA-C [address] [place] [address] [facility] [place] [address] [place] [address] Referral ID Status Reason Start Date Expiration Date V isits Requested Visits Authorized [id number] Closed Auto-Generate d Referral 12/05/2023 12/04/2024 1 1 Reason Comments Results Reason Comments Follow Up Specialty Diagnoses / Procedures Referred By Contac t Referred To Contact MR IMAGING Diagnoses Spinal stenosis of lumbar region, unspecified whether neurogenic claudication present Abnormal gait Procedures MRI LUMBAR SPINE WO IVCON MRI SPINAL CANAL LUMBAR W/O CONTRAST MATERIAL Marsha Arias PA-C [address] [place] [address] [place] [address] Referral ID Status Reason Start Date Expiration Date V isits Requested Visits Authorized [id number] Closed Auto-Generate d Referral 01/19/2024 02/17/2025 1 1 Reason Comments Results Reason Comments Follow Up 6 week follow up Reason Comments PT Eval Reason Onset Date Comments 4 month follow-up Immunizations 05/20/2024 Flu vaccination Reason Comments Follow Up Reason Comments requesting a disk MRI disk being reque sted Reason Comments abnormality of gait Specialty Diagnoses / Procedures Referred By Contac t Referred To Contact Neurology Diagnoses Abnormality of gait Procedures CONSULT TO NEUROLOGY OFFICE/OUTPATIENT NEW HIGH MDM 60 MINUTES Marsha Arias PA-C [address] [place] [address] Referral ID Status Reason Start Date Expiration Date V isits Requested Visits Authorized [id number] Closed PCP Requested Referral 05/22/2024 05/22/2025 1 1 Reason Comments Received Outside Medical Records Externa l referral to [facility] [place] Reason Comments New Patient Possible PD Reason Comments Rash Reason Comments Derm Problem Care Teams (unrecognized sec tion and content) Customer Care Associate Relationship Specialty Start Date End Date Ang Vickers MD [address] [place] [address] PCP - General 11/17/09 Customer Care Associate Relationship Specialty Start Date End Date Ang Vickers MD [address] [facility] [place] [address] PCP - General 11/17/09 Customer Care Associate Relationship Specialty Start Date End Date Ang Vickers MD [address] [facility] [address] PCP - General 11/17/09 Customer Care Associate Relationship Specialty Start Date End Date Ang Vickers MD [address] [facility] [address] PCP - General 11/17/09 Customer Care Associate Relationship Specialty Start Date End Date Ang Vickers MD [address] [facility] [address] PCP - General 11/17/09 Customer Care Associate Relationship Specialty Start Date End Date Ang Vickers MD [address] [facility] [address] PCP - General 11/17/09 Customer Care Associate Relationship Specialty Start Date End Date Ang Vickers MD [address] [facility] [address] PCP - General 11/17/09 Customer Care Associate Relationship Specialty Start Date End Date Ang Vickers MD [address] [facility] [address] PCP - General 11/17/09 Customer Care Associate Relationship Specialty Start Date End Date Ang Vickers MD [address] [place] [address] PCP - General 11/17/09 Customer Care Associate Relationship Specialty Start Date End Date Ang Vickers MD [address] [place] [address] PCP - General 11/17/09 Customer Care Associate Relationship Specialty Start Date End Date Ang Vickers MD [address] [place] [address] PCP - General 11/17/09 Team Status: Active Member Role Status Dates Dr. Ang Vickers MD Family Provider Active Dr. Ang Vickers MD Primary Care Provider Active Team Status: Inactive Member Role Status Dates Dr. Ang Vickers MD Primary Care Provider, Refer ring Provider Active Aguilar Carrion CRIMINALIST, CRIMINALIST-C Attending Provider Active Team Status: Inactive Member Role Status Dates Dr. Ang Vickers MD Primary Care Provider Active Dr. Altaf Manning DPM Attending Provider, Referri ng Provider Active Team Status: Active Member Role Status Dates Dr. Ang Vickers MD Primary Care Provider Active Dr. Newton Palmer MD Attending Provider Active Aguilar Carrion CRIMINALIST, CRIMINALIST-C Referring Provider Active Team Status: Active Member Role Status Dates Dr. Ang Vickers MD Primary Care Provider Active Aguilar Carrion CRIMINALIST, CRIMINALIST-C Referring Provider, Other Provide r Active Dr. Newton Palmer MD Attending Provider Active Team Status: Active Member Role Status Dates Dr. Ang Vickers MD Primary Care Provider Active Dr. Newton Palmer MD Attending Provider Active Team Status: Active Member Role Status Dates Dr. Ang Vickers MD Primary Care Provider Active Aguilar Carrion CRIMINALIST, CRIMINALIST-C Attending Provider Active Team Status: Inactive Member Role Status Dates Dr. Ang Vickers MD Primary Care Provider Active Aguilar Carrion CRIMINALIST, CRIMINALIST-C Attending Provider, Referring Pro vider Active Team Status: Active Member Role Status Dates Dr. Ang Vickers MD Primary Care Provider Active Aguilar Carrion CRIMINALIST, CRIMINALIST-C Attending Provider, Referring Pro vider Active Customer Care Associate Relationship Specialty Start Date End Date Ang Vickers MD [address] [place] [address] PCP - General 11/17/09 Customer Care Associate Relationship Specialty Start Date End Date Ang Vickers MD [address] [place] [address] PCP - General 11/17/09 Customer Care Associate Relationship Specialty Start Date End Date Ang Vickers MD [address] [place] [address] PCP - General 11/17/09 Customer Care Associate Relationship Specialty Start Date End Date Ang Vickers MD [address] [place] [address] PCP - General 11/17/09 Customer Care Associate Relationship Specialty Start Date End Date Ang Vickers MD [address] [place] [address] PCP - General 11/17/09 Customer Care Associate Relationship Specialty Start Date End Date Ang Vickers MD [address] [place] [address] PCP - General 11/17/09 Customer Care Associate Relationship Specialty Start Date End Date Ang Vickers MD [address] [place] [address] PCP - General 11/17/09 Customer Care Associate Relationship Specialty Start Date End Date Ang Vickers MD [address] [place] [address] PCP - General 11/17/09 Customer Care Associate Relationship Specialty Start Date End Date Ang Vickers MD [address] [place] [address] PCP - General 11/17/09 Customer Care Associate Relationship Specialty Start Date End Date Ang Vickers MD [address] [place] [address] PCP - General 11/17/09 Customer Care Associate Relationship Specialty Start Date End Date Ang Vickers MD [address] [place] [address] PCP - General 11/17/09 Customer Care Associate Relationship Specialty Start Date End Date Ang Vickers MD [address] [place] [address] PCP - General 11/17/09 Customer Care Associate Relationship Specialty Start Date End Date Ang Vickers MD [address] [place] [address] PCP - General 11/17/09 Customer Care Associate Relationship Specialty Start Date End Date Ang Vickers MD [address] [place] [address] PCP - General 11/17/09 Customer Care Associate Relationship Specialty Start Date End Date Ang Vickers MD [address] [place] [address] PCP - General 11/17/09 Customer Care Associate Relationship Specialty Start Date End Date Ang Vickers MD [address] [place] [address] PCP - General 11/17/09 Customer Care Associate Relationship Specialty Start Date End Date Ang Vickers MD [address] [place] [address] PCP - General 11/17/09 Customer Care Associate Relationship Specialty Start Date End Date Ang Vickers MD [address] [place] [address] PCP - General 11/17/09 Customer Care Associate Relationship Specialty Start Date End Date Ang Vickers MD [address] [place] [address] PCP - General 11/17/09 Daniela Muir, GRINDER AND PLATER.FISHING VESSEL DECKHAND [address] [place] [address] Sample Taker Operator Internal Medicine 08/05/24 Customer Care Associate Relationship Specialty Start Date End Date Ang Vickers MD [address] [place] [address] PCP - General 11/17/09 Daniela Muir, GRINDER AND PLATER.FISHING VESSEL DECKHAND [address] [place] [address] Sample Taker Operator Internal Medicine 08/05/24 Customer Care Associate Relationship Specialty Start Date End Date Ang Vickers MD [address] [place] [address] PCP - General 11/17/09 Daniela Muir, GRINDER AND PLATER.FISHING VESSEL DECKHAND [address] [place] [address] Sample Taker Operator Internal Medicine 08/05/24 Customer Care Associate Relationship Specialty Start Date End Date Ang Vickers MD [address] [place] [address] PCP - General 11/17/09 Daniela Muir, GRINDER AND PLATER.FISHING VESSEL DECKHAND [address] [place], [place] [address] Sample Taker Operator Internal Medicine 08/05/24 Customer Care Associate Relationship Specialty Start Date End Date Ang Vickers MD [address] [place], [place] [address] PCP - General 11/17/09 Daniela Muir, GRINDER AND PLATER.FISHING VESSEL DECKHAND [address] [place], [place] [address] Sample Taker Operator Internal [facility] 08/05/24 Customer Care Associate Relationship Specialty Start Date End Date Ang Vickers MD [address] [place], [place] [address] PCP - General 11/17/09 Daniela Muir, GRINDER AND PLATER.FISHING VESSEL DECKHAND [address] [place], [place] [address] Sample Taker Operator Internal [facility] 08/05/24 Goals (unrecognized section and content) Goals may be documented in a n alternate sectionGoals may be documented in an alternate sectionGoals may be documented in an alternate sectionGoals may be documented in an alternate section (unrecognized sect ion and content) No Status Records FoundNo Status Records Found INFORMATION SOURCE (unrecogn ized section and content) DATE CREATED AUTHOR 10/05/2024 [facility] DATE CREATED AUTHOR AUTHOR'S SANDRO ATION 01/10/2025 [facility] FOR RECORDS PERTAINING TO PATIENTS WHO ARE OR HAVE BEEN ENROLLED IN A CHEMICAL DEPENDENCY/SUBSTANCEABUSE PROGRAM, SOME INFORMATION MAY BE OMITTED. This clinical summary was aggregated from multiple sources. Caution should be exercised in using it in the provision of clinical care. This summary normalizes information from multiple sources, and as a consequence, information in this document may materially change the coding, format and clinical context of patient data. In addition, data may be omitted in some cases. CLINICAL DECISIONS SHOULD BE BASED ON THE PRIMARY CLINICAL RECORDS. [facility]. provides no warranty or guarantee of the accuracy or completeness of information in this document.
--- NOTE | 2025-04-01 22:44 | CT_ITS ---
PROCEDURE: BRAIN/HEAD WITHOUT CONTRAST 04/01/2025 REASON FOR EXAM: FALL TECHNIQUE: BRAIN/HEAD WITHOUT CONTRAST Coronal and Sagittal reconstruction series were provided. One or more dose reduction techniques were used (e.g., Automated exposure control, adjustment of the mA and/or kV according to patient size, use of iterative reconstruction technique. RADIATION DOSE SUMMARY: CTDlvol: 45 mGy DLP: 864 mGycm COMPARISON: 06/05/2021 FINDINGS: Diffuse atrophy. Arterial calcifications. Mild white matter change. No acute abnormal brain densities. No intracranial hemorrhage. No hydrocephalus or midline shift. Bilateral lens extraction. Left-sided scleral banding. No acute scalp or skull pathology. Mild sinus mucosal thickening. CT/Brain/Head without Contrast IMPRESSION: No acute findings Reading Location: [place] [address]
--- NOTE | 2025-04-01 22:48 | EDS_ITS ---
HPI History of Present Illness Chief Complaint: Fall Informant: patient and family Narrative Narrative: Patient is an 89-year-old male with past medical history of hypertension hyperlipidemia and persistent atrial fibrillation on Eliquis. He states he was outside working in the yard today and has had some lower extremity discomfort/soreness from this. 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 He reports that he was watching the baseball game this evening and he got up to walk into the kitchen while carrying a bowl of popcorn. He states that he lost his balance and fell. He reports this happened roughly 1 hour prior to arrival. He states he did not strike his head or have loss of consciousness but family believes he did hit his head. He also reports has been having some left hip pain since the fall. As he is on a blood thinner there was concern for internal trauma and he was brought in for evaluation. 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) Essential (primary) hypertension BPH associated with nocturia Hyperlipidemia TIA (transient ischemic attack) (09/14/18) Home Medications ?Medication ?Instructions ?Recorded ?Last Taken ?Type finasteride 5 mg tablet 5 mg PO DAILY prostate 09/1409/13/18 History multivitamin 1 ea PO DAILY vitamin 09/13/18 History apixaban 5 mg tablet (Eliquis) 5 mg PO BID #60 tabs 07/13/20 Rx tamsulosin 0.4 mg capsule (Flomax) 0.4 mg PO DAILY 05/18 Unknown History atorvastatin 40 mg tablet 40 mg PO DAILY 03/15/23 Unkn own History lisinopril 40 mg tablet 40 mg PO DAILY 03/15/23 Unkn own History vitamins A,C,R-jdzl-rancxw 4,296 1 cap PO BID 09/26/23 Unknown History mcg-226 mg-90 mg capsule (PreserVision AREDS) furosemide 40 mg tablet 40 mg PO Q OTHER DAY #45 tab s 05/07/24 Unknown Rx metoprolol succinate 100 mg 100 mg PO DAILY 10/03/24 U nknown History tablet,extended release 24 hr Allergy/AdvReac Type Severity Reaction Status Date / Time No Known Allergies Allergy Verified 04/01/25 22:20 Family History Father Heart disease Surgical History History of carpal tunnel release (10/2020) History of cardioversion (07/13/20) History of left heart catheterization (05/25/20) History of total knee arthroplasty History of repair of rotator cuff History of total left hip replacement (2011) Social History Smoking Status: Former smoker how long ago did patient quit smokin alcohol intake: current alcohol intake frequency: a few times a week substance use type: does not use caffeine: Yes Type: coffee Number of servings: 1 ROS ROS ED Constitutional Constitutional ED: Denies chills or fever(s) Eyes Eyes: Denies blurry vision or change in vision ENT ENT ED: Denies sore throat Cardiovascular Cardiovascular: Reports palpitations and other Details: Negative syncope ; Denies chest pain or racing heartbeat Respiratory/Chest Respiratory/Chest: Denies cough or dyspnea Gastrointestinal Gastrointestinal: Denies abdominal pain, diarrhea, nausea or vomiting Musculoskeletal Musculoskeletal: Reports other Details: Positive left hip pain ; Denies back pain or neck pain Integumentary Denies rash Neurologic Neurologic: Denies headache(s) Hematologic/Lymphatic Hematologic/Lymphatic: Reports easy bleeding and easy bruising EXAM Physical Exam Const Vital Signs: 04/01/25 22:18 04/01/25 22:23 04/01/25 22:25 Temperature 98.3 F Temperature Source Oral Pulse Rate 43 L 70 Respiratory Rate 16 18 Respiratory Effort Normal Non-Labored Respiratory Depth Normal Respiratory Pattern Normal Blood Pressure 140/71 H Blood Pressure Mean 94 Pulse Ox 97 96 Oxygen Delivery Method Room Air Room Air Room Air 04/01/25 23:39 Temperature 98.3 F Temperature Source Pulse Rate 84 Respiratory Rate 17 Respiratory Effort Respiratory Depth Respiratory Pattern Blood Pressure 149/81 H Blood Pressure Mean 103 Pulse Ox 95 Oxygen Delivery Method Positive well nourished and well developed General Appearance ED: well developed; Negative for pallor HEENT HEENT Narrative: Normocephalic atraumatic No signs of depressed or basilar skull fracture Eyes PERRL and EOMs intact bilaterally General Eye ED: Negative for pale conjunctiva or scleral icterus Neck supple Neck Narrative: No bony deformity or step-off of the cervical spine no midline tenderness to palpation Patient can move his neck in all directions without difficulty or pain Chest Wall palpation of chest normal Chest Narrative: No bony deformity or subcutaneous emphysema noted Resp normal respiratory effort and clear to auscultation bilaterally Cardio regular rate Rate: other Other Details: Irregularly irregular rhythm with regular rate consistent with longstanding atrial fibrillation GI normal to inspection, nondistended, normoactive bowel sounds, non-tender, non- distended and no masses Auscultation: normoactive bowel sounds Palpation: soft Back/Spine Back/Spine Narrative: No bony deformity or step-off of the thoracic or lumbar spine no midline tenderness to palpation Extremity Extremity Narrative: Pelvis is stable; there is no shortening or external rotation of either lower extremity There is mild pain with palpation of the left hip near the greater trochanter without obvious bony deformity or joint effusion Patient has +2-3 pitting edema to the bilateral lower extremities that is equal and symmetric and chronic per patient Negative Homans' sign bilaterally No obvious signs of long bone injury such as bony deformity or joint effusion Neuro oriented x3, CN's II-XII intact bilaterally and no sensory deficits noted Sensorium / Orientation: alert Motor Exam: strength 5/5 throughout Psych mental status grossly normal Skin no rashes or lesions noted General Skin Exam: Negative for jaundice or pallor MDM MDM MDM Narrative Medical decision making narrative: Patient presented to the ER hypertensive but has a past medical history of this and otherwise with stable vitals. He reported a mechanical fall and therefore I felt no need for cardiac or syncope workup. He denies striking his head but family had concerned that he did moreover he is on Eliquis and even if he did not hit his head there is concern for rupture of bridging vessels secondary to blood thinner use and his age. Therefore CT the head was obtained to rule out a subarachnoid or subdural hemorrhage. A left hip x-ray 1 view pelvis was ordered to rule out potential fracture or pubic rami injury. CT and x-ray revealed no acute findings which does correlate with his exam and neurologic status. The patient was able to ambulate with a walker in the ER without pain or unsteadiness. Therefore at this time with workup revealing no signs of underlying trauma and the patient able to ambulate without difficulty there is no need for further intervention and he is otherwise safe for discharge History & Record Review Discussion w/independent historian: Patient and Family Radiography Diagnostic Testing: Clinical Impression(s) from Imaging Studies Brain CT 04/01/25 22:44 IMPRESSION: No acute findings Reading Location: [place] [address] Hip/Pelvis X-Ray 04/01/25 23:05 IMPRESSION: 1. No evidence of acute fracture or dislocation. 2. Left hip arthroplasty with intact hardware. 3. 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, Essential (primary) hypertension, Hyperlipidemia, Longstanding persistent atrial fibrillation Instructions: Anticoagulants, ED Hip Contusion Prescriptions: No Action atorvastatin 40 mg tablet 40 mg PO DAILY lisinopril 40 mg tablet 40 mg PO DAILY PreserVision AREDS 4,296 mcg-226 mg-90 mg capsule 1 cap PO BID metoprolol succinate 100 mg tablet extended release 24 hr 100 mg PO DAILY multivitamin 1 EACH tablet 1 ea PO DAILY finasteride 5 MG tablet 5 mg PO DAILY tamsulosin [Flomax] 0.4 mg Capsule 0.4 mg PO DAILY Eliquis 5 mg tablet 5 mg PO BID Qty: 60 12RF furosemide 40 mg tablet 40 mg PO Q OTHER DAY Qty: 45 3RF Primary Care Provider: Ang Vickers Referrals: Ang Vickers MD [Primary Care Provider] - Activity Restrictions/Additional Instructions: Your imaging study showed no sign of brain bleed or skull fracture or damage to your left hip. Please continue all of your home medications as directed by your doctor and return to the ER should you have any further concerns Print Language: Ukrainian Disposition Disposition: Home, Self Care Discharge Date/Time: 04/01/25 23:44
--- NOTE | 2025-04-01 23:05 | RAD_ITS ---
PROCEDURE: HIP, UNI W/ PELVIS 2-3 VIEWS 04/01/2025 REASON FOR EXAM: FALL TECHNIQUE: HIP, UNI W/ PELVIS 2-3 VIEWS COMPARISON: None. FINDINGS: No evidence of acute fracture or dislocation. Left hip hemiarthroplasty appears intact without evidence for loosening or failure. Moderate degenerative arthrosis of the right hip joint. Degenerative changes of the lower lumbosacral spine. Atherosclerotic vascular calcifications. RAD/HIP, UNI W/ Pelvis 2-3 Views IMPRESSION: 1. No evidence of acute fracture or dislocation. 2. Left hip arthroplasty with intact hardware. 3. 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 Reading Location: [id number]
[2025-04-01 23:39] VITALS: BP 149/81; PULSE 84; RESP 17; TEMP 36.8; O2SAT 95
== END 2025-04-01 23:44 | disposition home or self-care (01) ==
PROVIDERS: Emergency Provider Emergency Medicine; PCP Internal Medicine; Visit Provider Emergency Medicine
DX: S70.02XA Contusion of left hip, initial encounter (principal); I48.11 Longstanding persistent atrial fibrillation; I25.10 Atherosclerotic heart disease of native coronary artery without angina pectoris; I10 Essential (primary) hypertension; Z79.01 Long term (current) use of anticoagulants; Z87.891 Personal history of nicotine dependence; W19.XXXA Unspecified fall, initial encounter
CPT/HCPCS: 70450; 73502; 99284

== ENCOUNTER 2025-07-11 00:40 | Emergency (ER) | payer MEDICARE, OTHER, SELFPAY ==
[2025-07-11 00:41] VITALS: BP 134/80; PULSE 64; RESP 17; TEMP 36.9; O2SAT 97; BMI 27.9
--- NOTE | 2025-07-11 01:05 | CT_ITS ---
PROCEDURE: BRAIN/HEAD WITHOUT CONTRAST 07/11/2025 REASON FOR EXAM: FALL TECHNIQUE: Procedure Code: CTBR Modality: CT Procedure: BRAIN/HEAD WITHOUT CONTRAST Coronal and Sagittal reconstruction series were provided. One or more dose reduction techniques were used (e.g., Automated exposure control, adjustment of the mA and/or kV according to patient size, use of iterative reconstruction technique. RADIATION DOSE SUMMARY: CTDlvol: 44.99 mGy DLP: 897 mGycm COMPARISON: 04/01/2025. FINDINGS: Mild diffuse cortical atrophy, commensurate with the patient's age. Scattered hypodense foci in the periventricular and subcortical white matter suggestive of chronic ischemic white matter disease. Normal size of the ventricles and extra-axial spaces for the patient's age. Normal basal ganglia and thalami. Normal brainstem. Normal cerebellum. There is no demonstrated extra-axial, intraparenchymal, or intraventricular hemorrhage. There are no findings of an acute ischemic infarction. Normal calvarium. There is no demonstrated fracture. Normal soft tissue structures. Mild chronic mucosal inflammatory changes of the visualized paranasal sinuses. CT/Brain/Head without Contrast IMPRESSION: No CT evidence of an acute brain abnormality. Reading Location[facility]
--- OUTSIDE RECORDS SUMMARY | 2025-07-11 01:07 | XMS RPT_ITS | CCD ---
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 Ang Vickers Primary Care Provider Dr. Ang Vickers Referring Provider Roof SOFTWARE TECHNICIAN, SOFTWARE TECHNICIAN-C Aguilar Crowder Attending Provider Dr. Ang Vickers Primary Care Provider Dr. Ang Vickers Referring Provider Roof SOFTWARE TECHNICIAN, SOFTWARE TECHNICIAN-C Aguilar Crowder Attending Provider Dr. Newton Palmer Attending Provider Roof SOFTWARE TECHNICIAN, SOFTWARE TECHNICIAN-C Aguilar Crowder Referring Provider Roof SOFTWARE TECHNICIAN, SOFTWARE TECHNICIAN-C Aguilar Crowder Other Provider Ang Vickers MD Primary Care Provider Ang Vickers MD Primary Care Provider Isadora MOLD HOLDER.MOLD HOLDER, Daniela M Unavailable Dr. Ang Vickers MD Primary Care Provider Dr. Donald Murry DO Emergency Provider Dr. Ang Vickers MD Referring Provider Roof SOFTWARE TECHNICIAN-C, Aguilar Crowder Attending Provider Ang Vickers Primary Care Unavailable Sheyla SOFTWARE TECHNICIAN, Aguilar Crowder Attending Unavailable Ang Vickers Referring Unavailable Gideon SOFTWARE TECHNICIAN, Kristi Referring Unavailable Gideon SOFTWARE TECHNICIAN, Kristi Attending Unavailable Ang Vickers Primary Care Unavailable Vickers, Ang Primary Care Unavailable Donald Murry Attending Unavailable Sheyla SOFTWARE TECHNICIAN, Aguilar H Attending Unavailable Vickers, Ang Referring Unavailable Vickers, Ang Primary Care Unavailable VICKERS, SUSANA Attending Unavailable VICKERS, SUSANA Primary Care Unavailable AARONBRUCE Referring Unavailable VICKERS, SUSANA Primary Care Unavailable AARON, BRUCE Referring Unavailable VICKERS, SUSANA Primary Care Unavailable VICKERS, SUSANA Attending Unavailable VICKERS, SUSANA Primary Care Unavailable AARON, BRUCE Attending Unavailable VICKERS, SUSANA Primary Care Unavailable AARON, BRUCE Referring Unavailable VICKERS, SUSANA Primary Care Unavailable VICKERS, SUSANA Referring Unavailable VICKERS, SUSANA Primary Care Unavailable VICKERS, SUSANA Attending Unavailable VICKERS, SUSANA Primary Care Unavailable VICKERS, SUSANA Attending Unavailable VICKERS, SUSANA Primary Care Unavailable Allergies Allergy Classification Reported Allergen(s) Allergy Type Date of Onset Reaction(s) Facility Baclofen (1 source) Baclofen Drug Allergy 10-02-2018 Other: See Comments [facility] Work Phone: (20 sources) Baclofen Drug Allergy 10-02-2018 Other: See Comments [facility] Work Phone: Medications Current Medications Medication Drug Class(es) Dates Sig (Normalized) Sig (Original) apixaban 5 mg oral tablet (20 sources) Factor Xa Inhibitor Start: 06-11-2020 End: 06-15-2020 take 1 tablet by mouth twice daily Apixaban (Eliquis) 5 mg tablet Active 5 mg PO TWICE A DAY 60 June 15, 2020 10:31am Comment on above: Take 5 mg by mouth t wice daily. atorvastatin 40 mg oral tablet (20 sources) HMG-CoA Reductase Inhibitor Start: 09-28-2022 take 1 tablet by mouth once daily at bedtime for hyperlipidemia atorvastatin (LIPITOR) 40 mg tablet Take 1 tablet by mouth daily at bedtime. For cholesterol. [facility] medication. 09/28/2022 Active Start: 09-21-2020 End: 09-28-2022 take 1 tablet by mouth once daily at bedtime for hyperlipidemia atorvastatin (LIPITOR) 20 mg tablet Indications: Pure hypercholesterolemia , Atherosclerosis of coronary artery of [place] heart without angina pectoris, unspecified vessel or lesion type Take 1 tablet by mouth daily at bedtime. For cholesterol to replace SIMVASTATIN. 90 tablet 3 09/21/2020 09/28/2022 Discontinued Start: 09-15-2018 End: 05-05-2020 take 1 tablet by mouth at bedtime Atorvastatin 40 MG tablet Discontinued 40 mg PO AT BEDTIME 30 0 September 15, 2018 1:00am May 05, 2020 8:36pm Comment on above: Take 1 tablet by yuli th daily at bedtime. For cholesterol to replace SIMVASTATIN. Take 1 tablet by yuli th daily at bedtime. For cholesterol. [facility] medication. COMPOUNDED PRESCRIPTION (20 sources) Start: 06-26-2017 [...] 7 days. Take 1 tablet by yuli twice daily for 5 days. finasteride 5 mg oral tablet (20 sources) 5-alpha Reductase Inhibitor Start: take 1 tablet by mouth once daily finasteride (PROSCAR) 5 mg tablet Indications: BPH with obstruction/lower urinary tract symptoms Take 1 tablet by mouth once daily. VA medication. 01/01/2020 Active Comment on above: Take 1 tablet by yuli once daily. VA medication. furosemide 40 mg oral tablet (20 sources) Loop Diuretic Start: take 1 tablet by mouth every other day furosemide (LASIX) 40 mg tablet Indications: Essential hypertension Take 1 tablet by mouth every other day. 05/20/2024 Active Start: 04-18-2024 End: 05-07-2024 take 2 tablets by mouth every other day Furosemide (Lasix) 20 mg tablet Discontinued 40 mg PO every other day 45 3 April 18, 2024 11:43am May 07, 2024 11:57am Start: 10-02-2023 End: 04-18-2024 take 1 tablet by mouth every other day Furosemide (Lasix) 20 mg tablet Discontinued 20 mg PO every other day 45 3 October 02, 2023 10:44am April 18, 2024 11:44am Start: 03-15-2023 End: 09-26-2023 take 1 tablet by mouth once daily Furosemide (Lasix) 20 mg tablet Discontinued 20 mg PO DAILY March 15, 2023 12:00am September [...] with radiology test) (2 sources) Start: End: inject 1 dose intravenously once iv contrast [...] (20 sources) Angiotensin Converting Enzyme Inhibitor Start: take 1 tablet by mouth once daily lisinopril (ZESTRIL, PRINIVIL) 40 mg tablet Take 1 tablet by mouth once daily. VA medication. 09/28/2022 Active Comment on above: Take 1 tablet by yuli th once daily. VA medication. 24 hr metoprolol succinate 100 mg extended release oral tablet (20 sources) beta-Adrenergic Henry Start: 024 take 1 tablet by mouth once daily metoprolol succinate ER (TOPROL XL) 100 mg Indications: Atherosclerosis of [place] coronary artery of [place] heart without angina pectoris Take 1 tablet by mouth once daily. 05/20/2024 Active Start: 04-04-2024 End: 10-03-2024 Metoprolol Succinate 100 mg tablet extended release 24 hr Discontinued 75 mg PO DAILY April 04, 2024 9:33am October 03, 2024 10:25am Start: 11-22-2023 End: 05-20-2024 take 75 mg by mouth once daily metoprolol succinate ER (TOPROL XL) 100 mg Indications: Atherosclerosis of [place] coronary artery of [place] heart without angina pectoris Take 75 mg by mouth once daily. 11/22/2023 05/20/2024 Discontinued Start: 09-26-2023 End: 04-04-2024 take 1 tablet by mouth once daily Metoprolol Succinate 100 mg tablet extended release 24 hr Discontinued 100 mg PO DAILY September 26, 2023 1:00am April 04, 2024 9:34am Start: 04-29-2020 End: 05-06-2020 take 1 tablet by mouth once daily Metoprolol Succinate 25 MG tablet extended release 24 hr Discontinued 25 mg PO DAILY 30 0 April 29, 2020 12:00am May 06, 2020 9:59am Start: 02-26-2020 End: 09-26-2023 take 1 tablet by mouth once daily Metoprolol Succinate (Toprol Xl) 50 mg tablet extended release 24 hr Discontinued 50 mg PO DAILY 90 3 May 13, 2020 1:05pm September 26, 2023 3:04pm Start: 02-26-2020 End: 09-25-2023 take 1 tablet by mouth once daily metoprolol succinate ER (TOPROL XL) 50 mg 24 hr tablet Indications: Longstanding persistent atrial fibrillation (HCC) Take 100 mg by mouth once daily. 02/26/2020 09/25/2023 Discontinued Comment on above: Take 1 tablet by yuli once daily. Multivitamin 1 EACH tablet (2 sources) Start: 09-14-2018 Multivitamin 1 EACH tablet Active 1 NMA PO DAILY September 14, 2018 1:00am vitamin MULTIVITAMIN ORAL TAB (20 sources) Start: 04-05-2005 [...] Comment on above: Take 1 capsule by [facility] daily at bedtime. vit A/vit C/vit E/zinc/copper (PRESERVISION AREDS ORAL) (7 sources) vit A/vit C/vit E/zinc/copper (PRESERVISION AREDS ORAL) Take by mouth. Active Vitamins A,C,K-Qxiy-Ocuwrj (Preservision Areds) 4,296 mcg-226 mg-90 mg capsule (5 sources) Start: 09-26-2023 Vitamins A,C,V-Nmed-Jkteor (Preservision Areds) 4,296 mcg-226 mg-90 mg capsule Active 1 NMA PO TWICE A DAY September 26, 2023 1:00am Start: 09-26-2023 take 1 capsule by [facility] twice daily Vitamins A,C,S-Oevz-Wqrits (Preservision Areds) 4,296 mcg-226 mg-90 mg capsule Active 1 CAP PO TWICE A DAY September 26, 2023 1:00am Start: 09-26-2023 take 1 capsule by [facility] twice daily Vitamins A,C,M-Egpz-Yzhvws (Preservision Areds) 4,296 mcg-226 mg-90 mg capsule Active 1 CAP PO TWICE A DAY September 26, 2023 12:00am Completed/Discontinued Medications Medication Drug Class(es) Dates Sig (Normalized) Sig (Original) aspirin 81 mg chewable tablet (12 sources) Platelet Aggregation Inhibitor, Nonsteroidal Anti-inflammatory Drug Start: 09-15-2018 End: 03-15-2023 take 1 tablet by mouth once daily Aspirin 81 mg tablet,chewable Discontinued 81 mg PO DAILY@0800 30 1 May 18, 2020 9:56am March 15, 2023 8:33am baclofen 20 mg oral tablet (6 sources) gamma-Aminobutyric Acid-ergic Agonist Start: 09-14-2018 End: 09-15-2018 take 1 tablet by mouth three times daily as needed for pain Baclofen 20 MG tablet Discontinued 20 mg PO 3 TIMES DAILY NEEDED as needed for Pain September 14, 2018 1:00am September 15, 2018 11:49am clopidogrel 75 mg oral tablet (6 sources) P2Y12 Platelet Inhibitor Start: 05-18-2020 End: 05-30-2020 take 1 tablet by mouth once daily Clopidogrel (Plavix) 75 mg tablet Discontinued 75 mg PO DAILY May 18, 2020 12:00am May 30, 2020 4:42pm diazePAM 2 mg oral tablet (6 sources) Benzodiazepine Start: 06-05-2021 End: 09-26-2023 take 1 tablet by mouth three times daily as needed Diazepam 2 MG tablet Discontinued 2 mg PO 3 TIMES DAILY NEEDED as needed for Vertigo 10 0 June 05, 2021 12:00am September 26, 2023 3:05pm gabapentin 300 mg oral capsule (6 sources) Anti-epileptic Agent Start: 08-17-2020 End: 02-23-2021 take 1 capsule by mouth once daily Gabapentin 300 mg capsule Discontinued 300 mg PO DAILY August 17, 2020 1:00am February 23, 2021 10:41am hydroCHLOROthiazide 12.5 mg / lisinopril 20 mg oral tablet (20 sources) Thiazide Diuretic, Angiotensin Converting Enzyme Inhibitor Start: 05-06-2020 End: 03-15-2023 Lisinopril-[place] chlorothiazide 20-12.5 mg tablet Discontinued 1 {tbl} PO TWICE A DAY May 06, 2020 9:38am March 15, 2023 8:32am blood pressure Start: 05-06-2020 End: 03-15-2023 take 1 tablet by mouth twice daily Lisinopril-Hydrochlorothiazide Discontin ued 1 TABLET PO TWICE A DAY May 06, 2020 9:38am March 15, 2023 8:32am Start: 09-14-2018 End: 09-28-2022 Lisinopril-Hydrochlorothiazi de 1 EACH tablet Discontinued 1 NMA PO DAILY September 14, 2018 1:00am May 06, 2020 9:39am blood pressure Start: 09-14-2018 End: 05-06-2020 Lisinopril-Hydrochlorothiazi de Discontinued 1 EACH PO DAILY September 14, 2018 1:00am May 06, 2020 9:39am Comment on above: Take 2 tablets by mo [facility] once daily. VA medication. LOW-DOSE ASPIRIN [...] once daily. naproxen 500 mg oral tablet (6 sources) Nonsteroidal Anti-inflammatory Drug Start: 9 End: 0 take 1 tablet by mouth twice daily Naproxen 500 MG tablet Discontinued 500 mg PO TWICE A DAY September 14, 2018 1:00am May 05, 2020 8:37pm hip pain OTC PRODUCT (20 sources) End: 5 take [...] Comment on above: [facility] PreserVision simvastatin 40 mg oral tablet (12 sources) HMG-CoA Reductase Inhibitor Start: 0 End: 3 take 1 tablet by mouth at bedtime Simvastatin 40 mg tablet Discontinued 40 mg PO AT BEDTIME May 05, 2020 12:00am March 15, 2023 8:32am Start: 09-14-2018 End: 09-15-2018 take 1 tablet by mouth at bedtime Simvastatin 40 MG tablet Discontinued 40 mg PO AT BEDTIME September 14, 2018 1:00am September 15, 2018 11:49am cholesterol Problems Active Problems Problem Classification Problem Date Documented Da te Episodic/Chronic Cardiac dysrhythmias (20 sources) Atrial fibrillation; Translations: [Unspecified atrial fibrillation] Onset: 04-29-2020 09-21-2020 Chronic Conditions associated with dizziness or vertigo (20 sources) Dizziness; Translations: [Dizziness and giddiness] Onset: 05-31-2022 Resolved: 05-20-2024 Episodic Coronary atherosclerosis and other heart disease (20 sources) Coronary atherosclerosis; Translations: [Atherosclerotic heart disease of [place] coronary artery without angina pectoris] Onset: 09-21-2020 09-21-2020 Chronic Deficiency and other anemia (2 sources) Anemia; Translations: [Anemia, unspecified] Episodic Disorders of lipid metabolism (20 sources) Pure hypercholesterolemia ; Translations: [Pure hypercholesterolemia , unspecified] Onset: 04-05-2005 07-12-2013 Chronic E Codes: Fall (3 sources) Fall on same level from slipping, tripping [...] Chronic Immunizations and screening for infectious disease (7 sources) Patient encounter status; Translations: [Encounter for immunization] Onset: 05-27-2025 Episodic Occlusion or stenosis of precerebral arteries (20 sources) Stenosis of left vertebral artery; Translations: [Occlusion and stenosis of left vertebral artery] Onset: 10-08-2018 10-08-2018 Chronic Open wounds of extremities (1 source) Disorder of lower extremity; Translations: [Unspecified open wound, left lower leg, initial encounter] Episodic Other aftercare (2 sources) Long-term current use of anticoagulant; Translations: [penitentiary (current) use of anticoagulants] 04-01-2025 Episodic Other connective tissue disease (1 source) [...] injuries and conditions due to external causes (14 sources) At risk for falls ; Translations: [History of falling] Onset: 05-20-2024 05-20-2024 Episodic Other lower respiratory disease (8 sources) Dyspnea on exertion; Translations: [Dyspnea, unspecified] 02-22-2021 Episodic Other male genital disorders (2 sources) Swelling of testicle; Translations: [Other specified disorders of the male genital organs] Episodic Other nervous system disorders (3 sources) Neuropathy; Translations: [Polyneuropathy, unspecified] 12-05-2023 Chronic Other nervous system disorders (1 source) Polyneuropathy, unspecified; Translations: [Neuropathy] Onset: 09-19-2024 Chronic Other nervous system disorders (20 sources) Abnormal gait; Translations: [Unspecified abnormalities of gait and mobility] Onset: 11-22-2023 12-05-2023 Episodic Other nervous system disorders (1 source) Paresthesia; Translations: [Paresthesia of skin] 01-19-2024 Episodic Other nervous system disorders (20 sources) Unsteady when standing; Translations: [Unsteadiness on feet] Onset: 02-07-2024 01-26-2024 Episodic Other nervous system disorders (1 source) Multifactorial gait problem; Translations: [Other abnormalities of gait and mobility] 09-19-2024 Episodic Other nervous system disorders (1 source) Other abnormalities of gait and mobility; Translations: [Multifactorial gait disorder] Onset: 05-21-2025 Episodic Other non-traumatic joint disorders (1 source) Pain in left hip; Translations: [Pain in left hip] Onset: 04-07-2025 Episodic Other nutritional; endocrine; and metabolic disorders (2 sources) Hypercalcemia; Translations: [Hypercalcemia] Chronic Other skin disorders (1 source) Eruption; Translations: [Rash and other nonspecific skin eruption] 01-09-2025 Episodic Residual codes; unclassified (20 sources) Obstructive sleep apnea syndrome; Translations: [Obstructive sleep apnea (adult) (pediatric)] Onset: 08-16-2010 08-23-2021 Chronic Residual codes; unclassified (1 source) Other specified health status; Translations: [Other specified conditions influencing health status] Episodic Screening and history of mental health and substance abuse codes (2 sources) Encounter for screening for depression; Translations: [Encounter for screening examination for other mental health and behavioral disorders] Onset: 05-27-2025 Episodic Skin and subcutaneous tissue infections (10 sources) Cellulitis of left lower limb; Translations: [Cellulitis of left lower limb] Episodic Superficial injury; contusion (4 sources) Abrasion, left lower leg, subsequent encounter; Translations: [Other specified aftercare] Episodic Syncope (5 sources) Syncope; Translations: [Syncope and collapse] 09-26-2023 Episodic Unclassified (1 source) Parkinsonism; Translations: [Parkinsonism, unspecified Parkinsonism type (HCC)] 07-23-2024 Chronic Unclassified (1 source) Longstanding persistent atrial fibrillation; Translations: [Longstanding persistent atrial fibrillation] Onset: 04-02-2025 Unclassified (1 source) Parkinsonism, unspecified Parkinsonism type (HCC); Translations: [Parkinsonism, unspecified Parkinsonism type (HCC)] Onset: 05-21-2025 Unclassified (1 source) Radiology NM Onset: 05-21-2025 Past or Other Problems Problem Classification Problem Date Documented Date Episodic/Chronic Allergic reactions (20 sources) Psoriasiform eczema; Translations: [Other specified dermatitis] Onset: 08-15-2010 Resolved: 06-07-2017 07-12-2013 Episodic Diabetes mellitus without complication (20 sources) Impaired fasting glycemia; Translations: [Impaired fasting glucose] Onset: 02-18-2022 Episodic Diverticulosis and diverticulitis (20 sources) Diverticulosis of colon; Translations: [Diverticulosis of large intestine without perforation or abscess without bleeding] Onset: 04-05-2005 Resolved: 06-07-2017 06-07-2017 Chronic Genitourinary symptoms and ill-defined conditions (2 sources) Proteinuria; Translations: [Proteinuria, unspecified] Onset: 10-09-2024 10-09-2024 Episodic Other and unspecified benign neoplasm (20 [...] injuries and conditions due to external causes (1 source) History of falling; Translations: [At risk for falling] Onset: 05-20-2024 Episodic Other lower respiratory disease (1 source) Other forms of dyspnea; Translations: [Other forms of dyspnea] Onset: 05-01-2024 Episodic Other nervous system disorders (1 source) Unsteadiness on feet; Translations: [Unsteadiness on feet] Onset: 02-07-2024 Episodic Other nervous system disorders (1 source) Unspecified abnormalities of gait and mobility; Translations: [Abnormal gait] Onset: 11-22-2023 Episodic Other nutritional; endocrine; and metabolic disorders [...] changes] Onset: 05-16-2013 Resolved: 06-07-2017 06-07-2017 Episodic Other skin disorders (1 source) Rash and other nonspecific skin eruption; Translations: [Rash] Onset: 01-09-2025 Episodic Residual codes; unclassified (20 sources) Sleep apnea; Translations: [Sleep apnea, unspecified] Onset: 12-29-2008 Resolved: 05-25-2011 08-23-2021 Chronic Spondylosis; intervertebral disc disorders; other back problems (20 sources) Spinal stenosis of lumbar region; Translations: [Spinal stenosis, lumbar region without neurogenic claudication] Onset: 02-07-2024 01-19-2024 Episodic Results Test Name Value Interpretation Reference Range Facility [facility] 06-13-2025 [facility] Telephone (INTMWS) ELYSE MALONEY ([id number]) 1935 M Date Time Provider Department 06/13/25 ANG VICKERS INTWS During your visit today, we recorded the following information about you: Jennifer Wiseman RN 06/13/2025 12:21 PM Signed Pt reports he had ov with pcp and pcp ordered a tilt table test. Reports he spoke with SANDRA Muñoz, in Dr. Palmer office yesterday, who called him to discuss his symptoms for tilt table test. SANDRA Muñoz told pt he was going to send a message to pcp. Pt reports Dino Carrion, was not sure if tilt table test was what he needed and mentioned Physical therapy as an option. Pt asking if pcp got message from Dino Carrion, and what is your opinion on Dino Carrion's advice. Pt asking pcp to advise and either send [facility] message to him or call him. Ang Vickers MD 06/13/2025 2:34 PM Signed Aguilar Carrion can have his opinion. However, we have decided to pursue a tilt table test and I have ordered the test. Miya Olea MA 06/16/2025 9:17 AM Signed Patient was notified and will call [facility] to schedule HUMPHREY Charles Krystle, RN 06/16/2025 9:52 AM Signed Patient calls and reports that the orders for tilt table test need to be faxed to [facility] for scheduling as it is not done with Aguilar Carrion's direct office. Faxed to [phone] as requested. Patient aware to follow up with [facility] for scheduling. RODRIGUE Katz Sherrie, RN 06/20/2025 2:24 PM Signed Flory, a nurse with [facility] calling in to give message to Dr. Vickers. Flory states that per Dr. Palmer at [facility], he has reviewed pt's chart and has decided not to do the tilt table test for patient that was ordered by Dr. Vickers; states it is not appropriate or safe for the pt. Patient has appt with [facility] again soon and Dr. Palmer will see pt then. RODRIGUE Thacker M Robin, RN 06/30/2025 9:37 AM Signed , Yenny, phoned to let pcp know she scheduled a tilt table test at [facility] for 07/15/25. Reports she is confused, as patient was told [facility] cancelled this and doesn't want to do it, yet it was scheduled. States she just wants to know from Dr. Vickers- do you want him to go ahead with the tilt table test. If you do, patient will do it. States she trusts your opinion and would like to know from you if patient should do this test. Please advise and phone with reply: [phone] Ang Vickers MD 07/02/2025 1:06 PM Signed I recommended he have the tilt table test, which is why I referred him. Elaine Jackson LPN 07/02/2025 1:19 PM Signed Spoke to Elyse, states he is all set, tilt table test is scheduled. Elaine Jackson LPN Allergies As of Date: 06/13/2025 (No Active Allergies) Date Reviewed: 05/27/2025 Reviewed by: Elaine Jackson LPN - Fully Assessed Reason for Visit: Patient Question [7727] Patient Update [[id number]] Prescriptions as of 07/02/2025 - folic acid 800 mcg tablet Take 400 mcg by mouth once daily. - cyanocobalamin (VITAMIN B-12) 1,000 mcg tab Take 1,000 mcg by mouth once daily. - vit A/vit C/vit E/zinc/copper (PRESERVISION AREDS ORAL) Take by mouth. - furosemide (LASIX) 40 mg tablet Take 1 tablet by mouth every other day. - metoprolol succinate ER (TOPROL XL) 100 mg Take 1 tablet by mouth once daily. - atorvastatin (LIPITOR) 40 mg tablet Take [...] tablet daily. 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 [facility] 05-27-2025 CNOV Office Visit (INTMWS ) ELYSE MALONEY ([id number]) 1935 M Date Time Provider Department 05/27/25 10:00 AM ANG VICKERS INTMWS During your visit today, we recorded the following information about you: Temperature Pulse Blood pressure Weight 97.6 degrees 56/minute 116/54 85.3 kg Ang Vickers MD 05/28/2025 2:00 AM Signed Subjective Elyse Maloney is a 89 year old male. Recording using [employer] software for draft documentation of the visit was discussed with the patient/authorized authorization representative; all questions welcomed and answered. Patient/authorized authorization representative agreed to proceed Elyse is an 89-year-old male with a history of vertebra and nerve issues presenting for follow-up of falling spells.Falling Spells and Unsteadiness:Elyse and his caregiver report that he has experienced multiple falls. They recall an emergency department visit on April 01 at [facility] after a hard fall at home, during which a scan was performed to rule out a brain bleed and a hip X-ray showed no fracture. He reports significant bruising from that event, which has since improved. He describes not knowing precisely how he fell on that occasion and feeling unsteady when he stands. His caregiver states that he cannot stand by himself for long and that he often becomes dizzy. They express concern about ongoing instability and the risk of injury, noting that he now uses a life alert system (obtained 2 weeks ago) for added safety. According to the caregiver, he sees a [employer] [facility] [employer] who has found his heart function to be stable. They add that he has not undergone a formal tilt table test with this [employer]. He is on a blood thinner, and both he and his caregiver worry about the potential severity of injuries if he continues to fall. He routinely uses a walking stick for stability.Vertebra and Nerve Issues:He states that he still contends with vertebra-related nerve problems that affect his balance once he stands. A surgeon, identified as Dr. Jane, indicated that surgery could address his vertebral concerns but voiced caution about his age and the risk of cardiac or cerebrovascular complications during surgery. Elyse has not decided whether to pursue it. He had a special scan on the May 21 as part of his evaluation, after which the neurologist indicated that Parkinson's disease was unlikely. He remains concerned that the ongoing nerve issue may contribute to his falling spells. He reports that taking a moment to orient himself upon standing helps decrease his instability. The caregiver affirms that they felt the neurological evaluation was thorough, though they were initially surprised by the negative findings for Parkinson's. 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 cyanocobalamin (VITAMIN B-12) 1,000 mcg tab Take 1,000 mcg by mouth once daily. vit A/vit C/vit E/zinc/copper (PRESERVISION AREDS ORAL) [...] facility-administered medications for this visit. Objective BP 116/54 (BP Site: Right Arm, BP Position: Sitting, BP Cuff Size: Large Adult) Pulse (!) 56 Temp 36.4 ?C (97.6 ?F) (Tempora (more content not included)... Normal [facility] BRAIN TREMOR SPECT/CTon 0 05-21-2025 NM BRAIN TREMOR SPECT/CT * * *Final Report* * * DATE OF EXAM: May 21 2025 11:44AM [facility] 0088 - [place] BRAIN TREMOR SPECT/CT / PROCEDURE REASON: multiple diagnoses * * * * Physician Interpretation * * * * NM BRAIN TREMOR SPECT/CT CLINICAL HISTORY: Parkinsonian syndrome. TECHNIQUE: Patient medications and allergies were reviewed prior to the exam. Thyroid blockade was administered orally at least 15 minutes prior to radiotracer injection, followed by intravenous injection of I-123 Ioflupane. SPECT/CT images of the brain were acquired approximately 4 hours later. * CT Dose-Length Product (DLP): 446 mGy*cm * CT Dose Reduction Employed: Yes * Injected activity: 5.9 mCi * Radiopharmaceutical: 123-Iodine ioflupane (DaTscan) REFERENCE: https://doi.org/10.1002 /2286-4284()15:3% 3C503::aid-vft0049%3E3. 0.co;2 -v CORRELATION: MRI brain 12/18/2023 RESULT: Caudate uptake: Symmetric * Right caudate: Within normal limits * Left caudate: Within normal limits Putamina uptake: Asymmetric * Right anterior putamen: Within normal limits * Right posterior putamen: Within normal limits * Left anterior putamen: Within normal limits * Left posterior putamen: Abnormally reduced Localization CT: No acute abnormality. Milk Tanker Driver (topogram) images: No significant findings. There are prominent perivascular spaces versus chronic small lacunar infarcts near the posterior left putamen which could account for the slightly asymmetric uptake. IMPRESSION: Normal examination. No clear evidence of abnormal dopamine transporter density within the striatum. General Activities Therapist: CARA Transcribe Date/Time: May 21 2025 1:49P Dictated by : SHAHID MCGREGOR MD This examination was interpreted and the report reviewed and electronically signed by: SHAHID MCGREGOR MD on May 21 2025 3:03PM EST [id number] Normal [facility] CNOVon 04-24-2025 CNOV Office Visit (INTMWS ) ELYSE MALONEY ([id number]) 1935 M Date Time Provider Department 04/24/25 1:00 PM ANG VICKERS INTMWS During your visit today, we recorded the following information about you: Weight 83.7 kg Ang Vickers MD 04/24/2025 7:40 PM Signed Subjective Elyse Maloney is a 89 year old male here with spouse. He was in the ER 04/01/25 for a fall at home. He just got up to go to the kitchen while watching TV. He did not recall specifics, nor symptoms around the fall. In the ER his CT scan of the brain and xray of the hip showed NAD. 2 days ago, he lay down on his right side, and noticed dizziness for 3-5 minutes. He mainly noticed the TV moving back and forth. He had no headache, no vision loss, no spinning sensation or motion sickness. This occurred again yesterday. Review of Systems Constitutional: Negative for fatigue and fever. HENT: Negative for congestion, ear pain, sore throat and trouble swallowing. Eyes: Negative for visual disturbance. Respiratory: Negative for shortness of breath. Cardiovascular: Negative for chest pain and palpitations. Gastrointestinal: Negative for diarrhea, nausea and vomiting. Genitourinary: Negative for dysuria. Neurological: Negative for tremors, syncope, facial asymmetry, speech difficulty, weakness, numbness and headaches. ACTIVE PROBLEM LIST Pure Hypercholesterolemia [...] current facility-administered medications for this visit. Objective Wt 83.7 kg (184 lb 8.4 oz) BMI 26.48 kg/m? 04/24/25 1303 04/24/25 1306 04/24/25 1307 Weight: 83.7 kg (184 lb 8.4 oz) Orthostatic BP: 145/72 137/82 121/69 BP Position: Sitting Standing Supine Orthostatic Pulse: 75 75 76 Physical Exam Constitutional: General: He is not in acute distress. Appearance: He is not ill-appearing. HENT: Head: Atraumatic. Mouth/Throat: Mouth: Mucous membranes are moist. Eyes: Extraocular Movements: Extraocular movements intact. Conjunctiva/sclera: Conjunctivae normal. Pupils: Pupils are equal, round, and reactive to light. Comments: No nystagmus. Cardiovascular: Rate and Rhythm: Normal rate and regular rhythm. Heart sounds: No murmur heard. No gallop. Pulmonary: Breath sounds: Normal breath sounds. Musculoskeletal: Right lower le+ Pitting Edema present. Left lower le+ Pitting Edema present. Neurological: Mental Status: He is alert and oriented to person, place, and time. Cranial Nerves: No cranial nerve deficit, dysarthria or facial asymmetry. Sensory: Sensation is intact. No sensory deficit. Motor: Abnormal muscle tone present. No weakness, tremor or pronator drift. Coordination: Romberg sign positive. Lgzcta-Hgli-Emfeqg Test normal. Rapid alternating movements normal. Gait: Gait abnormal (wide base, shuffling, using a hiking stick) and tandem walk abnormal. ASSESSMENT/PLAN: 1. Dizziness - ICD9: 780.4, ICD10: R42 (primary diagnosis) Transient. If recurrent, consider vestibular PT. If worse, seek medical attention. There is no indication these are transient ischemic attacks. 2. Unsteadiness on feet - ICD9: 781.2, ICD10: R26.81 Question of Parkinsonism. 3. At risk for falling - ICD9: V15.88, ICD10: Z91.81 Fall precautions. 4. Essential hypertension - ICD9: 401.9, ICD10: I10 (more content not included)... Normal [facility] Cardiology Visit Reporton Cardiology Visit Report [facility] [address] [place] [address] OFFICE VISIT Date of Service: 04/02/25 MR#: [id number] Acct: [id number] Name: ELYSE MALONEY Rep #: [id number] : 1935 Provider: JANA marquis Age/Sex: 89/M Location: [facility] Status: Signed HPI HPI History of Present Illness Details: This is a pleasant 89-year-old man who presents for a cardiovascular follow-up [...] he has been following with Neurology from [facility] for balance issues and completed PT. He follows with [facility], Dr. Calixto Blankenship. He denies chest, arm, jaw, or neck [...] level has remained stable. Intake Vital Signs 10/03/24 09:19 04/01/25 22:18 04/02/25 09:33 04/02/25 09:45 Height 5 ft 10 in 5 ft 10 in 5 ft 10 in Weight: 188 lb BMI 26.9 BP 159/80 H 161/79 H Blood Pressure Location Lt brachial Rt brachial Position Sitting Sitting Respiration 16 Pulse 67 67 Pulse Source NIBP NIBP Intake Visit Reasons: 6 M Refueler Required: No Accompanied by: Is patient in pain?: No Allergies No Known Allergies Allergy (Verified 04/02/25 09:38) Medications ???Medication ???Instructions ???Recorded ???Confirmed ???Type finasteride 5 mg tablet 5 mg PO DAILY prostate 09/14/18 History multivitamin 1 ea PO DAILY vitamin 09/14/1802/19 History apixaban 5 mg tablet (Eliquis) 5 mg PO BID #60 tabs 06/15/2002/19 Rx tamsulosin 0.4 mg capsule (Flomax) 0.4 mg PO DAILY 06/05/21 5 History atorvastatin 40 mg tablet 40 mg PO DAILY 03/15/23 04/02/25 H istory lisinopril 40 mg tablet 40 mg PO DAILY 03/15/23 04/02/25 H istory vitamins A,C,A-nqbl-hvalqf 4,296 1 cap PO BID 09/26/23 04/02/25 His tory mcg-226 mg-90 mg capsule (PreserVision AREDS) furosemide 40 mg tablet 40 mg PO Q OTHER DAY #45 tabs 04/2804/02/25 Rx metoprolol succinate 100 mg 100 mg PO DAILY 10/03/24 04/02/25 History tablet,extended release 24 hr Ejection fraction %: 55 Have you fallen in the past year?: Yes (Fell yesterday and was seen in ER on 04/02/25) [facility] Medical History Syncope Longstanding persistent atrial fibrillation Atherosclerotic heart disease of [place] coronary artery without angina pectoris Actinic keratoses [...] cuff History of total left hip replacement (2012) Family History Father Heart disease Social History Smoking Status: Former smoker how long ago did patient quit smokin alcohol intake: current alcohol intake frequency: a few times a week substance use type: does not use caffeine: Yes Type: coffee Number of servings: 1 ROS Const Const: Negative for fatigue or weakness Eyes Eyes: Negative for change in vision ENT ENT: Positive for balance problems (Unsteady, left side weaker with episodes); Negative for dizziness Cardio Chest Pain: No Palpitations: No Edema: Bilateral Resp Respiratory: Negative for SOB with activity, SOB at rest or SOB orthopnea SOB lying down GI GI: Negative nausea or heartburn Musc Musc: Positive for balance problems (Unsteady, left side weaker with episodes) Neuro Neuro: Negative for dizziness, lightheadedness, near syncope, syncope or weakness Endo Endo: Negat (more content not included)... Normal [facility] Brain/Head without Contrasto n 04-01-2025 Brain/Head without Contrast [facility] Imaging Services [address] [place] [address] [id number] Brain/Head without Contrast MR#: [id number] Acct: [id number] Name: ELYSE MALONEY Rep #: [id number] : 1935 M 89 From: Kristofer Robertson MD PCP: Dr. Ang Vickers MD Status: [facility] ER Study: Brain/Head without Contrast Date of Exam: 01/19 Exam# [id number] Ordering Dr: Donald Murry DO PROCEDURE: BRAIN/HEAD WITHOUT CONTRAST 04/01/2025 REASON FOR EXAM: FALL TECHNIQUE: BRAIN/HEAD WITHOUT CONTRAST Coronal and Sagittal reconstruction series were provided. One or more dose reduction techniques were used (e.g., Automated exposure control, adjustment of the mA and/or kV according to patient size, use of iterative reconstruction technique. RADIATION DOSE SUMMARY: CTDlvol: 45 mGy DLP: 864 mGycm COMPARISON: 06/05/2021 FINDINGS: Diffuse atrophy. Arterial calcifications. Mild white matter change. No acute abnormal brain densities. No intracranial hemorrhage. No hydrocephalus or midline shift. Bilateral lens extraction. Left-sided scleral banding. No acute scalp or skull pathology. Mild sinus mucosal thickening. CT/Brain/Head without Contrast IMPRESSION: No acute findings Reading Location: [place] [address] CC: Dr. Ang Vickers MD; Donald Murry DO General Activities Therapist: Signed Normal [facility] Emergency Department Summary on 04-01-2025 Emergency Department Summary [facility] Medical Records Department [address] [place] [address] Emergency Department Summary 04/01/25 MR#: [id number] Acct: [id number] Name: ELYSE MALONEY Rep #: [id number] : 1935 89 From: Donald Murry DO PCP: Dr. Ang Vickers MD Status:DEP ER Location: ED HPI History of Present Illness Chief Complaint: Fall Informant: patient and family Narrative Narrative: Patient is an 89-year-old male with past medical history of hypertension hyperlipidemia and persistent atrial fibrillation on Eliquis. He states he was outside working in the yard today and has had some lower extremity discomfort/soreness from this. 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 He reports that he was watching the baseball game this evening and he got up to walk into the kitchen while carrying a bowl of popcorn. He states that he lost his balance and fell. He reports this happened roughly 1 hour prior to arrival. He states he did not strike his head or have loss of consciousness but family believes he did hit his head. He also reports has been having some left hip pain since the fall. As he is on a blood thinner there was concern for internal trauma and he was brought in for evaluation. 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) Essential (primary) hypertension BPH associated with nocturia Hyperlipidemia TIA (transient ischemic attack) (09/14/18) Home Medications ???Medication ???Instructions ???Recorded ???Last Taken ???Type finasteride 5 mg tablet 5 mg PO DAILY prostate 09/14/18 History multivitamin 1 ea PO DAILY vitamin 09/14/18 History apixaban 5 mg tablet (Eliquis) 5 mg PO BID #60 tabs 06/15/2006/28 Rx tamsulosin 0.4 mg capsule (Flomax) 0.4 mg PO DAILY 06/05/21 Unknown History atorvastatin 40 mg tablet 40 mg PO DAILY 03/15/23 Unknown Hi story lisinopril 40 mg tablet 40 mg PO DAILY 03/15/23 Unknown Hi story vitamins A,C,C-kqid-nkefbs 4,296 1 cap PO BID 09/26/23 Unknown Hist ory mcg-226 mg-90 mg capsule (PreserVision AREDS) furosemide 40 mg tablet 40 mg PO Q OTHER DAY #45 tabs 04/28 Unknown Rx metoprolol succinate 100 mg 100 mg PO DAILY 10/03/24 Unknown H istory tablet,extended release 24 hr Allergy/AdvReac Type Severity Reaction Status Date / Time No Known Allergies Allergy Verified 04/01/25 22:20 Family History Father Heart disease Surgical History History of carpal tunnel release (10/2020) History of cardioversion (07/13/20) History of left heart catheterization (05/25/20) History of total knee arthroplasty History of repair of rotator cuff History of total left hip replacement (2011) Social History Smoking Status: Former smoker how long ago did patient quit smokin alcohol intake: current alcohol intake frequency: a few times a week substance use type: does not use caffeine: Yes Type: coffee Number of servings: 1 ROS ROS ED Constitutional Constitutional ED: Denies chills or fever(s) Eyes Eyes: Denies blurry vision or change in vision ENT ENT ED: Denies sore throat Cardiovascular Cardiovascular: Reports palpitations and other Details: Negative syncope ; Denies chest pain or racing heartbeat Respiratory/Chest Respiratory/Chest: Denies cough or dyspnea Gastrointestinal Gastrointestinal: Denies abdominal pain, diarrhea, nausea or vomiting Musculoskeletal Musculoskeletal: Reports other Details: Positive left hip pain ; Denies back pain or neck pain Integumentary Denies rash Neurologic Neurologic: Denies headache(s) Hematologic/Lymphatic Hematologic/Lymphatic: Reports easy bleeding and easy bruising EXAM Physical Exam Const Vital Signs: 04/01/25 22:18 04/01/25 22:23 04/01/25 22:25 Temperature 98.3 F Temperature Source Oral Pulse Rate 43 L 70 Respiratory Rate 16 18 Respiratory Effort Normal Non-Labored Respiratory Depth Normal Respiratory Pattern Normal Blood Pressure 140/71 H Blood Pressure Mean 94 Pulse Ox 97 96 Oxygen Delivery Method Room Air Room Air Room Air 04/01/25 23:39 Temperature 98.3 F Temperature Source Pulse Rate 84 Respiratory Rate 17 Respirato (more content not included)... Normal [facility] HIP, UNI W/ Pelvis 2-3 Views on 04-01-2025 HIP, UNI W/ Pelvis 2-3 Views [facility] Imaging Services [address] [place] [address] HIP, UNI W/ Pelvis 2-3 Views MR#: [id number] Acct: [id number] Name: ELYSE MALONEY Rep #: [id number] : 1935 M 89 From: Fabrizio Bee MD PCP: Dr. Ang Vickers MD Status: REG ER Study: HIP, UNI W/ Pelvis 2-3 Views Date of Exam: 01/19 Exam# [id number] Ordering Dr: Donald Murry DO PROCEDURE: HIP, UNI W/ PELVIS 2-3 VIEWS 04/01/2025 REASON FOR EXAM: FALL TECHNIQUE: HIP, UNI W/ PELVIS 2-3 VIEWS COMPARISON: None. FINDINGS: No evidence of acute fracture or dislocation. Left hip hemiarthroplasty appears intact without evidence for loosening or failure. Moderate degenerative arthrosis of the right hip joint. Degenerative changes of the lower lumbosacral spine. Atherosclerotic vascular calcifications. RAD/HIP, UNI W/ Pelvis 2-3 Views IMPRESSION: 1. No evidence of acute fracture or dislocation. 2. Left hip arthroplasty with intact hardware. 3. 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 Reading Location: [id number] CC: Dr. Ang Vickers MD; Donald Murry DO General Activities Therapist: Signed [facility] CNOVon 01-09-2025 CNOV Office Visit (INTMWS ) ELYSE MALONEY ([id number]) 1935 M Date Time Provider Department 01/09/25 10:20 AM ANG VICKERS INTMWS During your visit today, we recorded the following information about you: Temperature Pulse Respiration Blood pressure 97.3 degrees 64/minute 12/minute 130/76 Weight 86.1 kg Ang Vickers MD 01/09/2025 10:44 AM Signed This note was created using [employer]. Subjective Patient presents with: Derm Problem Elyse Maloney is a 89 year old male. Recording using [employer] software for draft documentation of the visit was discussed with the patient/authorized authorization representative; all questions welcomed and answered. Patient/authorized authorization representative agreed to proceed Elyse is a [...] signs of infection. - Please apply an gtxq-lmr-ksajwct topical corticosteroid cream to the affected area [...] - atorvastatin (more content not included)... Normal [facility] CNOVon 11-22-2024 CNOV Office Visit (INTMWS ) ELYSE MALONEY ([id number]) 1935 M Date Time Provider Department 11/22/24 2:20 PM ANG VICKERS INTMWS During your visit today, we recorded the following information about you: Temperature Pulse Respiration Blood pressure 96.6 degrees 71/minute 14/minute 124/58 Weight Height 88 kg 1.778 m Ang Vickers MD 11/22/2024 3:31 PM Signed Elyse Maloney is a 88 year old [...] MD as PCP - General Daniela Muir APRN.MOLD HOLDER as Supervisor [place] (Internal Medicine) Bruce Walker MD (Neurology) Agusto Marsh MD (Neurology) Outside specialists seen: Dr. Newton Palmer, cardiology. Dr. Carlos Soto, dermatology. Dr. Dino Liriano, ophthalmology. Dr. Eneida Wellington, Pulmonary and Sleep Medicine. Dr. Guero Christine, Spine Surgery [facility] ([facility] for CPAP supplies. Medical/Family history review Reviewed [...] (Temporal) Resp 14 Ht 177.8 cm (5' 10") Wt 88 kg (194 lb 0.1 oz) [...] PM Signed This note was created using [employer]. Subjective Elyse Maloney is a 88 year old male. He was doing reasonably well at this time. No falls were noted. He was referred to neurology for possible Parkinsonism and gait abnormality. His gait abnormality was felt to be multifactorial. He was seeing a spine surgeon at [facility] for spinal stenosis, and conservative management was [...] Current Ou (more content not included)... Normal [facility] Urinalysis complete panel (U )on 10-09-2024 Bacteria LM.HPF (Urine sed) [#/Area] Negative Normal Negative [facility] Comment on above: Order Comment: Speci men Type: URINE SPECIMENOrdering Facility: [facility] Address: [address] [place] [address] Performed By: #### 2 4356-8 ####[facility] LABCLIA [id number] [place] [address] [place] Bilirubin Ql (U) Negative Normal Negative [facility] Comment on above: Order Comment: Speci men Type: URINE SPECIMENOrdering Facility: [facility] Address: [address] [place] [address] Performed By: #### 2 4356-8 ####[facility] LABCLIA [id number] [place] [address] [place] Clarity (Unsp spec) Clear Normal Clear [facility] Comment on above: Order Comment: Speci men Type: URINE SPECIMENOrdering Facility: [facility] Address: [address] [place] [address] Performed By: #### 2 4356-8 ####[facility] LABCLIA [id number] [place] [address] [place] Color (U) Yellow Normal Yellow [facility] Comment on above: Order Comment: Speci men Type: URINE SPECIMENOrdering Facility: [facility] Address: [address] [place] [address] Performed By: #### 2 4356-8 ####[facility] LABCLIA [id number] [place] [address] [place] Epithelial cells LM.HPF (Urine sed) [#/Area] None Seen Normal [facility] Comment on above: Order Comment: Speci men Type: URINE SPECIMENOrdering Facility: [facility] Address: [address] [place] [address] Performed By: #### 2 4356-8 ####[facility] LABCLIA [id number] [place] [address] [place] Glucose Test strip (U) [Mass/Vol] Negative Normal Negative [facility] Comment on above: Order Comment: Speci men Type: URINE SPECIMENOrdering Facility: [facility] Address: [address] [place] [address] Performed By: #### 2 4356-8 ####[facility] LABCLIA [id number] [place] [address] [place] Hemoglobin Ql (U) Negative Normal Negative [facility] Comment on above: Order Comment: Speci men Type: URINE SPECIMENOrdering Facility: [facility] Address: [address] [place] [address] Performed By: #### 2 4356-8 ####[facility] LABCLIA [id number] [place] [address] [place] Hyaline casts (Urine sed) [#/Area] 0 /[LPF] Normal 0 /LPF [facility] Comment on above: Order Comment: Speci men Type: URINE SPECIMENOrdering Facility: [facility] Address: [address] [place] [address] Performed By: #### 2 4356-8 ####[facility] LABCLIA [id number] [place] [address] [place] Ketones Ql (U) Negative Normal Negative [facility] Comment on above: Order Comment: Speci men Type: URINE SPECIMENOrdering Facility: [facility] Address: [address] [place] [address] Performed By: #### 2 4356-8 ####[facility] LABCLIA [id number] [place] [address] [place] Leukocyte esterase Test strip Ql (U) Negative Normal Negative [facility] Comment on above: Order Comment: Speci men Type: URINE SPECIMENOrdering Facility: [facility] Address: [address] [place] [address] Performed By: #### 2 4356-8 ####[facility] LABCLIA [id number] [place] [address] [place] Nitrite Ql (U) Negative Normal Negative [facility] Comment on above: Order Comment: Speci men Type: URINE SPECIMENOrdering Facility: [facility] [facility] Address: [address] [place] [address] Performed By: #### 2 4356-8 ####[facility] [id number] [place] [address] [place] pH (U) 7.0 [pH] Normal <8.5 [facility] Comment on above: Order Comment: Speci men Type: URINE SPECIMENOrdering Facility: [facility] Address: [address] [place] [address] Performed By: #### 2 4356-8 ####[facility] [id number] [place] [address] [place] Protein (U) [Mass/Vol] 1+ Abnormal Negative [facility] Comment on above: Order Comment: Speci men Type: URINE SPECIMENOrdering Facility: [facility] Address: [address] [place] [address] Performed By: #### 2 4356-8 ####[facility] [id number] [place] [address] [place] RBC LM.HPF (Urine sed) [#/Area] 0-2 /HPF Normal 0-2 /HPF [facility] Comment on above: Order Comment: Speci men Type: URINE SPECIMENOrdering Facility: [facility] Address: [address] [place] [address] Performed By: #### 2 4356-8 ####[facility] [id number] [place] [address] [place] Specific gravity (U) [Rel density] 1.019 Normal 1.005-1.030 [facility] Comment on above: Order Comment: Speci men Type: URINE SPECIMENOrdering Facility: [facility] Address: [address] [place] [address] Performed By: #### 2 4356-8 ####[facility] [id number] [place] [address] [place] Urobilinogen Ql (U) 0.2 EU/dL Normal 0.2-1.0 EU/dL [facility] Comment on above: Order Comment: Speci men Type: URINE SPECIMENOrdering Facility: [facility] Address: [address] [place] [address] Performed By: #### 2 4356-8 ####[facility] [id number] [place] [address] [place] WBC LM.HPF (Urine sed) [#/Area] 0-5 /HPF Normal 0-5 /HPF [facility] Comment on above: Order Comment: Speci men Type: URINE SPECIMENOrdering Facility: [facility] Address: [address] [place] [address] Performed By: #### 2 4356-8 ####[facility] [id number] [place] [address] [place] Cardiology Visit Reporton Cardiology Visit Report [facility] [address] [place] [address]. [address] [place], [place] [address] OFFICE VISIT Date of Service: 10/03/24 MR#: [id number] Acct: [id number] Name: ELYSE MALONEY Rep #: [id number] : 1935 Provider: JANA marquis Age/Sex: 88/M Location: [facility] Status: Signed HPI HPI History of Present [...] he has been following with Neurology from [facility] for balance issues and completed PT. 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 Normal [facility] JONATHON BY IFA WITH REFLEXon Nuclear Ab pattern (S) [Interp] Nuclear homogeneous Normal [facility] Comment on above: Order Comment: Speci men Type: BLOOD SPECIMENOrdering Facility: [facility] Address: [address] [place] [address] Performed By: #### A NAIFR, 94567-1, 80992-1, 47894-2, 71435-1, 17710-7, 81867-1, 83650-3, 72090-7, 29447-2 ####[facility] [id number] [place] [address] [place] Nuclear Ab Ql (S) Positive Abnormal Negative [facility] Comment on above: Order Comment: Speci men Type: BLOOD SPECIMENOrdering Facility: [facility] Address: [address] [place] [address] Result Comment: Anti -nuclear antibody test is used as an aid in diagnosis of systemic autoimmune diseases. Where positive and clinically warranted, follow-up using disease-specific testing is recommended. Low positive titers are not uncommon with advanced age, certain chronic infections, and malignancies among others. Test methodology: Indirect fluorescence immunoassay (IFA) using HEp-2 cells. 1:80 Performed By: #### A NAIFR, 98846-7, 71927-5, 50624-2, 42086-4, 31682-6, 26103-0, 04411-4, 66454-8, 22623-3 ####[facility] [id number] [place] [address] [place] CBC W Auto Differential pane l (Bld)on 09-19-2024 Basophils (Bld) [#/Vol] 0.03 10*3/uL [facility] Basophils/100 WBC (Bld) 0.3 % [facility] Differential cell count method Nom (Bld) Auto [facility] Eosinophils (Bld) [#/Vol] 0.26 10*3/uL [facility] Eosinophils/100 WBC (Bld) 2.8 % [facility] Erythrocyte distribution width (RBC) [Ratio] 14.0 % 11.5 - 15.0 % [facility] Hematocrit (Bld) [Volume fraction] 37.9 % Low 39.0 - 51.0 % [facility] Hemoglobin (Bld) [Mass/Vol] 12.5 g/dL Low 13.0 - 17.0 g/dL [facility] Immature granulocytes (Bld) [#/Vol] 0.07 10*3/uL [facility] Immature granulocytes/100 WBC (Bld) 0.8 % [facility] Interpretation and review of laboratory results Abnormal [facility] Lymphocytes (Bld) [#/Vol] 1.23 10*3/uL [facility] Lymphocytes/100 WBC (Bld) 13.2 % [facility] MCH (RBC) [Entitic mass] 33.0 pg 26.0 - 34.0 pg [facility] MCHC (RBC) [Mass/Vol] 33.0 g/dL 30.5 - 36.0 g/dL [facility] MCV (RBC) [Entitic vol] 100.0 fL 80.0 - 100.0 fL [facility] Monocytes (Bld) [#/Vol] 0.76 10*3/uL [facility] Monocytes/100 WBC (Bld) 8.2 % [facility] Neutrophils (Bld) [#/Vol] 6.96 10*3/uL [facility] Neutrophils/100 WBC (Bld) 74.7 % [facility] Nucleated RBC (Bld) [#/Vol] [facility] Nucleated RBC/100 WBC (Bld) [Ratio] 0.0 % /100 WBC [facility] Platelet mean volume (Bld) [Entitic vol] 10.6 fL 9.0 - 12.7 fL [facility] Platelets (Bld) [#/Vol] 186 10*3/uL [facility] RBC (Bld) [#/Vol] 3.79 10*6/uL Low 4.20 - 6.0 0 m/uL [facility] WBC (Bld) [#/Vol] 9.31 10*3/uL [facility] Basophils (Bld) [#/Vol] 0.03 10*3/uL Normal <0.11 [facility] Comment on above: Order Comment: Speci men Type: BLOOD SPECIMENOrdering Facility: [facility] Address: [address] [place] [address] Performed By: #### 5 7021-8 ####[facility] [id number] [place] [address] [place] Basophils/100 WBC (Bld) 0.3 % Normal [facility] Comment on above: Order Comment: Speci men Type: BLOOD SPECIMENOrdering Facility: [facility] Address: [address] [place] [address] Performed By: #### 5 7021-8 ####[facility] [id number] [place] [address] [place] Differential cell count method Nom (Bld) Auto Normal [facility] Comment on above: Order Comment: Speci men Type: BLOOD SPECIMENOrdering Facility: [facility] Address: [address] [place] [address] Performed By: #### 5 7021-8 ####[facility] [id number] [place] [address] [place] Eosinophils (Bld) [#/Vol] 0.26 10*3/uL Normal <0.46 [facility] Comment on above: Order Comment: Speci men Type: BLOOD SPECIMENOrdering Facility: [facility] Address: [address] [place] [address] Performed By: #### 5 7021-8 ####[facility] [id number] [place] [address] [place] Eosinophils/100 WBC (Bld) 2.8 % Normal [facility] Comment on above: Order Comment: Speci men Type: BLOOD SPECIMENOrdering Facility: [facility] Address: [address] [place] [address] Performed By: #### 5 7021-8 ####[facility] [id number] [place] [address] [place] Erythrocyte distribution width (RBC) [Ratio] 14.0 % Normal 11.5-15.0 [facility] Comment on above: Order Comment: Speci men Type: BLOOD SPECIMENOrdering Facility: [facility] Address: [address] [place] [address] Performed By: #### 5 7021-8 ####[facility] [id number] [place] [address] [place] Hematocrit (Bld) [Volume fraction] 37.9 % Low 39.0-51.0 [facility] Comment on above: Order Comment: Speci men Type: BLOOD SPECIMENOrdering Facility: [facility] Address: [address] [place] [address] Performed By: #### 5 7021-8 ####[facility]IA [id number] [place] [address] [place] Hemoglobin (Bld) [Mass/Vol] 12.5 g/dL Low 13.0-17.0 [facility] Comment on above: Order Comment: Speci men Type: BLOOD SPECIMENOrdering Facility: [facility] Address: [address] [place] [address] Performed By: #### 5 7021-8 ####[facility] [id number] [place] [address] [place] Immature granulocytes (Bld) [#/Vol] 0.07 10*3/uL Normal <0.10 [facility] Comment on above: Order Comment: Speci men Type: BLOOD SPECIMENOrdering Facility: [facility] Address: [address] [place] [address] Performed By: #### 5 7021-8 ####[facility] [id number] [place] [address] [place] Immature granulocytes/100 WBC (Bld) 0.8 % Normal [facility] Comment on above: Order Comment: Speci men Type: BLOOD SPECIMENOrdering Facility: [facility] Address: [address] [place] [address] Performed By: #### 5 7021-8 ####[facility]CL[facility] [id number] [place] [address] [place] Lymphocytes (Bld) [#/Vol] 1.23 10*3/uL Normal 1.00-4.00 [facility] Comment on above: Order Comment: Speci men Type: BLOOD SPECIMENOrdering Facility: [facility] Address: [address] [place] [address] Performed By: #### 5 7021-8 ####[facility] [id number] [place] [address] [place] Lymphocytes/100 WBC (Bld) 13.2 % Normal [facility] Comment on above: Order Comment: Speci men Type: BLOOD SPECIMENOrdering Facility: [facility] Address: [address] [place] [address] Performed By: #### 5 7021-8 ####[facility] [id number] [place] [address] [place] MCH (RBC) [Entitic mass] 33.0 pg Normal 26.0-34.0 [facility] Comment on above: Order Comment: Speci men Type: BLOOD SPECIMENOrdering Facility: [facility] Address: [address] [place] [address] Performed By: #### 5 7021-8 ####[facility]CL[facility] [id number] [place] [address] [place] MCHC (RBC) [Mass/Vol] 33.0 g/dL Normal 30.5-36.0 [facility] Comment on above: Order Comment: Speci men Type: BLOOD SPECIMENOrdering Facility: [facility] Address: [address] [place] [address] Performed By: #### 5 7021-8 ####[facility]CL[facility] [id number] [place] [address] [place] MCV (RBC) [Entitic vol] 100.0 fL Normal 80.0-100.0 [facility] Comment on above: Order Comment: Speci men Type: BLOOD SPECIMENOrdering Facility: [facility] Address: [address] [place] [address] Performed By: #### 5 7021-8 ####[facility]CL[facility] [id number] [place] [address] [place] Monocytes (Bld) [#/Vol] 0.76 10*3/uL Normal <0.87 [facility] Comment on above: Order Comment: Speci men Type: BLOOD SPECIMENOrdering Facility: [facility] Address: [address] [place] [address] Performed By: #### 5 7021-8 ####[facility]CL[facility] [id number] [place] [address] [place] Monocytes/100 WBC (Bld) 8.2 % Normal [facility] Comment on above: Order Comment: Speci men Type: BLOOD SPECIMENOrdering Facility: [facility] Address: [address] [place] [address] Performed By: #### 5 7021-8 ####[facility]CL[facility] [id number] [place] [address] [place] Neutrophils (Bld) [#/Vol] 6.96 10*3/uL Normal 1.45-7.50 [facility] Comment on above: Order Comment: Speci men Type: BLOOD SPECIMENOrdering Facility: [facility] Address: [address] [place] [address] Performed By: #### 5 7021-8 ####[facility]CL[facility] [id number] [place] [address] [place] Neutrophils/100 WBC (Bld) 74.7 % Normal [facility] Comment on above: Order Comment: Speci men Type: BLOOD SPECIMENOrdering Facility: [facility] Address: [address] [place] [address] Performed By: #### 5 7021-8 ####[facility]CL[facility] [id number] [place] [address] [place] Nucleated RBC (Bld) [#/Vol] 10*3/uL Normal <0.01 [facility] Comment on above: Order Comment: Speci men Type: BLOOD SPECIMENOrdering Facility: [facility] Address: [address] [place] [address] Performed By: #### 5 7021-8 ####[facility]IA [id number] [place] [address] [place] Nucleated RBC/100 WBC (Bld) [Ratio] 0.0 /100 WBC Normal [facility] Comment on above: Order Comment: Speci men Type: BLOOD SPECIMENOrdering Facility: [facility] Address: [address] [place] [address] Performed By: #### 5 7021-8 ####[facility] [id number] [place] [address] [place] Platelet mean volume (Bld) [Entitic vol] 10.6 fL Normal 9.0-12.7 [facility] Comment on above: Order Comment: Speci men Type: BLOOD SPECIMENOrdering Facility: [facility] Address: [address] [place] [address] Performed By: #### 5 7021-8 ####[facility] [id number] [place] [address] [place] Platelets (Bld) [#/Vol] 186 10*3/uL Normal 150-400 [facility] Comment on above: Order Comment: Speci men Type: BLOOD SPECIMENOrdering Facility: [facility] Address: [address] [place] [address] Performed By: #### 5 7021-8 ####[facility] [id number] [place] [address] [place] RBC (Bld) [#/Vol] 3.79 10*6/uL Low 4.20-6.00 [facility] Comment on above: Order Comment: Speci men Type: BLOOD SPECIMENOrdering Facility: [facility] Address: [address] [place] [address] Performed By: #### 5 7021-8 ####[facility] [id number] [place] [address] [place] WBC (Bld) [#/Vol] 9.31 10*3/uL Normal 3.70-11.00 [facility] Comment on above: Order Comment: Speci men Type: BLOOD SPECIMENOrdering Facility: [facility] Address: [address] [place] [address] Performed By: #### 5 7021-8 ####[facility] [id number] [address] [place] CNOVon 09-19-2024 CNOV Office Visit (NREUS2 ) ELYSE MALONEY ([id number]) 1935 M Date Time Provider Department 09/19/24 8:30 AM BRUCE WALKER NREUS2 During your visit today, we recorded the following information about you: Weight Height 83.9 kg 1.778 m Bruce Walker MD 04/25/2025 10:06 AM Addendum [facility] - Follow Up Visit [facility] Neurologist: Bruce Walker MD [facility] JOANNA: No referring provider defined for this encounter. Ang Vickers MD [address] [facility] [id number] Dear : I had the pleasure of [...] PA Marsha Arias on 05/22/[address] Marsh as well. Patient is 88 yo with [...] no constipation. He was in PT at [facility] Denies neuropathy sensations in his feet. Denies [...] Row Office Visit from 09/19/2024 in [facility]rological [facility] Office Visit from 06/28/2024 in [facility]rology [facility] [...] mg Take 1 tablet by mouth once da (more content not included)... Normal [facility] COPPER BLOODon 09-19-2024 Copper [Mass/Vol] 128 ug/dL Normal 70-140 [facility] Comment on above: Order Comment: Speci men Type: BLOOD SPECIMENOrdering Facility: [facility] Address: [address] [place] [address] Result Comment: This test was developed, and its performance characteristics determined by the [facility] Department of Pathology and Laboratory Medicine. It has not been cleared or approved by the FDA. The [facility] Department of Pathology and Laboratory Medicine is regulated under CLIA as qualified to perform high-complexity testing. This test is used for clinical purposes. It should not be regarded as investigational or for research. Performed By: #### Vandana SMITH, 5763-8 ####[facility] LABIA [id number] [place] [address] [place] Centromere Ab IF Ql (S)on Centromere Ab Qn (S) <0.2 Normal <1.0 [facility] Comment on above: Order Comment: Luna herndon Type: BLOOD SPECIMENOrdering Facility: [facility] Address: [address] [place] [address] Result Comment: Anti -centromere antibody is used as in aid in diagnosis of systemic sclerosis. Clinical correlation is required. Test Methodology: Multiplex flow immunoassay. Performed By: #### A NAIFR, 45544-5, 90352-1, 71297-6, 71772-5, 05908-8, 15317-3, 79811-6, 42630-1, 53211-7 ####[facility] [id number] [address] OF [facility] AB QUAL Negative Normal Negative [facility] Comment on above: Order Comment: Luna [facility] Type: BLOOD SPECIMENOrdering Facility: [facility] Address: [address] [place] [address] Performed By: #### A NAIFR, 78252-2, 62079-9, 06504-8, 55770-9, 31313-0, 68871-1, 11436-9, 78608-7, 32690-0 ####[facility] [id number] [place] [address] [place] Chromatin Ab Qnon 09-19-2024 CHROMATIN AB QUAL Negative Normal Negative [facility] Comment on above: Order Comment: Speci men Type: BLOOD SPECIMENOrdering Facility: [facility] Address: [address] [place] [address] Performed By: #### A NAIFR, 17770-4, 29858-5, 43132-7, 10636-5, 42711-4, 06218-2, 32294-7, 20402-3, 52264-1 ####[facility] [id number] [place] [address] [place] Chromatin Ab SerPl-aCncon Chromatin Ab Qn <0.2 Normal <1.0 [facility] Comment on above: Order Comment: Speci men Type: BLOOD SPECIMENOrdering Facility: [facility] Address: [address] [place] [address] Result Comment: Test Methodology: Multiplex flow immunoassay. Performed By: #### A NAIFR, 25789-8, 12964-0, 05358-5, 73557-0, 76412-8, 19775-8, 03688-8, 90219-5, 07230-6 ####[facility] [id number] [place] [address] [place] Comprehensive metabolic 2000 panelon 09-19-2024 Albumin [Mass/Vol] 4.2 g/dL Normal 3.9-4.9 [facility] Comment on above: Order Comment: Speci men Type: BLOOD SPECIMENOrdering Facility: [facility] Address: [address] [place] [address] Performed By: #### 3 016-3, 20185-3, 2132-9, 2284-8 ####[facility] [id number] [place] [address] [place] ALP [Catalytic activity/Vol] 114 U/L High 38-113 [facility] Comment on above: Order Comment: Speci men Type: BLOOD SPECIMENOrdering Facility: [facility] Address: [address] [place] [address] Performed By: #### 3 016-3, 92393-7, 2132-04, 2284-03 ####[facility] [id number] [place] [address] [place] ALT [Catalytic activity/Vol] 20 U/L Normal 10-54 [facility] Comment on above: Order Comment: Speci men Type: BLOOD SPECIMENOrdering Facility: [facility] Address: [address] [place] [address] Performed By: #### 3 016-3, 73206-4, 2132-04, 2284-03 ####[facility] [id number] [place] [address] [place] Anion gap [Moles/Vol] 8 mmol/L Normal 8-15 [facility] Comment on above: Order Comment: Speci men Type: BLOOD SPECIMENOrdering Facility: [facility] Address: [address] [place] [address] Performed By: #### 3 016-3, 19674-2, 2132-04, 2284-03 ####[facility] [id number] [place] [address] [place] AST [Catalytic activity/Vol] 18 U/L Normal 14-40 [facility] Comment on above: Order Comment: Speci men Type: BLOOD SPECIMENOrdering Facility: [facility] Address: [address] [place] [address] Performed By: #### 3 016-3, 26947-3, 2132-04, 2284-03 ####[facility] [id number] [place] [address] [place] Bilirubin [Mass/Vol] 0.9 mg/dL Normal 0.2-1.3 [facility] Comment on above: Order Comment: Speci men Type: BLOOD SPECIMENOrdering Facility: [facility] Address: [address] [place], [place] [address] Performed By: #### 3 016-3, 31574-1, 2132-04, 2284-03 ####[facility] [id number] [address] [address] [place] Calcium [Mass/Vol] 10.4 mg/dL High 8.5-10.2 [facility] Comment on above: Order Comment: Speci men Type: BLOOD SPECIMENOrdering Facility: [facility] Address: [address] [place] [address] Performed By: #### 3 016-3, 33584-8, 2132-04, 2284-03 ####[facility] [id number] [place] [address] [place] Chloride [Moles/Vol] 103 mmol/L Normal 98-107 [facility] Comment on above: Order Comment: Speci men Type: BLOOD SPECIMENOrdering Facility: [facility] Address: [address] [place] [address] Performed By: #### 3 016-3, 67517-6, 2132-04, 2284-03 ####[facility] [id number] [place] [address] [place] CO2 [Moles/Vol] 30 mmol/L Normal 22-30 [facility] Comment on above: Order Comment: Speci men Type: BLOOD SPECIMENOrdering Facility: [facility] Address: [address] [place] [address] Performed By: #### 3 016-3, 64922-5, 2132-04, 2284-03 ####[facility] [id number] [place] [address] [place] Creatinine [Mass/Vol] 0.87 mg/dL Normal 0.73-1.22 [facility] Comment on above: Order Comment: Speci men Type: BLOOD SPECIMENOrdering Facility: [facility] Address: [address] [place] [address] Performed By: #### 3 016-3, 00620-1, 2132-04, 2284-03 ####[facility] [id number] [place] [address] [place] Creatinine and Glomerular filtration rate.predicted panel (S/P/Bld) 84 mL/min/1.73m??? Normal >=60 [facility] Comment on above: Order Comment: Luna herndon Type: BLOOD SPECIMENOrdering Facility: [facility] Address: [address] [place] [address] Result Comment: Brianda mated Glomerular Filtration Rate [...] accurately reflect actual GFR. Performed By: #### 3 016-3, 22635-8, 2132-04, 2284-03 ####[facility] [id number] [place] [id number] [place] Glucose [Mass/Vol] 100 mg/dL High 74-99 [facility] Comment on above: Order Comment: Luna herndon Type: BLOOD SPECIMENOrdering Facility: [facility] Address: [address] [place] [address] Result Comment: The [place] Diabetes Association (ADA) provides guidance for cutoff [...] Standards of Medical Care in Diabetes 2016, [place] Diabetes Association. Diabetes Care. 2016.39(Suppl 1). Performed By: #### 3 016-3, 24828-9, 2132-04, 2284-03 ####[facility] [id number] [address] [address] [place] Potassium [Moles/Vol] 4.4 mmol/L Normal 3.7-5.1 [facility] Comment on above: Order Comment: Speci men Type: BLOOD SPECIMENOrdering Facility: [facility] Address: [address] [place] [address] Performed By: #### 3 016-3, 19223-1, 2132-04, 2284-03 ####[facility] [id number] [place] [address] [place] Protein [Mass/Vol] 6.6 g/dL Normal 6.3-8.0 [facility] Comment on above: Order Comment: Speci men Type: BLOOD SPECIMENOrdering Facility: [facility] Address: [address] [place] [address] Performed By: #### 3 016-3, 01262-3, 2132-04, 2284-03 ####[facility] [id number] [place] [address] [place] Sodium [Moles/Vol] 141 mmol/L Normal 136-144 [facility] Comment on above: Order Comment: Speci men Type: BLOOD SPECIMENOrdering Facility: [facility] Address: [address] [place], [place] [address] Performed By: #### 3 016-3, 92419-7, 2132-04, 2284-03 ####[facility] [id number] [place] [id number] [place] Urea nitrogen [Mass/Vol] 22 mg/dL Normal 9-24 [facility] Comment on above: Order Comment: Speci men Type: BLOOD SPECIMENOrdering Facility: [facility] Address: [address] [place] [address] Performed By: #### 3 016-3, 19484-7, 2132-9, 2284-8 ####[facility] [id number] [place] [address] [place] DNA double strand Ab IA Qn ( S)on 09-19-2024 DNA ANTIBODY 15 IU/mL Normal <=200 [facility] Comment on above: Order Comment: Speci men Type: BLOOD SPECIMENOrdering Facility: [facility] Address: [address] [place] [address] Result Comment: Nega tive: <200 IU/mL Equivocal: 201-300 IU/mL Moderate Positive: 301-800 IU/mL Strong Positive: >801 IU/mL Performed By: #### A NAIFR, 67407-3, 26004-1, 27947-0, 34861-7, 71123-9, 83008-4, 27599-4, 83510-5, 90910-1 ####[facility] [id number] [place] [address] [place] DNA ANTIBODY QUALITATIVE INTERPRETATION Negative Normal Negative [facility] Comment on above: Order Comment: Speci men Type: BLOOD SPECIMENOrdering Facility: [facility] Address: [address] [place] [address] Performed By: #### A NAIFR, 06234-9, 96321-0, 23674-1, 06117-8, 59799-1, 16667-7, 81717-3, 37657-4, 39624-2 ####[facility] [id number] [place] [address] [place] ALEXANDER Jo1 Ab Ser-aCncon 2024 Amanda-1 extractable nuclear Ab Qn (S) <0.2 Normal <1.0 [facility] Comment on above: Order Comment: Speci men Type: BLOOD SPECIMENOrdering Facility: [facility] Address: [address] [place] [address] Performed By: #### A NAIFR, 83777-7, 25819-0, 77686-6, 19727-4, 51129-2, 84973-9, 73886-6, 00626-0, 39030-7 ####[facility] [id number] [place] [address] [place] ALEXANDER BILLING AND ACCOUNTING STAFF ASSISTANT Ab Ser-aCncon 2024 Ribonucleoprotein extractable nuclear Ab Qn (S) <0.2 Normal <1.0 [facility] Comment on above: Order Comment: Speci men Type: BLOOD SPECIMENOrdering Facility: [facility] Address: [address] [place] [address] Performed By: #### A NAIFR, 73095-9, 78395-5, 20779-4, 28344-9, 09317-5, 87373-6, 79774-7, 74048-9, 90096-1 ####[facility] [id number] [place] [address] [place] ALEXANDER SM IgG Ser-aCncon 2024 Elder extractable nuclear IgG Qn (S) <0.2 Normal <1.0 [facility] Comment on above: Order Comment: Speci men Type: BLOOD SPECIMENOrdering Facility: [facility] Address: [address] [place] [address] Performed By: #### A NAIFR, 24827-5, 14088-5, 65974-0, 94137-8, 89806-2, 40492-3, 27712-5, 44538-5, 08543-8 ####[facility] [id number] [place] [address] [place] ALEXANDER SS-A Ab Ser-aCncon 09-19 Sjogrens syndrome-A extractable nuclear Ab Qn (S) <0.2 Normal <1.0 [facility] Comment on above: Order Comment: Speci men Type: BLOOD SPECIMENOrdering Facility: [facility] Address: [address] [place] [address] Result Comment: Test Methodology: Multiplex flow immunoassay. Performed By: #### A NAIFR, 93927-1, 49512-7, 21397-5, 35718-1, 50779-4, 02348-4, 60596-5, 58419-6, 74268-4 ####[facility] [id number] [place] [address] [place] ALEXANDER SS-B Ab Ser-aCncon 09-19 Sjogrens syndrome-B extractable nuclear Ab Qn (S) <0.2 Normal <1.0 [facility] Comment on above: Order Comment: Speci men Type: BLOOD SPECIMENOrdering Facility: [facility] Address: [address] [place] [address] Result Comment: Anti -SSB (anti-La) antibody is used as an aid in diagnosis of a variety of systemic autoimmune diseases, especially for Sjogren's syndrome and systemic lupus erythematosus. Clinical correlation is required. Test Methodology: Multiplex flow immunoassay. Performed By: #### A NAIFR, 71952-7, 71900-6, 76331-1, 18214-6, 22692-7, 35637-2, 02853-5, 87120-0, 63685-5 ####[facility] [id number] [place] [address] [place] Folate SerPl-mCncon 09-19-19 25 Folate [Mass/Vol] ng/mL Normal >4.7 [facility] Comment on above: Order Comment: Speci men Type: BLOOD SPECIMENOrdering Facility: [facility] Address: [address] [place] [address] Result Comment: A re sult of > 20 ng/mL is not necessarily indicative of a pathologic or treatable condition: it reflects a limitation of the test methodology. Assay reference range: 4.8 to 24.2 ng/mL. Suitable for detection of folate deficiency. Reference: Folate III (Folate III) [package insert V 1.0 [place]]. [facility], [place], [place]: June 2015. Performed By: #### 3 016-3, 42985-5, 2132-9, 2284-8 ####[facility]CL[facility] [id number] [address] [address] [place] HOMOCYSTEINEon 09-19-2024 Homocysteine [Moles/Vol] 10.4 umol/L NINF - 15.1 umol/L [facility] HbA1c (Bld)on 09-19-2024 Average glucose Estimated from glycated hemoglobin (Bld) [Mass/Vol] 120 mg/dL [facility] Comment on above: eAG: (Estimated aver age glucose) is a calculated value from HgbA1c and is authorization representative of the average blood glucose level in the last 2-3 month period. HbA1c (Bld) [Mass fraction] 5.8 % High 4.3 - 5.6 % [facility] Comment on above: [place] Diabetes As sociation guidelines indicate that patients with HgbA1c in the range 5.7-6.4% are at increased risk for development of diabetes, and intervention by lifestyle modification may be beneficial. HgbA1c greater or equal to 6.5% is considered diagnostic of diabetes. Interpretation and review of laboratory results Abnormal [facility] Average glucose Estimated from glycated hemoglobin (Bld) [Mass/Vol] 120 mg/dL Normal [facility] Comment on above: Order Comment: Luna herndon Type: BLOOD SPECIMENOrdering Facility: [facility] Address: [address] [place] [address] Result Comment: eAG: (Estimated average glucose) is a calculated value from HgbA1c and is authorization representative of the average blood glucose level in the last 2-3 month period. Performed By: #### 5 5454-3 ####[facility]CL[facility] [id number] [address] [address] [place] HbA1c (Bld) [Mass fraction] 5.8 % High 4.3-5.6 [facility] Comment on above: Order Comment: Luna herndon Type: BLOOD SPECIMENOrdering Facility: [facility] Address: [address] [place] [address] Result Comment: [place] Diabetes Association guidelines indicate that patients with HgbA1c in the range 5.7-6.4% are at increased risk for development of diabetes, and intervention by lifestyle modification may be beneficial. HgbA1c greater or equal to 6.5% is considered diagnostic of diabetes. Performed By: #### 5 5454-3 ####[facility]CL[facility] [id number] [place] [address] [place] Hcys SerPl-sCncon 09-19-2024 Homocysteine [Moles/Vol] 10.4 umol/L Normal <15.1 [facility] Comment on above: Order Comment: Luna herndon Type: BLOOD SPECIMENOrdering Facility: [facility] Address: [address] [place] [address] Performed By: #### 1 3965-9 ####[facility] [id number] [place] [address] [place] Homocysteine [Moles/Vol]on 0 09-19-2024 Interpretation and review of laboratory results Normal [facility] Amanda-1 extractable nuclear Ab Qn (S)on 09-19-2024 AMANDA 1 ANTIBODY QUAL Negative Normal Negative [facility] Comment on above: Order Comment: Luna herndon Type: BLOOD SPECIMENOrdering Facility: [facility] Address: [address] [place] [address] Result Comment: Anti -AMANDA-1 antibody is used as an aid in diagnosis of polymyositis and dermatomyositis especially with pulmonary involvement. A negative result cannot rule out polymyositis or dermatomyositis. Clinical correlation is required. Test Methodology: Multiplex flow immunoassay. Performed By: #### A NAIFR, 51666-9, 16018-7, 46982-6, 59164-4, 47373-2, 40053-7, 67347-0, 48393-3, 00477-3 ####[facility] [id number] [place] [address] [place] Prot Ur-mCncon 09-19-2024 Protein (U) [Mass/Vol] 128 mg/dL High 0-20 [facility] Comment on above: Order Comment: Speci men Type: URINE SPECIMENOrdering Facility: [facility] Address: [address] [place] [address] Performed By: #### 2 888-6 ####[facility] [id number] [place] [address] [place] Ribonucleoprotein extractabl e nuclear Ab Qn (S)on 09-19-2024 ANTI-BILLING AND ACCOUNTING STAFF ASSISTANT QUAL Negative Normal Negative [facility] Comment on above: Order Comment: Speci men Type: BLOOD SPECIMENOrdering Facility: [facility] Address: [address] [place] [address] Performed By: #### A KARENR, 54333-8, 45665-8, 38651-3, 66798-6, 96518-5, 05415-5, 58521-0, 37390-6, 97118-9 ####[facility] [id number] [place] [address] [place] RIBOSOMAL BILLING AND ACCOUNTING STAFF ASSISTANT QUAL Negative Normal Negative [facility] Comment on above: Order Comment: Speci men Type: BLOOD SPECIMENOrdering Facility: [facility] Address: [address] [place] [address] Result Comment: Anti -Ribosomal RNA (Ribosomal P) antibody is used as an aid in diagnosis of systemic autoimmune diseases especially systemic lupus erythematosus and mixed connective tissue disease. Cross-reactivity with Anti-elder antibody is not uncommon. Clinical correlation is required. Test Methodology: Multiplex flow immunoassay. Performed By: #### A NAIFR, 77488-4, 17827-1, 49676-7, 05264-9, 50739-0, 21016-7, 65163-0, 72893-5, 54420-6 ####[facility] [id number] [place] [address] [place] SCL-70 extractable nuclear I gG IA Qn (S)on 09-19-2024 SCLERODERMA AB QUAL Negative Normal Negative [facility] Comment on above: Order Comment: Speci men Type: BLOOD SPECIMENOrdering Facility: [facility] Address: [address] [place] [address] Performed By: #### A NAIFR, 92473-8, 19417-4, 27374-7, 23328-5, 83900-6, 03083-6, 35792-7, 65797-6, 48034-8 ####[facility] [id number] [place] [address] [place] SCLERODERMA IGG AB <0.2 Normal <1.0 [facility] Comment on above: Order Comment: Speci men Type: BLOOD SPECIMENOrdering Facility: [facility] Address: [address] [place] [address] Result Comment: Scl- 70/Scleroderma antibody test is used as an aid in diagnosis of systemic sclerosis especially the diffuse cutaneous form. A negative result cannot rule out systemic sclerosis. The final interpretation should consider clinical picture and other test results such as anti-centromere antibody. Test Methodology: Multiplex flow immunoassay. Performed By: #### A NAIFR, 07549-4, 72220-9, 14725-5, 45749-0, 29417-2, 86006-4, 11523-4, 73481-0, 03918-5 ####[facility] [id number] [place] [address] [place] Sjogrens syndrome-A extracta ble nuclear Ab Qn (S)on 09-19-2024 SSA ANTIBODY QUAL Negative Normal Negative [facility] Comment on above: Order Comment: Speci men Type: BLOOD SPECIMENOrdering Facility: [facility] Address: [address] [place] [address] Performed By: #### A NAIFR, 09441-4, 33507-5, 94817-5, 51388-2, 05637-9, 20928-9, 43881-3, 98256-2, 84969-6 ####[facility] [id number] [place] [address] [place] Sjogrens syndrome-B extracta ble nuclear Ab Qn (S)on 09-19-2024 SSB ANTIBODY QUAL Negative Normal Negative [facility] Comment on above: Order Comment: Speci men Type: BLOOD SPECIMENOrdering Facility: [facility] Address: [address] [place] [address] Performed By: #### A NAIFR, 76502-8, 49325-0, 16614-2, 04556-3, 76034-2, 08808-4, 46896-7, 54130-6, 90912-9 ####[facility] [id number] [place] [address] [place] Elder extractable nuclear Ig G Qn (S)on 09-19-2024 SM ANTIBODY QUAL Negative Normal Negative [facility] Comment on above: Order Comment: Luna herndon Type: BLOOD SPECIMENOrdering Facility: [facility] Address: [address] [place] [address] Result Comment: Anti -Sm (Elder) antibody is used as an aid in diagnosis of systemic lupus erythematosus and its presence is associated with renal disease. A negative result cannot rule out systemic lupus erythematosus. Clinical correlation is required. Test Methodology: Multiplex flow immunoassay. Performed By: #### A NAIFR, 65248-8, 41284-6, 93295-9, 16569-1, 60168-5, 78222-1, 52306-6, 84500-2, 97392-9 ####[facility] [id number] [place] [address] [place] TSH SerPl-aCncon 09-19-2024 TSH Qn 1.320 m[IU]/L Normal 0.270-4.200 [facility] Comment on above: Order Comment: Mervati katrina Type: BLOOD SPECIMENOrdering Facility: [facility] Address: [address] [place] [address] Performed By: #### 3 016-3, 59891-9, 2132-9, 2284-8 ####[facility] [id number] [address] [address] [id number] [address] [place] URINE PROTEIN ELECTROPHORESI S RANDOM (P)on 09-19-2024 Albumin Elph (U) [Mass fraction] 70.89 % Normal [facility] Comment on above: Order Comment: Speci men Type: URINE SPECIMENOrdering Facility: [facility] Address: [address] [place] [address] Performed By: #### L [id number] ####[facility] [id number] [place] [address] [place] Alpha 1 globulin Elph (U) [Mass fraction] 5.67 % Normal [facility] Comment on above: Order Comment: Speci men Type: URINE SPECIMENOrdering Facility: [facility] Address: [address] [place] [address] Performed By: #### L [id number] ####[facility] [id number] [address] STATES OF [place] Alpha 2 globulin Elph (U) [Mass fraction] 5.73 % Normal [facility] Comment on above: Order Comment: Speci men Type: URINE SPECIMENOrdering Facility: [facility] Address: [address] [place] [address] Performed By: #### L [id number] ####[facility] [id number] [place] [address] [place] Beta globulin Elph (U) [Mass fraction] 10.25 % Normal [facility] Comment on above: Order Comment: Speci men Type: URINE SPECIMENOrdering Facility: [facility] Address: [address] [place] [address] Performed By: #### L [id number] ####[facility] [id number] [place] [address] [place] Gamma globulin Elph (U) [Mass fraction] 7.46 % Normal [facility] Comment on above: Order Comment: Speci men Type: URINE SPECIMENOrdering Facility: [facility] Address: [address] [place] [address] Performed By: #### L [id number] ####[facility] [id number] [place] [address] [place] Protein Fractions Elph Jerry (U) [Interp] No definitive M protein is identified on protein electrophoresis. Normal No definitive M protein is identified on protein electrophore sis. [facility] Comment on above: Order Comment: Speci men Type: URINE SPECIMENOrdering Facility: [facility] Address: [address] [place] [address] Performed By: #### L [id number] ####[facility] [id number] [address] OF BILL STAFF REVIEW (URINE ELECTRO) Reviewed by Pamela Abbott M.D., Ph.D Normal [facility] Comment on above: Order Comment: Speci men Type: URINE SPECIMENOrdering Facility: [facility] Address: [address] [place] [address] Performed By: #### L [id number] ####[facility] [id number] [place] [address] [place] VITAMIN B6/PYRIDOXINon 09-19 VITAMIN B6 46.4 nmol/L Normal 20.0-125.0 [facility] Comment on above: Order Comment: Speci men Type: BLOOD SPECIMENOrdering Facility: [facility] Address: [address] [place] [address] Result Comment: INTE RPRETIVE INFORMATION: Vitamin B6 (Pyridoxal 5-Phosphate) Pyridoxal 5'-phosphate measured in a specimen collected following an 8-hour or overnight fast accurately indicates vitamin B6 nutritional status. Non-fasting specimen concentration reflects recent vitamin intake. This test was developed and its performance characteristics determined by [employer] [facility] It has not been cleared or approved by the [place] Food and Drug Administration. This test was performed in a CLIA certified laboratory and is intended for clinical purposes. Performed By: [employer] [facility]) [address] [place] [address] Rehabilitation Clerk: Marv Engel MD, PhD CLIA Number: [id number] Performed By: #### V ITB6 ####[facility] [id number] [place] [address] Vit B12 SerPl-mCncon 025 Cobalamin (Vitamin B12) [Mass/Vol] 882 pg/mL Normal 232-1245 [facility] Comment on above: Order Comment: Speci men Type: BLOOD SPECIMENOrdering Facility: [facility] Address: [address] [place] [address] Performed By: #### 3 016-3, 23259-1, 2132-9, 2284-8 ####[facility] [id number] [place] [address] [place] Zinc SerPl-mCncon 09-19-2024 Zinc [Mass/Vol] 68 ug/dL Normal 60-120 [facility] Comment on above: Order Comment: Speci katrina Type: BLOOD SPECIMENOrdering Facility: [facility] Address: [address] [place] [address] Result Comment: This test was developed, and its performance characteristics determined by the [facility] Department of Pathology and Laboratory Medicine. It has not been cleared or approved by the FDA. The [facility] Department of Pathology and Laboratory Medicine is regulated under CLIA as qualified to perform high-complexity testing. This test is used for clinical purposes. It should not be regarded as investigational or for research. Performed By: #### C SARAH, 5763-8 ####[facility] [id number] [place] [address] [place] CNPTamiko 08-01-2024 CNPN Telephone (LESLIE) ELYSE MALONEY ([id number]) 1935 M Date Time Provider Department 08/01/24 NEUROLOGY PROVIDER LOVELY During your visit today, we recorded the following information about you: Erika Maria 08/01/2024 12:15 PM Signed Referral source: Guero Christine MD ([facility]) Reason for visit: gait issues, opinion on Parkinson's disease External records: Sent with referral Triage: Not required Financial clearance: Not required to schedule Patient already completed a recent movement disorders consult with Dr. Agusto Marsh. Allergies As of Date: 08/01/2024 (No Active Allergies) Date Reviewed: 06/28/2024 Reviewed by: Osiris Hyde MA - Fully Assessed Reason for Visit: Received Outside Medical Records [3576] Cmt: External referral to [facility] Prescriptions as of 08/01/2024 - furosemide (LASIX) [...] Encounter Status:Closed by ERIKA MARIA on 08/01/[address] [facility] Joanne 07-08-2024 CNPN Telephone (NEMNICKO) ELYSE MALONEY ([id number]) 1935 M Date Time Provider Department 07/08/24 MARSHA ARIAS During your visit today, we recorded the following information about you: Raheem Oliver LPN 07/08/2024 4:30 PM Signed calling to request a disk for pt's MRI done on 01-24-24. Pt has apt with Dr. Guero Christine Orthopedic surgeon on 07-10-24 at [facility]. Please advise when ready for bean picker. 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, [address] CA,Total 10.1 mg/dL Normal 8.5-10.1 [facility] Comment on above: Performed By: #### L 500.2500 #### [facility] [address] [place], [address] Chloride [Moles/Vol] 106 mmol/L Normal 98-[address] [facility] Comment on above: Performed By: #### L 500.2500 #### [facility] [address] [place], [address] CO2 [Moles/Vol] 28.0 mmol/L Normal 21.0-32.0 [facility] Comment on above: Performed By: #### L 500.2500 #### [facility] [address] [place], [address] Creatinine [Mass/Vol] 1.01 mg/dL Normal 0.70-1.30 [facility] Comment on above: Result Comment: The validity of the calculated GFR GFRAA in patients over 70 years has not been determined. Clinical correlation is essential. Performed By: #### L 500.2500 #### [facility] [address] [place], [address] EST GFR - AA 90 mL/min Normal >60 [facility] Comment on above: Result Comment: Afri can [place] GFR Calc Performed By: #### L 500.2500 #### [facility] [address] [place], [address] GAP 5 Normal 5-15 [facility] Comment on above: Performed By: #### L 500.2500 #### [facility] [address] [place], [address] GFR/1.73 sq M.predicted among non-blacks MDRD (S/P/Bld) [Vol rate/Area] 74 mL/min/{1.73_m2} Normal >60 [facility] Comment on above: Result Comment: Non- GFR Calc Performed By: #### L 500.2500 #### [facility] [address] [place], [address] Glucose [Mass/Vol] 103 mg/dL Normal 74-106 [facility] Comment on above: Result Comment: Fast ing Glucose result from 100 to 125 mg/dL suggests IMPAIRED HOMEOSTASIS per A.D.A. criteria. Performed By: #### L 500.2500 #### [facility] [address] [place], [address] Potassium [Moles/Vol] 4.7 mmol/L Normal 3.5-5.1 [facility] Comment on above: Performed By: #### L [id number] #### [facility] [address] [place], [address] Sodium [Moles/Vol] 139 mmol/L Normal 136-145 [facility] Comment on above: Performed By: #### L [id number] #### [facility] [address] [place], [address] Urea nitrogen [Mass/Vol] 23 mg/dL High 7-18 [facility] Comment on above: Performed By: #### L [id number] #### [facility] [address] [place], [address] MR Cervical spine WO contras ton 01-24-2024 * * *Final Report* * * DATE OF EXAM: Jan 24 2024 2:17PM WRM 0297 - MRI CERVICAL SPINE WO IVCON [...] normal in appearance. DIVISION OF RADIOLOGY Provider, [facility] - 01/24/2024 * * *Final Report* * * DATE OF EXAM: Jan 24 2024 2:17PM GALLO Yang7 - MRI CERVICAL SPINE WO IVCON / [...] and assume there are 5 lumbar-type vertebrae. General Activities Therapist: CARA Transcribe Date/Time: Jan 24 2024 2:21P (more content not included)... [facility] MR Lumbar spine WO contrasto n 01-24-2024 * * *Final Report* * * DATE OF EXAM: Jan 24 2024 2:17PM GALLO 0303 - MRI LUMBAR SPINE WO IVCON [...] normal in appearance. DIVISION OF RADIOLOGY Provider, [facility] - 01/24/2024 * * *Final Report* * * DATE OF EXAM: Jan 24 2024 2:17PM [facility] 0303 - MRI LUMBAR SPINE WO IVCON [...] and assume there are 5 lumbar-type vertebrae. General Activities Therapist: [facility] Transcribe Date/Time: Jan 24 2024 2:21P (more content not included)... [facility] No Panel Informationon 01-23 IMPRESSION: Moderate cervical spondylosis, as detailed. Multilevel cord approximation/abutment without intramedullary signal abnormality. Lumbar spondylosis superimposed on developmentally short pedicles, as detailed. Cervical Anatomic Variant: None. Assume 7 cervical vertebrae with counting from the craniocervical junction. Anatomic Lumbar Variant: None. L4-5 is considered the level of the iliac crest and assume there are 5 lumbar-type vertebrae. General Activities Therapist: CARA Transcribe Date/Time: Jan 24 2024 2:21P Dictated by : BANDAR HELM MD This examination was interpreted and the report reviewed and electronically signed by: BANDAR HELM MD on Jan 24 2024 2:27PM [facility] DIVISION OF RADIOLOGY Radiology Study observation (narrative) [facility] No Panel InformationOrdered By: Ccf Provider on 01-24-2024 [facility] EMG(NEURO/NI)on 01-19-2024 Results can be seen in attached scanned documents. If you are a patient reviewing this test result, call the doctor who ordered the test with any questions. [facility] MR Brain WO contraston 12-17 IMPRESSION: No acute intracranial abnormality. 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 General Activities Therapist: CARA Transcribe Date/Time: Dec 18 2023 11:42A Dictated by : CLAIRE WILKINSON MD This examination was interpreted and the report reviewed and electronically signed by: CLAIRE WILKINSON MD on Dec 18 2023 11:45AM [facility] DIVISION OF RADIOLOGY * * *Final Report* * * DATE OF EXAM: Dec 18 2023 11:41AM [facility] 0294 - MRI BRAIN WO IVCON / [...] Left scleral banding. DIVISION OF RADIOLOGY Provider, [facility] - 12/18/2023 * * *Final Report* * * DATE OF EXAM: Dec 18 2023 11:41AM WR 0294 - MRI BRAIN WO IVCON / [...] and diffuse age advanced brain volume loss. General Activities Therapist: [facility] Transcribe Date/Time: Dec 18 2023 11:42A Dictated by : CLAIRE WILKINSON MD This examination was interpreted and the report reviewed and electronically signed by: CLIARE WILKINSON MD on Dec 18 2023 11:45AM EST [facility] Radiology Study observation (narrative) [facility] MR Brain WO contrastOrdered By: Ccf Provider on 12-18-2023 [facility] Basophil percentageOrdered B y: Altaf Manning on 10-04-2023 Bilirubin [Mass/Vol] 0.90 mg/dL 0.20-1.[address] [facility] Comment on above: For patients on eltr ombopag therapy, use of Dimension [place] TBIL is not recommended. Protein [Mass/Vol] 7.1 g/dL 6.4-8.2 [facility] Direct bilirubinOrdered By: Altaf Manning on 10-04-2023 Bilirubin.direct [Mass/Vol] 0.29 mg/dL 0.00-0.30 [facility] - Chemistry and C hemistry - challengeOrdered By: Altaf Manning on 10-04-2023 ALP [Catalytic activity/Vol] 97 U/L 45-117 [facility] ALT [Catalytic activity/Vol] 26 U/L 16-61 [facility] Globulin (S) [Mass/Vol] 3.9 g/dL 2.2-4.2 [facility] Thin prep Papanicolaou smear with manual screeningOrdered By: Altaf Manning on 10-04-2023 Thin prep Papanicolaou smear with manual screening 3.2 g/dL 3.2-5.0 [facility] Thin prep Papanicolaou smear with manual screening 22 U/L 15-37 [facility] No Panel Informationon 05-31 [facility] Absolute lymphocyte counton 02-08-2022 Lymphocytes Auto (Unsp spec) [#/Vol] 1.00 10*3/uL 0.83-4.51 [facility] Work Phone: Basophil percentageon 2021 Basophils/100 WBC (Bld) 0.4 % 0-1 [facility] Work Phone: Chloride [Moles/Vol] 104 mmol/L 98-[address] [facility] Work Phone: Eosinophils/100 WBC (Bld) 2.5 % 0-5 [facility] Work Phone: Glucose [Mass/Vol] 93 mg/dL 74-106 [facility] Work Phone: Neutrophils (Bld) [#/Vol] 6.9 10*3/uL 2.0-7.7 [facility] Work Phone: Neutrophils/100 WBC (Bld) 76.0 % 47-70 [facility] Work Phone: Potassium [Moles/Vol] 4.9 mmol/L 3.5-5.1 [facility] Work Phone: Comment on above: Moderate Hemolysis, Result may be falsely increased. Sodium [Moles/Vol] 135 mmol/L 136-145 [facility] Work Phone: WBC (Bld) [#/Vol] 9.1 10*3/uL 4.4-11.0 [facility] Work Phone: Blood erythrocytes count (nu mber/volume)on 02-08-2022 RBC (Bld) [#/Vol] 4.12 10*6/uL 4.6-6.2 [facility] Work Phone: Blood hemoglobin measurement (mass/volume)on 02-08-2022 Hemoglobin (Bld) [Mass/Vol] 13.2 g/dL 13.0-16.5 [facility] Work Phone: Blood lymphocytes/100 leukoc yteson 02-08-2022 Lymphocytes/100 WBC (Bld) 11.0 % 19-41 [facility] Work Phone: Blood monocytes/100 leukocyt eson 02-08-2022 Monocytes/100 WBC (Bld) 9.8 % 0-10 [facility] Work Phone: Blood platelet mean volumeon 02-08-2022 Platelet mean volume (Bld) [Entitic vol] 10.7 fL 6.2-12.0 [facility] Work Phone: Determination of erythrocyte mean corpuscular volume (MCV)on 02-08-2022 MCV (RBC) [Entitic vol] 96.6 fL 80-94 [facility] Work Phone: Erythrocyte sedimentation ra gabriela 02-08-2022 ESR (Bld) [Velocity] 24 mm/h 0-[address] [facility] Work Phone: Hematocrit Auto (Bld) [Volum e fraction]on 02-08-2022 Hematocrit (Bld) [Volume fraction] 39.8 % 40-54 [facility] Work Phone: Laboratory - Chemistry and C hemistry - challengeon 02-08-2022 CO2 [Moles/Vol] 28.0 mmol/L 21.0-32.0 [facility] Work Phone: Urea nitrogen/Creatinine [Mass ratio] 17.1 mg/mg 10-20 [facility] Work Phone: Laboratory - Hematology and Cell countson 02-08-2022 Erythrocyte distribution width (RBC) [Entitic vol] 49.8 fL 35.1-43.9 [facility] Work Phone: Erythrocyte distribution width (RBC) [Ratio] 14.1 % 11.6-14.6 [facility] Work Phone: Immature granulocytes/100 WBC (Bld) 0.300 % 0.0-0.9 [facility] Work Phone: Comment on above: IG% - Immature Granu locytes (promyelocytes, myelocytes and metamyelocytes) > 1% indicates that a LEFT SHIFT is Present. MCH (RBC) [Entitic mass] 32.0 pg 27.0-32.0 [facility] Work Phone: Nucleated RBC/100 WBC (Bld) [Ratio] 0 % 0-5 [facility] Work Phone: MCHC Auto (RBC) [Mass/Vol]on 02-08-2022 MCHC (RBC) [Mass/Vol] 33.2 g/dL 32-36 [facility] Work Phone: No Panel Informationon 02-08 Estimated Creatinine Clearance Calc 60.40 ml/min [facility] Work Phone: Estimated GFR (MDRD) Amer 99 mL/min >60 [facility] Work Phone: Comment on above: GFR Calc Estimated GFR (MDRD) Non-Af Amer 82 mL/min >60 [facility] Work Phone: Comment on above: Non- GFR Calc Platelets bldon 02-08-2022 Platelets (Bld) [#/Vol] 192 10*3/uL 150-450 [facility] Work Phone: Serum or plasma C reactive p rotein measurement (mass/volume)on 02-08-2022 CRP [Mass/Vol] 13.50 mg/L 0.0-3.0 [facility] Work Phone: Comment on above: C-Reactive Protein ( CRP) provides useful information for thediagnosis, therapy and monitoring of inflammatory processesand associated diseases. For the evaluation of Relative Riskfor Cardiovascular Disease, a High Sensitivity CRP (HSCRP)should be ordered. Serum or plasma calcium paula urement (mass/volume)on 02-08-2022 Calcium [Mass/Vol] 10.0 mg/dL 8.5-10.1 [facility] Work Phone: Serum or plasma creatinine m easurement (mass/volume)on 02-08-2022 Creatinine [Mass/Vol] 0.94 mg/dL 0.70-1.30 [facility] Work Phone: Comment on above: The validity of the calculated GFR & GFRAA in patients over 70 years has not been determined. Clinical correlation is essential. Serum or plasma urea nitroge n measurement (mass/volume)on 02-08-2022 Urea nitrogen [Mass/Vol] 16 mg/dL 7-18 [facility] Work Phone: Thin prep Papanicolaou smear with manual screeningon 02-08-2022 Thin prep Papanicolaou smear with manual screening 3 5-15 [facility] Work Phone: XR TIBIA FIBULA 2V AP/LAT LE FTon 02-07-2022 [facility] XR Tibia and Fibula - left A P and Lateralon 02-07-2022 IMPRESSION: Soft tissue swelling without radiographic evidence of acute osseous abnormality. General Activities Therapist: [facility] Transcribe Date/Time: Feb 07 2022 9:58A [...] the calf. [email or web address] _DIVISION OF RADIOLOGY Provider, [facility] - 02/07/2022 * * *Final Report* * [...] without radiographic evidence of acute osseous abnormality. General Activities Therapist: CARA Transcribe Date/Time: Feb 07 2022 9:58A Dictated by : KYREE DOS SANTOS MD This examination was interpreted and the report reviewed and electronically signed by: KYREE DOS SANTOS MD on Feb 07 2022 9:59AM EST [facility] Radiology Study observation (narrative) [facility] XR Tibia and Fibula - left A P and LateralOrdered By: Ccf Provider on 02-07-2022 [facility] Vital Signs Date Time Vital Sign Value Performing Clinician Facility 04-24-2025 13:03-0400 Body mass index (BMI) [Ratio] 26.48 kg/m2 Ang Vickers MD Work Phone: [facility] 04-24-2025 13:03-0400 Body weight 83.7 kg Ang Vickers MD Work Phone: [facility] 04-02-2025 09:45-0400 Diastolic blood pressure 79 mm[Hg] Dr. Ang Vickers MD Work Phone: 0(717)588-577941 [place] [address] 04-02-2025 09:45-0400 Heart rate 67 /min Dr. Ang Vickers MD Work Phone: 4(484)605-930741 [place] [address] 04-02-2025 09:45-0400 Systolic blood pressure 161 mm[Hg] Dr. Ang Vickers MD Work Phone: 2(892)731-587241 [place] [address] 04-02-2025 09:33-0400 Body height 177.[address] Ang Vickers MD Work Phone: 0(745)096-607541 [place] [address] 04-02-2025 09:33-0400 Body mass index (BMI) [Ratio] 26.9 kg/m2 Dr. Ang Vickers MD Work Phone: 9(584)258-713141 [place] [address] 04-02-2025 09:33-0400 Body weight 85.[address] Ang Vickers MD Work Phone: 9(378)313-798041 [place] [address] 04-02-2025 09:33-0400 Respiratory rate 16 /min Dr. Ang Vickers MD Work Phone: 7(146)308-002341 [place] [address] 04-01-2025 23:39-0400 Body temperature 98.3 [degF] Dr. Ang Vickers MD Work Phone: 4(390)495-313041 [place] [address] 04-01-2025 23:39-0400 Diastolic blood pressure 81 mm[Hg] Dr. Ang Vickers MD Work Phone: 2(873)749-211441 [place] [address] 04-01-2025 23:39-0400 Heart rate 84 /min Dr. Ang Vickers MD Work Phone: 2(944)049-168041 [place] [address] 04-01-2025 23:39-0400 Respiratory rate 17 /min Dr. Ang Vickers MD Work Phone: 5(008)216-342841 [place] [address] 04-01-2025 23:39-0400 SaO2% (BldA) [Mass fraction] 95 % Dr. Ang Vickers MD Work Phone: [facility] 04-01-2025 23:39-0400 Systolic blood pressure 149 mm[Hg] Dr. Ang Vickers MD Work Phone: [facility] 04-01-2025 22:18-0400 Body height 177.[address] Ang Vickers MD Work Phone: [facility] 04-01-2025 22:18-0400 Body mass index (BMI) [Ratio] 22.6 kg/m2 Dr. Ang Vickers MD Work Phone: [facility] 04-01-2025 22:18-0400 Body weight 71.[address] Ang Vickers MD Work Phone: [facility] 01-09-2025 10:21-0400 Body mass index (BMI) [Ratio] 27.24 kg/m2 Ang Vickers MD Work Phone: [facility] 01-09-2025 10:21-0400 Body temperature 97.3 [degF] Ang Vickers MD Work Phone: [facility] 01-09-2025 10:21-0400 Body weight 86.1 kg Ang Vickers MD Work Phone: [facility] 01-09-2025 10:21-0400 Diastolic blood pressure 76 mm[Hg] Ang Vickers MD Work Phone: [facility] 01-09-2025 10:21-0400 Heart rate 64 /min Ang Vickers MD Work Phone: [facility] 01-09-2025 10:21-0400 Respiratory rate 12 /min Ang Vickers MD Work Phone: [facility] 01-09-2025 10:21-0400 Systolic blood pressure 130 mm[Hg] Ang Vickers MD Work Phone: [facility] 11-22-2024 14:27-0400 Diastolic blood pressure 58 mm[Hg] Ang Vicekrs MD Work Phone: [facility] 11-22-2024 14:27-0400 Systolic blood pressure 124 mm[Hg] Ang Vickers MD Work Phone: [facility] 11-22-2024 14:00-0400 Body height 177.8 cm Ang Vickers MD Work Phone: [facility] 11-22-2024 14:00-0400 Body mass index (BMI) [Ratio] 27.84 kg/m2 Ang Vickers MD Work Phone: [facility] 11-22-2024 14:00-0400 Body temperature 96.6 [degF] Ang Vickers MD Work Phone: [facility] 11-22-2024 14:00-0400 Body weight 88 kg Ang Vickers MD Work Phone: [facility] 11-22-2024 14:00-0400 Heart rate 71 /min Ang Vickers MD Work Phone: [facility] 11-22-2024 14:00-0400 Respiratory rate 14 /min Ang Vickers MD Work Phone: [facility] 11-22-2024 14:00-0400 SaO2% (BldA) [Mass fraction] 99 % Ang Vickers MD Work Phone: [facility] 09-19-2024 08:19-0500 Body height 177.8 cm Bruce Walker MD Work Phone: [facility] 09-19-2024 08:19-0500 Body mass index (BMI) [Ratio] 26.54 kg/m2 Bruce Walker MD Work Phone: [facility] 09-19-2024 08:19-0500 Body weight 83.92 kg Bruce Walker MD Work Phone: [facility] 09-19-2024 08:19-0500 SaO2% (BldA) [Mass fraction] 97 % Bruce Walker MD Work Phone: [facility] 06-28-2024 08:17-0400 Body height 177.8 cm Agusto Marsh MD Work Phone: [facility] 06-28-2024 08:17-0400 Body mass index (BMI) [Ratio] 27.84 kg/m2 Agusto Marsh MD Work Phone: [facility] 06-28-2024 08:17-0400 Body weight 88 kg Agusto Marsh MD Work Phone: [facility] 06-28-2024 08:17-0400 Diastolic blood pressure 66 mm[Hg] Agusto Marsh MD Work Phone: [facility] 06-28-2024 08:17-0400 Heart rate 58 /min Agusto Marsh MD Work Phone: [facility] 06-28-2024 08:17-0400 SaO2% (BldA) [Mass fraction] 97 % Agusto Marsh MD Work Phone: [facility] 06-28-2024 08:17-0400 Systolic blood pressure 133 mm[Hg] Agusto Marsh MD Work Phone: [facility] 05-22-2024 15:25-0400 Body mass index (BMI) [Ratio] 28.77 kg/m2 Marsha Beaverer PA-C Work Phone: [facility] 05-22-2024 15:25-0400 Body weight 85.82 kg Marsha Beaverer PA-C Work Phone: [facility] 05-22-2024 15:25-0400 Diastolic blood pressure 80 mm[Hg] Marsha Beaverer PA-C Work Phone: [facility] 05-22-2024 15:25-0400 Heart rate 56 /min Marsha Queener PA-C Work Phone: [facility] 05-22-2024 15:25-0400 Respiratory rate 16 /min Marsha Queener PA-C Work Phone: [facility] 05-22-2024 15:25-0400 SaO2% (BldA) [Mass fraction] 97 % Marsha Beaverer PA-C Work Phone: [facility] 05-22-2024 15:25-0400 Systolic blood pressure 149 mm[Hg] Marsha Arias PA-C Work Phone: [facility] 05-20-2024 12:49-0400 Diastolic blood pressure 76 mm[Hg] Ang Vickers MD Work Phone: [facility] 05-20-2024 12:49-0400 Heart rate 72 /min Ang Vickers MD Work Phone: [facility] 05-20-2024 12:49-0400 Systolic blood pressure 151 mm[Hg] Ang Vickers MD Work Phone: [facility] 05-20-2024 12:38-0400 Body mass index (BMI) [Ratio] 28.69 kg/m2 Ang Vickers MD Work Phone: [facility] 05-20-2024 12:38-0400 Body temperature 96.8 [degF] Ang Vickers MD Work Phone: [facility] 05-20-2024 12:38-0400 Body weight 85.6 kg Ang Vickers MD Work Phone: [facility] 05-20-2024 12:38-0400 Respiratory rate 12 /min Ang Vickers MD Work Phone: [facility] 01-26-2024 13:07-0400 Body mass index (BMI) [Ratio] 28.89 kg/m2 Marsha Arias PA-C Work Phone: [facility] 01-26-2024 13:07-0400 Body weight 86.18 kg Marsha Beaverer PA-C Work Phone: [facility] 01-26-2024 13:07-0400 Diastolic blood pressure 91 mm[Hg] Marsha Arias PA-C Work Phone: [facility] 01-26-2024 13:07-0400 Heart rate 87 /min Marsha Arias PA-C Work Phone: [facility] 01-26-2024 13:07-0400 Respiratory rate 16 /min Marshalindsay Beaverer PA-C Work Phone: [facility] 01-26-2024 13:07-0400 SaO2% (BldA) [Mass fraction] 100 % Marsha Queener PA-C Work Phone: [facility] 01-26-2024 13:07-0400 Systolic blood pressure 159 mm[Hg] Marsha Beaverer PA-C Work Phone: [facility] 01-23-2024 10:22-0400 Body mass index (BMI) [Ratio] 28.89 kg/m2 Ang Vickers MD Work Phone: [facility] 01-23-2024 10:22-0400 Body weight 86.18 kg Ang Vickers MD Work Phone: [facility] 01-23-2024 10:22-0400 Diastolic blood pressure 82 mm[Hg] Ang Vickers MD Work Phone: [facility] 01-23-2024 10:22-0400 Heart rate 64 /min Ang Vickers MD Work Phone: [facility] 01-23-2024 10:22-0400 Respiratory rate 16 /min Ang Vickers MD Work Phone: [facility] 01-23-2024 10:22-0400 Systolic blood pressure 148 mm[Hg] Ang Vickers MD Work Phone: [facility] 12-05-2023 07:07-0400 Respiratory rate 16 /min Marsha er PA-C Work Phone: [facility] 12-05-2023 07:07-0400 SaO2% (BldA) [Mass fraction] 97 % Marsha Queener PA-C Work Phone: [facility] 12-05-2023 07:03-0400 Body weight 88.36 kg Marsha Queener PA-C Work Phone: [facility] 09-26-2023 14:19-0500 Diastolic blood pressure 77 mm[Hg] Dr. Ang Vickers Work Phone: [facility] 09-26-2023 14:19-0500 Heart rate 70 /min Dr. Ang Vickers Work Phone: [facility] 09-26-2023 14:19-0500 Respiratory rate 16 /min Dr. Ang Vickers Work Phone: [facility] 09-26-2023 14:19-0500 Systolic blood pressure 150 mm[Hg] Dr. Ang Vickers Work Phone: 2(230)979-453700 [place] [address] 09-26-2023 13:55-0500 Body height 177.[address] Ang Vickers Work Phone: [facility] 09-26-2023 13:55-0500 Body mass index (BMI) [Ratio] 27.8 kg/m2 Dr. Ang Vickers Work Phone: [facility] 09-26-2023 13:55-0500 Body weight 87.[address] Ang Vickers Work Phone: [facility] 06-12-2023 18:47-0400 Diastolic blood pressure 73 mm[Hg] Ang Vickers MD Work Phone: [facility] 06-12-2023 18:47-0400 Heart rate 74 /min Ang Vickers MD Work Phone: [facility] 06-12-2023 18:47-0400 Systolic blood pressure 156 mm[Hg] Ang Vickers MD Work Phone: [facility] 06-12-2023 18:44-0400 Body temperature 97.5 [degF] Ang Vickers MD Work Phone: [facility] 06-12-2023 18:44-0400 Body weight 89.13 kg Ang Vickers MD Work Phone: [facility] 06-12-2023 18:44-0400 Respiratory rate 16 /min Ang Vickers MD Work Phone: [facility] 06-12-2023 18:44-0400 SaO2% (BldA) [Mass fraction] 97 % Ang Vickers MD Work Phone: [facility] 10-26-2022 13:06-0500 Diastolic blood pressure 72 mm[Hg] Ang Vickers MD Work Phone: [facility] 10-26-2022 13:06-0500 Heart rate 67 /min Ang Vickers MD Work Phone: [facility] 10-26-2022 13:06-0500 Systolic blood pressure 128 mm[Hg] Ang Vickers MD Work Phone: [facility] 10-26-2022 12:57-0500 Body temperature 97.11 [degF] Ang Vickers MD Work Phone: [facility] 10-26-2022 12:57-0500 Body weight 89.81 kg Ang Vickers MD Work Phone: [facility] 09-28-2022 08:43-0500 Diastolic blood pressure 74 mm[Hg] Ang Vickers MD Work Phone: [facility] 09-28-2022 08:43-0500 Heart rate 65 /min Ang Vickers MD Work Phone: [facility] 09-28-2022 08:43-0500 Systolic blood pressure 149 mm[Hg] Ang Vickers MD Work Phone: [facility] 09-28-2022 08:31-0500 Body height 175.3 cm Ang Vickers MD Work Phone: [facility] 09-28-2022 08:31-0500 Body temperature 96.8 [degF] Ang Vickers MD Work Phone: [facility] 09-28-2022 08:31-0500 Body weight 91.17 kg Ang Vickers MD Work Phone: [facility] 09-28-2022 08:31-0500 Respiratory rate 16 /min Ang Vickers MD Work Phone: [facility] 05-09-2022 14:11-0400 Body weight 89.81 kg Mehrdad Victor MD Work Phone: [facility] 05-09-2022 14:11-0400 Diastolic blood pressure 72 mm[Hg] Mehrdad Victor MD Work Phone: [facility] 05-09-2022 14:11-0400 Heart rate 76 /min Mehrdad Victor MD Work Phone: [facility] 05-09-2022 14:11-0400 Systolic blood pressure 132 mm[Hg] Mehrdad Victor MD Work Phone: [facility] 03-28-2022 09:43-0400 Diastolic blood pressure 70 mm[Hg] Daniela Older MOLD HOLDER.MOLD HOLDER Work Phone: [facility] 03-28-2022 09:43-0400 Systolic blood pressure 150 mm[Hg] Daniela Older MOLD HOLDER.MOLD HOLDER Work Phone: [facility] 03-28-2022 08:39-0400 Body weight 89.81 kg Daniela Older MOLD HOLDER.MOLD HOLDER Work Phone: [facility] 03-28-2022 08:39-0400 Heart rate 90 /min Daniela Older MOLD HOLDER.MOLD HOLDER Work Phone: [facility] 03-28-2022 08:39-0400 Respiratory rate 14 /min Daniela Older MOLD HOLDER.MOLD HOLDER Work Phone: [facility] 02-11-2022 16:35-0400 Body height 176.5 cm Ang Vickers MD Work Phone: [facility] 02-11-2022 16:35-0400 Body temperature 98.01 [degF] Ang Vickers MD Work Phone: [facility] 02-11-2022 16:35-0400 Body weight 91.17 kg Ang Vickers MD Work Phone: [facility] 02-11-2022 16:35-0400 Diastolic blood pressure 60 mm[Hg] Ang Vickers MD Work Phone: [facility] 02-11-2022 16:35-0400 Heart rate 95 /min Ang Vickers MD Work Phone: [facility] 02-11-2022 16:35-0400 Respiratory rate 12 /min Ang Vickers MD Work Phone: [facility] 02-11-2022 16:35-0400 SaO2% (BldA) [Mass fraction] 95 % Ang Vickers MD Work Phone: [facility] 02-11-2022 16:35-0400 Systolic blood pressure 142 mm[Hg] Ang Vickers MD Work Phone: [facility] 02-08-2022 11:20-0400 Body height 177.[address] [facility] Work Phone: 02-08-2022 11:20-0400 Body mass index (BMI) [Ratio] 29.4 kg/m2 [facility] Work Phone: 02-08-2022 11:20-0400 Body temperature 98.4 [degF] [facility] Work Phone: 02-08-2022 11:20-0400 Body weight 92.[address] [facility] Work Phone: 02-08-2022 11:20-0400 Diastolic blood pressure 113 mm[Hg] [facility] Work Phone: 02-08-2022 11:20-0400 Heart rate 87 /min [facility] Work Phone: 02-08-2022 11:20-0400 Respiratory rate 18 /min [facility] Work Phone: 02-08-2022 11:20-0400 SaO2% (BldA) [Mass fraction] 98 % [facility] Work Phone: 02-08-2022 11:20-0400 Systolic blood pressure 151 mm[Hg] [facility] Work Phone: 02-07-2022 09:22-0400 Body temperature 97.7 [degF] Lisa Brantley MOLD HOLDER.MOLD HOLDER Work Phone: [facility] 02-07-2022 09:22-0400 Body weight 93.35 kg Lisa Brantley MOLD HOLDER.MOLD HOLDER Work Phone: [facility] 02-07-2022 09:22-0400 Diastolic blood pressure 90 mm[Hg] Lisa Brantley MOLD HOLDER.MOLD HOLDER Work Phone: [facility] 02-07-2022 09:22-0400 Heart rate 65 /min Lisa Brantley MOLD HOLDER.MOLD HOLDER Work Phone: [facility] 02-07-2022 09:22-0400 Respiratory rate 26 /min Lisa Brantley MOLD HOLDER.MOLD HOLDER Work Phone: [facility] 02-07-2022 09:22-0400 SaO2% (BldA) [Mass fraction] 97 % Lisa Brantley MOLD HOLDER.MOLD HOLDER Work Phone: [facility] 02-07-2022 09:22-0400 Systolic blood pressure 158 mm[Hg] Lisa Brantley MOLD HOLDER.MOLD HOLDER Work Phone: [facility] Encounters Encounter Date Encounter Type Care Provider Facility Start: 05-27-2025 End: 05-27-2025 ambulatory ANG VICKERS Facility:[facility] Start: 05-21-2025 [facility] Start: 05-21-2025 [facility] Facility:[facility] Start: 04-24-2025 End: 04-24-2025 Office outpatient visit 25 minutes Ang Vickers MD Work Phone: [facility] [place] Comment on above: Dizziness (Primary D x); Unsteadiness on feet; At risk for falling; Essential hypertension; Abnormal gait Start: 04-24-2025 End: 04-24-2025 ambulatory ANG VICKERS Facility:[facility] Start: 04-02-2025 End: 04-02-2025 Patient encounter procedure Aguilar Crowder Sheyla [facility] Work Phone: Start: 04-02-2025 End: 04-02-[address] Ang Vickers MD Work Phone: -[place] [facility] Start: 04-01-2025 End: 04-01-2025 Emergency department patient visit Dr. Ang Vickers MD Work Phone: -Emergency Department Work Phone: Start: 01-09-2025 End: 01-09-2025 Office outpatient visit 10 minutes Ang Vickers MD Work Phone: [facility] [place] Comment on above: Rash (Primary Dx) Start: 01-09-2025 End: 01-09-2025 ambulatory Ang Vickers MD Work Phone: [facility] [place] Comment on above: Rash Start: 11-22-2024 End: 11-22-2024 ambulatory ANG VICKERS Facility:[facility] Start: 11-22-2024 End: 11-22-2024 Patient encounter procedure Ang Vickers MD Work Phone: [facility] [place] Comment on above: Medicare annual well ness visit, subsequent (Primary Dx); Longstanding persistent atrial fibrillation (HCC); Essential hypertension; Atherosclerosis of [place] coronary artery of [place] heart without angina pectoris; Abnormal gait; Impaired fasting glucose; Pure Hypercholesterolemia Start: 10-10-2024 End: 12-10-2024 Follow-up encounter Ang Vickers MD Work Phone: [facility] [place] Start: 10-09-2024 End: 10-09-2024 ambulatory ANG VICKERS Facility:[facility] Start: 10-09-2024 End: 10-09-2024 E-mail encounter from caregiver Ang Vickers MD Work Phone: [facility] [place] Start: 10-09-2024 End: 10-09-2024 Follow-up encounter Ang Vickers MD Work Phone: [facility] [place] Comment on above: Lab follow up. Start: 10-03-2024 End: 10-03-2024 ambulatory Aguilar Crowder Sheyla SERRATO Facility:[facility] Start: 09-19-2024 End: 09-19-2024 ambulatory [facility] Facility:[facility] Start: 09-19-2024 End: 09-19-2024 ambulatory [facility] Facility:[facility] Start: 09-19-2024 End: 09-19-2024 Office outpatient visit 40 minutes Bruce Walker MD Work Phone: [facility] Comment on above: Multifactorial gait disorder (Primary Dx); Abnormal gait; Spinal stenosis of lumbar region, unspecified whether neurogenic claudication present; Neuropathy; Hypertension, unspecified type; Screening for diabetes mellitus (DM) Start: 08-01-2024 End: 08-01-2024 Telephone encounter Neurology Provider Neurology Comment on above: Received Outside Med [facility] Records (External referral to Neurological [facility]/) Start: 07-08-2024 End: 07-09-2024 Telephone encounter Marsha Arias PA-C Work Phone: Neurology Comment on above: requesting a disk (M RI disk being requested) Start: 06-28-2024 End: 06-28-2024 Patient encounter procedure Agusto Marsh MD Work Phone: Neurology Comment on above: Spinal stenosis of l umbar region, unspecified whether neurogenic claudication present (Primary Dx); Abnormality of gait; Parkinsonism, unspecified Parkinsonism type (HCC) Start: 05-22-2024 End: 05-22-2024 Patient encounter procedure Marsha Arias PA-C Work Phone: Neurology Comment on above: Abnormality of gait (Primary Dx); Orthostatic dizziness; Abnormal gait; Neuropathy; Spinal stenosis of lumbar region without neurogenic claudication Start: 05-20-2024 End: 05-20-2024 Office outpatient visit 25 minutes Ang Vickers MD Work Phone: [facility] [place] Comment on above: At risk for falling (Primary Dx); Need for influenza vaccination; Unsteadiness on feet; Longstanding persistent atrial fibrillation (HCC); Essential hypertension; Atherosclerosis of [place] coronary artery of [place] heart without angina pectoris; Screening for depression; Encounter for screening examination for other mental health and behavioral disorders Start: 04-12-2024 End: 04-12-2024 ambulatory Kristi Meneses NP Facility:[facility] Start: 04-03-2024 End: 04-03-2024 ambulatory Dominick Campos [facility] Comment on above: Unsteadiness on feet (Primary Dx); Orthostatic dizziness; Spinal stenosis of lumbar region without neurogenic claudication; Cervical stenosis of spinal canal Start: 03-29-2024 End: 03-29-2024 ambulatory Sonali London TORPEDO WORKER Work Phone: [facility] Comment on above: Unsteadiness on feet (Primary Dx); Orthostatic dizziness; Spinal stenosis of lumbar region without neurogenic claudication; Cervical stenosis of spinal canal Start: 03-20-2024 End: 03-20-2024 ambulatory Dominick Campos [facility] Comment on above: Unsteadiness on feet (Primary Dx); Orthostatic dizziness; Spinal stenosis of lumbar region without neurogenic claudication; Cervical stenosis of spinal canal Start: 03-13-2024 End: 03-13-2024 ambulatory Dominick Campos [facility] Comment on above: Unsteadiness on feet (Primary Dx); Orthostatic dizziness; Spinal stenosis of lumbar region without neurogenic claudication; Cervical stenosis of spinal canal Start: 03-06-2024 End: 03-06-2024 ambulatory Dominick Campos [facility] Comment on above: Unsteadiness on feet (Primary Dx); Orthostatic dizziness; Spinal stenosis of lumbar region without neurogenic claudication; Cervical stenosis of spinal canal Start: 02-07-2024 End: 02-07-2024 ambulatory Dominick Campos [facility] Comment on above: Spinal stenosis of l umbar region, unspecified whether neurogenic claudication present (Primary Dx); Cervical stenosis of spinal canal; Unsteadiness on feet; Orthostatic dizziness Start: 01-26-2024 End: 01-26-2024 Patient encounter procedure Marsha Arias PA-C Work Phone: Neurology Comment on above: Unsteadiness on feet (Primary Dx); Spinal stenosis of lumbar region, unspecified whether neurogenic claudication present; Cervical stenosis of spinal canal; Orthostatic dizziness Start: 01-25-2024 Telephone encounter Marsha sánchez PA-C Work Phone: Neurology Comment on above: Results Start: 01-24-2024 End: 01-24-2024 Subsequent hospital visit by physician [facility] (I-Stat/1.5t) Work Phone: Radiology Comment on above: Spinal stenosis of l umbar region, unspecified whether neurogenic claudication present [M48.061] Start: 01-23-2024 End: 01-23-2024 Patient encounter procedure Ang Vickers MD Work Phone: [facility] [place] Comment on above: Abnormal gait (Prima ry Dx); Orthostatic dizziness; Essential hypertension Start: 01-19-2024 Telephone encounter Marsha sánchez PA-C Work Phone: Neurology Comment on above: Results Start: 01-19-2024 End: 01-19-2024 ambulatory Emg 400) Neurology [facility] Comment on above: Procedure Start: 01-19-2024 End: 01-19-2024 Patient encounter procedure Emg 1 Neur [facility] (Max Weight 400) Neurology [facility] Start: 12-18-2023 End: 12-18-2023 Subsequent hospital visit by physician [facility] (I-Stat/1.5t) Work Phone: Radiology Comment on [...] Ang jain MD Work Phone: [facility] [place] Comment on above: Results Start: 11-21-2023 Non-patient / Non-visit Dr. Yola Vickers Work Phone: [facility] Start: 11-21-2023 End: 11-21-[address] Ang Vickers Work Phone: [facility] Work Phone: Start: 11-21-2023 End: 11-21-[address] Ang Vickers Work Phone: [facility] Work Phone: Start: 11-16-2023 Non-patient / Non-visit Dr. Yola Vickers Work Phone: [facility] Start: 11-16-2023 End: 11-16-[address] Ang Vickers Work Phone: [facility] Work Phone: Start: 11-16-2023 End: 11-16-[address] Ang Vickers Work Phone: [facility] Work Phone: Start: 10-04-2023 End: 10-04-[address] Ang Vickers Work Phone: [facility] Work Phone: Start: 10-04-2023 End: 10-04-[address] Ang Vickers Work Phone: [facility] Work Phone: Start: 10-03-2023 Non-patient / Non-visit Dr. Yola Vickers Work Phone: [facility] Work Phone: Start: 10-03-[address] Ang Vickers Work Phone: [facility] Work Phone: Start: 09-26-2023 End: 09-26-[address] Ang Vickers Work Phone: [facility] [facility] Work Phone: Start: 06-12-2023 End: 06-12-2023 Nurse Triage Ang Vickers MD Work Phone: [facility] [place] Comment on above: Orders; Diarrhea Diarrhea, unspecifie d type (Primary Dx); Essential hypertension Start: 10-26-2022 End: 10-26-2022 Patient encounter procedure Ang Vickers MD Work Phone: [facility] [place] Comment on above: Impaired fasting glu cose (Primary Dx); Essential hypertension; Hypomagnesemia; Pure hypercholesterolemia Start: 09-28-2022 End: 09-28-2022 Patient encounter procedure Ang Vickers MD Work Phone: [facility] [place] Comment on above: Medicare annual well ness visit, subsequent (Primary Dx); Essential hypertension; Longstanding persistent atrial fibrillation (HCC); Atherosclerosis of [place] coronary artery of [place] heart without angina pectoris; Hypomagnesemia; Impaired fasting glucose; Hypercalcemia; Pure hypercholesterolemia; Need for COVID-19 vaccine Start: 05-31-2022 End: 05-31-2022 Subsequent hospital visit by physician [facility] Work Phone: Radiology Comment on above: Testicular swelling [N50.89] Start: 05-31-2022 End: 05-31-2022 ambulatory Lisa Jim PT [facility] Comment on above: Vertigo (Primary Dx) Start: 05-10-2022 Telephone encounter Mehrdad Victor MD Work Phone: [facility] [place] Comment on above: Results Start: 05-09-2022 End: 05-09-2022 Patient encounter procedure Mehrdad Victor MD Work Phone: [facility] [place] Comment on above: Lightheaded (Primary Dx); Testicular swelling; Vertigo Start: 03-28-2022 End: 03-28-2022 Patient encounter procedure Daniela Lyons APRN.CNP Work Phone: [facility] [place] Comment on above: Essential hypertensi on (Primary Dx); Longstanding persistent atrial fibrillation (HCC); Impaired fasting glucose; Anemia, unspecified type; Obstructive sleep apnea Start: 02-18-2022 End: 02-18-2022 Patient encounter procedure Ang Vickers MD Work Phone: [facility] [place] Comment on above: Abrasion of left low er leg with infection, subsequent encounter (Primary Dx); Essential hypertension; Impaired fasting glucose; Hypomagnesemia; Anemia, unspecified type Start: 02-11-2022 End: 02-11-2022 Office outpatient visit 25 minutes Ang Vickers MD Work Phone: [facility] [place] Comment on above: Abrasion of left low er leg with infection, subsequent encounter (Primary Dx); Cellulitis of left lower extremity; Essential hypertension Start: 02-08-2022 End: 02-08-2022 [facility] Start: 02-08-2022 End: 02-08-2022 Patient encounter procedure Lisa Brantley APRN.MOLD HOLDER Work Phone: [place] [facility] Comment on above: Cellulitis of left l eg (Primary Dx); Failure of outpatient treatment Start: 02-07-2022 End: 02-07-2022 Subsequent hospital visit by physician [facility] Work Phone: Radiology Comment on above: Cellulitis of left l eg [L03.116] Start: 02-07-2022 End: 02-07-2022 Patient encounter procedure Lisa Brantley APRN.MOLD HOLDER Work Phone: [place] [facility] Comment on above: Cellulitis of left l eg (Primary Dx); Left leg pain; Fall on same level from slipping, tripping or stumbling, initial encounter; Encounter for immunization; Wound of left lower extremity, initial encounter Procedures Date Procedure Procedure Detail Performing Clinician Start: 04-01-2025 Plain x-ray of pelvi s and lower extremity Dr. Ang Vickers MD Work Phone: Start: 04-01-2025 CT of head without contrast Dr. Ang Vickers MD Work Phone: Start: 05-20-2024 Adult depression scr eening assessment [...] Dr. Ang Vickers Work Phone: Start: 09-28-2022 [employer] COVI D-19 BIVALENT BOOSTER VACCINE, AGE 12+ YR Ang Vickers MD Work Phone: Start: 05-31-2022 Dup-scan artl heike abdl/pel/scrot&/rpr orgn com Mehrdad Victor MD Work Phone: Start: 05-31-2022 Us scrotum & contents W tano Victor MD Work Phone: Start: 02-07-2022 Radiologic examinati on tibia & fibula 2 views Lisa Brantley MOLD HOLDER.MOLD HOLDER Work Phone: Plan of Treatment Date Care Activity Detail Author Start: 02-22-2033 Urine microalbumin profile DTaP,Tdap,Td Vaccine (4 - Td or Tdap) [facility] Start: 02-08-2032 Urine microalbumin profile [facility] Start: 09-19-2027 Diabetes Screening Diabetes Screening [facility] Start: 05-04-2026 Diabetes Screening Diabetes Screening [facility] Start: 11-22-2025 Medicare Annual Wellness Visit Medicare Annual Wellness Visit [facility] Start: 09-30-2025 DIABETES SCREEN DIABETES SCREEN [facility] Start: 09-09-2025 Hepatitis B surface antibody level LDL Cholesterol [facility] Start: 06-30-2025 End: 06-30-2025 Patient encounter procedure Neurology Comment on above: 1y follow up Start: 05-27-2025 End: 05-27-2025 Patient encounter procedure 05/27/2025 10:00 AM EDT Office Visit [facility] [place] [address] [facility] [place] [address] Ang Vickers MD [address] [facility] [place] [address] 6 month follow up [facility] [place] Comment on above: 6 month follow up Start: 05-20-2025 Anxiety Screening Anxiety Screening [facility] Start: 05-20-2025 Covid-19 Vaccine () Covid-19 Vaccine () [facility] Comment on above: Postponed from 04/28/2024 (Declined at t his time) Start: 05-20-2025 Depression Screening Depression Screening [facility] Start: 05-17-2025 DIABETES SCREEN DIABETES SCREEN [facility] Start: 05-09-2025 DIABETES SCREEN DIABETES SCREEN [facility] Start: 04-28-2025 Influenza vaccination Influenza Vaccine (#1) [facility] Start: 04-01-2025 [facility] Start: 11-22-2024 End: 11-22-2024 Patient encounter procedure 11/22/2024 2:20 PM EDT Office Visit [facility] [place] [address] [facility] [place] [address] Ang Vickers MD [address] [place] [address] Annual Medicare Wellness w/6 month follow-up [facility] [place] Comment on above: Annual Medicare Wellness w/6 month follo w-up Start: 11-21-2024 Covid-19 Vaccine ( season) Covid-19 Vaccine () [facility] Comment on above: Postponed from 04/28/2023 (Declined at t his time) Start: 11-21-2024 RSV Vaccine (1 - 1-dose 60+ series) RSV Vaccine (1 - 1-dose 60+ series) [facility] Comment on above: Postponed from 1997 (Declined at t his time) Start: 11-21-2024 RSV Vaccine (1 - 1-dose 75+ series) RSV Vaccine (1 - 1-dose 75+ series) [facility] Comment on above: Postponed from 2012 (Declined at t his time) Start: 10-09-2024 End: 01-08-2025 Urinalysis complete panel - Urine [facility] Work Phone: Comment on above: Expected: 10/09/2024, Expires: Start: 09-19-2024 End: 12-19-2024 JONATHON BY IFA WITH REFLEX [facility] Work Phone: Comment on above: Expected: 09/19/2024, Expires: Start: 09-19-2024 End: 12-19-2024 Cobalamin (Vitamin B12) [Mass/volume] in Serum or Plasma [facility] Comment on above: Expected: 09/19/2024, Expires: Start: 09-19-2024 End: 12-19-2024 Comprehensive metabolic 2000 panel - Serum or Plasma [facility] Comment on above: Expected: 09/19/2024, Expires: Start: 09-19-2024 End: 12-19-2024 COPPER BLOOD [facility] Comment on above: Expected: 09/19/2024, Expires: Start: 09-19-2024 End: 12-19-2024 Folate [Mass/volume] in Serum or Plasma [facility] Comment on above: Expected: 09/19/2024, Expires: Start: 09-19-2024 End: 12-19-2024 Methylmalonate [Moles/volume] in Serum or Plasma [facility] Comment on above: Expected: 09/19/2024, Expires: Start: 09-19-2024 End: 12-19-2024 PROTEIN ELECT RND UR W/INTERP [facility] Comment on above: Expected: 09/19/2024, Expires: Start: 09-19-2024 End: 12-19-2024 Pyridoxine [Mass/volume] in Serum or Plasma [facility] Comment on above: Expected: 09/19/2024, Expires: Start: 09-19-2024 End: 12-19-2024 Thyrotropin [Units/volume] in Serum or Plasma [facility] Comment on above: Expected: 09/19/2024, Expires: Start: 09-19-2024 End: 12-19-2024 Zinc [Mass/volume] in Serum or Plasma [facility] Comment on above: Expected: 09/19/2024, Expires: Start: 09-17-2024 DIABETES SCREEN DIABETES SCREEN [facility] Start: 09-11-2024 End: 09-11-2024 Patient encounter procedure 09/11/2024 11:30 AM EST Office Visit Neurology [address] [place], [place] [id number] Marsha Arias PA-C [address] [place], [place] [id number] 3 month follow up Neurology Comment on above: 3 month follow up Start: 08-30-2024 Hepatitis B surface antibody level LDL Cholesterol [facility] Start: 08-28-2024 Advance Directive Discussion Advance Directive Discussion [facility] Start: 07-24-2024 End: 07-24-2024 Patient encounter procedure 07/24/2024 4:00 PM EST Office Visit Neurology [address] [place] [id number] Agusto Marsh MD [address] [place] [address] Abnormality of gait [R26.9] Neurology Comment on above: Abnormality of gait [R26.9] Start: 05-22-2024 End: 05-22-2024 Patient encounter procedure 05/22/2024 3:30 PM EDT Office Visit Neurology [address] [place], [place] [id number] Marsha Arias PA-C [address] [facility] [place] [id number] 3m follow up Neurology Comment on above: 3m follow up Start: 05-20-2024 End: 05-20-2024 Patient encounter procedure 05/20/2024 12:40 PM EDT Office Visit Internal Medicine [place] [address] [place] [address] Ang Vickers MD [address] [place] [address] 4 mo follow up Internal Medicine [place] Comment on above: 4 mo follow up Start: 04-28-2024 Influenza vaccination [facility] Start: 04-24-2024 End: 04-24-2024 ambulatory 04/24/2024 8:15 AM EDT OT/PT/Speech Visit [facility] [address] [place] [address] Dominick Campos, PT M48.061 (ICD-10-CM) - Spinal stenosis of lumbar region, unspecified whether neurogenic claudication present [facility] Comment on above: M48.061 (ICD-10-CM) - Spinal stenosis of lumbar region, unspecified whether neurogenic claudication present Start: 04-17-2024 End: 04-17-2024 ambulatory 04/17/2024 8:15 AM EDT OT/PT/Speech Visit [facility] [address] [place] [address] Dominick Campos, PT M48.061 (ICD-10-CM) - Spinal stenosis of lumbar region, unspecified whether neurogenic claudication present [facility] Comment on above: M48.061 (ICD-10-CM) - Spinal stenosis of lumbar region, unspecified whether neurogenic claudication present Start: 04-10-2024 End: 04-10-2024 ambulatory 04/10/2024 8:15 AM EDT OT/PT/Speech Visit [facility] [address] [place] [address] Dominick Campos, PT M48.061 (ICD-10-CM) - Spinal stenosis of lumbar region, unspecified whether neurogenic claudication present [facility] Comment on above: M48.061 (ICD-10-CM) - Spinal stenosis of lumbar region, unspecified whether neurogenic claudication present Start: 04-03-2024 End: 04-03-2024 ambulatory 04/03/2024 8:15 AM EDT OT/PT/Speech Visit [facility] [address] [place] [address] Dominick Campos, PT M48.061 (ICD-10-CM) - Spinal stenosis of lumbar region, unspecified whether neurogenic claudication present [facility] Comment on above: M48.061 (ICD-10-CM) - Spinal stenosis of lumbar region, unspecified whether neurogenic claudication present Start: 03-29-2024 End: 03-29-2024 ambulatory 03/29/2024 8:00 AM EDT OT/PT/Speech Visit [facility] [address] [place] [address] [facility] [address] [place] [address] M48.061 (ICD-10-CM) - Spinal stenosis of lumbar region, unspecified whether neurogenic claudication present [facility] Comment on above: M48.061 (ICD-10-CM) - Spinal stenosis of lumbar region, unspecified whether neurogenic claudication present Start: 03-27-2024 End: 03-27-2024 ambulatory 03/27/2024 8:15 AM EDT OT/PT/Speech Visit [facility] [address] [place] [address] Dominick Campos, PT M48.061 (ICD-10-CM) - Spinal stenosis of lumbar region, unspecified whether neurogenic claudication present [facility] Comment on above: M48.061 (ICD-10-CM) - Spinal stenosis of lumbar region, unspecified whether neurogenic claudication present Start: 03-20-2024 End: 03-20-2024 ambulatory 03/20/2024 8:15 AM EDT OT/PT/Speech Visit [facility] [address] [place] [address] Dominick Campos, PT M48.061 (ICD-10-CM) - Spinal stenosis of lumbar region, unspecified whether neurogenic claudication present [facility] Comment on above: M48.061 (ICD-10-CM) - Spinal stenosis of lumbar region, unspecified whether neurogenic claudication present Start: 03-13-2024 End: 03-13-2024 ambulatory 03/13/2024 8:15 AM EDT OT/PT/Speech Visit [facility] [address] [place] [address] Dominick Campos, PT M48.061 (ICD-10-CM) - Spinal stenosis of lumbar region, unspecified whether neurogenic claudication present [facility] Comment on above: M48.061 (ICD-10-CM) - Spinal stenosis of lumbar region, unspecified whether neurogenic claudication present Start: 03-06-2024 End: 03-06-2024 ambulatory 03/06/2024 9:45 AM EDT OT/PT/Speech Visit [facility] [address] [place] [address] Dominick Campos, PT M48.061 (ICD-10-CM) - Spinal stenosis of lumbar region, unspecified whether neurogenic claudication present [facility] Comment on above: M48.061 (ICD-10-CM) - Spinal stenosis of lumbar region, unspecified whether neurogenic claudication present Start: 02-07-2024 End: 02-07-2024 ambulatory 02/07/2024 9:00 AM EDT OT/PT/Speech Visit [facility] [address] [place] [address] Dominick Campos, PT Spinal stenosis of lumbar region, unspecified whether neurogenic claudication present [M48.061]; Cervical stenosis of spinal canal [M48.02]; Unsteadiness on feet [R26.81]; Orthostatic dizziness [R42] [facility] Comment on above: Spinal stenosis of lumbar region, unspec ified whether neurogenic claudication present [M48.061]; Cervical stenosis of spinal canal [M48.02]; Unsteadiness on feet [R26.81]; Orthostatic dizziness [R42] Start: 01-26-2024 End: 01-26-2024 Patient encounter procedure 01/26/2024 1:00 PM EDT Office Visit Neurology [address] [place] [id number] Marsha Arias PA-C [address] [place] [address] Folow up MRI results Neurology Comment on above: Folow up MRI results Start: 01-24-2024 End: 01-24-2024 Patient encounter procedure 01/24/2024 1:40 PM EDT Appointment Radiology [address] [place] [address] Spinal stenosis of cervical region [M48.02] Radiology Comment on above: Spinal stenosis of cervical region [M48. 02] Start: 01-24-2024 Subsequent hospital visit by physician 01/24/2024 1:40 PM EDT Hospital Encounter Radiology [address] [place] [address] Spinal stenosis of lumbar region, unspecified whether neurogenic claudication present [M48.061] Radiology Comment on above: Spinal stenosis of lumbar region, unspec ified whether neurogenic claudication present [M48.061] Start: 01-23-2024 End: 01-23-2024 Patient encounter procedure 01/23/2024 10:20 AM EDT Office Visit Internal Medicine [place] [address] [place] [address] Ang Vickers MD [address] [place] [address] 2 month follow-up Internal Medicine [place] Comment on above: 2 month follow-up Start: 01-19-2024 End: 01-19-2024 ambulatory 01/19/2024 9:25 AM EDT Procedure Neurology [address] [place] [address] [place] [address] Abnormal gait [R26.9] Neurology Comment on above: Abnormal gait [R26.9] Start: 12-05-2023 End: 03-05-2024 C reactive protein [Mass/volume] in Serum or Plasma [facility] Work Phone: Comment on above: Expected: 12/05/2023, Expires: Start: 12-05-2023 End: 03-05-2024 Cobalamin (Vitamin B12) [Mass/volume] in Serum or Plasma [facility] Work Phone: Comment on above: Expected: 12/05/2023, Expires: Start: 12-05-2023 End: 03-05-2024 Erythrocyte sedimentation rate [facility] Work Phone: Comment on above: Expected: 12/05/2023, Expires: Start: 12-05-2023 End: 03-05-2024 Methylmalonate [Moles/volume] in Serum or Plasma [facility] Work Phone: Comment on above: Expected: 12/05/2023, Expires: Start: 12-05-2023 End: 03-05-2024 PROT ELECT SERUM WITH VINCENZO AND INTERP [facility] Work Phone: Comment on above: Expected: 12/05/2023, Expires: Start: 09-30-2023 Hepatitis B surface antibody level LDL CHOLESTEROL [facility] Start: 08-28-2023 Behavioral Health Screening Behavioral Health Screening [facility] Start: 04-28-2023 End: 06-28-2023 Basic metabolic 2000 panel - Serum or Plasma BASIC METABOLIC PNL Lab Routine Impaired fasting glucose Expected: 04/28/2023, Expires: 06/28/2023 [facility] Work Phone: Comment on above: Expected: 04/28/2023, Expires: 3 Start: 04-28-2023 Covid-19 Vaccine () Covid-19 Vaccine () [facility] Start: 04-28-2023 End: 06-28-2023 Hemoglobin A1c in Blood HGB A1C Lab Routine Impaired fasting glucose Expected: 04/28/2023, Expires: 06/28/2023 [facility] Work Phone: Comment on above: Expected: 04/28/2023, Expires: 3 Start: 04-28-2023 End: 06-28-2023 Magnesium [Mass/volume] in Serum or Plasma MAGNESIUM BLD Lab Routine Hypomagnesemia Expected: 04/28/2023, Expires: 06/28/2023 [facility] Work Phone: Comment on above: Expected: 04/28/2023, Expires: 3 Start: 09-29-2022 End: 11-29-2022 Basic metabolic 2000 panel - Serum or Plasma BASIC METABOLIC PNL Lab Routine Hypercalcemia Expected: 09/29/2022, Expires: 11/29/2022 [facility] Work Phone: Comment on above: Expected: 09/29/2022, Expires: Start: 09-29-2022 End: 11-29-2022 Hemoglobin A1c in Blood HGB A1C Lab Routine Impaired fasting glucose Expected: 09/29/2022, Expires: 11/29/2022 [facility] Work Phone: Comment on above: Expected: 09/29/2022, Expires: 3 Start: 09-29-2022 End: 11-29-2022 Lipid 1996 panel - Serum or Plasma LIPID PANEL BASIC Lab Routine Pure hypercholesterolemia Expected: 09/29/2022, Expires: 11/29/2022 [facility] Work Phone: Comment on above: Expected: 09/29/2022, Expires: 3 Start: 09-29-2022 End: 11-29-2022 Magnesium [Mass/volume] in Serum or Plasma MAGNESIUM BLD Lab Routine Hypomagnesemia Expected: 09/29/2022, Expires: 11/29/2022 [facility] Work Phone: Comment on above: Expected: 09/29/2022, Expires: Start: 09-29-2022 End: 11-29-2022 Parathyrin.intact [Mass/volume] in Serum or Plasma PTH INTACT BLD Lab Routine Hypercalcemia Expected: 09/29/2022, Expires: 11/29/2022 [facility] Work Phone: Comment on above: Expected: 09/29/2022, Expires: 3 Start: 09-17-2022 Hepatitis B surface antibody level LDL CHOLESTEROL [facility] Start: 05-10-2022 End: 05-10-2023 25-hydroxyvitamin D3 [Mass/volume] in Serum or Plasma VITAMIN D 25 HYDROXY Lab Routine Renal insufficiency Hypercalcemia Expected: 05/10/2022, Expires: 05/10/2023 [facility] Work Phone: Comment on above: Expected: 05/10/2022, Expires: 3 Start: 05-10-2022 End: 07-10-2022 Basic metabolic 2000 panel - Serum or Plasma BASIC METABOLIC PNL Lab Routine Renal insufficiency Hypercalcemia Expected: 05/10/2022, Expires: 07/10/2022 [facility] Work Phone: Comment on above: Expected: 05/10/2022, Expires: 2 Start: 05-10-2022 End: 05-10-2023 Calcium.ionized [Moles/volume] in Blood CALCIUM IONIZED BLOOD Lab Routine Renal insufficiency Hypercalcemia Expected: 05/10/2022, Expires: 05/10/2023 [facility] Work Phone: Comment on above: Expected: 05/10/2022, Expires: 3 Start: 05-10-2022 End: 05-10-2023 Parathyrin.intact [Mass/volume] in Serum or Plasma PTH INTACT BLD Lab Routine Renal insufficiency Hypercalcemia Expected: 05/10/2022, Expires: 05/10/2023 [facility] Work Phone: Comment on above: Expected: 05/10/2022, Expires: 3 Start: 05-10-2022 End: 07-10-2022 Urinalysis complete panel - Urine URINALYSIS, WITH MICROSCOPIC Lab Routine Renal insufficiency Hypercalcemia Expected: 05/10/2022, Expires: 07/10/2022 [facility] Work Phone: Comment on above: Expected: 05/10/2022, Expires: 2 Start: 05-09-2022 End: 07-09-2022 Basic metabolic 2000 panel - Serum or Plasma [facility] Work Phone: Comment on above: Expected: 05/09/2022, Expires: 2 Start: 05-09-2022 End: 07-09-2022 CBC W Auto Differential panel - Blood [facility] Work Phone: Comment on above: Expected: 05/09/2022, Expires: 2 Start: 04-28-2022 Influenza vaccination INFLUENZA (#1) [facility] Start: 02-14-2022 COVID-19 VACCINE (5 - Booster for Pfizer series) COVID-19 VACCINE (5 - Booster for Pfizer series) [facility] Start: 02-08-2022 Bacteria identified in Blood by Culture Blood Culture [facility] Work Phone: Start: 02-08-2022 Urine microalbumin profile DTAP,TDAP,TD (1 - Tdap) [facility] Start: 10-02-2021 COVID-19 VACCINE (4 - Booster for Pfizer series) COVID-19 VACCINE (4 - Booster for Pfizer series) [facility] Start: 08-28-2021 ADVANCE DIRECTIVE DISCUSSION ADVANCE DIRECTIVE DISCUSSION [facility] Start: 08-28-2021 DEPRESSION ASSESSMENT DEPRESSION ASSESSMENT [facility] Start: 2012 RSV Vaccine (1 - 1-dose 75+ series) RSV Vaccine (1 - 1-dose 75+ series) [facility] Start: 12-03-1953 Anxiety Screening Anxiety Screening [facility] Start: 12-03-1953 Depression Screening Depression Screening [facility] Cardiac event recording [facility] Clostridioides difficile toxin genes [Presence] in Stool by BLAYNE with probe detection C. DIFFICILE PCR Lab Routine Diarrhea, unspecified type Ordered: 06/12/2023 [facility] Work Phone: Comment on above: Ordered: 06/12/2023 End: 12-04-2024 EMG(NEURO/NI) EMG(NEURO/NI) EMG Routine Abnormal gait 1 Occurrences starting 12/05/2023 until 12/04/2024 [facility] Work Phone: Comment on above: 1 Occurrences starting 12/05/2023 until 12/04/2024 FECAL LACTOFERRIN/LEUKOCYTES FECAL LACTOFERRIN/LEUKOCYTES Lab Routine Diarrhea, unspecified type Ordered: 06/12/2023 [facility] Work Phone: Comment on above: Ordered: 06/12/2023 End: 01-03-2025 MR Brain WO contrast MRI BRAIN WO IVCON Radiology Routine Orthostatic dizziness Abnormal gait 1 Occurrences starting 12/05/2023 until 01/03/2025 [facility] Work Phone: Comment on above: 1 Occurrences starting 12/05/2023 until 01/03/2025 End: 02-17-2025 MR Cervical spine WO contrast MRI CERVICAL SPINE WO IVCON Radiology Routine Spinal stenosis of cervical region Abnormal gait 1 Occurrences starting 01/19/2024 until 02/17/2025 [facility] Comment on above: 1 Occurrences starting 01/19/2024 until 02/17/2025 End: 02-17-2025 MR Lumbar spine WO contrast MRI LUMBAR SPINE WO IVCON Radiology Routine Spinal stenosis of lumbar region, unspecified whether neurogenic claudication present Abnormal gait 1 Occurrences starting 01/19/2024 until 02/17/2025 [facility] Work Phone: Comment on above: 1 Occurrences starting 01/19/2024 until 02/17/2025 Patient Education [facility] Work Phone: Patient referral [facility] Work Phone: PT PLAN OF CARE CERTIFICATION PT PLAN OF CARE CERTIFICATION Procedures Routine Vertigo Ordered: 05/31/2022 [facility] Comment on above: Ordered: 05/31/2022 End: 06-08-2023 Us scrotum & contents US SCROTUM AND CONTENTS Radiology Routine Testicular swelling 1 Occurrences starting 05/09/2022 until 06/08/2023 [facility] Work Phone: Comment on above: 1 Occurrences starting 05/09/2022 until 06/08/2023 [facility] Immunizations Immunization Date Immunization Notes Care Provider Shari lyndsay 05-20-2024 influenza, high dose seasonal, preservative-free Ang Vickers MD Work Phone: [facility] 05-20-2024 influenza virus vacc ine, unspecified formulation Ang Vickers MD Work Phone: [facility] 05-24-2023 influenza (HD-IIV4) vaccine, age 65+ yr, high dose, quadrivalent, PF (FLUZONE HIGH-DOSE) Ang Vickers MD Work Phone: [facility] Work Phone: 05-24-2023 influenza virus vacc ine, unspecified formulation Dominickkeaton Campos [facility] 09-28-2022 COVID-19 booster vaccine, age 12+ yr, bivalent (PFIZER-BIONTMecox Lane) Ang Vickers MD Work Phone: [facility] Work Phone: 07-04-2022 influenza (aIIV4) vaccine, age 65+ yr, quadrivalent, PF (FLUAD QUADRIVALENT) Ang Vickers MD Work Phone: [facility] Work Phone: 02-07-2022 tetanus and diphther ia toxoids, adsorbed, preservative free, for adult use (5 Lf of tetanus toxoid and 2 Lf of diphtheria toxoid) Lisa Brantley MOLD HOLDER.MOLD HOLDER Work Phone: [facility] Work Phone: 02-07-2022 TD(adult) unspecifie d formulation Lisa Brantley MOLD HOLDER.MOLD HOLDER Work Phone: [facility] Work Phone: 12-20-2021 COVID-19 vaccine (UNSPECIFIED) Daniela Lyons MOLD HOLDER.MOLD HOLDER Work Phone: [facility] 05-26-2021 influenza, high-dose , quadrivalent vaccine (FLUZONE HIGH DOSE QUADRIVALENT) Lisa Brantley MOLD HOLDER.MOLD HOLDER Work Phone: [facility] 10-13-2020 COVID-19 vaccine, ag e 12+ yr (PFIZER-BIONTECH - PURPLE TOP) Lisa Brantley MOLD HOLDER.MOLD HOLDER Work Phone: [facility] Work Phone: 09-22-2020 COVID-19 vaccine, ag e 12+ yr (PFIZER-BIONTECH - PURPLE TOP) Lisa Brantley MOLD HOLDER.MOLD HOLDER Work Phone: [facility] Work Phone: 06-26-2020 influenza, high dose seasonal, preservative-free Lisa Brantley MOLD HOLDER.MOLD HOLDER Work Phone: [facility] Work Phone: 07-01-2019 influenza, high dose seasonal, preservative-free Lisa Brantley MOLD HOLDER.MOLD HOLDER Work Phone: [facility] Work Phone: 07-01-2019 pneumococcal polysaccharide vaccine, 23 valent Lisa Brantley MOLD HOLDER.[facility] Work Phone: [facility] Work Phone: 09-11-2018 zoster vaccine recombinant Lisa Brantley MOLD HOLDER.MOLD HOLDER Work Phone: [facility] Work Phone: 06-25-2018 zoster vaccine recombinant Lisa Brantley MOLD HOLDER.MOLD HOLDER Work Phone: [facility] 06-12-2018 influenza virus vacc ine, unspecified formulation Lisa Brantley MOLD HOLDER.MOLD HOLDER Work Phone: [facility] Work Phone: 06-11-2018 Influenza virus vaccine [facility] 06-07-2018 influenza, high dose seasonal, preservative-free Lisa Brantley MOLD HOLDER.MOLD HOLDER Work Phone: [facility] 05-25-2017 influenza, high dose seasonal, preservative-free Lisa Brantley MOLD HOLDER.MOLD HOLDER Work Phone: [facility] Work Phone: 05-24-2017 influenza, seasonal, injectable Lisa Brantley MOLD HOLDER.MOLD HOLDER Work Phone: [facility] 07-15-2016 influenza, high dose seasonal, preservative-free Lisa Brantley MOLD HOLDER.MOLD HOLDER Work Phone: [facility] Work Phone: 07-28-2015 pneumococcal conjuga te vaccine, 13 valent Lisa Brantley MOLD HOLDER.[facility] Work Phone: [facility] Work Phone: 07-19-2013 diphtheria, tetanus toxoids and acellular pertussis vaccine, unspecified formulation Daniela Serena MOLD HOLDER.[facility] Work Phone: [facility] 07-12-2013 influenza virus vacc ine, unspecified formulation Lisa Brantley MOLD HOLDER.[facility] Work Phone: [facility] Work Phone: 08-28-2012 tetanus and diphther ia toxoids, adsorbed, preservative free, for adult use (2 Lf of tetanus toxoid and 2 Lf of diphtheria toxoid) Lisa Brantley MOLD HOLDER.[facility] Work Phone: [facility] Work Phone: 05-22-2012 influenza virus vacc ine, unspecified formulation Lisa Brantley MOLD HOLDER.[facility] Work Phone: [facility] Work Phone: 05-25-2011 influenza virus vacc ine, unspecified formulation Lisa Brantley MOLD HOLDER.MOLD HOLDER Work Phone: [facility] Work Phone: 07-02-2008 influenza virus vacc ine, unspecified formulation Lisa Brantley MOLD HOLDER.[facility] Work Phone: [facility] Work Phone: 08-25-2006 tetanus and diphther ia toxoids, adsorbed, preservative free, for adult use (2 Lf of tetanus toxoid and 2 Lf of diphtheria toxoid) Lisa Brantley APRN.MOLD HOLDER Work Phone: [facility] Work Phone: 06-28-2003 pneumococcal polysaccharide vaccine, 23 valent Lisa Brantley MOLD HOLDER.MOLD HOLDER Work Phone: [facility] Payers Date Payer Category Payer Self-pay [id number] 2024 Unknown [id number] 2023 Private Health Insurance [facility] [id number] 2023 Medicare [id number] 2021 Unknown [facility] MEDICARE SUPPLEMENT [id number] 2021-Present [phone] [address] [facility] [place] [address] Indemnity [id number] 2021 Unknown [id number] 2009 Unknown [id number] 2002 Medicare MEDICARE MEDICAR E A AND B [id number] 2002-Present [phone] [address] [address] [place] [address] Medicare [id number] 2002 Medicare [id number] 2002 Medicare [id number] Private Health Insurance [facility] [id number] Unknown SELF PAY INSURANCE [id number] Unknown [employer] [id number] Unknown [id number] Unknown [id number] Unknown [id number] Unknown [id number] Social History Date Type Detail Facility Start: 05-09-2022 End: 05-20-2024 Tobacco smoking status NHIS Ex-smoker [facility] Start: [birth year]-28-1957 End: 08-28-1977 History of tobacco use Current smoker [facility] Start: 08-28-1957 End: 08-28-1977 History of tobacco use Cigarette Smoker [facility] Start: 02-07-2022 End: 11-22-2024 Alcohol intake Current drinker of alcohol (finding) [facility] Start: 02-07-2022 End: 05-18-2023 Alcohol intake [facility] Start: 09-24-2021 End: 02-10-2022 History SDOH Alcohol Frequency 4 [facility] Start: 09-24-2021 End: 02-10-2022 History SDOH Alcohol Std Drinks 1 [facility] Start: 12-25-2019 End: 02-10-2022 History SDOH Social Connections Get Together 3 [facility] Start: 09-24-2021 End: 02-10-2022 History SDOH Physical Activity MPS 5 [facility] Start: 12-25-2019 End: 02-10-2022 History SDOH Transport Med 2 [facility] Start: 12-25-2019 Education 16 [facility] Start: 1935 Sex Assigned At Not on file [facility] Start: 01-28-2022 End: 05-09-2022 Exposure to SARS-CoV-2 (event) Not sure [facility] Work Phone: Start: 02-08-2022 End: 09-26-2023 Tobacco smoking status NHIS Unknown if ever smoked [facility] Start: 09-14-2018 Heavy [facility] Start: 09-14-2018 None [facility] Start: 09-14-2018 Spouse/ Significant Other [facility] Start: 09-15-2018 Non-smoker [facility] Start: 1935 Sex Assigned At Male [facility] Start: 05-09-2022 End: 05-20-2024 Tobacco use and exposure Smokeless tobacco non-user [facility] Start: 05-18-2023 End: 05-13-2024 Social connection and isolation panel [facility] Do you belong to any clubs or organizations such as episcopalian groups, unions, fraternal or athletic groups, or school groups? Yes [facility] Are you now , , , , never or living with a partner? [facility] How often to you hav e a drink containing alcohol? 2-4 times a month [facility] How many standard dr inks containing alcohol do you have on a typical day? 1 or 2 [facility] How often do you hav e 6 or more drinks on 1 occasion? Never [facility] Start: 07-29-2012 How hard is it for you to pay for the very basics like food, housing, medical care, and heating Not hard at all [facility] Do you feel stress - tense, restless, nervous, or anxious, or unable to sleep at night because your mind is troubled all the time - these days [OSQ] Not at all [facility] (I/We) worried buster er (my/our) food would run out before (I/we) got money to buy more. Never true [facility] In the past 12 month s, was there a time when you were not able to pay the mortgage or rent on time? No [facility] Start: 12-26-2019 Gender identity Identifies as male gender (finding) [facility] Work Phone: How often to you hav e a drink containing alcohol? 2-3 time sa week [facility] Functional Status Date Assessment Result Facility 11-15-2024 Total score [AUDIT-C] 3 11/16/19 3:36 PM EDT User, [email or web address] [facility] 11-15-2024 How often to you hav e a drink containing alcohol? 2-3 times a week 11/15/2024 3:36 PM EDT User, [email or web address] 2-3 time week [facility] 11-15-[address] inks containing alcohol do you have on a typical day? 1 or 2 11/15/2024 3:36 PM EDT User, [email or web address] 1 or 2 [facility] 11-15-2024 How often do you hav e 6 or more drinks on 1 occasion? Never 11/15/2024 3:36 PM EDT User, Mychart Never [facility] 2014 Are you deaf, or do you have serious difficulty hearing No 2014 11:31 AM Stacie Schneider LPN No [facility] 2014 Are you blind, or do you have serious difficulty seeing, even when wearing glasses No 2014 11:31 AM Stacie Schneider LPN No [facility] 2014 Do you have serious difficulty walking or climbing stairs No 2014 11:31 AM Stacie Schneider LPN No [facility] 2014 Do you have difficul ty dressing or bathing No 2014 11:31 AM Stacie Schneider LPN No [facility] 2014 Because of a physica l, mental, or emotional condition, do you have difficulty doing errands alone such as visiting a physician's office or shopping No 2014 11:31 AM Stacie Schneider LPN No [facility] Mental Status Date Assessment Result Facility 2014 Because of a physica l, mental, or emotional condition, do you have serious difficulty concentrating, remembering, or making decisions No 2014 11:31 AM EDT Stacie Lockwood LPN No [facility] Clinical Notes 05-16-2013 to 05-27-2025 Ang Vickers MD - 04/24/2025 1:20 PM EDT Note Date & Type Note Facility 05-27-2025 Note HNO ID: [id number] Author: ANG VICKERS MD Service: ? Author Type: Physician Type: Progress Notes Filed: 05/28/2025 02:00 Note Text: Subjective Elyse Maloney is a 89 year old male. Recording using [employer] software for draft documentation of the visit was discussed with the patient/authorized authorization representative; all questions welcomed and answered. Patient/authorized authorization representative agreed to proceed Elyse is an 89-year-old male with a history of vertebra and nerve issues presenting for follow-up of falling spells.Falling Spells and Unsteadiness:Elyse and his caregiver report that he has experienced multiple falls. They recall an emergency department visit on April 01 at [facility] after a hard fall at home, during which a scan was performed to rule out a brain bleed and a hip X-ray showed no fracture. He reports significant bruising from that event, which has since improved. He describes not knowing precisely how he fell on that occasion and feeling unsteady when he stands. His caregiver states that he cannot stand by himself for long and that he often becomes dizzy. They express concern about ongoing instability and the risk of injury, noting that he now uses a life alert system (obtained 2 weeks ago) for added safety. According to the caregiver, he sees a [employer] who has found his heart function to be stable. They add that he has not undergone a formal tilt table test with this [employer]. He is on a blood thinner, and both he and his caregiver worry about the potential severity of injuries if he continuesto fall. He routinely uses a walking stick for stability.Vertebra and Nerve Issues:He states that he still contends with vertebra-related nerve problems that affect his balance once he stands. A surgeon, identified as Dr. Jane, indicated that surgery could address his vertebral concerns but voiced caution about his age and the risk of cardiac or cerebrovascular complications during surgery. Elyse has not decided whether to pursue it. He had a special scan on the May 21 as part of his evaluation, after which the neurologist indicated that Parkinson's disease was unlikely. He remains concerned that the ongoing nerve issue may contribute to his falling spells. He reports that taking a moment to orient himself upon standing helps decrease his instability. The caregiver affirms that they felt the neurological evaluation was thorough, though they were initially surprised by the negative findings for Parkinson's. 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 cyanocobalamin (VITAMIN B-12) 1,000 mcg tab Take 1,000 mcg by mouth once daily. vit A/vit C/vit E/zinc/copper (PRESERVISION AREDS ORAL) [...] facility-administered medications for this visit. Objective BP 116/54 (BP Site: Right Arm, BP Position: Sitting, BP Cuff Size: Large Adult) Pulse (!) 56 Temp 36.4 ?C (97.6 ?F) (Temporal) Wt 85.3 kg (188 lb 0.8 oz) BMI 26.98 kg/m? Physical Exam Constitutional: General: He is not in acute distress. Appearance: He is not ill-appearing. Neurological: General: No focal deficit present. Mental Status: He is alert. Gait: Gait abnormal. Comments: W (more content not included)... [facility] 05-21-2025 Note HNO ID: [id number] Author: PADMINI BELTRAN RT(R) Service: Radiology Author Type: Technologist Type: Progress Notes Filed: 05/21/2025 07:59 Note Text: RADIOLOGY SERVICE PROGRESS NOTE SERVICE DATE: 05/21/2025 SERVICE TIME: 7:51 AM PATIENT IDENTITY VERIFICATION COMPLETED USING TWO (2) STANDARD IDENTIFIERS: Name and Date of confirmed by patient verbally and Name and Date of confirmed by identification band FALL SCREENING: Has the patient had 2 falls in the last year or 1 fall with injury or currently using an Ambulatory Assistive Device (Walker, Cane, Wheelchair, Crutches, etc.)? No PATIENT GENDER DATA: .male ALLERGIES: Reviewed and unchanged MEDICATIONS REVIEWED: Yes PATIENT RELEVANT IMPLANT DATA REVIEWED: Not Applicable PATIENT PRESENTS WITH AN IMPLANTABLE OR ATTACHED HAND SCRAPER: No CREATININE: Creatinine Date Value Ref Range Status 09/19/2024 0.87 0.73 - 1.22 mg/dL Final 08/30/2023 1.0 0.6 - 1.3 MG/DL Final 05/04/2023 0.89 0.73 - 1.22 mg/dL Final Estimated Glomerular Filtration Rate Date Value Ref Range Status 09/19/2024 84 >=60 mL/min/1.73m? Final Comment: Estimated Glomerular Filtration Rate (eGFR) is calculated using the 2020 CKD-EPI creatinine equation. This equation utilizes serum creatinine, sex, and age as parameters. The creatinine assay has traceable calibration to isotope dilution-mass spectrometry. Refer to KDIGO guidelines for clinical interpretation. In patients with unstable renal function, e.g. those with acute kidney injury, the eGFR may not accurately reflect actual GFR. eGFR- Date Value Ref Range Status 09/17/2021 >60 Final P.O.C.T. RESULTS: N/A May 21, [address] PERFORMED: No IV SITE: Ambulatory: A peripheral IV was started in the Right antecubital site with a Angio cath: 22 gauge. POST EXAM PIV STATUS: Discontinued PROCEDURE TYPE: NM INJECT: Dayami scan . 5.9 mCi I 123 DatScan. Administered By: Padmini HERRERAMT . 4 drops Lugol's solution at 0741. ADMINISTRATION TIME: 0756 PATIENT DISCHARGED TO: Ambulatory patient, left [place] department area. Is this a therapy: No A Diagnostic radioactive procedure has taken place, with no further precautions necessary other than routine body substance precautions. More information regarding radiation safety can be found using this link: [email or web address]%[email or web address] [email or web address] SIGNATURE: RT Yaw(R) PATIENT NAME: Elyse Maloney DATE: May 21, 2025 TIME: 7:51 AM PAGER/CONTACT #: [facility] 05-15-2025 Note HNO ID: [id number] Author: MIRIAM DÍAZ MA Service: ? Author Type: Printed Circuit Board Layout Designer Type: Progress Notes Filed: 05/15/2025 13:17 Note Text: POPULATION HEALTH NAVIGATION OUTREACH Action/FYI Updated appointment note Topic Due (Y or N) Comments Medicare Wellness PCP Follow up Colorectal Cancer Screening Controlling Blood Pressure A1C HCC Flu Vaccine Care Everywhere Reviewed MyChart Activation Updated Appointment Note Reason for Outreach Care Gap/HCC or Scheduling Wellness Visits Care Gaps due: Medicare Annual Wellness Visit Patient Contacted: Unable or unnecessary to reach patient: Patient already scheduled Updated appointment notes Navigation Signature: Miriam Díaz MA May 15, 2025 1:16 PM [facility] 05-15-2025 Note Patient Outreach (NORIS TNAV) -------- ELYSE MALONEY ([id number]) 1935 M Date Time Provider Department 05/15/25 MIRIAM DÍAZ During your visit today, we recorded the following information about you: Miriam Díaz MA 05/15/2025 1:17 PM Signed POPULATION HEALTH NAVIGATION OUTREACH Action/ Updated appointment note Topic Due (Y or N) Comments Medicare Wellness PCP Follow up Colorectal Cancer Screening Controlling Blood Pressure A1C HCC Flu Vaccine Care Everywhere Reviewed MyChart Activation Updated Appointment Note Reason for Outreach Care Gap/HCC or Scheduling Wellness Visits Care Gaps due: Medicare Annual Wellness Visit Patient Contacted: Unable or unnecessary to reach patient: Patient already scheduled Updated appointment notes Navigation Signature: Miriam Díaz MA May 15, 2025 1:16 PM Allergies As of Date: 05/15/2025 (No Active Allergies) Date Reviewed: 04/24/2025 Reviewed by: Elaine Jackson LPN - Fully Assessed Reason for Visit: Population Health Navigation Outreach [3910] Cmt: Ajay BAKERALDAIR CATALINA PCSA Prescriptions as of 05/15/2025 - vit A/vit C/vit E/zinc/copper (PRESERVISION AREDS ORAL) Take by mouth. - furosemide (LASIX) 40 mg tablet Take 1 tablet by mouth every other day. - metoprolol succinate ER (TOPROL XL) 100 mg Take 1 tablet by mouth once daily. - atorvastatin (LIPITOR) 40 mg tablet Take [...] tablet daily. Problem List As Of Date 05/15/2025 Noted Resolved Pure Hypercholesterolemia [E78.00] 04/05/2005 Essential [...] for falling [Z91.81] 05/20/2024 Encounter Status:Closed by MIRIAM DÍAZ on 05/15/25 [facility] 04-24-2025 Note HNO ID: [id number] Author: ANG VICKERS MD Service: ? Author Type: Physician Type: Progress Notes Filed: 04/24/2025 19:40 Note Text: Subjective Elyse Maloney is a 89 year old male here with spouse. He was in the ER 04/01/25 for a fall at home. He just got up to go to the kitchen while watching TV. He did not recall specifics, nor symptoms around the fall. In the ER his CT scan of the brain and xray of the hip showed NAD. 2 days ago, he lay down on his right side, and noticed dizziness for 3-5 minutes. He mainly noticed the TV moving back and forth. He had no headache, no vision loss, no spinning sensation or motion sickness. This occurred again yesterday. Review of Systems Constitutional: Negative for fatigue and fever. HENT: Negative for congestion, ear pain, sore throat and trouble swallowing. Eyes: Negative for visual disturbance. Respiratory: Negative for shortness of breath. Cardiovascular: Negative for chest pain and palpitations. Gastrointestinal: Negative for diarrhea, nausea and vomiting. Genitourinary: Negative for dysuria. Neurological: Negative for tremors, syncope, facial asymmetry, speech difficulty, weakness, numbness and headaches. ACTIVE PROBLEM LIST Pure Hypercholesterolemia [...] current facility-administered medications for this visit. Objective Wt 83.7 kg (184 lb 8.4 oz) BMI 26.48 kg/m? 04/24/25 1303 04/24/25 1306 04/24/25 1307 Weight: 83.7 kg (184 lb 8.4 oz) Orthostatic BP: 145/72 137/82 121/69 BP Position: Sitting Standing Supine Orthostatic Pulse: 75 75 76 Physical Exam Constitutional: General: He is not in acute distress. Appearance: He is not ill-appearing. HENT: Head: Atraumatic. Mouth/Throat: Mouth: Mucous membranes are moist. Eyes: Extraocular Movements: Extraocular movements intact. Conjunctiva/sclera: Conjunctivae normal. Pupils: Pupils are equal, round, and reactive to light. Comments: No nystagmus. Cardiovascular: Rate and Rhythm: Normal rate and regular rhythm. Heart sounds: No murmur heard. No gallop. Pulmonary: Breath sounds: Normal breath sounds. Musculoskeletal: Right lower le+ Pitting Edema present. Left lower le+ Pitting Edema present. Neurological: Mental Status: He is alert and oriented to person, place, and time. Cranial Nerves: No cranial nerve deficit, dysarthria or facial asymmetry. Sensory: Sensation is intact. No sensory deficit. Motor: Abnormal muscle tone present. No weakness, tremor or pronator drift. Coordination: Romberg sign positive. Iqaghq-Utcp-Qutclf Test normal. Rapid alternating movements normal. Gait: Gait abnormal (wide base, shuffling, using a hiking stick) and tandem walk abnormal. ASSESSMENT/PLAN: 1. Dizziness - ICD9: 780.4, ICD10: R42 (primary diagnosis) Transient. If recurrent, consider vestibular PT. If worse, seek medical attention. There is no indication these are transient ischemic attacks. 2. Unsteadiness on feet - ICD9: 781.2, ICD10: R26.81 Question of Parkinsonism. 3. At risk for falling - ICD9: V15.88, ICD10: Z91.81 Fall precautions. 4. Essential hypertension - ICD9: 401.9, ICD10: I10 - Controlled - Continue current medications 5. Abnormal gait - ICD9: 781.2, ICD10: R26.9 - We reviewed Neurology consultation report 09/19/2024. He is willing to have the DAYAMI scan to evaluate Parkinsonism. I will (more content not included)... [facility] 04-24-2025 History of Present illness Narrative Subjective Elyse Maloney is a 89 year old male here with spouse. He was in the ER 04/01/25 for a fall at home. He just got up to go to the kitchen while watching TV. He did not recall specifics, nor symptoms around the fall. In the ER his CT scan of the brain and xray of the hip showed NAD. 2 days ago, he lay down on his right side, and noticed dizziness for 3-5 minutes. He mainly noticed the TV moving back and forth. He had no headache, no vision loss, no spinning sensation or motion sickness. This occurred again yesterday. Review of Systems Constitutional: Negative for fatigue and fever. HENT: Negative for congestion, ear pain, sore throat and trouble swallowing. Eyes: Negative for visual disturbance. Respiratory: Negative for shortness of breath. Cardiovascular: Negative for chest pain and palpitations. Gastrointestinal: Negative for diarrhea, nausea and vomiting. Genitourinary: Negative for dysuria. Neurological: Negative for tremors, syncope, facial asymmetry, speech difficulty, weakness, numbness and headaches. ACTIVE PROBLEM LIST Pure Hypercholesterolemia [...] current facility-administered medications for this visit. Objective Wt 83.7 kg (184 lb 8.4 oz) BMI 26.48 kg/m 04/24/25 1303 04/24/25 1306 04/24/25 1307 Weight: 83.7 kg (184 lb 8.4 oz) Orthostatic BP: 145/72 137/82 121/69 BP Position: Sitting Standing Supine Orthostatic Pulse: 75 75 76 Physical Exam Constitutional: General: He is not in acute distress. Appearance: He is not ill-appearing. HENT: Head: Atraumatic. Mouth/Throat: Mouth: Mucous membranes are moist. Eyes: Extraocular Movements: Extraocular movements intact. Conjunctiva/sclera: Conjunctivae normal. Pupils: Pupils are equal, round, and reactive to light. Comments: No nystagmus. Cardiovascular: Rate and Rhythm: Normal rate and regular rhythm. Heart sounds: No murmur heard. No gallop. Pulmonary: Breath sounds: Normal breath sounds. Musculoskeletal: Right lower le+ Pitting Edema present. Left lower le+ Pitting Edema present. Neurological: Mental Status: He is alert and oriented to person, place, and time. Cranial Nerves: No cranial nerve deficit, dysarthria or facial asymmetry. Sensory: Sensation is intact. No sensory deficit. Motor: Abnormal muscle tone present. No weakness, tremor or pronator drift. Coordination: Romberg sign positive. Nlvhqd-Rnbw-Bzmtrp Test normal. Rapid alternating movements normal. Gait: Gait abnormal (wide base, shuffling, using a hiking stick) and tandem walk abnormal. ASSESSMENT/PLAN: 1. Dizziness - ICD9: 780.4, ICD10: R42 (primary diagnosis) Transient. If recurrent, consider vestibular PT. If worse, seek medical attention. There is no indication these are transient ischemic attacks. 2. Unsteadiness on feet - ICD9: 781.2, ICD10: R26.81 Question of Parkinsonism. 3. At risk for falling - ICD9: V15.88, ICD10: Z91.81 Fall precautions. 4. Essential hypertension - ICD9: 401.9, ICD10: I10 - Controlled - Continue current medications 5. Abnormal gait - ICD9: 781.2, ICD10: R26.9 - We reviewed Neurology consultation report 09/19/2024. He is willing to have the DAYAMI scan to evaluate Parkinsonism. I will reach out to Dr. Walker. Ang Vickers MD documented in this encounter [facility] 04-02-2025 Progress note [facility] 04-02-2025 Progress note Note Date/Time April 02, 2025 10:12am [facility] [address] [place] [address] OFFICE VISIT Date of Service: 04/02/25 MR#: [id number] Acct: [id number] Name: ELYSE MALONEY Rep #: [id number] : 1935 Provider: JANA Carrion Age/Sex: 89/M Location: [facility] Status: Signed HPI HPI History of Present Illness Details: This is a pleasant 89-year-old man who presents for a cardiovascular follow-up visit. He had been scheduled for carpal tunnel surgery and was noted to be in atrial fibrillation with a controlled ventricular response rate. He underwent DCcardioversion but did not maintain sinus rhythm. He has been compliant with his medications. He remember his coronary angiogram in April 2020 demonstrated no significant obstructive coronary disease and his echocardiogram demonstrated mildly reduced left ventricular ejection fraction of 50%. He states that he hasbeen following with Neurology from [facility] for balance issues and completed PT. He follows with [facility], Dr. Calixto Blankenship. He denies chest, arm, jaw, or neck discomfort. He denies palpitations. He denies bilateral lower extremity edema. He denies claudication. He denies shortness of breath with activity, shortness of breath at rest, orthopnea, or PND. He denies chronic cough. He denies significant, sudden weight gain. He denies lightheadedness, dizziness, near-syncope, or syncope. He denies blood inurine, blood in stool, or epistaxis. He denies fever with chills. He denies myalgia. He denies fatigue. His exercise level has remained stable. Intake Vital Signs 10/03/24 09:19 04/01/25 22:18 04/02/25 09:33 04/02/25 09:45 Height 5 ft 10 in 5 ft 10 in 5 ft 10 in Weight: 188 lb BMI 26.9 BP 159/80 H 161/79 H Blood Pressure Location Lt brachial Rt brachial Position Sitting Sitting Respiration 16 Pulse 67 67 Pulse Source NIBP NIBP Intake Visit Reasons: 6 M FU Refueler Required: No Accompanied by: Is patient in pain?: No Allergies No Known Allergies Allergy (Verified 04/02/25 09:38) Medications ?Medication ?Instructions ?Recorded ?Confirmed ?Type finasteride 5 mg tablet 5 mg PO DAILY prostate 09/1404/02/25 History multivitamin 1 ea PO DAILY vitamin 04/02/25 History apixaban 5 mg tablet (Eliquis) 5 mg PO BID #60 tabs 04/02/25 Rx tamsulosin 0.4 mg capsule (Flomax) 0.4 mg PO DAILY 05/1804/02/25 History atorvastatin 40 mg tablet 40 mg PO DAILY 03/15/2302/19 History lisinopril 40 mg tablet 40 mg PO DAILY 03/15/2302/19 History vitamins A,C,K-gjiy-pkfpoi 4,296 1 cap PO BID 09/26/23 04/02/25 History mcg-226 mg-90 mg capsule (PreserVision AREDS) furosemide 40 mg tablet 40 mg PO Q OTHER DAY #45 tab s 05/07/24 04/02/25 Rx metoprolol succinate 100 mg 100 mg PO DAILY 10/03/24 0 04/02/25 History tablet,extended release 24 hr Ejection fraction %: 55 Have you fallen in the past year?: Yes (Fell yesterday and was seen in ER on 04/02/25) [facility] Medical History Syncope Longstanding persistent atrial fibrillation Atherosclerotic heart disease of [place] coronary artery without angina pectoris Actinic keratoses [...] in vision ENT ENT: Positive for balance problems (Unsteady, left side weaker with episodes); Negative for dizziness Cardio Chest Pain: No Palpitations: No Edema: Bilateral Resp Respiratory: Negative for SOB with activity, SOB at rest or SOB orthopnea\\SOB lying down GI GI: Negative nausea or heartburn Musc Musc: Positive for balance problems (Unsteady, left side weaker with episodes) Neuro Neuro: Negative for dizziness, lightheadedness, near syncope, syncope or weakness Endo Endo: Negative for fatigue Cardiology Exam Const Appearance: cooperative, healthy appearing, comfortable and no acute distress Nutritional Appearance: well nourished and overweight Orientation: alert, awake and oriented x3 Head Head: normal to inspection Ears: hearing grossly normal bilaterally Nose: external nose normal Face and Sinus: face symmetric Mouth: moist mucous membranes Eyes General: appearance normal, both eyes and all related structures Eyelids: eyelids normal EOM: EOM intact bilaterally Neck Neck: normal visual inspection and no JVD Carotids: normal carotid upstroke Chest Chest inspection: normal inspection of the chest, symmetric chest movement and normal respiratory effort; Negative cough Auscultation: Bilateral: Clear to Auscultation Cardio Rate: Negative regular rate Rhythm: irregularly irregular Heart sounds: S1 normal, S2 normal and murmur; Negative rub or gallop Murmur: Grade 1/6 and DEIDRE loudest LLSB GI GI: normal to inspection Neuro General: patient alert, patient awake, patient oriented x3 and CN's II-XI intactbilaterally Skin Skin: no rashes or lesions noted Extremities Pulses: Normal: Right Posterior Tibial Pulse, Left Posterior Tibial Pulse, RightRadial Pulse and Left Radial Pulse Lower Extremity Edema: +1: Bilateral Psych Psychological: normal affect Supplemental Info Supplemental Information Echocardiogram 11/21/2023: Interpretation Summary Left ventricular systolic function is normal. The left ventricular ejection fraction is 55 %. Normal LV size. There is mild biatrial dilatation. CARDIAC CATHETERIZATION 05/25/2020 CORONARY ANGIOGRAPHY DOMINANCE:? Right Dominant LEFT HEART ASSESSMENT Left Ventricular Ejection Fraction: by LV Gram 55 % Normal LV wall motion Normal Left Ventricular systolic function LEFT MAIN: Mild calcification LEFT ANTERIOR DESCENDING ARTERY: Diffusely diseased up to 60 % MID LAD: Moderate calcification DIAGONAL 1: Proximal - Moderate luminal irregularities up to 50% CIRCUMFLEX ARTERY: Mild luminal irregularities less than 30% RIGHT CORONARY ARTERY: Mild luminal irregularities less than 30% ECHOCARDIOGRAM 05/15/2020 Interpretation Summary Normal LV size. The estimated ejection fraction is 50 %. Left ventricular systolic function is lower limits of normal. The left atrium is mildly enlarged. Mild (1+) eccentric mitral valve insufficiency. Pulmonary artery systolic pressure is 37 mmHg. Stress test from 11/16/2023: Conclusion: Normal pharmacologic myocardial perfusion stress test. Preserved ejection fraction. Assessment and Plan Assessment and Plan (1) Longstanding persistent atrial fibrillation: Status: Chronic Plan: His most recent echocardiogram from 11/21/2023 demonstrated an ejection fraction of 55%, and mild biatrial dilatation. This was reviewed with patient. He appears to be in an irregularly irregular rhythm on exam today. His ventricularheart rate is well-controlled at this time. His [id number] score is 3 (age +2, HTN). He will continue Eliquis 5 mg twice daily, and metoprolol succinate 100 mg daily. He will continue to monitor for any concerning symptoms of atrialfibrillation. (2) Atherosclerotic heart disease of [place] coronary artery without angina pectoris: Status: Chronic Qualifiers: [place] vs. transplanted heart: [place] heart Qualified Code(s): I25.10 -Atherosclerotic heart disease of [place] coronary artery without angina pectoris Plan: His most recent cardiac catheterization from 04/2020 demonstrated 60% diffusely diseased LAD, 50% diagonal disease and 30% left circumflex and right coronary artery disease. His stress test from 11/16/2023 was negative for ischemia. This was reviewed with him. This appears stable today. He will continue current medical therapy and we will continue to monitor. (3) Essential (primary) hypertension: Status: Chronic Plan: His blood pressure is elevated in the office today. He states his blood pressures at home are controlled. At this time, he will continue with his current medical therapy, along with monitoring his blood pressures at home. He will notify our office of readings if it remains consistently elevated. He acknowledges that is very typical to be elevated in an office/healthcare setting. (4) Hyperlipidemia: Status: Chronic Qualifiers: Hyperlipidemia type: unspecified Qualified Code(s): E78.5 - Hyperlipidemia, unspecified Plan: He states that [facility] monitors this. He will continue atorvastatin 40 mg daily, along with aggressive risk factor lifestyle modifications. Lipid panel from March 12, 2025 showed total cholesterol: 108, LDL: 53, HDL: 37, anticus rate: 62. Hemoglobin A1c on 03/11/2025 was noted to be 5.8%. Plan Details Additional Comments: Thank you for allowing us to participate in the patients plan of care, if you have any questions please do not hesitate to call. Plan was reviewed with patient/family member along with red flag symptoms. Understanding was acknowledged. Questions were answered to apparent satisfaction. This note was generated using a voice recognition system and there may be incorrect words, spelling or punctuation that were not noted when reviewing the office note prior to saving. Portions of this documentation were copied and pasted from previous office visitnotes to provide a cohesive continuity of the history. The note has been reviewed, edited, and updated, as necessary. 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 transplanted heart: [place] heart Essential (primary) hypertension I10 Hyperlipidemia, unspecified hyperlipidemia type E78.5 Hyperlipidemia type: unspecified Coding Level of Care Code Off vis,est,level 4 Diagnoses Longstanding persistent atrial fibrillation I48.11 Atherosclerosis of [place] coronary artery of [place] heart without angina pectoris I25.10 [place] vs. transplanted heart: [place] heart Essential (primary) hypertension I10 Hyperlipidemia, unspecified hyperlipidemia type E78.5 Hyperlipidemia type: unspecified Clinical Quality Measures Falls Risk Screening/Assistive Devices Have you fallen in the past year?: Yes (Fell yesterday and was seen in ER on 04/02/25) Cardiac Ejection fraction %: 55 04/02/25 1012 <Electronically signed by Aguilar Carrion N P SOFTWARE TECHNICIAN-C> Date _ Aguilar Crowder Sheyla SOFTWARE TECHNICIAN SOFTWARE TECHNICIAN-C Cosigner Signature: Date (if applicable) CC: Dr. Ang Vickers MD ~ [facility][1] Services Work Phone: [phone] Radiology Diagnostic study note [facility] Imaging Services [address] [place], [place] [address] HIP, UNI W/ Pelvis 2-3 Views MR#: [id number] Acct: [id number] Name: ELYSE MALONEY Rep #: [id number] : 1935 89 From: Ilia Bee MD PCP: Dr. Ang Vickers MD Status: R ER Study:HIP, UNI W/ Pelvis 2-3 Views Date of Ex am: 04/01/25 Exam# [id number] Ordering Dr: Mira Murry DO PROCEDURE: HIP, UNI W/ PELVIS 2-3 VIEWS 04/01/2025 REASON FOR EXAM: FALL TECHNIQUE: HIP, UNI W/ PELVIS 2-3 VIEWS COMPARISON: None. FINDINGS: No evidence of acute fracture or dislocation. Left hip hemiarthroplasty appearsintact without evidence for loosening or failure. Moderate degenerative arthrosis of the right hip joint. Degenerative changes of the lower lumbosacral spine. Atherosclerotic vascular calcifications. RAD/HIP, UNI W/ Pelvis 2-3 Views IMPRESSION: 1. No evidence of acute fracture or dislocation. 2. Left hip arthroplasty with intact hardware. 3. 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 Reading Location: [id number] CC: Dr. Ang Vickers MD; Donald Murry DO ~ General Activities Therapist: Signed [facility]08-05-2025 Radiology Diagnostic study note [facility] Imaging Services [address] [place], [place] [address] Brain/Head without Contrast MR#: [id number] Acct: [id number] Name: ELYSE MALONEY Rep #: [id number] : 1935 M 89 From: Livia Robertson MD PCP: Dr. Ang Vickers MD Status: R EG ER Study:Brain/Head without Contrast Date of Exa m: 04/01/25 Exam# [id number] Ordering Dr: Mira Murry DO PROCEDURE: BRAIN/HEAD WITHOUT CONTRAST 04/01/2025 REASON FOR EXAM: FALL TECHNIQUE: BRAIN/HEAD WITHOUT CONTRAST Coronal and Sagittal reconstruction series were provided. One or more dose reduction techniques were used (e.g., Automated exposure control, adjustment of the mA and/or kV according to patient size, use of iterative reconstruction technique. RADIATION DOSE SUMMARY: CTDlvol: 45 mGy DLP: 864 mGycm COMPARISON: 06/05/2021 FINDINGS: Diffuse atrophy. Arterial calcifications. Mild white matter change. No acute abnormal brain densities. No intracranial hemorrhage. No hydrocephalus or midline shift. Bilateral lens extraction. Left-sided scleral banding. No acute scalp or skull pathology. Mild sinus mucosal thickening. CT/Brain/Head without Contrast IMPRESSION: No acute findings Reading Location: [place] [address] CC: Dr. Ang Vickers MD; Donald Murry DO ~ General Activities Therapist: Signed [facility]05-15-2025 Instructions* Patient Instructions* Ang Vickers MD - 01/09/2025 10:38 AM EDT We discussed the discoloration and rash on your face: - This appears to be some type of dermatitis or skin irritation. It does not show signs of infection. - Please apply an twbi-eak-egtrauv topical corticosteroid cream to the affected area as directed onthe product label. - Avoid scratching the area to prevent further irritation. - The discoloration should fade over time. If it worsens, spreads significantly, or develops new symptoms such as pain, swelling, or itching, please contact our office for further evaluation. documented in this encounterPrem[facility]25 NoteHNO ID: [id number] Author: ANG VICKERS MD Service: ? Author Type: Physician Type: Progress Notes Filed: 01/09/2025 10:44 Note Text: This note was created using WorldOneriter. Subjective Patient presents with: Derm Problem Elyse Maloney is a 89 year old male. Recording using [employer] software for draft documentation of the visit was discussed with the patient/authorized authorization representative; all questions welcomed and answered. Patient/authorized authorization representative agreed to proceed Elyse is a [...] HCC. Return if not better. Ang Vickers [facility]05-15-2025 History of Present illness Narrative* Ang Vickers MD - 01/09/2025 10:32 AM EDT This note was created using NoteWriter. Subjective Patient presents with: Derm Problem Elyse Maloney is a 89 year old male. Recording using [employer] software for draft documentation of the visit was discussed with the patient/authorized authorization representative; all questions welcomed and answered. Patient/authorized authorization representative agreed to proceed Elyse is a [...] raised, non tender, no warmth, 1 x 1.5cm on right pre auricular/mandibular angle area. Right Ear: External ear normal. Musculoskeletal: Cervical back: No tenderness. Lymphadenopathy: Cervical: No cervical adenopathy. Assessment and Plan 1. Rash - ICD9: 782.1, ICD10: R21 Non specific, probably resolving. Observe. Try OTC HCC. Return if not better. Ang Vickers MD documented in this encounterPremier [facility]05-15-2025 Telephone encounter Note * Telephone Encounter - Renetta Gonzalez RN - 01/09/2025 9:21 AM EDT Protocol recommends see provider in 4 hours. Pt scheduled with Dr Vickers today at 1020. Care plan reviewed with patient. Patient voices understanding. Advised patient that if symptoms get worse fortino evaluated in Urgent Care or ER. Reason [...] N/A Protocols used: Rash or Redness - Hnzxqskya-QLFDG-VR [facility]05-15-2025 Miscellaneous Notes* Telephone Encounter - Renetta Gonzalez RN - 01/09/2025 9:21 AM EDT Protocol recommends see provider in 4 hours. Pt scheduled with Dr Vickers today at 1020. Care plan reviewed with patient. Patient voices understanding. Advised patient that if symptoms get worse fortino evaluated in Urgent Care or ER. Reason [...] N/A Protocols used: Rash or Redness - Lioqaldpx-DWRWD-NB documented in this encounterPremier Health [facility]03-28-2025 Instructions* Patient Instructions* Ang Vickers MD - 11/22/2024 2:50 PM [...] review all the medicines you take, even mpgv-tty-zaqtuet medicines. As you get older, the way medicines work in your body can change. Some medicines, or combinations of medicines, can make you sleepy or dizzy andcan cause you to fall. 3. Have your [...] have certain medical conditions. documented in this encounterPrem[facility]03-28-2025 NoteHNO ID: [id number] Author: ANG VICKERS MD Service: ? Author Type: Physician Type: Progress Notes Filed: 11/22/2024 15:31 Note Text: This note was created using NoteWriter. Subjective Elyse Maloney is a 88 year old male. He was doing reasonably well at this time. No falls were noted. He was referred to neurology for possible Parkinsonism and gait abnormality. His gait abnormality was felt to be multifactorial. He was seeing a spine surgeon at [facility] for spinal stenosis, and conservative management was [...] (Temporal) Resp 14 Ht 177.8 cm (5' 10") Wt 88 kg (194 lb 0.1 oz) [...] ICD10: I10 - Controlled 4. Atherosclerosis of [place] coronary artery of [place] heart without angina pectoris - ICD9: 414.01, ICD10: I25.10 - Asymptomatic. 5. Abnormal gait - ICD9: 781.2, ICD10: R26.9 - Fall prec (more content not included)...[facility]03-28-2025 History of Present illness Narrative* Ang Vickers MD - 11/22/2024 2:41 PM EDT This note was created using Nusirtter. Subjective Elyse Maloney is a 88 year old male. He was doing reasonably well at this time. No falls were noted. He was referred to neurology for possible Parkinsonism and gait abnormality. His gait abnormalitywas felt to be multifactorial. He was seeing a spine surgeon at [facility] for spinal stenosis,and conservative management was recommended. His hypertension, hyperlipidemia, [...] (Temporal) Resp 14 Ht 177.8 cm (5' 10") Wt 88 kg (194 lb 0.1 oz) [...] ICD10: I10 - Controlled 4. Atherosclerosis of [place] coronary artery of [place] heart without angina pectoris - ICD9: 414.01, ICD10: I25.10 - Asymptomatic. 5. Abnormal gait - ICD9: 781.2, ICD10: R26.9 - Fall precautions. 6. Impaired fasting glucose - ICD9: 790.21, ICD10: R73.01 - Monitored. 7. Pure Hypercholesterolemia - ICD9: 272.0, ICD10: E78.00 - Controlled. [facility] Ang Vickers MD * Ang Vickers MD - 11/22/2024 2:33 PM EDT Images from the original note were [...] MD as PCP - General Daniela Muir APRN.MOLD HOLDER as Supervisor [place] (Internal Medicine) Bruce Walker MD (Neurology) Agusto Marsh MD (Neurology) Outside specialists seen: Dr. Newton Palmer, cardiology. Dr. Carlos Soto, dermatology. Dr. Dino Liriano, ophthalmology. Dr. Eneida Wellington, Pulmonary and Sleep Medicine. Dr. Guero Christine, Spine Surgery [facility] KHALIDA Madrigal-MOLD HOLDER ([facility]) [employer] for CPAP supplies. Medical/Family history review Reviewed [...] (Temporal) Resp 14 Ht 177.8 cm (5' 10") Wt 88kg (194 lb 0.1 oz) SpO2 99% BMI 27.84 kg/m Vision Screening: Follows with optometry/ophthalmology Assessment/Plan Medicare annual wellness visit, subsequent (Z00.00) - Counseled on healthy diet and regular exercise - Fall avoidance information provided - Personalized prevention plan provided - Discussed need for and benefit of weight loss. BMI 27.84 kg/(m^2) documented in this encounterPremier [facility]03-28-2025 NoteHNO ID: [id number] Author: ANG VICKERS MD Service: ? Author [...] MD as PCP - General Daniela Muir APRN.CAITLIN as Supervisor [place] (Internal Medicine) Bruce Walker MD (Neurology) Agusto Marsh MD (Neurology) Outside specialists seen: Dr. Newton Palmer, cardiology. Dr. Carlos Soto, dermatology. Dr. Dino Liriano, ophthalmology. Dr. Eneida Wellington, Pulmonary and Sleep Medicine. Dr. Guero Christine, [facility] tr[facility]CAITLIN ([facility]) Emily Finn for CPAP supplies. Medical/Family history [...] (Temporal) Resp 14 Ht 177.8 cm (5' 10") Wt 88 kg (194 lb 0.1 oz) SpO2 99% BMI 27.84 kg/m? Vision Screening: Follows with optometry/ophthalmology Assessment/Plan Medicare annual wellness visit, subsequent (Z00.00) - Counseled on healthy diet and regular exercise - Fall avoidance information provided - Personalized prevention plan provided - Discussed need for and benefit of weight loss. BMI 27.84 kg/(m2)[facility]01-23-2025 Instructions* Patient Instructions* Bruce Walker MD - 09/19/2024 9:45 AM [...] neuropathy It is possible to do a "DATscan" which is ~95% accurate at ruling out Parkinson Disease. We can consider this if your other providers would find this information useful. I will send my final note to Dr. Christine at [facility] [phone], Orthopaedic Spine surgery. For now, plan to follow up in 12 months. Or, equivalently, you could follow with Dr. Marsh. Patient's perception of importance for healthcare provider to let them know of research trials for which they may be eligible? Very Important No follow-ups on file. If there are any concerns before your next visit, please call or you can send a message through dloHaiti. You can also now schedule and select appointments through dloHaiti. Bruce Walker MD documented in this encounterPrem[facility]01-23-2025 History of Present illness Narrative* Bruce Walker MD - 09/19/2024 8:30 AM EST [facility] - Follow Up Visit Primary Movement Disorders Neurologist: Bruce Walker MD Primary Movement Disorders JOANNA: No referring provider defined for this encounter. Ang Vickers MD [address] [facility] [address] Dear : I had the pleasure of [...] PA Marsha Arias on 05/22/[address] Marsh as well. Patient is 88 yo with PMH significant for A-fib on Eliquis, hypertension, hyperlipidemia, CAD, ISAAC,orthostatic dizziness, EMG with evidence of lumbar radiculopathy, [...] no constipation. He was in PT at [facility] Denies neuropathy sensations in his feet. Denies any pain. He has an ache in his lower back. He hasfound himself leaning slightly forward when walking. When [...] MRI lumbar spine from December 2023 reviewed, thereis stenosis at multiple levels, moderate to severe [...] distal to the wrist (ie: carpal tunnel syndrome),mild in degree electrically. 5. In the setting [...] Row Office Visit from 09/19/2024 in [facility] Office Visit from 06/28/2024 in [facility] [...] Objective Vital Signs: Ht 177.8 cm (5' 10") Wt 83.9 kg (185 lb) SpO2 97% BMI 26.54 kg/m Orthostatic Vitals: Sitting: BP 156/84 Pulse 63 Standing: BP 160/72 Pulse 69 Weight: 83.9 kg (185 lb) Height: 177.8 cm (5' 10") No LMP for male patient. Body mass index is 26.54 kg/m . General Physical Examination: General: Awake, alert, interactive, no acute distress, good nutritional status, normal development,well-kept Heart: RRR normal S1S2 no MRG no [...] Left visual acuity: Counts fingers. Right normal visualfield. Left normal visual field. CN III, IV, : Extraocular movements intact bilaterally. No nystagmus. Hypometric saccades. Normalsmooth pursuit. Normal lids and orbits bilaterally. Pupils [...] at ankles. Vibration abnormality: 10% at toes 100%at knees. Reflexes Right Left Brachioradialis 2+ 2+ Biceps 2+ 2+ Triceps 2+ 2+ Patellar 3+ 3+ Achilles 0 0 Right Plantar: equivocal Left Plantar: equivocal Right pathological reflexes: Trenton's absent. Tromner absent. Suprapatellar present. Crossed adductor present. Left pathological reflexes: Trenton's absent. Tromner absent. Suprapatellar present. Crossed adductor present. Coordination Right: Yljoyh-jf-dlwx normal. Kxzr-kt-nvhe normal.Left: Hjauko-yc-pngb normal. Oajr-wf-lxvp normal. Slightly choppy H2S but stays on [...] the tapping movements, b) mild slowing, c) theamplitude decrements midway in the task. Leg Agility [...] may need more than one attempt, or mayneed to move forward in the chair to [...] for parkinsonism but cannot rule out a contributionof other issues like spine or arthritis to the parkinsonism (in other words, it could be pseudo-parkinsonism). We discussed DATscan as an option to clarify whether there is neurodegenerative parkinsonism. Or, could re-examine him in a year to see if anything has progressed/changed. I will send my final note to Dr. Christine at [facility] [phone], Orthopaedic Spine surgery. The following are the [...] neuropathy It is possible to do a "DATscan" which is ~95% accurate at ruling out Parkinson Disease. We can consider this if your other providers would find this useful. I will send my final note to Dr. Christine at [facility] [phone], Orthopaedic Spine surgery. For now, plan to follow up in 12 months. Or, equivalently, you could follow with Dr. Marsh. Patient's perception of importance for healthcare provider to let them know of research trials for which they may be eligible? Very Important Updated Parkinson's Medication Schedule: Medications Level of service : 42591 (40-68 min). Time spent 61 min on the day of service, which included preparing to see the patient, kppg-yz-trck patient care, completing clinical documentation, obtaining and/or [...] Sincerely, Bruce Walker MD documented in this encounterPremier Health [facility]01-23-2025 NoteHNO ID: [id number] Author: BRUCE WALKER MD Service: ? Author Type: Physician Type: Progress Notes Filed: 04/25/2025 10:06 Note Text: [facility] - Follow Up Visit Primary Movement Disorders Neurologist: Bruce Walker MD Primary Movement Disorders JOANNA: No referring provider defined for this encounter. Ang Vickers MD [address] [facility] [address] Dear : I had the pleasure of [...] PA Marsha Arias on 05/22/[address] Marsh as well. Patient is 88 yo with [...] no constipation. He was in PT at [facility] Denies neuropathy sensations in his feet. Denies [...] Row Office Visit from 09/19/2024 in [facility] Office Visit from 06/28/2024 in [facility] [...] [facility] medication[facility] CPAP Initia (more content not included)...[facility]12-05-2024 Telephone encounter Note* Telephone Encounter - Erika Maria - 08/01/2024 12:11 PM EST Referral source: Guero Christine MD ([facility]) Reason for visit: gait issues, opinion on Parkinson's disease External records: Sent with referral Triage: Not required Financial clearance: Not required to schedule Patient already completed a recent movement disorders consult with Dr. Agusto Marsh. [facility]12-05-2024 Miscellaneous Notes* Telephone Encounter - Erika Maria - 08/01/2024 12:11 PM EST Referral source: Guero Christine MD ([facility]) Reason for visit: gait issues, opinion on Parkinson's disease External records: Sent with referral Triage: Not required Financial clearance: Not required to schedule Patient already completed a recent movement disorders consult with Dr. Agusto Marsh. documented in this encounterPremier Health [facility]11-11-2024 Telephone encounter Note * Telephone Encounter - Areli Livingston PSS - 07/08/2024 4:38 PM EST CD READY FOR MINIATURE SET CONSTRUCTOR AT [facility] [place] RAD[facility] Pt is aware [facility]11-11-2024 Miscellaneous Notes* Telephone Encounter - Areli Livingston PSS - 07/08/2024 4:38 PM EST CD READY FOR MINIATURE SET CONSTRUCTOR AT [facility] [place] [facility] Pt is aware * Telephone Encounter - Raheem Oliver LPN - 07/08/2024 4:23 PM EST calling to request a disk for pt's MRI done on 01-24-24. Pt has apt with Dr. Guero Christine Orthopedic surgeon on 07-10-24 at [facility]. Please advise when ready for bean picker. Raheem Oliver LPN documented in this encounterPremier Health [facility]11-11-2024 Telephone encounter Note * Telephone Encounter - Raheem Oliver LPN - 07/08/2024 4:23 PM EST calling to request a disk for pt's MRI done on 01-24-24. Pt has apt with Dr. Guero Christine Orthopedic surgeon on 07-10-24 at [facility]. Please advise when ready for bean picker. Raheem Oliver LPN [facility]11-01-2024 Instructions* Patient Instructions* Agusto Marsh MD - 06/28/2024 9:18 AM EDT I think things are primarily from the lumbar stenosis. There are some subtle signs of Parkinson's but nothing definitive. I'll take a look at you in a year to see if it has evolved at all. documented in this encounterPremier [facility]11-01-[facility] History of Present illness Narrative* Agusto Marsh MD - 06/28/2024 8:52 AM EDT NEW PATIENT EVALUATION Subjective HPI Elyse Maloney [...] for the past 6-12 months has lost hissmell and taste, though he notes this is has been present for several years. Recently she was cooking ribs in the house all day and he couldn't smell them. His hands are a little bit numb and not as strong. No problems with manual dexterity. Doesn't notice numbness in his feet. No constipation. No dream enactment, uses CPAP for ISAAC. Sleeps from [id number] but then at night might fall asleep [...] HPI. Otherwise a 10-point ROS was completed andwas negative. ALLERGIES No Active Allergies Past Medical [...] lb 0.1 oz) Height: 177.8 cm (5' 10") Physical Examination General Appearance: Well appearing, alert, [...] is intact. Facial activation is symmetric. Hearing isintact to conversation. There is no hypomimia. There [...] 2+ bilaterally. Patellar reflex minimal / possibly surgicallyabsent. Achilles 0 bilaterally. Coordination: Finger to nose [...] 4. 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 5. In the settingof #1 and 2 above, an axonal large [...] return to see me in 12 months. Agusto Marsh MD [facility] Neurology documented in this encounterPrem[facility]09-25-2024 Instructions* Patient Instructions* Marsha Arias PA-C - 05/22/2024 4:08 PM EDT Consult to movement (Dr. Marsh) Use a walker to get around, avoid steps. Follow up after movement consult documented in this encounterPremier Health [facility]09-25-2024 History of Present illness Narrative* Marsha Arias PA-C - 05/22/2024 3:16 PM EDT ESTABLISHED PATIENT VISIT Last visit: 01/26/24 ASSESSMENT/PLAN: [...] questions were answered. Patient follow-up in 3 monthsor sooner should any symptoms change or worsen. [...] PCP would like referral [facility]. Patient presents with his [...] at that time. He has not fallen since,but does have difficulty His feet which is very concerning to his . She is concerned that he isgoing to fall again, notes he goes up and down stairs frequently and she does not feel comfortable with him doing this. Uses a walking cane to get around the house, does have a walker but does not like to use it. Did go to physical therapy and felt his legs improved in strength but was unsure if itwas helpful for his gait. Of note, still compliant with B12 supplementation. At Reports primary concern today is Parkinson's disease. Saw primary care and they are concerned that gait abnormality was secondary to parkinsonism. Patient without any history of tremor, no REM sleep disorder, no constipation, no positional lightheadedness orthostatic symptoms, no family history of p arkinsonism. No micrographia, hallucinations, no voice change. Patient [...] disturbance, mood disorder and recent psychosocial stressors. HEMATOLOGIC/LYMPHATIC/IMMUNOLOGIC:Negative for prolonged bleeding, bruising easily or swollen [...] dysarthria; comprehension, naming, repetition intact. Short and intermediate memory intact. CN: PERRL, EOMI and without [...] toes and waving of the left hand, howevernormal with tapping the entire left foot and [...] missing a step at a baseball game andthe second was tripping while walking through his daughters house. Walks with a walking stick at home, is very concerned because he goes up and down the stairs multiple times a day and does not feel safe. Etiology for gait abnormality is unclear, possibly multifactoral. Lumbar stenosis likely contributing, there was some concern for neuropathy, but this was unable to be definitively ruled inor out on EMG testing. Patient's very concerned [...] which included preparing to see the patient, dxga-le-oglg patient care, completing clinical documentation, obtaining and/or reviewing separately obtained history, performing a medically appropriate examination, counseling and educating the pat ient/family/caregiver, and ordering medications, tests, or procedures. This document has been created with the use of voice recognition technology. It may contain inaccuracies: (e.g. misspellings, inaccurate syntax or word sense) that have escaped review. documented in this encounterPremier Health [facility]09-23-2024 History of Present illness Narrative* Ang Vickers MD - 05/20/2024 1:08 PM EDT This note was created using WorldOneriter. Subjective Elyse Maloney is a 88 year old male. He continued to have gait and stance unsteadiness and falls. He had no dizziness. His [employer] increased metoprolol and furosemide 2 months ago, [...] Cuff Size: Large Adult) Pulse 72 Temp 36C (96.8 F) (Temporal) Resp 12 Wt 85.6 [...] Continue per cardiology. Medication list updated per [place] information. - FUROSEMIDE 40 MG every other day. 6. Atherosclerosis of [place] coronary artery of [place] heart without angina pectoris - ICD9: 414.01, ICD10: I25.10 Medication list updated. - METOPROLOL SUCCINATE ER 100 MG TABLET,EXTENDED RELEASE 24 HR 7. Screening for depression - ICD9: V79.0, ICD10: Z13.31 - DEPRESSION SCREENING 8. Encounter for screening examination for other mental health and behavioral disorders - ICD9: V79.8, ICD10: Z13.39 - ANXIETY SCREENING Ang Vickers MD documented in this encounterPremier Health [facility]08-09-2024 History of Present illness Narrative* Andres Dominick, PT - 04/05/2024 9:15 AM EDT Images from the original note were not included. Episode Visit Count: 6 Therapist That Will Accept/Oversee The Plan Of Care: Dominick Campos Start of Care Date: 02/07/24 Onset Date: 08/28/23 Plan of Care Certification Date: 02/07/24 Next Certification Due Date: 04/08/24 REHABILITATION AND SPORTS THERAPY PHYSICAL THERAPY DISCONTINUANCE OF CARE PLAN OF CARE UPDATE: Assessment: Elyse Eliane Maloney is discontinued from Physical Therapy services due to goal achievement..Patient was seen for 6 visits from Start of Care Date: 02/07/24 to 04/05/2024 and treatment included:Therapeutic exercise and Neuromuscular re-education. Goals updated on [...] tandem to reflect decreased fall risk. Met [place] in home exercise program including cardiovascular exercise. [...] Stop Time : 857 Dominick Campos PT * Dominick Campos PT - 04/03/2024 8:49 AM EDT Program_ID:[id number] Access Code: [email or web address] URL: [email or web address] Date: 04-03-2024 Prepared By: Dominick Campos Program [...] sets - 10 reps documented in this encounterPremier [facility]08-02-2024 History of Present illness Narrative* Dominick Campos, PT - 03/29/2024 8:02 AM EDT Episode Visit Count: 5 Therapist That Will [...] continue to benefit from ongoing skilled physical therapyto progress toward set goals. PLAN FOR NEXT [...] 838 JASPAL Kilpatrick PT documented in this encounterPremier Health [facility]07-24-2024 History of Present illness Narrative* Dominick Campos PT - 03/20/2024 1:36 PM EDT Episode Visit Count: 4 Therapist That Will [...] taps 5: Step over forward and sideways 6" hurdles 4 passes (cuing for hip flexion [...] 858 Dominick Campos PT documented in this encounterPremier Health [facility]07-17-2024 History of Present illness Narrative* Dominick Campos, PT - 03/13/2024 9:07 AM EDT Episode Visit Count: 3 Therapist That Will [...] continue to benefit from ongoing skilled physical therapyto progress toward set goals. PLAN FOR NEXT [...] Stop Time : 857 Dominick Campos PT documented in this encounterPremier Health [facility]07-10-2024 History of Present illness Narrative* Dominick Campos PT - 03/06/2024 12:14 PM EDT Episode Visit Count: 2 Therapist That Will [...] injury. He caught his foot on a tableleg and fell down. He has bene using [...] 1024 Dominick Campos PT documented in this encounterPremier Health [facility]06-12-2024 History of Present illness Narrative* Dominick Campos PT - 02/07/2024 4:54 PM EDT Images from the original note were [...] established for this plan of care as notedbelow. Assessment Fall Risk : Active low risk [...] and tandem to reflect decreased fall risk. [place] in home exercise program including cardiovascular exercise. Planned Interventions, Frequency, and Duration: Current Frequency: 1x/week Duration: 8 weeks Total Number of Visits Planned: 8 Planned Treatment Interventions: Therapeutic exercise (50339), Neuromuscular re- education (58029), Manual therapy (93303), Therapeutic activities (13078), Self- alf management (28806), Gait Training (11993), Patient/Family/Caregiver Education, Body Mechanics Training PLAN FOR [...] back. His chief complaint today is feeling "dizzy" which he describes as feeling off balance and unsteady on his feet. Denies false sensation of movement. Walking or standing for longer periods of time brings on symptoms. 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 L4-S1 centra l canal stenosis Functional Limitations: standing, walking, heavy [...] 939 Physical Therapy Evaluation Dominick Campos PT * Dominick Campos PT - 02/07/2024 9:37 AM EDT Program_ID:[id number] Access Code: [email or web address] URL: [email or web address] Date: 02-07-2024 Prepared By: Dominick Campos Program [...] sets - 10 reps documented in this encounterPremier [facility]05-31-2024 Instructions* Patient Instructions* Marsha Arias PA-C - 01/26/2024 1:44 PM EDT Consult to physical therapy Continue with B12 supplementation Follow up in 3 months documented in this encounterPrem[facility]05-31-2024 History of Present illness Narrative* Marsha Arias PA-C - 01/26/2024 12:40 PM EDT ESTABLISHED PATIENT VISIT Last visit: 12/05/23 Assessment & Plan: Elyse Maloney is a 88 year old right-handed male with a history of A-fib on Eliquis, hypertension,hyperlipidemia, CAD, ISAAC. His examination demonstrates sensory changes in a stocking glove fashion with absent Achilles reflex and diminished patellar reflex. Weakness on the left lower extremity andminimally on the left upper extremity. Some left-sided drooping of the eyelid, but otherwise facialmuscles are intact. Significantly hard of hearing. Patient [...] extremity to evaluate for any signs of neurop athy or other neuromuscular etiology. Will obtain basic [...] encouraged to supplement. 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 Patient with [...] disturbance, mood disorder and recent psychosocial stressors. HEMATOLOGIC/LYMPHATIC/IMMUNOLOGIC:Negative for prolonged bleeding, bruising easily or swollen [...] of the iliac crest and assume there are5 lumbar-type vertebrae. EMG 01/19/24 Study Interpretation Electrodiagnostic [...] distal to the wrist (ie: carpal tunnel syndrome),mild in degree electrically. 5. In the setting [...] Decreased temperature sensation to the left leg comparedto the right but intact in the upper [...] questions were answered. Patient follow-up in 3 monthsor sooner should any symptoms change or worsen. Marsha Arias PA-C I spent a total of 45 minutes on the date of the service which included preparing to see the patient, bvuc-sq-kptu patient care, completing clinical documentation, obtaining and/or reviewing separately obtained history, performing a medically appropriate examination, counseling and educating the pat ient/family/caregiver, and ordering medications, tests, or procedures. This document has been created with the use of voice recognition technology. It may contain inaccuracies: (e.g. misspellings, inaccurate syntax or word sense) that have escaped review. documented in this encounterPrem[facility]05-30-2024 Telephone encounter Note * Telephone Encounter - Mali Oliver LPN - 01/25/2024 3:52 PM EDT Phone all placed to patient advised of provider results, recommendations. Patient became upset requested an office visit with Lon Arias and Dr. Vickers at the same time to discuss testing and results, new referrals. Advised that we are unable to schedule with two providers at the same time. Office visit scheduled with Lon Arias on 01/26/2024 in [place] patient reported he didn't mind travel, agreeable to further discuss MRI results with provider, declined to schedule with spine specialistat this time. Patient verbalized understanding, agreed with plan of care. [facility]05-30-2024 Miscellaneous Notes* Telephone Encounter - Mali Oliver LPN - 01/25/2024 3:52 PM EDT Phone all placed to patient advised of provider results, recommendations. Patient became upset requested an office visit with Lon Arias and Dr. Vickers at the same time to discuss testing and results, new referrals. Advised that we are unable to schedule with two providers at the same time. Office visit scheduled with Lon Arias on 01/26/2024 in [place] patient reported he didn't mind travel, agreeable to further discuss MRI results with provider, declined to schedule with spine specialistat this time. Patient verbalized understanding, agreed with plan of care. * Telephone Encounter - Marsha Arias PA-C - 01/25/2024 9:40 AM EDT MRI of the cervical spine and lumbar spine show significant degeneration that may be causing gait issues. Will need to see a spinal specialist, referral placed. Marsha Arias PA-C documented in this encounterPrem[facility] Health [facility]05-30-2024 Telephone encounter Note * Telephone Encounter - Marsha Arias PA-C - 01/25/2024 9:40 AM EDT MRI of the cervical spine and lumbar spine show significant degeneration that may be causing gait issues. Will need to see a spinal specialist, referral placed. Marsha Arias PA-C [facility]05-29-2024 History of Present illness Narrative* Emily Pressley RT(R) - 01/24/2024 1:40 PM EDT Radiology Service Progress Note PATIENT NAME: [...] PATIENT PRESENTS WITH AN IMPLANTABLE OR ATTACHED HAND SCRAPER: No RADIOLOGY DEPARTMENT: MR; Exam(s) Completed: Spine: Cervical spine and Lumbar spine PERIPHERAL IV DATA: Not applicable SIGNED BY: RT Sade(R) January 24, 2024 1:48 PM documented in this encounterPremier Health [facility]05-28-2024 History of Present illness Narrative* Ang Vickers MD - 01/23/2024 10:40 AM EDT This note was created using NoteWriter. Subjective Elyse Maloney is a 88 year old male was here for follow up. Symptoms of orthostatic dizziness, loss of hand coordination, unsteady gati, and blank stares were stable. He resisted the use of assistive devices for preventing falls. He's seen neurology [facility] and initial concern was neuropathy. Parkinsonism was [...] MRI. Ang Vickers MD documented in this encounterPremier Health [facility]05-24-2024 Telephone encounter Note * Telephone Encounter - Jennifer Wiseman RN - 01/19/2024 3:00 PM EDT Pt returned call and given provider's message below with verbalized understanding. Pt asking if provider wants him to schedule f/u appt? Transferred to [facility] to schedule MRI. [facility]05-24-2024 Miscellaneous Notes* Telephone Encounter - Jennifer Wiseman RN - 01/19/2024 3:00 PM EDT Pt returned call and given provider's message below with verbalized understanding. Pt asking if provider wants him to schedule f/u appt? Transferred to [facility]ss to schedule MRI. * Telephone Encounter - Lisa Liang LPN - 01/19/2024 2:17 PM EDT TC to pt with no answer. Left VM to return call. Lisa Liang LPN * Telephone Encounter - Marsha Arias PA-C - 01/19/2024 11:33 AM EDT EMG of the upper and lower extremity show likely degeneration of the spine contributing to patient's symptoms. Would like patient to have MRI of the cervical and lumbar spine performed. Marsha Arias PA-C documented in this encounterPrem[facility]05-24-2024 Telephone encounter Note * Telephone Encounter - Lisa Liang LPN - 01/19/2024 2:17 PM EDT TC to pt with no answer. Left VM to return call. Lisa Liang LPN [facility]05-24-2024 Telephone encounter Note* Telephone Encounter - Marsha Arias PA-C - 01/19/2024 11:33 AM EDT EMG of the upper and lower extremity show likely degeneration of the spine contributing to patient's symptoms. Would like patient to have MRI of the cervical and lumbar spine performed. Marsha Arias PA-C [facility]05-24-2024 History of Present illness Narrative* Alonzo Frias DO - 01/19/2024 9:41 AM EDT UNIVERSAL PROTOCOL / SAFETY CHECKLIST Procedure to [...] completed when applicable. Mayi Aguirre EMG Tech Alonzo Frias DO documented in this encounterPremier Health [facility]04-22-2024 History of Present illness Narrative* Emily Pressley RT(R) - 12/18/2023 11:20 AM EDT Radiology Service Progress Note PATIENT [...] PATIENT PRESENTS WITH AN IMPLANTABLE OR ATTACHED HAND SCRAPER: No RADIOLOGY DEPARTMENT: MR; Exam(s) Completed: Head: Routine Brain PERIPHERAL IV DATA: Not applicable SIGNED BY: RT Sade(R) December 18, 2023 11:27 AM documented in this encounterPremier Health [facility]04-09-2024 Miscellaneous Notes* Telephone Encounter - Mayi Aguirre - 12/05/2023 1:52 PM EDT Spoke with Elyse on 12/05/23 in regards [...] instructions. Mayi EMG Tech documented in this encounterPrem[facility] Health [facility]04-09-2024 Instructions* Patient Instructions* Marsha Arias PA-C - 12/05/2023 7:45 AM EDT Laboratory studies MRI of the brain EMG of the leg and arm Start alpha lipoic acid 600mg Follow up after testing documented in this encounterPrem[facility]04-09-2024 History of Present illness Narrative* Marsha Arias PA-C - 12/05/2023 7:07 AM EDT Images from the original note were not included. Neurology Outpatient Clinic Date: December 05, 2023 Patient Name: Elyse Maloney Referring physician: Ang Vickers [address] [id number] Consult requested for dizziness by Dr. Vickers. Recommendations will be communicated via shared medical record or US mail. Primary physician: Ang Vickers [address] [phone] Reason for Evaluation: Dizziness Subjective HPI Elyse Maloney is a 88 year old right-handed male with history of A fib, HTN, HLD, ISAAC, CAD who presents for evaluation of dizziness. Dr. Vickers is the referring physician and PCP. Chart review: Saw PCP on 11/22/23 for check up, noted dizziness. "He continued to have orthostatic dizziness even off furosemide, so he resumed the medication. He saw his [employer] and stress test,echo, and Zio were unremarkable. Other issues noted by were increased somnolence, more difficulty with coordination holding a cup, and episodes of staring at other people or things for no apparent reason. " CT brain negative. Patient presents with his family for evaluation of dizziness. Patient notes that a few years ago heis been having some unsteadiness. Denying any room spinning or presyncopal sensation. No syncope orloss of consciousness. Does note that he is fallen twice from this, states that he trips over stepsand other things causing him to fall. No [...] is rocking back and forth but this r esolves if he starts walking. Notes that if [...] Patient and notes that he started drinking fromcups with 2 hands instead of 1. No [...] metal exposure, no heavy alcohol use, no chemotherapy,no supplements, no diet restrictions. No tremor, no [...] compliant with his Eliquis. Notes that he recentlyhad his blood pressure medications adjusted as there [...] HPI. Otherwise a 10-point ROS was completed andwas negative. ALLERGIES Allergen Reactions Baclofen Other: See [...] Power: MUSCLES Upper Extremity RIGHT LEFT Deltoid 5/5 5/5 Biceps 5/5 5/5 Triceps 5/5 4+/5 Wrist Extension 5/5 5/5 Wrist Flexion 5/5 5/5 Finger Flexion 5/5 5/5 Finger Extension 5/5 5/5 Finger Abd 5/5 5/5 Finger Add 5/5 5/5 MUSCLES Lower Extremity RIGHT LEFT Hip Flexion 12/30 4+/5 Hip Extension 12/30 5/5 BiFem (Knee Flex) 12/30 5 Quads (Knee Ext) 12/30 4+/5 Gastroc (Plantflx) 12/30 5 TibAnt (Dorsiflx) 12/30 5 FlxHLong (Toe Flex) 12/30 12/30 ExtHLong (Toe Ext) 12/30 5 Sensory Examination Absent vibration to the great toe and ankle, diminished at the knee bilaterally. Intact in the upper extremities. Intact proprioception to the upper extremities, positive pseudoathetosis on Romberg testing. Decreased temperature to the lower extremities compared to the upper, decreased pinprick throughout upper and lower extremities. Reflexes: Negative [place] bilaterally. Absent Achilles reflex bilaterally, 1- /4 to the patella bilaterally. 1/4 to the upper extremities bilaterally. Coordination: finger-to- nose-finger intact bilaterally. Difficulty with hyfz-ey-wptd with the leftlower extremity Gait: Patient's gait is slowed. Patient hunching over with some shuffling in his gait, normal arm swing. Romberg: Positive DATA REVIEWED Actual films/image/tracing reviewed and summarized as follows: CT brain Old records reviewed and summarized as follows: Primary care Assessment/Plan Assessment & Plan: Elyse Maloney is a 88 year old right-handed male with a history of A-fib on Eliquis, hypertension,hyperlipidemia, CAD, ISAAC. His examination demonstrates sensory changes in a stocking glove fashion with absent Achilles reflex and diminished patellar reflex. Weakness on the left lower extremity andminimally on the left upper extremity. Some left-sided drooping of the eyelid, but otherwise facialmuscles are intact. Significantly hard of hearing. Patient [...] extremity to evaluate for any signs of neurop athy or other neuromuscular etiology. Will obtain basic [...] which included preparing to see the patient, wfor-hr-gere patient care, completing clinical documentation, obtaining and/or reviewing separately obtained history, performing a medically appropriate examination, counseling and educating the pat ient/family/caregiver, and ordering medications, tests, or procedures. Marsha Arias PA-C [facility] Neurology This document has been created with [...] 78 (Recommend sleep study) documented in this encounterPrem[facility] Health [facility]04-03-2024 Miscellaneous Notes* Telephone Encounter - Chapis Heller - 11/29/2023 1:01 PM EDT Called patient and scheduled on 12/01 with Marsha Arias * Telephone Encounter - Elaine Jackson LPN - 11/29/2023 8:16 AM EDT Patient notified of below results/recommendation, verbalized understanding. PSS please contact Patient to schedule consult. Elaine Jackson LPN * Telephone Encounter - Ang Vickers MD - 11/28/2023 6:[address] with no acute findings, no signs of stroke, no mass. Chronic findings of volume loss and microvascular ischemia. I referred him to NEUROLOGY. Please schedule consultation. * Telephone Encounter - Keyonna Zarate RN - 11/28/2023 2:51 PM EDT Patient calling to ask if PCP would advise on his recent Brain CT results? Patient states she continues to have dizziness with certain positions and asks what his next steps should be? Thank you. documented in this encounterPrem[facility]10-16-2023 Instructions* Patient Instructions* Ang Vickers MD - 06/12/2023 7:12 PM EDT AVOID DAIRY UNTIL BETTER. documented in this encounterPremier Health [facility]10-16-2023 History of Present illness Narrative* Ang Vickers MD - 06/12/2023 7:02 PM EDT This note was created using Grabbed. Subjective Diarrhea is described as nonbloody, soft [...] distention, abdominal pain, blood in stool, nausea, rectalpain and vomiting. Genitourinary: Negative for decreased urine [...] elevated in 1 month. Ang Vickers MD * Randa William MA - 06/12/2023 6:47 PM EDT BP Manual readin/90 Pulse: 64 LEFT arm REGULAR cuff BP Jackelyn Average: 156/73 Pulse: 74 RIGHT arm REGULAR cuff 1. 143/881 Pulse: 84 2. 151/73 Pulse: 80 3. 154/73 Pulse: 69 4. 162/73 Pulse: 75 BP JACKELYN AVERAGE: 156/73 Pulse: 74 documented in this encounterPremier Health [facility]10-16-2023 Miscellaneous Notes* Telephone Encounter - Waleska Hebert RN - 06/12/2023 1:39 PM EDT Patient call in for loose watery stool [...] has been watery; It has also been "klumpy" before 4. VOMITING: Anuj 5. ABDOMINAL PAIN: [...] SYMPTOMS: Denies any other symptoms. Protocols used: [id number] * Telephone Encounter - Mainor Hanson Ma - 06/12/2023 1:32 PM EDT Spoke with triage nurse ROLY. She will call to triage pt. * Telephone Encounter - Laila Carballo - 06/12/2023 9:49 AM EDT Patient verified by name and . Patient states he is experiencing extreme loose stools, hasn't had a solid bowl movement in 1.5 weeks. He would like to know if he can get a stool lab test to figureout what's going on. Review and advise. documented in [facility] encounter[facility] History of Present illness Narrative* Ang Vickers MD - 10/26/2022 1:21 PM EST This note was created using Grabbed. Subjective Elyse Maloney is a 86 year [...] Controlled. Ang Vickers MD documented in this encounterPrem[facility] Instructions* Patient Instructions* Ang Vickers MD - 09/28/2022 9:16 AM EST FASTING BLOOD WORK SOON. documented in this encounterPrem[facility] History of Present illness Narrative* Ang Vickers MD - 09/28/2022 9:00 AM EST This note was created using Grabbed. Subjective Elyse Maloney is a 86 year old male. He felt well. He saw his director [employer] for [employer] Dr. Estela coronel several months ago, and everything was fine. [...] by mouth once daily. (Patient not taking: Reportedon 09/28/2022) No current facility-administered medications for this visit. Objective BP 149/74 (BP Site: Left Arm, BP Position: Sitting, BP Cuff Size: Large Adult) Pulse 65 Temp 36C (96.8 F) (Temporal) Resp 16 Ht 175.3 cm (5' 9") Wt 91.2 kg (201 lb) BMI 29.68 [...] ICD10: I48.11 Controlled, anticoagulated. 4. Atherosclerosis of [place] coronary artery of [place] heart without angina pectoris - ICD9: 414.01, [...] vaccine - ICD9: V04.89, ICD10: Z23 - [employer] COVID-19 BIVALENT BOOSTER VACCINE, AGE 12+ YR Ang Vickers MD * Ang Vickers MD - 09/28/2022 8:48 AM EST Elyse Maloney is a 86 year old male here for a Medicare Subsequent Annual Wellness Visit Health Risk Assessment In general, health is: Very good Concerns with balance:Several days Concerns with teeth or dentures:Not at all Concerns with sexual function:Not at all [place] anxious, stressed, angry, irritable, lonely, isolated, or [...] Carlos Soto, dermatology. Dr. Dino Liriano, ophthalmology. [facility] provider, CNP. Emily Madrigal for CPAP supplies. Medical/Family history review Reviewed [...] with patient, and I recommended no further interventionat this time. Cognitive screening Mini Cog Score: 4 Cognitive screening reviewed and no further action needed (score 3-5) Functional Observation Was the patient's timed Up & Go test unsteady or ? 12 seconds? No Advance Care Planning End of Life planning discussed, including patient's advanced directive wishes: Yes Measurements BP 149/74 Pulse 65 Temp (Src) 96.8 (Temporal) Resp 16 Ht 5' 9" (1.75m) Wt 201 lb (91.2kg) BMI 29.67 kg/(m^2). Visual acuity (required for Welcome to Medicare): follows with optometry/ophthalmology and Right: 20/50 Left: 20/ 70 Both: 20/40 Hearing Evaluation: wears hearing aids Assessment/Plan - Counseled on healthy diet and regular exercise - Fall avoidance - Vaccines recommended COVID-19 - Depression screening documented in this encounterPrem[facility] History of Past illness Narrative* Problem Noted [...] of this encounter (statuses as of 12/05/2023) [facility] History of Past illness Narrative* Problem Noted [...] CPAP 8 hours a night as of 5-09 Last sleep study about age 70 Diverticulosis of colon (wit hout mention of hemorrhage) 04/05/2005 06/07/2017 documented as of this encounter (statuses as of 12/06/2023) [facility] History of Past illness Narrative* Problem Noted [...] of this encounter (statuses as of 12/08/2023) [facility] History of Present illness Narrative* Lisa Jim, [...] Planned: 1 Planned Treatment Interventions: Neuromuscular re-education (89151);Self-alf management (88011) PLAN FOR NEXT VISIT: 1 visit. Pt. 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 Equipment Owned: Cane;Wheeled [...] Yes Description: dizziness Rating of current symptoms: 11/04 Frequency: Intermittent Duration: seconds Symptoms worsened by: [...] To Stand Comments: brief dizziness described as "lightheadedness.", 1x <5 sec Stand To Sit: Comments;Modified [...] Back: States/Identifies;Return Demonstration TREATMENT: PT Treatment Interventions: Self-Fpc Management Evaluation Evaluation Self-Fpc Management: 1: *discussed safety awareness with provoking [...] 47 Lisa Jim PT documented in this encounterPrem[facility]09-13-[facility] Miscellaneous Notes* Telephone Encounter - Rigoberto Galicia [...] is up. Recheck labs in one week. Humphreyek sure not taking any calcium supplements. documented in this encounterPrem[facility]09-12-[facility] History of Present illness Narrative* Mehrdad Victor [...] in detail. Mehrdad Victor documented in this encounterPrem[facility]08-01-2022 History of Present illness Narrative* Daniela Lyons, MOLD HOLDER.MOLD HOLDER - 03/28/2022 9:02 AM EDT CC: Patient [...] with 140's /70's-80's. 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 Pt states that this has come back negative and the [facility] is following him for management of anemia. [...] treatment plan. Mekhi Decker documented in this encounterPrem[facility]06-24-[facility] History of Past illness Narrative* Problem Noted [...] of this encounter (statuses as of 06/12/2023) [facility] History of Past illness Narrative* Problem Noted [...] of this encounter (statuses as of 06/13/2023) [facility] History of Present illness Narrative* Ang Vickers MD - 02/18/2022 10:30 AM EDT This note was created using Grabbed. Subjective Elyse Maloney is a 86 year old male. His cellulitis resolved. Wound was drying up. He was diagnosed with low magnesium and had been on magnesium tablets for one year[facility] He was also showing glucose intolerance on his labs thru the [facility]. His recent labs showed a mild anemia. IFOBT was ordered thru the [facility]. Review of Systems Constitutional: Negative. Gastrointestinal: Negative [...] provider. Ang Vickers MD documented in this encounterPrem[facility]06-20-20[facility] History of Present illness Narrative* Ang Vickers MD - 02/14/2022 10:15 AM EDT This note was created using Nusirtter. Subjective Elyse Maloney is a 86 year old male. He slipped on a wooden dock about 10 days ago, and abraded his left banuelos. He was doing wound care, and his daughter who is a nurse helped with wound care while in [place]. He returned here and developed redness, heat, [...] F) Resp 12 Ht 176.5 cm (5' 9.5") Wt 91.2 kg (201 lb) SpO2 95% [...] injury. Ang Vickers MD documented in this encounterPrem[facility]06-14-20[facility] History of Present illness Narrative* Lisa Brantley APRN.CNP - 02/08/2022 11:18 AM EDT 86 year [...] and IV ATB usage. documented in this encounterPrem[facility]06-13-2022 Instructions* Patient Instructions* Lisa Brantley APRN.CNP - 02/07/2022 10:05 AM EDT [facility] PATIENT INFO SKIN INFECTION OVERVIEW Cellulitis is an infection of the skin and soft tissue of the skin. The infection is usually causedby bacteria that normally live on the skin, such as staphylococci ("Staph") or streptococci ("Strep"). The infection develops when there is a [...] types of skin infections include abscesses, furuncles ("boils"), and carbuncles. These usually cause a collection [...] mouth for one to two weeks. The "best" antibiotic depends upon your situation. If the [...] infections in the future. documented in this encounterPrem[facility]06-13-2022 History of Present illness Narrative* Maria Elena [...] 07, 2022 9:41 AM documented in this encounterPrem[facility]06-13-2022 History of Present illness Narrative* Lisa Brantley APRN.CNP - 02/07/2022 9:30 AM EDT Images from the original note were not included. This note was created using NoteWriter. Subjective Elyse Maloney is a 86 year old male. 86 year old male with PMH afib( on Eliquis), HTN, hyperlipidemia, ISAAC, BPH, presents for wound leftlower leg. Acute onset one week ago. States he was [place] in [place]. Endorses that he was walking on a dock, which was slippery, and he fell straight forward. Denies LOC. Denies neck or back pain. Denies abdominal pain. Cut left lower leg, but unsure of what he cut it on. States he did not seek medical treatment at that time. Has been wrapping the area up and applying neosporin. at bedside and states " we want to make sure it isn't broken and he needs a tetanus" The history is provided by the patient. No bark grinder was used. Trauma This is a new [...] Follow up for wound recheck. Lisa Brantley APRN.MOLD HOLDER documented in this encounterPrem[facility]09[facility] History of Past illness Narrative* Problem Noted [...] of this encounter (statuses as of 02/07/2022) [facility] History of Past illness Narrative* Problem Noted [...] of this encounter (statuses as of 02/08/2022) [facility] History of Past illness Narrative* Problem Noted [...] of this encounter (statuses as of 02/14/2022) [facility] History of Past illness Narrative* Problem Noted [...] of this encounter (statuses as of 02/18/2022) [place] [address]-19-2013 History of Past illness Narrative* Problem Noted [...] of this encounter (statuses as of 03/28/2022) [facility] History of Past illness Narrative* Problem Noted [...] of this encounter (statuses as of 05/09/2022) [facility] History of Past illness Narrative* Problem Noted [...] of this encounter (statuses as of 05/12/2022) [facility] History of Past illness Narrative* Problem Noted [...] of this encounter (statuses as of 05/31/2022) [facility] History of Past illness Narrative* Problem Noted [...] of this encounter (statuses as of 06/01/2022) [facility] History of Past illness Narrative* Problem Noted [...] of this encounter (statuses as of 09/28/2022) [facility] History of Past illness Narrative* Problem Noted [...] of this encounter (statuses as of 10/26/2022) [facility]* Diagnosis Cellulitis of left leg- Primary Cellulitis and abscess of leg, except foot Left leg pain Pain in limb Fall on same level from slipping, tripping or stumbling, initial encounter Encounter for immunization Need for other specified prophylactic vaccination against single bacterial disease Wound of left lower extremity, initial encounter documented in this encounter [facility] noteNo assessment information availableWUniversity Hospitals [facility] Work Phone: Evaluation note* Diagnosis Cellulitis of left leg- Primary Cellulitis and abscess of leg, except foot Failure of outpatient treatment [facility] Diagnosis Abrasion of left lower leg with infection, subsequent encounter- Primary Cellulitis of left lower extremity Cellulitis and abscess of leg, except foot Essential hypertension Unspecified essential hypertension documented in this encounter [facility]* Diagnosis Abrasion of left lower leg with infection, subsequent encounter- Primary Essential hypertension Unspecified essential hypertension Impaired fasting glucose Hypomagnesemia Disorders of magnesium metabolism Anemia, unspecified type [facility] Essential hypertension- Primary Unspecified essential hypertension Longstanding persistent atrial fibrillation (HCC) Impaired fasting glucose Anemia, unspecified type Obstructive sleep apnea Obstructive sleep apnea (adult) (pediatric) documented in this encounter [facility]* Diagnosis Lightheaded- Primary Dizziness and giddiness Testicular swelling Edema of male genital organs Vertigo Dizziness and giddiness documented in this encounter [facility]* Diagnosis Renal insufficiency- Primary Unspecified disorder of kidney and ureter Hypercalcemia documented in this encounter [facility]* Diagnosis Vertigo- Primary Dizziness and giddiness [facility] Diagnosis Testicular swelling Edema of male genital organs documented in this encounter [facility]* Diagnosis Medicare annual wellness visit, subsequent- Primary Routine general medical examination at a health care facility Essential hypertension Unspecified essential hypertension Longstanding persistent atrial fibrillation (HCC) Atherosclerosis of [place] coronary artery of [place] heart without angina pectoris Hypomagnesemia Disorders of magnesium metabolism Impaired fasting glucose Hypercalcemia Pure hypercholesterolemia Need for COVID-19 vaccine documented in this encounter [facility]* Diagnosis Impaired fasting glucose- Primary Essential hypertension Unspecified essential hypertension Hypomagnesemia Disorders of magnesium metabolism Pure hypercholesterolemia [facility]* Diagnosis Diarrhea, unspecified type- Primary Essential hypertension Unspecified essential hypertension documented in this encounter [facility]* Diagnosis Onset Date Resolution Status Atherosclerotic heart diseas e of [place] coronary artery without angina pectoris chronic Essential (primary) hypertension chronic Hyperlipidemia chronic Longstanding persistent atrial fibrillation chronic Dizziness resolved [facility] Work Phone: Evaluation note* Diagnosis Neuropathy- Primary Mononeuritis of unspecified site Orthostatic dizziness Abnormal gait Abnormality of gait documented in this encounter [facility]* Diagnosis Orthostatic dizziness Abnormal gait Abnormality of gait documented in this encounter [facility]* Diagnosis Muscle weakness (generalized) [M62.81]- Primary Muscle weakness (generalized) Abnormal gait Abnormality of gait Paresthesia of skin [R20.2] Disturbance of skin sensation documented in this encounter [facility]* Diagnosis Spinal stenosis of lumbar region, unspecified whether neurogenic claudication present- Primary Spinal stenosis of cervical region Spinal stenosis in cervical region Abnormal gait Abnormality of gait documented in this encounter [facility]* Diagnosis Abnormal gait- Primary Abnormality of gait Orthostatic dizziness Essential hypertension Unspecified essential hypertension documented in this encounter [facility]* Diagnosis Spinal stenosis of lumbar region, unspecified whether neurogenic claudication present Abnormal gait Abnormality of gait Spinal stenosis of cervical region Spinal stenosis in cervical region documented in this encounter [facility]* Diagnosis Spinal stenosis of lumbar region, unspecified whether neurogenic claudication present- Primary Cervical stenosis of spinal canal Spinal stenosis in cervical region documented in this encounter [facility]* Diagnosis Unsteadiness on feet- Primary Abnormality of gait Spinal stenosis of lumbar region, unspecified whether neurogenic claudication present Cervical stenosis of spinal canal Spinal stenosis in cervical region Orthostatic dizziness documented in this encounter [facility]* Diagnosis Spinal stenosis of lumbar region, unspecified whether neurogenic claudication present- Primary Cervical stenosis of spinal canal Spinal stenosis in cervical region Unsteadiness on feet Abnormality of gait Orthostatic dizziness documented in this encounter [facility]* Diagnosis Unsteadiness on feet- Primary Abnormality of gait Orthostatic dizziness Spinal stenosis of lumbar region without neurogenic claudication Spinal stenosis, lumbar region, without neurogenic claudication Cervical stenosis of spinal canal Spinal stenosis in cervical region [facility] Diagnosis Unsteadiness on feet- Primary Abnormality of gait Orthostatic dizziness Spinal stenosis of lumbar region without neurogenic claudication Spinal stenosis, lumbar region, without neurogenic claudication Cervical stenosis of spinal canal Spinal stenosis in cervical region documented in this encounter [facility]* Diagnosis Unsteadiness on feet- Primary Abnormality of gait Orthostatic dizziness Spinal stenosis of lumbar region without neurogenic claudication Spinal stenosis, lumbar region, without neurogenic claudication Cervical stenosis of spinal canal Spinal stenosis in cervical region documented in this encounter [facility]* Diagnosis Unsteadiness on feet- Primary Abnormality of gait Orthostatic dizziness Spinal stenosis of lumbar region without neurogenic claudication Spinal stenosis, lumbar region, without neurogenic claudication Cervical stenosis of spinal canal Spinal stenosis in cervical region documented in this encounter [facility]* Diagnosis At risk for falling- Primary Personal history of fall Need for influenza vaccination Need for prophylactic vaccination and inoculation against influenza Unsteadiness on feet Abnormality of gait Longstanding persistent atrial fibrillation (HCC) Essential hypertension Unspecified essential hypertension Atherosclerosis of [place] coronary artery of [place] heart without angina pectoris Screening for depression Encounter for screening examination for other mental health and behavioral disorders documented in this encounter [facility]* Diagnosis Abnormality of gait- Primary Orthostatic dizziness Abnormal gait Abnormality of gait Neuropathy Mononeuritis of unspecified site Spinal stenosis of lumbar region without neurogenic claudication Spinal stenosis, lumbar region, without neurogenic claudication [facility] Diagnosis Cellulitis of left leg Cellulitis and abscess of leg, except foot documented in this encounter [facility]* Diagnosis Spinal stenosis of lumbar region, unspecified whether neurogenic claudication present- Primary Abnormality of gait Parkinsonism, unspecified Parkinsonism type (HCC) documented in this encounter [facility]* Diagnosis Multifactorial gait disorder- Primary Abnormality of gait Abnormal gait Abnormality of gait Spinal stenosis of lumbar region, unspecified whether neurogenic claudication present Neuropathy Mononeuritis of unspecified site Hypertension, unspecified type Screening for diabetes mellitus (DM) Screening for diabetes mellitus documented in this encounter [facility]* Diagnosis Proteinuria, unspecified type- Primary documented in this encounter [facility]* Diagnosis Medicare annual wellness visit, subsequent- Primary Routine general medical examination at a health care facility Longstanding persistent atrial fibrillation (HCC) Essential hypertension Unspecified essential hypertension Atherosclerosis of [place] coronary artery of [place] heart without angina pectoris Abnormal gait Abnormality of gait Impaired fasting glucose Pure Hypercholesterolemia Pure hypercholesterolemia documented in this encounter [facility]* Diagnosis Rash- Primary Rash and other nonspecific skin eruption documented in this encounter [facility]* Diagnosis Onset Date Resolution Status Admit Date Atherosclerotic heart diseas e of [place] coronary artery without angina pectoris chronic April 02, 2025 9:12am Essential (primary) hypertension chr onic April 02, 2025 9:12am Hyperlipidemia chronic March 9:12am Longstanding persistent atri al fibrillation chronic April 02, 2025 9:12am [employer] Work Phone: Evaluation note* Diagnosis Dizziness- Primary Dizziness and giddiness Unsteadiness on feet Abnormality of gait At risk for falling Personal history of fall Essential hypertension Unspecified essential hypertension Abnormal gait Abnormality of gait [facility] Additional Instructions Area of redness was outlined today. Please continue your antibiotics. If the erythema has extended beyond this line after another 24 to 40 hours of antibiotics you need to be seen again. Please return for thick drainage, increasing redness or pain, fever.[facility] Work Phone: Hospital Discharge instructionsAdditional Instructions Your imaging study showed no sign of brain bleed or skull fracture or damage to your left hip. Please continue all of your home medications as directed by your doctor and return to the ER should you have any further concernsWooKettering Health [facility]al [facility] Center Work Phone: Reason for referral (narrative)* Diagnostic Procedure Only (Urgent) - Closed Specialty Diagnoses / Procedures Referred By Contac t Referred To Contact XR IMAGING Diagnoses Cellulitis of left leg Procedures XR TIBIA FIBULA 2V AP/LAT LEFT RADIOLOGIC EXAMINATION TIBIA & FIBULA 2 VIEWS Lisa Brantley APRN.MOLD HOLDER [address] [place] [address] Xr Imaging Referral ID Status Reason Start Date Expiration Date V isits Requested Visits Authorized [id number] Closed Auto-Generate d Referral 02/07/2022 03/09/2023 1 1 [facility] for referral (narrative)* Diagnostic Procedure Only (Routine) - Closed Specialty Diagnoses / Procedures Referred By Contac t Referred To Contact US IMAGING Diagnoses Testicular swelling Procedures US SCROTUM AND CONTENTS US SCROTUM & CONTENTS Mehrdad Victor MD [address] [place] [address] Us Imaging Referral ID Status Reason Start Date Expiration Date V isits Requested Visits Authorized [id number] Closed Auto-Generate d Referral 05/09/2022 06/08/2023 1 1 [facility] for referral (narrative)* Diagnostic Procedure Only (Urgent) - Closed Specialty Diagnoses / Procedures Referred By Contac t Referred To Contact XR IMAGING Diagnoses Cellulitis of left leg Procedures XR TIBIA FIBULA 2V AP/LAT LEFT RADIOLOGIC EXAMINATION TIBIA & FIBULA 2 VIEWS Lisa Brantley APRN.MOLD HOLDER [address] [place] [address] [place] [address] Referral ID Status Reason Start Date Expiration Date V isits Requested Visits Authorized [id number] Closed Auto-Generate d Referral 02/07/2022 03/09/2023 1 1 [facility] for referral (narrative)No reason for referral information availableWUniversity Hospitals [facility] Work Phone: Reason for visit Narrative* Diagnostic Procedure Only (Routine) - Closed Specialty Diagnoses / Procedures Referred By Contac t Referred To Contact US IMAGING Diagnoses Testicular swelling Procedures US SCROTUM AND CONTENTS US SCROTUM & CONTENTS Mehrdad Victor MD [address] [place] [address] Us Imaging Referral ID Status Reason Start Date Expiration Date V isits Requested Visits Authorized [id number] Closed Auto-Generate d Referral 05/09/2022 06/08/2023 1 1 [facility] for visit Narrative* Diagnostic Procedure Only (Urgent) - Closed Specialty Diagnoses / Procedures Referred By Contac t Referred To Contact XR IMAGING Diagnoses Cellulitis of left leg Procedures XR TIBIA FIBULA 2V AP/LAT LEFT RADIOLOGIC EXAMINATION TIBIA & FIBULA 2 VIEWS Lisa Brantley, MOLD HOLDER.MOLD HOLDER [address] [place] [address] [place] [address] Referral ID Status Reason Start Date Expiration Date V isits Requested Visits Authorized [id number] Closed Auto-Generate d Referral 02/07/2022 03/09/2023 1 1 [facility] Advance Directives No Advanced Directives Records FoundDocuments on File Type Date Recorded 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 Advance Directive(s) 09/28/2011 12:00 AM Advance Directive(s) 10/13/2006 12:00 AM Advance Directive Response Recorded Date/ Time Advance Directives Yes June 11:39am Living Will Yes February 08, 2022 11:38am Power of Revenue Stamp Cutter Yes February 08 11:38am Documents on File Type Date Recorded 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 Advance Directive(s) 09/28/2011 12:00 AM Advance Directive(s) 10/13/2006 12:00 AM Documents on File Type Date Recorded 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 Advance Directive(s) 09/28/2011 Advance Directive(s) 10/13/2006 Documents on File Type Date Recorded 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 Advance Directive(s) 09/28/2011 Advance Directive(s) 10/13/2006 Advance Directive Response Recorded Date/ Time Advance Directives Yes June 10:39am Living Will Yes February 08, 2022 10:38am Power of Revenue Stamp Cutter Yes February 08 10:38am Advance Directive Response Recorded Date/ Time Do you have a Healthcare Power of Revenue Stamp Cutter? Yes April 01, 2025 10:23pm Advance Directives Yes June 11:39am Chief Complaint and Reason for Visit Chief Complaint CELLULITIS Chief Complaint Request by Dr. Cristy le; near syncope Reason for Visit Atherosclerotic hear t disease of [place] coronary artery without angina pectoris Essential (primary) hypertension Hyperlipidemia Longstanding persistent atrial fibrillation Dizziness Chief Complaint Request by Dr. Cristy le; near syncope Dizziness ESTELA TO READ 30 DAY MONITOR Longstanding persistent atrial fibrillation Longstanding persistent atrial fibrillation PALP Reason for Visit Atherosclerotic hear t disease of [place] coronary artery without angina pectoris Essential (primary) hypertension Hyperlipidemia Longstanding persistent atrial fibrillation Dizziness Chief Complaint Admit Date fall April 01, 2025 10: 17pm Chief Complaint Admit Date fall April 01, 2025 10: 17pm 6 M FU April 02, 2025 9:1 2am Reason for Visit Admit Date Atherosclerotic heart diseas e of [place] coronary artery without angina pectoris April 02, 2025 9:12am Essential (primary) hypertension April 02, 2025 9:12am Hyperlipidemia April 02, 2025 9:1 2am Longstanding persistent atrial fibrillat ion April 02, 2025 9:12am Reason for Referral Specialty Diagnoses / Procedures Referred By Daniel berkowitz Referred To Contact [facility] Diagnoses Vertigo Procedures CONSULT TO PHYSICAL THERAPY PHYSICAL THERAPY EVALUATION HIGH COMPLEX 45 MINS Mehrdad Victor MD [address] [place] [address] [facility] [place] [address] [place] [address] Referral ID Status Reason Start Date Expiration Date Visits Requested Visits Authorized [id number] Authorized PCP Requested Referral Auto-Generate d Referral 05/09/2022 05/09/2023 99 99 Specialty Diagnoses / Procedures Referred By Contac t Referred To Contact US IMAGING Diagnoses Testicular swelling Procedures US SCROTUM AND CONTENTS US SCROTUM & CONTENTS Mehrdad Victor MD [address] [place] [address] Us Imaging Referral ID Status Reason Start Date Expiration Date Visits Requested Visits Authorized [id number] Authorized Auto-Generat ed Referral 05/09/2022 06/08/2023 1 1 Specialty Diagnoses / Procedures Referred By Contac t Referred To Contact MR IMAGING Diagnoses Orthostatic dizziness Abnormal gait Procedures MRI BRAIN WO IVCON MRI BRAIN BRAIN STEM W/O CONTRAST MATERIAL Marsha Arias PA-C [address] [place] [address] Mr Imaging [place] [address] Referral ID Status Reason Start Date Expiration Date Visits Requested Visits Authorized [id number] Authorized Auto-Generat ed Referral 12/05/2023 01/03/2025 1 1 Specialty Diagnoses / Procedures Referred By Contac t Referred To Contact [facility] Diagnoses Abnormal gait Procedures EMG(NEURO/NI) NERVE CONDUCTION STUDIES 05-07 STUDIES Marsha Arias PA-C [address] [place] [address] [facility] [address] [place] [id number] Referral ID Status Reason Start Date Expiration Date Visits Requested Visits Authorized [id number] Pending Review Auto-Generat ed Referral 12/05/2023 12/04/2024 1 1 Referral ID Status Reason Start Date Expiration Date V isits Requested Visits Authorized [id number] Closed Auto-Generate d Referral 12/05/2023 01/03/2025 1 1 Specialty Diagnoses / Procedures Referred By Contac t Referred To Contact MR IMAGING Diagnoses Spinal stenosis of cervical region Abnormal gait Procedures MRI CERVICAL SPINE WO IVCON MRI SPINAL CANAL CERVICAL W/O CONTRAST MATRL Marsha Arias PA-C [address] [place] [address] [place] [address] Referral ID Status Reason Start Date Expiration Date Visits Requested Visits Authorized [id number] Authorized Auto-Generat ed Referral 01/19/2024 02/17/2025 1 1 Specialty Diagnoses / Procedures Referred By Contac t Referred To Contact MR IMAGING Diagnoses Spinal stenosis of lumbar region, unspecified whether neurogenic claudication present Abnormal gait Procedures MRI LUMBAR SPINE WO IVCON MRI SPINAL CANAL LUMBAR W/O CONTRAST MATERIAL Marsha Arias PA-C [address] [place] [address] Mr Imaging [facility] Referral ID Status Reason Start Date Expiration Date Visits Requested Visits Authorized [id number] Authorized Auto-Generat ed Referral 01/19/2024 02/17/2025 1 1 Referral ID Status Reason Start Date Expiration Date V isits Requested Visits Authorized [id number] Closed Auto-Generate d Referral 01/19/2024 02/17/2025 1 1 Referral ID Status Reason Start Date Expiration Date V isits Requested Visits Authorized [id number] Closed Auto-Generate d Referral 01/19/2024 02/17/2025 1 1 Specialty Diagnoses / Procedures Referred By Contac t Referred To Contact Neurology Diagnoses Spinal stenosis of lumbar region, unspecified whether neurogenic claudication present Cervical stenosis of spinal canal Procedures CONSULT TO NEUROLOGY OFFICE/OUTPATIENT [facility] MDM 60 MINUTES Marsha Arias PA-C [address] [place] [address] Referral ID Status Reason Start Date Expiration Date Visits Requested Visits Authorized [id number] Authorized PCP Requested Referral 01/25/2024 01/24/2025 1 1 Specialty Diagnoses / Procedures Referred By Contac t Referred To Contact [facility] Diagnoses Spinal stenosis of lumbar region, unspecified whether neurogenic claudication present Cervical stenosis of spinal canal Unsteadiness on feet Orthostatic dizziness Procedures CONSULT TO PHYSICAL THERAPY PHYSICAL THERAPY EVALUATION HIGH [facility] 45 MINS Marsha Arias PA-C [address] [place] [address] [facility] [place] [address] [place] [address] Referral ID Status Reason Start Date Expiration Date Visits Requested Visits Authorized [id number] Authorized PCP Requested Referral Auto-Generate d Referral 01/26/2024 01/25/2025 99 99 Specialty Diagnoses / Procedures Referred By Daniel berkowitz Referred To Contact Neurology Diagnoses Abnormality of gait Procedures CONSULT TO NEUROLOGY OFFICE/OUTPATIENT [facility] 60 MINUTES Marsha Arias PA-C [address] [place] [address] Referral ID Status Reason Start Date Expiration Date Visits Requested Visits Authorized [id number] Authorized PCP Requested Referral 05/22/2024 05/22/2025 1 [...] or prosecute any alcohol or drug abuse patient.[facility] the event this information is protected by the Federal Confidentiality of Alcohol and Drug Abuse Patient Records regulations: The Federal rules restrict any use of the information to criminally investigate or prosecute any alcohol or drug abuse patient.[facility] the event this information is protected by the Federal Confidentiality of Alcohol and Drug Abuse Patient Records regulations: The Federal rules restrict any use of the information to criminally investigate or prosecute any alcohol or drug abuse patient.[facility] the event this information is protected by the Federal Confidentiality of Alcohol and Drug Abuse Patient Records regulations: The Federal rules restrict any use of the information to criminally investigate or prosecute any alcohol or drug abuse patient.[facility] the event this information is protected by the Federal Confidentiality of Alcohol and Drug Abuse Patient Records regulations: The Federal rules restrict any use of the information to criminally investigate or prosecute any alcohol or drug abuse patient.[facility] the event this information is protected by the Federal Confidentiality of Alcohol and Drug Abuse Patient Records regulations: The Federal rules restrict any use of the information to criminally investigate or prosecute any alcohol or drug abuse patient.[facility] the event this information is protected by the Federal Confidentiality of Alcohol and Drug Abuse Patient Records regulations: The Federal rules restrict any use of the information to criminally investigate or prosecute any alcohol or drug abuse patient.[facility]In the event this information is protected by the Federal Confidentiality of Alcohol and Drug Abuse Patient Records regulations: The Federal rules restrict any use of the information to criminally investigate or prosecute any alcohol or drug abuse patient.[facility]In the event this information is protected by the Federal Confidentiality of Alcohol and Drug Abuse Patient Records regulations: The Federal rules restrict any use of the information to criminally investigate or prosecute any alcohol or drug abuse patient.[facility] the event this information is protected by the Federal Confidentiality of Alcohol and Drug Abuse Patient Records regulations: The Federal rules restrict any use of the information to criminally investigate or prosecute any alcohol or drug abuse patient.[facility]In the event this information is protected by the Federal Confidentiality of Alcohol and Drug Abuse Patient Records regulations: The Federal rules restrict any use of the information to criminally investigate or prosecute any alcohol or drug abuse patient.[facility]In the event this information is protected by the Federal Confidentiality of Alcohol and Drug Abuse Patient Records regulations: The Federal rules restrict any use of the information to criminally investigate or prosecute any alcohol or drug abuse patient.[facility] the event this information is protected by the Federal Confidentiality of Alcohol and Drug Abuse Patient Records regulations: The Federal rules restrict any use of the information to criminally investigate or prosecute any alcohol or drug abuse patient.[facility] the event this information is protected by the Federal Confidentiality of Alcohol and Drug Abuse Patient Records regulations: The Federal rules restrict any use of the information to criminally investigate or prosecute any alcohol or drug abuse patient.[facility]In the event this information is protected by the Federal Confidentiality of Alcohol and Drug Abuse Patient Records regulations: The Federal rules restrict any use of the information to criminally investigate or prosecute any alcohol or drug abuse patient.[facility]In the event this information is protected by the Federal Confidentiality of Alcohol and Drug Abuse Patient Records regulations: The Federal rules restrict any use of the information to criminally investigate or prosecute any alcohol or drug abuse patient.[facility]In the event this information is protected by the Federal Confidentiality of Alcohol and Drug Abuse Patient Records regulations: The Federal rules restrict any use of the information to criminally investigate or prosecute any alcohol or drug abuse patient.[facility]In the event this information is protected by the Federal Confidentiality of Alcohol and Drug Abuse Patient Records regulations: The Federal rules restrict any use of the information to criminally investigate or prosecute any alcohol or drug abuse patient.[facility]In the event this information is protected by the Federal Confidentiality of Alcohol and Drug Abuse Patient Records regulations: The Federal rules restrict any use of the information to criminally investigate or prosecute any alcohol or drug abuse patient.[facility]In the event this information is protected by the Federal Confidentiality of Alcohol and Drug Abuse Patient Records regulations: The Federal rules restrict any use of the information to criminally investigate or prosecute any alcohol or drug abuse patient.[facility]In the event this information is protected by the Federal Confidentiality of Alcohol and Drug Abuse Patient Records regulations: The Federal rules restrict any use of the information to criminally investigate or prosecute any alcohol or drug abuse patient.[facility]In the event this information is protected by the Federal Confidentiality of Alcohol and Drug Abuse Patient Records regulations: The Federal rules restrict any use of the information to criminally investigate or prosecute any alcohol or drug abuse patient.[facility]In the event this information is protected by the Federal Confidentiality of Alcohol and Drug Abuse Patient Records regulations: The Federal rules restrict any use of the information to criminally investigate or prosecute any alcohol or drug abuse patient.[facility]In the event this information is protected by the Federal Confidentiality of Alcohol and Drug Abuse Patient Records regulations: The Federal rules restrict any use of the information to criminally investigate or prosecute any alcohol or drug abuse patient.[facility]In the event this information is protected by the Federal Confidentiality of Alcohol and Drug Abuse Patient Records regulations: The Federal rules restrict any use of the information to criminally investigate or prosecute any alcohol or drug abuse patient.[facility]In the event this information is protected by the Federal Confidentiality of Alcohol and Drug Abuse Patient Records regulations: The Federal rules restrict any use of the information to criminally investigate or prosecute any alcohol or drug abuse patient.[facility]In the event this information is protected by the Federal Confidentiality of Alcohol and Drug Abuse Patient Records regulations: The Federal rules restrict any use of the information to criminally investigate or prosecute any alcohol or drug abuse patient.[facility]In the event this information is protected by the Federal Confidentiality of Alcohol and Drug Abuse Patient Records regulations: The Federal rules restrict any use of the information to criminally investigate or prosecute any alcohol or drug abuse patient.[facility]In the event this information is protected by the Federal Confidentiality of Alcohol and Drug Abuse Patient Records regulations: The Federal rules restrict any use of the information to criminally investigate or prosecute any alcohol or drug abuse patient.[facility]In the event this information is protected by the Federal Confidentiality of Alcohol and Drug Abuse Patient Records regulations: The Federal rules restrict any use of the information to criminally investigate or prosecute any alcohol or drug abuse patient.[facility]In the event this information is protected by the Federal Confidentiality of Alcohol and Drug Abuse Patient Records regulations: The Federal rules restrict any use of the information to criminally investigate or prosecute any alcohol or drug abuse patient.[facility]In the event this information is protected by the Federal Confidentiality of Alcohol and Drug Abuse Patient Records regulations: The Federal rules restrict any use of the information to criminally investigate or prosecute any alcohol or drug abuse patient.[facility]In the event this information is protected by the Federal Confidentiality of Alcohol and Drug Abuse Patient Records regulations: The Federal rules restrict any use of the information to criminally investigate or prosecute any alcohol or drug abuse patient.[facility]In the event this information is protected by the Federal Confidentiality of Alcohol and Drug Abuse Patient Records regulations: The Federal rules restrict any use of the information to criminally investigate or prosecute any alcohol or drug abuse patient.[facility]In the event this information is protected by the Federal Confidentiality of Alcohol and Drug Abuse Patient Records regulations: The Federal rules restrict any use of the information to criminally investigate or prosecute any alcohol or drug abuse patient.[facility]In the event this information is protected by the Federal Confidentiality of Alcohol and Drug Abuse Patient Records regulations: The Federal rules restrict any use of the information to criminally investigate or prosecute any alcohol or drug abuse patient.[facility]In the event this information is protected by the Federal Confidentiality of Alcohol and Drug Abuse Patient Records regulations: The Federal rules restrict any use of the information to criminally investigate or prosecute any alcohol or drug abuse patient.[facility]In the event this information is protected by the Federal Confidentiality of Alcohol and Drug Abuse Patient Records regulations: The Federal rules restrict any use of the information to criminally investigate or prosecute any alcohol or drug abuse patient.[facility]In the event this information is protected by the Federal Confidentiality of Alcohol and Drug Abuse Patient Records regulations: The Federal rules restrict any use of the information to criminally investigate or prosecute any alcohol or drug abuse patient.[facility]In the event this information is protected by the Federal Confidentiality of Alcohol and Drug Abuse Patient Records regulations: The Federal rules restrict any use of the information to criminally investigate or prosecute any alcohol or drug abuse patient.[facility]In the event this information is protected by the Federal Confidentiality of Alcohol and Drug Abuse Patient Records regulations: The Federal rules restrict any use of the information to criminally investigate or prosecute any alcohol or drug abuse patient.[facility]In the event this information is protected by the Federal Confidentiality of Alcohol and Drug Abuse Patient Records regulations: The Federal rules restrict any use of the information to criminally investigate or prosecute any alcohol or drug abuse patient.[facility] Reason for Visit (unrecogniz ed section and content) Reason Comments Physical Therapy Specialty Diagnoses / Procedures Referred By Contac t Referred To Contact [facility] Diagnoses Spinal stenosis of lumbar region, unspecified whether neurogenic claudication present Cervical stenosis of spinal canal Unsteadiness on feet Orthostatic dizziness Procedures CONSULT TO PHYSICAL THERAPY PHYSICAL THERAPY EVALUATION HIGH COMPLEX 45 MINS Marsha Arias PA-C [address] [place] [address] [facility] [address] [address] Referral ID Status Reason Start Date Expiration Date Visits Requested Visits Authorized [id number] Authorized PCP Requested Referral Auto-Generate d Referral [...] COMPLEX 45 MINS Mehrdad Victor MD [address] [place] [address] [facility] [place] [address] [place] [address] Referral ID Status Reason Start Date Expiration Date Visits Requested Visits Authorized [id number] Authorized PCP Requested Referral Auto-Generate d Referral [...] Abnormal gait Procedures CONSULT TO NEUROLOGY OFFICE/OUTPATIENT [facility] 60 MINUTES Ang Vickers MD [address] [place] [address] Referral ID Status Reason Start Date Expiration Date V isits Requested Visits Authorized [id number] Closed PCP Requested Referral 11/22/2023 11/21/2024 1 1 Reason Comments EMG BLOOD THINNER POLICY Specialty Diagnoses / Procedures Referred By Contac t Referred To Contact MR IMAGING Diagnoses Orthostatic dizziness Abnormal gait Procedures MRI BRAIN WO IVCON MRI BRAIN BRAIN STEM W/O CONTRAST MATERIAL Marsha Arias PA-C [address] [place] [address] [place] [address] Referral ID Status Reason Start Date Expiration Date V isits Requested Visits Authorized [id number] Closed Auto-Generate d Referral 12/05/2023 01/03/2025 1 1 Reason Comments Procedure Specialty Diagnoses / Procedures Referred By Contac t Referred To Contact [facility] Diagnoses Abnormal gait Procedures EMG(NEURO/NI) NERVE CONDUCTION STUDIES 9-10 STUDIES Marsha Arias PA-C [address] [place] [address] [facility] [address] [place] [address] Referral ID Status Reason Start Date Expiration Date V isits Requested Visits Authorized [id number] Closed Auto-Generate d Referral 12/05/2023 12/04/2024 1 1 Reason Comments Results Reason Comments Follow Up Specialty Diagnoses / Procedures Referred By Contac t Referred To Contact MR IMAGING Diagnoses Spinal stenosis of lumbar region, unspecified whether neurogenic claudication present Abnormal gait Procedures MRI LUMBAR SPINE WO IVCON MRI SPINAL CANAL LUMBAR W/O CONTRAST MATERIAL Marsha Arias PA-C [address] [place] [address] [place] [address] Referral ID Status Reason Start Date Expiration Date V isits Requested Visits Authorized [id number] Closed Auto-Generate d Referral 01/19/2024 02/17/2025 1 1 Reason Comments Results Reason Comments Follow Up 6 week follow up Reason Comments PT Eval Reason Onset Date Comments 4 month follow-up Immunizations 05/20/2024 Flu vaccination Reason Comments Follow Up Reason Comments requesting a disk MRI disk being reque sted Reason Comments abnormality of gait Specialty Diagnoses / Procedures Referred By Daniel berkowitz Referred To Contact Neurology Diagnoses Abnormality of gait Procedures CONSULT TO NEUROLOGY OFFICE/OUTPATIENT NEW HIGH MDM 60 MINUTES Marsha Arias PA-C [address] [place] [address] Referral ID Status Reason Start Date Expiration Date V isits Requested Visits Authorized [id number] Closed PCP Requested Referral 05/22/2024 05/22/2025 1 1 Reason Comments Received Outside Medical Records Externa l referral to Neurological Draper Reason Comments New Patient Possible PD Reason Comments Rash Reason Comments Derm Problem Reason Comments Dizziness Care Teams (unrecognized sec tion and content) Mine 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 Relationship Specialty Start Date End Date Ang Vickers MD [address] [place] [address] PCP - General 11/17/09 Mine 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 Relationship Specialty Start Date End Date Ang Vickers MD [address] [place] [address] PCP - General 11/17/09 Mine 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 Relationship Specialty Start Date End Date Ang Vickers MD [address] [place] [address] PCP - General 11/17/09 Mine 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 Relationship Specialty Start Date End Date Ang Vickers MD [address] [place] [address] PCP - General 11/17/09 Mine 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 Relationship Specialty Start Date End Date Ang Vickers MD [address] [place] [address] PCP - General 11/17/09 Mine 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 Relationship Specialty Start Date End Date Ang Vickers MD [address] [facility] [place] [address] PCP - General 11/17/09 Mine 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 Relationship Specialty Start Date End Date Ang Vickers MD [address] [place] [address] PCP - General 11/17/09 Mine 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 Relationship Specialty Start Date End Date Ang Vickers MD [address] [facility] [place] [address] PCP - General 11/17/09 Mine 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 Relationship Specialty Start Date End Date Ang Vickers MD [address] [place] [address] PCP - General 11/17/09 Mine 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 Relationship Specialty Start Date End Date Ang Vickers MD [address] [facility] [place] [address] PCP - General 11/17/09 Mine 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 Relationship Specialty Start Date End Date Ang Vickers MD [address] [facility] [place] [address] PCP - General 11/17/09 Team Status: Active Member Role Status Dates Dr. Ang Vickers MD Family Provider Active Dr. Ang Vickers MD Primary Care Provider Active Team Status: Inactive Member Role Status Dates Dr. Ang Vickers MD Primary Care Provider, Refer ring Provider Active Aguilar Carrion SOFTWARE TECHNICIAN, SOFTWARE TECHNICIAN-C Attending Provider Active Team Status: Inactive Member Role Status Dates Dr. Ang Vickers MD Primary Care Provider Active Dr. Altaf Manning DPM Attending Provider, Referri ng Provider Active Team Status: Active Member Role Status Dates Dr. Ang Vickers MD Primary Care Provider Active Dr. Newton Palmer MD Attending Provider Active Aguilar Carrion SOFTWARE TECHNICIAN, SOFTWARE TECHNICIAN-C Referring Provider Active Team Status: Active Member Role Status Dates Dr. Ang Vickers MD Primary Care Provider Active Aguilar Carrion SOFTWARE TECHNICIAN, SOFTWARE TECHNICIAN-C Referring Provider, Other Provide r Active Dr. Newton Palmer MD Attending Provider Active Team Status: Active Member Role Status Dates Dr. Ang Vickers MD Primary Care Provider Active Dr. Newton Palmer MD Attending Provider Active Team Status: Active Member Role Status Dates Dr. Ang Vickers MD Primary Care Provider Active Aguilar Carrion SOFTWARE TECHNICIAN, SOFTWARE TECHNICIAN-C Attending Provider Active Team Status: Inactive Member Role Status Dates Dr. Ang Vickers MD Primary Care Provider Active Aguilar Carrion SOFTWARE TECHNICIAN, SOFTWARE TECHNICIAN-C Attending Provider, Referring Pro vider Active Team Status: Active Member Role Status Dates Dr. Ang Vickers MD Primary Care Provider Active Aguilar Carrion SOFTWARE TECHNICIAN, SOFTWARE TECHNICIAN-C Attending Provider, Referring Pro vider Active Mine 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 Relationship Specialty Start Date End Date Ang Vickers MD [address] [place] [address] PCP - General 11/17/09 Mine 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 Relationship Specialty Start Date End Date Ang Vickers MD [address] [place] [address] PCP - General 11/17/09 Mine 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 Relationship Specialty Start Date End Date Ang Vickers MD [address] [place] [address] PCP - General 11/17/09 Mine 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 Relationship Specialty Start Date End Date Ang Vickers MD [address] [place], [place] [id number] PCP - General 11/17/09 Mine 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 Relationship Specialty Start Date End Date Ang Vickers MD [address] [place] [address] PCP - General 11/17/09 Mine 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 Relationship Specialty Start Date End Date Ang Vickers MD [address] [place] [address] PCP - General 11/17/09 Mine 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 Relationship Specialty Start Date End Date Ang Vickers MD [address] [place] [address] PCP - General 11/17/09 Mine 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 Relationship Specialty Start Date End Date Ang Vickers MD [address] [place] [address] PCP - General 11/17/09 Mine 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 Relationship Specialty Start Date End Date Ang Vickers MD [address] [place] [address] PCP - General 11/17/09 Mine 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 Relationship Specialty Start Date End Date Ang Vickers MD [address] [place] [address] PCP - General 11/17/09 Mine 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 Relationship Specialty Start Date End Date Ang Vickers MD [address] [place] [address] PCP - General 11/17/09 Mine 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 Relationship Specialty Start Date End Date Ang Vickers MD [address] [place] [address] PCP - General 11/17/09 Mine 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 Relationship Specialty Start Date End Date Ang Vickers MD [address] [place] [address] PCP - General 11/17/09 Mine 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 Relationship Specialty Start Date End Date Ang Vickers MD [address] [place] [address] PCP - General 11/17/09 Mine 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 Relationship Specialty Start Date End Date Ang Vickers MD [address] [place] [address] PCP - General 11/17/09 Mine 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 Relationship Specialty Start Date End Date Ang Vickers MD [address] [place] [address] PCP - General 11/17/09 Mine 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 Relationship Specialty Start Date End Date Ang Vickers MD [address] [place] [address] PCP - General 11/17/09 Mine 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 Relationship Specialty Start Date End Date Ang Vickers MD [address] [place] [address] PCP - General 11/17/09 Mine 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 Relationship Specialty Start Date End Date Ang Vickers MD [address] [place] [address] PCP - General 11/17/09 Daniela Muir, MOLD HOLDER.MOLD HOLDER [address] [place] [address] [facility] 08/05/24 Mine 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 Relationship Specialty Start Date End Date Ang Vickers MD [address] [place] [address] PCP - General 11/17/09 Daniela Muir, MOLD HOLDER.MOLD HOLDER [address] [place] [address] [employer]visor [facility] 08/05/24 Mine 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 Relationship Specialty Start Date End Date Ang Vickers MD [address] [place] [address] PCP - General 11/17/09 Daniela Muir, MOLD HOLDER.MOLD HOLDER [address] [place] [address] [facility]visor [facility] 08/05/24 Mine 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 Relationship Specialty Start Date End Date Ang Vickers MD [address] [place] [address] PCP - General 11/17/09 Daniela Muir, MOLD HOLDER.MOLD HOLDER [address] [place] [address] [facility]visor [facility] 08/05/24 Mine 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 Relationship Specialty Start Date End Date Ang Vickers MD [address] [place] [address] PCP - General 11/17/09 Daniela Muir, MOLD HOLDER.MOLD HOLDER [address] [place] [address] [facility] 08/05/24 Mine 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 Relationship Specialty Start Date End Date Ang Vickers MD [address] [place] [address] PCP - General 11/17/09 Daniela Muir, MOLD HOLDER.MOLD HOLDER [address] [place], [place] [address] [employer] [place] [facility] 08/05/24 Team Status: Active Member Role/Relationship Status Dates Dr. Ang Vickers MD Primary Care Provider Active Team Status: Inactive Member Role/Relationship Status Dates Dr. Ang Vickers MD Primary Care Provider Active Start: April 01, 2025 End: April 01, 2025 Dr. Donald Murry DO Emergency Provider Active Start: April 01, 2025 End: April 01, 2025 Team Status: Inactive Member Role/Relationship Status Dates Dr. Ang Vickers MD Primary Care Provider Active Start: April 02, 2025 End: April 02, 2025 Dr. 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 DATE CREATED AUTHOR 'S ORGANIZ ATION 07/04/2025 [facility] FOR RECORDS PERTAINING TO PATIENTS WHO [...] BE BASED ON THE PRIMARY CLINICAL RECORDS. [facility] [employer] [facility]. provides no warranty or guarantee of the accuracy or completeness of information in this document.
--- NOTE | 2025-07-11 01:36 | ED.VIS.FALL ---
HPI HPI - Fall History of Present Illness Chief Complaint: Fall Narrative Narrative: Patient was seen and examined after presenting to ED for evaluation after mechanical fall that he tripped at home landed directly on his buttocks was able to get up and ambulate right away but he is anticoagulated on Eliquis and he felt like a jarring experience falling to the ground no loss of consciousness no chest pain pressure shortness of breath no prodromal. 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) Essential (primary) hypertension BPH associated with nocturia Hyperlipidemia TIA (transient ischemic attack) (09/14/18) Home Medications Medication Instructions Recorded Last Taken Type finasteride 5 mg tablet 5 mg PO DAILY prostate 09/14/18 09/13/18 History multivitamin 1 ea PO DAILY vitamin 09/14/18 09/13/18 History apixaban 5 mg tablet (Eliquis) 5 mg PO BID #60 tabs 06/15/20 07/13/20 Rx tamsulosin 0.4 mg capsule (Flomax) 0.4 mg PO DAILY 06/05/21 Unknown History atorvastatin 40 mg tablet 40 mg PO DAILY 03/15/23 Unknown History lisinopril 40 mg tablet 40 mg PO DAILY 03/15/23 Unknown History vitamins A,C,I-hkzo-dfpkbt 4,296 1 cap PO BID 09/26/23 Unknown History mcg-226 mg-90 mg capsule (PreserVision AREDS) furosemide 40 mg tablet 40 mg PO Q OTHER DAY #45 tabs 05/07/24 Unknown Rx metoprolol succinate 100 mg 100 mg PO DAILY 10/03/24 Unknown History tablet,extended release 24 hr folic acid 800 mcg tablet 800 mcg PO DAILY 07/11/25 Unknown History Allergy/AdvReac Type Severity Reaction Status Date / Time No Known Allergies Allergy Verified 07/11/25 00:41 Family History Father Heart disease Surgical History History of carpal tunnel release (10/2020) History of cardioversion (07/13/20) History of left heart catheterization (05/25/20) History of total knee arthroplasty History of repair of rotator cuff History of total left hip replacement (2011) Social History Smoking Status: Former smoker how long ago did patient quit smokin alcohol intake: current alcohol intake frequency: a few times a week substance use type: does not use caffeine: Yes Type: coffee Number of servings: 1 ROS ROS ED ROS Narrative Pertinent Positives: Mechanical fall on Eliquis Pertinent Negatives: Head injury loss of consciousness vision changes weakness chest pain shortness of breath The remainder of review of systems negative unless otherwise stated in the HPI above. Systems reviewed including constitutional, psychiatric, cardiovascular, respiratory, integument, HENT, gastrointestinal. EXAM Physical Exam Narrative Exam Narrative: Airway is intact bilateral breath sounds nontender chest wall GCS 15 his blood pressure is appropriate he is normocephalic atraumatic pupils equal round reactive to light. Moves all extremities appropriately without difficulty nontender cervical thoracic and lumbar spine no step-off deformities has full range of motion of his lower extremities pelvis stable abdomen is soft nontender nondistended Const Vital Signs: 07/11/25 00:41 07/11/25 00:44 Temperature 98.4 F Temperature Source Oral Pulse Rate 64 Respiratory Rate 17 Respiratory Effort Normal Respiratory Depth Normal Respiratory Pattern Normal Blood Pressure 134/80 H Blood Pressure Mean 98 Pulse Ox 97 Oxygen Delivery Method Room Air Room Air MDM MDM MDM Narrative Medical decision making narrative: Nursing notes, triage notes, available previous documentation, and vital signs were reviewed. Any discrepancies noted were addressed. Differential Diagnoses: Low suspicion for an intracranial bleed but given the fact that there is a possibility the bridging veins tearing we will go ahead and evaluate Imaging Reviewed: Personally reviewed and interpreted by me: CT head I did not see any obvious intracranial bleed Previous Documentation Reviewed: None available or applicable at this time. ED Course: Patient presenting with a mechanical fall obtained a CT he is anticoagulated on Eliquis CT on my review does not appear to show bleed we will wait for the official read but plan for discharge. 0145: Official CT head was without acute pathology patient will be discharged home with return precautions and follow-up recommendation This note was made utilizing voice recognition software. All attempts were made to correct spelling or other errors prior to note completion. However, due to the fast-paced nature of emergency medicine, some errors may still be present. Radiography Diagnostic Testing: Clinical Impression(s) from Imaging Studies Brain CT 07/11/25 01:05 IMPRESSION: No CT evidence of an acute brain abnormality. Reading Location: [place] [address] Discharge Plan Triage Chief Complaint: Fall ED Provider: Vicky Maciel Dx/Rx/DC Orders Clinical Impression: Fall from standing, Anticoagulated on Eliquis Instructions: ED Mechanical Fall Prescriptions: No Action atorvastatin 40 mg tablet 40 mg PO DAILY lisinopril 40 mg tablet 40 mg PO DAILY PreserVision AREDS 4,296 mcg-226 mg-90 mg capsule 1 cap PO BID metoprolol succinate 100 mg tablet extended release 24 hr 100 mg PO DAILY multivitamin 1 EACH tablet 1 ea PO DAILY finasteride 5 MG tablet 5 mg PO DAILY tamsulosin [Flomax] 0.4 mg Capsule 0.4 mg PO DAILY folic acid 800 mcg tablet 800 mcg PO DAILY Eliquis 5 mg tablet 5 mg PO BID Qty: 60 12RF furosemide 40 mg tablet 40 mg PO Q OTHER DAY Qty: 45 3RF Primary Care Provider: Ang Vickers Referrals: Ang Vickers MD [Primary Care Provider, Internal Medicine] Activity Restrictions/Additional Instructions: Be sure to follow-up with your doctor if you are having worsening symptoms do not hesitate to return Print Language: Citizen Of [place] Disposition Disposition: Home, Self Care
[2025-07-11 01:49] VITALS: BP 131/72; PULSE 63; RESP 17; TEMP 36.9; O2SAT 97
== END 2025-07-11 01:50 | disposition home or self-care (01) ==
PROVIDERS: Emergency Provider Specialist/Technologist Athletic Trainer; PCP Internal Medicine; Visit Provider Specialist/Technologist Athletic Trainer
DX: Z04.3 Encounter for examination and observation following other accident (principal); I48.11 Longstanding persistent atrial fibrillation; I10 Essential (primary) hypertension; Z79.01 Long term (current) use of anticoagulants; Z79.899 Other long term (current) drug therapy; Z87.891 Personal history of nicotine dependence
CPT/HCPCS: 70450; 99282